=== PATIENT | female | born 1965 | race Caucasian/White ===

== ENCOUNTER 2019-05-28 17:02 | Outpatient (RCR) | payer BC, SELFPAY ==
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
--- NOTE | 2019-06-16 16:31 | PCPTNOTE ---
patient cancelled appt today. mireille
== END 2019-08-26 23:59 | disposition home or self-care (01) ==
LOC: CHSPT 17:02
DX: M43.6 Torticollis (principal)
CPT/HCPCS: 97110; 97140; 97162

== ENCOUNTER 2020-11-03 10:05 | Outpatient (CLI) | payer BC, SELFPAY ==
--- NOTE | 2020-11-03 12:36 | NEURO_ITS ---
PATIENT NUMBER: [id number] IMPRESSION: # Complains of left upper extremity numbness. # Evolving left Carpal Tunnel syndrome; not enough to make electrical diagnosis at this stage. 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 # Normal F- waves. # Normal needle exam. Nerve Conduction Studies Anti Sensory Summary Table Stim Site NR Peak (ms) P-T Amp (?V) Site1 Site2 Delta-P (ms) Dist (cm) Geovani (m/s) Left Median Anti Sensory (2-3nd Digit) Wrist 3.3 58.9 Wrist 2-3nd Digit 3.3 14.0 42 Wrist 3.4 86.2 Wrist 2-3nd Digit 3.3 14.0 42 Right Median Anti Sensory (2-3nd Digit) Wrist 2.9 286.4 Wrist 2-3nd Digit 2.9 14.0 48 Wrist 2.9 107.8 Wrist 2-3nd Digit 2.9 14.0 48 Left Radial Anti Sensory (Base 1st Digit) Wrist 2.4 17.5 Wrist Base 1st Digit 2.4 0.0 Right Radial Anti Sensory (Base 1st Digit) Wrist 2.7 44.3 Wrist Base 1st Digit 2.7 0.0 Left Ulnar Anti Sensory (5th Digit) Wrist 2.3 82.2 Wrist 5th Digit 2.3 14.0 61 Right Ulnar Anti Sensory (5th Digit) Wrist 2.3 74.1 Wrist 5th Digit 2.3 14.0 61 Motor Summary Table Stim Site NR Onset (ms) O-P Amp (mV) Site1 Site2 Delta-0 (ms) Dist (cm) Geovani (m/s) Left Median Motor (Abd Poll Brev) Wrist 3.1 1.7 Elbow Wrist 6.0 28.0 55 Elbow 9.1 1.2 Right Median Motor (Abd Poll Brev) Wrist 3.1 9.5 Elbow Wrist 5.2 28.0 54 Elbow 8.3 9.0 Left Ulnar Motor (Abd Dig Minimi) Wrist 2.4 6.4 A Elbow Wrist 5.2 28.0 54 A Elbow 7.3 5.2 Right Ulnar Motor (Abd Dig Minimi) Wrist 3.0 9.3 A Elbow Wrist 5.7 28.0 52 A Elbow 8.7 8.4 B Elbow Wrist 3.8 20.0 53 B Elbow 6.8 4.3 F Wave Studies NR F-Lat (ms) L-R F-Lat (ms) Left Median (Mrkrs) (Abd Poll Brev) 28.86 0.15 Right Median (Mrkrs) (Abd Poll Brev) 29.02 0.15 Left Ulnar (Mrkrs) (Abd Dig Min) 26.64 0.62 Right Ulnar (Mrkrs) (Abd Dig Min) 27.26 0.62 EMG Side Muscle Nerve Root Ins Act Fibs Amp Dur Recrt Comment Left 1stDorInt Ulnar C8-T1 Nml Nml Nml Nml Nml Left Ext Indicis Radial (Post Int) C7-8 Nml Nml Nml Nml Nml Left Ext Digitorum Radial (Post Int) C7-8 Nml Nml Nml Nml Nml Left BrachioRad Radial C5-6 Nml Nml Nml Nml Nml Left PronatorTeres Median C6-7 Nml Nml Nml Nml Nml Left Abd Poll Brev Median C8-T1 Nml Nml Nml Nml Nml Right 1stDorInt Ulnar C8-T1 Nml Nml Nml Nml Nml Right Ext Indicis Radial (Post Int) C7-8 Nml Nml Nml Nml Nml Right Ext Digitorum Radial (Post Int) C7-8 Nml Nml Nml Nml Nml Right BrachioRad Radial C5-6 Nml Nml Nml Nml Nml Right PronatorTeres Median C6-7 Nml Nml Nml Nml Nml Right Abd Poll Brev Median C8-T1 Nml Nml Nml Nml Nml MTDD
== END 2020-11-03 10:06 | disposition home or self-care (01) ==
PROVIDERS: PCP Family Medicine; Visit Provider Nurse Practitioner
DX: G56.00 Carpal tunnel syndrome, unspecified upper limb (principal); M79.601 Pain in right arm
CPT/HCPCS: 95886; 95913

== ENCOUNTER 2021-04-14 07:36 | Emergency (ER) | payer BC, SELFPAY ==
[2021-04-14] VITALS (11 sets, daily range): BP systolic 119–174; BP diastolic 53–114; PULSE 78–98; RESP 18–20; TEMP 35.9–37.1; O2SAT 93–100
--- NOTE | ~2021-04-14 | XR_ITS ---
EXAMINATION: XR chest 1V portable 04/14/2021 07:57 INDICATION: Weakness PROCEDURE: AP portable chest COMPARISON: 10/30/2009 FINDINGS: The lungs are clear. The cardiomediastinal silhouette is within normal limits. There are no pleural effusions. There is no pneumothorax suspected. IMPRESSION: 1: NO ACUTE CARDIOPULMONARY DISEASE. Reviewed, dictated and finalized at location A. BALL INSPECTOR
--- NOTE | ~2021-04-14 | CT_ITS ---
EXAMINATION: CTA brain carotid DATE: 04/14/2021 09:16 INDICATION: Acute cerebrovascular accident. TECHNIQUE: Computed tomographic angiography (CTA) of the head was performed with 100 mL Omnipaque-350 intravenous contrast. CTA of the neck was performed with intravenous contrast. Automated exposure co ntrol and iterative reconstruction technique were employed. The dose-length product was 1048.02 mGy-c m. Maximum intensity projection and volume rendered 3D-reconstructions were created by the [employer] st on a separate workstation. COMPARISON: Head CT 04/14/2021 FINDINGS: HEAD CTA: There is cortical hypoattenuation the left frontal lobe and left insula, consistent with ac july infarct. There is no intracranial hemorrhage or abnormal mass lesion. The ventricles are normal i n size. The orbits are normal. The mastoid air cells are normal. There is mild mucosal thickening in the paranasal sinuses. The vertebral arteries are codominant. There is no significant stenosis of bas ilar artery or the posterior cerebral arteries. There is no significant stenosis of the intracranial internal carotid arteries or anterior cerebral arteries. Anterior communicating artery is normal. The re is mild stenosis of a left M2 middle cerebral artery branch that was hyperdense on the noncontrast CT. There is no aneurysm. NECK CTA: There is mild scarring at the lung apices. There is mild emphysema. There is a 1.9 cm nodul e in right thyroid lobe. There are no pathologically enlarged lymph nodes. There is mild stenosis of the proximal subclavian arteries and common carotid arteries. There is no significant stenosis of the vertebral arteries. There is plaque in the proximal internal carotid arteries. There is 0% stenosis of the proximal right internal carotid artery relative to normal distal artery lumen diameter (NASCET criteria). There is 0% stenosis of the proximal left internal carotid artery relative to normal dist al artery lumen diameter. There is moderate cervical spondylosis. IMPRESSION: 1. Acute infarct involving the left frontal lobe and left insula. 2. Mild stenosis of a left M2 middle cerebral artery branch that was hyperdense on the noncontrast C T. Note that the attenuation on the noncontrast CT was suspicious for a calcified embolus, which woul d be obscured by contrast on this exam and result in underestimation of stenosis. The arteries distal to this segment opacify normally. 3. 0% stenosis of the proximal internal carotid arteries relative to normal distal artery lumen diam eters (NASCET criteria). 4. Thyroid nodule. Consider thyroid ultrasound for risk stratification. Reviewed, dictated and finalized at location A. CLEANER IMPRESSION: 1. Acute infarct involving the left frontal lobe and left insula. 2. Mild stenosis of a left M2 middle cerebral artery branch that was hyperdens e on the noncontrast CT. Note that the attenuation on the noncontrast CT was jackson spicious for a calcified embolus, which would be obscured by contrast on this e xam and result in underestimation of stenosis. The arteries distal to this segm ent opacify normally. 3. 0% stenosis of the proximal internal carotid arteries relative to normal di stal artery lumen diameters (NASCET criteria). 4. Thyroid nodule. Consider thyroid ultrasound for risk stratification.
--- NOTE | ~2021-04-14 | CT_ITS ---
EXAMINATION: CT brain wo con DATE: 04/14/2021 07:57 INDICATION: Facial weakness. Altered mental status. TECHNIQUE: Computed tomography (CT) of the head was performed without intravenous contrast. The mA wa s adjusted according to patient size. Iterative reconstruction technique was employed. The dose-lengt h product was 681.00 mGy-cm. COMPARISON: None FINDINGS: There is low-attenuation of sanches matter in left frontal lobe and left insula, consistent wi th infarct. There is a hyperdense left M2 middle cerebral artery branch in the range of calcification attenuation (104 HU). There is no intracranial hemorrhage or abnormal mass lesion. The ventricles ar e normal in size. There is mild mucosal thickening in the ethmoid sinuses. The orbits are normal. The mastoid air cells are normal. IMPRESSION: 1. Acute infarct involving the left frontal lobe and left insula. I called this result to Dr. Estee malloy 2. Hyperdense left M2 middle cerebral artery branch in the range of calcification attenuation. Reviewed, dictated and finalized at location A. AULIC ROCKBREAKER OPERATOR IMPRESSION: 1. Acute infarct involving the left frontal lobe and left insula. I called this result to Dr. Sandoval. 2. Hyperdense left M2 middle cerebral artery branch in the range of calcificati on attenuation.
--- NOTE | 2021-04-14 07:41 | ED.NEUROSD ---
HPI - Neuro Symptoms/Deficit General Source: patient and family Mode of arrival: ambulatory Limitations: language barrier and clinical condition ( expressive aphasia) History of Present Illness HPI Narrative: 56-year-old woman with a history of type 2 diabetes, hypertension and dyslipidemia brought to the emergency department today by her after he found her with mumbling speech and facial droop on waking her for work this morning. He states that he saw her last night and she was well. She denies headache, chest pain, vomiting, and recent head injury. She denies prior similar symptoms. Time: 07:15 Related Data Home Medications Medication Instructions Recorded Confirmed albuterol sulfate 2 puff INHALATION Q4-5H PRN 04/14/21 04/14/21 bupropion HCl 300 mg PO DAILY 04/14/21 04/14/21 cyclobenzaprine 10 mg PO TID PRN 04/14/21 04/14/21 dulaglutide [Trulicity] 1.5 mg SUBCUT WEEKLY 04/14/21 04/14/21 fluoxetine 60 mg PO DAILY 04/14/21 04/14/21 furosemide 20 mg PO DAILY 04/14/21 04/14/21 gabapentin 100 mg PO TID 04/14/21 04/14/21 insulin aspart U-100 [Novolog 1 sliding scale dose SUBCUT 04/14/21 04/14/21 U-100 Insulin aspart] USEASDIRECTD lisinopril 30 mg PO DAILY 04/14/21 04/14/21 melatonin 10 mg PO HS 04/14/21 04/14/21 metformin 500 mg PO BID 04/14/21 04/14/21 metoprolol succinate 200 mg PO DAILY 04/14/21 04/14/21 omeprazole 20 mg PO BID 04/14/21 04/14/21 rosuvastatin 20 mg PO HS 04/14/21 04/14/21 ondansetron [Zofran ODT] 8 mg PO Q8H PRN 04/15/21 04/15/21 Allergies Allergy/AdvReac Type Severity Reaction Status Date / Time Sulfa (Sulfonamide Allergy Unknown Rash Verified 04/14/21 09:36 Antibiotics) Latex, Natural Rubber Allergy Swelling Verified 04/14/21 09:36 of Lip/Tongue/Throat Course Course Emergency Course: 0815: Discussed findings with Dr. Hauser, stroke specialist at [facility] in [place]. Does not believe that there is a reason for critical transfer given the time since her last known well And the positive findings on her CT scan. Accepted her for admit pending a open appropriate bed. 0851: Discussed findings with Dr. Garrett, stroke specialist at [facility]. he states that she may be a candidate for clot removal NS for CTA for further evaluation. 0905: She was on her way to the scanner now. 185: patient's findings are stable and her vitals remained stable. There are no beds available at either [facility] or [facility]. She will be an ER hold pending transfer. Vital Signs Vital signs: Vital Signs Temperature 36.1 C L 04/14/21 07:37 Pulse Rate 98 04/14/21 07:37 Respiratory Rate 20 04/14/21 07:37 Blood Pressure 174/114 H 04/14/21 07:37 Pulse Oximetry 100 04/14/21 07:37 Temperature 36.2 C L 04/15/21 22:23 Pulse Rate 93 04/15/21 22:23 Respiratory Rate 18 04/15/21 22:23 Blood Pressure 144/79 H 04/15/21 22:23 Pulse Oximetry 96 04/15/21 22:23 MDM - Neuro Symptoms/Deficit Lab Data Result diagrams: 04/14/21 08:10 04/14/21 08:10 Labs: Lab Results 04/14/21 04/14/21 04/14/21 Range/Units 07:45 07:55 08:10 WBC (4.8-10.8) K/mm3 RBC (4.20-5.40) M/mm3 Hgb (12.0-15.0) g/dL Hct (35.0-49.0) % MCV (78.0-102.0) fL MCH (27.0-31.0) pg MCHC (32.0-36.0) g/dL RDW (11.6-14.4) % Plt Count (150-420) K/mm3 MPV (9.2-11.8) fl Immature Gran % (Auto) (0.0-0.0) % Neut % (Auto) (50.0-70.0) % Lymph % (Auto) (18.0-42.0) % [place] % (Auto) (2.0-11.0) % Eos % (Auto) (1.0-6.0) % Baso % (Auto) (0.0-1.0) % Lymph # (Auto) (1.10-4.50) K/mm3 [place] # (Auto) (0.10-0.90) K/mm3 Eos # (Auto) (0.02-0.50) K/mm3 Baso # (Auto) (0.00-0.10) K/mm3 Abs Immat Gran (auto) (0.00-0.00) K/mm3 Absolute Neuts (auto) (1.7-7.2) K/mm3 Absolute Nucleated RBC (0.00-0.00) K/mm3 Nucleated RBC % (0-0.0) % PT (9.50-12.10) Seconds INR APTT (23.90-30.70) SEC Sodium
--- NOTE | 2021-04-14 07:42 | ECG_ITS ---
Measurements Intervals [place] Rate: 86 P: 49 WA: 141 QRS: 48 QRSD: 80 T: 71 QT: 364 QTc: 437 Interpretive Statements SINUS RHYTHM BORDERLINE T WAVE ABNORMALITY- ANTERIOR LEADS BASELINE ARTIFACT- I, II, III, AVR, AVL, AVF, V1-V6 BORDERLINE ECG Electronically Signed On 04-14-2021 8:58:35 ORE TRIMMER by Ronny Woods D.O.
[2021-04-14 07:57] LABS: Glucose Point of Care 199 mg/dl (65-105)
--- NOTE | 2021-04-14 08:09 | PC.NURSE ---
called [facility] for transfer...no beds available.
--- NOTE | 2021-04-14 08:12 | PC.NURSE ---
called [facility] in [place] for transfer...no bed available
--- NOTE | 2021-04-14 08:13 | PCDIET ---
erp on phone with compliance coordinator at [facility] discussing potential transfer
[2021-04-14 08:16] LABS: Basophils Absolute Auto 0.11 K/mm3 (0.00-0.10); Eosinophils Absolute Auto 0.37 K/mm3 (0.02-0.50); Eosinophils Percent Auto 3.5 % (1.0-6.0); Hematocrit 44.7 % (35.0-49.0); Hemoglobin 14.6 g/dL (12.0-15.0); Immature Granulocyte Absolute 0.07 K/mm3 (0.00-0.00); Immature Granulocyte Percent A 0.7 % (0.0-0.0); Lymphocytes Absolute Auto 3.74 K/mm3 (1.10-4.50); Lymphocytes Percent Auto 35.1 % (18.0-42.0); Mean Corpuscular HGB Conc 32.7 g/dL (32.0-36.0); Mean Corpuscular Hemoglobin 31.4 pg (27.0-31.0); Mean Corpuscular Volume 96.1 fL (78.0-102.0); Mean Platelet Volume 10.3 fl (9.2-11.8); Monocytes Absolute Auto 0.78 K/mm3 (0.10-0.90); Monocytes Percent Auto 7.3 % (2.0-11.0); Neutrophils Absolute Auto 5.6 K/mm3 (1.7-7.2); Neutrophils Percent Auto 52.4 % (50.0-70.0); Platelet Count Result 281 K/mm3 (150-420); Red Blood Count 4.65 M/mm3 (4.20-5.40); Red Cell Distribution Width 12.9 % (11.6-14.4); White Blood Count 10.7 K/mm3 (4.8-10.8)
[2021-04-14 08:29] LABS: Partial Thromboplastin Time 24.7 SEC (23.90-30.70); Prothrombin Time 10.7 Seconds (9.50-12.10)
[2021-04-14 08:34] LABS: Alanine Aminotransferase 41 U/L (14-59); Albumin Level 3.8 g/dL (3.4-5.0); Alkaline Phosphatase 87 U/L (46-116); Anion Gap 13 mmol/L (8-16); Aspartate Amino Transferase 25 U/L (15-37); Bilirubin,Total 0.5 mg/dL (0.00-1.00); Blood Urea Nitrogen 16 mg/dL (7-18); Calcium 9.3 mg/dL (8.5-10.1); Carbon Dioxide 28 mmol/L (21-32); Chloride 97 mmol/L (98-108); Estimated Glomerular Filt Rate 48; Glucose 220 mg/dL (70-99); Osmolality Calculated 294 mOsm/kg (285-295); Potassium 4.3 mmol/L (3.5-5.1); Sodium 138 mmol/L (136-145); Total Protein 7.6 g/dL (6.4-8.2); Troponin I 5.6 ng/L (0.00-60.4)
[2021-04-14 08:40] LABS: SARS-CoV-2 Ag Negative (Negative)
--- NOTE | 2021-04-14 08:40 | PC.NURSE ---
call to [facility] for transfer, awaiting call back. [phone] dr plata speaking with [facility]
--- NOTE | 2021-04-14 09:03 | PC.NURSE ---
[id number] dr pl[address] speaking with dr maier at [facility], pt to go for cta head per his request. ct sent to [facility] per telerad. pt continues with aphasia
--- NOTE | 2021-04-14 09:26 | PC.NURSE ---
pt resting per cot. family at bedside.
--- NOTE | 2021-04-14 10:25 | PC.NURSE ---
CALL TO HENNA AT [facility] , REGARDING CTA RESULTS.
[2021-04-14 12:47] LABS: Glucose Point of Care 154 mg/dl (65-105)
--- NOTE | 2021-04-14 13:12 | PC.NURSE ---
INSULIN PUMP REFILLED AND INFUSING . SETUP PER PT AND RN.
[2021-04-14 14:47] LABS: Glucose Point of Care 140 mg/dl (65-105)
[2021-04-14] MEDS: SODIUM CHLORIDE 0.9% IV 500 ML 999 ML IV CONT (16:51)
[2021-04-14] MEDS: DEXTROSE 5%/0.45% SOD CHL 1,000 ML 100 ML IV CONT (16:52)
[2021-04-14 17:42] LABS: Glucose Point of Care 140 mg/dl (65-105)
--- NOTE | 2021-04-14 17:46 | PC.NURSE ---
pt resting per cot, at bedside. no complaints voiced.
[2021-04-14 18:43] LABS: Glucose Point of Care 137 mg/dl (65-105)
--- NOTE | 2021-04-14 18:55 | PC.NURSE ---
pt to go to room 206 for ER HOLD.
[2021-04-15] VITALS (7 sets, daily range): BP systolic 142–154; BP diastolic 69–86; PULSE 82–93; RESP 14–20; TEMP 35.9–36.6; O2SAT 94–98
[2021-04-15 00:37] LABS: Glucose Point of Care 118 mg/dl (65-105)
[2021-04-15 00:37] LABS: Glucose Point of Care 130 mg/dl (65-105)
[2021-04-15 00:37] LABS: Glucose Point of Care 124 mg/dl (65-105)
[2021-04-15 02:26] LABS: Glucose Point of Care 121 mg/dl (65-105)
[2021-04-15] MEDS: DEXTROSE 5%/0.45% SOD CHL 1,000 ML 100 ML IV CONT ×3 (02:29→20:48)
[2021-04-15 03:05] LABS: Add Urine Microscopic? YES; Appearance Urine Clear (Clear); Bilirubin Urine Negative (Negative); Blood Urine Negative (Negative); Color Urine Light Yellow (Yellow); Glucose Urine UA Negative (Negative); Ketones Urine Negative (Negative); Leukocyte Esterase Ur Trace LEU/UL (Negative); Nitrate Urine Negative (Negative); Protein Urine Trace (Negative); Urobilinogen Urine 0.2 mg/dL (0.2-1.0)
[2021-04-15 03:11] LABS: Amorphous Sediment Urine Few; Bacteria Urine Trace /hpf; RBC Urine 0-2 /hpf (0-2); Squamous Epithelial Cell Urine Few /hpf (Few); WBC Urine 0-3 /hpf (0-3)
[2021-04-15 03:12] LABS: Amphetamine Screen Urine Negative (Negative); Barbiturate Screen Urine Negative (Negative); Benzodiazepines Screen Urine Negative (Negative); Cannabinoid Screen Urine Positive (Negative); Cocaine Screen Urine Negative (Negative); Methadone Screen Urine Negative (Negative); Opiate Screen Urine Negative (Negative); Phencyclidine Screen Urine Negative (Negative)
[2021-04-15 04:43] LABS: Glucose Point of Care 142 mg/dl (65-105)
[2021-04-15 08:12] LABS: Glucose Point of Care 121 mg/dl (65-105)
--- NOTE | 2021-04-15 08:19 | PC.NURSE ---
Call placed to [facility] and talked with arelis. claims she is there list for bed and that they are not sure at this time when a bed will be available. Rajiv called also at this time. talked with catherine and at this time she is on there list, #1 spot and hopely they have open bed this afternoon.
[2021-04-15 10:25] LABS: Glucose Point of Care 134 mg/dl (65-105)
[2021-04-15] MEDS: CLOPIDOGREL BISULFATE 75 MG TABLET PO (15:24)
[2021-04-15 16:22] LABS: Glucose Point of Care 128 mg/dl (65-105)
--- NOTE | 2021-04-15 16:34 | PC.NURSE ---
@ 1500 both [facility] and [facility] were called on bed placement. still no beds. remains on both hospitals waiting list. ERP aware.
[2021-04-15 20:13] LABS: Glucose Point of Care 136 mg/dl (65-105)
--- NOTE | 2021-04-15 22:00 | PC.NURSE ---
report called to pricilla at [facility], notified, pt aware ambulance called back and will be atleast an hour due to other transfers ahead of her
== END 2021-04-15 22:20 | disposition short-term general hospital (02) ==
LOC: CHSED 19:14 → CHS2ND 19:20
PROVIDERS: Emergency Provider Emergency Medicine
DX: I63.9 Cerebral infarction, unspecified (principal); E11.9 Type 2 diabetes mellitus without complications; Z20.822 Contact with and (suspected) exposure to COVID-19; Z79.899 Other long term (current) drug therapy; I10 Essential (primary) hypertension; E78.5 Hyperlipidemia, unspecified; Z79.4 Long term (current) use of insulin
CPT/HCPCS: 36415; 70450; 70496; 70498; 71045; 80053; 80307; 81001; 82948; 84484; 85025; 85610; 85730; 87426; 93005; 96360; 96361; 99285; A9270; C9803; J7040; Q9967

== ENCOUNTER 2021-04-21 09:41 | Outpatient (RCR) | payer BC, SELFPAY ==
--- NOTE | 2021-06-12 14:15 | PCSTNOTE ---
Speech Therapy Initial Evaluation/Discharge: Thank you for referring Pravin Pompa to [facility].? Pt is opting to continue therapy at [facility] due to its closer proxemics to her home. Attending Provider: PHYSICIAN NOT ON STAFF Outpatient Past Medical History Past Medical History No Past Medical/Surgical History Patient/Family Denies Significant Past Medical/ Surgical History Evaluation Information Problem Diagnosis CVA Onset 04/14/21 Additional Evaluation Detail reports patient was admitted to [facility] on 04/14/21 and remained there until late Saturday night when she was transferred to [facility] where she remained until Saturday afternoon. Patient recieved a brief Speech Therapy evaluation but no further Speech Therapy was completed. Subjective Information Patient stated, I need it to Query Text:As Reported By Patient/ so that I can go...when I'm Family gonna...I need a job and I can 't and it's still kind of fuzzy that I can't. Patient reports that she knows her speech has improved since Saturday. States I didn't know anything. Patient states that she knew the people and the information (i.e. names) but could not say them, but upon questioning admitted that she could not even remember the words. Mildly better but still cannot do it. Patient stated using one-word utterances: Store Product Demonstrator, Worksaver and Farm Machinery . Patient stated, It takes a lot to do it but I'm trying. reports patient still gets confused and very frustrated when she wants to get out what she wants to express. Patient reports she works and is on disability and she is motivated to get back to work. Prior Level of Function Home Setting Home Type House Prior Swallow Level Prior In
== END 2021-06-12 14:47 | disposition home or self-care (01) ==
LOC: ANHST 09:41
DX: I69.320 Aphasia following cerebral infarction (principal); R26.89 Other abnormalities of gait and mobility
CPT/HCPCS: 92523

== ENCOUNTER 2021-05-04 11:44 | Outpatient (RCR) | payer BC, SELFPAY ==
--- NOTE | 2021-05-04 13:55 | STOPEVAL ---
Thank you for referring Pravin Pompa to [facility].? The patient is scheduled to be seen for therapy? 2x/week for 10 sessions. Please review, sign, date and return this plan of care SERINA. I agree with and certify that the following plan of care is medically necessary. Referring Physician Date Admitting Provider: Attending Provider: MARISSA JEREZ Referring Provider: MARIO Outpatient Evaluation Start: 05/04/21 13:14 Freq: Status: Active Protocol: Document 05/04/21 12:00 [facility] (Rec: 05/04/21 13:55 [facility] [id number]) Therapy Assessment Status Assessment Status Assessment Status Evaluation Outpatient Past Medical History Past Medical History Source of Past Medical History Patient,Family/Significant Other Neurological History Hx Cerebrovascular Accident (CVA) Yes Hx Other Neurological Disorders Yes: PREVIOUS STROKE LIKE SYMPTOMS WITH APHASIA, TREMOR Cardiovascular History Hx Chest Pain Yes Hx Hypercholesterolemia Yes Hx Hypertension Yes Respiratory History Hx Asthma Yes Hx Bronchitis Yes Hx Chronic Obstructive Pulmonary Disease Yes (COPD) Hx Other Respiratory Disorders Yes: SHORTNESS OF BREATH ON EXERTION Gastrointestinal History Hx Appendectomy Yes Hx Cholecystectomy Yes Hx Gastroesophageal Reflux Disease Yes Hx Other Gastrointestinal Disorders Yes: BARRETTS ESOPHAGUS, GASTRITIS, DUODENITIS, SERATED ADENOMA OF COLON Musculoskeletal History Hx Arthritis Yes Hx Fibromyalgia Yes Hx Orthopedic Surgery Yes: MALLET DEFORMITY OF RIGHT MIDDLE FINGER, CARPAL TUNNEL Hx Osteoporosis Yes Hx Other Musculoskeletal Disorders Yes: TORTICOLLIS, RIGHT CERVICAL RADICULOPATHY, OSTOEPENIA Endocrine History Hx Diabetes Yes Hx Insulin Pump Yes Reproductive History Hx Section Yes Hx Post Menopausal Yes: HOT FLASHES Psychosocial History Hx Anxiety Yes Other History Hx of Latex Allergy Yes Evaluation Information Problem Diagnosis CVA Onset 04-14-21 Subjective Information Pt presents with cognititive Query Text:As Reported By Patient/ and communication deficits ( Family Aphasia) due to left side stroke. Previous Treatments Previous Treatments For This Problem She received a few days of speech t
--- NOTE | 2021-05-04 14:04 | PCSTNOTE ---
On 05/04/21, the student, [Desiree Marcos ], provided care and completed GMG33 documentation on this patient. I have reviewed the student's documentation and agree with the findings.
--- NOTE | 2021-05-08 14:42 | PCSTNOTE ---
On 05/08/21, the student, [Desiree Marcos], provided care and completed [employer] documentation on this patient. I have reviewed the student's documentation and agree with the findings.
--- NOTE | 2021-05-11 12:09 | PCSTNOTE ---
On 05/11/21, the student, [Desiree Marcos], provided care and completed [employer] documentation on this patient. I have reviewed the student's documentation and agree with the findings.
--- NOTE | 2021-05-15 15:36 | PCSTNOTE ---
On 05/15/21, the student, [Desiree Marcos], provided care and completed [employer] documentation on this patient. I have reviewed the student's documentation and agree with the findings.
--- NOTE | 2021-05-18 11:38 | PCSTNOTE ---
On 05/18/21, the student, [Desiree Marcos], provided care and completed [place] documentation on this patient. I have reviewed the student's documentation and agree with the findings.
--- NOTE | 2021-06-12 11:36 | PCSTNOTE ---
I agree with and certify that the above recommended change(s) to the plan of care are medically necessary. ? Referring Physician?Date Admitting Provider: Attending Provider: MARISSA JEREZ Referring Provider: SPEECH THERAPY PROGRESS REPORT Pravin Pompa has completed a total number of 10 out of 10 treatment sessions for Aphasia I69.320 since the evaluation was completed on 05/04/21. Summary of Progress: Patient and family have demonstrated consistent attendance and good compliance of home program. Strategies to promote improvements with set goals are reviewed on a regular basis to facilitate carry over and follow through with targeted goals. Patient has demonstrated excellent progress over this past quarter as evidenced by meeting 2 set goals and showing progression in other goals to target auditory comprehension, reading comprehension and verbal expression skills. The patient continues to struggle with finding the words she wants to say at times and some thoughts are somewhat unorganized. She also continues to struggle with writing abilities resulting in unorganized thoughts, spelling errors, and omission of words. 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 Recommendations: Thank you for referring Pravin Pompa to [facility].? The patient is scheduled to be seen for therapy? 2x/week for 10 sessions.? Please review, sign, date and return this plan of care SERINA.
--- NOTE | 2021-06-15 10:21 | PCSTNOTE ---
Patient called & cancelled scheduled appointment this date due to being sick.
--- NOTE | 2021-06-29 08:29 | PCSTNOTE ---
The patient treatment was not able to be completed on 06/29/21 due to illness. Will plan to continue treatment per plan of care.
--- NOTE | 2021-07-17 10:05 | STOPEVAL ---
Addendum entered by BRIE Montiel 07/18/21 16:30: Please disregard the note below and refer to note dated 07/18/21 for Speech Therapy Evaluation and updated plan of care. Original Note: Thank you for referring Pravin Pompa to [facility].? The patient is scheduled to be seen for therapy? _2x/week for 5 weeks. Please review, sign, date and return this plan of care SERINA. I agree with and certify that the following plan of care is medically necessary. Referring Physician Date Admitting Provider: Attending Provider: MARISSA JEREZ Referring Provider: MARIO Outpatient Evaluation Start: 05/04/21 13:14 Freq: Status: Active Protocol: Document 07/17/21 08:00 [facility] (Rec: 07/17/21 10:03 [facility] [id number]) Therapy Assessment Status Assessment Status Assessment Status Re-evaluation Outpatient Past Medical History Past Medical History Source of Past Medical History Patient,Family/Significant Other Neurological History Hx Cerebrovascular Accident (CVA) Yes Hx Other Neurological Disorders Yes: PREVIOUS STROKE LIKE SYMPTOMS WITH APHASIA, TREMOR Cardiovascular History Hx Chest Pain Yes Hx Hypercholesterolemia Yes Hx Hypertension Yes Respiratory History Hx Asthma Yes Hx Bronchitis Yes Hx Chronic Obstructive Pulmonary Disease Yes (COPD) Hx Other Respiratory Disorders Yes: SHORTNESS OF BREATH ON EXERTION Gastrointestinal History Hx Appendectomy Yes Hx Cholecystectomy Yes Hx Gastroesophageal Reflux Disease Yes Hx Other Gastrointestinal Disorders Yes: BARRETTS ESOPHAGUS, GASTRITIS, DUODENITIS, SERATED ADENOMA OF COLON Musculoskeletal History Hx Arthritis Yes Hx Fibromyalgia Yes Hx Orthopedic Surgery Yes: MALLET DEFORMITY OF RIGHT MIDDLE FINGER, CARPAL TUNNEL Hx Osteoporosis Yes Hx Other Musculoskeletal Disorders Yes: TORTICOLLIS, RIGHT CERVICAL RADICULOPATHY, OSTOEPENIA Endocrine History Hx Diabetes Yes Hx Insulin Pump Yes Reproductive History Hx Section Yes Hx Post Menopausal Yes: HOT FLASHES Psychosocial History Hx Anxiety Yes Other History Hx of Latex Allergy Yes Pain Assessment Timing of Pain Assessment Timing of Pain Assessment Pre-Treatment Self Report Self Report Pain Level 0 Pain Score Pain Score 0: Self Report Language Evaluation Auditory Comprehension Body Part Identification (% Accuracy (0- 100 100))
--- NOTE | 2021-07-18 16:31 | STOPEVAL ---
SPEECH THERAPY RE-EVALUATION AND PLAN OF CARE UPDATE Thank you for referring Pravin Pompa to [facility].? The patient is scheduled to be seen for therapy? 2 x/week for 4 weeks. Please review, sign, date and return this plan of care SERINA. I agree with and certify that the following plan of care is medically necessary. Referring Physician Date Attending Provider: MARISSA MARTIN Outpatient Evaluation Start: 05/04/21 13:14 Freq: Status: Active Protocol: Document 07/17/21 08:00 [facility] (Rec: 07/17/21 10:03 [facility] [id number]) Therapy Assessment Status Assessment Status Assessment Status Re-evaluation Outpatient Past Medical History Past Medical History Source of Past Medical History Patient,Family/Significant Other Neurological History Hx Cerebrovascular Accident (CVA) Yes Hx Other Neurological Disorders Yes: PREVIOUS STROKE LIKE SYMPTOMS WITH APHASIA, TREMOR Cardiovascular History Hx Chest Pain Yes Hx Hypercholesterolemia Yes Hx Hypertension Yes Respiratory History Hx Asthma Yes Hx Bronchitis Yes Hx Chronic Obstructive Pulmonary Disease Yes (COPD) Hx Other Respiratory Disorders Yes: SHORTNESS OF BREATH ON EXERTION Gastrointestinal History Hx Appendectomy Yes Hx Cholecystectomy Yes Hx Gastroesophageal Reflux Disease Yes Hx Other Gastrointestinal Disorders Yes: BARRETTS ESOPHAGUS, GASTRITIS, DUODENITIS, SERATED ADENOMA OF COLON Musculoskeletal History Hx Arthritis Yes Hx Fibromyalgia Yes Hx Orthopedic Surgery Yes: MALLET DEFORMITY OF RIGHT MIDDLE FINGER, CARPAL TUNNEL Hx Osteoporosis Yes Hx Other Musculoskeletal Disorders Yes: TORTICOLLIS, RIGHT CERVICAL RADICULOPATHY, OSTOEPENIA Endocrine History Hx Diabetes Yes Hx Insulin Pump Yes Reproductive History Hx Section Yes Hx Post Menopausal Yes: HOT FLASHES Psychosocial History Hx Anxiety Yes Other History Hx of Latex Allergy Yes Pain Assessment Timing of Pain Assessment Timing of Pain Assessment Pre-Treatment Self Report Self Report Pain Level 0 Pain Score Pain Score 0: Self Report Language Evaluation Auditory Comprehension Body Part Identification (% Accuracy (0- 100 100)) Object Identification (% Accuracy (0-100 100 )) Moderate Yes/No Questions (% Accuracy (0 100 -1
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
--- NOTE | 2021-08-03 09:15 | PCSTNOTE ---
This treatment is being continued on visit number [id number]. Please see documentation on both accounts to view progress. Completed interventions, outcomes, and problems have been marked as Inactive to facilitate the copying of the Care plan routine for recurring accounts.
== END 2021-07-31 13:00 | disposition still patient (30) ==
LOC: CHSST 11:44
DX: I69.920 Aphasia following unspecified cerebrovascular disease (principal); R26.89 Other abnormalities of gait and mobility
CPT/HCPCS: 92507; 92523

== ENCOUNTER 2021-05-15 09:24 | Outpatient (CLI) | payer BC, SELFPAY ==
[2021-05-15 10:13] LABS: Creatinine Urine 45.47 mg/dL (40-278); MALB Creatinine Ratio 65.7 mg/g (0-30); Microalbumin Urine Random 29.9 mg/L
[2021-05-15 10:45] LABS: Thyroid Stimulating Hormone Reflex 1.12 u/IU/mL (0.36-3.74)
== END 2021-05-15 09:25 | disposition home or self-care (01) ==
LOC: CHSLAB 09:27
PROVIDERS: PCP Nurse Practitioner
DX: E11.65 Type 2 diabetes mellitus with hyperglycemia (principal); Z79.4 Long term (current) use of insulin
CPT/HCPCS: 36415; 82043; 84439; 84443

== ENCOUNTER 2021-08-03 09:00 | Outpatient (RCR) | payer BC, SELFPAY ==
--- NOTE | 2021-08-03 09:14 | PCSTNOTE ---
The treatment documented on this account is a continuation of the treatment documented on visit number [id number]. Please see documentation on both accounts to view progress. The Plan of Care has been transitioned and updated within the new V#. I have addressed and agree with the discipline specific Problems, Interventions, and Goals for the current certification period. Completed interventions, outcomes, and problems have been marked as Inactive to facilitate the copying of the Care plan routine for recurring accounts.
--- NOTE | 2021-08-14 09:44 | PCSTNOTE ---
Patient called & cancelled scheduled appointment this date due to illness.
--- NOTE | 2021-08-14 10:46 | STOPEVAL ---
Thank you for referring Pravin Pompa to [facility].? The patient is scheduled to be seen for therapy? _2x/week for 4 weeks. Please review, sign, date and return this plan of care SERINA. I agree with and certify that the following plan of care is medically necessary. Referring Physician Date Attending Provider: MARISSA JEREZ Summary of Progress: Patient has demonstrated consistent attendance and good compliance of prescribed home program. Strategies to promote improvements with set goals are reviewed on a regular basis to facilitate carry over and follow through with targeted goals. Patient has demonstrated excellent progress over this past 4 weeks as evidenced by meeting goals set in word-finding as well as comprehension and delayed recall of moderate to complex paragraphs. Accuracies on specific goals can be viewed in the plan of care update and new goals have been set to continue with progress to help patient reach her optimal potential to be able to communicate her daily and medical needs for health and safety.
--- NOTE | 2021-09-11 09:30 | STOPEVAL ---
Thank you for referring Pravin Pompa to [facility].? The patient is scheduled to be seen for therapy? 2x/week for 4 weeks. Please review, sign, date and return this plan of care SERINA. I agree with and certify that the following plan of care is medically necessary. Referring Physician Date Attending Provider: MARISSA MARTIN Outpatient Evaluation Start: 08/03/21 09:16 Freq: Status: Active Protocol: Document 09/11/21 08:00 [facility] (Rec: 09/11/21 09:29 [facility] [id number]) Therapy Assessment Status Assessment Status Assessment Status Re-evaluation Outpatient Past Medical History Past Medical History Source of Past Medical History Patient,Family/Significant Other Neurological History Hx Cerebrovascular Accident (CVA) Yes Hx Other Neurological Disorders Yes: PREVIOUS STROKE LIKE SYMPTOMS WITH APHASIA, TREMOR Cardiovascular History Hx Chest Pain Yes Hx Hypercholesterolemia Yes Hx Hypertension Yes Respiratory History Hx Asthma Yes Hx Bronchitis Yes Hx Chronic Obstructive Pulmonary Disease Yes (COPD) Hx Other Respiratory Disorders Yes: SHORTNESS OF BREATH ON EXERTION Gastrointestinal History Hx Appendectomy Yes Hx Cholecystectomy Yes Hx Gastroesophageal Reflux Disease Yes Hx Other Gastrointestinal Disorders Yes: BARRETTS ESOPHAGUS, GASTRITIS, DUODENITIS, SERATED ADENOMA OF COLON Musculoskeletal History Hx Arthritis Yes Hx Fibromyalgia Yes Hx Orthopedic Surgery Yes: MALLET DEFORMITY OF RIGHT MIDDLE FINGER, CARPAL TUNNEL Hx Osteoporosis Yes Hx Other Musculoskeletal Disorders Yes: TORTICOLLIS, RIGHT CERVICAL RADICULOPATHY, OSTOEPENIA Endocrine History Hx Diabetes Yes Hx Insulin Pump Yes Reproductive History Hx Section Yes Hx Post Menopausal Yes: HOT FLASHES Psychosocial History Hx Anxiety Yes Other History Hx of Latex Allergy Yes Pain Assessment Timing of Pain Assessment Timing of Pain Assessment Pre-Treatment Self Report Self Report Pain Level 0 Pain Score Pain Score 0: Self Report Language Evaluation Verbal Expression Sentence Imitation (% Accuracy (0-100)) 57 Sentence Formation Given a Stimulus Word 80 (% Accuracy (0-100)) Sentence Formation in Spontaneous Mild Deficits Conversation Factors Limiting Verbal Function Aphasia,Decreased Pr
--- NOTE | 2021-10-02 10:56 | PCSTNOTE ---
Patient called & cancelled scheduled appointment this date due to being sick.]
--- NOTE | 2021-10-09 09:15 | STOPEVAL ---
Addendum entered by BRIE Franklin 10/23/21 11:43: Modify plan frequency to 2x/week for 10 sessions. Original Note: Thank you for referring Pravin Pompa to [facility].? The patient is scheduled to be seen for therapy? 2x/week for 4 weeks. Please review, sign, date and return this plan of care SERINA. I agree with and certify that the following plan of care is medically necessary. Referring Physician Date Attending Provider: MARISSA JEREZ Summary of Progress: Patient has demonstrated consistent attendance and excellent compliance of home program. Strategies to promote improvements with set goals are reviewed on a regular basis to facilitate carry over and follow through with targeted goals. Patient has demonstrated excellent progress over this past quarter as evidenced by meeting goals in verbal expression and partially meeting goals in written expression and working memory. Patient continues to demonstrate difficulty in functional problem solving and consistently communicating ideas in conversational speech. Accuracies on specific goals can be viewed in the plan of care update and new goals have been set to continue with progress to help patient reach her optimal potential in returning to prior level of function.
--- NOTE | 2021-10-23 10:00 | PCSTNOTE ---
Patient called & cancelled scheduled appointment on 10-19-21 due to being sick
--- NOTE | 2021-10-31 10:34 | PCSTNOTE ---
Patient called & cancelled scheduled appointment this date due to not feeling well.
--- NOTE | 2021-11-02 11:40 | PCSTNOTE ---
This treatment is being continued on visit number [id number]. Please see documentation on both accounts to view progress. Completed interventions, outcomes, and problems have been marked as Inactive to facilitate the copying of the Care plan routine for recurring accounts.
== END 2021-11-01 23:59 | disposition home or self-care (01) ==
LOC: CHSST 09:00
DX: I69.920 Aphasia following unspecified cerebrovascular disease (principal); R26.89 Other abnormalities of gait and mobility
CPT/HCPCS: 92507

== ENCOUNTER 2021-11-02 08:00 | Outpatient (RCR) | payer BC, SELFPAY ==
--- NOTE | 2021-11-02 11:41 | PCSTNOTE ---
The treatment documented on this account is a continuation of the treatment documented on visit number [id number]. Please see documentation on both accounts to view progress. The Plan of Care has been transitioned and updated within the new A#. I have addressed and agree with the discipline specific Problems, Interventions, and Goals for the current certification period. Completed interventions, outcomes, and problems have been marked as Inactive to facilitate the copying of the Care plan routine for recurring accounts.
--- NOTE | 2021-11-21 11:24 | PCSTNOTE ---
I agree with and certify that the above recommended change(s) to the plan of care are medically necessary. ? Referring Physician?Date Admitting Provider: Attending Provider: MARISSA JEREZ Referring Provider: SPEECH THERAPY PROGRESS REPORT Pravin Pompa has completed a total number of 10 treatment sessions for Asphasia I69.320 since the previous progress report written on 10/09/21. Summary of Progress: Patient has demonstrated consistent attendance and good compliance of home program. Strategies to promote improvements with set goals are reviewed on a regular basis to facilitate carry over and follow through with targeted goals. Patient has demonstrated excellent progress over this past quarter as evidenced by meeting 2 set goals along with progressing in other goals. The patient continues to show improvements in written expression skills through completion of grammatically correct sentences when given a picture. Patient continues to require an increase in time for completion of verbal sentences within a 5-10 second time frame. Accuracies on specific goals can be viewed in the plan of care update and new goals have been set to continue with progress to help patient reach her optimal potential to be able to return to work and prior level of function. Recommendations: Thank you for referring Pravin Pompa to [facility].? The patient is scheduled to be seen for therapy? 1x/week for 10 sessions.? Please review, sign, date and return this plan of care SERINA.
--- NOTE | 2021-11-28 15:49 | PCSTNOTE ---
Patient called & cancelled scheduled appointment this date.
--- NOTE | 2021-12-28 15:07 | PCSTNOTE ---
Patient was called & cancelled scheduled appointment on December 26 due to [employer] being out sick.
--- NOTE | 2022-02-13 10:44 | PCSTNOTE ---
Admitting Provider: Attending Provider: MARISSA JEREZ Patient:Pravin Pompa Date of :1965 Patient has not returned for any further treatments since 01/23/2022, therefore she will be discharged at this time. Patient?s initial visit was on 05-04-21 and she had a total of 48 visits. The goals have been partially met. Over the course of treatment the patient has made significant improvements in verbal expression and language skills. 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 Thank you for referring this patient to [facility]. Please review, sign, date and return this discharge summary SERINA. I have been updated about the patient's current status and I agree with discharge from the above service at this time. Referring Physician Date
== END 2022-01-31 23:59 | disposition home or self-care (01) ==
LOC: CHSST 08:00
DX: I69.920 Aphasia following unspecified cerebrovascular disease (principal); R26.89 Other abnormalities of gait and mobility
CPT/HCPCS: 92507

== ENCOUNTER 2022-01-23 11:28 | Emergency (ER) | payer BC, SELFPAY ==
[2022-01-23 11:30] VITALS: BP 142/75; PULSE 100; RESP 20; O2SAT 98
--- NOTE | 2022-01-23 11:55 | ED.PSYCH ---
HPI - Psych General Chief Complaint: Psychiatric Symptoms Stated Complaint: SUICIDAL THOUGHTS Time Seen by Provider: 01/23/22 11:55 Source: patient Mode of arrival: ambulatory Limitations: no limitations History of Present Illness HPI Narrative: 56-year-old female with a history of diabetes mellitus, hypertension, dyslipidemia, CVA in a murmur of 2020 without any residual defect, depression presented to the ER with -- depression with suicidal ideation. She has been depressed for many years but this has gotten worse since she had a stroke in April of 2021. -- Yesterday she attempted to overdose herself with insulin through her insulin pump but this did not work. She has not overdosed on any other medication. -- She has multiple stresses related to her finances and not being able to work full-time. MD complaint: suicidal ideation and feels depressed Onset (ago): year(s) Duration: intermittent History of same: Yes Relieving factors: none Exacerbating factors: none Associated psychiatric symptoms: none Associated symptoms: denies other symptoms Treatments prior to arrival: none ( Patient has been on fluoxetine) If self harm: admits thoughts of self harm, has acted on plan and intentional overdose Related Data Home Medications Medication Instructions Recorded Confirmed albuterol sulfate 90 mcg/actuation 2 puff inhalation Q4-5H PRN 04/14/21 01/23/22 aerosol inhaler Shortness Of Breath bupropion HCl 300 mg 24 hr tablet, 300 mg PO DAILY 04/14/21 01/23/22 extended release cyclobenzaprine 10 mg tablet 10 mg PO TID PRN Muscle Spasm 04/14/21 01/23/22 dulaglutide 1.5 mg/0.5 mL 1.5 mg subcut WEEKLY 04/14/21 01/23/22 subcutaneous pen injector (Trulicity) fluoxetine 20 mg capsule 60 mg PO DAILY 04/14/21 01/23/22 furosemide 20 mg tablet 20 mg PO DAILY 04/14/21 01/23/22 gabapentin 100 mg capsule 100 mg PO TID 04/14/21 01/23/22 insulin aspart U-100 100 unit/mL 1 sliding scale dose subcut 04/14/21 01/23/22 subcutaneous solution (Novolog USEASDIRECTD U-100 Insulin aspart) lisinopril 30 mg tablet 30 mg PO DAILY 04/14/21 01/23/22 melatonin 10 mg tablet 10 mg PO HS 04/14/21 01/23/22 metformin 500 mg tablet,extended 500 mg PO BID 04/14/21 01/23/22 release 24 hr metoprolol succinate 200 mg 200 mg PO DAILY 04/14/21 01/23/22 tablet,extended release 24 hr omeprazole 20 mg capsule,delayed 20 mg PO BID 04/14/21 01/23/22 release rosuvastatin 20 mg tablet 20 mg PO HS 04/14/21 01/23/22 ondansetron 8 mg disintegrating 8 mg PO Q8H PRN Vomiting 04/15/21 01/23/22 tablet Allergies Allergy/AdvReac Type Severity Reaction Status Date / Time Sulfa (Sulfonamide Allergy Unknown Rash Verified 01/23/22 12:06 Antibiotics) Latex, Natural Rubber Allergy Swelling Verified 01/23/22 12:06 of Lip/Tongue/Throat Review of Systems Review of Systems: All systems reviewed & are unremarkable except as noted in HPI and below Constitutional: Constitutional: Reports as per HPI and Reports no additional constitutional complaints Eyes: Eyes: Reports as per HPI and Reports no additional eye complaints ENT: Reports system reviewed and no additional complaints, except as documented and Reports as per HPI Cardiovascular: Cardiovascular: Reports as per HPI and Reports no additional cardiovascular complaints Respiratory: Respiratory: Reports as per HPI and Reports no additional respiratory complaints Gastrointestinal: Gastrointestinal: Reports as per HPI and Reports no additional gastrointestinal complaints Genitourinary: Genitourinary: Reports no additional female genitourinary complaints and Reports as per HPI Musculoskeletal: Musculoskeletal: Reports no additional musculoskeletal complaints and Reports as per HPI Integumentary/Breasts: Skin/Breast: Reports system reviewed and no additional complaints, except as docu and Reports as per HPI Neurologic: Reports system reviewed and no additional complaints, except as documented and Re
--- NOTE | 2022-01-23 11:59 | ECG_ITS ---
Measurements Intervals [place] Rate: 94 P: 41 DC: 146 QRS: 46 QRSD: 78 T: 81 QT: 376 QTc: 470 Interpretive Statements SINUS RHYTHM NONSPECIFIC T-WAVE ABNORMALITY Electronically Signed On 01-23-2022 12:42:15 CDT by Jeffy Santacruz M.D.
[2022-01-23 12:22] LABS: Basophils Percent Auto 0.6 % (0.0-1.0); Eosinophils Absolute Auto 0.44 K/mm3 (0.02-0.50); Eosinophils Percent Auto 2.6 % (1.0-6.0); Hemoglobin 14.6 g/dL (12.0-15.0); Immature Granulocyte Absolute 0.11 K/mm3 (0.00-0.00); Immature Granulocyte Percent A 0.7 % (0.0-0.0); Lymphocytes Absolute Auto 6.56 K/mm3 (1.10-4.50); Lymphocytes Percent Auto 39.1 % (18.0-42.0); Mean Corpuscular HGB Conc 33.2 g/dL (32.0-36.0); Mean Corpuscular Volume 93.4 fL (78.0-102.0); Mean Platelet Volume 10.6 fl (9.2-11.8); Monocytes Absolute Auto 1.47 K/mm3 (0.10-0.90); Monocytes Percent Auto 8.8 % (2.0-11.0); Neutrophils Absolute Auto 8.1 K/mm3 (1.7-7.2); Neutrophils Percent Auto 48.2 % (50.0-70.0); Platelet Count Result 340 K/mm3 (150-420); Red Blood Count 4.71 M/mm3 (4.20-5.40); Red Cell Distribution Width 13.2 % (11.6-14.4); White Blood Count 16.8 K/mm3 (4.8-10.8)
[2022-01-23 12:34] LABS: Add Urine Microscopic? YES; Appearance Urine Clear (Clear); Bilirubin Urine Negative (Negative); Blood Urine Negative (Negative); Color Urine Light Yellow (Yellow); Glucose Urine UA Negative (Negative); Ketones Urine Negative (Negative); Leukocyte Esterase Ur 1+ LEU/UL (Negative); Nitrate Urine Positive (Negative); Protein Urine Negative (Negative); Urobilinogen Urine 0.2 mg/dL (0.2-1.0)
[2022-01-23 12:41] LABS: Amphetamine Screen Urine Negative (Negative); Barbiturate Screen Urine Negative (Negative); Benzodiazepines Screen Urine Negative (Negative); Cannabinoid Screen Urine Positive (Negative); Cocaine Screen Urine Negative (Negative); Methadone Screen Urine Negative (Negative); Opiate Screen Urine Negative (Negative); Phencyclidine Screen Urine Negative (Negative)
[2022-01-23 12:42] LABS: Bacteria Urine 3+ /hpf; RBC Urine None seen /hpf (0-2); Squamous Epithelial Cell Urine Occasional /hpf (Few)
[2022-01-23 12:50] LABS: Acetaminophen < 2 ug/mL (10-30); Alanine Aminotransferase 97 U/L (14-59); Alkaline Phosphatase 176 U/L (46-116); Anion Gap 10 mmol/L (8-16); Aspartate Amino Transferase 25 U/L (15-37); Bilirubin,Total 0.4 mg/dL (0.00-1.00); Blood Urea Nitrogen 18 mg/dL (7-18); Calcium 9.5 mg/dL (8.5-10.1); Carbon Dioxide 27 mmol/L (21-32); Chloride 99 mmol/L (98-108); Estimated CRCL calculation 42 ml/min; Estimated Glomerular Filt Rate 44; Ethanol < 3 mg/dL (0-6); Glucose 92 mg/dL (70-99); Osmolality Calculated 283 mOsm/kg (285-295); Potassium 3.7 mmol/L (3.5-5.1); Salicylate 2.6 mg/dL (2.8-20.0); Sodium 136 mmol/L (136-145); Thyroid Stimulating Hormone 2.11 uIU/mL (0.36-3.74); Total Protein 8.5 g/dL (6.4-8.2)
[2022-01-23 13:00] VITALS: BP 135/80; PULSE 79; RESP 16; O2SAT 99
[2022-01-23] MEDS: CIPROFLOXACIN 250 MG TABLET PO (13:27)
[2022-01-23 14:30] VITALS: BP 132/78; PULSE 64; RESP 16; TEMP 36.9; O2SAT 99
[2022-01-23 15:32] LABS: SARS-CoV-2 RNA PCR Negative (Negative)
[2022-01-23 15:52] VITALS: BP 140/78; PULSE 81; RESP 16; TEMP 36.4; O2SAT 98
== END 2022-01-23 16:00 | disposition home or self-care (01) ==
PROVIDERS: Emergency Provider Internal Medicine Critical Care Medicine; PCP Nurse Practitioner
DX: F32.A Depression, unspecified (principal); R45.851 Suicidal ideations; N39.0 Urinary tract infection, site not specified; N28.9 Disorder of kidney and ureter, unspecified; Z20.822 Contact with and (suspected) exposure to COVID-19; Z79.899 Other long term (current) drug therapy
CPT/HCPCS: 36415; 80053; 80307; 81001; 84443; 85025; 87077; 87086; 87088; 87186; 93005; 99284; A9270; C9803; U0003; U0005

== ENCOUNTER 2022-02-14 07:54 | Emergency (ER) | payer BC, SELFPAY ==
--- NOTE | ~2022-02-14 | XR_ITS ---
EXAMINATION: XR pelvis 1-2V DATE: 02/14/2022 08:40 INDICATION: Hip pain post fall TECHNIQUE: An anteroposterior view of the pelvis was obtained. COMPARISON: None. FINDINGS: Bone alignment is normal. No fracture or suspected avascular necrosis. Mild osteoarthritis at the rig ht sacroiliac joint. Left sacroiliac joint and bilateral hip joint spaces appear relatively preserved . Couple phleboliths in the pelvis. IMPRESSION: 1. Mild right sacroiliac osteoarthritis. Otherwise unremarkable pelvis radiograph. Reviewed, dictated and finalized at location A. IMPRESSION: 1. Mild right sacroiliac osteoarthritis. Otherwise unremarkable pelvis radiogra ph.
--- NOTE | ~2022-02-14 | XR_ITS ---
EXAMINATION: XR hand RT min 3V DATE: 02/14/2022 08:40 INDICATION: Right hand pain post fall TECHNIQUE: Posteroanterior, oblique and lateral views of the right hand were obtained. COMPARISON: None. FINDINGS: Diffuse osteopenia. Oblique extra-articular diaphyseal fracture of the fifth metacarpal with 3 mm pal mar/radial displacement and a couple mm of overriding resulting in slight shortening of the metacarpa l. No other fractures identified. Polyarticular osteoarthritis, moderate severity at the distal inter phalangeal joints and mild at the first carpal metacarpal and remaining interphalangeal joints. Likel y loose osteochondral body versus small heterotopic ossicle projecting distal to the tip of the ulnar styloid process. IMPRESSION: 1. Mildly displaced diaphyseal fracture of the right fifth metacarpal. Reviewed, dictated and finalized at location A.
[2022-02-14 07:59] VITALS: BP 126/98; PULSE 89; RESP 18; TEMP 36.8; O2SAT 97
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
[2022-02-14] MEDS: KETOROLAC 30 MG/ML VIAL (*BKC) IM (08:38)
[2022-02-14 09:32] VITALS: BP 116/64; PULSE 85; RESP 18; TEMP 36.6; O2SAT 97
--- NOTE | 2022-02-14 10:27 | PC.NURSE ---
Medical records contacted to fax chart to Dr Alethea Roberto, PCP, per patient request at [phone]
== END 2022-02-14 09:32 | disposition home or self-care (01) ==
PROVIDERS: Emergency Provider Internal Medicine Critical Care Medicine; PCP Nurse Practitioner
DX: S62.306A Unspecified fracture of fifth metacarpal bone, right hand, initial encounter for closed fracture (principal); W19.XXXA Unspecified fall, initial encounter
CPT/HCPCS: 29125; 72170; 73130; 96372; 99284; A4565; J1885

== ENCOUNTER 2022-02-16 20:05 | Emergency (ER) | payer BC, SELFPAY ==
[2022-02-16] VITALS (20 sets, daily range): BP systolic 89–133; BP diastolic 52–70; PULSE 100–123; RESP 15–29; TEMP 36.6–37.2; O2SAT 90–99
--- NOTE | ~2022-02-16 | XR_ITS ---
EXAMINATION: XR chest 2V DATE: 02/16/2022 22:06 INDICATION: Fever. TECHNIQUE: Frontal and lateral views of the chest were obtained. COMPARISON: Chest single view 04/14/2021 FINDINGS: A calcified right lung nodule is consistent with old granulomatous disease. No pleural effu arline or pneumothorax. The heart size is normal. There is an electronic implant in left anterior chest wall. IMPRESSION: 1. No acute cardiopulmonary disease. Reviewed, dictated and finalized at location A.
--- NOTE | ~2022-02-16 | CT_ITS ---
EXAMINATION: CT abdomen pelvis w con DATE: 02/16/2022 22:05 INDICATION: Low abdominal pain. Nausea. TECHNIQUE: Computed tomography (CT) of the abdomen and pelvis was performed with 100 mL Omnipaque 350 intravenous contrast. Automated exposure control and iterative reconstruction technique were employe d. The dose-length product was 1275.29 mGy-cm. COMPARISON: CT abdomen pelvis 05/04/2009 FINDINGS: A calcified right lung nodule and calcified hilar lymph nodes are consistent with old granu lomatous disease. No pleural effusion. The heart size is normal. No pericardial effusion. There are c oronary artery calcifications. Calcifications in the liver and spleen are consistent with old granulo matous disease. The gallbladder is absent. The pancreas, adrenal glands, and kidneys are normal. Ther e is wall thickening of the transverse and proximal descending colon with surrounding fat stranding, consistent with colitis. The appendix is normal in size. There are no pathologically enlarged lymph n odes. There is a small volume of pelvic ascites. There is no significant stenosis of celiac axis, sup erior mesenteric artery, and inferior mesenteric artery. There is moderate thoracic spondylosis. IMPRESSION: 1. Colitis involving the transverse and proximal descending colon. 2. Small volume of pelvic ascites. Reviewed, dictated and finalized at location A.
--- NOTE | 2022-02-16 20:29 | ED.NAVMDI ---
HPI - Nausea/Vomiting/Diarrhea General Chief complaint: Nausea/Vomiting/Diarrhea Stated complaint: VOMITING, DIAHRREA Time Seen by Provider: 02/16/22 20:08 Source: patient and RN notes reviewed Mode of arrival: ambulatory Limitations: no limitations History of Present Illness MD elicited complaint: nausea, vomiting and diarrhea ( bright red blood on toilet paper patient has a history of hemorrhoids) Onset (ago): day(s) (1) Description of vomiting: bilious Description of diarrhea: watery Associated nausea: Yes Associated abdominal pain: No Exacerbating factors: eating Relieving factors: none Associated symptoms: myalgias, cough, fever/chills, headaches, malaise and nausea/vomiting Treatment prior to arrival: NSAIDs Related Data Home Medications Medication Instructions Recorded Confirmed albuterol sulfate 90 mcg/actuation 2 puff inhalation Q4-5H PRN 04/14/21 02/16/22 aerosol inhaler Shortness Of Breath bupropion HCl 300 mg 24 hr tablet, 300 mg PO DAILY 04/14/21 02/16/22 extended release cyclobenzaprine 10 mg tablet 10 mg PO TID PRN Muscle Spasm 04/14/21 02/16/22 dulaglutide 1.5 mg/0.5 mL 1.5 mg subcut WEEKLY 04/14/21 02/16/22 subcutaneous pen injector (Trulicity) fluoxetine 20 mg capsule 60 mg PO DAILY 04/14/21 02/16/22 furosemide 20 mg tablet 20 mg PO DAILY 04/14/21 02/16/22 gabapentin 100 mg capsule 100 mg PO TID 04/14/21 02/16/22 insulin aspart U-100 100 unit/mL 1 sliding scale dose subcut 04/14/21 02/16/22 subcutaneous solution (Novolog USEASDIRECTD U-100 Insulin aspart) lisinopril 30 mg tablet 30 mg PO DAILY 04/14/21 02/16/22 melatonin 10 mg tablet 10 mg PO HS 04/14/21 02/16/22 metformin 500 mg tablet,extended 500 mg PO BID 04/14/21 02/16/22 release 24 hr metoprolol succinate 200 mg 200 mg PO DAILY 04/14/21 02/16/22 tablet,extended release 24 hr omeprazole 20 mg capsule,delayed 20 mg PO BID 04/14/21 02/16/22 release rosuvastatin 20 mg tablet 20 mg PO HS 04/14/21 02/16/22 clonazepam 1 mg tablet 1 mg PO PRN PRN Anxiety 02/16/22 02/16/22 Allergies Allergy/AdvReac Type Severity Reaction Status Date / Time Sulfa (Sulfonamide Allergy Unknown Rash Verified 02/16/22 20:39 Antibiotics) Latex, Natural Rubber Allergy Swelling Verified 02/16/22 20:39 of Lip/Tongue/Throat Review of Systems Review of Systems: All systems reviewed & are unremarkable except as noted in HPI and below PMFSH Past Medical History Medical History (Updated 02/17/22 @ 00:00 by Background Daemon) CVA (cerebral vascular accident) Depression with suicidal ideation Diabetes Dyslipidemia GERD (gastroesophageal reflux disease) Hemorrhoids Hypertension Torticollis Surgical History Surgical History (Updated 02/16/22 @ 20:40 by Alirio Rocha MD) Hx of cholecystectomy Social History Social History Substance use type: does not use Exam Const: General: no acute distress, alert and ill appearing acutely Nutritional Appearance: well nourished and obese morbidly obese Orientation/consciousness: patient oriented x3 Limitations: no limitations HENMT: Head: normal to inspection Ears: external ears normal Eyes: Conjunctivae: conjunctivae normal Cornea: corneas normal Pupils: Equal, round and reactive pupils present EOM: EOMs intact bilaterally Neck: Neck: normal visual inspection Resp: Effort & Inspection: normal respiratory effort Auscultation: clear to auscultation bilaterally Cardio: Rate: regular rate Rhythm: regular rhythm GI: GI Palp: Yes Soft to palpation and Yes Tenderness to palpation present (GI) (Mild sore generalized) Back/Spine/Pelvis: Cervical Spine: cervical ROM normal Thoracic/Lumbar Spine: thoraco-lumbar ROM normal Skin: General skin exam: normal color Rashes: no rashes Neuro: General: patient oriented x3, moves all extremities, no focal motor deficits and CN's II-XI intact bilaterally Speech: normal speech Gait exa
[2022-02-16] MEDS: LACTATED RINGERS 1,000 ML 999 ML IV CONT ×2 (20:46→21:49)
[2022-02-16 20:50] LABS: Basophils Absolute Auto 0.03 K/mm3 (0.00-0.10); Basophils Percent Auto 0.2 % (0.0-1.0); Eosinophils Absolute Auto 0.04 K/mm3 (0.02-0.50); Eosinophils Percent Auto 0.3 % (1.0-6.0); Hematocrit 38.4 % (35.0-49.0); Hemoglobin 12.8 g/dL (12.0-15.0); Immature Granulocyte Absolute 0.17 K/mm3 (0.00-0.00); Immature Granulocyte Percent A 1.3 % (0.0-0.0); Lymphocytes Absolute Auto 1.29 K/mm3 (1.10-4.50); Lymphocytes Percent Auto 9.7 % (18.0-42.0); Mean Corpuscular HGB Conc 33.3 g/dL (32.0-36.0); Mean Corpuscular Hemoglobin 31.4 pg (27.0-31.0); Mean Corpuscular Volume 94.3 fL (78.0-102.0); Mean Platelet Volume 11.1 fl (9.2-11.8); Monocytes Absolute Auto 1.06 K/mm3 (0.10-0.90); Neutrophils Absolute Auto 10.7 K/mm3 (1.7-7.2); Neutrophils Percent Auto 80.5 % (50.0-70.0); Platelet Count Result 206 K/mm3 (150-420); Red Blood Count 4.07 M/mm3 (4.20-5.40); Red Cell Distribution Width 13.6 % (11.6-14.4); White Blood Count 13.2 K/mm3 (4.8-10.8)
--- NOTE | 2022-02-16 21:09 | PC.NURSE ---
PT DENIES SI AT THIS TIME. PT WAS SEEN AND TREATED FOR SUICIDAL ATTEMPT LAST MONTH. PT HAS FOLLOW UP IN PLACE AND ACTIVE WITH THERAPY. NO ORDERS FOR SECLUSION, SI PRECAUTIONS. AT BEDSIDE. PT IS CALM, COOPERATIVE. ERP IS AWARE OF HX.
[2022-02-16 21:10] LABS: Lactic Acid Reflex 2.8 mmol/L (0.4-2.0)
[2022-02-16 21:13] LABS: Alanine Aminotransferase 46 U/L (14-59); Albumin Level 2.7 g/dL (3.4-5.0); Alkaline Phosphatase 146 U/L (46-116); Anion Gap 13 mmol/L (8-16); Aspartate Amino Transferase 23 U/L (15-37); Bilirubin,Total 0.7 mg/dL (0.00-1.00); Blood Urea Nitrogen 25 mg/dL (7-18); Calcium 8.6 mg/dL (8.5-10.1); Carbon Dioxide 22 mmol/L (21-32); Chloride 99 mmol/L (98-108); Estimated CRCL calculation 31 ml/min; Estimated Glomerular Filt Rate 31; Glucose 158 mg/dL (70-99); Magnesium 1.3 mg/dL (1.8-2.4); Osmolality Calculated 285 mOsm/kg (285-295); Potassium 3.3 mmol/L (3.5-5.1); Sodium 134 mmol/L (136-145); Total Protein 6.7 g/dL (6.4-8.2)
--- NOTE | 2022-02-16 21:21 | PC.NURSE ---
PT READJUSTED ON STRETCHER AT THIS TIME. NAD NOTED. AT BEDSIDE. IVF INFUSING WITHOUT DIFFICULTY. PT IS AWAITING RESULTS. WILL CONTINUE TO MONITOR.
[2022-02-16 21:26] LABS: SARS-CoV-2 RNA PCR Negative (Negative)
--- NOTE | 2022-02-16 21:53 | PC.NURSE ---
PT TO CT AT THIS TIME. IVF INFUSING ORDERED WITHOUT DIFFICULTY. PT REPORTS SHE IS FEELING A LITTLE BETTER POST FIRST BAG OF IVF. NAD NOTED. PT AND WERE WATCHING TV WITHOUT DISTRESS. WILL CONTINUE TO MONITOR.
[2022-02-16 22:37] LABS: Appearance Urine Clear (Clear); Bilirubin Urine Negative (Negative); Color Urine Light Yellow (Yellow); Glucose Urine UA Negative (Negative); Ketones Urine Negative (Negative); Leukocyte Esterase Ur Negative LEU/UL (Negative); Nitrate Urine Negative (Negative); Protein Urine Negative (Negative); Urobilinogen Urine 0.2 mg/dL (0.2-1.0)
[2022-02-16 22:43] LABS: Add Urine Microscopic? YES; Bacteria Urine Trace /hpf; Blood Urine Trace-Intact (Negative); RBC Urine 0-2 /hpf (0-2); Squamous Epithelial Cell Urine Rare /hpf (Few); WBC Urine 0-3 /hpf (0-3)
[2022-02-16] MEDS: metroNIDAZOLE 250 MG TABLET 500 MG PO (23:05)
== END 2022-02-16 23:15 | disposition home or self-care (01) ==
PROVIDERS: Emergency Provider Emergency Medicine; PCP Nurse Practitioner
DX: K52.9 Noninfective gastroenteritis and colitis, unspecified (principal); Z20.822 Contact with and (suspected) exposure to COVID-19
CPT/HCPCS: 36415; 71046; 74177; 80053; 81001; 83605; 83735; 85025; 86140; 87040; 96360; 96361; 99284; A9270; C9803; J7120; Q9967; U0003; U0005

== ENCOUNTER 2022-03-13 07:43 | Outpatient (CLI) | payer BC, SELFPAY ==
[2022-03-13 08:00] LABS: Hemoglobin 12.1 g/dL (12.0-15.0); Mean Corpuscular HGB Conc 31.8 g/dL (32.0-36.0); Mean Corpuscular Hemoglobin 31.2 pg (27.0-31.0); Mean Corpuscular Volume 97.9 fL (78.0-102.0); Mean Platelet Volume 10.1 fl (9.2-11.8); Platelet Count Result 447 K/mm3 (150-420); Red Blood Count 3.88 M/mm3 (4.20-5.40); Red Cell Distribution Width 14.9 % (11.6-14.4)
[2022-03-13 08:40] LABS: Band Neutrophils Percent 0 % (0-6); Eosinophils Absolute Manual 1.45 K/mm3 (0.02-0.5); Eosinophils Percent Manual 6 % (1-6); Lymphocytes Absolute Manual 7.01 K/mm3 (1.1-4.5); Lymphocytes Percent Manual 29 % (18-44); Metamyelocytes Percent 1 %; Monocytes Absolute Manual 2.66 K/mm3 (0.1-0.90); Monocytes Percent Manual 11 % (3-9); Myelocytes Percent 1 %; Neutrophils Absolute Manual 12.58 K/mm3 (1.7-7.2); Neutrophils Percent Manual 52 % (46-73); Total Cells Counted 100; White Blood Count 24.2 K/mm3 (4.8-10.8)
[2022-03-13 08:41] LABS: Schistocytes None Seen (NORMAL)
== END 2022-03-13 07:44 | disposition home or self-care (01) ==
LOC: CHSLAB 07:46
PROVIDERS: PCP Nurse Practitioner; Visit Provider Nurse Practitioner
DX: D72.829 Elevated white blood cell count, unspecified (principal)
CPT/HCPCS: 36415; 85025

== ENCOUNTER 2022-03-20 07:33 | Outpatient (CLI) | payer BC, SELFPAY ==
[2022-03-20 07:48] LABS: Basophils Absolute Auto 0.15 K/mm3 (0.00-0.10); Basophils Percent Auto 1.1 % (0.0-1.0); Eosinophils Absolute Auto 0.76 K/mm3 (0.02-0.50); Eosinophils Percent Auto 5.8 % (1.0-6.0); Hematocrit 39.9 % (35.0-49.0); Hemoglobin 12.5 g/dL (12.0-15.0); Immature Granulocyte Absolute 0.09 K/mm3 (0.00-0.00); Immature Granulocyte Percent A 0.7 % (0.0-0.0); Lymphocytes Absolute Auto 4.03 K/mm3 (1.10-4.50); Lymphocytes Percent Auto 30.7 % (18.0-42.0); Mean Corpuscular HGB Conc 31.3 g/dL (32.0-36.0); Mean Corpuscular Hemoglobin 30.4 pg (27.0-31.0); Mean Corpuscular Volume 97.1 fL (78.0-102.0); Mean Platelet Volume 11.2 fl (9.2-11.8); Monocytes Percent Auto 9.9 % (2.0-11.0); Neutrophils Absolute Auto 6.8 K/mm3 (1.7-7.2); Neutrophils Percent Auto 51.8 % (50.0-70.0); Platelet Count Result 228 K/mm3 (150-420); Red Blood Count 4.11 M/mm3 (4.20-5.40); Red Cell Distribution Width 14.1 % (11.6-14.4); White Blood Count 13.1 K/mm3 (4.8-10.8)
== END 2022-03-20 07:34 | disposition home or self-care (01) ==
LOC: CHSLAB 07:35
PROVIDERS: PCP Nurse Practitioner; Visit Provider Nurse Practitioner
DX: D72.829 Elevated white blood cell count, unspecified (principal)
CPT/HCPCS: 36415; 85025

== ENCOUNTER 2022-03-22 07:55 | Outpatient (CLI) | payer BC, SELFPAY | END 2022-03-22 07:56 | disposition home or self-care (01) | LOC: CHSLAB 07:56 | PROVIDERS: PCP Nurse Practitioner; Visit Provider Nurse Practitioner | DX: R19.7 Diarrhea, unspecified (principal); D72.829 Elevated white blood cell count, unspecified | CPT/HCPCS: 87045; 87324; 87427 ==

== ENCOUNTER 2024-01-05 14:42 | Emergency (ER) | payer BC, SELFPAY ==
[2024-01-05 14:42] VITALS: BP 141/62; PULSE 103; RESP 17; TEMP 36.8; O2SAT 95
--- NOTE | 2024-01-05 14:52 | ED.PSYCH ---
HPI - Psych General Chief Complaint: Unspecified Stated Complaint: mental helath eval Source: patient Mode of arrival: ambulatory Limitations: no limitations History of Present Illness HPI Narrative: Patient is a 58-year-old female here for concerns with her sadness secondary to multiple home stressors. Patient is not suicidal or homicidal. She was brought by her to get evaluated. She would like to speak to a counselor. she is upset with her for not working many years and she is also upset that she does not get to spend enough time with the grand children. Patient is a full-time employee. MD complaint: feels depressed Onset (ago): month(s) ( Many months) Duration: constant History of same: Yes Relieving factors: none Exacerbating factors: none Associated psychiatric symptoms: depression Associated symptoms: denies other symptoms Treatments prior to arrival: other ( Patient is on multiple psychiatric chronic medications) Details of plan: no suicide ideation or plan Related Data Home Medications Medication Instructions Recorded Confirmed albuterol sulfate 90 mcg/actuation 2 puff inhalation Q4-5H PRN 04/14/21 01/05/24 aerosol inhaler Shortness Of Breath bupropion HCl 300 mg 24 hr tablet, 300 mg PO DAILY 04/14/21 01/05/24 extended release cyclobenzaprine 10 mg tablet 10 mg PO TID PRN Muscle Spasm 04/14/21 01/05/24 dulaglutide 1.5 mg/0.5 mL 1.5 mg subcut WEEKLY 04/14/21 01/05/24 subcutaneous pen injector (Trulicity) fluoxetine 20 mg capsule 60 mg PO DAILY 04/14/21 01/05/24 furosemide 20 mg tablet 20 mg PO DAILY 04/14/21 01/05/24 gabapentin 100 mg capsule 100 mg PO TID 04/14/21 01/05/24 insulin aspart U-100 100 unit/mL 1 sliding scale dose subcut 04/14/21 01/05/24 subcutaneous solution (Novolog USEASDIRECTD U-100 Insulin aspart) lisinopril 30 mg tablet 30 mg PO DAILY 04/14/21 01/05/24 melatonin 10 mg tablet 10 mg PO HS 04/14/21 01/05/24 metformin 500 mg tablet,extended 500 mg PO BID 04/14/21 01/05/24 release 24 hr metoprolol succinate 200 mg 200 mg PO DAILY 04/14/21 01/05/24 tablet,extended release 24 hr omeprazole 20 mg capsule,delayed 20 mg PO BID 04/14/21 01/05/24 release rosuvastatin 20 mg tablet 20 mg PO HS 04/14/21 01/05/24 clonazepam 1 mg tablet 1 mg PO PRN PRN Anxiety 02/16/22 01/05/24 Allergies Allergy/AdvReac Type Severity Reaction Status Date / Time Sulfa (Sulfonamide Allergy Unknown Rash Verified 01/05/24 15:00 Antibiotics) Latex, Natural Rubber Allergy Swelling Verified 01/05/24 15:00 of Lip/Tongue/Throat Review of Systems Review of Systems: All systems reviewed & are unremarkable except as noted in HPI and below Constitutional: Constitutional: Reports no additional constitutional complaints Eyes: Eyes: Reports no additional eye complaints ENT: Reports system reviewed and no additional complaints, except as documented Cardiovascular: Cardiovascular: Reports no additional cardiovascular complaints Respiratory: Respiratory: Reports no additional respiratory complaints Gastrointestinal: Gastrointestinal: Reports no additional gastrointestinal complaints Genitourinary: Genitourinary: Reports no additional female genitourinary complaints Musculoskeletal: Musculoskeletal: Reports no additional musculoskeletal complaints Integumentary/Breasts: Skin/Breast: Reports system reviewed and no additional complaints, except as docu Neurologic: Reports system reviewed and no additional complaints, except as documented Psychiatric: Psychiatric: Reports no additional psychiatric complaints Endocrine: Endocrine: Reports no additional endocrine complaints Hematologic/Lymphatic: Hematologic/Lymphatic: Reports no additional hematologic/lymphatic complaints Allergic/Immunologic: Allergic/Immunologic: Reports no additional allergic/immunologic complaints PMFSH Past Medical History Medical History CVA
--- NOTE | 2024-01-05 15:08 | PC.NURSE ---
ERP bad beside for initial assessment.
--- NOTE | 2024-01-05 15:32 | PC.NURSE ---
Patient on the phone with narinder perez in room 4 to set up counseling and therapy. They deny any need for labs or testing prior to speaking with patient. ERP made aware.
[2024-01-05 16:05] VITALS: BP 133/71; PULSE 101; RESP 17; TEMP 36.8; O2SAT 94
== END 2024-01-05 16:05 | disposition home or self-care (01) ==
PROVIDERS: Emergency Provider Emergency Medicine; PCP Nurse Practitioner
DX: F43.0 Acute stress reaction (principal); E11.9 Type 2 diabetes mellitus without complications; E78.5 Hyperlipidemia, unspecified; I10 Essential (primary) hypertension; Z79.899 Other long term (current) drug therapy; Z79.4 Long term (current) use of insulin
CPT/HCPCS: 99284

== ENCOUNTER 2024-10-18 13:46 | Observation (INO) | payer BC, SELFPAY ==
[2024-10-18] VITALS (45 sets, daily range): BP systolic 123–182; BP diastolic 52–98; PULSE 66–108; RESP 10–28; TEMP 35.9–36.9; O2SAT 90–100; BMI 33.4
--- NOTE | ~2024-10-18 | CT_ITS ---
History: Altered mental status PROCEDURE: CT head without contrast. COMPARISON: 04/14/2021 TECHNIQUE: Axial imaging of the head performed from the skull base to the vertex without IV contrast. Sagittal a nd coronal reformations obtained. DLP: 605 mGy-cm FINDINGS: The ventricles are normal in size, shape and position. There is no mass, mass effect or midline shift. Encephalomalacia and gliosis are identified within the distribution of the left middle cerebral arter y, suggesting prior cerebral infarction. There is no abnormal extra-axial fluid collection or acute/subacute intracranial hemorrhage. Visualized paranasal sinuses are clear. The mastoid air cells are well aerated. No acute displaced fractures within the overlying cranium. Impression: No acute intracranial hemorrhage or suspicious mass effect. Findings consistent with prior cerebral infarction within the left middle cerebral artery, as detaile d above. Reviewed, dictated and finalized at location A. Impression: No acute intracranial hemorrhage or suspicious mass effect. Findings consistent with prior cerebral infarction within the left middle cereb ral artery, as detailed above.
--- NOTE | ~2024-10-18 | CT_ITS ---
CLINICAL INDICATION: Abdominal pain - Central umbilical pain of approximately 2 days to 2 weeks dura tion COMPARISON: 02/16/2022. TECHNIQUE: Multiple contiguous axial images of the abdomen and pelvis were performed following the ad ministration of with 100 mL Omnipaque-350 intravenous contrast The dose-length product (DLP) was 615.06 mGy-cm. Automated exposure control and iterative reconstruction technique were employed. FINDINGS/OBSERVATIONS: Visualized lower thorax: The bilateral lung bases are clear. The heart is of normal size, without pericardial effusion. Small hiatal hernia is present, with thickening of the distal esophagus. Liver: The liver demonstrates homogeneous enhancement and is not enlarged. Gallbladder and biliary system: The gallbladder is surgically absent. Pancreas: The pancreas enhances homogeneously without ductal dilatation. Spleen: The spleen enhances homogeneously and is not enlarged. Kidneys: The bilateral kidneys enhance symmetrically without hydronephrosis or renal calculi. Adrenal glands: Unremarkable. Gastrointestinal tract: Significant mural thickening and surrounding inflammatory changes identified within the distal transv erse and proximal descending colon. Appendix: The appendix is not definitively visualized. However, no pericecal inflammatory change is identified suggest the presence of acute appendicitis. Vasculature: Unremarkable. Lymph nodes: No pathologically enlarged or morphologically suspicious lymph nodes within the retroperitoneum or at the root of the mesentery. Pelvic structures: The bladder is minimally distended, and otherwise unremarkable. The uterus is retroverted and retroflexed, with a small amount of surrounding free fluid, likely phys iologic. Body wall and musculoskeletal: Small fat-containing umbilical hernia. No significant degenerative disease within the lower thoracic or lumbosacral spine. IMPRESSION: Findings within the distal transverse and proximal descending colon for which an enteritis is suspect ed. Follow-up to resolution is recommended as a malignancy may have a similar appearance. Reviewed, dictated and finalized at location A. IMPRESSION: Findings within the distal transverse and proximal descending colon for which a n enteritis is suspected. Follow-up to resolution is recommended as a malignancy may have a similar appea harleen.
--- OUTSIDE RECORDS SUMMARY | 2024-10-18 13:49 | XMS_ITS | Clinical Summary ---
Author Organization [facility] Address [address] [place] [address] Care Team Providers Care Rn Call Center Name Role Phone Alethea Roberto APRN-MORGAN Primary Care Provider [phone] Source Comments [facility],non-owned Affiliates and Associated Physician Practices is amultiple site organization consisting of ambulatory clinics and hospital sitesin [place], [place], [place] and [place]. This disclosure is being madepursuant to the Care Everywhere program and may not contain all information available regarding this patient. Last updated 18.[facility] Allergies Active Allergy Reactions Criticality Noted Date Comments Latex Other 04/16/2021 Throat swelling Sulfa Drugs Rash Medium 04/16/2021 Medications * Be aware that medications may not be up to date on this document. Alwaysverify current medications with the patient. Continuous Blood Gluc Sensor (FREESTYLE VIRGEN 14 DAY SENSOR) MISC Active Melatonin 10 MG Take 2 tablets by mouth at bedtime Active omeprazole (PRILOSEC) 20 MG capsule Take 20 mg by mouth 2 times daily Active Continuous Blood Gluc Rn Teacher (FREESTYLE VIRGEN 14 DAY READER) ROHIT Active lisinopril (PRINIVIL; ZESTRIL) 30 MG tablet Take 30 mg by mouth once daily Active furosemide (LASIX) 20 MG tablet Take 20 mg by mouth once daily Active rosuvastatin (CRESTOR) 20 MG tablet Take 20 mg by mouth at bedtime Active FLUoxetine (PROZAC) 20 MG capsule Take 60 mg by mouth once daily Active gabapentin (NEURONTIN) 100 MG capsule Take 100 mg by mouth 3 times daily Active BUPROPION HCL ER, XL, PO Take 300 mg by mouth once daily Active Calcium Carbonate-Vit D-Min (CALCIUM 1200) 1434-7011 MG-UNIT CHEW Take 1 tablet by mouth once daily Active cyclobenzaprin e (FLEXERIL) 10 MG tablet Take 10 mg by mouth 3 times daily as needed for Muscle Spasms Active aspirin (ASPIRIN) 81 MG chew tablet Take 1 (one) tablet by mouth once daily 100 tablet 3 Active Insulin Aspart (NOVOLOG SC) Via insulin pump Active dulaglutide (TRULICITY) 1.5 MG/0.5ML injection Inject 3 mg subcutaneously every 7 days Active amLODIPine (NORVASC) 10 MG tablet Take 10 mg by mouth once daily Active CLONAZEPAM PO Take 0.5 mg by mouth 2 times daily Active busPIRone (BUSPAR) 15 MG tablet Take 7.5 mg by mouth 2 times daily Active Metoprolol Succinate 50 MG CS24 Take by mouth at bedtime Active Active Problems Problem Noted Date Diagnosed Date Aphasia 04/16/2021 Type 2 diabetes, controlled, with neuropathy Hypertension 04/16/2021 Acute ischemic stroke 04/14/2021 Immunizations Immunization Administration Dates Next Due INFLUENZA VACCINE, QUADR. (F LUZONE; FLULAVAL; FLUARIX; AFLURIA QUADRIVALENT; 6MO+), 0.5 ML (IIV4) 04/17/2021 Social History Tobacco Use Types Packs/Day Years Used Date Smoking Tobacco: Former Cigarettes Q uit: 06/09/2019 Smokeless Tobacco: Never Tobacco Cessation:Counseling Given: No AUDIT-C Answer Date Recorded Q1: How often do you have a drink containing alc ohol? Never 04/15/2021 Q2: How many drinks containi ng alcohol do you have on a typical day when you are drinking? 1 or 2 04/15/2021 Q3: How often do you have six or more drinks on one occasion? Never 04/15/2021 PHQ-2 Answer Date Recorded PHQ2 TOTAL SCORE 0 04/16/2021 Comments Unknown Sex and Gender Information Value Date Recorded Sex Assigned at Not on file Legal Sex Female 8:31 AM WET CHEMISTRY ANALYST Gender Identity Not on file Sexual Orientation Not on file Last Filed Vital Signs Vital Sign Reading Time Taken Comments Blood Pressure 101/66 11/22/2021 9:51 AM CDT Pulse 89 11/22/2021 9:51 AM CDT Temperature 36.6 C (97.8 F) 04/18/2021 12:58 PM WET CHEMISTRY ANALYST Respiratory Rate 12 11/22/2021 9:51 AM CDT Oxygen Saturation 95% 04/18/2021 3:02 PM WET CHEMISTRY ANALYST Inhaled Oxygen Concentration - - Weight 80.6 kg (177 lb 9.6 oz) 11/22/2021 9:51 A M CDT Height 154.9 cm (5' 1 ) 11/22/2021 9:51 AM CDT Body Mass Index 33.56 11/22/2021 9:51 AM CDT Plan of Treatment Upcoming Encounters Date Type Department Care Team (Late st Contact Info) Description 10/22/2024 1:00 AM CDT Clinical Support [facility] - Cardiology [address] [place] [phone] 11/11/2024 10:00 AM CDT Office Visit [facility] - Neurology [address] [place] [phone] Eleni Gtz PA-C [facility] [facility] [address] [place] [phone] 11/26/2024 1:00 AM CDT Clinical Support [facility] - Cardiology [address] [place] [phone] 12/31/2024 1:00 AM CDT Clinical Support [facility] - Cardiology [address] [place] [phone] 02/04/2025 1:00 AM CDT Clinical Support [facility] - Cardiology [address] [place] [phone] Health Maintenance Due Date Last Done Comments COLOGUARD (AGES 45-75) - COLON CA SCREENING 1963 COLON MONITORING 1963 COLONOSCOPY - COLON CA SCREENING 1963 CT COLONOGRAPHY - COLON CA SCREENING 1963 Colorectal Cancer Screening 1963 FIT - COLON CA SCREENING 1963 FLEX SIG - COLON CA SCREENING 1963 PAP SMEAR 1963 HIV SCREENING 1978 DTAP/TDAP/TD VACCINES (1 - Tdap) 1982 PNEUMOCOCCAL VACCINE 50+ (1 of 2 - PCV) 1982 ZOSTER VACCINE (1 of 2) 2013 DIABETES RETINOPATHY SCREENING 04/16/2021 DIABETES-FOOT EXAM WITH MONOFILAMENT 04/16/2021 Respiratory Syncytial Virus (RSV) Vaccine Pt: or over 60 yrs (1 - Risk 60-74 years 1-dose series) 2023 COVID-19 VACCINE ( - season) 2024 DEPRESSION SCREENING 06/03/2024 DIABETES - URINE PROTEIN SCREENING 06/03/2024 06/28/2021 DIABETES-HGB A1C 10/09/2024 04/11/2024, , 01/29/2023, Additional history exists INFLUENZA VACCINE (Season Ended) 2025 04/17/2021 MAMMOGRAM 03/22/2025 03/22/2023, 03/04, 12/21/2021 DIABETES-SERUM CREATININE 10/08/20252024, 10/08/2024, 10/02/2024, Additional history exists HEPATITIS C SCREENING Completed 08/17/2023 HEPATITIS B VACCINE Aged Out No longe r eligible based on patient's age to complete this topic HIB VACCINE Aged Out No longer eligi ble based on patient's age to complete this topic HPV VACCINE Aged Out No longer eligi ble based on patient's age to complete this topic MENINGOCOCCAL (Group B) VACCINE SHARED DECISION-MAKING Aged Out No longer eligible based on patient's age to complete this topic MENINGOCOCCAL GROUPS A/C/Y/W VACCINE Aged Out No longer eligible based on patient's age to complete this topic Medical Devices Implanted Type Area Mathematical Engineer Device Identifier Shelf Expiration Date Model / Serial / Lot Sys Crd Mntr Rvl Linq [employer] Ins - [id number] Implanted:Qty : 1 on 04/18/2021 by Maico De La Cruz MD at [facility] Loop Recorder Left: Chest Wall [employer] 01/14/2022 LINQSYS DISCONTINUED / [id number] / Procedures Procedure Name Priority Date/Time Associated Diagnosis Comments BASIC METABOLIC PANEL (CALCIUM TOTAL) Routine 04/18/2021 3:51 AM WET CHEMISTRY ANALYST HEMOGLOBIN A1C Add on 04/16/2021 9:35 AM WET CHEMISTRY ANALYST from Last 3 Months or Most Recently Relevant to Health Maintenance Results * (ABNORMAL) BASIC METABOLIC PANEL (CALCIUM TOTAL) (04/18/2021 3:51 AM WET CHEMISTRY ANALYST) BUN 7 7 - 26 mg/dL 04/18/2021 5:15 AM [facility] Creatinine 0.80 0.56 - 0.96 mg/dL 04/18/2021 5:15 AM [facility] Sodium 141 136 - 145 mmol/L 04/18/2021 5:15 AM [facility] Potassium 3.2(L) 3.5 - 4.5 mmol/L 04/18/2021 5:15 AM [facility] Chloride 105 98 - 107 mmol/L 04/18/2021 5:15 AM [facility] CO2 21(L) 22 - 29 mmol/L 04/18/2021 5:15 AM [facility] Glucose 185(H) 70 - 115 mg/dL 04/18/2021 5:15 AM [facility] Calcium 9.7 8.4 - 10.2 mg/dL 04/18/2021 5:15 AM [facility] Anion Gap 18 8 - 18 04/18/2021 5:15 AM [facility] BUN/Creatinine Ratio 9 7 - 23 04/18/2021 5:15 AM [facility] Osmolality Calculated 295 270 - 300 mOsm/kg 04/18/2021 5:15 AM [facility] eGFR by CKD-EPI 81(L) >=90 mL/min/1.7 3 m2 04/18/2021 5:15 AM [facility] Blood BLOOD SPECIMEN / Unknown Lab Venipuncture / Unknown 04/18/2021 3:51 AM WET CHEMISTRY ANALYST 04/18/2021 4:52 AM WET CHEMISTRY ANALYST us Aaron Hauser MD LAB - CHEMISTRY ORDERABLES Final Result [facility] [address] [place] [address], [facility] [phone] * (ABNORMAL) HEMOGLOBIN A1C (04/16/2021 9:35 AM [facility]) Hemoglobin A1c 7.9(H) 4.4 - 6.3 % 04/16/2021 11:10 AM [facility] Estimated Average Glucose 180 mg/dL 04/16/2021 11:10 AM [facility] Comment: HbA1c Interpretation: Treatment target values recommended by ADA and other clinical organizations should be used to evaluate metabolic control in patients. Treatment Target Values: Normal : < 5.7% Pre-diabetes: 5.7-6.4% Diabetes: Equal to or greater than 6.5% Reference: [place] Diabetes Association Standards of Care in Diabetes -2014 In patients 70 years and older consider HbA1c target range of 7.0-7.5% Reference: Diabetes Mellitus in Older People: Position Statement on behalf of the International Association of Gerontology and Geriatrics (IAGG), the Diabetes Working Alliance Party for Older People (EDWPOP), and the International Task Force of Experts in Diabetes. Akash Saavedra, et al. J [place] [employer] Association. 2012 Test results diagnostic of diabetes should be repeated for confirmation. The Sebia Capillary 2 assay for the measurement of HbA1c is a National Glycohemoglobin Standardization Program (NGSP)certified method. Blood BLOOD SPECIMEN / Unknown Venipuncture / Unknown 04/16/2021 9:35 AM WET CHEMISTRY ANALYST 04/16/2021 9:40 AM [facility] Aaron Hauser MD LAB - CHEMISTRY ORDERABLES Final Result Performing Organization Address City/[facility]/ZIP Co de Phone Number [facility] [address] [place] [address], [facility] [phone] from Last 3 Months or Most Recently Relevant to Health Maintenance [place] [address] [place] [address] Advance Directives * Full Code (Latest Code Status on File) Date Activated Date Inactivated Comments 04/16/2021 12:01 AM 04/18/2021 5:09 PM Care Teams Rn Call Center Relationship Specialty Start Date End Date Alethea Roberto APRN-[employer] [place] [phone] PCP - General 08/25/21
--- OUTSIDE RECORDS SUMMARY | 2024-10-18 13:49 | XMS_ITS | Clinical Summary ---
Author Organization [facility] Address [address] [place] [address] Care Team Providers Care Manager Android Name Role Phone Pardeep Alethea OROZCO Primary Care Provider [phone] Allergies Active Allergy Reactions Criticality Noted Date Comments Latex Other (See comments),Unknown Low 03/16/2019 Throat swelling Sulfa (Sulfonamide Antibiotics) Anaphylaxis High 12/07/2017 Medications ondansetron (ZOFRAN) 4 mg tablet Take 1 tablet (4 mg total) by mouth every 8 (eight) hours as needed for nausea or vomiting. 15 tablet 12/07/2017 Active aspirin 81 mg chewable tablet Take 1 tablet (81 mg total) by mouth daily 04/19/2021 Active buPROPion XL (WELLBUTRIN XL) 300 mg 24 hr tablet Take 1 tablet (300 mg total) by mouth daily 02/21/2021 Active clonazePAM (KlonoPIN) 0.5 mg tablet 05/10/2021 Active cyclobenzaprine (FLEXERIL) 10 mg tablet Take 1 tablet (10 mg total) by mouth 3 (three) times a day as needed 03/12/2019 Active FLUoxetine (PROzac) 20 mg capsule Take 3 capsules (60 mg total) by mouth daily 04/22/2021 Active furosemide (LASIX) 20 mg tablet Take 1 tablet (20 mg total) by mouth daily 02/18/2017 Active gabapentin (NEURONTIN) 100 mg capsule Take 1 capsule (100 mg total) by mouth 3 (three) times a day 02/18/2017 Active hydrOXYzine (ATARAX) 50 mg tablet Take 1 tablet (50 mg total) by mouth every 6 (six) hours as needed 09/19/2020 Active insulin aspart (NovoLOG) 100 unit/mL vial for injection U UTD PER PUMP 02/18/2017 Active lisinopriL (PRINIVIL,ZESTR IL) 30 mg tablet Take 1 tablet (30 mg total) by mouth daily 05/04/2021 Active omeprazole (PriLOSEC) 20 mg capsule Take 1 capsule (20 mg total) by mouth 2 (two) times a day 11/16/2020 Active rosuvastatin (CRESTOR) 20 mg tablet Take 1 tablet (20 mg total) by mouth nightly 02/18/2017 Active metoprolol XL (TOPROL-XL) 50 mg extended release tablet Take 1 tablet (50 mg total) by mouth daily 06/14/2021 Active busPIRone (BUSPAR) 15 mg tablet Take 0.5 tablets (7.5 mg total) by mouth 2 (two) times a day 06/14/2021 Active amLODIPine (NORVASC) 10 mg tablet Take 1 tablet (10 mg total) by mouth daily 10/05/2021 Active dulaglutide (Trulicity) 3 mg/0.5 mL pen injectorIndicat ions:type 2 diabetes mellitus Inject 0.5 mL (3 mg total) under the skin every 7 days [id number] 2 mL 5 10/13/2021 Active albuterol HFA (PROVENTIL HFA,VENTOLIN HFA,PROAIR HFA) 90 mcg/actuation inhaler 2 puffs every 4 (four) hours as needed 04/07/2023 Active Advair Diskus 500-50 mcg/dose diskus inhaler Inhale 1 puff 2 (two) times a day 03/15/2023 Active Active Problems Problem Noted Date Diagnosed Date Medtronic 780G Insulin pump in place 05/11/2021 Assessment & Plan (05/01/2023 9:38 AM MANAGER SERVICING): This is a chronic condition which is at goal. Download reviewed. 04/18/23 to 05/01/23 Type of insulin pump- Medtronics 780G with guardian 4 sensor. auto mode-90% Pump settings : Basal - 2 units IC 7 ISF 25 Active insulin time 4hrs. TARGET GLUCOSE 100-110 Avg daily carbs 120 +or- 64gm Avg Total daily insulin 95 units Avg daily basal 67 units (71%) Avg daily bolus 28 units (29%) Interpretation- at goal. In target range 86% of the time, 14% hyperglycemia, 0 hypoglycemia. Average blood sugar 204-+/-51 mg/dL Assessment & Plan (01/29/2023 12:45 PM CDT): This is a chronic condition which is improving, but not at goal. Download reviewed. Type of insulin pump- Medtronics 780G with guardian 4 sensor. Switch to auto mode Pump settings : Basal - 2 units IC 7 ISF 25 Active insulin time 4hrs. TARGET GLUCOSE 100-110 Avg daily carbs 120 +or- 64gm Avg Total daily insulin 85 units Avg daily basal 60 units (70%) Avg daily bolus 26 units (30%) Interpretation- improving A1c. Switched to medtronics 780g insulin pump with guardian 4 sensor. Assessment & Plan (12/14/2021 5:44 PM CDT): This is a chronic condition which is stable, controlled, uncontrolled with hyperglycemia, improving, but not at goal. Download reviewed. Type of insulin pump- Medtronics 630G Pump settings : Basal increased to 2.5 units IC 7 ISF 25 Active insulin time 4hrs. TARGET GLUCOSE 100-110 Avg daily carbs 54 +or- 38 Avg Total daily insulin 60 units Avg daily basal 47 units (79%) Avg daily bolus 13 units (21%) Interpretation- Worsening A1c. Increased basal insulin to 2.5 units/hr. Assessment & Plan (10/13/2021 9:40 AM CDT): This is a chronic condition which is stable, controlled, uncontrolled with hyperglycemia, improving, but not at goal. Download reviewed. Type of insulin pump- Medtronics 630G unable to download due to technical difficulties Pump settings : Basal 2units IC 7 ISF 25 Active insulin time 4hrs. TARGET GLUCOSE 100-110 Avg daily carbs 59 Avg Total daily insulin 64 units Avg daily basal 47 units (74%) Avg daily bolus 17 units (26%) Interpretation- Will continue current setting since patient had a recent stroke. 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 No changes made to insulin pump. Assessment & Plan (06/28/2021 2:03 PM MANAGER SERVICING): This is a chronic condition which is stable, controlled, uncontrolled with hyperglycemia, improving, but not at goal. Download reviewed. Type of insulin pump- Medtronics 630G Pump settings : Basal 2units IC 7 ISF 25 Active insulin time 4hrs. TARGET GLUCOSE 100-110 Avg BG 217 +or -55 Avg daily carbs 218 +or -104 Avg Total daily insulin 89.1 Avg daily basal 47.7 (54%) Avg daily bolus 41.4 (46%) Interpretation- Will continue current setting since patient had a recent stroke. Is returning to work. Activity will increase. No changes made to insulin pump. Assessment & Plan (05/11/2021 1:59 PM MANAGER SERVICING): This is a chronic condition which is stable, controlled, uncontrolled with hyperglycemia, improving, but not at goal. Download reviewed. Type of insulin pump- Medtronics 630G Pump settings : Basal 2units IC 7 ISF 25 Active insulin time 4hrs. TARGET GLUCOSE 100-110 Avg BG 239 +or - 78 BG readings 107/7.6/day Avg daily carbs 432 +or -213 Cab/bolus insulin 5.5 Avg Total daily insulin 128.8 +or- 32.5 Avg daily basal 47.3 (37%) Avg daily bolus 81.5 (63%) Interpretation- Will continue current setting since patient had a recent stroke. Will follow up in 6 weeks for further evaluation. Mixed hyperlipidemia 02/18/2017 Assessment & Plan (05/01/2023 9:38 AM MANAGER SERVICING): This is a chronic condition which is at goal of LDL less than 70 Continue rosuvastatin Encouraged to eat healthy, include fresh fruits and vegetables daily and avoid eating fried foods more than once per week. Encouraged to take medications as prescribed. Assessment & Plan (01/29/2023 12:44 PM CDT): This is a chronic condition which is at goal of LDL less than 70 Continue rosuvastatin Encouraged to eat healthy, include fresh fruits and vegetables daily and avoid eating fried foods more than once per week. Encouraged to take medications as prescribed. Assessment & Plan (12/14/2021 5:41 PM CDT): This is a chronic condition which is at goal. Goal is less than 70. Personally reviewed lipid panel. [id number] on crestor. Encouraged to eat healthy, include fresh fruits and vegetables daily and avoid eating fried foods more than once per week. Encouraged to take medications as prescribed. Assessment & Plan (10/13/2021 9:09 AM CDT): This is a chronic condition which is at goal. Goal is less than 70. Personally reviewed lipid panel. ldl-43 on crestor. Encouraged to eat healthy, include fresh fruits and vegetables daily and avoid eating fried foods more than once per week. Encouraged to take medications as prescribed. Assessment & Plan (06/28/2021 2:03 PM MANAGER SERVICING): This is a chronic condition which is at goal. Goal is less than 70. Personally reviewed lipid panel. ldl-43 on crestor. Encouraged to eat healthy, include fresh fruits and vegetables daily and avoid eating fried foods more than once per week. Encouraged to take medications as prescribed. Assessment & Plan (05/11/2021 1:12 PM MANAGER SERVICING): This is a chronic condition which is at goal. Goal is less than 70. Personally reviewed lipid panel. ldl-43 on crestor. Encouraged to eat healthy, include fresh fruits and vegetables daily and avoid eating fried foods more than once per week. Encouraged to take medications as prescribed. Type 2 diabetes mellitus wit h stage 3a chronic kidney disease, with long-term current use of insulin 02/18/2017 Assessment & Plan (05/01/2023 9:35 AM MANAGER SERVICING): This is a chronic condition which is at goal of less than 7%. Personally reviewed most recent A1c - Lab Results Component Value Date HGBA1C 6.5 05/01/2023 Personally reviewed POC blood sugar- at goal 80-180 Lab Results Component Value Date POCGLU 172 05/01/2023 Medication- continue Novolog- Medtronic 780G Basal 0000-2.0, carb ratio-7, sensitivity-25 target 100-110 Continue Trulicity 3 mg weekly Monitor blood sugar continuously with guardian 4 sensor. Encouraged annual eye exam. Monofilament foot exam completed. protective senses intact. Treated with gabapentin Personally reviewed CMP eGFR- 59 Kidney function-abnormal Urine microalbumin/creatinine ratio - at goal <30 treated with lisinopril, amlodipine, furosemide, metoprolol B/P today- at goal of <140/90. continue lisinopril, amlodipine, furosemide, metoprolol Personally reviewed lipid panel. at Goal of less than 70. Continue Crestor Assessment & Plan (01/29/2023 12:46 PM CDT): This is a chronic condition which is improving , not at goal of less than 7%. Personally reviewed most recent A1c - Lab Results Component Value Date HGBA1C 8.0 01/29/2023 Personally reviewed POC blood sugar- not at goal 80-180 Lab Results Component Value Date POCGLU 216 01/29/2023 Medication- Continue Novolog- Medtronic 780G Basal 0000-2.0, carb ratio-7, sensitivity-25 target 100-110 Continue Trulicity 3 mg weekly Monitor blood sugar guardian 4 continuously with sensor. Encouraged annual eye exam. last dilated eye exam was [facility] in [place] Monofilament foot exam completed. protective senses intact Treated with gabapentin Personally reviewed CMP eGFR- 59 Kidney function- abnormal Urine microalbumin/creatinine ratio - not at goal <30 treated with lisinopril Lasix amlodipine B/P today- not at goal of <140/90. continue lisinopril Lasix amlodipine Personally reviewed lipid panel. at Goal of less than 70. Continue rosuvastatin Assessment & Plan (12/14/2021 5:42 PM CDT): This is a chronic condition which is worsening and not at goal. Personally reviewed [id number] to 9% not at goal less than 7% Personally reviewed blood sugar -129, not at goal 80-180 Medication- Continue Medtronic insulin pump. continue Trulicity 3mg weekly Monitor blood sugar continuously with Freestyle jennie 2 Encouraged annual eye exam. Monofilament foot exam completed, protective senses decreased but intact.Treated with Gabapentin. Urine microalbumin/creatinine ratio -<30. currently on lisinopril , at goal <30 Personally reviewed labs: BUN-19, creatinine-1.05 GFR- 59 Kidney function- abnormal B/P today-116/60 , currently on lisinopril. At goal blood pressure is <140/90 and as close to 120/80 as possible. Personally reviewed LDL - 172, currently on crestor. Not at Goal of less than 70 history of macrovascular disease - CVA Assessment & Plan (10/13/2021 9:34 AM CDT): This is a chronic condition which is not at goal. Personally reviewed [id number] to 9% not at goal less than 7% Personally reviewed blood sugar -99, not at goal 80-180 Medication- Continue Medtronic insulin pump. Increase Trulicity 3mg weekly Monitor blood sugar continuously with Freestyle jennie 2 Encouraged annual eye exam. Monofilament foot exam completed, protective senses decreased but intact.Treated with Gabapentin. Urine microalbumin/creatinine ratio -31.2. currently on lisinopril , not at goal <30 Personally reviewed labs: BUN-15, creatinine-1.05 GFR- 58 Kidney function- abnormal B/P today-136/60 , currently on lisinopril. At goal blood pressure is <140/90 and as close to 120/80 as possible. Personally reviewed LDL - 43, currently on crestor. at Goal of less than 70 history of macrovascular disease - CVA Assessment & Plan (06/28/2021 2:00 PM MANAGER SERVICING): This is a chronic condition which is not at goal. Personally reviewed A1c-8.1% not at goal less than 7% Personally reviewed blood sugar -220, not at goal 80-180 Medication- Continue Medtronic insulin pump. Continue Trulicity 1.5mg weekly Monitor blood sugar continuously with Freestyle jennie 2 Encouraged annual eye exam. Monofilament foot exam completed, protective senses decreased but intact.Treated with Gabapentin. Urine microalbumin/creatinine ratio -65.7. currently on lisinopril , not at goal <30 Personally reviewed labs: BUN-15, creatinine-1.05 GFR- 58 Kidney function- abnormal B/P today-126/76 , currently on lisinopril. At goal blood pressure is <140/90 and as close to 120/80 as possible. Personally reviewed LDL - 43, currently on crestor. at Goal of less than 70 history of macrovascular disease - CVA Assessment & Plan (05/11/2021 1:09 PM MANAGER SERVICING): This is a chronic condition which is not at goal. Personally reviewed A1c-7.9% not at goal less than 7% Personally reviewed blood sugar -241, not at goal 80-180 Medication- Continue Medtronic insulin pump. Restart Trulicity 1.5mg weekly Monitor blood sugar continuously. Encouraged annual eye exam. Monofilament foot exam completed, protective senses decreased but intact.Treated with Gabapentin. Urine microalbumin/creatinine ratio - ordered currently on lisinopril , goal <30 Personally reviewed labs: BUN-7, creatinine-0.80 GFR- 81 Kidney function- normal B/P today-128/66 , currently on lisinopril. At goal blood pressure is <140/90 and as close to 120/80 as possible. Personally reviewed LDL - 43, currently on crestor. at Goal of less than 70 history of macrovascular disease - CVA Resolved Problems Problem Noted Date Diagnosed Date Resolved Date Encounter for long-term (cur rent) use of insulin 10/13/2021 01/29/2023 Assessment & Plan (12/14/2021 5:42 PM CDT): Worsening and Not at goal continue Medtronic insulin pump Assessment & Plan (10/13/2021 9:35 AM CDT): Not at goal continue Medtronic insulin pump Encounter for long-term (cur rent) use of other medications 10/13/2021 01/29/2023 Assessment & Plan (12/14/2021 5:42 PM CDT): Worsening and not at goal- Uncontrolled diabetes increase Trulicity to 3mg weekly denies nausea vomiting or abdominal pain with Trulicity 3 mg weekly Assessment & Plan (10/13/2021 9:37 AM CDT): Not at goal- Uncontrolled diabetes increase Trulicity to 3mg weekly denies nausea vomiting or abdominal pain with Trulicity 1.5 mg weekly Aphasia 04/16/2021 05/01/2023 Assessment & Plan (12/14/2021 5:40 PM CDT): Improving. Continue to see therapy as scheduled Assessment & Plan (10/13/2021 9:10 AM CDT): Improving. Continue to see therapy as scheduled Assessment & Plan (06/28/2021 2:04 PM MANAGER SERVICING): Improving. Continue to see therapy as scheduled Assessment & Plan (05/11/2021 1:10 PM MANAGER SERVICING): This is a chronic condition. Seeing speech therapy. Give extra time to allow her to get her words out Hypertension 02/18/2017 05/11/2021 Assessment & Plan (05/11/2021 1:11 PM MANAGER SERVICING): This is a chronic condition which is at goal Goal is <140/90 Personally reviewed labs. B/p - 128/66. Stable on lisinopril. Avoid caffeine, caffeine will raise blood pressure and excessive alcohol consumption. Monitor your weight and B/P. Encouraged to take medications as prescribed. Surgical History Surgery Date Site/Laterality Comments APPENDECTOMY Appendectomy - (Added by TW Conv) CHOLECYSTECTOMY Cholecystectomy - 1985 (Added by TW Conv) SECTION Section - 1990 (Added by [facility] Conv) Medical History Medical History Date Comments Diabetes mellitus type I (HCC) Encounter for long-term (current) use of other m edications 10/13/2021 Aphasia 04/16/2021 Family History Medical History Relation Name Comments Diabetes type II Father Type 2 Diab etes Mellitus - (Added by TW Conv) Heart disease Father Heart Disease - (Added by TW Conv) Hypertension Father Hypertension - (Added by TW Conv) Diabetes type II Mother Type 2 Diab etes Mellitus - (Added by TW Conv) Hypertension Mother Hypertension - (Added by TW Conv) Relation Name Status Comments Father Mother Social History Tobacco Use Types Packs/Day Years Used Date Smoking Tobacco: Former Cigarettes Q uit: 01/10/2020 Tobacco Cessation:Counseling Given: Not Answered Personal Safety Answer Date Recorded Getting School Help Needed Not on file 06/21 Comments No Sex and Gender Information Value Date Recorded Sex Assigned at Not on file Legal Sex Female 4:58 PM MANAGER SERVICING Gender Identity Not on file Sexual Orientation Not on file Obstetrics History Last Filed Vital Signs Vital Sign Reading Time Taken Comments Blood Pressure 134/74 05/01/2023 8:59 AM MANAGER SERVICING Pulse 68 12/07/2017 5:30 PM CDT Temperature 36.1 C (97 F) 12/07/2017 4:41 PM CDT Respiratory Rate 18 12/07/2017 5:30 PM CDT Oxygen Saturation 92% 12/07/2017 6:00 PM CDT Inhaled Oxygen Concentration - - Weight 82.2 kg (181 lb 3.2 oz) 05/01/2023 8:59 A M MANAGER SERVICING Height 154.9 cm (5' 1 ) 05/01/2023 8:59 AM MANAGER SERVICING Body Mass Index 34.24 05/01/2023 8:59 AM MANAGER SERVICING Plan of Treatment Health Maintenance Due Date Last Done Comments Breast Cancer Screening-Mammogram 1963 Cervical Cancer Screening 1963 Colon Cancer Screening-Colonoscopy 1963 Depression Screening 1963 Hepatitis C Screening 1963 DTaP/Tdap/Td Vaccine (1 - Tdap) 1974 Hepatitis B Screening 1981 Regular Well Visit/Exam 18-64 1981 Pneumococcal vaccine <65 (1 of 2 - PCV) 1982 Zoster Vaccine (1 of 2) 2013 Hemoglobin A1C 10/30/2023 05/01/2023, 01/02, 12/19/2022, Additional history exists Albumin Creatinine Ratio, Urine 12/20/2023 , 02/18/2017 Lipid Panel 12/20/2023 12/19/2022, 04/03, 04/16/2021, Additional history exists eGFR 12/20/2023 12/19/2022, 12/01, 06/06/2021, Additional history exists Covid-19 Vaccine (3 - 2023-2 5 season) 2024 09/06/2020, 08/09/2020 Foot Exam 05/01/2024 05/01/2023, 01/02, 10/13/2021, Additional history exists Influenza Vaccine (Season Ended) 2025 04/17/20 21, 05/25/2020 Dilated Eye Exam 03/26/2025 03/26/2023, 12/29/2020 Procedures Procedure Name Priority Date/Time Associated Diagnosis Comments POCT HEMOGLOBIN A1C Routine 05/01/2023 9 :11 AM MANAGER SERVICING Type 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, with long-term current use of insulin (HCC) DIABETIC EYE EXAM Routine 03/26/2023 COMPREHENSIVE METABOLIC PANEL Routine 12/19/2022 LIPID PANEL Routine 12/19/2022 ALBUMIN CREATININE RATIO, URINE Routine 12/19/2022 from Last 3 Months or Most Recently Relevant to Health Maintenance Results * POCT hemoglobin A1c (05/01/2023 9:11 AM MANAGER SERVICING) Hemoglobin A1C, POC 6.5 % Blood 05/01/2023 9:11 AM MANAGER SERVICING Harleen Bulter NP POINT OF CARE TEST ORDERABLES F inal Result * Diabetic Eye Exam (03/26/2023) 03/26/2023 Historical Provider HEALTH MAINTENANCE Final Result * Albumin Creatinine Ratio, Urine (12/19/2022) SCRIBED Creatinine, Urine 54.6 - - - [facility] SCRIBED Microalbumin 12.1 - - - [facility] SCRIBED Microalb/Creat Ratio 22 [facility] Urine 12/19/2022 Historical Provider LAB URINE ORDERABLES Gauri l Result [facility] * Lipid panel (12/19/2022) SCRIBED Cholesterol, Total 138 - - - [facility] SCRIBED HDL 66 - - - [facility] SCRIBED LDL 46 - - - [facility] SCRIBED Triglycerides 157 - - - [facility] Blood 12/19/2022 Historical Provider LAB BLOOD ORDERABLES Gauri l Result [facility] * Comprehensive metabolic panel (12/19/2022) SCRIBED Sodium 133 - - - mmol/L [facility] SCRIBED Potassium 5.1 - - - mmol/L [facility] SCRIBED Chloride 95 - - - mmol/L [facility] SCRIBED Carbon Dioxide 20 - - - mmol/L [facility] SCRIBED Urea Nitrogen (BUN) 25 - - - mg/dl [facility] SCRIBED Creatinine 1.23 - - - mg/dl [facility] SCRIBED Glucose 139 - - - mg/dl [facility] SCRIBED Calcium 9.2 - - - mg/dl [facility] SCRIBED Bilirubin 0.4 - - - mg/dl [facility] SCRIBED Plasma Protein 7.3 - - - g/dl [facility] SCRIBED Albumin 4.3 - - - g/dl [facility] SCRIBED Alkaline Phosphatase 171 - - - Units/L [facility] SCRIBED Alanine Transaminase (ALT) 19 - - - Units/L [facility] SCRIBED Aspartate Transaminase (AST) 15 - - - Units/L [facility] SCRIBED eGFR in 51 - - - [facility] SCRIBED eGFR in NonAfrican Turkish 51 - - - [facility] Blood 12/19/2022 Historical Provider LAB BLOOD ORDERABLES Gauri l Result [facility] from Last 3 Months or Most Recently Relevant to Health Maintenance Insurance [employer] ACCESS CHOICE [place] Member Subscriber Plan / Payer ( fective 2017-Present) Name:Pravin Pompa Relation to Subscriber:Self Name:Pravin Pompa Payer ID:[id number] (NAIC) Type:BC OTHER Address: [address] [place] [id number] [employer] [place] Care Teams Manager Android Relationship Specialty Start Date End Date Alethea Roberto NP [address] [place], [place] [address] [address] PCP - General Family Medicine 05/01/23
--- OUTSIDE RECORDS SUMMARY | 2024-10-18 13:49 | XMS_ITS | Encounter Summary ---
Author Organization [facility] Address [address] [place] [id number] Care Team Providers Care Aircraft Cylinder Mechanic Name Role Phone Jed Gale MD Primary Care Provider [phone] Alethea Roberto Primary Care Provider [phone] Alethea Roberto Unavailable [phone] Alethea Roberto Primary Care Provider [phone] Yvette Cunningham MD Primary Care Provider [phone] Encounter Details Date Type Department Care Team (Late st Contact Info) Description 11/08/2018 Abstract [facility] CONVERSION [address] [place] [address] , Generic Conversion, Social History Tobacco Use Types Packs/Day Years Used Date Smoking Tobacco: Never Assessed Comments Unknown Sex and Gender Information Value Date Recorded Sex Assigned at Female 06/16/2024 3:02 PM ENERGY CONSERVATION SPECIALIST Legal Sex Female 10:13 AM CDT Gender Identity Not on file Sexual Orientation Not on file documented as of this encounter Plan of Treatment Not on file documented as of this encounter Visit Diagnoses Not on filedocumented in this encounter Additional Health Concerns Infection Onset Date Last Indicated Resolved Time COVID-19 Rule Out 05/06/2020 05/06/2020 05/06/2020 2:48 PM ENERGY CONSERVATION SPECIALIST COVID-19 Rule Out 10/29/2020 10/29/2020 10/29/2020 7:37 PM CDT COVID-19 Rule Out 02/28/2022 02/28/2022 02/28/2022 10:20 AM CDT COVID-19 Rule Out 04/10/2024 04/10/2024 04/10/2024 12:09 PM ENERGY CONSERVATION SPECIALIST COVID-19 Rule Out 10/02/2024 10/02/2024 10/02/2024 1:17 PM CDT documented as of this encounter Care Teams Aircraft Cylinder Mechanic Relationship Specialty Start Date End Date Jed Gale MD [address] [place] [id number] PCP - General FAMILY PRACTICE 03/02/19 05/05/20 Alethea Roberto APNP [address] [place] [address] PCP - General NURSE PRACTITIONER 05/06/20 03/08/21 Alethea Roberto APNP [address] [place] [address] PCP - General NURSE PRACTITIONER 02/18/23 07/07/24 Yvette Cunningham MD [address] [place] [address] PCP - General FAMILY PRACTICE 07/08/24 Alethea Roberto APNP [address] [place] [address] Nurse Practitioner NURSE PRACTITIONER 03/09/21 documented as of this encounter
--- OUTSIDE RECORDS SUMMARY | 2024-10-18 13:50 | XMS_ITS | Encounter Summary ---
Author Organization [facility] - [facility] Address [address] [place] [address] Care Team Providers Care Tick Sewer Name Role Phone Alethea Roberto Unavailable [phone] Alethea Roberto Primary Care Provider [phone] Yvette Cunningham MD Primary Care Provider Encounter Details Date Type Department Care Team (Late st Contact Info) Description 11/29/2021 [facility] Patient Accounts [address] [place] [address] [employer], [facility] Provider Payment Plan - past due Social History Tobacco Use Types Packs/Day Years Used Date Smoking Tobacco: Former Cigarettes Q uit: 09/19/2020 Electronic Cigarettes Smokeless Tobacco: Never Alcohol Use Standard Drinks/Week Comments No 0 (1 standard drink = 0.6 oz pur e alcohol) AUDIT-C Answer Date Recorded Frequency of Alcohol Consumption Never 03/16/2019 Average Number of Drinks Not on file 019 Frequency of Binge Drinking Not on file 03/03 Comments No Sex and Gender Information Value Date Recorded Sex Assigned at Female 06/16/2024 3:02 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 Sex Female 10:13 AM CDT Gender Identity Not on file Sexual Orientation Not on file documented as of this encounter Plan of Treatment Not on file documented as of this encounter Visit Diagnoses Not on filedocumented in this encounter Additional Health Concerns Infection Onset Date Last Indicated Resolved Time COVID-19 Rule Out 02/28/2022 02/28/2022 02/28/2022 10:20 AM CDT COVID-19 Rule Out 04/10/2024 04/10/2024 04/10/2024 12:09 PM TICKET SALES SUPERVISOR COVID-19 Rule Out 10/02/2024 10/02/2024 10/02/2024 1:17 PM CDT documented as of this encounter Care Teams Tick Sewer Relationship Specialty Start Date End Date Alethea Roberto APNP [address] [place] [address] PCP - General NURSE PRACTITIONER 02/18/23 07/07/24 Yvette Cunningham MD [address] [place], [place] [id number] PCP - General FAMILY PRACTICE 07/08/24 Alethea Roberto APNP [address] [place] [address] Nurse Practitioner NURSE PRACTITIONER 03/09/21 documented as of this encounter
--- OUTSIDE RECORDS SUMMARY | 2024-10-18 13:50 | XMS_ITS | Encounter Summary ---
Author Organization [facility] Address [address] [place] [address] Care Team Providers Care Staff Design Engineer Name Role Phone Alethea Roberto Primary Care Provider Alethea Roberto Unavailable [phone] Alethea Roberto Primary Care Provider Yvette Cunningham MD Primary Care Provider [phone] Encounter Details Date Type Department Care Team (Late st Contact Info) Description 12/13/2020 [employer]tax[employer] Message Enc [facility] [address], [address] [address] Jamil Lyons MD [address] [place] [id number] Visit Follow Up Social History Tobacco Use Types Packs/Day Years [...] Sex Assigned at Female 06/16/2024 3: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 No / Unsure 12/15/2020 3:18 PM CDT documented as of this encounter Plan of Treatment Not on file documented as of this encounter Visit Diagnoses Not on filedocumented in this encounter Additional Health Concerns Infection Onset Date Last Indicated Resolved Time COVID-19 Rule Out 02/28/2022 02/28/2022 02/28/2022 10:20 AM CDT COVID-19 Rule Out 04/10/2024 04/10/2024 04/10/2024 12:09 PM CARPET YARN WINDER OPERATOR COVID-19 Rule Out 10/02/2024 10/02/2024 10/02/2024 1:17 PM CDT documented as of this encounter Care Teams Staff Design Engineer Relationship Specialty Start Date End Date Alethea Roberto APNP [address] [place] [address] PCP - General NURSE PRACTITIONER 05/06/20 03/08/21 [facility] [place] [address] PCP - General NURSE PRACTITIONER 02/18/23 07/07/24 Yvette Cunningham MD [address] [place] [address] PCP - General FAMILY PRACTICE 07/08/24 Alethea Roberto APNP [address] [address] Nurse Practitioner NURSE PRACTITIONER 03/09/21 documented as of this encounter
--- OUTSIDE RECORDS SUMMARY | 2024-10-18 13:50 | XMS_ITS | Clinical Summary ---
Author Organization [facility] Address [address] [place] [address] Care Team Providers Care Boiler Mechanic Name Role Phone PardeepOctaviosaba HOLLANDNP Unavailable [phone] Yvette Cunningham MD Primary Care Provider Allergies Active Allergy Reactions Criticality Noted Date Comments Latex Hives Low 03/16/2019 Sulfa Antibiotics Rash Medium 03/16/2019 Medications buPROPion XL 300 MG 24 hr tablet Take 1 tablet (300 mg total) by mouth daily. 0 019 Active ADVAIR DISKUS 250-50 MCG/DOSE inhalerIndication s:Asthma Inhale 1 puff into the lungs 2 (two) times daily. Indications: Asthma 0 018 Active metoprolol succinate ER (TOPROL-XL) 50 MG 24 hr tablet Take 1 tablet (50 mg total) by mouth daily. 4 019 Active FLUoxetine 20 MG capsule Take 3 capsules (60 mg total) by mouth daily. 021 Active lisinopril 30 MG tablet Take 1 tablet (30 mg total) by mouth nightly at bedtime. 021 Active omeprazole 20 MG capsule Take 1 capsule (20 mg total) by mouth 2 (two) times daily. 021 Active insulin aspart (NOVOLOG) 100 UNIT/ML injection (VIAL) USE DIRECTED VIA INSULIN PUMP 023 Active busPIRone (BUSPAR) 15 MG tablet Take 1 tablet (15 mg total) by mouth 2 (two) times daily. Active rosuvastatin (CRESTOR) 20 MG tablet Take 1 tablet (20 mg total) by mouth daily. Active cyclobenzaprine (FLEXERIL) 10 MG tablet Take 1 tablet (10 mg total) by mouth 3 (three) times daily as needed for Muscle Spasms. 023 Active aspirin 81 MG chewable tablet Chew 1 tablet (81 mg total) by mouth daily. Active melatonin 10 MG tablet Take 2 tablets (20 mg total) by mouth nightly at bedtime. Active albuterol sulfate HFA 108 (90 Base) MCG/ACT inhaler Inhale 2 puffs into the lungs every 6 (six) hours as needed for Wheezing. Active acetaminophen (TYLENOL) 500 MG tablet Take 1 tablet (500 mg total) by mouth every 6 (six) hours as needed for Pain. Active WALKER MISC, DME,Indications:P hysical deconditioning 1 Device by Does not apply route as needed. Diagnosis: R53.1 1 Device 024 2024 Active amLODIPine (NORVASC) 10 MG tablet Take 1 tablet (10 mg total) by mouth daily. 024 Active clonazePAM (KLONOPIN) 1 MG tablet Take 1 tablet (1 mg total) by mouth 2 (two) times daily as needed. 024 Active furosemide (LASIX) 20 MG tablet Take 1 tablet (20 mg total) by mouth daily. Active HYDROcodone-aceta minophen (NORCO) 5-325 MG tabletIndications :Acute Pain < 7 Day Supply Take 1-2 tablets by mouth every 6 (six) hours as needed. Indications: Acute Pain < 7 Day Supply 20 tablet Active Additional Information Patient taking differently: 1 tabletOralEvery 12 hours PRN, Indications: Acute Pain < 7 Day Supply, Reported on 10/08/2024 cyclobenzaprine (FLEXERIL) 10 MG tablet Take 1 tablet (10 mg total) by mouth 3 (three) times daily as needed for Muscle Spasms. 15 tablet 025 2024 Active methylPREDNISolon e, VANESA, (MEDROL DOSEPAK) 4 MG tablet Take as directed 1 each Active Calcium Carbonate-Vit D-Min (CALCIUM 1200) 8567-7921 MG-UNIT Chew Tab Chew 1 tablet by mouth daily. Active traMADol (ULTRAM) 50 MG tablet Take 1 tablet (50 mg total) by mouth every 6 (six) hours as needed for Pain. Active albuterol (ACCUNEB) 1.25 MG/3ML nebulizer solution Take 3 mLs (1.25 mg total) by nebulization every 4 (four) hours as needed for Wheezing. Active methocarbamol (ROBAXIN) 500 MG tablet Take 1 tablet (500 mg total) by mouth 3 (three) times daily as needed. Active metroNIDAZOLE (FLAGYL) 500 MG tablet Take 1 tablet (500 mg total) by mouth every 6 (six) hours. Active oxyCODONE-acetami nophen (PERCOCET) 5-325 MG tabletIndications :Acute Pain < 3 Day Supply Take 1 tablet by mouth every 6 (six) hours as needed for Pain. Indications: Acute Pain < 3 Day Supply 12 tablet 025 Active cephALEXin (KEFLEX) 500 MG capsule Take 1 capsule (500 mg total) by mouth 3 (three) times daily for 7 days. 21 capsule 025 2024 oxyCODONE-acetami nophen (PERCOCET) 2.5-325 MG tabletIndications :Acute Pain < 3 Day Supply Take 1 tablet by mouth every 6 (six) hours as needed for Pain. Indications: Acute Pain < 3 Day Supply 12 tablet 025 2024 Discontin ued(Formu jeanna change) Active Problems Problem Noted Date Diagnosed Date Left hip pain 09/22/2024 Physical deconditioning 04/29/2024 Acute hypoxic respiratory failure (CMS/[facility] HHS/H CC) 04/11/2024 Back pain 08/17/2023 Spinal arachnoid cyst 08/07/2023 Cervical radiculopathy 01/25/2023 Lumbar radiculopathy 12/28/2022 HTN (hypertension) 08/30/2022 HCAP (healthcare-associated pneumonia) Pneumonia 02/28/2022 Closed displaced fracture of shaft of fifth metacarpal bone of right hand, initial encounter 02/19/2022 Pain in right elbow 12/15/2020 Encounters Date Type Department Care Team Description 10/08/2024 8:54 AM CDT - 10/08/2024 11:42 AM CDT [facility] [address] [address] Melinda Martin MD Back Pain Discharge Disposition: Home or Self Care (Routine Discharge) 10/08/2024 Travel 10/02/2024 11:52 AM CDT - 10/02/2024 4:00 PM CDT [facility] [address] [place] [address] Melinda Martin MD Leg Pain Discharge Disposition: Home or Self Care (Routine Discharge) 10/02/2024 Travel 09/30/2024 9:11 AM CDT - 09/30/2024 11:59 PM CDT Hospital Encounter [facility] [address] [place] [id number] Gilma Castle APNP Kovarik, Ryan A, LIFESTYLE DIRECTOR Hip Pain Discharge Disposition: Home or Self Care (Routine Discharge) 09/30/2024 Travel 09/28/2024 9:37 AM CDT - 09/28/2024 11:59 PM CDT Hospital Encounter [facility] [address] [place] [id number] Gilma Castle APNP Kovarik, Ryan A, LIFESTYLE DIRECTOR Hip Pain Discharge Disposition: Home or Self Care (Routine Discharge) 09/28/2024 Travel 09/22/2024 8:12 AM CDT - 09/22/2024 11:59 PM CDT Hospital Encounter [facility] [address] [place] [id number] Jenn Sandoval, PT Hip Pain Discharge Disposition: Home or Self Care (Routine Discharge) 09/22/2024 Travel 09/21/2024 Telephone [facility] [address] [place] [id number] Gilma Castle APNP Appointment Request 09/14/2024 9:53 AM CDT - 09/14/2024 11:59 PM CDT Hospital Encounter [facility] [address] [place] [address] Yvette Cunningham MD Discharge Disposition: Home or Self Care (Routine Discharge) 09/14/2024 Travel 07/21/2024 8:30 AM MECHANICAL SERVICE TECHNICIAN - 07/21/2024 11:59 PM MECHANICAL SERVICE TECHNICIAN Hospital Encounter [facility] [address] [place] [address] Kasey Newberry PA Discharge Disposition: Home or Self Care (Routine Discharge) 07/21/2024 8:30 AM MECHANICAL SERVICE TECHNICIAN Office Visit [facility] [address] [facility] [address] [place] [address] Kasey Newberry PA Fracture (DOI:06/09/2024-Clos ed nondisplaced fracture of first metatarsal bone of RIGHT foot) 07/21/2024 Orders Only [place] [id number] [facility] [address] [place] [address] Kasey Newberry PA 07/21/2024 Travel from Last 3 Months Family History Medical History Relation Comments Alzheimers Father Aneurysm Father Diabetes Father Emphysema Father Hypertension Father Diabetes Mother Parkinson's Disease Mother Aneurysm Paternal Aunt Relation Status Comments Father Mother Alive Paternal Aunt all 6 aunts of brain aneurysms Social History Tobacco Use Types Packs/Day Years Used Date Smoking Tobacco: Former Cigarettes Q uit: 09/19/2020 Electronic Cigarettes Smokeless Tobacco: Never Tobacco Cessation:Counseling Given: Not Answered Comments:Vapes or E cigs every once in a while not much at all Alcohol Use Standard Drinks/Week Comments No 0 (1 standard drink = 0.6 oz pur e alcohol) B1300 Health Literacy Answer Date Recor ded How often do you need to hav e someone help you when you read instructions, pamphlets, or other written material from your doctor or pharmacy? Never 04/11/2024 [facility] Utilities Answer Date Recorded In the past 12 months has [employer], or water [employer] threatened to shut off services in your home? No 04/11/2024 Humiliation, Afraid, Rape, a nd Kick questionnaire Answer Date Recorded Within the last year, have y ou been afraid of your partner or ex-partner? Patient unable to answer 04/11/2024 Within the last year, have y ou been humiliated or emotionally abused in other ways by your partner or ex-partner? Patient unable to answer 04/11/2024 Within the last year, have y ou been kicked, hit, slapped, or otherwise physically hurt by your partner or ex-partner? Patient unable to answer 04/11/2024 Within the last year, have y ou been raped or forced to have any kind of sexual activity by your partner or ex-partner? Patient unable to answer 04/11/2024 Social Connection and Isolat ion Panel [NHANES] Answer Date Recorded In a typical week, how many times do you talk on the phone with family, friends, or neighbors? More than three times a week 04/11/2024 How often do you get togethe r with friends or relatives? More than three times a week 04/11/2024 How often do you attend chur ch or restorationist services? Patient declined 04/11/2024 Do you belong to any clubs o r organizations such as jewish groups, unions, fraternal or athletic groups, or school groups? Patient declined 04/11/2024 How often do you attend meet ings of the clubs or organizations you belong to? Patient declined 04/11/2024 Are you , , di vorced, , never , or living with a partner? 04/11/2024 AUDIT-C Answer Date Recorded Q1: How often do you have a drink containing alcohol? Never 04/11/2024 Q2: How many drinks containi ng alcohol do you have on a typical day when you are drinking? Patient does not drink Q3: How often do you have si x or more drinks on one occasion? Never 04/11/2024 Overall Financial Resource Strain (CARDIA) Answe r Date Recorded How hard is it for you to pa y for the very basics like food, housing, medical care, and heating? Not hard at all 04/11/2024 [facility] - Occupational Stress Questionnaire Answer Date Recorded Do you feel stress - tense, restless, nervous, or anxious, or unable to sleep at night because your mind is troubled all the time - these days? Not at all 04/11/2024 Exercise Vital Sign Answer Date Recorde d Days of Exercise per Week Not on file 2023 On average, how many minutes do you engage in exercise at this level? 0 min 04/11/2024 Hunger Vital Sign Answer Date Recorded Within the past 12 months, y ou worried that your food would run out before you got the money to buy more. Never true 04/11/20 24 Within the past 12 months, t he food you bought just didn't last and you didn't have money to get more. Never true 04/11/2024 PRAPARE - Transportation Answer Date Re corded In the past 12 months, has l ack of transportation kept you from medical appointments or from getting medications? No 02/2024 In the past 12 months, has l ack of transportation kept you from meetings, work, or from getting things needed for daily living? No 04/11/2024 Housing Stability Vital Sign Answer Don e Recorded In the last 12 months, was t here a time when you were not able to pay the mortgage or rent on time? No 08/07/2023 In the last 12 months, how many places have you lived? 1 08/07/2023 In the last 12 months, was t here a time when you did not have a steady place to sleep or slept in a residential (including now)? No 08/07/2023 Housing Stability Vital Sign Answer Don e Recorded In the last 12 months, was t here a time when you were not able to pay the mortgage or rent on time? No 04/11/2024 In the past 12 months, how m any times have you moved where you were living? 0 04/11/2024 At any time in the past 12 m [facility], were you homeless or living in a residential (including now)? No 04/11/2024 Comments No Sex and Gender Information Value Date Recorded Sex Assigned at Female 06/16/2024 3:02 PM MECHANICAL SERVICE TECHNICIAN Legal Sex Female 10:13 AM CDT Gender Identity Not on file Sexual Orientation Not on file Last Filed Vital Signs Vital Sign Reading Time Taken Comments Blood Pressure 133/63 10/08/2024 10:30 AM CDT Pulse 82 10/08/2024 9:02 AM CDT Temperature 36.5 C (97.7 F) 10/08/2024 9:02 AM CDT Respiratory Rate 14 10/08/2024 9:02 AM CDT Oxygen Saturation 92% 10/08/2024 11:30 AM CDT Inhaled Oxygen Concentration - - Weight 80.5 kg (177 lb 6.4 oz) 10/08/2024 9:02 A M CDT Height 154.9 cm (5' 1 ) 10/08/2024 9:02 AM CDT Body Mass Index 33.52 10/08/2024 9:02 AM CDT Plan of Treatment Health Maintenance Due Date Last Done Comments Cervical Cancer Screening Pa p Smear (Age 30 to 64) Every 3 Years 1963 Colorectal Cancer Screening Colonoscopy (10 Years) 1963 Kidney Health Evaluation 1963 Annual Physical 1966 Diabetes: Retinopathy Eye Exam 1981 DTaP, Tdap and Td Vaccines ( 1 - Tdap) 1982 Pneumococcal Vaccine: 50+ Years (1 of 2 - PCV) 1982 Cervical Cancer Screening Pa p with HPV Testing (Age 30 to 64) Every 5 Years 1993 Cervical Cancer Screening wi th HPV 1993 Zoster Vaccines (1 of 2) 2013 Lipid Panel 04/16/2022 04/16/2021 RSV Immunization or 60+ Years (1 - Risk 60-74 years 1-dose series) 2023 COVID-19 Vaccine (3 - 2023-2 5 season) 2024 09/06/2020, 08/09/2020 Hemoglobin A1C 10/09/2024 04/11/2024, 08/31/2022, 04/16/2021 Mammogram Screening 03/22/2025 03/22/2023, 12/21/2021 Hepatitis C Completed 08/17/2023 Meningococcal B Vaccine Aged Out No l onger eligible based on patient's age to complete this topic Meningococcal Vaccine Aged Out No mychal mert eligible based on patient's age to complete this topic RSV Immunizations Under 20 Months Aged Out No longer eligible b ased on patient's age to complete this topic Goals Goal Patient Goal Type Associated Problems Recent Progress Patient-Stated? Author Patient will return to prior living situation and remain independent in ADLs upon discharge from hospital Lifestyle No Elli Webb, RN Patient will return to prior living situation and remain independent in ADLs upon discharge from hospital Lifestyle No Leyda Gaitan RN Medical Devices Implanted Type Area Solution Developer Device Identifier Shelf Expiration Date Model / Serial / Lot Agent Hemostatic Surgiflo 8 Ml Kit - [id number] Implanted:Qty: 2 on 08/07/2023 by William Mello MD at [facility] Sealant N/A: Spine Thoracic [employer] 09/30/2024 [id number] / / [id number] Agent Hemostatic Surgiflo 8 Ml Kit - [id number] Implanted:Qty: 1 on 08/07/2023 by William Mello MD at [facility] Sealant N/A: Spine Thoracic [employer] 09/30/2024 2994 / / [id number] 1.7mm S Locking Plate T, Narrow 10 Holes Implanted:Qty: 1 on 02/21/2022 by Jamil Lyons MD at [facility] Right: Hand [employer] [id number] / / 1.7 X 11 Locking Screw Implanted:Qty: 2 on 02/21/2022 by Jamil Lyons MD at [facility] Right: Hand [employer] [id number] / / 1.7 X 9 Locking Screw Implanted:Qty: 1 on 02/21/2022 by Jamil Lyons MD at [facility] Right: Hand [employer] [id number] / / 1.7 X 7 Locking Screw Implanted:Qty: 2 on 02/21/2022 by Jamil Lyons MD at [facility] Right: Hand [employer] [id number] / / 1.7 X 6 Locking Screw Implanted:Qty: 1 on 02/21/2022 by Jamil Lyons MD at [facility] Right: Hand [employer] [id number] / / Variax 2 Non-Locking Screw 1.7mm X 7mm Implanted:Qty: 1 on 02/21/2022 by Jamil Lyons MD at [facility] Right: Hand [employer] [id number] / / [employer] 2 Non-Locking Screw 1.7mm X 8mm Implanted:Qty: 1 on 02/21/2022 by Jamil Lyons MD at [facility] Right: Hand [employer] [id number] / / Vistaseal Fibrin Sealant Implanted:Qty: 1 on 08/07/2023 by William Mello MD at [facility] N/A: Spine Thoracic [employer] [id number] 08/16/2023 [id number] / [id number] / [id number] Explanted Type Area Solution Developer Device Identifier Shelf Expiration Date Model / Serial / Lot 1.4 X 27mm, Ao Twist Drill Explanted:Qty: 1 on 02/21/2022 by Jamil Lyons MD at [facility] Right: Hand [employer] [id number] / / Procedures Procedure Name Priority Date/Time Associated Diagnosis Comments HC URINALYSIS AUTO W/MICRO STAT 10/08/2024 11:[address] HEAD WO CON STAT 10/08/2024 10:01 AM CDT COMPREHENSIVE METABOLIC PANEL STAT 10/08/2024 9:35 AM CDT CBC W/DIFF AUTOMATED STAT 10/08/2024 9:35 AM CDT SALICYLATE STAT 10/02/2024 12:42 PM CDT ACETAMINOPHEN STAT 10/02/2024 12:42 PM CDT ETHANOL STAT 10/02/2024 12:42 PM CDT THYROID STIM HORMONE TSH STAT 10/02/2024 12:42 PM CDT COMPREHENSIVE METABOLIC PANEL STAT 10/02/2024 12:42 PM CDT CBC W/DIFF AUTOMATED STAT 10/02/2024 12:42 PM CDT URINE BACTERIA CULTURE STAT 10/02/2024 12:30 PM CDT CORONAVIRUS (COVID-19) ANTIGEN STAT 10/02/2024 12:30 PM CDT DRUG SCREEN RAPID STAT 10/02/2024 12: 30 PM CDT HC URINALYSIS AUTO W/MICRO STAT 10/02/2024 12:30 PM CDT XR HIP LT 2V Routine 09/14/2024 10:06 AM CDT Left hip pain XR FOOT RT 3V Routine 07/21/2024 8:51 AM MECHANICAL SERVICE TECHNICIAN Closed nondisplaced fracture of first metatarsal bone of right foot with routine healing, subsequent encounter HEMOGLOBIN, GLYCOSYLATED Routine 04/11/2024 11:15 PM MECHANICAL SERVICE TECHNICIAN HEPATITIS PANEL,ACUTE STAT 08/17/2023 6:53 PM CDT MG SCREENING W SREE JUAN DIGI Routine 03/22/2023 10:16 AM CDT Visit for screening mammogram from Last 3 Months or Most Recently Relevant to Health Maintenance Results * (ABNORMAL) URINALYSIS (10/08/2024 11:01 AM CDT) Only the most recent of2 resultswithin the time period is included. COLOR (U) YELLOW 10/08/2024 11:28 AM CDT [facility] TRANSPARENCY CLEAR 10/08/2024 11:28 AM CDT [facility] SPECIFIC GRAVITY (U) 1.030(H) 1.000 - 1.025 10/08/2024 11:28 AM CDT [facility] Comment:EQUAL TO OR GREATER THAN U PH 5.0 5.0 - 8.0 10/08/2024 11:28 AM CDT [facility] LEUKOCYTES (U) NEGATIVE NEGATIVE 10/08/2024 11:28 AM CDT [facility] NITRITES NEGATIVE NEGATIVE 10/08/2024 11:28 AM CDT [facility] PROTEIN RANDOM (U) 2+(A) NEGATIVE 10/08/2024 11:28 AM CDT [facility] GLUCOSE (U) NEGATIVE NEGATIVE 10/08/2024 11:28 AM CDT [facility] KETONES MG/DL (U) 2+(A) NEGATIVE 10/08/2024 11:28 AM CDT [facility] UROBILINOGEN 0.2 <1.0 EU/DL 10/08/2024 11:28 AM CDT [facility] BLOOD (U) NEGATIVE NEGATIVE 10/08/2024 11:28 AM CDT [facility] WBC/HPF 5-10(A) 0 - 5 /HPF 10/08/2024 11:28 AM CDT [facility] RBC/HPF 0-5 0 - 5 /HPF 10/08/2024 11:28 AM CDT [facility] EPI/LPF FEW /LPF 10/08/2024 11:28 AM CDT [facility] BACTERIA (U) 2+ /HPF 10/08/2024 11:28 AM CDT [facility] OTHER CASTS (U) HYALINE /LPF 11:28 AM CDT [facility] Comment:50-100 BUDDING YEAST PRESENT /HPF 10/08/2024 11:28 AM CDT [facility] BILIRUBIN CONF ICTO (U) NEGATIVE NEGATIVE 10/08/2024 11:28 AM CDT [facility] URINE SPECIMEN OBTAINED BY CLEAN CATCH PROCEDURE / Unknown 10/08/2024 11:01 AM CDT us Melinda Martin MD URINE ORDERABLES Final Result [facility] [address] [place] [address], * CT HEAD WO CON (10/08/2024 10:01 AM CDT) Anatomical Region Laterality Modality Head Computed Tomogra phy 10/08/2024 10:0 9 AM CDT Impressions 10/08/2024 10:13 AM CDT IMPRESSION: 1. No CT evidence of an acute intracranial abnormality. 2. 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 3. Mild global cerebral volume loss. Ordered By: MELINDA MARTIN Interpreted By: Nate Aldridge MD, 10/08/2024 10:09 AM Narrative 10/08/2024 10:13 AM CDT [address] [place] [id number] Examination: CT HEAD WO CON, 10/08/2024 9:44 AM. Technique: Computed tomographic images of the head were obtained without intravenous contrast. Additional coronal and sagittal reformatted images were generated at a separate workstation. A dose lowering technique was used for this procedure, which may include, but is not limited to, dose reduction technique, automated exposure control, the use of iterative reconstruction, and ALARA (As Low As Reasonably Achievable) / Image Gently techniques. Clinical history: mental status change Comparison: CT head 04/25/2024 Findings: There is no acute intracranial hemorrhage. There is no extra-axial fluid collection. Focal encephalomalacia involving the left frontal insular region as evidence for an old infarct. Additional punctate focal area of encephalomalacia involving the superior left frontoparietal convexity (best seen on series 4 image 15). Calcification involving an M2 branch of the left middle cerebral artery, similar to the prior CT head examination from 04/25/2024. Mild global cerebral volume loss with ex vacuo dilatation of ventricles and cerebral sulci. The basal cisterns appear normal. Orbital contents appear normal. Paranasal sinuses and mastoid air cells are well aerated. There is no acute fracture nor destructive process of the visualized osseous structures. Procedure Note Nate Aldridge MD - 10/08/[address] [place] [id number] Examination: CT HEAD WO CON, 10/08/2024 9:44 AM. Technique: Computed tomographic images of the head were obtained withoutintravenous contrast. Additional coronal and sagittal reformatted imageswere generated at a separate workstation. A dose lowering technique wasused for this procedure, which may include, but is not limited to, dosereduction technique, automated exposure control, the use of iterativereconstruction, and ALARA (As Low As Reasonably Achievable) / Image Gentlytechniques. Clinical history: mental status change Comparison: CT head 04/25/2024 Findings: There is no acute intracranial hemorrhage. There is no extra-axial fluidcollection. Focal encephalomalacia involving the left frontal insularregion as evidence for an old infarct. Additional punctate focal area ofencephalomalacia involving the superior left frontoparietal convexity(best seen on series 4 image 15). Calcification involving an M2 branch ofthe left middle cerebral artery, similar to the prior CT head examinationfrom 04/25/2024. Mild global cerebral volume loss with ex vacuo dilatationof ventricles and cerebral sulci. The basal cisterns appear normal.Orbital contents appear normal. Paranasal sinuses and mastoid air cellsare well aerated. There is no acute fracture nor destructive process ofthe visualized osseous structures. IMPRESSION: 1. No CT evidence of an acute intracranial abnormality. 2. 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 3. Mild global cerebral volume loss. Ordered By: MELINDA MARTIN Interpreted By: Nate Aldridge MD, 10/08/2024 10:09 AM Melinda Martin MD CT Final Result * (ABNORMAL) COMPREHENSIVE METABOLIC PANEL (10/08/2024 9:35 AM CDT) Only the most recent of2 resultswithin the time period is included. SODIUM S/P/B 138 136 - 145 MMOL/L 10/08/2024 9:56 AM CDT [facility] POTASSIUM S/P/B 3.7 3.5 - 5.1 MMOL/L 10/08/2024 9:56 AM CDT [facility] CHLORIDE S/P/B 101 98 - 107 MMOL/L 10/08/2024 9:56 AM [facility] CO2 29.1 21.0 - 32.0 MMOL/L 10/08/2024 9:56 AM [facility] GLUCOSE 222(H) 70 - 99 MG/DL 10/08/2024 9:56 AM [facility] Comment: FASTING GLUCOSE 100 TO 125 MG/DL IS CONSISTENT WITH IMPAIRED FASTING GLUCOSE. FASTING GLUCOSE >125 MG/DL IS CONSISTENT WITH DIABETES. RANDOM GLUCOSE >200 MG/DL WITH HYPERGLYCEMIC SYMPTOMS IS CONSISTENT WITH DIABETES. PER ADA GUIDELINES BUN 13 6 - 24 MG/DL 10/08/2024 9:56 AM [facility] CREATININE S/P/B 1.11(H) 0.55 - 1.02 MG/DL 10/08/2024 9:56 AM [facility] CALCIUM S/P/B 9.5 8.4 - 10.5 MG/DL 10/08/2024 9:56 AM [facility] BILIRUBIN TOTAL S/P/B 0.6 0.2 - 1.0 MG/DL 10/08/2024 9:56 AM [facility] Comment: THIS ASSAY IS NOT RECOMMENDED FOR PATIENTS UNDERGOING TREATMENT WITH ELTROMBOPAG DUE TO THE POTENTIAL FOR FALSELY ELEVATED RESULTS. ALKALINE PHOSPHATASE S/P/B 144(H) 50 - 130 U/L 10/08/2024 9:56 AM [facility] AST 14(L) 15 - 37 U/L 10/08/2024 9:56 AM [facility] ALT 64(H) 14 - 59 U/L 10/08/2024 9:56 AM [facility] TOTAL PROTEIN S/P/B 7.6 6.4 - 8.2 G/DL 10/08/2024 9:56 AM [facility] ALBUMIN S/P/B 3.6 3.4 - 5.0 G/DL 10/08/2024 9:56 AM [facility] ANION GAP 7.9 5.0 - 15.0 MMOL/L 10/08/2024 9:56 AM [facility] OSMOLALITY (CALC) 293 MOSM/KG 05/08/2 025 9:56 AM CDT [facility] Comment:REFERENCE RANGE NOT ESTABLISHED GFR ESTIMATE 57(L) >89 ML/MIN/1. 73 M2 10/08/2024 9:56 AM CDT [facility] GFR NOTES GFR REFERENCE S: 10/08/2024 9:56 AM CDT [facility] Comment: THE ESTIMATED GFR IS CALCULATED USING THE 2020 CKD-EPI EQUATION. THE FOLLOWING CATEGORIES FOR GRADING RENAL FUNCTION ARE RECOMMENDED BY THE INTERNATIONAL SOCIETY OF NEPHROLOGY (KDIGO 2012 CLINICAL PRACTICE GUIDELINE). G1,NORMAL OR HIGH: >89 ml/min/1.73 m2 G2,MILDLY DECREASED: 60-89 ml/min/1.73 m2 G3A,MILDLY TO MODERATELY DECREASED: 45-59 ml/min/1.73 m2 G3B,MODERATELY TO SEVERELY DECREASED: 30-44 ml/min/1.73 m2 G4,SEVERELY DECREASED: 15-29 ml/min/1.73 m2 G5,KIDNEY FAILURE: <15 ml/min/1.73 m2 10/08/2024 9:35 AM CDT us Melinda Martin MD LABORATORY Final Result [facility] [place] [id number], * (ABNORMAL) CBC W/DIFF AUTOMATED (10/08/2024 9:35 AM CDT) Only the most recent of2 resultswithin the time period is included. WBC 10.96(H) 4.00 - 10.80 x10'3/uL 10/08/2024 9:42 AM CDT [facility] RBC 4.96 4.10 - 5.40 x10'6/uL 10/08/2024 9:42 AM CDT [facility] HGB 12.6 12.0 - 16.0 G/DL 10/08/2024 9:42 AM CDT [facility] HCT 40.4 36.0 - 47.0 % 10/08/2024 9:42 AM CDT [facility] MCV 81.5 78.0 - 100.0 FL 10/08/2024 9:42 AM CDT [facility] MCH 25.4(L) 27.0 - 31.0 PG 10/08/2024 9:42 AM T [facility] MCHC 31.2(L) 33.0 - 36.0 G/DL 10/08/2024 9:42 AM T [facility] RDW 16.3(H) 11.5 - 14.5 % 10/08/2024 9:42 AM CDT [facility] PLT 329 150 - 350 x10'3/uL 10/08/2024 9:42 AM T [facility] MPV 10.7(H) 7.4 - 10.4 FL 10/08/2024 9:42 AM T [facility] CBC COMMENT NORMAL REFERENCE RANGE NOT ESTABLISHED FOR THE PROPORTIONAL LEUKOCYTE DIFFERENTIAL. 10/08/2024 9:42 AM T [facility] [id number]|2024-10-18 14:29:00|2024-10-18 14:29:00|XMS_ITS|BKG DACOTYON|External Medical Summaries|[id number]|" Encounter Summary Created on: October 18, 2024 Pravin Pompa : 1965 Sex: Female Author Organization [facility] Address [facility] [place] [address] Care Team Providers Care Boiler Mechanic Name Role Phone Alethea Roberto Unavailable [phone] Alethea Roberto Primary Care Provider [phone] Yvette Cunningham MD Primary Care Provider [phone] Encounter Details Date Type Department Care Team (Late st Contact Info) Description 11/29/2021 MyChart Message [facility] Patient [place] [address] Linda [facility] Provider Payment Plan - past due Social [...] Sex Assigned at Female 06/16/2024 3:02 PM MECHANICAL SERVICE TECHNICIAN Legal Sex Female 10:13 AM CDT Gender [...] Rule Out 04/10/2024 04/10/2024 04/10/2024 12:09 PM MECHANICAL SERVICE TECHNICIAN COVID-19 Rule Out 10/02/2024 10/02/2024 10/02/2024 1:17 PM CDT documented as of this encounter Care Teams Boiler Mechanic Relationship Specialty Start Date End Date Alethea Roberto [place] [place] [address] PCP - General NURSE PRACTITIONER 02/18/23 07/07/24 Yvette [place] [address] PCP - General FAMILY PRACTICE 07/08/24 Alethea Roberto [facility] [place] [address] Nurse Practitioner NURSE PRACTITIONER 03/09/21 documented as of this encounter "
--- OUTSIDE RECORDS SUMMARY | 2024-10-18 13:50 | XMS_ITS | Encounter Summary ---
Author Organization [facility] Address [address] [place] [address] Care Team Providers Care Saas Architect Name Role Phone Alethea Roberto Unavailable [phone] Alethea Roberto Primary Care Provider [phone] Yvette Cunningham MD Primary Care Provider [phone] Encounter Details Date Type Department Care Team (Late st Contact Info) Description 02/19/2022 [facility] Tele[facility] Message Enc [facility] [address] [place] [id number] Ericka Acosta, [facility] [address] [facility] [place] [address] Visit Follow Up Social History Tobacco Use [...] Sex Assigned at Female 06/16/2024 3:02 PM VOCATIONAL HORTICULTURE INSTRUCTOR Legal Sex Female 10:13 AM CDT Gender Identity Not on file Sexual Orientation Not on file COVID-19 Exposure Response Date Recorded In the last 10 days, have yo u been in contact with someone who was confirmed or suspected to have Coronavirus/COVID-19? No / Unsure 02/21/2022 9:00 AM CDT documented as of this encounter Functional Status * Calculated C-SSRS Risk Score (Lifetime/Recent) Answer Date of Assessment Author Status No Risk Indicated 02/21/2022 9:22 AM [facility] Kylie Nuñez RN Active * [place] Suicide Severity Rating Scale (Screener/Recent Self-Report) Question Answer Date of Assessment Author Status 1. Wish to be (Past 1 Month) No 02/21/2022 9:22 AM [facility] Peri Nuñez RN Active 2. Non-Specific Active Suicidal Thoughts (Past 1 Month) No 02/21/2022 9:22 AM [facility] Peri Nuñez RN Active 6. Suicidal Behavior (Lifetime) No 02/21/2022 9:22 AM [facility] Peri Nuñez RN Active documented as of this encounter Plan of Treatment Not on file documented as of this encounter Visit Diagnoses Not on filedocumented in this encounter Additional Health Concerns Infection Onset Date Last Indicated Resolved Time COVID-19 Rule Out 02/28/2022 02/28/2022 02/28/2022 10:20 AM CDT COVID-19 Rule Out 04/10/2024 04/10/2024 04/10/2024 12:09 PM VOCATIONAL HORTICULTURE INSTRUCTOR COVID-19 Rule Out 10/02/2024 10/02/2024 10/02/2024 1:17 PM CDT documented as of this encounter Care Teams Saas Architect Relationship Specialty Start Date End Date Alethea Roberto APNP [address] [place] [address] PCP - General NURSE PRACTITIONER 02/18/23 07/07/24 Yvette Cunningham MD [address] [place] [address] PCP - General FAMILY PRACTICE 07/08/24 Alethea Roberto APNP [address] [place] [address] Nurse Practitioner NURSE PRACTITIONER 03/09/21 documented as of this encounter
--- OUTSIDE RECORDS SUMMARY | 2024-10-18 13:50 | XMS_ITS | Encounter Summary ---
Author Organization [facility] Address [address] [place] [address] Care Team Providers Care Exceptional Children Teacher Name Role Phone Alethea Roberto Unavailable [phone] Alethea Roberto Primary Care Provider [phone] Yvette Cunningham MD Primary Care Provider [phone] Encounter Details Date Type Department Care Team (Late st Contact Info) Description 06/17/2024 [facility] Message Enc [facility] [address] [place] [address] [address] [place] [address] Kasey Newberry PA [address] [place] [address] Visit Follow Up Social History Tobacco Use Types Packs/Day Years Used Date Smoking Tobacco: Former Cigarettes Q uit: 09/19/2020 Electronic Cigarettes Smokeless Tobacco: Never Comments:Vapes or E cigs skyler ry once in a while not much at all Alcohol Use Standard Drinks/Week Comments No 0 (1 standard drink = 0.6 oz pur e alcohol) B1300 Health Literacy Answer Date Recor ded How often do you need to hav e someone help you when you read instructions, pamphlets, or other written material from your doctor or pharmacy? Never 04/11/2024 [facility] Utilities Answer Date Recorded In the past 12 months has th e electric, gas, oil, or water company threatened to shut off services in your [...] week 04/11/2024 How often do you attend [facility] or [facility] services? Patient declined 04/11/2024 Do you belong to any clubs o r organizations such as voodoo groups, unions, fraternal or athletic groups, or [...] and heating? Not hard at all 04/11/2024 [facility] - Occupational Stress [...] place to sleep or slept in a alf (including now)? No 08/07/2023 Housing Stability Vital Sign Answer Don e Recorded In the last 12 months, was t here a time when you were not able to pay the mortgage or rent on time? No 04/11/2024 In the past 12 months, how m any times have you moved where you were living? 0 04/11/2024 At any time in the past 12 m [facility], were you homeless or living in a alf (including now)? No 04/11/2024 Comments No Sex and Gender Information Value Date Recorded Sex Assigned at Female 06/16/2024 3:02 PM NECK FITTER Legal Sex Female 10:13 AM CDT Gender Identity Not on file Sexual Orientation Not on file documented as of this encounter Functional Status * Are you deaf or do you have serious difficulty hearing Answer Date of Assessment Author Status No 04/28/2024 6:08 PM Sandy Louis RN Active * Are you blind or do you have serious difficulty seeing, even when wearing glasses? Answer Date of Assessment Author Status No 04/28/2024 6:08 PM Sandy Louis RN Active * Do you have serious difficulty walking or climbing stairs? Answer Date of Assessment Author Status Yes 04/28/2024 6:08 PM Sandy Louis RN Active * Do you have difficulty dressing or bathing? Answer Date of Assessment Author Status No 04/28/2024 6:08 PM Sandy Louis RN Active * Because of a physical, mental, or emotional condition, do you have difficulty doing errands alone such as visiting a doctor's office or shopping? Answer Date of Assessment Author Status No 04/28/2024 6:08 PM Sandy Louis RN Active documented as of this encounter Mental Status * Because of a physical, mental, or emotional condition, do you have serious difficulty concentrating, remembering, or making decisions? Answer Entry Date Author Status No 04/28/2024 6:08 PM Sandy Louis RN Active documented in this encounter Plan of Treatment Not on file documented as of this encounter Goals Goal Patient Goal Type Associated Problems Recent Progress Patient-Stated? Author Patient will return to prior living situation and remain independent in ADLs upon discharge from hospital Lifestyle No Elli Webb, KORINA Patient will return to prior living situation and remain independent in ADLs upon discharge from hospital Lifestyle No Leyda Gaitan RN documented as of this encounter Visit Diagnoses Not on filedocumented in this encounter Additional Health Concerns Infection Onset Date Last Indicated Resolved Time COVID-19 Rule Out 10/02/2024 10/02/2024 10/02/2024 1:17 PM CDT documented as of this encounter Care Teams Exceptional Children Teacher Relationship Specialty Start Date End Date [facility] [place] [address] PCP - General NURSE PRACTITIONER 02/18/23 07/07/24 Yvette Cunningham MD On license of [facility] [place] [address] PCP - General FAMILY PRACTICE 07/08/24 Alethea Roberto APNP [address] [place] [address] Nurse Practitioner NURSE PRACTITIONER 03/09/21 documented as of this encounter
[2024-10-18 13:56] LABS: Glucose Point of Care 427 mg/dl (65-105)
--- NOTE | 2024-10-18 14:09 | ED_ITS ---
HPI - General Adult General Chief complaint: Nausea/Vomiting/Diarrhea Stated complaint: neck pain History of Present Illness HPI narrative: Pravin is a 59F with a PMH of Memory loss, depression, HTN, HLD, GERD and insulin dependent diabetes that presented to the ED with abdominal pain and confusion. She believes she has had it for 2 weeks and she has been seen in [place] ED twice for it with a negative workup. However, her believes she has had it for 2 days. It is a central umbilical pain with a lot of dry heaving and several episodes of diarrhea. No falls, trauma, fevers, hematochezia reported. Related Data Home Medications Medication Instructions Recorded Confirmed Last Taken Type albuterol sulfate 90 mcg/actuation 2 puff inhalation Q4-5H PRN 04/14/21 10/18/24 Unknown History aerosol inhaler Shortness Of Breath bupropion HCl 300 mg 24 hr tablet, 300 mg PO DAILY 04/14/21 10/18/24 Unknown History extended release cyclobenzaprine 10 mg tablet 10 mg PO TID PRN Muscle Spasm 04/14/21 10/18/24 Unknown History fluoxetine 20 mg capsule 60 mg PO DAILY 04/14/21 10/18/24 Unknown History furosemide 20 mg tablet 20 mg PO DAILY 04/14/21 10/18/24 Unknown History insulin aspart U-100 100 unit/mL 1 sliding scale dose subcut 04/14/21 10/18/24 Unknown History subcutaneous solution (Novolog USEASDIRECTD U-100 Insulin aspart) lisinopril 30 mg tablet 30 mg PO DAILY 04/14/21 10/18/24 Unknown History melatonin 10 mg tablet 10 mg PO HS 04/14/21 10/18/24 Unknown History omeprazole 20 mg capsule,delayed 20 mg PO BID 04/14/21 10/18/24 Unknown History release rosuvastatin 20 mg tablet 20 mg PO HS 04/14/21 10/18/24 Unknown History clonazepam 1 mg tablet 1 mg PO BID PRN Anxiety 02/16/22 10/18/24 Unknown History amlodipine 10 mg tablet 10 mg PO DAILY 10/18/24 10/18/24 Unknown History aspirin 81 mg chewable tablet 81 mg PO DAILY 10/18/24 10/18/24 Unknown History (Aspirin Childrens) calcium carbonate (Calcium 500) 500 mg PO DAILY 10/18/24 10/18/24 Unknown History fluticasone 500 mcg-salmeterol 50 1 inh inhalation Q12H 10/18/24 10/18/24 Unknown History mcg/dose blistr powdr for inhalation (Morena Inhub) hydrocodone 5 mg-acetaminophen 325 1 tablet PO Q6H PRN pain 10/18/24 10/18/24 Unknown History mg tablet methocarbamol 500 mg tablet 500 mg PO Q8H PRN muscle spasm 10/18/24 10/18/24 Unknown History metoprolol succinate 50 mg 50 mg PO DAILY 10/18/24 10/18/24 Unknown History tablet,extended release 24 hr Allergies Allergy/AdvReac Type Severity Reaction Status Date / Time Sulfa (Sulfonamide Allergy Unknown Rash Verified 10/18/24 15:12 Antibiotics) Latex, Natural Rubber Allergy Swelling Verified 10/18/24 15:12 of Lip/Tongue/Throat Review of Systems 2 Review of Systems: All systems reviewed & are unremarkable except as noted in HPI and below PMFSH Past Medical History Medical History Hemorrhoids GERD (gastroesophageal reflux disease) Diabetes Torticollis Depression with suicidal ideation CVA (cerebral vascular accident) Dyslipidemia Hypertension Surgical History Surgical History Hx of cholecystectomy Family History Family History (Updated 10/18/24 @ 19:40 by Luisa Ruiz RN) Other Unknown family medical history Social History Social History Smoking status: Former smoker Tobacco type: cigarettes Alcohol intake: former Substance use: current Substance use type: marijuana Do You Feel Safe in your Home?: Yes Lack of Transportation: No Lack of Food: Never True Current Housing: I Have Housing Concerned About Future Housing: No Difficulty Paying Gas/Electric Bills: No Difficulty Paying for Meds: No Currently Unemployed: No Education: High School Diploma/GED Difficulty w/ Childcare or Family Care: No Spiritual care concerns: No Exam 2 Const: General: cooperative, well developed, alert, awake and Physically active Orientation/consciousness: oriented to person and oriented to place Other: was holding abdomen in mild distress. HENMT: Head: normal to inspection, normocephalic and atraumatic Ears: h earing grossly normal bilaterally and external ears normal Face/Nose/Sinus: N ormal external nose present Eyes: General: appearance normal, both eyes and all related structures P eriorbital: periorbital findings normal Sclera: sclerae normal Pupils: E qual, round and reactive pupils present Neck: Neck: normal visual inspection Chest: Chest palpation & inspection: normal inspection of the chest Resp: Effort & Inspection: normal respiratory effort, able to speak in complete sentences and no respiratory distress Auscultation: clear to auscultation bilaterally Cardio: Jugular venous distension: no JVD Rate: regular rate Rhythm: r egular rhythm GI: Inspection: normal to inspection GI Palp: Yes Soft to palpation A uscultation: normal bowel sounds Other: Diffuse TTP, No guarding or rebound tenderness. Skin: General skin exam: normal color and no rashes or lesions noted Neuro: General: oriented to person, oriented to place and oriented to time Cranial nerves: Yes Equal, round and reactive pupils present Other: Oriented to person, place and knew the year but not the month. She struggled but could say the months of the year backward. She could not remember 3 words after 3 minutes. Extrem: General: normal to inspection Course Course Emergency Course: Ordered labs, UA, CT brain, morphine, zofran and fluids. PROCEDURE: CT head without contrast. COMPARISON: 04/14/2021 TECHNIQUE: Axial imaging of the head performed from the skull base to the vertex without IV contrast. Sagittal and coronal reformations obtained. DLP: 605 mGy-cm FINDINGS: The ventricles are normal in size, shape and position. There is no mass, mass effect or midline shift. Encephalomalacia and gliosis are identified within the distribution of the left middle cerebral artery, suggesting prior cerebral infarction. There is no abnormal extra-axial fluid collection or acute/subacute intracranial hemorrhage. Visualized paranasal sinuses are clear. The mastoid air cells are well aerated. No acute displaced fractures within the overlying cranium. Impression: No acute intracranial hemorrhage or suspicious mass effect. Findings consistent with prior cerebral infarction within the left middle cerebral artery, as detailed above. EKG shows NSR with a rate of 68, normal axis, no ST elevation/depression CT Abd/pelvis w/ contrast. IMPRESSION: Findings within the distal transverse and proximal descending colon for which an enteritis is suspected. Follow-up to resolution is recommended as a malignancy may have a similar appearance. Labs showed normal CBC, critical glucose, hypokalemia, and low Mg. Replacement was ordered along with fluids and insulin. She tried to drink some water and it resulted in vomiting. I discussed admission as she cannot tolerate PO, has elevated sugars and needs IV fluids. She was ok with admission. Vital Signs Vital signs: Vital Signs Temperature 96.7 F L 10/18/24 13:46 Pulse Rate 84 10/18/24 13:46 Respiratory Rate 18 10/18/24 13:46 Blood Pressure 182/70 H 10/18/24 13:46 Pulse Oximetry 97 10/18/24 13:46 Oxygen Delivery Room Air 10/18/24 13:46 Temperature 98.0 F 10/19/24 00:00 Pulse Rate 84 10/19/24 00:00 Respiratory Rate 16 10/19/24 00:00 Blood Pressure 139/65 10/19/24 00:00 Pulse Oximetry 98 10/19/24 00:00 Oxygen Delivery Room Air 10/19/24 00:00 Medical Decision Making Vital Signs Vital Signs: Vital Signs Temperature 96.7 F L 10/18/24 13:46 Pulse Rate 84 10/18/24 13:46 Respiratory Rate 18 10/18/24 13:46 Blood Pressure 182/70 H 10/18/24 13:46 Pulse Oximetry 97 10/18/24 13:46 Oxygen Delivery Room Air 10/18/24 13:46 Temperature 98.0 F 10/19/24 00:00 Pulse Rate 84 10/19/24 00:00 Respiratory Rate 16 10/19/24 00:00 Blood Pressure 139/65 10/19/24 00:00 Pulse Oximetry 98 10/19/24 00:00 Oxygen Delivery Room Air 10/19/24 00:00 Lab Data 10/18/24 15:19 10/18/24 15:20 Labs: Lab Results 10/18/24 10/18/24 10/18/24 Range/Units 13:54 15:19 15:20 WBC 8.9 (4.8-10.8) K/mm3 RBC 4.79 (4.20-5.40) M/mm3 Hgb 12.0 (12.0-15.0) g/dL Hct 39.6 (35.0-49.0) % MCV 82.7 (78.0-102.0) fL MCH 25.1 L (27.0-31.0) pg MCHC 30.3 L (32-36) g/dL RDW 16.6 H (11.6-14.4) % Plt Count 293 (150-420) K/mm3 MPV 12.2 H (9.2-11.8) fl Immature Gran % (Auto) 0.7 H (0.0-0.0) % Neut % (Auto) 72.0 H (50.0-70.0) % Lymph % (Auto) 18.0 (18.0-42.0) % [place] % (Auto) 7.6 (2.0-11.0) % Eos % (Auto) 0.9 L (1.0-6.0) % Baso % (Auto) 0.8 (0.0-1.0) % Lymph # (Auto) 1.60 (1.10-4.50) K/mm3 [place] # (Auto) 0.68 (0.10-0.90) K/mm3 Eos # (Auto) 0.08 (0.02-0.50) K/mm3 Baso # (Auto) 0.07 (0.00-0.10) K/mm3 Abs Immat Gran (auto) 0.06 H (0.00-0.00) K/mm3 Absolute Neuts (auto) 6.41 (1.70-7.20) K/mm3 Absolute Nucleated RBC 0.00 (0.00-0.00) K/mm3 Nucleated RBC % 0.0 (0-0.0) % Sodium 133 L (136-145) mmol/L Potassium 3.3 L (3.5-5.1) mmol/L Chloride 99 (98-108) mmol/L Carbon Dioxide 24 (21-32) mmol/L Anion Gap 10 (4-12) mmol/L BUN 11 (7-18) mg/dL Creatinine 1.22 H (0.55-1.02) mg/dL Estim Creat Clear Calc 41 ml/min Estimated GFR 45 L (59 - ) Glucose 402 H* (70-99) mg/dL POC Capillary Glucose 427 H (65-105) mg/dl Calculated Osmolality 292 (285-295) mOsm/kg Lactic Acid 3.5 H (0.4-2.0) mmol/L Calcium 8.7 (8.5-10.1) mg/dL Magnesium 1.6 L (1.8-2.4) mg/dL Total Bilirubin 0.5 (0.00-1.00) mg/dL AST 14 L (15-37) U/L ALT 53 (14-59) U/L Alkaline Phosphatase 136 H (46-116) U/L Troponin I 8.5 (0.00-60.4) ng/L Total Protein 6.6 (6.4-8.2) g/dL Albumin 3.3 L (3.4-5.0) g/dL Lipase 16 (16-77) U/L TSH 0.32 L (0.36-3.74) uIU/mL Urine Color Light yellow (Yellow) Urine Appearance Clear (Clear) Urine pH 6.0 (5.0-8.0) Ur Specific [place] 1.010 (1.010-1.020) Urine Protein 1+ H (Negative) Urine Glucose (UA) 3+ H (Negative) Urine Ketones 1+ H (Negative) Ur Blood (Man) Trace-intact H (Negative) Urine Nitrate Negative (Negative) Urine Bilirubin Negative (Negative) Urine Urobilinogen 0.2 (0.2-1.0) mg/dL Leukocyte Esterase Rfl Negative (Negative) JINA/UL Urine RBC 0-2 (0-2) /hpf Ur Squamous Epith Cells Few (Few) /hpf Amorphous Sediment Few H (None) Urine Opiates Screen Positive A (Negative) Urine Methadone Screen Negative (Negative) Ur Barbiturates Screen Negative (Negative) Ur Phencyclidine Scrn Negative (Negative) Ur Amphetamine Screen Negative (Negative) U Benzodiazepines Scrn Negative (Negative) Urine Cocaine Screen Negative (Negative) U Cannabinoids Screen Positive A (Negative) Ethyl Alcohol < 3 (0-6) mg/dL 10/18/24 Range/Units 17:11 WBC (4.8-10.8) K/mm3 RBC (4.20-5.40) M/mm3 Hgb (12.0-15.0) g/dL Hct (35.0-49.0) % MCV (78.0-102.0) fL MCH (27.0-31.0) pg MCHC (32-36) g/dL RDW (11.6-14.4) % Plt Count (150-420) K/mm3 MPV (9.2-11.8) fl Immature Gran % (Auto) (0.0-0.0) % Neut % (Auto) (50.0-70.0) % Lymph % (Auto) (18.0-42.0) % [place] % (Auto) (2.0-11.0) % Eos % (Auto) (1.0-6.0) % Baso % (Auto) (0.0-1.0) % Lymph # (Auto) (1.10-4.50) K/mm3 [place] # (Auto) (0.10-0.90) K/mm3 Eos # (Auto) (0.02-0.50) K/mm3 Baso # (Auto) (0.00-0.10) K/mm3 Abs Immat Gran (auto) (0.00-0.00) K/mm3 Absolute Neuts (auto) (1.70-7.20) K/mm3 Absolute Nucleated RBC (0.00-0.00) K/mm3 Nucleated RBC % (0-0.0) % Sodium (136-145) mmol/L Potassium (3.5-5.1) mmol/L Chloride (98-108) mmol/L Carbon Dioxide (21-32) mmol/L Anion Gap (4-12) mmol/L BUN (7-18) mg/dL Creatinine (0.55-1.02) mg/dL Estim Creat Clear Calc ml/min Estimated GFR (59 - ) Glucose (70-99) mg/dL POC Capillary Glucose 335 H (65-105) mg/dl Calculated Osmolality (285-295) mOsm/kg Lactic Acid (0.4-2.0) mmol/L Calcium (8.5-10.1) mg/dL Magnesium (1.8-2.4) mg/dL Total Bilirubin (0.00-1.00) mg/dL AST (15-37) U/L ALT (14-59) U/L Alkaline Phosphatase (46-116) U/L Troponin I (0.00-60.4) ng/L Total Protein (6.4-8.2) g/dL Albumin (3.4-5.0) g/dL Lipase (16-77) U/L TSH (0.36-3.74) uIU/mL Urine Color (Yellow) Urine Appearance (Clear) Urine pH (5.0-8.0) Ur Specific [place] (1.010-1.020) Urine Protein (Negative) Urine Glucose (UA) (Negative) Urine Ketones (Negative) Ur Blood (Man) (Negative) Urine Nitrate (Negative) Urine Bilirubin (Negative) Urine Urobilinogen (0.2-1.0) mg/dL Leukocyte Esterase Rfl (Negative) JINA/UL Urine RBC (0-2) /hpf Ur Squamous Epith Cells (Few) /hpf Amorphous Sediment (None) Urine Opiates Screen (Negative) Urine Methadone Screen (Negative) Ur Barbiturates Screen (Negative) Ur Phencyclidine Scrn (Negative) Ur Amphetamine Screen (Negative) U Benzodiazepines Scrn (Negative) Urine Cocaine Screen (Negative) U Cannabinoids Screen (Negative) Ethyl Alcohol (0-6) mg/dL ABG Data ABG results: 10/18/24 15:20 VBG pH 7.36 VBG pCO2 37.7 L VBG pO2 29.2 L VBG HCO3 20.7 L O2 Delivery Device Room air O2 Liters/Min 0.0 Discharge Plan Discharge Clinical Impression: Enteritis, Acute hyperglycemia Patient Disposition: Acute Care [facility] Condition: Serious
--- NOTE | 2024-10-18 14:22 | ECG_ITS ---
Test Date: 2024-10-18 14:42:15 Measurements Intervals [place] Rate: 68 P: 26 SD: 130 QRS: 43 QRSD: 81 T: 65 QT: 429 QTc: 458 Interpretive Statements SINUS RHYTHM No previous ECG available for comparison Electronically Signed On 10-19-2024 10:41:29 CDT by Leonardo Yost M.D.
[2024-10-18] MEDS: MORPHINE SULFATE (*CRX) 4 MG/ML INJ IV PUSH (14:29)
[2024-10-18] MEDS: SODIUM CHLORIDE 0.9% IV 1,000 ML 999 ML IV CONT ×2 (14:29→16:31)
--- OUTSIDE RECORDS SUMMARY | 2024-10-18 14:29 | XMS_ITS | Clinical Summary ---
Author Organization [facility] Address [address] [place] [address] Care Team Providers Care Stained Glass Installer Name Role Phone Pardeep Alethea OROZCO Primary Care Provider [phone] Allergies Active Allergy Reactions Criticality Noted Date [...] 05/11/2021 Assessment & Plan (05/01/2023 9:38 AM SHOP SUPERVISOR): This is a chronic condition which is [...] a recent stroke. 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 No changes made to insulin pump. Assessment & Plan (06/28/2021 2:03 PM SHOP SUPERVISOR): This is a chronic condition which is [...] pump. Assessment & Plan (05/11/2021 1:59 PM SHOP SUPERVISOR): This is a chronic condition which is [...] 02/18/2017 Assessment & Plan (05/01/2023 9:38 AM SHOP SUPERVISOR): This is a chronic condition which is [...] prescribed. Assessment & Plan (06/28/2021 2:03 PM SHOP SUPERVISOR): This is a chronic condition which is at goal. Goal is less than 70. Personally reviewed lipid panel. ldl-43 on crestor. Encouraged to eat healthy, include fresh fruits and vegetables daily and avoid eating fried foods more than once per week. Encouraged to take medications as prescribed. Assessment & Plan (05/11/2021 1:12 PM SHOP SUPERVISOR): This is a chronic condition which is [...] 02/18/2017 Assessment & Plan (05/01/2023 9:35 AM SHOP SUPERVISOR): This is a chronic condition which is [...] eye exam. last dilated eye exam was [facility] in [place] Monofilament foot exam completed. protective senses intact [...] worsening and not at goal. Personally reviewed [id number] to 9% not at goal less than [...] which is not at goal. Personally reviewed [id number] to 9% not at goal less than [...] CVA Assessment & Plan (06/28/2021 2:00 PM SHOP SUPERVISOR): This is a chronic condition which is [...] CVA Assessment & Plan (05/11/2021 1:09 PM SHOP SUPERVISOR): This is a chronic condition which is [...] scheduled Assessment & Plan (06/28/2021 2:04 PM SHOP SUPERVISOR): Improving. Continue to see therapy as scheduled Assessment & Plan (05/11/2021 1:10 PM SHOP SUPERVISOR): This is a chronic condition. Seeing speech therapy. Give extra time to allow her to get her words out Hypertension 02/18/2017 05/11/2021 Assessment & Plan (05/11/2021 1:11 PM SHOP SUPERVISOR): This is a chronic condition which is [...] on file Legal Sex Female 4:58 PM SHOP SUPERVISOR Gender Identity Not on file Sexual Orientation Not on file Obstetrics History Last Filed Vital Signs Vital Sign Reading Time Taken Comments Blood Pressure 134/74 05/01/2023 8:59 AM SHOP SUPERVISOR Pulse 68 12/07/2017 5:30 PM CDT Temperature 36.1 C (97 F) 12/07/2017 4:41 PM CDT Respiratory Rate 18 12/07/2017 5:30 PM CDT Oxygen Saturation 92% 12/07/2017 6:00 PM CDT Inhaled Oxygen Concentration - - Weight 82.2 kg (181 lb 3.2 oz) 05/01/2023 8:59 A M SHOP SUPERVISOR Height 154.9 cm (5' 1 ) 05/01/2023 8:59 AM SHOP SUPERVISOR Body Mass Index 34.24 05/01/2023 8:59 AM SHOP SUPERVISOR Plan of Treatment Health Maintenance Due Date [...] HEMOGLOBIN A1C Routine 05/01/2023 9 :11 AM SHOP SUPERVISOR Type 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, with long-term current use of insulin (HCC) DIABETIC EYE EXAM Routine 03/26/2023 COMPREHENSIVE METABOLIC PANEL Routine 12/19/2022 LIPID PANEL Routine 12/19/2022 ALBUMIN CREATININE RATIO, URINE Routine 12/19/2022 from Last 3 Months or Most Recently Relevant to Health Maintenance Results * POCT hemoglobin A1c (05/01/2023 9:11 AM SHOP SUPERVISOR) Hemoglobin A1C, POC 6.5 % Blood 05/01/2023 9:11 AM SHOP SUPERVISOR Harleen Butler NP POINT OF CARE TEST ORDERABLES F [...] Blood 12/19/2022 Historical Provider LAB BLOOD ORDERABLES Garui l Result [facility] * Comprehensive metabolic panel [...] - - [facility] SCRIBED eGFR in NonAfrican Slovenian 51 - - - [facility] Blood 12/19/2022 Historical Provider LAB BLOOD ORDERABLES Gauri l Result [facility] from Last 3 Months or Most Recently Relevant to Health Maintenance Insurance [employer] ACC[employer] CHOICE [employer] Member Subscriber Plan / Payer ( fective 2017-Present) Name:Pravin Pompa Relation to Subscriber:Self Name:Pravin Pompa Payer ID:[id number] (NAIC) Type:BC OTHER Address: [address] [place] [id number] [employer] Care Teams Stained Glass Installer Relationship Specialty Start Date End Date Alethea Roberto NP [address] [place], [place] [address] [address] PCP - General Family Medicine 05/01/23
--- OUTSIDE RECORDS SUMMARY | 2024-10-18 14:29 | XMS_ITS | Encounter Summary ---
Author Organization [facility] Address [address] [place] [id number] Care Team Providers Care Medical Field Representative Name Role Phone Alethea Roberto Unavailable [phone] Alethea Roberto Primary Care Provider [phone] Yvette Cunningham MD Primary Care Provider [phone] Encounter Details Date Type Department Care Team (Late st Contact Info) Description 02/19/2022 [employer] Message Enc [facility] [address] [place] [id number] Ericka Acosta, [facility]- [address] [facility] [place] [address] Visit Follow Up Social History Tobacco Use [...] Sex Assigned at Female 06/16/2024 3:02 PM HEAD WAITER/WAITRESS BANQUET Legal Sex Female 10:13 AM CDT Gender [...] AM PABLOT Kylie Nuñez RN Active * [place] Suicide Severity Rating Scale (Screener/Recent Self-Report) Question [...] Rule Out 04/10/2024 04/10/2024 04/10/2024 12:09 PM HEAD WAITER/WAITRESS BANQUET COVID-19 Rule Out 10/02/2024 10/02/2024 10/02/2024 1:17 PM CDT documented as of this encounter Care Teams Medical Field Representative Relationship Specialty Start Date End Date Alethea Roberto APNP [address] [place] [address] PCP - General NURSE PRACTITIONER 02/18/23 07/07/24 Yvette Cunningham MD [address] [place] [address] PCP - General FAMILY PRACTICE 07/08/24 Alethea Roberto APNP [id number] [place] [address] Nurse Practitioner NURSE PRACTITIONER 03/09/21 documented as of this encounter
--- OUTSIDE RECORDS SUMMARY | 2024-10-18 14:29 | XMS_ITS | Referral Summary ---
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 No changes made to insulin pump. Assessment & Plan (06/28/2021 2:03 PM PHARMACY TECHNICIAN PER DIEM): This is a chronic condition which is [...] pump. Assessment & Plan (05/11/2021 1:59 PM PHARMACY TECHNICIAN PER DIEM): This is a chronic condition which is [...] 02/18/2017 Assessment & Plan (05/01/2023 9:38 AM PHARMACY TECHNICIAN PER DIEM): This is a chronic condition which is [...] prescribed. Assessment & Plan (06/28/2021 2:03 PM PHARMACY TECHNICIAN PER DIEM): This is a chronic condition which is at goal. Goal is less than 70. Personally reviewed lipid panel. ldl-43 on crestor. Encouraged to eat healthy, include fresh fruits and vegetables daily and avoid eating fried foods more than once per week. Encouraged to take medications as prescribed. Assessment & Plan (05/11/2021 1:12 PM PHARMACY TECHNICIAN PER DIEM): This is a chronic condition which is [...] 02/18/2017 Assessment & Plan (05/01/2023 9:35 AM PHARMACY TECHNICIAN PER DIEM): This is a chronic condition which is [...] eye exam. last dilated eye exam was [facility] in [place] Monofilament foot exam completed. protective senses intact [...] worsening and not at goal. Personally reviewed [id number] to 9% not at goal less than [...] which is not at goal. Personally reviewed [id number] to 9% not at goal less than [...] CVA Assessment & Plan (06/28/2021 2:00 PM PHARMACY TECHNICIAN PER DIEM): This is a chronic condition which is [...] CVA Assessment & Plan (05/11/2021 1:09 PM PHARMACY TECHNICIAN PER DIEM): This is a chronic condition which is [...] scheduled Assessment & Plan (06/28/2021 2:04 PM PHARMACY TECHNICIAN PER DIEM): Improving. Continue to see therapy as scheduled Assessment & Plan (05/11/2021 1:10 PM PHARMACY TECHNICIAN PER DIEM): This is a chronic condition. Seeing speech therapy. Give extra time to allow her to get her words out Hypertension 02/18/2017 05/11/2021 Assessment & Plan (05/11/2021 1:11 PM PHARMACY TECHNICIAN PER DIEM): This is a chronic condition which is at goal Goal is <140/90 Personally reviewed labs. B/p - 128/66. Stable on lisinopril. Avoid caffeine, caffeine will raise blood pressure and excessive alcohol consumption. Monitor your weight and B/P. Encouraged to take medications as prescribed. Social History Tobacco Use Types Packs/Day Years Used Date Smoking Tobacco: Former Cigarettes Q uit: 01/10/2020 Tobacco Cessation:Counseling Given: Not Answered Personal Safety Answer Date Recorded Getting School Help Needed Not on file 06/21 Comments No Sex and Gender Information Value Date Recorded Sex Assigned at Not on file Legal Sex Female 4:58 PM PHARMACY TECHNICIAN PER DIEM Gender Identity Not on file Sexual Orientation Not on file Last Filed Vital Signs Vital Sign Reading Time Taken Comments Blood Pressure 134/74 05/01/2023 8:59 AM PHARMACY TECHNICIAN PER DIEM Pulse 68 12/07/2017 5:30 PM CDT Temperature 36.1 C (97 F) 12/07/2017 4:41 PM CDT Respiratory Rate 18 12/07/2017 5:30 PM CDT Oxygen Saturation 92% 12/07/2017 6:00 PM CDT Inhaled Oxygen Concentration - - Weight 82.2 kg (181 lb 3.2 oz) 05/01/2023 8:59 A M PHARMACY TECHNICIAN PER DIEM Height 154.9 cm (5' 1 ) 05/01/2023 8:59 AM PHARMACY TECHNICIAN PER DIEM Body Mass Index 34.24 05/01/2023 8:59 AM PHARMACY TECHNICIAN PER DIEM Plan of Treatment Not on file Procedures Procedure Name Priority Date/Time Associated Diagnosis Comments POCT HEMOGLOBIN A1C Routine 05/01/2023 9 :11 AM PHARMACY TECHNICIAN PER DIEM Type 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, with long-term current use of insulin (HCC) DIABETIC EYE EXAM Routine 03/26/2023 COMPREHENSIVE METABOLIC PANEL Routine 12/19/2022 LIPID PANEL Routine 12/19/2022 ALBUMIN CREATININE RATIO, URINE Routine 12/19/2022 from Last 3 Months or Most Recently Relevant to Health Maintenance Results * POCT hemoglobin A1c (05/01/2023 9:11 AM PHARMACY TECHNICIAN PER DIEM) Hemoglobin A1C, POC 6.5 % Blood 05/01/2023 9:11 AM PHARMACY TECHNICIAN PER DIEM Harleen Butler NP POINT OF CARE TEST [...] - - [facility] SCRIBED eGFR in NonAfrican Indian 51 - - - [facility] Blood 12/19/2022 Historical Provider LAB BLOOD ORDERABLES Guari l Result [facility] from Last 3 Months or Most Recently Relevant to Health Maintenance Insurance [employer] ACCESS CHOICE [employer] [place] [employer] [place] Care Teams Egg Breaking Machine Operator Relationship Specialty Start Date End Date Alethea Roberto NP [address] [place] [address] PCP - General Family Medicine 05/01/23
--- OUTSIDE RECORDS SUMMARY | 2024-10-18 14:29 | XMS_ITS | Clinical Summary ---
Author Organization [facility] Address [address] [address] Care Team Providers Care Control Systems Developer Name Role Phone Alethea Roberto APRN-MORGAN Primary Care Provider [phone] Source Comments [facility],non-owned Affiliates and Associated Physician Practices is amultiple site organization consisting of ambulatory clinics and hospital sitesin [place], [place], [place] and [place]. This disclosure is being madepursuant to the Care Everywhere program and may not contain all information available regarding this patient. Last updated 18.[facility] Allergies Active Allergy Reactions Criticality Noted Date [...] 2 times daily Active Continuous Blood Gluc Manager Wellness (FREESTYLE VIRGEN 14 DAY READER) ROHIT Active [...] daily Active Calcium Carbonate-Vit D-Min (CALCIUM 1200) 2209-1408 MG-UNIT CHEW Take 1 tablet by mouth [...] on file Legal Sex Female 8:31 AM COLD MILL INSPECTOR Gender Identity Not on file Sexual Orientation Not on file Last Filed Vital Signs Vital Sign Reading Time Taken Comments Blood Pressure 101/66 11/22/2021 9:51 AM CDT Pulse 89 11/22/2021 9:51 AM CDT Temperature 36.6 C (97.8 F) 04/18/2021 12:58 PM COLD MILL INSPECTOR Respiratory Rate 12 11/22/2021 9:51 AM CDT Oxygen Saturation 95% 04/18/2021 3:02 PM COLD MILL INSPECTOR Inhaled Oxygen Concentration - - Weight 80.6 kg (177 lb 9.6 oz) 11/22/2021 9:51 A M CDT Height 154.9 cm (5' 1 ) 11/22/2021 9:51 AM CDT Body Mass Index 33.56 11/22/2021 9:51 AM CDT Plan of Treatment Upcoming Encounters Date Type Department Care Team (Late st Contact Info) Description 10/22/2024 1:00 AM CDT Clinical Support [facility] - Cardiology [address] [place] [phone] 11/11/2024 10:00 AM CDT Office Visit [facility] - Neurology [address] [place] [phone] Eleni Gtz PA-C [facility] [facility] [address] [place] [phone] 11/26/2024 1:00 AM CDT Clinical Support [facility] - Cardiology [address] [place] [phone] 12/31/2024 1:00 AM CDT Clinical Support [facility] - Cardiology [address] [place] [phone] 02/04/2025 1:00 AM CDT Clinical Support [facility] - Cardiology [address] [place] [phone] Health Maintenance Due Date Last Done Comments [...] this topic Medical Devices Implanted Type Area Game Developer Device Identifier Shelf Expiration Date Model / Serial / Lot Sys Crd Mntr Rvl Linq Mycare[employer] Ins - [id number] Implanted:Qty : 1 on 04/18/2021 by Maico De La Cruz MD at [facility] Loop Recorder Left: Chest Wall [employer] 01/14/2022 [employer] DISCONTINUED / [id number] / Procedures Procedure Name Priority Date/Time Associated Diagnosis Comments BASIC METABOLIC PANEL (CALCIUM TOTAL) Routine 04/18/2021 3:51 AM COLD MILL INSPECTOR HEMOGLOBIN A1C Add on 04/16/2021 9:35 AM COLD MILL INSPECTOR from Last 3 Months or Most Recently Relevant to Health Maintenance Results * (ABNORMAL) BASIC METABOLIC PANEL (CALCIUM TOTAL) (04/18/2021 3:51 AM COLD MILL INSPECTOR) BUN 7 7 - 26 mg/dL 04/18/2021 5:15 AM [facility] Creatinine 0.80 0.56 - 0.96 mg/dL 04/18/2021 5:15 AM [facility] Sodium 141 136 - 145 mmol/L 04/18/2021 5:15 AM [facility] Potassium 3.2(L) 3.5 - 4.5 mmol/L 04/18/2021 5:15 AM [facility] Chloride 105 98 - 107 mmol/L 04/18/2021 5:15 AM [facility] CO2 21(L) 22 - 29 mmol/L 04/18/2021 5:15 AM [facility] Glucose 185(H) 70 - 115 mg/dL 04/18/2021 5:15 AM [facility] Calcium 9.7 8.4 - 10.2 mg/dL 04/18/2021 5:15 AM [facility] Anion Gap 18 8 - 18 04/18/2021 5:15 AM [facility] BUN/Creatinine Ratio 9 7 - 23 04/18/2021 5:15 AM [facility] Osmolality Calculated 295 270 - 300 mOsm/kg 04/18/2021 5:15 AM [facility] eGFR by CKD-EPI 81(L) >=90 mL/min/1.7 3 m2 04/18/2021 5:15 AM [facility] Blood BLOOD SPECIMEN / Unknown Lab Venipuncture / Unknown 04/18/2021 3:51 AM COLD MILL INSPECTOR 04/18/2021 4:52 AM COLD MILL INSPECTOR us Aaron Hauser MD LAB - CHEMISTRY ORDERABLES Final Result [facility] [address] [place] [address], [facility] [phone] * (ABNORMAL) HEMOGLOBIN A1C (04/16/2021 9:35 AM [facility]) Hemoglobin A1c 7.9(H) 4.4 - 6.3 % 04/16/2021 11:10 AM [facility] Estimated Average Glucose 180 mg/dL 04/16/2021 11:10 AM [facility] Comment: HbA1c Interpretation: Treatment target values recommended by ADA and other clinical organizations should be used to evaluate metabolic control in patients. Treatment Target Values: Normal : < 5.7% Pre-diabetes: 5.7-6.4% Diabetes: Equal to or greater than 6.5% Reference: [place] [employer] Standards of Care in Diabetes -2014 In patients 70 years and older consider HbA1c target range of 7.0-7.5% Reference: Diabetes Mellitus in Older People: Position Statement on behalf of the International Association of Gerontology and Geriatrics (IAGG), the Diabetes Working Republican for Older People (EDWPOP), and the International Task Force of Experts in Diabetes. Akash Saavedra, et al. J [place] [employer] Association. 2012 Test results diagnostic of diabetes should be repeated for confirmation. The Sebia Capillary 2 assay for the measurement of HbA1c is a National Glycohemoglobin Standardization Program (NGSP)certified method. Blood BLOOD SPECIMEN / Unknown Venipuncture / Unknown 04/16/2021 9:35 AM COLD MILL INSPECTOR 04/16/2021 9:40 AM [facility] Aaron Hauser MD LAB - CHEMISTRY ORDERABLES Final Result Performing Organization Address City/[facility]/ZIP Co de Phone Number [facility] [address] [place] [address], [facility] [phone] from Last 3 Months or Most Recently Relevant to Health Maintenance [place] [address] [place] [address] Advance Directives * Full Code (Latest Code Status on File) Date Activated Date Inactivated Comments 04/16/2021 12:01 AM 04/18/2021 5:09 PM Care Teams Control Systems Developer Relationship Specialty Start Date End Date Alethea Roberto APRN[place] [phone] PCP - General 08/25/21
--- OUTSIDE RECORDS SUMMARY | 2024-10-18 14:29 | XMS_ITS | Encounter Summary ---
Author Organization [facility] Address [address] [place] [address] Care Team Providers Care Electronics Technician Apprentice Name Role Phone Jed Gale MD Primary Care Provider [phone] Alethea Roberto Primary Care Provider [phone] Alethea Roberto Unavailable [phone] Alethea Roberto Primary Care Provider [phone] Yvette Cunningham MD Primary Care Provider [phone] Encounter Details Date Type Department Care Team (Late st Contact Info) Description 11/08/2018 Abstract [facility] CONVERSION [address] [place] [address] , Generic Conversion, Social History Tobacco Use Types Packs/Day Years Used Date Smoking Tobacco: Never Assessed Comments Unknown Sex and Gender Information Value Date Recorded Sex Assigned at Female 06/16/2024 3:02 PM MUSIC THERAPY TEACHER Legal Sex Female 10:13 AM CDT Gender Identity Not on file Sexual Orientation Not on file documented as of this encounter Plan of Treatment Not on file documented as of this encounter Visit Diagnoses Not on filedocumented in this encounter Additional Health Concerns Infection Onset Date Last Indicated Resolved Time COVID-19 Rule Out 05/06/2020 05/06/2020 05/06/2020 2:48 PM MUSIC THERAPY TEACHER COVID-19 Rule Out 10/29/2020 10/29/2020 10/29/2020 7:37 PM CDT COVID-19 Rule Out 02/28/2022 02/28/2022 02/28/2022 10:20 AM CDT COVID-19 Rule Out 04/10/2024 04/10/2024 04/10/2024 12:09 PM MUSIC THERAPY TEACHER COVID-19 Rule Out 10/02/2024 10/02/2024 10/02/2024 1:17 PM CDT documented as of this encounter Care Teams Electronics Technician Apprentice Relationship Specialty Start Date End Date Jed Gale MD [address] [place] [phone] PCP - General FAMILY PRACTICE 03/02/19 05/05/20 Alethea Roberto APNP [address] [place] [phone] PCP - General NURSE PRACTITIONER 05/06/20 03/08/21 Alethea Roberto APNP [address] [place] [phone] PCP - General NURSE PRACTITIONER 02/18/23 07/07/24 Yvette Cunningham MD [address] [place] [address] PCP - General FAMILY PRACTICE 07/08/24 Alethea Roberto APNP [address] [place] [phone] Nurse Practitioner NURSE PRACTITIONER 03/09/21 documented as of this encounter
--- OUTSIDE RECORDS SUMMARY | 2024-10-18 14:29 | XMS_ITS | Clinical Summary ---
Author Organization [facility] Address [address] [place] [address] Care Team Providers Care Automotive Heavy Mechanic Name Role Phone PardeepOctaviosaba HOLLANDNP Unavailable [phone] Yvette Cunningham MD Primary Care Provider [phone] Allergies Active Allergy Reactions Criticality Noted Date [...] each Active Calcium Carbonate-Vit D-Min (CALCIUM 1200) 3527-1298 MG-UNIT Chew Tab Chew 1 tablet by [...] Physical deconditioning 04/29/2024 Acute hypoxic respiratory failure (CMS/[facility] HHS/H CC) 04/11/2024 Back pain 08/17/2023 Spinal arachnoid cyst 08/07/2023 Cervical radiculopathy 01/25/2023 Lumbar radiculopathy 12/28/2022 HTN (hypertension) 08/30/2022 HCAP (healthcare-associated pneumonia) Pneumonia 02/28/2022 Closed displaced fracture of shaft of fifth metacarpal bone of right hand, initial encounter 02/19/2022 Pain in right elbow 12/15/2020 Encounters Date Type Department Care Team Description 10/08/2024 8:54 AM CDT - 10/08/2024 11:42 AM CDT Emergency [facility] [address] [place] [address] Melinda Martin MD Back Pain Discharge Disposition: Home or Self Care (Routine Discharge) 10/08/2024 Travel 10/02/2024 11:52 AM CDT - 10/02/2024 4:00 PM CDT Emergency [facility] [address] [place] [address] Melinda Martin MD Leg Pain Discharge Disposition: Home or Self Care (Routine Discharge) 10/02/2024 Travel 09/30/2024 9:11 AM CDT - 09/30/2024 11:59 PM CDT Hospital Encounter [facility] [address] [place] [address] Gilma Castle APNP Kovarik, Ryan A, REMOTE SENSING TECHNICIAN Hip Pain Discharge Disposition: Home or Self Care (Routine Discharge) 09/30/2024 Travel 09/28/2024 9:37 AM CDT - 09/28/2024 11:59 PM CDT Hospital Encounter [facility] [address] [place] [address] Gilma Castle APNP Kovarik, Ryan A, REMOTE SENSING TECHNICIAN Hip Pain Discharge Disposition: Home or Self Care (Routine Discharge) 09/28/2024 Travel 09/22/2024 8:12 AM CDT - 09/22/2024 11:59 PM CDT Hospital Encounter [facility] [address] [place] [address] Jenn Sandoval, PT Hip Pain Discharge Disposition: Home or Self Care (Routine Discharge) 09/22/2024 Travel 09/21/2024 Telephone [facility] [address] [place] [address] Gilma Castle APNP Appointment Request 09/14/2024 9:53 AM CDT - 09/14/2024 11:59 PM CDT Hospital Encounter [facility] [address] [place] [address] Yvette Cunningham MD Discharge Disposition: Home or Self Care (Routine Discharge) 09/14/2024 Travel 07/21/2024 8:30 AM GENERAL ENGINEERING TEACHER - 07/21/2024 11:59 PM GENERAL ENGINEERING TEACHER Hospital Encounter [facility] [address] [place] [address] Kasey Newberry PA Discharge Disposition: Home or Self Care (Routine Discharge) 07/21/2024 8:30 AM GENERAL ENGINEERING TEACHER Office Visit [facility] [address] [facility] [address] [place] [address] Kasey Newberry PA Fracture (DOI:06/09/2024-Clos ed nondisplaced fracture of first metatarsal bone of RIGHT foot) 07/21/2024 Orders Only [place] [id number] [facility] [address] [place] [address] Kasey Newberry PA 07/21/2024 Travel from Last [...] from your doctor or pharmacy? Never 04/11/2024 [facility] Utilities Answer Date Recorded In the past 12 months has [employer], [employer], or water [employer] threatened to shut off services in your [...] often do you attend chur ch or yazidism services? Patient declined 04/11/2024 Do you belong [...] and heating? Not hard at all 04/11/2024 [facility] [place] of Occupat ional Health - Occupational Stress [...] place to sleep or slept in a senior living (including now)? No 08/07/2023 Housing Stability Vital Sign Answer Don e Recorded In the last 12 months, was t here a time when you were not able to pay the mortgage or rent on time? No 04/11/2024 In the past 12 months, how m any times have you moved where you were living? 0 04/11/2024 At any time in the past 12 m [facility], were you homeless or living in a senior living (including now)? No 04/11/2024 Comments No Sex and Gender Information Value Date Recorded Sex Assigned at Female 06/16/2024 3:02 PM GENERAL ENGINEERING TEACHER Legal Sex Female 10:13 AM CDT [...] Gaitan RN Medical Devices Implanted Type Area Warehouse Shift Supervisor Device Identifier Shelf Expiration Date Model / Serial / Lot Agent Hemostatic Surgiflo 8 Ml Kit - [id number] Implanted:Qty: 2 on 08/07/2023 by William Mello MD at [facility] Sealant N/A: Spine Thoracic [employer] 09/30/2024 [id number] / / [id number] Agent Hemostatic Surgiflo 8 Ml Kit - [id number] Implanted:Qty: 1 on 08/07/2023 by William Mello MD at [facility] Sealant N/A: Spine Thoracic [employer] 09/30/2024 [id number] / / [id number] 1.7mm S Locking Plate T, Narrow 10 Holes Implanted:Qty: 1 on 02/21/2022 by Jamil Lyons MD at [facility] Right: Hand [employer] [id number] / / 1.7 X 11 Locking Screw Implanted:Qty: 2 on 02/21/2022 by Jamil Lyons MD at [facility] Right: Hand [employer] [id number] / / 1.7 X 9 Locking Screw Implanted:Qty: 1 on 02/21/2022 by Jamil Lyons MD at [facility] Right: Hand [employer] [id number] / / 1.7 X 7 Locking Screw Implanted:Qty: 2 on 02/21/2022 by Jamil Lyons MD at [facility] Right: Hand [employer] [id number] / / 1.7 X 6 Locking Screw Implanted:Qty: 1 on 02/21/2022 by Jamil Lyons MD at [facility] Right: Hand [employer] [id number] / / Variax 2 Non-Locking Screw 1.7mm X 7mm Implanted:Qty: 1 on 02/21/2022 by Jamil Lyons MD at [facility] Right: Hand [employer] [id number] / / Variax 2 Non-Locking Screw 1.7mm X 8mm Implanted:Qty: 1 on 02/21/2022 by Jamil Lyons MD at [facility] Right: Hand [employer] [id number] / / Vistaseal Fibrin Sealant Implanted:Qty: 1 on 08/07/2023 by William Mello MD at [facility] N/A: Spine Thoracic [employer] [id number] 08/16/2023 [id number] / [id number] / [id number] Explanted Type Area Warehouse Shift Supervisor Device Identifier Shelf Expiration Date Model / Serial / Lot 1.4 X 27mm, Ao Twist Drill Explanted:Qty: 1 on 02/21/2022 by Jamil Lyons MD at [facility] Right: Hand [employer] [id number] / / Procedures Procedure Name Priority Date/Time [...] FOOT RT 3V Routine 07/21/2024 8:51 AM GENERAL ENGINEERING TEACHER Closed nondisplaced fracture of first metatarsal bone of right foot with routine healing, subsequent encounter HEMOGLOBIN, GLYCOSYLATED Routine 04/11/2024 11:15 PM GENERAL ENGINEERING TEACHER HEPATITIS PANEL,ACUTE STAT 08/17/2023 6:53 PM CDT MG SCREENING W SREE JUAN DIGI Routine 03/22/2023 10:16 AM CDT Visit for screening mammogram from Last 3 Months or Most Recently Relevant to Health Maintenance Results * (ABNORMAL) URINALYSIS (10/08/2024 11:01 AM CDT) Only the most recent of2 resultswithin the time period is included. COLOR (U) YELLOW 10/08/2024 11:28 AM CDT [facility] TRANSPARENCY CLEAR 10/08/2024 11:28 AM CDT [facility] SPECIFIC GRAVITY (U) 1.030(H) 1.000 - 1.025 10/08/2024 11:28 AM CDT [facility] Comment:EQUAL TO OR GREATER THAN U PH 5.0 5.0 - 8.0 10/08/2024 11:28 AM CDT [facility] LEUKOCYTES (U) NEGATIVE NEGATIVE 10/08/2024 11:28 AM CDT [facility] NITRITES NEGATIVE NEGATIVE 10/08/2024 11:28 AM CDT [facility] PROTEIN RANDOM (U) 2+(A) NEGATIVE 10/08/2024 11:28 AM CDT [facility] GLUCOSE (U) NEGATIVE NEGATIVE 10/08/2024 11:28 AM CDT [facility] KETONES MG/DL (U) 2+(A) NEGATIVE 10/08/2024 11:28 AM CDT [facility] UROBILINOGEN 0.2 <1.0 EU/DL 10/08/2024 11:28 AM CDT [facility] BLOOD (U) NEGATIVE NEGATIVE 10/08/2024 11:28 AM CDT [facility] WBC/HPF 5-10(A) 0 - 5 /HPF 10/08/2024 11:28 AM CDT [facility] RBC/HPF 0-5 0 - 5 /HPF 10/08/2024 11:28 AM CDT [facility] EPI/LPF FEW /LPF 10/08/2024 11:28 AM CDT [facility] BACTERIA (U) 2+ /HPF 10/08/2024 11:28 AM CDT [facility] OTHER CASTS (U) HYALINE /LPF 11:28 AM CDT [facility] Comment:50-100 BUDDING YEAST PRESENT /HPF 10/08/2024 11:28 AM CDT [facility] BILIRUBIN CONF ICTO (U) NEGATIVE NEGATIVE 10/08/2024 11:28 AM CDT [facility] URINE SPECIMEN OBTAINED BY CLEAN CATCH PROCEDURE / Unknown 10/08/2024 11:01 AM CDT us Melinda Martin MD URINE ORDERABLES Final Result [facility] [address] [place] [address], * CT HEAD WO CON (10/08/2024 10:01 [...] 10:09 AM Narrative 10/08/2024 10:13 AM CDT [address] [place] [address] Examination: CT HEAD WO CON, 10/08/2024 9:44 [...] Procedure Note Nate Aldridge MD - 10/08/[address] [place] [address] Examination: CT HEAD WO CON, 10/08/2024 9:44 [...] - 145 MMOL/L 10/08/2024 9:56 AM CDT [facility] POTASSIUM S/P/B 3.7 3.5 - 5.1 MMOL/L 10/08/2024 9:56 AM CDT [facility] CHLORIDE S/P/B 101 98 - 107 MMOL/L 10/08/2024 9:56 AM [facility] CO2 29.1 21.0 - 32.0 MMOL/L 10/08/2024 9:56 AM [facility] GLUCOSE 222(H) 70 - 99 MG/DL 10/08/2024 9:56 AM [facility] Comment: FASTING GLUCOSE 100 TO 125 MG/DL IS CONSISTENT WITH IMPAIRED FASTING GLUCOSE. FASTING GLUCOSE >125 MG/DL IS CONSISTENT WITH DIABETES. RANDOM GLUCOSE >200 MG/DL WITH HYPERGLYCEMIC SYMPTOMS IS CONSISTENT WITH DIABETES. PER ADA GUIDELINES BUN 13 6 - 24 MG/DL 10/08/2024 9:56 AM [facility] CREATININE S/P/B 1.11(H) 0.55 - 1.02 MG/DL 10/08/2024 9:56 AM [facility] CALCIUM S/P/B 9.5 8.4 - 10.5 MG/DL 10/08/2024 9:56 AM [facility] BILIRUBIN TOTAL S/P/B 0.6 0.2 - 1.0 MG/DL 10/08/2024 9:56 AM [facility] Comment: THIS ASSAY IS NOT RECOMMENDED FOR PATIENTS UNDERGOING TREATMENT WITH ELTROMBOPAG DUE TO THE POTENTIAL FOR FALSELY ELEVATED RESULTS. ALKALINE PHOSPHATASE S/P/B 144(H) 50 - 130 U/L 10/08/2024 9:56 AM [facility] AST 14(L) 15 - 37 U/L 10/08/2024 9:56 AM [facility] ALT 64(H) 14 - 59 U/L 10/08/2024 9:56 AM [facility] TOTAL PROTEIN S/P/B 7.6 6.4 - 8.2 G/DL 10/08/2024 9:56 AM [facility] ALBUMIN S/P/B 3.6 3.4 - 5.0 G/DL 10/08/2024 9:56 AM [facility] ANION GAP 7.9 5.0 - 15.0 MMOL/L 10/08/2024 9:56 AM [facility] OSMOLALITY (CALC) 293 MOSM/KG 05/08/2 025 9:56 AM CDT [facility] Comment:REFERENCE RANGE NOT ESTABLISHED GFR ESTIMATE 57(L) >89 ML/MIN/1. 73 M2 10/08/2024 9:56 AM CDT [facility] GFR NOTES GFR REFERENCE S: 10/08/2024 9:56 AM CDT [facility] Comment: THE ESTIMATED GFR [...] us Melinda Martin MD LABORATORY Final Result [facility] [place] [id number], * (ABNORMAL) CBC W/DIFF AUTOMATED (10/08/2024 9:35 AM CDT) Only the most recent of2 resultswithin the time period is included. WBC 10.96(H) 4.00 - 10.80 x10'3/uL 10/08/2024 9:42 AM CDT [facility] RBC 4.96 4.10 - 5.40 x10'6/uL 10/08/2024 9:42 AM CDT [facility] HGB 12.6 12.0 - 16.0 G/DL 10/08/2024 9:42 AM CDT [facility] HCT 40.4 36.0 - 47.0 % 10/08/2024 9:42 AM CDT [facility] MCV 81.5 78.0 - 100.0 FL 10/08/2024 9:42 AM CDT [facility] MCH 25.4(L) 27.0 - 31.0 PG 10/08/2024 9:42 AM CDT [facility] MCHC 31.2(L) 33.0 - 36.0 G/DL 10/08/2024 9:42 AM CDT [facility] RDW 16.3(H) 11.5 - 14.5 % 10/08/2024 9:42 AM CDT [facility] PLT 329 150 - 350 x10'3/uL 10/08/2024 9:42 AM T [facility] MPV 10.7(H) 7.4 - 10.4 FL 10/08/2024 9:42 AM T [facility] CBC COMMENT NORMAL REFERENCE RANGE NOT ESTABLISHED FOR THE PROPORTIONAL LEUKOCYTE DIFFERENTIAL. 10/08/2024 9:42 AM T [facility] [id number]|2024-10-18 13:49:00|2024-10-18 13:49:00|XMS_ITS|NENA FARLEY|External Medical Summaries|[id number]|" Referral Summary Created on: October 18, 2024 Pravin Pompa : 1965 Sex: Female Author Organization [facility] Address [address] [place] [address] Care Team Providers Care Automotive Heavy Mechanic Name Role Phone Alethea Roberto NP Primary Care Provider Allergies Active Allergy Reactions [...] 05/11/2021 Assessment & Plan (05/01/2023 9:38 AM GENERAL ENGINEERING TEACHER): This is a chronic condition which is [...] a recent stroke. 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 No changes made to insulin pump. Assessment & Plan (06/28/2021 2:03 PM GENERAL ENGINEERING TEACHER): This is a chronic condition which is [...] pump. Assessment & Plan (05/11/2021 1:59 PM GENERAL ENGINEERING TEACHER): This is a chronic condition which is stable, controlled, uncontrolled with hyperglycemia, improving, but not at goal. Download reviewed. Type of insulin pump- Zukis 630G Pump settings : Basal 2units IC [...] 02/18/2017 Assessment & Plan (05/01/2023 9:38 AM GENERAL ENGINEERING TEACHER): This is a chronic condition which is [...] prescribed. Assessment & Plan (06/28/2021 2:03 PM GENERAL ENGINEERING TEACHER): This is a chronic condition which is at goal. Goal is less than 70. Personally reviewed lipid panel. ldl-43 on crestor. Encouraged to eat healthy, include fresh fruits and vegetables daily and avoid eating fried foods more than once per week. Encouraged to take medications as prescribed. Assessment & Plan (05/11/2021 1:12 PM GENERAL ENGINEERING TEACHER): This is a chronic condition which is [...] 02/18/2017 Assessment & Plan (05/01/2023 9:35 AM GENERAL ENGINEERING TEACHER): This is a chronic condition which is [...] eye exam. last dilated eye exam was [facility] in [place] Monofilament foot exam completed. protective senses intact [...] worsening and not at goal. Personally reviewed F3q-sypslyngx to 9% not at goal less than [...] which is not at goal. Personally reviewed K0k-hswffczzx to 9% not at goal less than [...] CVA Assessment & Plan (06/28/2021 2:00 PM GENERAL ENGINEERING TEACHER): This is a chronic condition which is not at goal. Personally reviewed A1c-8.1% not at goal less than 7% Personally reviewed blood sugar -220, not at goal 80-180 Medication- Continue Medtronic insulin pump. Continue Trulicity 1.5mg weekly Monitor blood sugar continuously with [employer]style jennie 2 Encouraged annual eye exam. Monofilament [...] CVA Assessment & Plan (05/11/2021 1:09 PM GENERAL ENGINEERING TEACHER): This is a chronic condition which is [...] scheduled Assessment & Plan (06/28/2021 2:04 PM GENERAL ENGINEERING TEACHER): Improving. Continue to see therapy as scheduled Assessment & Plan (05/11/2021 1:10 PM GENERAL ENGINEERING TEACHER): This is a chronic condition. Seeing speech therapy. Give extra time to allow her to get her words out Hypertension 02/18/2017 05/11/2021 Assessment & Plan (05/11/2021 1:11 PM GENERAL ENGINEERING TEACHER): This is a chronic condition which is [...] on file Legal Sex Female 4:58 PM GENERAL ENGINEERING TEACHER Gender Identity Not on file Sexual Orientation Not on file Last Filed Vital Signs Vital Sign Reading Time Taken Comments Blood Pressure 134/74 05/01/2023 8:59 AM GENERAL ENGINEERING TEACHER Pulse 68 12/07/2017 5:30 PM CDT Temperature 36.1 C (97 F) 12/07/2017 4:41 PM CDT Respiratory Rate 18 12/07/2017 5:30 PM CDT Oxygen Saturation 92% 12/07/2017 6:00 PM CDT Inhaled Oxygen Concentration - - Weight 82.2 kg (181 lb 3.2 oz) 05/01/2023 8:59 A M GENERAL ENGINEERING TEACHER Height 154.9 cm (5' 1 ) 05/01/2023 8:59 AM GENERAL ENGINEERING TEACHER Body Mass Index 34.24 05/01/2023 8:59 AM GENERAL ENGINEERING TEACHER Plan of Treatment Not on file Procedures Procedure Name Priority Date/Time Associated Diagnosis Comments POCT HEMOGLOBIN A1C Routine 05/01/2023 9 :11 AM GENERAL ENGINEERING TEACHER Type 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, with long-term current use of insulin (HCC) DIABETIC EYE EXAM Routine 03/26/2023 COMPREHENSIVE METABOLIC PANEL Routine 12/19/2022 LIPID PANEL Routine 12/19/2022 ALBUMIN CREATININE RATIO, URINE Routine 12/19/2022 from Last 3 Months or Most Recently Relevant to Health Maintenance Results * POCT hemoglobin A1c (05/01/2023 9:11 AM GENERAL ENGINEERING TEACHER) Pathologist [facility] Hemoglobin A1C, POC 6.5 % Blood 05/01/2023 9:11 AM GENERAL ENGINEERING TEACHER Harleen Butler NP POINT OF CARE TEST ORDERABLES F inal Result * Diabetic Eye Exam (03/26/2023) 03/26/2023 Historical Provider MD HEALTH MAINTENANCE Final Result * Albumin Creatinine Ratio, Urine (12/19/2022) [facility] SCRIBED Creatinine, Urine 54.6 - - - [facility] SCRIBED Microalbumin 12.1 - - - [facility] SCRIBED Microalb/Creat Ratio 22 [facility] Urine 12/19/2022 Historical Provider LAB URINE ORDERABLES Gauri l Result [facility] * Lipid panel (12/19/2022) [facility] SCRIBED Cholesterol, Total 138 - - - [facility] SCRIBED HDL 66 - - - [facility] SCRIBED LDL 46 - - - [facility] SCRIBED Triglycerides 157 - - - [facility] Blood 12/19/2022 Historical Provider LAB BLOOD ORDERABLES Gauri l Result [facility] * Comprehensive metabolic panel (12/19/2022) Pathologist [facility] SCRIBED Sodium 133 - - - mmol/L [...] - - [facility] SCRIBED eGFR in NonAfrican Nepalese 51 - - - [facility] Blood 12/19/2022 Historical Provider LAB BLOOD ORDERABLES Gauri napier Result [facility] from Last 3 Months or Most Recently Relevant to Health Maintenance Insurance [facility] [email or web address] [facility] Care Teams Automotive Heavy Mechanic Relationship Specialty Start Date End Date Alethea Roberto NP [address] [place] [address] PCP - General Family Medicine 05/01/23 "
[2024-10-18] MEDS: ONDANSETRON INJ 4 MG/2 ML VIAL IV PUSH ×2 (14:30→20:32)
--- OUTSIDE RECORDS SUMMARY | 2024-10-18 14:30 | XMS_ITS | Encounter Summary ---
Author Organization [facility] Address [address] [place] [address] Care Team Providers Care Fight Manager Name Role Phone Alethea Roberto Unavailable [phone] Alethea Roberto Primary Care Provider [phone] Yvette Cunningham MD Primary Care Provider [phone] Encounter Details Date Type Department Care Team (Late st Contact Info) Description 06/17/2024 SlideShare Message Enc [facility] [address] [place] [address] [address] [place] [address] Kasey Newberry PA [address] [place] [address] Visit Follow Up Social History Tobacco Use [...] from your doctor or pharmacy? Never 04/11/2024 [facility] Utilities Answer Date Recorded In the past [...] week 04/11/2024 How often do you attend [facility] or worship services? Patient declined 04/11/2024 Do you belong to any clubs o r organizations such as sikhism groups, unions, fraternal or athletic groups, or [...] and heating? Not hard at all 04/11/2024 [facility] of Occupat ional Health - Occupational Stress [...] place to sleep or slept in a custodial (including now)? No 08/07/2023 Housing Stability Vital Sign Answer Don e Recorded In the last 12 months, was t here a time when you were not able to pay the mortgage or rent on time? No 04/11/2024 In the past 12 months, how m any times have you moved where you were living? 0 04/11/2024 At any time in the past 12 m [facility], were you homeless or living in a custodial (including now)? No 04/11/2024 Comments No Sex and Gender Information Value Date Recorded Sex Assigned at Female 06/16/2024 3:02 PM VENUE COORDINATOR Legal Sex Female 10:13 AM CDT Gender [...] documented as of this encounter Care Teams Fight Manager Relationship Specialty Start Date End Date Alethea Roberto [place] [address] PCP - General NURSE PRACTITIONER 02/18/23 07/07/24 Yvette Cunningham MD [facility] [place] [address] PCP - General FAMILY PRACTICE 07/08/24 Alethea Roberto APNP [address] [place] [address] Nurse Practitioner NURSE PRACTITIONER 03/09/21 documented as of this encounter
--- OUTSIDE RECORDS SUMMARY | 2024-10-18 14:30 | XMS_ITS | Encounter Summary ---
Author Organization [facility] Address [address] [place] [address] Care Team Providers Care Truck Shop Supervisor Name Role Phone Alethea Roberto Primary Care Provider [phone] Alethea Roberto Unavailable [phone] Alethea Roberto Primary Care Provider Yvette Cunningham MD Primary Care Provider [phone] Encounter Details Date Type Department Care Team (Late st Contact Info) Description 12/13/2020 [email or web address] Message Enc [facility] [address], [address] [address] Jamil Lyons MD [address] [place] [address] Visit Follow Up Social History Tobacco [...] Sex Assigned at Female 06/16/2024 3:02 PM GINNER Legal Sex Female 10:13 AM CDT Gender [...] Rule Out 04/10/2024 04/10/2024 04/10/2024 12:09 PM GINNER COVID-19 Rule Out 10/02/2024 10/02/2024 10/02/2024 1:17 PM CDT documented as of this encounter Care Teams Truck Shop Supervisor Relationship Specialty Start Date End Date Alethea Roberto APNP [address] [place] [address] PCP - General NURSE PRACTITIONER 05/06/20 03/08/21 [facility] [place] [address] PCP - General NURSE PRACTITIONER 02/18/23 07/07/24 Yvette Cunningham MD [address] [place] [address] PCP - General FAMILY PRACTICE 07/08/24 Alethea Roberto APNP [address] [place] [address] Nurse Practitioner NURSE PRACTITIONER 03/09/21 documented as of this encounter
[2024-10-18 15:43] LABS: Basophils Absolute Auto 0.07 K/mm3 (0.00-0.10); Basophils Percent Auto 0.8 % (0.0-1.0); Eosinophils Absolute Auto 0.08 K/mm3 (0.02-0.50); Eosinophils Percent Auto 0.9 % (1.0-6.0); Hematocrit 39.6 % (35.0-49.0); Immature Granulocyte Absolute 0.06 K/mm3 (0.00-0.00); Immature Granulocyte Percent A 0.7 % (0.0-0.0); Mean Corpuscular HGB Conc 30.3 g/dL (32-36); Mean Corpuscular Hemoglobin 25.1 pg (27.0-31.0); Mean Corpuscular Volume 82.7 fL (78.0-102.0); Mean Platelet Volume 12.2 fl (9.2-11.8); Monocytes Absolute Auto 0.68 K/mm3 (0.10-0.90); Monocytes Percent Auto 7.6 % (2.0-11.0); Neutrophils Absolute Auto 6.41 K/mm3 (1.70-7.20); Platelet Count Result 293 K/mm3 (150-420); Red Blood Count 4.79 M/mm3 (4.20-5.40); Red Cell Distribution Width 16.6 % (11.6-14.4); White Blood Count 8.9 K/mm3 (4.8-10.8)
[2024-10-18] MEDS: diphenhydrAMINE HCl INJ 50 MG/ML VIAL 25 MG IV PUSH ×2 (15:59→22:37)
[2024-10-18 16:00] LABS: Alanine Aminotransferase 53 U/L (14-59); Albumin Level 3.3 g/dL (3.4-5.0); Alkaline Phosphatase 136 U/L (46-116); Anion Gap 10 mmol/L (4-12); Aspartate Amino Transferase 14 U/L (15-37); Bilirubin,Total 0.5 mg/dL (0.00-1.00); Blood Urea Nitrogen 11 mg/dL (7-18); Calcium 8.7 mg/dL (8.5-10.1); Carbon Dioxide 24 mmol/L (21-32); Chloride 99 mmol/L (98-108); Estimated CRCL calculation 41 ml/min; Estimated Glomerular Filt Rate 45; Lipase 16 U/L (16-77); Magnesium 1.6 mg/dL (1.8-2.4); Osmolality Calculated 292 mOsm/kg (285-295); Potassium 3.3 mmol/L (3.5-5.1); Sodium 133 mmol/L (136-145); Total Protein 6.6 g/dL (6.4-8.2); Troponin I 8.5 ng/L (0.00-60.4)
[2024-10-18] MEDS: MORPHINE SULFATE (*CRX) 2 MG/ML INJ IV PUSH (16:00)
[2024-10-18 16:02] LABS: HCO3 VBG 20.7 mEq/l (24.0-30.0); PCO2 VBG 37.7 mmHg (42.0-48.0); PO2 VBG 29.2 mmHg (35.0-45.0); pH VBG 7.36 (7.33-7.43)
[2024-10-18 16:03] LABS: Device ROOM AIR
[2024-10-18 16:04] LABS: Ethanol < 3 mg/dL (0-6); Glucose 402 mg/dL (70-99)
[2024-10-18 16:08] LABS: Lactic Acid Reflex 3.5 mmol/L (0.4-2.0)
[2024-10-18 16:11] LABS: Thyroid Stimulating Hormone 0.32 uIU/mL (0.36-3.74)
[2024-10-18 16:12] LABS: Add Urine Microscopic? YES; Appearance Urine Clear (Clear); Bilirubin Urine Negative (Negative); Blood Urine Trace-intact (Negative); Color Urine Light Yellow (Yellow); Glucose Urine UA 3+ (Negative); Ketones Urine 1+ (Negative); Leukocyte Esterase Ur Negative LEU/UL (Negative); Nitrate Urine Negative (Negative); Protein Urine 1+ (Negative); Urobilinogen Urine 0.2 mg/dL (0.2-1.0)
[2024-10-18 16:18] LABS: Amphetamine Screen Urine Negative (Negative); Barbiturate Screen Urine Negative (Negative); Benzodiazepines Screen Urine Negative (Negative); Cannabinoid Screen Urine Positive (Negative); Cocaine Screen Urine Negative (Negative); Methadone Screen Urine Negative (Negative); Opiate Screen Urine Positive (Negative); Phencyclidine Screen Urine Negative (Negative)
[2024-10-18 16:19] LABS: Amorphous Sediment Urine Few; RBC Urine 0-2 /hpf (0-2); Squamous Epithelial Cell Urine Few /hpf (Few)
[2024-10-18] MEDS: INSULIN HUMAN REGULAR (*BKC) 1,000 UNITS/10 ML VIAL 10 UNITS IV PUSH ×2 (16:33→18:02)
[2024-10-18] MEDS: KCL 20 MEQ/SW 100 ML 100 ML 50 MEQ IVPB (16:35)
[2024-10-18 17:13] LABS: Glucose Point of Care 335 mg/dl (65-105)
[2024-10-18 17:39] LABS: Reflex Lactic Acid Yes or No Add Lactic
[2024-10-18] MEDS: LORazepam INJ (*CRX) 2 MG/ML VIAL 1 MG IV PUSH (18:22)
[2024-10-18] MEDS: MAGNESIUM SULF 2 GM/WATER 50ML 2 GM/50 ML BAG IVPB (18:27)
--- NOTE | 2024-10-18 19:48 | ADMGEN ---
This patient, Pravin Pompa, was admitted to 2nd Floor Room 203-1. Patient/family oriented to hospital policies and general routines including ID bracelet, bed and alarms, visiting hours, pain management, procedures, bathroom and other care routines, personal items, smoking policy, room service/diet, and visiting hours. Information on how to activate the Rapid Response Team has been discussed. Patient/Family are encouraged to report perceived risks to care and to ask questions if they do not understand what they are told or what they should do.
[2024-10-18 20:00] LABS: Glucose Point of Care 251 mg/dl (65-105)
--- NOTE | 2024-10-18 20:15 | PC.NURSE ---
Pt had emesis of 100ml green liquid
[2024-10-18] MEDS: SALMET XINAFT/FLUTIC PROPIN 500 MCG/50 MCG INH CAP 1 PUFF INHALATION (20:31)
[2024-10-18] MEDS: ROSUVASTATIN 10 MG TABLET 20 MG PO (20:32)
[2024-10-18] MEDS: MELATONIN 5 MG TABLET 10 MG PO (20:33)
[2024-10-18] MEDS: PANTOPRAZOLE 40 MG TABLET PO (20:33)
[2024-10-18] MEDS: INSULIN GLARGINE (*BKC) 1,000 UNITS/10 ML VIAL 10 UNITS SUB-Q (20:42)
--- NOTE | 2024-10-18 21:30 | PC.NURSE ---
Patient had large emesis on herself and the bed. Green liquid.
[2024-10-18] MEDS: LORazepam INJ (*CRX) 2 MG/ML VIAL 0.5 MG IV PUSH (22:27)
[2024-10-18 22:40] LABS: Lactic Acid 2.2 mmol/L (0.4-2.0)
--- NOTE | 2024-10-18 22:40 | PC.NURSE ---
Patient had 100 then 75ml of green liquid emesis. Ativan and Benadryl given.
[2024-10-18] MEDS: SODIUM CHLORIDE 0.9% IV 1,000 ML 100 ML IV CONT (23:10)
--- NOTE | 2024-10-18 23:25 | PC.NURSE ---
Patient resting in bed. No further emesis noted.
[2024-10-19] VITALS: BP 139/65; PULSE 84; RESP 16; TEMP 36.7; O2SAT 98
--- NOTE | 2024-10-19 04:21 | PC.NURSE ---
Patient has had no further emesis. Patient sleeping. Call light in reach. Bed alarm on.
[2024-10-19 07:49] LABS: Glucose Point of Care 250 mg/dl (65-105)
[2024-10-19 08:00] VITALS: BP 116/61; PULSE 93; RESP 18; TEMP 36.4; O2SAT 95
[2024-10-19] MEDS: ONDANSETRON INJ 4 MG/2 ML VIAL IV PUSH (08:04)
[2024-10-19] MEDS: lisinopriL 10 MG TABLET 30 MG PO (08:07)
[2024-10-19] MEDS: ENOXAPARIN 40 MG/0.4 ML SYRINGE SUB-Q (08:07)
[2024-10-19] MEDS: FLUoxetine HCL 20 MG CAPSULE 60 MG PO (08:08)
[2024-10-19] MEDS: amLODIPine BESYLATE 5 MG TABLET 10 MG PO (08:09)
[2024-10-19] MEDS: FUROSEMIDE 20 MG TABLET PO (08:09)
[2024-10-19 08:10] VITALS: PULSE 93
[2024-10-19] MEDS: buPROPion HCL XL (24 HR) 150 MG TABCR 300 MG PO (08:10)
[2024-10-19] MEDS: PANTOPRAZOLE 40 MG TABLET PO (08:10)
[2024-10-19] MEDS: METOPROLOL SUCCINATE EXT REL 50 MG TABCR PO (08:10)
[2024-10-19] MEDS: ASPIRIN 81 MG CHEWABLE TABLET PO (08:11)
[2024-10-19] MEDS: SALMET XINAFT/FLUTIC PROPIN 500 MCG/50 MCG INH CAP 1 PUFF INHALATION (08:11)
[2024-10-19] MEDS: SODIUM CHLORIDE 0.9% IV 1,000 ML 100 ML IV CONT (08:15)
[2024-10-19] MEDS: INSULIN HUMAN LISPRO (*BKC) 1,000 UNITS/10 ML VIAL SUB-Q ×2 (08:16→11:38)
[2024-10-19 09:33] LABS: Hematocrit 37.3 % (35.0-49.0); Hemoglobin 11.3 g/dL (12.0-15.0); Mean Corpuscular HGB Conc 30.3 g/dL (32-36); Mean Corpuscular Hemoglobin 25.2 pg (27.0-31.0); Mean Corpuscular Volume 83.3 fL (78.0-102.0); Mean Platelet Volume 11.3 fl (9.2-11.8); Platelet Count Result 308 K/mm3 (150-420); Red Blood Count 4.48 M/mm3 (4.20-5.40); Red Cell Distribution Width 17.2 % (11.6-14.4); White Blood Count 13.9 K/mm3 (4.8-10.8)
[2024-10-19 10:01] LABS: Alanine Aminotransferase 45 U/L (14-59); Alkaline Phosphatase 110 U/L (46-116); Anion Gap 10 mmol/L (4-12); Aspartate Amino Transferase < 10 U/L (15-37); Bilirubin,Total 0.5 mg/dL (0.00-1.00); Blood Urea Nitrogen 6 mg/dL (7-18); Calcium 8.3 mg/dL (8.5-10.1); Carbon Dioxide 28 mmol/L (21-32); Chloride 102 mmol/L (98-108); Estimated CRCL calculation 42 ml/min; Estimated Glomerular Filt Rate 46; Glucose 352 mg/dL (70-99); Magnesium 1.7 mg/dL (1.8-2.4); Osmolality Calculated 301 mOsm/kg (285-295); Potassium 3.4 mmol/L (3.5-5.1); Sodium 140 mmol/L (136-145); Total Protein 6.4 g/dL (6.4-8.2)
[2024-10-19 10:09] LABS: Hemoglobin A1C 8.7 % (<5.7)
--- NOTE | 2024-10-19 11:00 | P.SS_ITS ---
Same Day Admit/Disch: HPI History of Present Illness Chief complaint: NAUSEA VOMITING HYPERGLYCEMIA Narrative: Pravin Pompa is a 59 year old female Who presented to the emergency department with complaints of nausea and vomiting. Patient reports some is again about 2 weeks prior at which time she had went to a no other local emergency department and she was diagnosed with enteritis. Patient reports a past medical history of colitis, diabetes, CVA, chronic diarrhea. In the emergency department CT abdomen showed likely enteritis recommended follow-up CT abdomen for resolution, hypokalemia and hypo magnesium all other labs unremarkable in vitals were stable except for her blood sugar which was 402. patient states she recently had her insulin pump removed and has been trying to control it with sliding scale insulin at home but has been running high. In the emergency department a attempted to provide oral intake at which time patient became nauseous and vomited she was admitted to the medical unit for IV fluids for dehydration and treatment for nausea and vomiting enteritis. patient denied any chest pain, shortness a breath, fever, chills, abdominal pain acute was negative for COVID/RSV/ influenza. [facility] Past Medical History Medical History Hemorrhoids GERD (gastroesophageal reflux disease) Diabetes Torticollis Depression with suicidal ideation CVA (cerebral vascular accident) Dyslipidemia Hypertension Surgical History Surgical History Hx of cholecystectomy Family History Family History Other Unknown family medical history Social History Social History Smoking status: Former smoker Tobacco type: cigarettes Alcohol intake: former Substance use: current Substance use type: marijuana Do You Feel Safe in your Home?: Yes Lack of Transportation: No Lack of Food: Never True Current Housing: I Have Housing Concerned About Future Housing: No Difficulty Paying Gas/Electric Bills: No Difficulty Paying for Meds: No Currently Unemployed: No Education: High School Diploma/GED Difficulty w/ Childcare or Family Care: No Spiritual care concerns: No Same Day Admit/Disch: Med Pre-admit Medications Home Medications Medication Instructions Recorded Confirmed Type albuterol sulfate 90 mcg/actuation 2 puff inhalation Q4-5H PRN 04/14/21 10/18/24 History aerosol inhaler Shortness Of Breath bupropion HCl 300 mg 24 hr tablet, 300 mg PO DAILY 04/14/21 10/18/24 History extended release cyclobenzaprine 10 mg tablet 10 mg PO TID PRN Muscle Spasm 04/14/21 10/18/24 History fluoxetine 20 mg capsule 60 mg PO DAILY 04/14/21 10/18/24 History furosemide 20 mg tablet 20 mg PO DAILY 04/14/21 10/18/24 History insulin aspart U-100 100 unit/mL 1 sliding scale dose subcut 04/14/21 10/18/24 History subcutaneous solution (Novolog USEASDIRECTD U-100 Insulin aspart) lisinopril 30 mg tablet 30 mg PO DAILY 04/14/21 10/18/24 History melatonin 10 mg tablet 10 mg PO HS 04/14/21 10/18/24 History rosuvastatin 20 mg tablet 20 mg PO HS 04/14/21 10/18/24 History clonazepam 1 mg tablet 1 mg PO BID PRN Anxiety 02/16/22 10/18/24 History amlodipine 10 mg tablet 10 mg PO DAILY 10/18/24 10/18/24 History aspirin 81 mg chewable tablet 81 mg PO DAILY 10/18/24 10/18/24 History (Aspirin Childrens) calcium carbonate (Calcium 500) 500 mg PO DAILY 10/18/24 10/18/24 History fluticasone 500 mcg-salmeterol 50 1 inh inhalation Q12H 10/18/24 10/18/24 History mcg/dose blistr powdr for inhalation (Wixela Inhub) hydrocodone 5 mg-acetaminophen 325 1 tablet PO Q6H PRN pain 10/18/24 10/18/24 History mg tablet methocarbamol 500 mg tablet 500 mg PO Q8H PRN muscle spasm 10/18/24 10/18/24 History metoprolol succinate 50 mg 50 mg PO DAILY 10/18/24 10/18/24 History tablet,extended release 24 hr amoxicillin 875 mg-potassium 1 tablet PO Q12H #14 tabs 10/19/24 Rx clavulanate 125 mg tablet insulin glargine 100 unit/mL (3 10 unit (0.1 mL) subcut QPM #15 mL 10/19/24 Rx mL) subcutaneous pen (Lantus Solostar U-100 Insulin) ondansetron 4 mg disintegrating 4 mg PO Q8H PRN nausea and 10/19/24 Rx tablet vomiting #30 tabs pantoprazole 40 mg tablet,delayed 40 mg PO Q12HR #60 tabs 10/19/24 Rx release Review of Systems Review of Systems All systems reviewed & are unremarkable except as noted in HPI and below Exam Const: General: comfortable and no acute distress HENMT: Face/Nose/Sinus: Normal nares present Mouth: Yes moist mucous membranes Eyes: General: appearance normal, both eyes and all related structures Pupils: Equal, round and reactive pupils present Neck: Neck: supple and no JVD Resp: Effort & Inspection: normal respiratory effort Auscultation: clear to auscultation bilaterally Cardio: Rate: regular rate Rhythm: regular rhythm GI: GI Palp: Yes Soft to palpation Auscultation: normal bowel sounds Skin: General skin exam: normal color and no rashes or lesions noted Wounds: no wounds Neuro: General: gait normal Speech: normal speech Motor exam (neuro): 5/5 motor strength present throughout Sensory Exam: normal sensation Extrem: General: normal to inspection Psych: Mental Status: mental status grossly normal Affect: normal affect DS: Data Data Completed and Pending Labs on day of discharge: Labs from last 24 hours 10/19/24 10/19/24 10/18/24 09:28 07:42 22:05 WBC 13.9 H RBC 4.48 Hgb 11.3 L Hct 37.3 MCV 83.3 MCH 25.2 L MCHC 30.3 L RDW 17.2 H Plt Count 308 MPV 11.3 Immature Gran % (Auto) Neut % (Auto) Lymph % (Auto) [place] % (Auto) Eos % (Auto) Baso % (Auto) Lymph # (Auto) [place] # (Auto) Eos # (Auto) Baso # (Auto) Abs Immat Gran (auto) Absolute Neuts (auto) Absolute Nucleated RBC Nucleated RBC % VBG pH VBG pCO2 VBG pO2 VBG HCO3 O2 Delivery Device O2 Liters/Min Sodium 140 Potassium 3.4 L Chloride 102 Carbon Dioxide 28 Anion Gap 10 BUN 6 L Creatinine 1.19 H Estim Creat Clear Calc 42 Estimated GFR 46 L Glucose 352 H POC Capillary Glucose 250 H Hemoglobin A1c 8.7 H Calculated Osmolality 301 H Lactic Acid 2.2 H Calcium 8.3 L Magnesium 1.7 L Total Bilirubin 0.5 AST < 10 L ALT 45 Alkaline Phosphatase 110 Troponin I Total Protein 6.4 Albumin 3.0 L Lipase TSH Urine Color Urine Appearance Urine pH Ur Specific [place] Urine Protein Urine Glucose (UA) Urine Ketones Ur Blood (Man) Urine Nitrate Urine Bilirubin Urine Urobilinogen Leukocyte Esterase Rfl Urine RBC Ur Squamous Epith Cells Amorphous Sediment Urine Opiates Screen Urine Methadone Screen Ur Barbiturates Screen Ur Phencyclidine Scrn Ur Amphetamine Screen U Benzodiazepines Scrn Urine Cocaine Screen U Cannabinoids Screen Ethyl Alcohol 10/18/24 10/18/24 10/18/24 19:55 17:11 15:20 WBC RBC Hgb Hct MCV MCH MCHC RDW Plt Count MPV Immature Gran % (Auto) Neut % (Auto) Lymph % (Auto) [place] % (Auto) Eos % (Auto) Baso % (Auto) Lymph # (Auto) [place] # (Auto) Eos # (Auto) Baso # (Auto) Abs Immat Gran (auto) Absolute Neuts (auto) Absolute Nucleated RBC Nucleated RBC % VBG pH 7.36 VBG pCO2 37.7 L VBG pO2 29.2 L VBG HCO3 20.7 L O2 Delivery Device Room air O2 Liters/Min 0.0 Sodium 133 L Potassium 3.3 L Chloride 99 Carbon Dioxide 24 Anion Gap 10 BUN 11 Creatinine 1.22 H Estim Creat Clear Calc 41 Estimated GFR 45 L Glucose 402 H* POC Capillary Glucose 251 H 335 H Hemoglobin A1c Calculated Osmolality 292 Lactic Acid Calcium 8.7 Magnesium 1.6 L Total Bilirubin 0.5 AST 14 L ALT 53 Alkaline Phosphatase 136 H Troponin I 8.5 Total Protein 6.6 Albumin 3.3 L Lipase 16 TSH 0.32 L Urine Color Light yellow Urine Appearance Clear Urine pH 6.0 Ur Specific [place] 1.010 Urine Protein 1+ H Urine Glucose (UA) 3+ H Urine Ketones 1+ H Ur Blood (Man) Trace-intact H Urine Nitrate Negative Urine Bilirubin Negative Urine Urobilinogen 0.2 Leukocyte Esterase Rfl Negative Urine RBC 0-2 Ur Squamous Epith Cells Few Amorphous Sediment Few H Urine Opiates Screen Positive A Urine Methadone Screen Negative Ur Barbiturates Screen Negative Ur Phencyclidine Scrn Negative Ur Amphetamine Screen Negative U Benzodiazepines Scrn Negative Urine Cocaine Screen Negative U Cannabinoids Screen Positive A Ethyl Alcohol < 3 05/18/25 05/18/25 15:19 13:54 WBC 8.9 RBC 4.79 Hgb 12.0 Hct 39.6 MCV 82.7 MCH 25.1 L MCHC 30.3 L RDW 16.6 H Plt Count 293 MPV 12.2 H Immature Gran % (Auto) 0.7 H Neut % (Auto) 72.0 H Lymph % (Auto) 18.0 [place] % (Auto) 7.6 Eos % (Auto) 0.9 L Baso % (Auto) 0.8 Lymph # (Auto) 1.60 [place] # (Auto) 0.68 Eos # (Auto) 0.08 Baso # (Auto) 0.07 Abs Immat Gran (auto) 0.06 H Absolute Neuts (auto) 6.41 Absolute Nucleated RBC 0.00 Nucleated RBC % 0.0 VBG pH VBG pCO2 VBG pO2 VBG HCO3 O2 Delivery Device O2 Liters/Min Sodium Potassium Chloride Carbon Dioxide Anion Gap BUN Creatinine Estim Creat Clear Calc Estimated GFR Glucose POC Capillary Glucose 427 H Hemoglobin A1c Calculated Osmolality Lactic Acid 3.5 H Calcium Magnesium Total Bilirubin AST ALT Alkaline Phosphatase Troponin I Total Protein Albumin Lipase TSH Urine Color Urine Appearance Urine pH Ur Specific [place] Urine Protein Urine Glucose (UA) Urine Ketones Ur Blood (Man) Urine Nitrate Urine Bilirubin Urine Urobilinogen Leukocyte Esterase Rfl Urine RBC Ur Squamous Epith Cells Amorphous Sediment Urine Opiates Screen Urine Methadone Screen Ur Barbiturates Screen Ur Phencyclidine Scrn Ur Amphetamine Screen U Benzodiazepines Scrn Urine Cocaine Screen U Cannabinoids Screen Ethyl Alcohol Imaging Radiologist's impression: CLINICAL INDICATION: Abdominal pain - Central umbilical pain of approximately 2 days to 2 weeks duration COMPARISON: 02/16/2022. TECHNIQUE: Multiple contiguous axial images of the abdomen and pelvis were performed following the administration of with 100 mL Omnipaque-350 intravenous contrast The dose-length product (DLP) was 615.06 mGy-cm. Automated exposure control and iterative reconstruction technique were employed. FINDINGS/OBSERVATIONS: Visualized lower thorax: The bilateral lung bases are clear. The heart is of normal size, without pericardial effusion. Small hiatal hernia is present, with thickening of the distal esophagus. Liver: The liver demonstrates homogeneous enhancement and is not enlarged. Gallbladder and biliary system: The gallbladder is surgically absent. Pancreas: The pancreas enhances homogeneously without ductal dilatation. Spleen: The spleen enhances homogeneously and is not enlarged. Kidneys: The bilateral kidneys enhance symmetrically without hydronephrosis or renal calculi. Adrenal glands: Unremarkable. Gastrointestinal tract: Significant mural thickening and surrounding inflammatory changes identified within the distal transverse and proximal descending colon. Appendix: The appendix is not definitively visualized. However, no pericecal inflammatory change is identified suggest the presence of acute appendicitis. Vasculature: Unremarkable. Lymph nodes: No pathologically enlarged or morphologically suspicious lymph nodes within the retroperitoneum or at the root of the mesentery. Pelvic structures: The bladder is minimally distended, and otherwise unremarkable. The uterus is retroverted and retroflexed, with a small amount of surrounding free fluid, likely physiologic. Body wall and musculoskeletal: Small fat-containing umbilical hernia. No significant degenerative disease within the lower thoracic or lumbosacral spine. IMPRESSION: Findings within the distal transverse and proximal descending colon for which an enteritis is suspected. Follow-up to resolution is recommended as a malignancy may have a similar appearance. History: Altered mental status PROCEDURE: CT head without contrast. COMPARISON: 04/14/2021 TECHNIQUE: Axial imaging of the head performed from the skull base to the vertex without IV contrast. Sagittal and coronal reformations obtained. DLP: 605 mGy-cm FINDINGS: The ventricles are normal in size, shape and position. There is no mass, mass effect or midline shift. Encephalomalacia and gliosis are identified within the distribution of the left middle cerebral artery, suggesting prior cerebral infarction. There is no abnormal extra-axial fluid collection or acute/subacute intracranial hemorrhage. Visualized paranasal sinuses are clear. The mastoid air cells are well aerated. No acute displaced fractures within the overlying cranium. Impression: No acute intracranial hemorrhage or suspicious mass effect. Findings consistent with prior cerebral infarction within the left middle cerebral artery, as detailed above. DS: Summary Hospital Course Reason for hospitalization: enteritis/ hyperglycemia Hospital Course: Admission: Pravin Pompa is a 59 year old female Who presented to the emergency department with complaints of nausea and vomiting. Patient reports some is again about 2 weeks prior at which time she had went to a no other local emergency department and she was diagnosed with enteritis. Patient reports a past medical history of colitis, diabetes, CVA, chronic diarrhea. In the emergency department CT abdomen showed likely enteritis recommended follow-up CT abdomen for resolution, hypokalemia and hypo magnesium all other labs unremarkable in vitals were stable except for her blood sugar which was 402. patient states she recently had her insulin pump removed and has been trying to control it with sliding scale insulin at home but has been running high. In the emergency department a attempted to provide oral intake at which time patient became nauseous and vomited she was admitted to the medical unit for IV fluids for dehydration and treatment for nausea and vomiting enteritis. patient denied any chest pain, shortness a breath, fever, chills, abdominal pain acute was negative for COVID/RSV/ influenza. Hospital Course: patient was treated overnight with IV fluids, antiemetics in her diet was advanced as tolerated. Following day patient denied any further nausea or vomiting denied any abdominal pain. She did have mild leukocytosis likely reactive to her recent nausea vomiting however at discharge I did discharge on or oral Augmentin for enteritis/colitis. Patient's blood sugars had improved she had been started on 10 units of long-acting Lantus and SSI. Patient with overall improvement of symptoms however I did encourage immediate marijuana cessation which was positive on her UDS informed her of can avoid hyper emesis which could be underlying cause of her symptoms. Patient reports she does follow with a GI doctor outpatient and is scheduled for follow-up EGD and colonoscopy. Patient also reported she has a follow-up with her compensation associate to have her insulin pump replaced but I did discharge her on Lantus long-acting 10 units instructed her to continue with her sliding scale insulin. All electrolytes were replenished including potassium and magnesium patient at time of discharge had resolution of symptoms and was able to tolerate oral intake I did advise patient to advance diet slowly as tolerated preferably bland foods and to monitor her blood sugars closely at home. patient ambulatory on own and was discharged home with family. Status at Discharge Functional status at discharge: independent ambulation Overall status at discharge: patient is back to baseline Time Spent with Patient Time attestation: Total time spent providing and/or coordinating discharge services: Time spent: Greater than 30 minutes DS: Admitting Diagnosis Discharge Date 10/19/2024 Admitting Diagnosis enteritis/ hyperglycemia DS: Discharge Diagnosis Discharge Diagnosis (1) Acute hyperglycemia: Code(s): R73.9 - Hyperglycemia, unspecified Status: Acute (2) Enteritis: Code(s): K52.9 - Noninfective gastroenteritis and colitis, unspecified Status: Acute Plan Disposition: Discharge to home Discharge Plan Discharge Attending physician on discharge: Devendra Fortune Consulting providers: Trina Thomas; Leonardo Yost; Harleen Arciniega Discharging Clinician: Trina Thomas Anticipated Discharge Date/Time: 10/19/24 10:51 Patient Disposition: Home Activity: as tolerated Diet: as tolerated and diabetic Discharge Instructions: Enteritis/colitis: * and prescribe oral antibiotics please take as indicated complete even if feeling better * advance diet as tolerated recommend bland diet until symptoms resolve * I saw prescribed Zofran for nausea * I encourage oral hydration * follow-up with GI as scheduled for further evaluation * recommend marijuana cessation diabetes/ hyperglycemia * I went ahead and prescribed long-acting Lantus until you receive your insulin pump please take as indicated and monitor blood sugars at home * recommend diabetic diet * follow-up with your compensation associate as scheduled Patient Instructions: Antibiotic Form, Amoxicillin/Clavulanate Potassium (By mouth), Ondansetron (By mouth), Pantoprazole (By mouth), Insulin Glargine (By injection), Fall Prevention for Older Adults (DC), Acute Nausea and Vomiting (DC) Patient Language: Yi Stand Alone Forms: General Discharge Information Follow-up/Referrals: UNKNOWN,DOCTOR [Primary Care Provider] - Keep Reg. Scheduled Appt. (GI, primary, and compensation associate) Discharge Medications: New pantoprazole 40 mg Tablet,Delayed Release (Dr/Ec) 40 mg PO Q12HR Qty: 60 0RF amoxicillin-pot clavulanate 875-125 mg tablet 1 tablet PO Q12H Qty: 14 0RF ondansetron 4 mg tablet,disintegrating 4 mg PO Q8H PRN (Reason: nausea and vomiting) Qty: 30 0RF insulin glargine [Lantus Solostar U-100 Insulin] 100 unit/mL (3 mL) insulin pen 10 unit subcut QPM Qty: 15 0RF Continued cyclobenzaprine 10 mg tablet 10 mg PO TID PRN (Reason: Muscle Spasm) lisinopril 30 mg tablet 30 mg PO DAILY furosemide 20 mg tablet 20 mg PO DAILY albuterol sulfate 90 mcg/actuation HFA aerosol inhaler 2 puff INHALATION Q4-5H PRN (Reason: Shortness Of Breath) fluoxetine 20 mg capsule 60 mg PO DAILY rosuvastatin 20 mg tablet 20 mg PO HS bupropion HCl 300 mg tablet extended release 24 hr 300 mg PO DAILY melatonin 10 mg Tablet 10 mg PO HS amlodipine 10 mg tablet 10 mg PO DAILY fluticasone propion-salmeterol [Wixela Inhub] 500-50 mcg/dose blister with device 1 inh INHALATION Q12H hydrocodone-acetaminophen 5-325 mg tablet 1 tablet PO Q6H PRN (Reason: pain) methocarbamol 500 mg tablet 500 mg PO Q8H PRN (Reason: muscle spasm) aspirin [Aspirin Childrens] 81 mg tablet,chewable 81 mg PO DAILY calcium carbonate [Calcium 500] 500 mg calcium (1,250 mg) tablet,chewable 500 mg PO DAILY metoprolol succinate 50 mg tablet extended release 24 hr 50 mg PO DAILY clonazepam 1 mg tablet 1 mg PO BID PRN (Reason: Anxiety) Held insulin aspart U-100 [Novolog U-100 Insulin aspart] 100 unit/mL Solution 1 sliding scale dose SUBCUT USEASDIRECTD Hold Instructions: Resume on 10/23/24. Rx Instructions: pt has insulin pump pre set. [id number] 2.20 units/hr [id number] 1.90 units/hr ICR:7 ISF:25 TARGET:100-110 Discontinued omeprazole 20 mg capsule,delayed release(DR/EC) 20 mg PO BID Date of admission: 10/18/24 18:30 Primary Care Provider: UNKNOWN,DOCTOR Admitting Provider: Devendra Fortune Attending physician on admission: Devendra Fortune Condition: Improved Quality VTE Prophylaxis VTE prophylaxis: mechanical ordered -Patient's previous records reviewed on admission -ER notes reviewed in detail on admission -discussed all findings and current treatment plan with patient/Family/POA -Consultations reviewed for recommendations -Patient's disposition for safe discharge discussed with family independence case manager Dictation performed by in3Depth direct speech recognition software, therefore copier and printer field technician variants and typographical errors may occur. Hospitalist MIPS Advance Care Plan I have confirmed that the patient's Advanced Care Plan is present, code status is documented, or surrogate decision maker is listed in patient medical record.: Yes Medication Reconciliation I have utilized all available resources to obtain, update and review the patients current medications (includes all prescriptions, OTC, herbals, cannabis, and nutritional supplements).: Yes The patient is not eligible for med reconciliation; the patient is in a emergent medical situation where delaying treatment would jeopardize the patients health.: No Heart Failure (Exclusion) Patient has history of Heart Transplant or Left Ventricular Assistive Device?: No IF YES, STOP HERE Heart Failure (Qualifier) Patient has current or prior documentation of LVEF less than or equal to 40%, or mod/servere depressed LVSF?: No IF NO, STOP HERE
[2024-10-19] MEDS: MAGNESIUM SULF 2 GM/WATER 50ML 2 GM/50 ML BAG IVPB (11:09)
[2024-10-19] MEDS: POTASSIUM CHLORIDE 20 MEQ PACKET (FOR LIQUID) 40 MEQ PO (11:10)
[2024-10-19 11:41] LABS: Glucose Point of Care 315 mg/dl (65-105)
--- NOTE | 2024-10-19 13:40 | PC.NURSE ---
Discharge instructions given to patient and patient's . Both voiced understanding. Personal belongings sent home with patient . Patient left unit in w/c accompanied by nurse. Patient left hospital grounds in privately owned vehicle.
--- NOTE | 2024-10-20 10:25 | PC.NURSE ---
Discharge Call Back made at this time. Unable to leave VM r/t no identification on message.
== END 2024-10-19 13:40 | disposition home or self-care (01) ==
LOC: CHSED 14:28 → CHS2ND 18:34
PROVIDERS: Nurse Practitioner Family; Admitting Provider Internal Medicine; Emergency Provider Family Medicine; Visit Provider Internal Medicine
DX: K52.9 Noninfective gastroenteritis and colitis, unspecified (principal); E11.65 Type 2 diabetes mellitus with hyperglycemia; K21.9 Gastro-esophageal reflux disease without esophagitis; E78.5 Hyperlipidemia, unspecified; I10 Essential (primary) hypertension; Z87.891 Personal history of nicotine dependence; F32.A Depression, unspecified; Z79.4 Long term (current) use of insulin; Z79.51 Long term (current) use of inhaled steroids; Z79.82 Long term (current) use of aspirin; Z79.899 Other long term (current) drug therapy; Z88.2 Allergy status to sulfonamides; Z91.040 Latex allergy status; Z90.49 Acquired absence of other specified parts of digestive tract
CPT/HCPCS: 36415; 70450; 74177; 80053; 80307; 81001; 82077; 82803; 82948; 83036; 83605; 83690; 83735; 84443; 84484; 85025; 85027; 93005; 96361; 96365; 96366; 96372; 96375; 96376; 99285; A9270; G0378; J1200; J1650; J1815; J2060; J2270; J2405; J3475; J3480; J7030; Q9967

== ENCOUNTER 2024-11-14 08:15 | Emergency (ER) | payer BC, SELFPAY ==
[2024-11-14] VITALS (32 sets, daily range): BP systolic 116–152; BP diastolic 56–88; PULSE 81–103; RESP 12–20; TEMP 36.5–37; O2SAT 91–100
--- NOTE | ~2024-11-14 | XR_ITS ---
XR ankle RT min 3V 11/14/2024 09:55 Indication: Postreduction right ankle fracture Procedure: 3 views right ankle Comparison: 11/14/2024 Findings: Partial reduction of displaced bimalleolar fracture. Medial malleolar fracture is comminute d. Moderate diffuse soft tissue swelling. There is persistent lateral translation of the talus with r espect to the tibia. Impression: 1: Partial reduction displaced bimalleolar fracture. Reviewed, dictated and finalized at location [facility]. Impression: 1: Partial reduction displaced bimalleolar fracture.
--- NOTE | ~2024-11-14 | XR_ITS ---
XR ankle RT min 3V 11/14/2024 08:29 Indication: Right ankle pain after fall Procedure: 4 views right ankle Comparison: No prior studies for comparison. Findings: There are displaced bimalleolar fractures with lateral subluxation of the talus with respec t to the tibia. Moderate diffuse soft tissue swelling. Impression: 1: Displaced bimalleolar fracture. Reviewed, dictated and finalized at location [facility]. Impression: 1: Displaced bimalleolar fracture.
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
--- OUTSIDE RECORDS SUMMARY | 2024-11-14 08:17 | XMS_ITS | Clinical Summary ---
Author Organization [facility] Address [address] [place] [address] Care Team Providers Care Watch Guard Gate Name Role Phone Pardeep Alethea OROZCO Primary Care Provider [phone] Allergies Active Allergy Reactions Criticality Noted Date [...] 05/11/2021 Assessment & Plan (05/01/2023 9:38 AM MEAT LUGGER): This is a chronic condition which is [...] a recent stroke. 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 No changes made to insulin pump. Assessment & Plan (06/28/2021 2:03 PM MEAT LUGGER): This is a chronic condition which is [...] pump. Assessment & Plan (05/11/2021 1:59 PM MEAT LUGGER): This is a chronic condition which is [...] 02/18/2017 Assessment & Plan (05/01/2023 9:38 AM MEAT LUGGER): This is a chronic condition which is [...] prescribed. Assessment & Plan (06/28/2021 2:03 PM MEAT LUGGER): This is a chronic condition which is at goal. Goal is less than 70. Personally reviewed lipid panel. ldl-43 on crestor. Encouraged to eat healthy, include fresh fruits and vegetables daily and avoid eating fried foods more than once per week. Encouraged to take medications as prescribed. Assessment & Plan (05/11/2021 1:12 PM MEAT LUGGER): This is a chronic condition which is [...] 02/18/2017 Assessment & Plan (05/01/2023 9:35 AM MEAT LUGGER): This is a chronic condition which is [...] eye exam. last dilated eye exam was [facility] in [place] Monofilament foot exam completed. protective senses intact [...] worsening and not at goal. Personally reviewed [id number]-xuykdfixs to 9% not at goal less than 7% Personally reviewed blood sugar -129, not at goal 80-180 Medication- Continue Medtronic insulin pump. continue Trulicity 3mg weekly Monitor blood sugar continuously with Surefire Socialstyle jennie 2 Encouraged annual eye exam. Monofilament [...] which is not at goal. Personally reviewed [id number] to 9% not at goal less than [...] CVA Assessment & Plan (06/28/2021 2:00 PM MEAT LUGGER): This is a chronic condition which is [...] CVA Assessment & Plan (05/11/2021 1:09 PM MEAT LUGGER): This is a chronic condition which is [...] scheduled Assessment & Plan (06/28/2021 2:04 PM MEAT LUGGER): Improving. Continue to see therapy as scheduled Assessment & Plan (05/11/2021 1:10 PM MEAT LUGGER): This is a chronic condition. Seeing speech therapy. Give extra time to allow her to get her words out Hypertension 02/18/2017 05/11/2021 Assessment & Plan (05/11/2021 1:11 PM MEAT LUGGER): This is a chronic condition which is [...] on file Legal Sex Female 4:58 PM MEAT LUGGER Gender Identity Not on file Sexual Orientation Not on file Obstetrics History Last Filed Vital Signs Vital Sign Reading Time Taken Comments Blood Pressure 134/74 05/01/2023 8:59 AM MEAT LUGGER Pulse 68 12/07/2017 5:30 PM CDT Temperature 36.1 C (97 F) 12/07/2017 4:41 PM CDT Respiratory Rate 18 12/07/2017 5:30 PM CDT Oxygen Saturation 92% 12/07/2017 6:00 PM CDT Inhaled Oxygen Concentration - - Weight 82.2 kg (181 lb 3.2 oz) 05/01/2023 8:59 A M MEAT LUGGER Height 154.9 cm (5' 1) 05/01/2023 8:59 AM MEAT LUGGER Body Mass Index 34.24 05/01/2023 8:59 AM MEAT LUGGER Plan of Treatment Health Maintenance Due Date [...] 2024 09/06/2020, 08/09/2020 Foot Exam 05/01/2024 05/01/2023, 0802/2023, 10/13/2021, Additional history exists Influenza Vaccine (Season Ended) 2025 04/17/20, 05/25/2020 Dilated Eye Exam 03/26/2025 03/26/2023, 12/29/2020 Procedures Procedure Name Priority Date/Time Associated Diagnosis Comments POCT HEMOGLOBIN A1C Routine 05/01/2023 9 :11 AM MEAT LUGGER Type 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, with long-term current use of insulin (HCC) DIABETIC EYE EXAM Routine 03/26/2023 COMPREHENSIVE METABOLIC PANEL Routine 12/19/2022 LIPID PANEL Routine 12/19/2022 ALBUMIN CREATININE RATIO, URINE Routine 12/19/2022 from Last 3 Months or Most Recently Relevant to Health Maintenance Results * POCT hemoglobin A1c (05/01/2023 9:11 AM MEAT LUGGER) Hemoglobin A1C, POC 6.5 % Blood 05/01/2023 9:11 AM MEAT LUGGER Harleen Butler NP POINT OF CARE TEST ORDERABLES F inal Result * Diabetic Eye Exam (03/26/2023) 03/26/2023 Historical Provider HEALTH MAINTENANCE Final Result * Albumin Creatinine Ratio, Urine (12/19/2022) SCRIBED Creatinine, Urine 54.6 - - - [facility] SCRIBED Microalbumin 12.1 - - - [facility] SCRIBED Microalb/Creat Ratio 22 [facility] Urine 12/19/2022 Historical Provider LAB URINE ORDERABLES Gauri karthikeyan Result [facility] * Lipid panel (12/19/2022) SCRIBED Cholesterol, Total 138 - - - [facility] SCRIBED HDL 66 - - - [facility] SCRIBED LDL 46 - - - [facility] SCRIBED Triglycerides 157 - - - [facility] Blood 12/19/2022 Historical Provider LAB BLOOD ORDERABLES Gauri l Result Performing Organization Address [facility]/ZIP Co de Phone Number [facility] * Comprehensive metabolic panel (12/19/2022) SCRIBED [...] - - [facility] SCRIBED eGFR in NonAfrican Kittitian 51 - - - [facility] Blood 12/19/2022 Result [facility] Historical Provider LAB BLOOD ORDERABLES Gauri l Result Performing Organization Address [facility]/ZIP Co de Phone Number [facility] from Last 3 Months or Most Recently Relevant to Health Maintenance Insurance [place] Care Teams Watch Guard Gate Relationship Specialty Start Date End Date Alethea Roberto NP [address] [place] [address] PCP - General Family Medicine 05/01/23
--- OUTSIDE RECORDS SUMMARY | 2024-11-14 08:17 | XMS_ITS | Referral Summary ---
Author Organization [facility] Address [address] [place] [address] Care Team Providers Care Platemaker Name Role Phone Pardeep Alethea OROZCO Primary Care Provider [phone] Allergies Active Allergy Reactions Criticality Noted Date [...] 05/11/2021 Assessment & Plan (05/01/2023 9:38 AM ICING AND GLAZE MAKER): This is a chronic condition which is [...] a recent stroke. 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 No changes made to insulin pump. Assessment & Plan (06/28/2021 2:03 PM ICING AND GLAZE MAKER): This is a chronic condition which is [...] pump. Assessment & Plan (05/11/2021 1:59 PM ICING AND GLAZE MAKER): This is a chronic condition which is [...] 02/18/2017 Assessment & Plan (05/01/2023 9:38 AM ICING AND GLAZE MAKER): This is a chronic condition which is [...] prescribed. Assessment & Plan (06/28/2021 2:03 PM ICING AND GLAZE MAKER): This is a chronic condition which is at goal. Goal is less than 70. Personally reviewed lipid panel. ldl-43 on crestor. Encouraged to eat healthy, include fresh fruits and vegetables daily and avoid eating fried foods more than once per week. Encouraged to take medications as prescribed. Assessment & Plan (05/11/2021 1:12 PM ICING AND GLAZE MAKER): This is a chronic condition which is [...] 02/18/2017 Assessment & Plan (05/01/2023 9:35 AM ICING AND GLAZE MAKER): This is a chronic condition which is [...] eye exam. last dilated eye exam was [facility] in [place] Monofilament foot exam completed. protective senses intact [...] worsening and not at goal. Personally reviewed [id number] to 9% not at goal less than 7% Personally reviewed blood sugar -129, not at goal 80-180 Medication- Continue Medtronic insulin pump. continue Trulicity 3mg weekly Monitor blood sugar continuously with Drivestyle jennie 2 Encouraged annual eye exam. Monofilament [...] which is not at goal. Personally reviewed [id number]-[id number] to 9% not at goal less than [...] CVA Assessment & Plan (06/28/2021 2:00 PM ICING AND GLAZE MAKER): This is a chronic condition which is [...] CVA Assessment & Plan (05/11/2021 1:09 PM ICING AND GLAZE MAKER): This is a chronic condition which is [...] scheduled Assessment & Plan (06/28/2021 2:04 PM ICING AND GLAZE MAKER): Improving. Continue to see therapy as scheduled Assessment & Plan (05/11/2021 1:10 PM ICING AND GLAZE MAKER): This is a chronic condition. Seeing speech therapy. Give extra time to allow her to get her words out Hypertension 02/18/2017 05/11/2021 Assessment & Plan (05/11/2021 1:11 PM ICING AND GLAZE MAKER): This is a chronic condition which is [...] on file Legal Sex Female 4:58 PM ICING AND GLAZE MAKER Gender Identity Not on file Sexual Orientation Not on file Last Filed Vital Signs Vital Sign Reading Time Taken Comments Blood Pressure 134/74 05/01/2023 8:59 AM ICING AND GLAZE MAKER Pulse 68 12/07/2017 5:30 PM CDT Temperature 36.1 C (97 F) 12/07/2017 4:41 PM CDT Respiratory Rate 18 12/07/2017 5:30 PM CDT Oxygen Saturation 92% 12/07/2017 6:00 PM CDT Inhaled Oxygen Concentration - - Weight 82.2 kg (181 lb 3.2 oz) 05/01/2023 8:59 A M ICING AND GLAZE MAKER Height 154.9 cm (5' 1) 05/01/2023 8:59 AM ICING AND GLAZE MAKER Body Mass Index 34.24 05/01/2023 8:59 AM ICING AND GLAZE MAKER Plan of Treatment Not on file Procedures Procedure Name Priority Date/Time Associated Diagnosis Comments POCT HEMOGLOBIN A1C Routine 05/01/2023 9 :11 AM ICING AND GLAZE MAKER Type 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, with long-term current use of insulin (HCC) DIABETIC EYE EXAM Routine 03/26/2023 COMPREHENSIVE METABOLIC PANEL Routine 12/19/2022 LIPID PANEL Routine 12/19/2022 ALBUMIN CREATININE RATIO, URINE Routine 12/19/2022 from Last 3 Months or Most Recently Relevant to Health Maintenance Results * POCT hemoglobin A1c (05/01/2023 9:11 AM ICING AND GLAZE MAKER) Hemoglobin A1C, POC 6.5 % Blood 05/01/2023 9:11 AM ICING AND GLAZE MAKER Harleen Butler NP POINT OF CARE TEST [...] Provider LAB BLOOD ORDERABLES Gauri napier Result Performing Organization Address [facility]/ZIP Co de Phone Number [facility] * Comprehensive [...] Most Recently Relevant to Health Maintenance [place] Care Teams Platemaker Relationship Specialty Start [place] [address] [place], [place] [address], [place] [id number] PCP - General Family Medicine 05/01/23
--- OUTSIDE RECORDS SUMMARY | 2024-11-14 08:17 | XMS_ITS | Clinical Summary ---
Author Organization [facility] Address [address] [place] [address] Care Team Providers Care Concrete Curer Name Role Phone Yvette Cunningham MD Primary Care Provider [phone] Source Comments [facility],non-owned Affiliates and Associated Physician Practices is amultiple site organization consisting of ambulatory clinics and hospital sitesin [place], [place], [place] and [place]. This disclosure is being madepursuant to the Care Everywhere program and may not contain all information available regarding this patient. Last updated 18.[facility] Allergies Active Allergy Reactions Criticality Noted Date Comments Latex Other 04/16/2021 Throat swelling Sulfa Drugs Rash Medium 04/16/2021 Medications * Be aware that medications may not be up to date on this document. Alwaysverify current medications with the patient. Melatonin 10 MG Take 2 tablets by mouth at bedtime Active omeprazole (PRILOSEC) 20 MG capsule Take 20 mg by mouth 2 times daily Active lisinopril (PRINIVIL; ZESTRIL) 30 MG tablet [...] mg by mouth 3 times daily Active Calcium Carbonate-Vit D-Min (CALCIUM 1200) 4922-5269 MG-UNIT CHEW Take 1 tablet by mouth once daily Active cyclobenzaprin e (FLEXERIL) 10 MG tablet Take 10 mg by mouth 3 times daily as needed for Muscle Spasms Active aspirin (ASPIRIN) 81 MG chew tablet Take 1 (one) tablet by mouth once daily 100 tablet 3 04/19/20 21 Active Insulin Aspart (NOVOLOG SC) Via insulin [...] CS24 Take by mouth at bedtime Active OLANZapine (ZyPREXA) 5 MG tablet Take 1 (one) tablet by mouth at bedtime Active oxyCODONE-acet aminophen (Percocet) 5-325 MG tablet Take 1 (one) tablet by mouth every 12 hours as needed for Pain Active acetaminophen (Tylenol) 500 MG tablet Take 1 (one) tablet by mouth every 6 hours as needed for Fever or Pain Maximum allowable Acetaminophen amount = 4 Grams (4000 mg) / 24 hours. Active fluticasone-sa lmeterol (Advair/Wixela ) 250-50 MCG/ACT inhaler Inhale 1 (one) puff by mouth 2 times daily Active albuterol HFA (Proventil; Ventolin; Proair) 108 (90 Base) MCG/ACT inhaler Inhale 2 (two) puffs by mouth every 6 hours as needed Active pantoprazole EC (Protonix) 40 MG tablet Take 1 (one) tablet by mouth 2 times daily Active Continuous Blood Gluc Sensor (FREESTYLE VIRGEN 14 DAY SENSOR) MISC 025 Discontin ued(List Clean-Up) Continuous Blood Gluc Certified Nuclear Medicine Technologist (FREESTYLE VIRGEN 14 DAY READER) ROHIT 025 Discontin ued(List Clean-Up) BUPROPION HCL ER, XL, PO Take 300 mg by mouth once daily 025 Discontin ued(List Clean-Up) Active Problems Problem Noted Date Diagnosed Date Aphasia 04/16/2021 Type 2 diabetes, controlled, with neuropathy Assessment & Plan (11/11/2024 1:50 PM CDT): At goal -continue current tx Hypertension 04/16/2021 Assessment & Plan (11/11/2024 1:50 PM CDT): -BP at goal -f/u with pcp for monitoring and adjustment Acute ischemic stroke 04/14/2021 Encounters Date Type Department Care Team Description 11/13/2024 Telephone [facility] - Cardiology [address] [place] [address] [place] [phone] Unique Valdivia RN Loop Recorder 11/11/2024 10:00 AM CDT Office Visit [facility] - Neurology [address] [place] [address], [place] [phone] Eleni Gtz PA-C Cerebrovascular accident (CVA), unspecified mechanism (HCC) (Primary Dx); Primary hypertension; Type 2 diabetes, controlled, with neuropathy (HCC); Moderate episode of recurrent major depressive disorder (HCC); Hallucinations; Cognitive dysfunction 11/11/2024 Travel 10/28/2024 Telephone [facility] - Cardiology [address], [facility] [address] [place] [address] Provider, No Pcp Question; Loop Recorder from Last 3 Months Immunizations Immunization Administration Dates Next Due INFLUENZA VACCINE, QUADR. (F LUZONE; FLULAVAL; FLUARIX; AFLURIA QUADRIVALENT; 6MO+), 0.5 ML (IIV4) 04/17/2021 Social History Tobacco Use Types Packs/Day Years Used Date Smoking Tobacco: Former Cigarettes Q uit: 06/09/2019 Smokeless Tobacco: Never Tobacco Cessation:Counseling Given: Not Answered AUDIT-C Answer Date Recorded Q1: How often [...] on file Legal Sex Female 8:31 AM HARNESS PLACER Gender Identity Not on file Sexual Orientation Not on file Last Filed Vital Signs Vital Sign Reading Time Taken Comments Blood Pressure 116/74 11/11/2024 9:37 AM CDT Pulse 96 11/11/2024 9:37 AM CDT Temperature 36.6 C (97.8 F) 04/18/2021 12:58 PM HARNESS PLACER Respiratory Rate 14 11/11/2024 9:37 AM CDT Oxygen Saturation 95% 04/18/2021 3:02 PM HARNESS PLACER Inhaled Oxygen Concentration - - Weight 77.6 kg (171 lb) 11/11/2024 9:37 AM CDT Height 154.9 cm (5' 1) 11/22/2021 9:51 AM CDT Body Mass Index 32.31 11/22/2021 9:51 AM CDT Plan of Treatment Upcoming Encounters Date Type Department Care Team (Late st Contact Info) Description 11/26/2024 1:00 AM CDT Clinical Support [facility] - Cardiology [address] [facility], [address] [address] 12/31/2024 1:00 AM CDT Clinical Support [facility] - Cardiology [address] [facility] [facility], [address] [address] 02/04/2025 1:00 AM CDT Clinical Support [facility] - Cardiology [address] [facility], [address] [address] Health Maintenance Due Date Last Done Comments COLOGUARD (AGES 45-75) - COLON CA SCREENING 1963 COLON MONITORING 1963 COLONOSCOPY - COLON CA SCREENING 1963 CT COLONOGRAPHY - COLON CA SCREENING 1963 Colorectal Cancer Screening 1963 FIT - COLON CA SCREENING 1963 FLEX SIG - COLON CA SCREENING 1963 HIV SCREENING 1978 DTAP/TDAP/TD VACCINES (1 - Tdap) 1982 PNEUMOCOCCAL VACCINE 50+ (1 of 2 - PCV) 1982 PAP SMEAR 02/06/1984 ZOSTER VACCINE (1 of 2) 2013 DIABETES RETINOPATHY SCREENING 04/16/2021 DIABETES-FOOT EXAM WITH MONOFILAMENT 04/16/2021 Respiratory Syncytial Virus (RSV) Vaccine Pt: or over 60 yrs (1 - Risk 60-74 years 1-dose series) 2023 COVID-19 VACCINE ( season) 2024 DEPRESSION SCREENING 06/03/2024 DIABETES - URINE PROTEIN SCREENING 06/03/2024 04/11/2024, 06/28/2021 DIABETES-HGB A1C 10/09/2024 04/11/2024, , 01/29/2023, Additional history exists INFLUENZA VACCINE (Season Ended) 2025 04/17/2021 MAMMOGRAM 03/22/2025 03/22/2023, 03/04, 12/21/2021 DIABETES-SERUM CREATININE 11/05/20252024, 11/05/2024, 11/04/2024, Additional history exists HEPATITIS C SCREENING Completed [...] this topic Medical Devices Implanted Type Area Profile Trimmer Device Identifier Shelf Expiration Date Model / Serial / Lot Sys Crd Mntr Rvl Linq [employer] Ins - [id number] Implanted:Qty : 1 on 04/18/2021 by Maico De La Cruz MD at [facility] Loop Recorder Left: Chest Wall Medtronic [employer] 01/14/2022 LINQSYS DISCONTINUED / [id number] / Procedures Procedure Name Priority Date/Time Associated Diagnosis Comments BASIC METABOLIC PANEL (CALCIUM TOTAL) Routine 04/18/2021 3:51 AM HARNESS PLACER HEMOGLOBIN A1C Add on 04/16/2021 9:35 AM HARNESS PLACER from Last 3 Months or Most Recently Relevant to Health Maintenance Results * (ABNORMAL) BASIC METABOLIC PANEL (CALCIUM TOTAL) (04/18/2021 3:51 AM [facility]) BUN 7 7 - 26 mg/dL 04/18/2021 5:15 AM [facility] Creatinine 0.80 0.56 - 0.96 mg/dL 04/18/2021 5:15 AM [facility] Sodium 141 136 - 145 mmol/L 04/18/2021 5:15 AM [facility] Potassium 3.2(L) 3.5 - 4.5 mmol/L 04/18/2021 5:15 AM [facility] Chloride 105 98 - 107 mmol/L 04/18/2021 5:15 AM [facility] CO2 21(L) 22 - 29 mmol/L 04/18/2021 5:15 AM [facility] Glucose 185(H) 70 - 115 mg/dL 04/18/2021 5:15 AM [facility] Calcium 9.7 8.4 - 10.2 mg/dL 04/18/2021 5:15 AM [facility] Anion Gap 18 8 - 18 04/18/2021 5:15 AM [facility] BUN/Creatinine Ratio 9 7 - 23 04/18/2021 5:15 AM [facility] Osmolality Calculated 295 270 - 300 mOsm/kg 04/18/2021 5:15 AM [facility] eGFR by CKD-EPI 81(L) >=90 mL/min/1.7 3 m2 04/18/2021 5:15 AM [facility] Blood BLOOD SPECIMEN / Unknown Lab Venipuncture / Unknown 04/18/2021 3:51 AM HARNESS PLACER 04/18/2021 4:52 AM [facility] us Aaron Hauser MD LAB - CHEMISTRY ORDERABLES Final Result [address] [address], [facility] [phone] * (ABNORMAL) HEMOGLOBIN A1C (04/16/2021 9:35 AM HARNESS PLACER) Pathologist [facility] Hemoglobin A1c 7.9(H) 4.4 - 6.3 % 04/16/2021 11:10 AM [facility] Estimated Average Glucose 180 mg/dL 04/16/2021 11:10 AM [facility] Comment: HbA1c Interpretation: Treatment target values recommended by ADA and other clinical organizations should be used to evaluate metabolic control in patients. Treatment Target Values: Normal : < 5.7% Pre-diabetes: 5.7-6.4% Diabetes: Equal to or greater than 6.5% Reference: [place] Diabetes Association Standards of Care in Diabetes -2014 In patients 70 years and older consider HbA1c target range of 7.0-7.5% Reference: Diabetes Mellitus in Older People: Position Statement on behalf of the International Association of Gerontology and Geriatrics (IAGG), the Diabetes Working Alliance Party for Older People (EDWPOP), and the International Task Force of Experts in Diabetes. Akash Saavedra et al. J [place] Citizen Medical Directors Association. 2012 Test results diagnostic of diabetes should be repeated for confirmation. The Sebia Capillary 2 assay for the measurement of HbA1c is a National Glycohemoglobin Standardization Program (NGSP)certified method. Blood BLOOD SPECIMEN / Unknown Venipuncture / Unknown 04/16/2021 9:35 AM HARNESS PLACER 04/16/2021 9:40 AM HARNESS PLACER us Aaron Hauser MD LAB - CHEMISTRY ORDERABLES Final Result [facility] [address] [place] [address], [facility] [phone] from Last 3 Months or Most Recently Relevant to Health Maintenance Insurance Advance Directives * Full Code (Latest Code Status on File) Date Activated Date Inactivated Comments 04/16/2021 12:01 AM 04/18/2021 5:09 PM Care Teams Concrete Curer Relationship Specialty Start Date End Date Yvette Cunningham MD [address] [address] PCP - General Family Medicine 11/11/24
--- OUTSIDE RECORDS SUMMARY | 2024-11-14 08:17 | XMS_ITS | Encounter Summary ---
Author Organization [facility] Address [address] [place] [address] Care Team Providers Care Link Trainer Maintenance Worker Name Role Phone Yvette Cunnignham MD Primary Care Provider [phone] Reason for Visit * Reason Onset Date Comments Loop Recorder 11/13/2024 Encounter Details Date Type Department Care Team (Late st Contact Info) Description 11/13/2024 Telephone [facility] - Cardiology 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 Answer Date of Assessment Author No 04/15/2021 11:42 PM Trina Hightower RN * Is person blind or have serious difficulty seeing? Answer Date of Assessment Author No 04/18/2021 4:30 PM Hosea Jim RN * Does person have serious difficulty walking/climbing stairs? Answer Date of Assessment Author No 04/18/2021 4:30 PM Hosea Jim RN * Does person have difficulty dressing/bathing? Answer Date of Assessment Author No 04/18/2021 4:30 PM Hosea Jim RN * Does person have difficulty doing errands alone? Answer Date of Assessment Author No 04/18/2021 4:30 PM Hosea Jim RN documented as of this encounter Mental Status * Does person have difficulty concentrating/remembering/making decisions? Answer Entry Date Author No 04/18/2021 4:30 PM Hosea Jim RN documented in this encounter Miscellaneous Notes * Telephone Encounter - Unique Valdivia RN - 11/13/2024 9:26 AM CDT Left message for patient regarding implantable loop recorder implanted 04/18/2021. Device most likely at end of service. Requesting a return call to cardiac device RN at [phone] to discuss. documented in this encounter Plan of Treatment Upcoming Encounters Date Type Department Care Team (Late st Contact Info) Description 11/26/2024 1:00 AM CDT Clinical Support [facility] - Cardiology [address] [facility], [address] [address] 12/31/2024 1:00 AM CDT Clinical Support [facility] - Cardiology [address], [place] [address] [place] [phone] 02/04/2025 1:00 AM CDT Clinical Support [facility] - Cardiology [address] [facility], [address] [address] documented as of this encounter Visit Diagnoses Not on filedocumented in this encounter Care Teams Link Trainer Maintenance Worker Relationship Specialty Start Date End Date Yvette Cunningham MD [address] [place] [address] [place] [address] PCP - General Family Medicine 11/11/24 documented as of this encounter
[2024-11-14] MEDS: ONDANSETRON INJ 4 MG/2 ML VIAL IV PUSH (08:51)
[2024-11-14] MEDS: fentaNYL CITRATE INJ (*CRX) 100 MCG/2 ML VIAL 50 MCG IV PUSH (08:52)
[2024-11-14] MEDS: ETOMIDATE 20 MG/10 ML AMPUL 30 MG IV PUSH (09:36)
--- OUTSIDE RECORDS SUMMARY | 2024-11-14 09:40 | XMS_ITS | Encounter Summary ---
Author Organization [facility] Health Address [address] [facility] [place] [address] Care Team Providers Care Library Services Coordinator Name Role Phone Yvette Cunningham MD Primary Care Provider [phone] Reason for Visit * Reason Onset Date Comments Loop Recorder 11/13/2024 Encounter Details Date Type Department Care Team (Late st Contact Info) Description 11/13/2024 Telephone [facility] - Cardiology [address] 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 documented in this encounter Plan of Treatment Upcoming Encounters Date Type Department Care Team (Late st Contact Info) Description 11/26/2024 1:00 AM CDT Clinical Support [facility] - Cardiology [address] [facility], [address] [address] 12/31/2024 1:00 AM CDT Clinical Support [facility] - Cardiology [address], [place] [address] [place] [phone] 02/04/2025 1:00 AM CDT Clinical Support [facility] - Cardiology [address] [facility], [address] [phone] documented as of this encounter Visit Diagnoses Not on filedocumented in this encounter Care Teams Library Services Coordinator Relationship Specialty Start Date End Date Yvette Cunningham MD [address] [place] [address] [place] [address] PCP - General Family Medicine 11/11/24 documented as of this encounter
--- OUTSIDE RECORDS SUMMARY | 2024-11-14 09:40 | XMS_ITS | Clinical Summary ---
Author Organization [facility] Address [address] [place] [address] Care Team Providers Care Molding Line Operator Name Role Phone Yvette Cunningham MD Primary Care Provider Source Comments [facility],non-owned Affiliates and Associated Physician Practices is amultiple site organization consisting of ambulatory clinics and hospital sitesin [place], [place], [place] and [place]. This disclosure is being madepursuant to the Care Everywhere program and may not contain all information available regarding this patient. Last updated 18.[facility] Allergies Active Allergy Reactions Criticality Noted Date [...] daily Active Calcium Carbonate-Vit D-Min (CALCIUM 1200) 7439-7262 MG-UNIT CHEW Take 1 tablet by mouth [...] 025 Discontin ued(List Clean-Up) Continuous Blood Gluc Photograph Developer (FREESTYLE VIRGEN 14 DAY READER) ROHIT 025 [...] Type Department Care Team Description 11/13/2024 Telephone [facility] - Cardiology [address] [facility], [place] [address] [place] [phone] Unique Valdivia RN Loop Recorder 11/11/2024 10:00 AM CDT Office Visit [facility] - Neurology [address] [place] [address], [place] [phone] Eleni Gtz PA-C Cerebrovascular accident (CVA), unspecified mechanism (HCC) (Primary Dx); Primary hypertension; Type 2 diabetes, controlled, with neuropathy (HCC); Moderate episode of recurrent major depressive disorder (HCC); Hallucinations; Cognitive dysfunction 11/11/2024 Travel 10/28/2024 Telephone [facility] - Cardiology [address] [facility], [place] [address] [place] [address] Provider, No Pcp Question; Loop [...] on file 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 Gender Identity Not on file Sexual Orientation Not on file Last Filed Vital Signs Vital Sign Reading Time Taken Comments Blood Pressure 116/74 11/11/2024 9:37 AM CDT Pulse 96 11/11/2024 9:37 AM CDT Temperature 36.6 C (97.8 F) 04/18/2021 12:58 PM ALTERATION WORKROOM SUPERVISOR Respiratory Rate 14 11/11/2024 9:37 AM CDT Oxygen Saturation 95% 04/18/2021 3:02 PM ALTERATION WORKROOM SUPERVISOR Inhaled Oxygen Concentration - - Weight 77.6 kg (171 lb) 11/11/2024 9:37 AM CDT Height 154.9 cm (5' 1) 11/22/2021 9:51 AM CDT Body Mass Index 32.31 11/22/2021 9:51 AM CDT Plan of Treatment Upcoming Encounters Date Type Department Care Team (Late st Contact Info) Description 11/26/2024 1:00 AM CDT Clinical Support [facility] - Cardiology [address] [facility], [address] [address] 12/31/2024 1:00 AM CDT Clinical Support [facility] Cardiology [address] [facility], [address] [address] 02/04/2025 1:00 AM CDT Clinical Support [facility] Cardiology [address] [facility], [address] [address] Health Maintenance Due Date Last Done Comments [...] this topic Medical Devices Implanted Type Area Carton Stenciler Device Identifier Shelf Expiration Date Model / Serial / Lot Sys Crd Mntr Rvl Linq Mycare[employer] Ins - [id number] Implanted:Qty : 1 on 04/18/2021 by Maico De La Cruz MD at [facility] Loop Recorder Left: Chest Wall [employer] 01/14/2022 LINQSYS DISCONTINUED / [id number] / Procedures Procedure Name Priority Date/Time Associated Diagnosis Comments BASIC METABOLIC PANEL (CALCIUM TOTAL) Routine 04/18/2021 3:51 AM ALTERATION WORKROOM SUPERVISOR HEMOGLOBIN A1C Add on 04/16/2021 9:35 AM ALTERATION WORKROOM SUPERVISOR from Last 3 Months or Most Recently Relevant to Health Maintenance Results * (ABNORMAL) BASIC METABOLIC PANEL (CALCIUM TOTAL) (04/18/2021 3:51 AM [facility]) BUN 7 7 - 26 mg/dL 04/18/2021 5:15 AM [facility] Creatinine 0.80 0.56 - 0.96 mg/dL 04/18/2021 5:15 AM [facility] Sodium 141 136 - 145 mmol/L 04/18/2021 5:15 AM [facility] Potassium 3.2(L) 3.5 - 4.5 mmol/L 04/18/2021 5:15 AM [facility] Chloride 105 98 - 107 mmol/L 04/18/2021 5:15 AM [facility] CO2 21(L) 22 - 29 mmol/L 04/18/2021 5:15 AM [facility] Glucose 185(H) 70 - 115 mg/dL 04/18/2021 5:15 AM [facility] Calcium 9.7 8.4 - 10.2 mg/dL 04/18/2021 5:15 AM [facility] Anion Gap 18 8 - 18 04/18/2021 5:15 AM [facility] BUN/Creatinine Ratio 9 7 - 23 04/18/2021 5:15 AM [facility] Osmolality Calculated 295 270 - 300 mOsm/kg 04/18/2021 5:15 AM [facility] eGFR by CKD-EPI 81(L) >=90 mL/min/1.7 3 m2 04/18/2021 5:15 AM [facility] Blood BLOOD SPECIMEN / Unknown Lab Venipuncture / Unknown 04/18/2021 3:51 AM ALTERATION WORKROOM SUPERVISOR 04/18/2021 4:52 AM [facility] us Aaron Hauser MD LAB - CHEMISTRY ORDERABLES Final Result [address] [address], [facility] [phone] * (ABNORMAL) HEMOGLOBIN A1C (04/16/2021 9:35 AM ALTERATION WORKROOM SUPERVISOR) Pathologist [facility] Hemoglobin A1c 7.9(H) 4.4 - 6.3 % 04/16/2021 11:10 AM [facility] Estimated Average Glucose 180 mg/dL 04/16/2021 11:10 AM [facility] Comment: HbA1c Interpretation: Treatment target values recommended by ADA and other clinical organizations should be used to evaluate metabolic control in patients. Treatment Target Values: Normal : < 5.7% Pre-diabetes: 5.7-6.4% Diabetes: Equal to or greater than 6.5% Reference: [place] Diabetes Association Standards of Care in Diabetes -2014 In patients 70 years and older consider HbA1c target range of 7.0-7.5% Reference: Diabetes Mellitus in Older People: Position Statement on behalf of the International Association of Gerontology and Geriatrics (IAGG), the Diabetes Working Constitution Party for Older People (EDWPOP), and the International Task Force of Experts in Diabetes. Akash Saavedra et al. J [place] Medical Directors Association. 2012 Test results diagnostic of diabetes should be repeated for confirmation. The Sebia Capillary 2 assay for the measurement of HbA1c is a National Glycohemoglobin Standardization Program (NGSP)certified method. Blood BLOOD SPECIMEN / Unknown Venipuncture / Unknown 04/16/2021 9:35 AM ALTERATION WORKROOM SUPERVISOR 04/16/2021 9:40 AM ALTERATION WORKROOM SUPERVISOR us Aaron Hauser MD LAB - CHEMISTRY ORDERABLES Final Result [facility] [address] [place] [address], [facility] [phone] from Last 3 Months or Most Recently Relevant to Health Maintenance Insurance Advance Directives * Full Code (Latest Code Status on File) Date Activated Date Inactivated Comments 04/16/2021 12:01 AM 04/18/2021 5:09 PM Care Teams Molding Line Operator Relationship Specialty Start Date End Date Yvette Cunningham MD [address] [place] [address] PCP - General Family Medicine 11/11/24
--- OUTSIDE RECORDS SUMMARY | 2024-11-14 09:40 | XMS_ITS | Referral Summary ---
Author Organization [facility] Address [address] [place] [address] Care Team Providers Care Tissue Inserter Name Role Phone Pardeep Alethea OROZCO Primary Care Provider [phone] Allergies Active Allergy Reactions Criticality Noted Date [...] 05/11/2021 Assessment & Plan (05/01/2023 9:38 AM WELL POINT PUMPING SUPERVISOR): This is a chronic condition which [...] a recent stroke. 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 No changes made to insulin pump. Assessment & Plan (06/28/2021 2:03 PM WELL POINT PUMPING SUPERVISOR): This is a chronic condition which [...] pump. Assessment & Plan (05/11/2021 1:59 PM WELL POINT PUMPING SUPERVISOR): This is a chronic condition which [...] 02/18/2017 Assessment & Plan (05/01/2023 9:38 AM WELL POINT PUMPING SUPERVISOR): This is a chronic condition which [...] prescribed. Assessment & Plan (06/28/2021 2:03 PM WELL POINT PUMPING SUPERVISOR): This is a chronic condition which is at goal. Goal is less than 70. Personally reviewed lipid panel. [id number] on crestor. Encouraged to eat healthy, include fresh fruits and vegetables daily and avoid eating fried foods more than once per week. Encouraged to take medications as prescribed. Assessment & Plan (05/11/2021 1:12 PM WELL POINT PUMPING SUPERVISOR): This is a chronic condition which [...] 02/18/2017 Assessment & Plan (05/01/2023 9:35 AM WELL POINT PUMPING SUPERVISOR): This is a chronic condition which [...] eye exam. last dilated eye exam was [facility] in [place] Monofilament foot exam completed. protective senses intact [...] worsening and not at goal. Personally reviewed [id number] to 9% not at goal less than 7% Personally reviewed blood sugar -129, not at goal 80-180 Medication- Continue Medtronic insulin pump. continue Trulicity 3mg weekly Monitor blood sugar continuously with FlxOnestyle jennie 2 Encouraged annual eye exam. Monofilament [...] which is not at goal. Personally reviewed [id number]-umosrfdgn to 9% not at goal less than [...] CVA Assessment & Plan (06/28/2021 2:00 PM WELL POINT PUMPING SUPERVISOR): This is a chronic condition which [...] CVA Assessment & Plan (05/11/2021 1:09 PM WELL POINT PUMPING SUPERVISOR): This is a chronic condition which [...] scheduled Assessment & Plan (06/28/2021 2:04 PM WELL POINT PUMPING SUPERVISOR): Improving. Continue to see therapy as scheduled Assessment & Plan (05/11/2021 1:10 PM WELL POINT PUMPING SUPERVISOR): This is a chronic condition. Seeing speech therapy. Give extra time to allow her to get her words out Hypertension 02/18/2017 05/11/2021 Assessment & Plan (05/11/2021 1:11 PM WELL POINT PUMPING SUPERVISOR): This is a chronic condition which [...] on file Legal Sex Female 4:58 PM WELL POINT PUMPING SUPERVISOR Gender Identity Not on file Sexual Orientation Not on file Last Filed Vital Signs Vital Sign Reading Time Taken Comments Blood Pressure 134/74 05/01/2023 8:59 AM WELL POINT PUMPING SUPERVISOR Pulse 68 12/07/2017 5:30 PM CDT Temperature 36.1 C (97 F) 12/07/2017 4:41 PM CDT Respiratory Rate 18 12/07/2017 5:30 PM CDT Oxygen Saturation 92% 12/07/2017 6:00 PM CDT Inhaled Oxygen Concentration - - Weight 82.2 kg (181 lb 3.2 oz) 05/01/2023 8:59 A M WELL POINT PUMPING SUPERVISOR Height 154.9 cm (5' 1) 05/01/2023 8:59 AM WELL POINT PUMPING SUPERVISOR Body Mass Index 34.24 05/01/2023 8:59 AM WELL POINT PUMPING SUPERVISOR Plan of Treatment Not on file Procedures Procedure Name Priority Date/Time Associated Diagnosis Comments POCT HEMOGLOBIN A1C Routine 05/01/2023 9 :11 AM WELL POINT PUMPING SUPERVISOR Type 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, with long-term current use of insulin (HCC) DIABETIC EYE EXAM Routine 03/26/2023 COMPREHENSIVE METABOLIC PANEL Routine 12/19/2022 LIPID PANEL Routine 12/19/2022 ALBUMIN CREATININE RATIO, URINE Routine 12/19/2022 from Last 3 Months or Most Recently Relevant to Health Maintenance Results * POCT hemoglobin A1c (05/01/2023 9:11 AM WELL POINT PUMPING SUPERVISOR) Hemoglobin A1C, POC 6.5 % Blood 05/01/2023 9:11 AM WELL POINT PUMPING SUPERVISOR Harleen Butler NP POINT OF CARE [...] ORDERABLES Gauri napier Result Performing Organization Address [facility]/ZIP Co de Phone Number [facility] * Comprehensive [...] - - [facility] SCRIBED eGFR in NonAfrican Taiwanese 51 - - - [facility] Blood 12/19/2022 Historical Provider LAB BLOOD ORDERABLES Gauri l Result [facility] from Last 3 Months or Most Recently Relevant to Health Maintenance Insurance [employer] [place] Care Teams Tissue Inserter Relationship Specialty [place] [address] [place], [place] [address], [place] [id number] PCP - General Family Medicine 05/01/23
--- OUTSIDE RECORDS SUMMARY | 2024-11-14 09:40 | XMS_ITS | Clinical Summary ---
Author Organization [facility] Address [address] [place] [address] Care Team Providers Care Supply Specialist Name Role Phone Pardeep Alethea OROZCO Primary Care Provider [phone] Allergies Active Allergy Reactions Criticality Noted Date [...] 05/11/2021 Assessment & Plan (05/01/2023 9:38 AM BARREL LATHE OPERATOR): This is a chronic condition which is [...] a recent stroke. 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 No changes made to insulin pump. Assessment & Plan (06/28/2021 2:03 PM BARREL LATHE OPERATOR): This is a chronic condition which is [...] pump. Assessment & Plan (05/11/2021 1:59 PM BARREL LATHE OPERATOR): This is a chronic condition which is [...] 02/18/2017 Assessment & Plan (05/01/2023 9:38 AM BARREL LATHE OPERATOR): This is a chronic condition which is [...] prescribed. Assessment & Plan (06/28/2021 2:03 PM BARREL LATHE OPERATOR): This is a chronic condition which is at goal. Goal is less than 70. Personally reviewed lipid panel. ldl-43 on crestor. Encouraged to eat healthy, include fresh fruits and vegetables daily and avoid eating fried foods more than once per week. Encouraged to take medications as prescribed. Assessment & Plan (05/11/2021 1:12 PM BARREL LATHE OPERATOR): This is a chronic condition which is [...] 02/18/2017 Assessment & Plan (05/01/2023 9:35 AM BARREL LATHE OPERATOR): This is a chronic condition which is [...] eye exam. last dilated eye exam was [facility] in [place] Monofilament foot exam completed. protective senses intact [...] worsening and not at goal. Personally reviewed J9o-fcuzjrhvk to 9% not at goal less than 7% Personally reviewed blood sugar -129, not at goal 80-180 Medication- Continue Medtronic insulin pump. continue Trulicity 3mg weekly Monitor blood sugar continuously with [employer] jennie 2 Encouraged annual eye exam. Monofilament [...] which is not at goal. Personally reviewed Y7u-sdsrrlipj to 9% not at goal less than [...] CVA Assessment & Plan (06/28/2021 2:00 PM BARREL LATHE OPERATOR): This is a chronic condition which is [...] CVA Assessment & Plan (05/11/2021 1:09 PM BARREL LATHE OPERATOR): This is a chronic condition which is [...] scheduled Assessment & Plan (06/28/2021 2:04 PM BARREL LATHE OPERATOR): Improving. Continue to see therapy as scheduled Assessment & Plan (05/11/2021 1:10 PM BARREL LATHE OPERATOR): This is a chronic condition. Seeing speech therapy. Give extra time to allow her to get her words out Hypertension 02/18/2017 05/11/2021 Assessment & Plan (05/11/2021 1:11 PM BARREL LATHE OPERATOR): This is a chronic condition which is [...] on file Legal Sex Female 4:58 PM BARREL LATHE OPERATOR Gender Identity Not on file Sexual Orientation Not on file Obstetrics History Last Filed Vital Signs Vital Sign Reading Time Taken Comments Blood Pressure 134/74 05/01/2023 8:59 AM BARREL LATHE OPERATOR Pulse 68 12/07/2017 5:30 PM CDT Temperature 36.1 C (97 F) 12/07/2017 4:41 PM CDT Respiratory Rate 18 12/07/2017 5:30 PM CDT Oxygen Saturation 92% 12/07/2017 6:00 PM CDT Inhaled Oxygen Concentration - - Weight 82.2 kg (181 lb 3.2 oz) 05/01/2023 8:59 A M BARREL LATHE OPERATOR Height 154.9 cm (5' 1) 05/01/2023 8:59 AM BARREL LATHE OPERATOR Body Mass Index 34.24 05/01/2023 8:59 AM BARREL LATHE OPERATOR Plan of Treatment Health Maintenance Due Date [...] HEMOGLOBIN A1C Routine 05/01/2023 9 :11 AM BARREL LATHE OPERATOR Type 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, with long-term current use of insulin (HCC) DIABETIC EYE EXAM Routine 03/26/2023 COMPREHENSIVE METABOLIC PANEL Routine 12/19/2022 LIPID PANEL Routine 12/19/2022 ALBUMIN CREATININE RATIO, URINE Routine 12/19/2022 from Last 3 Months or Most Recently Relevant to Health Maintenance Results * POCT hemoglobin A1c (05/01/2023 9:11 AM BARREL LATHE OPERATOR) Hemoglobin A1C, POC 6.5 % Blood 05/01/2023 9:11 AM BARREL LATHE OPERATOR Harleen Butler NP POINT OF CARE TEST [...] ORDERABLES Gauri l Result Performing Organization Address [facility]/ZIP Co de Phone Number [facility] * Comprehensive [...] - - [facility] SCRIBED eGFR in NonAfrican Pakistani 51 - - - [facility] Blood 12/19/2022 Result [facility] Historical Provider LAB BLOOD ORDERABLES Gauri l Result Performing Organization Address [facility]/ZIP Co de Phone Number [facility] from Last 3 Months or Most Recently Relevant to Health Maintenance [place] Apprion [place] App[place]ion [place] Care Teams Supply Specialist Relationship Specialty Start Date End Date Alethea Roberto NP [address] [place] [address] PCP - General Family Medicine 05/01/23
== END 2024-11-14 12:04 | disposition short-term general hospital (02) ==
PROVIDERS: Emergency Provider Emergency Medicine
DX: S82.891A Other fracture of right lower leg, initial encounter for closed fracture (principal); I10 Essential (primary) hypertension; E11.9 Type 2 diabetes mellitus without complications; Z86.73 Personal history of transient ischemic attack (TIA), and cerebral infarction without residual deficits; Z87.891 Personal history of nicotine dependence; W18.30XA Fall on same level, unspecified, initial encounter
CPT/HCPCS: 27810; 73610; 96374; 96375; 99285; J2405; J3010

== ENCOUNTER 2024-11-14 13:00 | Inpatient (IN) | payer BC, SELFPAY ==
--- NOTE | ~2024-11-14 | XR_ITS ---
Portable chest x-ray Comparison: 02/16/2022 Clinical History: Surgery workup Findings: Probable minimal left basilar atelectasis. Possible COPD. Cardiomediastinal silhouette is stable, with loop recorder. Bones and soft tissues are unremarkable. Impression: Suspected COPD with left basilar atelectasis or scarring. Reviewed, dictated and finalized at [facility]. Impression: Suspected COPD with left basilar atelectasis or scarring.
--- NOTE | ~2024-11-14 | XR_ITS ---
EXAMINATION: XR surgery orthopedic DATE: 11/15/2024 09:33 INDICATION: ORIF right ankle fracture TECHNIQUE: 3 fluoroscopic images of the right ankle were obtained during procedure performed by Dr. Paula velazco. Radiologist was not present for the imaging or procedure. The amount of fluoroscopy time used during this procedure was 0.4 minutes. Total DAP was 0.233 mGym^2. COMPARISON: 11/14/2024 FINDINGS: Interval open reduction internal fixation of the previously seen trimalleolar fracture which is now i n near-anatomic alignment with a congruent ankle mortise. The medial malleolar fractures fixed with a lag screw. The distal fibular fracture is fixed with a lateral plate and screws. The posterior malle olus fracture remains unfixed. No new fractures identified. IMPRESSION: 1. Near-anatomic alignment post open reduction internal fixation of trimalleolar fracture of the righ t ankle. See procedure note for further detail. Reviewed, dictated and finalized at location [facility]. IMPRESSION: 1. Near-anatomic alignment post open reduction internal fixation of trimalleola r fracture of the right ankle. See procedure note for further detail.
--- OUTSIDE RECORDS SUMMARY | 2024-11-14 13:06 | XMS_ITS | Clinical Summary ---
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 No changes made to insulin pump. Assessment & Plan (06/28/2021 2:03 PM CRUTCH MAKER): This is a chronic condition which [...] pump. Assessment & Plan (05/11/2021 1:59 PM CRUTCH MAKER): This is a chronic condition which [...] 02/18/2017 Assessment & Plan (05/01/2023 9:38 AM CRUTCH MAKER): This is a chronic condition which [...] prescribed. Assessment & Plan (06/28/2021 2:03 PM CRUTCH MAKER): This is a chronic condition which is at goal. Goal is less than 70. Personally reviewed lipid panel. ldl-43 on crestor. Encouraged to eat healthy, include fresh fruits and vegetables daily and avoid eating fried foods more than once per week. Encouraged to take medications as prescribed. Assessment & Plan (05/11/2021 1:12 PM CRUTCH MAKER): This is a chronic condition which [...] 02/18/2017 Assessment & Plan (05/01/2023 9:35 AM CRUTCH MAKER): This is a chronic condition which [...] eye exam. last dilated eye exam was [facility] in [place] Monofilament foot exam completed. protective senses intact [...] worsening and not at goal. Personally reviewed G0q-vvljtdrcf to 9% not at goal less than 7% Personally reviewed blood sugar -129, not at goal 80-180 Medication- Continue Medtronic insulin pump. continue Trulicity 3mg weekly Monitor blood sugar continuously with [employer] jennie 2 Encouraged annual eye exam. Monofilament [...] which is not at goal. Personally reviewed C0d-bbutjgkam to 9% not at goal less than [...] CVA Assessment & Plan (06/28/2021 2:00 PM CRUTCH MAKER): This is a chronic condition which [...] CVA Assessment & Plan (05/11/2021 1:09 PM CRUTCH MAKER): This is a chronic condition which [...] scheduled Assessment & Plan (06/28/2021 2:04 PM CRUTCH MAKER): Improving. Continue to see therapy as scheduled Assessment & Plan (05/11/2021 1:10 PM CRUTCH MAKER): This is a chronic condition. Seeing speech therapy. Give extra time to allow her to get her words out Hypertension 02/18/2017 05/11/2021 Assessment & Plan (05/11/2021 1:11 PM CRUTCH MAKER): This is a chronic condition which [...] on file Legal Sex Female 4:58 PM CRUTCH MAKER Gender Identity Not on file Sexual Orientation Not on file Obstetrics History Last Filed Vital Signs Vital Sign Reading Time Taken Comments Blood Pressure 134/74 05/01/2023 8:59 AM CRUTCH MAKER Pulse 68 12/07/2017 5:30 PM CDT Temperature 36.1 C (97 F) 12/07/2017 4:41 PM CDT Respiratory Rate 18 12/07/2017 5:30 PM CDT Oxygen Saturation 92% 12/07/2017 6:00 PM CDT Inhaled Oxygen Concentration - - Weight 82.2 kg (181 lb 3.2 oz) 05/01/2023 8:59 A M CRUTCH MAKER Height 154.9 cm (5' 1) 05/01/2023 8:59 AM CRUTCH MAKER Body Mass Index 34.24 05/01/2023 8:59 AM CRUTCH MAKER Plan of Treatment Health Maintenance Due Date [...] HEMOGLOBIN A1C Routine 05/01/2023 9 :11 AM CRUTCH MAKER Type 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, with long-term current use of insulin (HCC) DIABETIC EYE EXAM Routine 03/26/2023 COMPREHENSIVE METABOLIC PANEL Routine 12/19/2022 LIPID PANEL Routine 12/19/2022 ALBUMIN CREATININE RATIO, URINE Routine 12/19/2022 from Last 3 Months or Most Recently Relevant to Health Maintenance Results * POCT hemoglobin A1c (05/01/2023 9:11 AM CRUTCH MAKER) Hemoglobin A1C, POC 6.5 % Blood 05/01/2023 9:11 AM CRUTCH MAKER Harleen Butler NP POINT OF CARE [...] ORDERABLES Gauri l Result Performing Organization Address [facility]/ZIP Co de Phone Number [facility] [...] - - [facility] SCRIBED eGFR in NonAfrican Guatemalan 51 - - - [facility] Blood 12/19/2022 Result [facility] Historical Provider LAB BLOOD ORDERABLES Gauri l Result Performing Organization Address [facility]/ZIP Co de Phone Number [facility] from Last 3 Months or Most Recently Relevant to Health Maintenance Insurance [employer] [place] [employer] [place] Care Teams Repairer Engine Production Relationship Specialty Start Date End Date Alethea Roberto NP [address] [place] [address] PCP - General Family Medicine 05/01/23
--- OUTSIDE RECORDS SUMMARY | 2024-11-14 13:06 | XMS_ITS | Encounter Summary ---
Author Organization [facility] Address [address] [place] [address] Care Team Providers Care Heel Seat Laster Name Role Phone Yvette Cunningham MD Primary Care Provider [phone] Reason for Visit * Reason Onset Date Comments Loop Recorder 11/13/2024 Encounter Details Date Type Department Care Team (Late st Contact Info) Description 11/13/2024 Telephone [facility] - Cardiology [address] [facility] [address] [place] [id number] Unique Valdivia RN Loop Recorder Social History [...] on file Legal Sex Female 8:31 AM PATIENT CARE TECHNICIAN Gender Identity Not on file Sexual [...] return call to cardiac device RN at [phone] to discuss. documented in this encounter Plan of Treatment Upcoming Encounters Date Type Department Care Team (Late st Contact Info) Description 11/26/2024 1:00 AM CDT Clinical Support [facility] - Cardiology [address] [facility], [address] [address] 12/31/2024 1:00 AM CDT Clinical Support [facility] - Cardiology [address], [address] [place] [phone] 02/04/2025 1:00 AM CDT Clinical Support [facility] - Cardiology [address] [facility], [address] [address] documented as of this encounter Visit Diagnoses Not on filedocumented in this encounter Care Teams Heel Seat Laster Relationship Specialty Start Date End Date Yvette Cunningham MD [address] [place] [address] [place] [address] PCP - General Family Medicine 11/11/24 documented as of this encounter
--- OUTSIDE RECORDS SUMMARY | 2024-11-14 13:06 | XMS_ITS | Clinical Summary ---
Author Organization [facility] Address [address] [place] [address] Care Team Providers Care Retail Grocer Name Role Phone Yvette Cunningham MD Primary Care Provider [phone] Source Comments [facility],non-owned Affiliates and Associated Physician Practices is amultiple site organization consisting of ambulatory clinics and hospital sitesin [place], [place], [place] and [place]. This disclosure is being madepursuant to the Care Everywhere program and may not contain all information available regarding this patient. Last updated 18.[facility] Allergies Active Allergy Reactions Criticality Noted Date [...] daily Active Calcium Carbonate-Vit D-Min (CALCIUM 1200) 4002-5150 MG-UNIT CHEW Take 1 tablet by mouth [...] 025 Discontin ued(List Clean-Up) Continuous Blood Gluc Master Automotive Technician (FREESTYLE VIRGEN 14 DAY READER) ROHIT 025 [...] Type Department Care Team Description 11/13/2024 Telephone [facility] - Cardiology [address] [facility], [place] [id number] [place] [phone] Unique Valdivia RN Loop Recorder 11/11/2024 10:00 AM CDT Office Visit [facility] - Neurology [address] [place] [address], [place] [phone] Eleni Gtz PA-C Cerebrovascular accident (CVA), unspecified mechanism (HCC) (Primary Dx); Primary hypertension; Type 2 diabetes, controlled, with neuropathy (HCC); Moderate episode of recurrent major depressive disorder (HCC); Hallucinations; Cognitive dysfunction 11/11/2024 Travel 10/28/2024 Telephone [facility] - Cardiology [address] [facility], [facility] [address] [place] [address] Provider, No Pcp Question; Loop [...] on file Legal Sex Female 8:31 AM DAIRY FEED MIXING OPERATOR Gender Identity Not on file Sexual Orientation Not on file Last Filed Vital Signs Vital Sign Reading Time Taken Comments Blood Pressure 116/74 11/11/2024 9:37 AM CDT Pulse 96 11/11/2024 9:37 AM CDT Temperature 36.6 C (97.8 F) 04/18/2021 12:58 PM DAIRY FEED MIXING OPERATOR Respiratory Rate 14 11/11/2024 9:37 AM CDT Oxygen Saturation 95% 04/18/2021 3:02 PM DAIRY FEED MIXING OPERATOR Inhaled Oxygen Concentration - - Weight 77.6 kg (171 lb) 11/11/2024 9:37 AM CDT Height 154.9 cm (5' 1) 11/22/2021 9:51 AM CDT Body Mass Index 32.31 11/22/2021 9:51 AM CDT Plan of Treatment Upcoming Encounters Date Type Department Care Team (Late st Contact Info) Description 11/26/2024 1:00 AM CDT Clinical Support [facility] - Cardiology [address] [facility], [address] [address] 12/31/2024 1:00 AM CDT Clinical Support [facility] Cardiology [address] [facility], [address] [address] 02/04/2025 1:00 AM CDT Clinical Support [facility] Cardiology [address] [facility], [address] [address] Health Maintenance Due Date Last Done Comments [...] this topic Medical Devices Implanted Type Area Examining Chair Assembler Device Identifier Shelf Expiration Date Model / Serial / Lot Sys Crd Mntr Rvl Linq Mycare[employer] Ins - [id number] Implanted:Qty : 1 on 04/18/2021 by Maico De La Cruz MD at [facility] Loop Recorder Left: Chest Wall [employer] 01/14/2022 LINQSYS DISCONTINUED / [id number] / Procedures Procedure Name Priority Date/Time Associated Diagnosis Comments BASIC METABOLIC PANEL (CALCIUM TOTAL) Routine 04/18/2021 3:51 AM DAIRY FEED MIXING OPERATOR HEMOGLOBIN A1C Add on 04/16/2021 9:35 AM DAIRY FEED MIXING OPERATOR from Last 3 Months or Most Recently Relevant to Health Maintenance Results * (ABNORMAL) BASIC METABOLIC PANEL (CALCIUM TOTAL) (04/18/2021 3:51 AM [facility]) BUN 7 7 - 26 mg/dL 04/18/2021 5:15 AM [facility] Creatinine 0.80 0.56 - 0.96 mg/dL 04/18/2021 5:15 AM [facility] Sodium 141 136 - 145 mmol/L 04/18/2021 5:15 AM [facility] Potassium 3.2(L) 3.5 - 4.5 mmol/L 04/18/2021 5:15 AM [facility] Chloride 105 98 - 107 mmol/L 04/18/2021 5:15 AM [facility] CO2 21(L) 22 - 29 mmol/L 04/18/2021 5:15 AM [facility] Glucose 185(H) 70 - 115 mg/dL 04/18/2021 5:15 AM [facility] Calcium 9.7 8.4 - 10.2 mg/dL 04/18/2021 5:15 AM [facility] Anion Gap 18 8 - 18 04/18/2021 5:15 AM [facility] BUN/Creatinine Ratio 9 7 - 23 04/18/2021 5:15 AM [facility] Osmolality Calculated 295 270 - 300 mOsm/kg 04/18/2021 5:15 AM [facility] eGFR by CKD-EPI 81(L) >=90 mL/min/1.7 3 m2 04/18/2021 5:15 AM [facility] Blood BLOOD SPECIMEN / Unknown Lab Venipuncture / Unknown 04/18/2021 3:51 AM DAIRY FEED MIXING OPERATOR 04/18/2021 4:52 AM [facility] us Aaron Hauser MD LAB - CHEMISTRY ORDERABLES Final Result [address] [address], [facility] [phone] * (ABNORMAL) HEMOGLOBIN A1C (04/16/2021 9:35 AM DAIRY FEED MIXING OPERATOR) Pathologist [facility] Hemoglobin A1c 7.9(H) 4.4 - 6.3 % 04/16/2021 11:10 AM [facility] Estimated Average Glucose 180 mg/dL 04/16/2021 11:10 AM [facility] Comment: HbA1c Interpretation: Treatment target values recommended by ADA and other clinical organizations should be used to evaluate metabolic control in patients. Treatment Target Values: Normal : < 5.7% Pre-diabetes: 5.7-6.4% Diabetes: Equal to or greater than 6.5% Reference: [place] Diabetes Association Standards of Care in Diabetes -2014 In patients 70 years and older consider HbA1c target range of 7.0-7.5% Reference: Diabetes Mellitus in Older People: Position Statement on behalf of the International Association of Gerontology and Geriatrics (IAGG), the Diabetes Working Democrat for Older People (EDWPOP), and the International Task Force of Experts in Diabetes. Akash Savaedra et al. J [place] Medical Directors Association. 2012 Test results diagnostic of diabetes should be repeated for confirmation. The Sebia Capillary 2 assay for the measurement of HbA1c is a National Glycohemoglobin Standardization Program (NGSP)certified method. Blood BLOOD SPECIMEN / Unknown Venipuncture / Unknown 04/16/2021 9:35 AM DAIRY FEED MIXING OPERATOR 04/16/2021 9:40 AM DAIRY FEED MIXING OPERATOR us Aaron Hauser MD LAB - CHEMISTRY ORDERABLES Final Result [facility] [address] [place] [address], [facility] [phone] from Last 3 Months or Most Recently Relevant to Health Maintenance Insurance Advance Directives * Full Code (Latest Code Status on File) Date Activated Date Inactivated Comments 04/16/2021 12:01 AM 04/18/2021 5:09 PM Care Teams Retail Grocer Relationship Specialty Start Date End Date Yvette Cunningham MD [address] [place] [address] PCP - General Family Medicine 11/11/24
--- OUTSIDE RECORDS SUMMARY | 2024-11-14 13:06 | XMS_ITS | Referral Summary ---
Author Organization [facility] Address [address] [place] [address] Care Team Providers Care Medical Record Librarian Name Role Phone Pardeep Alethea OROZCO Primary Care Provider [phone] Allergies Active Allergy Reactions Criticality Noted Date [...] 05/11/2021 Assessment & Plan (05/01/2023 9:38 AM MOTORCYCLE MAKER): This is a chronic condition which [...] a recent stroke. 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 No changes made to insulin pump. Assessment & Plan (06/28/2021 2:03 PM MOTORCYCLE MAKER): This is a chronic condition which [...] pump. Assessment & Plan (05/11/2021 1:59 PM MOTORCYCLE MAKER): This is a chronic condition which [...] 02/18/2017 Assessment & Plan (05/01/2023 9:38 AM MOTORCYCLE MAKER): This is a chronic condition which [...] prescribed. Assessment & Plan (06/28/2021 2:03 PM MOTORCYCLE MAKER): This is a chronic condition which is at goal. Goal is less than 70. Personally reviewed lipid panel. ldl-43 on crestor. Encouraged to eat healthy, include fresh fruits and vegetables daily and avoid eating fried foods more than once per week. Encouraged to take medications as prescribed. Assessment & Plan (05/11/2021 1:12 PM MOTORCYCLE MAKER): This is a chronic condition which [...] 02/18/2017 Assessment & Plan (05/01/2023 9:35 AM MOTORCYCLE MAKER): This is a chronic condition which [...] eye exam. last dilated eye exam was [facility] in [place] Monofilament foot exam completed. protective senses intact [...] worsening and not at goal. Personally reviewed S7o-mccinngca to 9% not at goal less than 7% Personally reviewed blood sugar -129, not at goal 80-180 Medication- Continue Medtronic insulin pump. continue Trulicity 3mg weekly Monitor blood sugar continuously with [employer] jennie 2 Encouraged annual eye exam. Monofilament [...] which is not at goal. Personally reviewed H8s-udaoenctm to 9% not at goal less than [...] CVA Assessment & Plan (06/28/2021 2:00 PM MOTORCYCLE MAKER): This is a chronic condition which [...] CVA Assessment & Plan (05/11/2021 1:09 PM MOTORCYCLE MAKER): This is a chronic condition which [...] scheduled Assessment & Plan (06/28/2021 2:04 PM MOTORCYCLE MAKER): Improving. Continue to see therapy as scheduled Assessment & Plan (05/11/2021 1:10 PM MOTORCYCLE MAKER): This is a chronic condition. Seeing speech therapy. Give extra time to allow her to get her words out Hypertension 02/18/2017 05/11/2021 Assessment & Plan (05/11/2021 1:11 PM MOTORCYCLE MAKER): This is a chronic condition which [...] on file Legal Sex Female 4:58 PM MOTORCYCLE MAKER Gender Identity Not on file Sexual Orientation Not on file Last Filed Vital Signs Vital Sign Reading Time Taken Comments Blood Pressure 134/74 05/01/2023 8:59 AM MOTORCYCLE MAKER Pulse 68 12/07/2017 5:30 PM CDT Temperature 36.1 C (97 F) 12/07/2017 4:41 PM CDT Respiratory Rate 18 12/07/2017 5:30 PM CDT Oxygen Saturation 92% 12/07/2017 6:00 PM CDT Inhaled Oxygen Concentration - - Weight 82.2 kg (181 lb 3.2 oz) 05/01/2023 8:59 A M MOTORCYCLE MAKER Height 154.9 cm (5' 1) 05/01/2023 8:59 AM MOTORCYCLE MAKER Body Mass Index 34.24 05/01/2023 8:59 AM MOTORCYCLE MAKER Plan of Treatment Not on file Procedures Procedure Name Priority Date/Time Associated Diagnosis Comments POCT HEMOGLOBIN A1C Routine 05/01/2023 9 :11 AM MOTORCYCLE MAKER Type 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, with long-term current use of insulin (HCC) DIABETIC EYE EXAM Routine 03/26/2023 COMPREHENSIVE METABOLIC PANEL Routine 12/19/2022 LIPID PANEL Routine 12/19/2022 ALBUMIN CREATININE RATIO, URINE Routine 12/19/2022 from Last 3 Months or Most Recently Relevant to Health Maintenance Results * POCT hemoglobin A1c (05/01/2023 9:11 AM MOTORCYCLE MAKER) Hemoglobin A1C, POC 6.5 % Blood 05/01/2023 9:11 AM MOTORCYCLE MAKER Harleen Butler NP POINT OF CARE [...] ORDERABLES Gauri napier Result Performing Organization Address [facility]/ZIP Co de Phone Number [facility] * Comprehensive [...] - - [facility] SCRIBED eGFR in NonAfrican Swazi 51 - - - [facility] Blood 12/19/2022 Historical Provider LAB BLOOD ORDERABLES Gauri l Result [facility] from Last 3 Months or Most Recently Relevant to Health Maintenance [place] [employer] [place] Care Teams Medical Record Librarian Relationship Specialty Start [place] [address] [place], [place] [address], [place] [id number] PCP - General Family Medicine 05/01/23
--- NOTE | 2024-11-14 13:13 | ADMGEN ---
This patient, Pravin Pompa, was admitted to [facility] Surg Room 315-01. Patient/family oriented to hospital policies and general routines including ID bracelet, bed and alarms, visiting hours, pain management, procedures, bathroom and other care routines, personal items, smoking policy, room service/diet, and visiting hours. Information on how to activate the Rapid Response Team has been discussed. Patient/Family are encouraged to report perceived risks to care and to ask questions if they do not understand what they are told or what they should do.
[2024-11-14 13:23] VITALS: BMI 32.4
[2024-11-14 14:00] VITALS: BP 146/62; PULSE 89; RESP 18; TEMP 36.3; O2SAT 94
--- NOTE | 2024-11-14 15:54 | P.HP_ITS ---
H&P: HPI History of Present Illness Date/Time: 11/14/24 15:54 Chief Complaint: Right ankle pain Narrative: 59-year-old female past medical history of guard, diabetes, depression, CVA, hypertension and hyperlipidemia complaining of acute right ankle pain after fall. HPI is limited patient is on pain medication. She states that she called her to lecture him about not knowing whether daughter was. Her daughter is a ground woman with the and her own house. Patient states that she was going to walk home from a friend's house to her house and made about 2 blocks before she tripped on the sidewalk and fell. Patient denies all complaints. Lab work revealed leukocytosis at 13.3, anemia at 11.3, potassium 3.4, BUN of 6, creatinine of 1.19, GFR of 46, glucose of 352, hemoglobin A1c of 8.7, calcium at 8.3, magnesium of 1.7, EKG shows sinus rhythm. Right ankle x-ray shows displaced bimalleolar fracture Review of Systems Review of Systems: 12 systems were reviewed and are negativ e except for as per HPI. [facility] Past Medical History Medical History (Updated 11/14/24 @ 16:43 by Tereza Gresham APRN) Hemorrhoids GERD (gastroesophageal reflux disease) Diabetes Torticollis Depression with suicidal ideation CVA (cerebral vascular accident) Dyslipidemia Hypertension Surgical History Surgical History Hx of cholecystectomy Family History Family History (Updated 11/14/24 @ 14:10 by Yulissa Willis RN) Father Alzheimer dementia Mother Parkinson's disease Mother No problems noted. Other Unknown family medical history Social History Social History Smoking status: Former smoker Tobacco type: cigarettes Smoking end date: 06/03/22 Alcohol intake: never Substance use: current Substance use type: marijuana Other substance usage details: USING MARIJUANA GUMMIES Last use: 11/10/2024 Do You Feel Safe in your Home?: Yes Lack of Transportation: No Lack of Food: Never True Current Housing: I Have Housing Concerned About Future Housing: No Difficulty Paying Gas/Electric Bills: No Difficulty Paying for Meds: No Currently Unemployed: No Education: Decline to Answer Difficulty w/ Childcare or Family Care: No Spiritual care concerns: No Meds Home Medications and Allergies Home Medications ?Medication ?Instructions ?Recorded ?Confirmed ?Type albuterol sulfate 90 mcg/actuation 2 puff inhalation Q4-5H PRN 04/14/21 11/14/24 History aerosol inhaler Shortness Of Breath bupropion HCl 300 mg 24 hr tablet, 300 mg PO DAILY 04/14/21 11/14/24 History extended release cyclobenzaprine 10 mg tablet 10 mg PO TID PRN Muscle Spasm 04/14/21 11/14/24 History fluoxetine 20 mg capsule 60 mg PO DAILY 04/14/21 11/14/24 History furosemide 20 mg tablet 20 mg PO DAILY 04/14/21 11/14/24 History insulin aspart U-100 100 unit/mL 1 sliding scale dose subcut 04/14/21 11/14/24 History subcutaneous solution (Novolog USEASDIRECTD U-100 Insulin aspart) lisinopril 30 mg tablet 30 mg PO DAILY 04/14/21 11/14/24 History melatonin 10 mg tablet 10 mg PO HS 04/14/21 11/14/24 History rosuvastatin 20 mg tablet 20 mg PO HS 04/14/21 11/14/24 History clonazepam 1 mg tablet 1 mg PO BID PRN Anxiety 02/16/22 11/14/24 History amlodipine 10 mg tablet 10 mg PO DAILY 10/18/24 11/14/24 History aspirin 81 mg chewable tablet 81 mg PO DAILY 10/18/24 11/14/24 History (Aspirin Childrens) calcium carbonate (Calcium 500) 500 mg PO DAILY 10/18/24 11/14/24 History fluticasone 500 mcg-salmeterol 50 1 inh inhalation Q12H 10/18/24 11/14/24 History mcg/dose blistr powdr for inhalation (Wixela Inhub) methocarbamol 500 mg tablet 500 mg PO Q8H PRN muscle spasm 10/18/24 11/14/24 History metoprolol succinate 50 mg 50 mg PO DAILY 10/18/24 11/14/24 History tablet,extended release 24 hr insulin glargine 100 unit/mL (3 10 unit (0.1 mL) subcut QPM #15 mL 10/19/24 11/14/24 Rx mL) subcutaneous pen (Lantus Solostar U-100 Insulin) ondansetron 4 mg disintegrating 4 mg PO Q8H PRN nausea and 10/19/24 11/14/24 Rx tablet vomiting #30 tabs pantoprazole 40 mg tablet,delayed 40 mg PO Q12HR #60 tabs 10/19/24 11/14/24 Rx release hydrocodone 5 mg-acetaminophen 325 1 tablet PO Q4H PRN pain #20 tabs 11/14/24 11/14/24 Rx mg tablet Allergies Allergy/AdvReac Type Severity Reaction Status Date / Time Sulfa (Sulfonamide Allergy Unknown Rash Verified 11/14/24 08:36 Antibiotics) Latex, Natural Rubber Allergy Swelling Verified 11/14/24 08:36 of Lip/Tongue/Throat Vital Signs Vital Signs - 24 hr 11/14/24 14:00 11/14/24 14:27 Temperature 97.4 F L Pulse Rate 89 Respiratory Rate 18 Blood Pressure 146/62 H Pulse Oximetry 94 Oxygen Delivery Room Air Exam Narrative: General: well appearing, appears stated age. HEENT: normocephalic, atraumatic. Mucous membranes moist. EOMI, PERRLA, bilateral sclera anicteric, no conjunctival injection. Neck supple without JVD, lymphadenopathy, or bruit. Respiratory: clear to ascultation bilaterally. No rales/rhonic/wheezes. Cardiovascular: Regular rate and rhythm, normal S1-S2 upon ascultation. No murmurs, rubs, or clicks. PMI is nondisplaced, capillary refill less than 3 second. Abdomen: Soft, round, no pulsatile masses, nondistended and nontender. No rebound, no guarding. No CVA tenderness, no hepatosplenomegaly. Bowel sounds present to all four quadrants. No high pitch or tinkling sounds, resonant to percussion. Extremities: No cyanosis, clubbing, or edema present. Left lower extremity in splint able to wiggle toes Neuro: Alert and orientated x 4. PERRLA. Cranial nerves 2-12 intact without focal deficit. Skin: Warm, dry, and intact, without rash, erythema, or lesion. Psych: pleasant, cooperative, normal speech, normal affect, no hallucinations, no dysarthia Assessment and Plan Assessment and plan (1) Ankle fracture, right: Code(s): S82.891A - Other fracture of right lower leg, initial encounter for closed fracture Status: Acute Assessment and Plan: Orthopedics consulted Plan surgery for tomorrow Pain management bowel protocol NPO midnight Chest x-ray pending EKG pending Patient is diabetic, revised cardiac index, 1 point, 6% (2) Hypertension: Code(s): I10 - Essential (primary) hypertension Status: Acute Assessment and Plan: Continue home lisinopril (3) Dyslipidemia: Code(s): E78.5 - Hyperlipidemia, unspecified Status: Acute Assessment and Plan: Continue home Crestor (4) Diabetes: Code(s): E11.9 - Type 2 diabetes mellitus without complications Status: Acute Assessment and Plan: Will need a diabetic diet Accu-Cheks a.c. HS Home Lantus and SSI Hold home oral antihyperglycemics Quality VTE Prophylaxis VTE prophylaxis: mechanical ordered Hospitalist MIPS Advance Care Plan I have confirmed that the patient's Advanced Care Plan is present, code status is documented, or surrogate decision maker is listed in patient medical record.: Yes Medication Reconciliation I have utilized all available resources to obtain, update and review the patients current medications (includes all prescriptions, OTC, herbals, cannabi s, and nutritional supplements).: Yes
[2024-11-14] MEDS: HYDROcodone/acetaminophen (*CRX) 5-325 MG TABLET 1 TAB PO ×2 (16:04→22:08)
[2024-11-14 16:51] LABS: Basophils Absolute Auto 0.2 K/mm3 (0.0-0.1); Basophils Percent Auto 1.2 % (0.2-1.2); Eosinophils Absolute Auto 0.6 K/mm3 (0-0.3); Eosinophils Percent Auto 4.5 % (0-4.4); Hematocrit 35.5 % (37.0-47.0); Hemoglobin 11.1 g/dL (12.0-15.0); Immature Granulocyte Absolute 0.13 K/mm3 (0.00-0.031); Lymphocytes Absolute Auto 3.94 K/mm3 (0.9-3.2); Lymphocytes Percent Auto 30.2 % (18.3-44.2); Mean Corpuscular HGB Conc 31.3 g/dl (32-36); Mean Corpuscular Hemoglobin 25.3 pg (26-34); Mean Corpuscular Volume 81.1 fl (80-100); Mean Platelet Volume 11.5 fl (7.4-10.4); Monocytes Absolute Auto 1.7 K/mm3 (0.1-0.6); Monocytes Percent Auto 13.3 % (2.6-8.5); Neutrophils Absolute Auto 6.5 K/mm3 (1.3-6.7); Neutrophils Percent Auto 49.8 % (45.5-73.1); Platelet Count Result 391 k/mm3 (150-375); Red Blood Count 4.38 M/mm3 (4.2-5.4); Red Cell Distribution Width 15.7 % (11.5-14.5)
[2024-11-14 17:01] LABS: Anion Gap 9 mmol/L (4-12); Blood Urea Nitrogen 13 mg/dL (7-17); Calcium 8.6 mg/dL (8.4-10.2); Carbon Dioxide 28 mmol/L (22-30); Chloride 100 mmol/L (98-107); Estimated CRCL calculation 66 ml/min; Estimated Glomerular Filt Rate > 60; Glucose 335 mg/dL (65-110); Potassium 3.5 mmol/L (3.4-5.0); Sodium 137 mmol/L (137-145)
[2024-11-14 17:14] LABS: Glucose Point of Care 320 mg/dl (65-105)
[2024-11-14] MEDS: INSULIN GLARGINE (*BKC) 100 UNITS/ML 10 UNITS SUB-Q (17:58)
[2024-11-14] MEDS: DOCUSATE SODIUM 100 MG CAPSULE PO (17:58)
[2024-11-14] MEDS: INSULIN ASPART (*BKC) 100 UNITS/ML SUB-Q ×2 (17:59→22:08)
[2024-11-14] MEDS: MORPHINE SULFATE (*CRX) 2 MG/ML INJ IV PUSH (20:41)
[2024-11-14] MEDS: MELATONIN 5 MG TABLET 10 MG PO (20:43)
[2024-11-14] MEDS: PANTOPRAZOLE 40 MG TABLET PO (20:43)
[2024-11-14] MEDS: ROSUVASTATIN 20 MG TABLET PO (20:43)
[2024-11-14 22:00] VITALS: BP 130/81; PULSE 102; RESP 16; TEMP 36.3; O2SAT 93
[2024-11-14] MEDS: CYCLOBENZAPRINE HCL 10 MG TABLET PO (22:08)
[2024-11-15] VITALS (10 sets, daily range): BP systolic 106–141; BP diastolic 55–68; PULSE 85–98; RESP 11–20; TEMP 36.2–36.7; O2SAT 94–98
[2024-11-15] MEDS: MORPHINE SULFATE (*CRX) 2 MG/ML INJ IV PUSH ×2 (00:40→05:18)
[2024-11-15] MEDS: clonazePAM (*CRX) 0.5 MG TABLET 1 MG PO (00:42)
--- NOTE | 2024-11-15 00:56 | P.CONOP_ITS ---
Assessment and Plan Assessment and plan (1) Ankle fracture, right: Qualifiers: Encounter type: initial encounter Fracture type: closed Qualified Code(s): S82.891A - Other fracture of right lower leg, initial encounter for closed fracture Code(s): S82.891A - Other fracture of right lower leg, initial encounter for closed fracture Status: Inactive (2) Displaced bimalleolar fracture of right ankle: Qualifiers: Encounter type: initial encounter Fracture type: closed Qualified Code(s): S82.841A - Displaced bimalleolar fracture of right lower leg, initial encounter for closed fracture Code(s): S82.841A - Displaced bimalleolar fracture of right lower leg, initial encounter for closed fracture Status: Acute Assessment and Plan: New patient evaluation for chief complaint right ankle fracture. History, physical exam and radiographs reviewed with the patient. Fall outside walking. RT ankle mejia with sig displacement. Needs reduction. Discussed the condition, nature, etiology and course of natural history with the patient. Treatment options including surgical and nonoperative treatment were reviewed. Risks and benefits of each as well as alternatives reviewed. The patient's questions were answered. Conservative treatment ice, compression and elevation. Pt would like to proceed Plan Discussed nonoperative and operative treatment options with the patient. Risks and benefits of each as well as alternatives were reviewed. All of the patient's questions were answered. The risks of surgery reviewed including but not limited to: Neurovascular damage, wound complication, infection, blood clot, pulmonary embolus, stroke, myocardial infarction, and anesthetic risks up to and including . Continued pain and possible dysfunction were explained. Specific risks of the procedure including later recurrence of deformity. No guarantees were offered. If hardware used, discussed risk of failure/ breakage and possible need for removal. If complications occur, the patient understands the need for further treatment, possible further surgery. Patient verbalizes understanding and wishes to proceed. PLAN:ORIF rt ankle fx, possible ex fix History of Present Illness HPI Consult date: 11/15/24 Requesting physician: Aida Kauffman MD Consult reason: fracture Chief complaint: R. ankle fracture Narrative: 59yo woman with DM who fell this AM (11/14/24) and sustained rt ankle fx with displacement. Denies LOC, head injury. Unable to be reduced at [facility] ER and transferred to [facility] for further care. Pt lives at home, independant ambulator without assistive devices. Review of Systems 2 Constitutional: Constitutional: Denies fever(s) Eyes: Eyes: Denies blurry vision ENT: Reports Normal hearing present Cardiovascular: Cardiovascular: Denies chest pain and Denies dyspnea Respiratory: Respiratory: Denies dyspnea and Denies wheezing Gastrointestinal: Gastrointestinal: Denies abdominal pain Genitourinary: Genitourinary: Denies urinary urgency Musculoskeletal: Musculoskeletal: Reports as per HPI and Denies numbness Integumentary/Breasts: Skin/Breast: Denies changing lesions and Denies sores Neurologic: Reports Normal hearing present, Denies behavioral changes, Denies confusion, Denies numbness and Denies convulsions Psychiatric: Psychiatric: Denies behavioral changes, Denies confusion and Denies hallucinations Endocrine: Endocrine: Denies heat intolerance Hematologic/Lymphatic: Hematologic/Lymphatic: Denies easy bleeding Allergic/Immunologic: Allergic/Immunologic: Denies wheezing PMFSH Past Medical History Medical History (Updated 11/15/24 @ 06:18 by Josefina Franco CRNA) Morbid obesity with BMI of 50.0-59.9, adult Arthritis Dyspnea on exertion COPD (chronic obstructive pulmonary disease) with chronic bronchitis Osteopenia Chronic back pain Fibromyalgia Displaced bimalleolar fracture of right ankle Hemorrhoids GERD (gastroesophageal reflux disease) Diabetes Torticollis Depression with suicidal ideation CVA (cerebral vascular accident) Dyslipidemia Hypertension Surgical History Surgical History Hx of cholecystectomy Family History Family History Father Alzheimer dementia Mother Parkinson's disease Mother No problems noted. Other Unknown family medical history Social History Social History Smoking status: Former smoker Tobacco type: cigarettes Smoking end date: 06/03/22 Alcohol intake: never Substance use: current Substance use type: marijuana Other substance usage details: USING MARIJUANA GUMMIES Last use: 11/10/2024 Do You Feel Safe in your Home?: Yes Lack of Transportation: No Lack of Food: Never True Current Housing: I Have Housing Concerned About Future Housing: No Difficulty Paying Gas/Electric Bills: No Difficulty Paying for Meds: No Currently Unemployed: No Education: Decline to Answer Difficulty w/ Childcare or Family Care: No Spiritual care concerns: No Meds Home Medications and Allergies Home Medications ?Medication ?Instructions ?Recorded ?Confirmed ?Type albuterol sulfate 90 mcg/actuation 2 puff inhalation Q4-5H PRN 04/14/21 11/14/24 History aerosol inhaler Shortness Of Breath bupropion HCl 300 mg 24 hr tablet, 300 mg PO DAILY 04/14/21 11/14/24 History extended release cyclobenzaprine 10 mg tablet 10 mg PO TID PRN Muscle Spasm 04/14/21 11/14/24 History fluoxetine 20 mg capsule 60 mg PO DAILY 04/14/21 11/14/24 History furosemide 20 mg tablet 20 mg PO DAILY 04/14/21 11/14/24 History insulin aspart U-100 100 unit/mL 1 sliding scale dose subcut 04/14/21 11/14/24 History subcutaneous solution (Novolog USEASDIRECTD U-100 Insulin aspart) lisinopril 30 mg tablet 30 mg PO DAILY 04/14/21 11/14/24 History melatonin 10 mg tablet 10 mg PO HS 04/14/21 11/14/24 History rosuvastatin 20 mg tablet 20 mg PO HS 04/14/21 11/14/24 History clonazepam 1 mg tablet 1 mg PO BID PRN Anxiety 02/16/22 11/14/24 History amlodipine 10 mg tablet 10 mg PO DAILY 10/18/24 11/14/24 History aspirin 81 mg chewable tablet 81 mg PO DAILY 10/18/24 11/14/24 History (Aspirin Childrens) calcium carbonate (Calcium 500) 500 mg PO DAILY 10/18/24 11/14/24 History fluticasone 500 mcg-salmeterol 50 1 inh inhalation Q12H 10/18/24 11/14/24 History mcg/dose blistr powdr for inhalation (Wixela Inhub) methocarbamol 500 mg tablet 500 mg PO Q8H PRN muscle spasm 10/18/24 11/14/24 History metoprolol succinate 50 mg 50 mg PO DAILY 10/18/24 11/14/24 History tablet,extended release 24 hr insulin glargine 100 unit/mL (3 10 unit (0.1 mL) subcut QPM #15 mL 10/19/24 11/14/24 Rx mL) subcutaneous pen (Lantus Solostar U-100 Insulin) ondansetron 4 mg disintegrating 4 mg PO Q8H PRN nausea and 10/19/24 11/14/24 Rx tablet vomiting #30 tabs pantoprazole 40 mg tablet,delayed 40 mg PO Q12HR #60 tabs 10/19/24 11/14/24 Rx release hydrocodone 5 mg-acetaminophen 325 1 tablet PO Q4H PRN pain #20 tabs 11/14/24 11/14/24 Rx mg tablet Allergies Allergy/AdvReac Type Severity Reaction Status Date / Time Sulfa (Sulfonamide Allergy Unknown Rash Verified 11/14/24 08:36 Antibiotics) Latex, Natural Rubber Allergy Swelling Verified 11/14/24 08:36 of Lip/Tongue/Throat Vital Signs Vital Signs - 24 hr 11/14/24 14:00 11/14/24 14:27 11/14/24 20:00 Temperature 97.4 F L Pulse Rate 89 Respiratory Rate 18 Blood Pressure 146/62 H Pulse Oximetry 94 Oxygen Delivery Room Air Room Air 11/14/24 22:00 Temperature 97.3 F L Pulse Rate 102 H Respiratory Rate 16 Blood Pressure 130/81 Pulse Oximetry 93 Oxygen Delivery Exam 2 Const: General: No confusion Orientation/consciousness: patient oriented x3 and No confusion HENMT: Head: normal to inspection, normocephalic and atraumatic Eyes: Conjunctivae: conjunctivae normal Sclera: sclerae normal Neck: Neck: supple and nontender Chest: Chest palpation & inspection: normal inspection of the chest Resp: Effort & Inspection: normal respiratory effort and no audible wheezes Cardio: Rate: regular rate Rhythm: regular rhythm : General: Yes deferred Skin: General skin exam: no rashes or lesions noted Neuro: General: patient oriented x3 and No confusion Extrem: General: capillary refill normal Right upper extremity: normal to inspection Left upper extremity: normal to inspection Right lower extremity: hip/thigh Details: no tenderness, knee Details: abnormal ROM ( Knee range of motion deferred secondary to fracture); no tenderness and no swelling, ankle Details: tenderness Location: of the lateral malleolus and anteromedially, swelling ( moderate) Details: laterally and medially, abnormal ROM Details: pain with active ROM and ecchymosis ( moderate diffusely ankle) and foot Details: vascular exam Details: dorsalis pedis pulse present and normal capillary refill, tendon exam (intact, able to flex and extend toes) and motor-sensory exam Details: light-touch normal Location: in all toes Left lower extremity: n ormal to inspection, hip/thigh Details: normal to inspection, knee Details: normal to inspection, ankle Details: normal to inspection and normal ROM ( Active flexion and extension intact); no tenderness and no swelling and foot Details: vascular exam Details: dorsalis pedis pulse present and normal capillary refill, tendon exam active flexion normal and active flexion abnormal and motor-sensory exam light-touch normal; no tenderness Psych: Affect: normal affect Results Labs 11/15/24 06:25 11/15/24 06:25 Labs: Abnormal lab results 11/14/24 11/14/24 Range/Units 16:41 17:11 WBC 13.0 H (4.5-10.0) K/mm3 Hgb 11.1 L (12.0-15.0) g/dL Hct 35.5 L (37.0-47.0) % MCH 25.3 L (26-34) pg MCHC 31.3 L (32-36) g/dl RDW 15.7 H (11.5-14.5) % Plt Count 391 H (150-375) k/mm3 MPV 11.5 H (7.4-10.4) fl Immature Gran % (Auto) 1.0 H (0-0.5) % [place] % (Auto) 13.3 H (2.6-8.5) % Eos % (Auto) 4.5 H (0-4.4) % Lymph # (Auto) 3.94 H (0.9-3.2) K/mm3 [place] # (Auto) 1.7 H (0.1-0.6) K/mm3 Eos # (Auto) 0.6 H (0-0.3) K/mm3 Baso # (Auto) 0.2 H (0.0-0.1) K/mm3 Abs Immat Gran (auto) 0.13 H (0.00-0.031) K/mm3 Glucose 335 H (65-110) mg/dL POC Capillary Glucose 320 H (65-105) mg/dl H & H 11/14/24 Range/Units 16:41 Hgb 11.1 L (12.0-15.0) g/dL Hct 35.5 L (37.0-47.0) % All other labs normal. Diagnostic results Ankle/Foot x-ray: image reviewed (rt ankle mejia fx with 50% lateral subluxation)
--- NOTE | 2024-11-15 06:16 | WPDANESEPP ---
Anes - Eval Pre Procedure Procedure: orif right ankle Date/Time: 11/15/24 06:16 Surgeon: jared Preop Diagnosis: right ankle fracture Pre Op Diagnosis: R. ankle fracture Patient Data Age: 59 Gender: F Height: 1.55 m Weight: 77.9 kg Last Vital Signs Temp 36.3 C L 11/14/24 22:00 Pulse 102 H 11/14/24 22:00 Resp 16 11/14/24 22:00 BP 130/81 11/14/24 22:00 Pulse Ox 93 11/14/24 22:00 O2 Del Method Room Air 11/14/24 20:00 Allergies Allergy/AdvReac Type Severity Reaction Status Date / Time Sulfa (Sulfonamide Allergy Unknown Rash Verified 11/14/24 08:36 Antibiotics) Latex, Natural Rubber Allergy Swelling Verified 11/14/24 08:36 of Lip/Tongue/Throat Home Medications ?Medication ?Instructions ?Recorded ?Confirmed ?Type albuterol sulfate 90 mcg/actuation 2 puff inhalation Q4-5H PRN 04/14/21 11/14/24 History aerosol inhaler Shortness Of Breath bupropion HCl 300 mg 24 hr tablet, 300 mg PO DAILY 04/14/21 11/14/24 History extended release cyclobenzaprine 10 mg tablet 10 mg PO TID PRN Muscle Spasm 04/14/21 11/14/24 History fluoxetine 20 mg capsule 60 mg PO DAILY 04/14/21 11/14/24 History furosemide 20 mg tablet 20 mg PO DAILY 04/14/21 11/14/24 History insulin aspart U-100 100 unit/mL 1 sliding scale dose subcut 04/14/21 11/14/24 History subcutaneous solution (Novolog USEASDIRECTD U-100 Insulin aspart) lisinopril 30 mg tablet 30 mg PO DAILY 04/14/21 11/14/24 History melatonin 10 mg tablet 10 mg PO HS 04/14/21 11/14/24 History rosuvastatin 20 mg tablet 20 mg PO HS 04/14/21 11/14/24 History clonazepam 1 mg tablet 1 mg PO BID PRN Anxiety 02/16/22 11/14/24 History amlodipine 10 mg tablet 10 mg PO DAILY 10/18/24 11/14/24 History aspirin 81 mg chewable tablet 81 mg PO DAILY 10/18/24 11/14/24 History (Aspirin Childrens) calcium carbonate (Calcium 500) 500 mg PO DAILY 10/18/24 11/14/24 History fluticasone 500 mcg-salmeterol 50 1 inh inhalation Q12H 10/18/24 11/14/24 History mcg/dose blistr powdr for inhalation (Wixela Inhub) methocarbamol 500 mg tablet 500 mg PO Q8H PRN muscle spasm 10/18/24 11/14/24 History metoprolol succinate 50 mg 50 mg PO DAILY 10/18/24 11/14/24 History tablet,extended release 24 hr insulin glargine 100 unit/mL (3 10 unit (0.1 mL) subcut QPM #15 mL 10/19/24 11/14/24 Rx mL) subcutaneous pen (Lantus Solostar U-100 Insulin) ondansetron 4 mg disintegrating 4 mg PO Q8H PRN nausea and 10/19/24 11/14/24 Rx tablet vomiting #30 tabs pantoprazole 40 mg tablet,delayed 40 mg PO Q12HR #60 tabs 10/19/24 11/14/24 Rx release hydrocodone 5 mg-acetaminophen 325 1 tablet PO Q4H PRN pain #20 tabs 11/14/24 11/14/24 Rx mg tablet Laboratory Tests 11/14/24 11/14/24 16:41 17:11 WBC 13.0 H K/mm3 (4.5-10.0) RBC 4.38 M/mm3 (4.2-5.4) Hgb 11.1 L g/dL (12.0-15.0) Hct 35.5 L % (37.0-47.0) MCV 81.1 fl (80-100) MCH 25.3 L pg (26-34) MCHC 31.3 L g/dl (32-36) RDW 15.7 H % (11.5-14.5) Plt Count 391 H k/mm3 (150-375) MPV 11.5 H fl (7.4-10.4) Immature Gran % (Auto) 1.0 H % (0-0.5) Neut % (Auto) 49.8 % (45.5-73.1) Lymph % (Auto) 30.2 % (18.3-44.2) [place] % (Auto) 13.3 H % (2.6-8.5) Eos % (Auto) 4.5 H % (0-4.4) Baso % (Auto) 1.2 % (0.2-1.2) Lymph # (Auto) 3.94 H K/mm3 (0.9-3.2) [place] # (Auto) 1.7 H K/mm3 (0.1-0.6) Eos # (Auto) 0.6 H K/mm3 (0-0.3) Baso # (Auto) 0.2 H K/mm3 (0.0-0.1) Abs Immat Gran (auto) 0.13 H K/mm3 (0.00-0.031) Absolute Neuts (auto) 6.5 K/mm3 (1.3-6.7) Absolute Nucleated RBC 0.000 K/mm3 (0.0-0.012) Nucleated RBC % 0.0 % (0.0-0.2) Sodium 137 mmol/L (137-145) Potassium 3.5 mmol/L (3.4-5.0) Chloride 100 mmol/L (98-107) Carbon Dioxide 28 mmol/L (22-30) Anion Gap 9 mmol/L (4-12) BUN 13 mg/dL (7-17) Creatinine 0.73 mg/dL (0.7-1.0) Estim Creat Clear Calc 66 ml/min Estimated GFR > 60 (59 - ) Glucose 335 H mg/dL (65-110) POC Capillary Glucose 320 H mg/dl (65-105) Calcium 8.6 mg/dL (8.4-10.2) Patient hx anesthesia problems: none Family hx anesthesia problems: none Results Review: All pre-operative results and documents have been reviewed as part of the pre-operative evaluation. [facility] Past Medical History Medical History (Updated 11/15/24 @ 06:18 by Josefina Franco CRNA) Morbid obesity with BMI of 50.0-59.9, adult Arthritis Dyspnea on exertion COPD (chronic obstructive pulmonary disease) with chronic bronchitis Osteopenia Chronic back pain Fibromyalgia Displaced bimalleolar fracture of right ankle Hemorrhoids GERD (gastroesophageal reflux disease) Diabetes Torticollis Depression with suicidal ideation CVA (cerebral vascular accident) Dyslipidemia Hypertension Surgical History Surgical History Hx of cholecystectomy Family History Family History Father Alzheimer dementia Mother Parkinson's disease Mother No problems noted. Other Unknown family medical history Social History Social History Smoking status: Former smoker Tobacco type: cigarettes Smoking end date: 06/03/22 Alcohol intake: never Substance use: current Substance use type: marijuana Other substance usage details: USING [employer] Last use: 11/10/2024 Do You Feel Safe in your Home?: Yes Lack of Transportation: No Lack of Food: Never True Current Housing: I Have Housing Concerned About Future Housing: No Difficulty Paying Gas/Electric Bills: No Difficulty Paying for Meds: No Currently Unemployed: No Education: Decline to Answer Difficulty w/ Childcare or Family Care: No Spiritual care concerns: No Exam Day of Procedure 11/15/24 06:16
[2024-11-15] MEDS: HYDROcodone/acetaminophen (*CRX) 5-325 MG TABLET 1 TAB PO ×3 (06:17→21:11)
[2024-11-15] MEDS: CYCLOBENZAPRINE HCL 10 MG TABLET PO ×2 (06:19→15:19)
[2024-11-15 06:34] LABS: Basophils Absolute Auto 0.2 K/mm3 (0.0-0.1); Basophils Percent Auto 1.3 % (0.2-1.2); Eosinophils Absolute Auto 0.8 K/mm3 (0-0.3); Eosinophils Percent Auto 6.9 % (0-4.4); Hematocrit 36.6 % (37.0-47.0); Immature Granulocyte Absolute 0.19 K/mm3 (0.00-0.031); Immature Granulocyte Percent A 1.6 % (0-0.5); Lymphocytes Absolute Auto 4.05 K/mm3 (0.9-3.2); Lymphocytes Percent Auto 33.2 % (18.3-44.2); Mean Corpuscular HGB Conc 30.1 g/dl (32-36); Mean Corpuscular Hemoglobin 25.1 pg (26-34); Mean Corpuscular Volume 83.4 fl (80-100); Mean Platelet Volume 11.5 fl (7.4-10.4); Monocytes Absolute Auto 1.5 K/mm3 (0.1-0.6); Monocytes Percent Auto 12.5 % (2.6-8.5); Neutrophils Absolute Auto 5.4 K/mm3 (1.3-6.7); Neutrophils Percent Auto 44.5 % (45.5-73.1); Platelet Count Result 384 k/mm3 (150-375); Red Blood Count 4.39 M/mm3 (4.2-5.4); Red Cell Distribution Width 15.8 % (11.5-14.5); White Blood Count 12.2 K/mm3 (4.5-10.0)
[2024-11-15 06:44] LABS: Anion Gap 9 mmol/L (4-12); Blood Urea Nitrogen 13 mg/dL (7-17); Calcium 8.2 mg/dL (8.4-10.2); Carbon Dioxide 27 mmol/L (22-30); Chloride 99 mmol/L (98-107); Estimated CRCL calculation 62 ml/min; Estimated Glomerular Filt Rate > 60; Glucose 284 mg/dL (65-110); Potassium 3.3 mmol/L (3.4-5.0); Sodium 135 mmol/L (137-145)
--- NOTE | 2024-11-15 07:00 | PM.IMPN ---
Progress Note: A&P Assessment and Plan (1) Displaced bimalleolar fracture of right ankle: Qualifiers: Encounter type: initial encounter Fracture type: closed Qualified Code(s): S82.841A - Displaced bimalleolar fracture of right lower leg, initial encounter for closed fracture Code(s): S82.841A - Displaced bimalleolar fracture of right lower leg, initial encounter for closed fracture Status: Acute Assessment and Plan: Mechanical ground level fall. Denies head strike and LOC. Per patient has been having difficulties with ambulation for several months. Only able to walk short distances using walker. reports at least 10 falls this month. Ankle xr showed right displaced bimalleolar fracture Ankle xr following reduction showed partial reduction of displaced bimalleolar fracture Analgesics PT/OT, weight bearing per ortho is non weight bearing Patient will likely require placement. Per patient has fallen at lest 10 times this month. Ortho consulted s/p open reduction internal fixation right ankle bimalleolar fracture with fixation of medial and lateral fractures on 11/[address] Rosales (2) Hypertension: Code(s): I10 - Essential (primary) hypertension Status: Acute Assessment and Plan: Chronic, continue home medications - amlodipine 10 mg daily - lasix 20 mg daily - lisinopril 30 mg daily - metoprolol 50 mg daily - blood pressures remain stable, continue to monitor (3) Diabetes: Code(s): E11.9 - Type 2 diabetes mellitus without complications Status: Acute Assessment and Plan: - hypoglycemia protocol - POC blood glucose ACHS - home medication - lantus 10 units and SSI aspart - correct regimen ordered - lantus 10 units and mod SSI - A1C 8.7 on 10/19 Glucose 405 following surgery. Given 6 units novolog x1. Time Spent With Patient Time with patient: 25 - 35 minutes Subjective Date/time seen: 11/15/24 07:00 Interval history: 59 year old female with past medical history of HTN, HLD, GERD, CVA, insulin dependent diabetes, and memory loss presents to the hospital for right ankle pain following a mechanical ground level fall. Patient is pleasant lying comfortably in bed with at bedside. She has no complaints at this time denying chest pain, shortness a breath, palpitations, nausea/vomiting, and abdominal pain. She remains on postoperative oxygen via nasal cannula that will continue to be weaned back to baseline room air. Per patient has been having difficulties with ambulation for several months. Only able to walk short distances using walker. reports at least 10 falls this month. He is concerned about her turning home following surgery especially given her nonweightbearing status as he is unsure that she will be able to be safe. Review of Systems Review of Systems: All systems reviewed & are unremarkable except as noted in HPI and below Exam Narrative: AF HR 96 RR 20 SpO2 96 BP 110/58 General: female in no acute respiratory distress who is nontoxic appearing, lying semi recumbent in bed. HEENT: Normocephalic. Atraumatic. Extraocular movement intact. Sclera clear and anicteric. No facial asymmetry. Chest: Lungs are clear to auscultation bilaterally. No wheezes or crackles. CV: Heart was regular rate and rhythm. S1-S2. No murmurs, gallops, or rubs. Abd: Abdomen was soft. Nontender. Nondistended. Positive bowel sounds. Ext: No clubbing, cyanosis, or edema. DP pulses bilaterally. Hard cast to the right leg. Sensation intact. Wiggling toes. Neuro: Patient is alert and oriented x4. Speech is clear. Psych: Normal mood and affect. Patient is pleasant and cooperative. Skin: Warm and dry. No rashes noted. Objective Data Vital Signs Vital Signs: Vital Signs - 24 hr 11/14/24 14:00 11/14/24 14:27 11/14/24 20:00 Temperature 97.4 F L Pulse Rate 89 Respiratory Rate 18 Blood Pressure 146/62 H Pulse Oximetry 94 Oxygen Delivery Room Air Room Air 11/14/24 22:00 Temperature 97.3 F L Pulse Rate 102 H Respiratory Rate 16 Blood Pressure 130/81 Pulse Oximetry 93 Oxygen Delivery Intake/Output Intake/Output: Intake & Output 11/12/24 11/13/24 11/14/24 11/15/24 23:59 23:59 23:59 23:59 Intake Total 240 Output Total 0 Balance 240 Meds/Results Medications: Active Medications Generic Name Dose Route Start Last Admin Trade Name Freq PRN Reason Stop Dose Admin Acetaminophen 650 mg 11/14/24 15:51 Acetaminophen 325 Mg Tablet PO Q4H PRN Mild Pain (1-3) or Fever Hydrocodone Bitart/Acetaminophen 1 tab 11/14/24 15:51 11/15/24 06:17 Hydrocodone/Acetaminophen (*Crx) 5-325 Mg Tablet PO 1 tab Q4H PRN Administration Moderate Pain (4-6) Albuterol 2 puff 11/14/24 15:53 Albuterol Sulfate (*Sp) Aerosol 1 Puff INHALATION Q4H PRN Shortness Of Breath Amlodipine Besylate 10 mg 11/15/24 09:00 Amlodipine Besylate 10 Mg Tablet PO DAILY [facility] Aspirin 81 mg 11/15/24 09:00 Aspirin 81 Mg Chewable Tablet PO DAILY ROB Clonazepam 1 mg 11/14/24 15:53 11/15/24 00:42 Clonazepam (*Crx) 0.5 Mg Tablet PO 1 mg BID PRN Administration Anxiety Cyclobenzaprine HCl 10 mg 11/14/24 15:53 11/15/24 06:19 Cyclobenzaprine Hcl 10 Mg Tablet PO 10 mg TID PRN Administration Muscle Spasm Dextrose 12.5 gm 11/14/24 16:40 Dextrose 50% 25 Gm/50 Ml Syringe IV PUSH PRN PRN Hypoglycemia Protocol Docusate Sodium 100 mg 11/14/24 17:00 11/14/24 17:58 Docusate Sodium 100 Mg Capsule PO 100 mg BID ROB Administration Fluoxetine HCl 60 mg 11/15/24 09:00 Fluoxetine Hcl 20 Mg Capsule PO DAILY [facility] Furosemide 20 mg 11/15/24 09:00 Furosemide 20 Mg Tablet PO DAILY [facility] Glucagon 1 mg 11/14/24 16:40 Glucagon For Inj 1 Mg Vial IM PRN PRN Hypoglycemia Protocol Glucose 15 gm 11/14/24 16:40 Glucose Oral Gel 15 Gm Of Glucse In 37.5 Gm Tube PO PRN PRN Hypoglycemia Protocol Dextrose 1,000 mls @ 100 mls/hr 11/14/24 16:40 Dextrose 5% 1,000 Ml IVPB PRN PRN Hypoglycemia Protocol Insulin Aspart 3 - 6 units 11/14/24 17:00 11/14/24 17:59 Insulin Aspart (*Bkc) 100 Units/Ml SUB-Q 5 units TIDWM [facility] Administration Protocol Insulin Aspart 1 - 3 units 11/14/24 21:00 11/14/24 22:08 Insulin Aspart (*Bkc) 100 Units/Ml SUB-Q 3 units HS [facility] Administration Protocol Insulin Glargine 10 units 11/14/24 18:00 11/14/24 17:58 Insulin Glargine (*Bkc) 100 Units/Ml SUB-Q 10 units QPM ROB Administration Lisinopril 30 mg 11/15/24 09:00 Lisinopril 10 Mg Tablet PO DAILY ROB Melatonin 10 mg 11/14/24 21:00 11/14/24 20:43 Melatonin 5 Mg Tablet PO 10 mg HS ROB Administration Metoprolol Succinate 50 mg 11/15/24 09:00 Metoprolol Succinate Ext Rel 50 Mg Tabcr PO DAILY [facility] Morphine Sulfate 2 mg 11/14/24 15:51 11/15/24 05:18 Morphine Sulfate (*Crx) 2 Mg/Ml Inj IV PUSH 2 mg Q4H PRN Administration Pain Rated 7-10 Pantoprazole Sodium 40 mg 11/14/24 21:00 11/14/24 20:43 Pantoprazole 40 Mg Tablet PO 40 mg Q12HR ROB Administration Rosuvastatin Calcium 20 mg 11/14/24 21:00 11/14/24 20:43 Rosuvastatin 20 Mg Tablet PO 20 mg HS ROB Administration Radiology Results: ITS Impressions Chest X-Ray 11/15/24 06:36 Impression: Suspected COPD with left basilar atelectasis or scarring. Labs Labs: Laboratory Results - last 24 hr 11/14/24 11/14/24 11/15/24 16:41 17:11 06:25 WBC 13.0 H 12.2 H RBC 4.38 4.39 Hgb 11.1 L 11.0 L Hct 35.5 L 36.6 L MCV 81.1 83.4 MCH 25.3 L 25.1 L MCHC 31.3 L 30.1 L RDW 15.7 H 15.8 H Plt Count 391 H 384 H MPV 11.5 H 11.5 H Immature Gran % (Auto) 1.0 H 1.6 H Neut % (Auto) 49.8 44.5 L Lymph % (Auto) 30.2 33.2 [place] % (Auto) 13.3 H 12.5 H Eos % (Auto) 4.5 H 6.9 H Baso % (Auto) 1.2 1.3 H Lymph # (Auto) 3.94 H 4.05 H [place] # (Auto) 1.7 H 1.5 H Eos # (Auto) 0.6 H 0.8 H Baso # (Auto) 0.2 H 0.2 H Abs Immat Gran (auto) 0.13 H 0.19 H Absolute Neuts (auto) 6.5 5.4 Absolute Nucleated RBC 0.000 0.000 Nucleated RBC % 0.0 0.0 Sodium 137 135 L Potassium 3.5 3.3 L Chloride 100 99 Carbon Dioxide 28 27 Anion Gap 9 9 BUN 13 13 Creatinine 0.73 0.78 Estim Creat Clear Calc 66 62 Estimated GFR > 60 > 60 Glucose 335 H 284 H POC Capillary Glucose 320 H Calcium 8.6 8.2 L
[2024-11-15 07:28] LABS: Glucose Point of Care 363 mg/dl (65-105)
[2024-11-15 07:40] LABS: Glucose Point of Care 289 mg/dl (65-105)
[2024-11-15] MEDS: METOPROLOL SUCCINATE EXT REL 50 MG TABCR PO (08:14)
--- NOTE | 2024-11-15 08:15 | P.PNAN_ITS ---
Anes - Eval Final PreProcedure Day of Procedure 11/15/24 08:15 Patient weight: obese Heart: regular rate and rhythm Lungs: clear to auscultation Airway: Mallampati scale class II Neurological: alert and oriented Last oral intake: >/= 8 hours ASA classification: III Emergent: no Anesthetic plan: proceed Anesthesia type and monitoring: general LMA and standard monitoring Results Review: All pre-operative results and documents have been reviewed as part of the pre- operative evaluation. Informed Consent: The patient's anesthetic plan and its attendant risks and benefits were discussed with the patient/family/POA. Questions were solicited and answers provided to the satisfaction of the patient/family/POA.
--- NOTE | 2024-11-15 08:17 | WPDHPUPDATE1 ---
History and Physical Update Update Date/Time: 11/15/24 08:17 History and Physical has been reviewed, including an updated exam of the patient. There are NO changes in the patient's condition. Risks, benefits, and alternatives have been discussed and questions answered. Patient agrees to proceed with procedure.
[2024-11-15] MEDS: BUPIVACAINE/EPINEPHRINE 0.5% 30 ML VIAL INFILTRATE (08:18)
[2024-11-15] MEDS: ceFAZolin 2 GM/D5W 50 ML 2 GM/50 ML BAG IVPB ×3 (08:48→21:00)
[2024-11-15] MEDS: LACTATED RINGERS 1,000 ML 30 ML IV CONT ×2 (09:52→09:53)
[2024-11-15 10:05] LABS: Glucose Point of Care 300 mg/dl (65-105)
--- NOTE | 2024-11-15 10:15 | W.PM.PROC2 ---
Procedure Note - Detailed Date of Procedure 11/15/24 Pre-op Diagnosis R. ankle fracture Post-op Diagnosis Same Procedure Performed Open reduction internal fixation right ankle bimalleolar fracture with fixation of medial and lateral fractures. 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 Presents for operative fixation. Description of Procedure After informed consent, the operative extremity was marked in the preoperative holding area. Patient received intravenous antibiotics. Patient was then taken to the operating room and underwent general anesthesia by the anesthesia team. They were positioned supine on the operating room table. A time-out was performed confirming the patient, site of the surgery, operative plan. Right Lower extremity then prepped and draped in the usual sterile surgical fashion using ChloraPrep skin solution. Foot and ankle exsanguinated and a thigh tourniquet inflated to 250 mmHg. Longitudinal incision made over the lateral ankle distal fibula with a 15 blade knife. Hemostasis controlled with electrocautery. Full-thickness soft tissue flaps developed and the fascia was incised in line with the skin incision. Fracture identified and cleared with a dental pick, irrigation and rongeur. Fracture reduced and held with bone-holding clamp. Image intensification confirmed reduction of the fracture and the ankle mortise. Short oblique fracture pattern did not allow lag screw fixation. Neutralization with a lateral plate with unicortical screws distal to fracture and bicortical screws proximal to the fracture. 2 screws placed across the syndesmosis into the tibia for added fixation given the patient's diabetes and osteoporosis. Good alignment and stability of the fracture noted. Image intensification used to confirm reduction of the fracture and placement of the hardware. Fascia repaired with 00 Vicryl interrupted suture. Subcutaneous tissue repaired with 000 Monocryl interrupted suture and 0000 nylon running suture. Medial side then addressed. Longitudinal incision made over the medial ankle medial malleolus with a 15 blade knife. Hemostasis controlled with electrocautery. Fracture reduced and held with K-wire. Image intensification confirmed reduction of the fracture and the ankle mortise. Fixation achieved with a 4.0 mm partially threaded cannulated screw. Good alignment and stability of the fracture noted. Image intensification used to confirm reduction of the fracture and placement of the hardware. Wound thoroughly irrigated with antibiotic solution. Subcutaneous tissue repaired with 000 Monocryl interrupted suture. Stress of the ankle performed with good stability of the ankle mortise in all directions. Sterile dressings applied followed by bulky padded dressing with fiberglass cast. Patient awoken from anesthesia, extubated and taken to the recovery room in stable condition. All sponge, needle and instrument counts correct at the end of the case. Palpable dorsalis pedis pulse noted prior to dressing. Implants Arthrex distal fibular plate with locking and nonlocking screws. Medial 4.0 mm cannulated screw x1. Estimated Blood Loss 10 Tourniquet Time Total Tourniquet Time: 60 Urine Output 500 Drains No Packing No Pathology None sent Complications None Condition Stable Disposition PACU [facility] Billing Surgery - Charge Forward: Surgery Billing ([id number])
[2024-11-15 11:43] LABS: Glucose Point of Care 337 mg/dl (65-105)
[2024-11-15] MEDS: FLUoxetine HCL 20 MG CAPSULE 60 MG PO (11:48)
[2024-11-15] MEDS: INSULIN ASPART (*BKC) 100 UNITS/ML SUB-Q ×3 (11:49→21:17)
[2024-11-15 14:08] LABS: Glucose Point of Care 405 mg/dl (65-105)
[2024-11-15] MEDS: INSULIN ASPART (*BKC) 100 UNITS/ML 6 UNITS SUB-Q (14:20)
[2024-11-15] MEDS: IBUPROFEN IV 800 MG/200 ML 800 MG/200 ML BAG 400 MG IVPB (15:18)
[2024-11-15 16:47] LABS: Glucose Point of Care 395 mg/dl (65-105)
[2024-11-15] MEDS: ONDANSETRON INJ 4 MG/2 ML VIAL IV PUSH (17:21)
[2024-11-15] MEDS: DOCUSATE SODIUM 100 MG CAPSULE PO (17:21)
[2024-11-15] MEDS: INSULIN GLARGINE (*BKC) 100 UNITS/ML 10 UNITS SUB-Q (17:23)
[2024-11-15 20:41] LABS: Glucose Point of Care 400 mg/dl (65-105)
[2024-11-15 20:41] LABS: Glucose Point of Care 397 mg/dl (65-105)
[2024-11-15] MEDS: NICOTINE (*PBKC) 14 MG PATCH 1 PATCH TRANSDERM (21:09)
[2024-11-15] MEDS: ROSUVASTATIN 20 MG TABLET PO (21:11)
[2024-11-15] MEDS: MELATONIN 5 MG TABLET 10 MG PO (21:11)
[2024-11-15] MEDS: PANTOPRAZOLE 40 MG TABLET PO (21:11)
[2024-11-16] VITALS (10 sets, daily range): BP systolic 108–151; BP diastolic 54–73; PULSE 70–91; RESP 16–18; TEMP 36–36.8; O2SAT 92–96
[2024-11-16] MEDS: ceFAZolin 2 GM/D5W 50 ML 2 GM/50 ML BAG IVPB (04:30)
[2024-11-16] MEDS: ACETAMINOPHEN 325 MG TABLET 650 MG PO (05:49)
[2024-11-16] MEDS: clonazePAM (*CRX) 0.5 MG TABLET 1 MG PO ×2 (05:49→15:08)
[2024-11-16 06:06] LABS: Basophils Absolute Auto 0.1 K/mm3 (0.0-0.1); Basophils Percent Auto 0.4 % (0.2-1.2); Eosinophils Percent Auto 0.1 % (0-4.4); Hemoglobin 10.7 g/dL (12.0-15.0); Immature Granulocyte Absolute 0.42 K/mm3 (0.00-0.031); Immature Granulocyte Percent A 2.3 % (0-0.5); Lymphocytes Absolute Auto 2.56 K/mm3 (0.9-3.2); Lymphocytes Percent Auto 13.9 % (18.3-44.2); Mean Corpuscular HGB Conc 30.6 g/dl (32-36); Mean Corpuscular Hemoglobin 25.1 pg (26-34); Mean Corpuscular Volume 82.2 fl (80-100); Mean Platelet Volume 11.8 fl (7.4-10.4); Monocytes Absolute Auto 2.1 K/mm3 (0.1-0.6); Monocytes Percent Auto 11.5 % (2.6-8.5); Neutrophils Absolute Auto 13.2 K/mm3 (1.3-6.7); Neutrophils Percent Auto 71.8 % (45.5-73.1); Nucleated Red Blood Cells Perc 0.2 % (0.0-0.2); Platelet Count Result 469 k/mm3 (150-375); Red Blood Count 4.26 M/mm3 (4.2-5.4); Red Cell Distribution Width 15.9 % (11.5-14.5); White Blood Count 18.4 K/mm3 (4.5-10.0)
[2024-11-16 06:28] LABS: Anion Gap 11 mmol/L (4-12); Blood Urea Nitrogen 11 mg/dL (7-17); Calcium 8.7 mg/dL (8.4-10.2); Carbon Dioxide 26 mmol/L (22-30); Chloride 99 mmol/L (98-107); Estimated CRCL calculation 68 ml/min; Estimated Glomerular Filt Rate > 60; Glucose 334 mg/dL (65-110); Potassium 3.5 mmol/L (3.4-5.0); Sodium 136 mmol/L (137-145)
[2024-11-16 07:48] LABS: Glucose Point of Care 312 mg/dl (65-105)
--- NOTE | 2024-11-16 07:55 | PM.IMPN ---
Progress Note: A&P Assessment and Plan (1) Displaced bimalleolar fracture of right ankle: Qualifiers: Encounter type: initial encounter Fracture type: closed Qualified Code(s): S82.841A - Displaced bimalleolar fracture of right lower leg, initial encounter for closed fracture Code(s): S82.841A - Displaced bimalleolar fracture of right lower leg, initial encounter for closed fracture Status: Acute Assessment and Plan: Mechanical ground level fall. Denies head strike and LOC. Per patient has been having difficulties with ambulation for several months. Only able to walk short distances using walker. reports at least 10 falls this month. Ankle xr showed right displaced bimalleolar fracture Ankle xr following reduction showed partial reduction of displaced bimalleolar fracture Analgesics PT/OT, weight bearing per ortho is non weight bearing Plan for patient to go to SNF. Per patient has fallen at least 10 times this month. Ortho consulted s/p open reduction internal fixation right ankle bimalleolar fracture with fixation of medial and lateral fractures on 11/[address] Rosales outpatient follow up in 1-2 weeks (2) Hypertension: Code(s): I10 - Essential (primary) hypertension Status: Acute Assessment and Plan: Chronic, continue home medications - amlodipine 10 mg daily - lasix 20 mg daily - lisinopril 30 mg daily - metoprolol 50 mg daily - blood pressures remain stable, continue to monitor (3) Diabetes: Code(s): E11.9 - Type 2 diabetes mellitus without complications Status: Acute Assessment and Plan: - hypoglycemia protocol - POC blood glucose ACHS - home medication - lantus 10 units and SSI aspart - correct regimen ordered - lantus 10 units and mod SSI - A1C 9.9 on 11/16 Glucose 405 following surgery. Given 6 units novolog x1. Continue to monitor glucose. Time Spent With Patient Time with patient: 25 - 35 minutes Subjective Date/time seen: 11/16/24 07:55 Interval history: 59 year old female with past medical history of HTN, HLD, GERD, CVA, insulin dependent diabetes, and memory loss presents to the hospital for right ankle pain following a mechanical ground level fall. Patient is pleasant sitting up comfortably in bed. Per RN patient became increasingly confused overnight and attempted to get out of bed, resulting in her bearing weight on the right ankle. Per ortho/prosthetic aide was made aware. Patient denies any increased pain, tingling, numbness to the area. She is AOx3 on assessment. She has no other complaints denying chest pain, palpitations, shortness of breath, nausea/vomiting and abdominal pain. Review of Systems Review of Systems: All systems reviewed & are unremarkable except as noted in HPI and below Exam Narrative: AF HR 87 RR 16 SpO2 94 BP 136/56 General: female in no acute respiratory distress who is nontoxic appearing, lying semi recumbent in bed. HEENT: Normocephalic. Atraumatic. Extraocular movement intact. Sclera clear and anicteric. No facial asymmetry. Chest: Lungs are clear to auscultation bilaterally. No wheezes or crackles. CV: Heart was regular rate and rhythm. S1-S2. No murmurs, gallops, or rubs. Abd: Abdomen was soft. Nontender. Nondistended. Positive bowel sounds. Ext: No clubbing, cyanosis, or edema. DP pulses bilaterally. Hard cast to the right leg. Sensation intact. Wiggling toes. Neuro: Patient is alert and oriented x3. Speech is clear. Objective Data Vital Signs Vital Signs: Vital Signs - 24 hr 11/15/24 08:00 11/15/24 09:53 11/15/24 10:05 Temperature 98.1 F 98.1 F Pulse Rate 90 98 Respiratory Rate 12 11 L Blood Pressure 106/68 120/62 Pulse Oximetry 96 95 98 Oxygen Delivery Room Air Simple Face Mask Simple Face Mask Oxygen Flow Rate 10 10 11/15/24 10:20 11/15/24 10:35 11/15/24 10:50 Temperature Pulse Rate 97 96 96 Respiratory Rate 12 16 20 Blood Pressure 122/62 116/65 110/58 L Pulse Oximetry 96 95 96 Oxygen Delivery Nasal Cannula Nasal Cannula Nasal Cannula Oxygen Flow Rate 2 2 2 11/15/24 14:11 11/15/24 16:51 11/15/24 22:00 Temperature 97.7 F 97.7 F Pulse Rate 94 94 96 Respiratory Rate 18 16 18 Blood Pressure 140/67 141/55 H 134/64 Pulse Oximetry 94 96 96 Oxygen Delivery Oxygen Flow Rate 11/16/24 00:51 11/16/24 06:00 Temperature 98.1 F 96.8 F L Pulse Rate 91 91 Respiratory Rate 18 16 Blood Pressure 144/73 H 108/60 Pulse Oximetry 95 94 Oxygen Delivery Oxygen Flow Rate Intake/Output Intake/Output: Intake & Output 11/13/24 11/14/24 11/15/24 11/16/24 23:59 23:59 23:59 23:59 Intake Total 240 2180 Output Total 0 2400 Balance 240 -220 Meds/Results Medications: Active Medications Generic Name Dose Route Start Last Admin Trade Name Freq PRN Reason Stop Dose Admin Acetaminophen 650 mg 11/14/24 15:51 11/16/24 05:49 Acetaminophen 325 Mg Tablet PO 650 mg Q4H PRN Administration Mild Pain (1-3) or Fever Hydrocodone Bitart/Acetaminophen 1 tab 11/14/24 15:51 11/15/24 21:11 Hydrocodone/Acetaminophen (*Crx) 5-325 Mg Tablet PO 1 tab Q4H PRN Administration Moderate Pain (4-6) Albuterol 2 puff 11/14/24 15:53 Albuterol Sulfate (*Sp) Aerosol 1 Puff INHALATION Q4H PRN Shortness Of Breath Amlodipine Besylate 10 mg 11/15/24 09:00 11/15/24 09:17 Amlodipine Besylate 10 Mg Tablet PO Not Given DAILY [facility] Aspirin 81 mg 11/15/24 09:00 11/15/24 09:18 Aspirin 81 Mg Chewable Tablet PO Not Given DAILY [facility] Calcium Carbonate 500 mg 11/16/24 09:00 Calcium Carbonate (Tums) 500 Mg (200 Mg Elemental) PO DAILY [facility] Clonazepam 1 mg 11/14/24 15:53 11/16/24 05:49 Clonazepam (*Crx) 0.5 Mg Tablet PO 1 mg BID PRN Administration Anxiety Cyclobenzaprine HCl 10 mg 11/14/24 15:53 11/15/24 15:19 Cyclobenzaprine Hcl 10 Mg Tablet PO 10 mg TID PRN Administration Muscle Spasm Dextrose 12.5 gm 11/14/24 16:40 Dextrose 50% 25 Gm/50 Ml Syringe IV PUSH PRN PRN Hypoglycemia Protocol Docusate Sodium 100 mg 11/14/24 17:00 11/15/24 17:21 Docusate Sodium 100 Mg Capsule PO 100 mg BID ROB Administration Fluoxetine HCl 60 mg 11/15/24 09:00 11/15/24 11:48 Fluoxetine Hcl 20 Mg Capsule PO 60 mg DAILY ROB Administration Furosemide 20 mg 11/15/24 09:00 11/15/24 09:18 Furosemide 20 Mg Tablet PO Not Given DAILY ROB Glucagon 1 mg 11/14/24 16:40 Glucagon For Inj 1 Mg Vial IM PRN PRN Hypoglycemia Protocol Glucose 15 gm 11/14/24 16:40 Glucose Oral Gel 15 Gm Of Glucse In 37.5 Gm Tube PO PRN PRN Hypoglycemia Protocol Dextrose 1,000 mls @ 100 mls/hr 11/14/24 16:40 Dextrose 5% 1,000 Ml IVPB PRN PRN Hypoglycemia Protocol Lactated Ringer's 1,000 mls @ 30 mls/hr 11/15/24 10:10 11/15/24 10:55 Lr - Lactated Ringers Iv IV CONT Infused .Q24H ROB Infusion Ibuprofen 800 mg in 200 mls @ 400 mls/hr 11/15/24 11:06 11/15/24 15:18 Caldolor 800 Mg/200 Ml IVPB 400 mls/hr Q6H PRN Administration Breakthrough Pain Rated 1-3 or NPO Insulin Aspart 3 - 6 units 11/14/24 17:00 11/15/24 17:22 Insulin Aspart (*Bkc) 100 Units/Ml SUB-Q 6 units TIDWM ROB Administration Protocol Insulin Aspart 1 - 3 units 11/14/24 21:00 11/15/24 21:17 Insulin Aspart (*Bkc) 100 Units/Ml SUB-Q 3 units HS ROB Administration Protocol Insulin Glargine 10 units 11/14/24 18:00 11/15/24 17:23 Insulin Glargine (*Bkc) 100 Units/Ml SUB-Q 10 units QPM ROB Administration Lisinopril 30 mg 11/15/24 09:00 11/15/24 09:18 Lisinopril 10 Mg Tablet PO Not Given DAILY ROB Melatonin 10 mg 11/14/24 21:00 11/15/24 21:11 Melatonin 5 Mg Tablet PO 10 mg HS ROB Administration Methocarbamol 500 mg 11/15/24 10:09 Methocarbamol 500 Mg Tablet PO Q8H PRN muscle spasm Metoprolol Succinate 50 mg 11/15/24 09:00 11/15/24 08:14 Metoprolol Succinate Ext Rel 50 Mg Tabcr PO 50 mg DAILY ROB Administration Morphine Sulfate 2 mg 11/14/24 15:51 11/15/24 05:18 Morphine Sulfate (*Crx) 2 Mg/Ml Inj IV PUSH 2 mg Q4H PRN Administration Pain Rated 7-10 Naloxone HCl 0.1 mg 11/15/24 11:06 Naloxone Hcl 0.4 Mg/Ml Vial IV PUSH Q2M PRN Opiate Reversal Nicotine 1 patch 11/15/24 20:15 11/15/24 21:09 Nicotine (*Pbkc) 14 Mg Patch TRANSDERM 1 patch DAILY ROB Administration Ondansetron HCl 4 mg 11/15/24 11:06 11/15/24 17:21 Ondansetron Inj 4 Mg/2 Ml Vial IV PUSH 4 mg Q4H PRN Administration Nausea And Vomiting Pantoprazole Sodium 40 mg 11/14/24 21:00 11/15/24 21:11 Pantoprazole 40 Mg Tablet PO 40 mg Q12HR ROB Administration Polyethylene Glycol 17 gm 11/16/24 09:00 Polyethylene Glycol 3350 17 Gm Powd.Pack PO QAM ROB Rosuvastatin Calcium 20 mg 11/14/24 21:00 11/15/24 21:11 Rosuvastatin 20 Mg Tablet PO 20 mg HS ROB Administration Radiology Results: ITS Impressions Chest X-Ray 11/15/24 06:36 Impression: Suspected COPD with left basilar atelectasis or scarring. Intraoperative X-Ray 11/15/24 14:13 IMPRESSION: 1. Near-anatomic alignment post open reduction internal fixation of trimalleolar fracture of the right ankle. See procedure note for further detail. Labs Labs: Laboratory Results - last 24 hr 11/15/24 11/15/24 11/15/24 10:02 11:37 14:04 WBC RBC Hgb Hct MCV MCH MCHC RDW Plt Count MPV Immature Gran % (Auto) Neut % (Auto) Lymph % (Auto) [place] % (Auto) Eos % (Auto) Baso % (Auto) Lymph # (Auto) [place] # (Auto) Eos # (Auto) Baso # (Auto) Abs Immat Gran (auto) Absolute Neuts (auto) Absolute Nucleated RBC Nucleated RBC % Sodium Potassium Chloride Carbon Dioxide Anion Gap BUN Creatinine Estim Creat Clear Calc Estimated GFR Glucose POC Capillary Glucose 300 H 337 H 405 H Calcium 11/15/24 11/15/24 11/15/24 16:39 20:33 20:34 WBC RBC Hgb Hct MCV MCH MCHC RDW Plt Count MPV Immature Gran % (Auto) Neut % (Auto) Lymph % (Auto) [place] % (Auto) Eos % (Auto) Baso % (Auto) Lymph # (Auto) [place] # (Auto) Eos # (Auto) Baso # (Auto) Abs Immat Gran (auto) Absolute Neuts (auto) Absolute Nucleated RBC Nucleated RBC % Sodium Potassium Chloride Carbon Dioxide Anion Gap BUN Creatinine Estim Creat Clear Calc Estimated GFR Glucose POC Capillary Glucose 395 H 400 H 397 H Calcium 11/16/24 11/16/24 05:36 07:34 WBC 18.4 H RBC 4.26 Hgb 10.7 L Hct 35.0 L MCV 82.2 MCH 25.1 L MCHC 30.6 L RDW 15.9 H Plt Count 469 H MPV 11.8 H Immature Gran % (Auto) 2.3 H Neut % (Auto) 71.8 Lymph % (Auto) 13.9 L [place] % (Auto) 11.5 H Eos % (Auto) 0.1 Baso % (Auto) 0.4 Lymph # (Auto) 2.56 [place] # (Auto) 2.1 H Eos # (Auto) 0.0 Baso # (Auto) 0.1 Abs Immat Gran (auto) 0.42 H Absolute Neuts (auto) 13.2 H Absolute Nucleated RBC 0.040 H Nucleated RBC % 0.2 Sodium 136 L Potassium 3.5 Chloride 99 Carbon Dioxide 26 Anion Gap 11 BUN 11 Creatinine 0.71 Estim Creat Clear Calc 68 Estimated GFR > 60 Glucose 334 H POC Capillary Glucose 312 H Calcium 8.7 Quality VTE Prophylaxis VTE prophylaxis: mechanical ordered
[2024-11-16] MEDS: INSULIN ASPART (*BKC) 100 UNITS/ML SUB-Q ×4 (07:59→22:23)
[2024-11-16] MEDS: DOCUSATE SODIUM 100 MG CAPSULE PO ×2 (08:30→17:19)
[2024-11-16] MEDS: FUROSEMIDE 20 MG TABLET PO (08:30)
[2024-11-16] MEDS: CALCIUM CARBONATE (TUMS) 500 MG (200 MG ELEMENTAL) PO (08:30)
[2024-11-16] MEDS: ASPIRIN 81 MG CHEWABLE TABLET PO (08:30)
[2024-11-16] MEDS: amLODIPine BESYLATE 10 MG TABLET PO (08:30)
[2024-11-16] MEDS: FLUoxetine HCL 20 MG CAPSULE 60 MG PO (08:30)
[2024-11-16] MEDS: PANTOPRAZOLE 40 MG TABLET PO ×2 (08:31→21:22)
[2024-11-16] MEDS: polyethylene glycoL 3350 17 GM POWD.PACK PO (08:31)
[2024-11-16] MEDS: lisinopriL 10 MG TABLET 30 MG PO (08:31)
[2024-11-16] MEDS: METOPROLOL SUCCINATE EXT REL 50 MG TABCR PO (08:31)
[2024-11-16] MEDS: NICOTINE (*PBKC) 14 MG PATCH 1 PATCH TRANSDERM (09:26)
[2024-11-16] MEDS: HYDROcodone/acetaminophen (*CRX) 5-325 MG TABLET 1 TAB PO ×3 (09:26→21:22)
--- NOTE | 2024-11-16 10:19 | WPDANESPN ---
Anes - Prog Note Post-Op Date/Time: 11/16/24 10:19 Cardiovascular status: normal Respiratory status: normal Airway patency: baseline Mental status: baseline Vital Signs: Last Vital Signs Temp 36.0 C L 11/16/24 06:00 Pulse 70 11/16/24 08:31 Resp 16 11/16/24 06:00 BP 151/73 H 11/16/24 08:29 Pulse Ox 92 11/16/24 08:20 O2 Del Method Room Air 11/16/24 08:57 O2 Flow Rate 2 11/15/24 10:50 FiO2 21 11/16/24 08:20 Pain Score (VAS): 3 I/O: Intake & Output 11/15/24 11/16/24 11/16/24 23:59 07:59 15:59 Intake Total 1390 Output Total 700 Balance 690 Laboratory Tests 11/16/24 05:36 11/16/24 05:36 11/15/24 11/15/24 11/15/24 11:37 14:04 16:39 WBC RBC Hgb Hct MCV MCH MCHC RDW Plt Count MPV Immature Gran % (Auto) Neut % (Auto) Lymph % (Auto) [place] % (Auto) Eos % (Auto) Baso % (Auto) Lymph # (Auto) [place] # (Auto) Eos # (Auto) Baso # (Auto) Abs Immat Gran (auto) Absolute Neuts (auto) Absolute Nucleated RBC Nucleated RBC % Sodium Potassium Chloride Carbon Dioxide Anion Gap BUN Creatinine Estim Creat Clear Calc Estimated GFR Glucose POC Capillary Glucose 337 H 405 H 395 H Hemoglobin A1c Calcium 11/15/24 11/15/24 11/16/24 20:33 20:34 05:32 WBC RBC Hgb Hct MCV MCH MCHC RDW Plt Count MPV Immature Gran % (Auto) Neut % (Auto) Lymph % (Auto) [place] % (Auto) Eos % (Auto) Baso % (Auto) Lymph # (Auto) [place] # (Auto) Eos # (Auto) Baso # (Auto) Abs Immat Gran (auto) Absolute Neuts (auto) Absolute Nucleated RBC Nucleated RBC % Sodium Potassium Chloride Carbon Dioxide Anion Gap BUN Creatinine Estim Creat Clear Calc Estimated GFR Glucose POC Capillary Glucose 400 H 397 H Hemoglobin A1c Pending Calcium 11/16/24 11/16/24 05:36 07:34 WBC 18.4 H RBC 4.26 Hgb 10.7 L Hct 35.0 L MCV 82.2 MCH 25.1 L MCHC 30.6 L RDW 15.9 H Plt Count 469 H MPV 11.8 H Immature Gran % (Auto) 2.3 H Neut % (Auto) 71.8 Lymph % (Auto) 13.9 L [place] % (Auto) 11.5 H Eos % (Auto) 0.1 Baso % (Auto) 0.4 Lymph # (Auto) 2.56 [place] # (Auto) 2.1 H Eos # (Auto) 0.0 Baso # (Auto) 0.1 Abs Immat Gran (auto) 0.42 H Absolute Neuts (auto) 13.2 H Absolute Nucleated RBC 0.040 H Nucleated RBC % 0.2 Sodium 136 L Potassium 3.5 Chloride 99 Carbon Dioxide 26 Anion Gap 11 BUN 11 Creatinine 0.71 Estim Creat Clear Calc 68 Estimated GFR > 60 Glucose 334 H POC Capillary Glucose 312 H Hemoglobin A1c Calcium 8.7 Patient Feedback: Patient satisfied with anesthetic care.
[2024-11-16] MEDS: IBUPROFEN IV 800 MG/200 ML 800 MG/200 ML BAG 400 MG IVPB (11:06)
[2024-11-16 11:58] LABS: Glucose Point of Care 293 mg/dl (65-105)
[2024-11-16 13:08] LABS: Hemoglobin A1C 9.9 % (<5.7)
--- NOTE | 2024-11-16 13:19 | PM.PNORT ---
Progress Note: A&P Assessment and Plan (1) Displaced bimalleolar fracture of right ankle: Qualifiers: Encounter type: initial encounter Fracture type: closed Qualified Code(s): S82.841A - Displaced bimalleolar fracture of right lower leg, initial encounter for closed fracture Code(s): S82.841A - Displaced bimalleolar fracture of right lower leg, initial encounter for closed fracture Status: Acute Assessment and Plan: POD #1: Open reduction internal fixation right ankle bimalleolar fracture with fixation of medial and lateral fractures. Pain control. PT/OT. NWB RLE. High Fall Risk Precautions. Ice. Elevate. Dispo: TERESA given recurrent falls recently. Arrange for outpatient follow up in 1-2 weeks. Time Spent With Patient Time: Reviewed history, exam, radiographs and current labs with attending MD and covering surgeon, Dr. Rosales, who agrees with current plan as indicated above. No further recommendations from Dr. Rosales at this time. Subjective Subjective Date/Time Seen: 11/16/24 13:19 Post Op day: 1 Interval history: POD #1: Open reduction internal fixation right ankle bimalleolar fracture with fixation of medial and lateral fractures. Patient denies pain. Some confusion s/p surgery with concerns she walked on the cast. Review of Systems Review of Systems: All systems reviewed & are unremarkable except as noted in HPI and below Exam Const: General: comfortable and no acute distress Resp: Effort & Inspection: normal respiratory effort Cardio: Rate: regular rate Rhythm: regular rhythm GI: GI Palp: Yes Soft to palpation Neuro: Sensory Exam: normal sensation Extrem: Right lower extremity: knee Details: normal to inspection; no tenderness and no swelling, lower leg (Cast c/d/i ), ankle (cast c/d/i) and foot (cast c/d/i ) Details: toes with normal ROM Objective Data Vital Signs Vital Signs: Vital Signs - 24 hr 11/15/24 14:11 11/15/24 16:51 11/15/24 22:00 Temperature 36.5 C 36.5 C Pulse Rate 94 94 96 Respiratory Rate 18 16 18 Blood Pressure 140/67 141/55 H 134/64 Pulse Oximetry 94 96 96 Oxygen Delivery Fraction of Inspired Oxygen 11/16/24 00:51 11/16/24 06:00 11/16/24 08:00 Temperature 36.7 C 36.0 C L Pulse Rate 91 91 Respiratory Rate 18 16 Blood Pressure 144/73 H 108/60 Pulse Oximetry 95 94 92 Oxygen Delivery Room Air Fraction of Inspired Oxygen 11/16/24 08:20 11/16/24 08:29 11/16/24 08:31 Temperature Pulse Rate 70 Respiratory Rate Blood Pressure 151/73 H Pulse Oximetry 92 Oxygen Delivery Room Air Fraction of Inspired Oxygen 21 11/16/24 08:51 11/16/24 08:57 Temperature 36.4 C Pulse Rate 71 Respiratory Rate 16 Blood Pressure 149/69 H Pulse Oximetry 96 Oxygen Delivery Room Air Fraction of Inspired Oxygen Intake/Output Intake/Output: Intake & Output 11/13/24 11/14/24 11/15/24 11/16/24 23:59 23:59 23:59 23:59 Intake Total 240 2380 240 Output Total 0 2400 Balance 240 -20 240 Meds/Results Medications: Active Medications Generic Name Dose Route Start Last Admin Trade Name Freq PRN Reason Stop Dose Admin Acetaminophen 650 mg 11/14/24 15:51 11/16/24 05:49 Acetaminophen 325 Mg Tablet PO 650 mg Q4H PRN Administration Mild Pain (1-3) or Fever Hydrocodone Bitart/Acetaminophen 1 tab 11/14/24 15:51 11/16/24 09:26 Hydrocodone/Acetaminophen (*Crx) 5-325 Mg Tablet PO 1 tab Q4H PRN Administration Moderate Pain (4-6) Albuterol 2 puff 11/14/24 15:53 Albuterol Sulfate (*Sp) Aerosol 1 Puff INHALATION Q4H PRN Shortness Of Breath Amlodipine Besylate 10 mg 11/15/24 09:00 11/16/24 08:30 Amlodipine Besylate 10 Mg Tablet PO 10 mg DAILY ROB Administration Aspirin 81 mg 11/15/24 09:00 11/16/24 08:30 Aspirin 81 Mg Chewable Tablet PO 81 mg DAILY ROB Administration Calcium Carbonate 500 mg 11/16/24 09:00 11/16/24 08:30 Calcium Carbonate (Tums) 500 Mg (200 Mg Elemental) PO 500 mg DAILY ROB Administration Clonazepam 1 mg 11/14/24 15:53 11/16/24 05:49 Clonazepam (*Crx) 0.5 Mg Tablet PO 1 mg BID PRN Administration Anxiety Cyclobenzaprine HCl 10 mg 11/14/24 15:53 11/15/24 15:19 Cyclobenzaprine Hcl 10 Mg Tablet PO 10 mg TID PRN Administration Muscle Spasm Dextrose 12.5 gm 11/14/24 16:40 Dextrose 50% 25 Gm/50 Ml Syringe IV PUSH PRN PRN Hypoglycemia Protocol Docusate Sodium 100 mg 11/14/24 17:00 11/16/24 08:30 Docusate Sodium 100 Mg Capsule PO 100 mg BID ROB Administration Fluoxetine HCl 60 mg 11/15/24 09:00 11/16/24 08:30 Fluoxetine Hcl 20 Mg Capsule PO 60 mg DAILY ROB Administration Furosemide 20 mg 11/15/24 09:00 11/16/24 08:30 Furosemide 20 Mg Tablet PO 20 mg DAILY ROB Administration Glucagon 1 mg 11/14/24 16:40 Glucagon For Inj 1 Mg Vial IM PRN PRN Hypoglycemia Protocol Glucose 15 gm 11/14/24 16:40 Glucose Oral Gel 15 Gm Of Glucse In 37.5 Gm Tube PO PRN PRN Hypoglycemia Protocol Dextrose 1,000 mls @ 100 mls/hr 11/14/24 16:40 Dextrose 5% 1,000 Ml IVPB PRN PRN Hypoglycemia Protocol Lactated Ringer's 1,000 mls @ 30 mls/hr 11/15/24 10:10 11/15/24 10:55 Lr - Lactated Ringers Iv IV CONT Infused .Q24H ROB Infusion Ibuprofen 800 mg in 200 mls @ 400 mls/hr 11/15/24 11:06 11/16/24 11:06 Caldolor 800 Mg/200 Ml IVPB 400 mls/hr Q6H PRN Administration Breakthrough Pain Rated 1-3 or NPO Insulin Aspart 3 - 6 units 11/14/24 17:00 11/16/24 11:59 Insulin Aspart (*Bkc) 100 Units/Ml SUB-Q 4 units TIDWM [facility] Administration Protocol Insulin Aspart 1 - 3 units 11/14/24 21:00 11/15/24 21:17 Insulin Aspart (*Bkc) 100 Units/Ml SUB-Q 3 units HS ROB Administration Protocol Insulin Glargine 10 units 11/14/24 18:00 11/15/24 17:23 Insulin Glargine (*Bkc) 100 Units/Ml SUB-Q 10 units QPM ROB Administration Lisinopril 30 mg 11/15/24 09:00 11/16/24 08:31 Lisinopril 10 Mg Tablet PO 30 mg DAILY ROB Administration Melatonin 10 mg 11/14/24 21:00 11/15/24 21:11 Melatonin 5 Mg Tablet PO 10 mg HS ROB Administration Methocarbamol 500 mg 11/15/24 10:09 Methocarbamol 500 Mg Tablet PO Q8H PRN muscle spasm Metoprolol Succinate 50 mg 11/15/24 09:00 11/16/24 08:31 Metoprolol Succinate Ext Rel 50 Mg Tabcr PO 50 mg DAILY ROB Administration Morphine Sulfate 2 mg 11/14/24 15:51 11/15/24 05:18 Morphine Sulfate (*Crx) 2 Mg/Ml Inj IV PUSH 2 mg Q4H PRN Administration Pain Rated 7-10 Naloxone HCl 0.1 mg 11/15/24 11:06 Naloxone Hcl 0.4 Mg/Ml Vial IV PUSH Q2M PRN Opiate Reversal Nicotine 1 patch 11/15/24 20:15 11/16/24 09:26 Nicotine (*Pbkc) 14 Mg Patch TRANSDERM 1 patch DAILY ROB Administration Ondansetron HCl 4 mg 11/15/24 11:06 11/15/24 17:21 Ondansetron Inj 4 Mg/2 Ml Vial IV PUSH 4 mg Q4H PRN Administration Nausea And Vomiting Pantoprazole Sodium 40 mg 11/14/24 21:00 11/16/24 08:31 Pantoprazole 40 Mg Tablet PO 40 mg Q12HR ROB Administration Polyethylene Glycol 17 gm 11/16/24 09:00 11/16/24 08:31 Polyethylene Glycol 3350 17 Gm Powd.Pack PO 17 gm QAM ROB Administration Rosuvastatin Calcium 20 mg 11/14/24 21:00 11/15/24 21:11 Rosuvastatin 20 Mg Tablet PO 20 mg HS ROB Administration Radiology Results: ITS Impressions Chest X-Ray 11/15/24 06:36 Impression: Suspected COPD with left basilar atelectasis or scarring. Intraoperative X-Ray 11/15/24 14:13 IMPRESSION: 1. Near-anatomic alignment post open reduction internal fixation of trimalleolar fracture of the right ankle. See procedure note for further detail. Labs Labs: Laboratory Results - last 24 hr 11/15/24 11/15/24 11/15/24 14:04 16:39 20:33 WBC RBC Hgb Hct MCV MCH MCHC RDW Plt Count MPV Immature Gran % (Auto) Neut % (Auto) Lymph % (Auto) [place] % (Auto) Eos % (Auto) Baso % (Auto) Lymph # (Auto) [place] # (Auto) Eos # (Auto) Baso # (Auto) Abs Immat Gran (auto) Absolute Neuts (auto) Absolute Nucleated RBC Nucleated RBC % Sodium Potassium Chloride Carbon Dioxide Anion Gap BUN Creatinine Estim Creat Clear Calc Estimated GFR Glucose POC Capillary Glucose 405 H 395 H 400 H Hemoglobin A1c Calcium 11/15/24 11/16/24 11/16/24 20:34 05:32 05:36 WBC 18.4 H RBC 4.26 Hgb 10.7 L Hct 35.0 L MCV 82.2 MCH 25.1 L MCHC 30.6 L RDW 15.9 H Plt Count 469 H MPV 11.8 H Immature Gran % (Auto) 2.3 H Neut % (Auto) 71.8 Lymph % (Auto) 13.9 L [place] % (Auto) 11.5 H Eos % (Auto) 0.1 Baso % (Auto) 0.4 Lymph # (Auto) 2.56 [place] # (Auto) 2.1 H Eos # (Auto) 0.0 Baso # (Auto) 0.1 Abs Immat Gran (auto) 0.42 H Absolute Neuts (auto) 13.2 H Absolute Nucleated RBC 0.040 H Nucleated RBC % 0.2 Sodium 136 L Potassium 3.5 Chloride 99 Carbon Dioxide 26 Anion Gap 11 BUN 11 Creatinine 0.71 Estim Creat Clear Calc 68 Estimated GFR > 60 Glucose 334 H POC Capillary Glucose 397 H Hemoglobin A1c 9.9 H Calcium 8.7 11/16/24 11/16/24 07:34 11:15 WBC RBC Hgb Hct MCV MCH MCHC RDW Plt Count MPV Immature Gran % (Auto) Neut % (Auto) Lymph % (Auto) [place] % (Auto) Eos % (Auto) Baso % (Auto) Lymph # (Auto) [place] # (Auto) Eos # (Auto) Baso # (Auto) Abs Immat Gran (auto) Absolute Neuts (auto) Absolute Nucleated RBC Nucleated RBC % Sodium Potassium Chloride Carbon Dioxide Anion Gap BUN Creatinine Estim Creat Clear Calc Estimated GFR Glucose POC Capillary Glucose 312 H 293 H Hemoglobin A1c Calcium
--- NOTE | 2024-11-16 14:30 | PC.NURSE ---
1100 Ambar GREENE notified of glucose elevated in 300's.
[2024-11-16 17:00] LABS: Glucose Point of Care 410 mg/dl (65-105)
--- NOTE | 2024-11-16 17:11 | PC.NURSE ---
Ambar Martinez [employer] notified of glucose 410, order to give 6 units novolog total.
[2024-11-16] MEDS: INSULIN GLARGINE (*BKC) 100 UNITS/ML 10 UNITS SUB-Q (17:19)
[2024-11-16] MEDS: MELATONIN 5 MG TABLET 10 MG PO (21:22)
[2024-11-16] MEDS: ROSUVASTATIN 20 MG TABLET PO (21:23)
[2024-11-16 22:06] LABS: Glucose Point of Care 253 mg/dl (65-105)
[2024-11-17] MEDS: clonazePAM (*CRX) 0.5 MG TABLET 1 MG PO (00:30)
[2024-11-17] MEDS: CYCLOBENZAPRINE HCL 10 MG TABLET PO ×2 (00:30→16:57)
[2024-11-17] MEDS: HYDROcodone/acetaminophen (*CRX) 5-325 MG TABLET 1 TAB PO ×3 (02:30→16:59)
[2024-11-17 06:00] VITALS: BP 127/57; PULSE 81; RESP 16; TEMP 36.7; O2SAT 91
[2024-11-17] MEDS: IBUPROFEN IV 800 MG/200 ML 800 MG/200 ML BAG 400 MG IVPB (07:28)
[2024-11-17 08:00] VITALS: O2SAT 93
[2024-11-17 08:04] LABS: Glucose Point of Care 241 mg/dl (65-105)
--- NOTE | 2024-11-17 08:05 | PCPTNOTE ---
Attempted to see patient for PT, however patient was working with OT.
[2024-11-17 08:25] LABS: Hematocrit 34.5 % (37.0-47.0); Hemoglobin 10.5 g/dL (12.0-15.0); Mean Corpuscular HGB Conc 30.4 g/dl (32-36); Mean Corpuscular Hemoglobin 25.2 pg (26-34); Mean Corpuscular Volume 82.9 fl (80-100); Platelet Count Result 445 k/mm3 (150-375); Red Blood Count 4.16 M/mm3 (4.2-5.4); Red Cell Distribution Width 16.6 % (11.5-14.5); White Blood Count 16.1 K/mm3 (4.5-10.0)
[2024-11-17] MEDS: INSULIN ASPART (*BKC) 100 UNITS/ML SUB-Q ×4 (08:40→20:47)
[2024-11-17] MEDS: CALCIUM CARBONATE (TUMS) 500 MG (200 MG ELEMENTAL) PO (08:43)
[2024-11-17] MEDS: FLUoxetine HCL 20 MG CAPSULE 60 MG PO (08:43)
[2024-11-17] MEDS: DOCUSATE SODIUM 100 MG CAPSULE PO ×2 (08:43→16:57)
[2024-11-17] MEDS: ASPIRIN 81 MG CHEWABLE TABLET PO (08:43)
[2024-11-17] MEDS: amLODIPine BESYLATE 10 MG TABLET PO (08:43)
[2024-11-17 08:44] VITALS: PULSE 70
[2024-11-17] MEDS: lisinopriL 10 MG TABLET 30 MG PO (08:44)
[2024-11-17] MEDS: PANTOPRAZOLE 40 MG TABLET PO ×2 (08:44→20:36)
[2024-11-17] MEDS: METOPROLOL SUCCINATE EXT REL 50 MG TABCR PO (08:44)
[2024-11-17] MEDS: FUROSEMIDE 20 MG TABLET PO (08:44)
[2024-11-17] MEDS: polyethylene glycoL 3350 17 GM POWD.PACK PO (08:45)
[2024-11-17 08:48] LABS: Alanine Aminotransferase 16 U/L (6-35); Albumin Level 3.7 g/dL (3.5-5.1); Alkaline Phosphatase 146 U/L (38-126); Anion Gap 10 mmol/L (4-12); Aspartate Amino Transferase 18 U/L (14-36); Bilirubin,Total 0.4 mg/dL (0.2-1.3); Blood Urea Nitrogen 11 mg/dL (7-17); Calcium 8.4 mg/dL (8.4-10.2); Carbon Dioxide 27 mmol/L (22-30); Chloride 101 mmol/L (98-107); Estimated CRCL calculation 65 ml/min; Estimated Glomerular Filt Rate > 60; Glucose 234 mg/dL (65-110); Potassium 3.3 mmol/L (3.4-5.0); Sodium 138 mmol/L (137-145); Total Protein 6.7 g/dL (6.3-8.2)
--- NOTE | 2024-11-17 08:50 | PM.PNORT ---
Progress Note: A&P Assessment and Plan (1) Displaced bimalleolar fracture of right ankle: Qualifiers: Encounter type: initial encounter Fracture type: closed Qualified Code(s): S82.841A - Displaced bimalleolar fracture of right lower leg, initial encounter for closed fracture Code(s): S82.841A - Displaced bimalleolar fracture of right lower leg, initial encounter for closed fracture Status: Acute Assessment and Plan: POD #2: Open reduction internal fixation right ankle bimalleolar fracture with fixation of medial and lateral fractures. Pain control. PT/OT. NWB RLE. High Fall Risk Precautions. Ice. Elevate. Dispo: TERESA given recurrent falls recently. Follow up outpatient. Time Spent With Patient Time: Reviewed history, exam, radiographs and current labs with attending MD and covering surgeon, Dr. Rosales, who agrees with current plan as indicated above. No further recommendations from Dr. Rosales at this time. Subjective Subjective Date/Time Seen: 11/17/24 08:50 Post Op day: 2 Interval history: POD #2: Open reduction internal fixation right ankle bimalleolar fracture with fixation of medial and lateral fractures. Patient denies pain. Improvement in mentation today. No new concerns. Up in chair eating breakfast. Review of Systems Review of Systems: All systems reviewed & are unremarkable except as noted in HPI and below Exam Const: General: comfortable and no acute distress Resp: Effort & Inspection: normal respiratory effort Cardio: Rate: regular rate Rhythm: regular rhythm GI: GI Palp: Yes Soft to palpation Neuro: Sensory Exam: normal sensation Extrem: Right lower extremity: knee Details: normal to inspection; no tenderness and no swelling, lower leg (Cast c/d/i ), ankle (cast c/d/i) and foot (cast c/d/i ) Details: toes with normal ROM Objective Data Vital Signs Vital Signs: Vital Signs - 24 hr 11/16/24 08:51 11/16/24 08:57 11/16/24 12:51 Temperature 36.4 C 36.4 C Pulse Rate 71 87 Respiratory Rate 16 16 Blood Pressure 149/69 H 136/56 L Pulse Oximetry 96 94 Oxygen Delivery Room Air 11/16/24 17:43 11/16/24 22:00 11/17/24 06:00 Temperature 36.8 C 36.7 C Pulse Rate 79 81 Respiratory Rate 16 16 Blood Pressure 127/54 L 122/54 L 127/57 L Pulse Oximetry 94 91 Oxygen Delivery 11/17/24 08:00 11/17/24 08:44 Temperature Pulse Rate 70 Respiratory Rate Blood Pressure Pulse Oximetry 93 Oxygen Delivery Room Air Intake/Output Intake/Output: Intake & Output 11/14/24 11/15/24 11/16/24 11/17/24 23:59 23:59 23:59 23:59 Intake Total 240 2380 680 200 Output Total 0 2400 800 Balance 240 -20 -120 200 Meds/Results Medications: Active Medications Generic Name Dose Route Start Last Admin Trade Name Freq PRN Reason Stop Dose Admin Acetaminophen 650 mg 11/14/24 15:51 11/16/24 05:49 Acetaminophen 325 Mg Tablet PO 650 mg Q4H PRN Administration Mild Pain (1-3) or Fever Hydrocodone Bitart/Acetaminophen 1 tab 11/14/24 15:51 11/17/24 02:30 Hydrocodone/Acetaminophen (*Crx) 5-325 Mg Tablet PO 1 tab Q4H PRN Administration Moderate Pain (4-6) Albuterol 2 puff 11/14/24 15:53 Albuterol Sulfate (*Sp) Aerosol 1 Puff INHALATION Q4H PRN Shortness Of Breath Amlodipine Besylate 10 mg 11/15/24 09:00 11/17/24 08:43 Amlodipine Besylate 10 Mg Tablet PO 10 mg DAILY ROB Administration Aspirin 81 mg 11/15/24 09:00 11/17/24 08:43 Aspirin 81 Mg Chewable Tablet PO 81 mg DAILY ROB Administration Calcium Carbonate 500 mg 11/16/24 09:00 11/17/24 08:43 Calcium Carbonate (Tums) 500 Mg (200 Mg Elemental) PO 500 mg DAILY ROB Administration Clonazepam 1 mg 11/14/24 15:53 11/17/24 00:30 Clonazepam (*Crx) 0.5 Mg Tablet PO 1 mg BID PRN Administration Anxiety Cyclobenzaprine HCl 10 mg 11/14/24 15:53 11/17/24 00:30 Cyclobenzaprine Hcl 10 Mg Tablet PO 10 mg TID PRN Administration Muscle Spasm Dextrose 12.5 gm 11/14/24 16:40 Dextrose 50% 25 Gm/50 Ml Syringe IV PUSH PRN PRN Hypoglycemia Protocol Docusate Sodium 100 mg 11/14/24 17:00 11/17/24 08:43 Docusate Sodium 100 Mg Capsule PO 100 mg BID ROB Administration Fluoxetine HCl 60 mg 11/15/24 09:00 11/17/24 08:43 Fluoxetine Hcl 20 Mg Capsule PO 60 mg DAILY ROB Administration Furosemide 20 mg 11/15/24 09:00 11/17/24 08:44 Furosemide 20 Mg Tablet PO 20 mg DAILY ROB Administration Glucagon 1 mg 11/14/24 16:40 Glucagon For Inj 1 Mg Vial IM PRN PRN Hypoglycemia Protocol Glucose 15 gm 11/14/24 16:40 Glucose Oral Gel 15 Gm Of Glucse In 37.5 Gm Tube PO PRN PRN Hypoglycemia Protocol Dextrose 1,000 mls @ 100 mls/hr 11/14/24 16:40 Dextrose 5% 1,000 Ml IVPB PRN PRN Hypoglycemia Protocol Lactated Ringer's 1,000 mls @ 30 mls/hr 11/15/24 10:10 11/17/24 08:49 Lr - Lactated Ringers Iv IV CONT Not Given .Q24H ROB Ibuprofen 800 mg in 200 mls @ 400 mls/hr 11/15/24 11:06 11/17/24 07:28 Caldolor 800 Mg/200 Ml IVPB 400 mls/hr Q6H PRN Administration Breakthrough Pain Rated 1-3 or NPO Insulin Aspart 3 - 6 units 11/14/24 17:00 11/17/24 08:40 Insulin Aspart (*Bkc) 100 Units/Ml SUB-Q 3 units TIDWM ROB Administration Protocol Insulin Aspart 1 - 3 units 11/14/24 21:00 11/16/24 22:23 Insulin Aspart (*Bkc) 100 Units/Ml SUB-Q 2 units HS ROB Administration Protocol Insulin Glargine 10 units 11/14/24 18:00 11/16/24 17:19 Insulin Glargine (*Bkc) 100 Units/Ml SUB-Q 10 units QPM ROB Administration Lisinopril 30 mg 11/15/24 09:00 11/17/24 08:44 Lisinopril 10 Mg Tablet PO 30 mg DAILY ROB Administration Melatonin 10 mg 11/14/24 21:00 11/16/24 21:22 Melatonin 5 Mg Tablet PO 10 mg HS ROB Administration Methocarbamol 500 mg 11/15/24 10:09 Methocarbamol 500 Mg Tablet PO Q8H PRN muscle spasm Metoprolol Succinate 50 mg 11/15/24 09:00 11/17/24 08:44 Metoprolol Succinate Ext Rel 50 Mg Tabcr PO 50 mg DAILY ROB Administration Morphine Sulfate 2 mg 11/14/24 15:51 11/15/24 05:18 Morphine Sulfate (*Crx) 2 Mg/Ml Inj IV PUSH 2 mg Q4H PRN Administration Pain Rated 7-10 Naloxone HCl 0.1 mg 11/15/24 11:06 Naloxone Hcl 0.4 Mg/Ml Vial IV PUSH Q2M PRN Opiate Reversal Nicotine 1 patch 11/15/24 20:15 11/17/24 08:44 Nicotine (*Pbkc) 14 Mg Patch TRANSDERM Not Given DAILY ROB Ondansetron HCl 4 mg 11/15/24 11:06 11/15/24 17:21 Ondansetron Inj 4 Mg/2 Ml Vial IV PUSH 4 mg Q4H PRN Administration Nausea And Vomiting Pantoprazole Sodium 40 mg 11/14/24 21:00 11/17/24 08:44 Pantoprazole 40 Mg Tablet PO 40 mg Q12HR ROB Administration Polyethylene Glycol 17 gm 11/16/24 09:00 11/17/24 08:45 Polyethylene Glycol 3350 17 Gm Powd.Pack PO 17 gm QAM ROB Administration Rosuvastatin Calcium 20 mg 11/14/24 21:00 11/16/24 21:23 Rosuvastatin 20 Mg Tablet PO 20 mg HS ROB Administration Radiology Results: ITS Impressions Chest X-Ray 11/15/24 06:36 Impression: Suspected COPD with left basilar atelectasis or scarring. Intraoperative X-Ray 11/15/24 14:13 IMPRESSION: 1. Near-anatomic alignment post open reduction internal fixation of trimalleolar fracture of the right ankle. See procedure note for further detail. Labs Labs: Laboratory Results - last 24 hr 11/16/24 11/16/24 11/16/24 05:32 11:15 16:56 WBC RBC Hgb Hct MCV MCH MCHC RDW Plt Count MPV Sodium Potassium Chloride Carbon Dioxide Anion Gap BUN Creatinine Estim Creat Clear Calc Estimated GFR Glucose POC Capillary Glucose 293 H 410 H Hemoglobin A1c 9.9 H Calcium Total Bilirubin AST ALT Alkaline Phosphatase Total Protein Albumin 11/16/24 11/17/24 11/17/24 21:59 07:58 08:18 WBC 16.1 H RBC 4.16 L Hgb 10.5 L Hct 34.5 L MCV 82.9 MCH 25.2 L MCHC 30.4 L RDW 16.6 H Plt Count 445 H MPV 11.0 H Sodium 138 Potassium 3.3 L Chloride 101 Carbon Dioxide 27 Anion Gap 10 BUN 11 Creatinine 0.74 Estim Creat Clear Calc 65 Estimated GFR > 60 Glucose 234 H POC Capillary Glucose 253 H 241 H Hemoglobin A1c Calcium 8.4 Total Bilirubin 0.4 AST 18 ALT 16 Alkaline Phosphatase 146 H Total Protein 6.7 Albumin 3.7
[2024-11-17 11:22] LABS: Glucose Point of Care 341 mg/dl (65-105)
[2024-11-17 13:52] VITALS: BP 111/63; PULSE 77; RESP 14; TEMP 36.1; O2SAT 95
--- NOTE | 2024-11-17 15:13 | PM.IMPN ---
Progress Note: A&P Assessment and Plan (1) Displaced bimalleolar fracture of right ankle: Qualifiers: Encounter type: initial encounter Fracture type: closed Qualified Code(s): S82.841A - Displaced bimalleolar fracture of right lower leg, initial encounter for closed fracture Code(s): S82.841A - Displaced bimalleolar fracture of right lower leg, initial encounter for closed fracture Status: Acute Assessment and Plan: Mechanical ground level fall. Denies head strike and LOC. Per patient has been having difficulties with ambulation for several months. Only able to walk short distances using walker. reports at least 10 falls this month. Ankle xr showed right displaced bimalleolar fracture Ankle xr following reduction showed partial reduction of displaced bimalleolar fracture Analgesics PT/OT, weight bearing per ortho is non weight bearing Plan for patient to go to SNF. Care coordination following. Per patient has fallen at least 10 times this month. Ortho consulted s/p open reduction internal fixation right ankle bimalleolar fracture with fixation of medial and lateral fractures on 11/[address] Rosales outpatient follow up in 1-2 weeks (2) Hypertension: Code(s): I10 - Essential (primary) hypertension Status: Acute Assessment and Plan: Chronic, continue home medications - amlodipine 10 mg daily - lasix 20 mg daily - lisinopril 30 mg daily - metoprolol 50 mg daily - blood pressures remain stable, continue to monitor (3) Diabetes: Code(s): E11.9 - Type 2 diabetes mellitus without complications Status: Acute Assessment and Plan: - hypoglycemia protocol - POC blood glucose ACHS - home medication - lantus 10 units and SSI aspart - correct regimen ordered - lantus 10 units and mod SSI - A1C 9.9 on 11/16 Glucose 405 following surgery. Given 6 units novolog x1. Continue to monitor glucose. (4) Depression: Code(s): F32.A - Depression, unspecified Status: Acute Assessment and Plan: Continue home medications Patient follows [facility] No mental health concerns at this time Time Spent With Patient Time with patient: 25 - 35 minutes Subjective Date/time seen: 11/17/24 15:13 Interval history: 59 year old female with past medical history of HTN, HLD, GERD, CVA, insulin dependent diabetes, and memory loss presents to the hospital for right ankle pain following a mechanical ground level fall. Patient is pleasant lying comfortably in bed. She has no complaints at this time stating that her pain is well controlled on the current regimen. She has no other complaints denying chest pain, palpitations, shortness of breath nausea/vomiting, and abdominal pain. She continues to work with physical therapy. Care coordination following for placement. Review of Systems Review of Systems: All systems reviewed & are unremarkable except as noted in HPI and below Exam Narrative: AF HR 77 RR 14 SpO2 95 BP 111/63 General: female in no acute respiratory distress who is nontoxic appearing, sitting up in bed HEENT: Normocephalic. Atraumatic. Extraocular movement intact. Sclera clear and anicteric. No facial asymmetry. Chest: Lungs are clear to auscultation bilaterally. No wheezes or crackles. CV: Heart was regular rate and rhythm. S1-S2. No murmurs, gallops, or rubs. Abd: Abdomen was soft. Nontender. Nondistended. Positive bowel sounds. Ext: No clubbing, cyanosis, or edema. DP pulses bilaterally. Hard cast to the right leg. Sensation intact. Wiggling toes. Neuro: Patient is alert and oriented x3. Speech is clear. Objective Data Vital Signs Vital Signs: Vital Signs - 24 hr 11/16/24 17:43 11/16/24 22:00 11/17/24 06:00 Temperature 98.3 F 98.0 F Pulse Rate 79 81 Respiratory Rate 16 16 Blood Pressure 127/54 L 122/54 L 127/57 L Pulse Oximetry 94 91 Oxygen Delivery 11/17/24 08:00 11/17/24 08:44 11/17/24 13:52 Temperature 97.0 F L Pulse Rate 70 77 Respiratory Rate 14 Blood Pressure 111/63 Pulse Oximetry 93 95 Oxygen Delivery Room Air Intake/Output Intake/Output: Intake & Output 11/14/24 11/15/24 11/16/24 11/17/24 23:59 23:59 23:59 23:59 Intake Total 240 2380 680 680 Output Total 0 2400 800 400 Balance 240 -20 -120 280 Meds/Results Medications: Active Medications Generic Name Dose Route Start Last Admin Trade Name Freq PRN Reason Stop Dose Admin Acetaminophen 650 mg 11/14/24 15:51 11/16/24 05:49 Acetaminophen 325 Mg Tablet PO 650 mg Q4H PRN Administration Mild Pain (1-3) or Fever Hydrocodone Bitart/Acetaminophen 1 tab 11/14/24 15:51 11/17/24 13:27 Hydrocodone/Acetaminophen (*Crx) 5-325 Mg Tablet PO 1 tab Q4H PRN Administration Moderate Pain (4-6) Albuterol 2 puff 11/14/24 15:53 Albuterol Sulfate (*Sp) Aerosol 1 Puff INHALATION Q4H PRN Shortness Of Breath Amlodipine Besylate 10 mg 11/15/24 09:00 11/17/24 08:43 Amlodipine Besylate 10 Mg Tablet PO 10 mg DAILY ROB Administration Aspirin 81 mg 11/15/24 09:00 11/17/24 08:43 Aspirin 81 Mg Chewable Tablet PO 81 mg DAILY ROB Administration Calcium Carbonate 500 mg 11/16/24 09:00 11/17/24 08:43 Calcium Carbonate (Tums) 500 Mg (200 Mg Elemental) PO 500 mg DAILY ROB Administration Clonazepam 1 mg 11/14/24 15:53 11/17/24 00:30 Clonazepam (*Crx) 0.5 Mg Tablet PO 1 mg BID PRN Administration Anxiety Cyclobenzaprine HCl 10 mg 11/14/24 15:53 11/17/24 00:30 Cyclobenzaprine Hcl 10 Mg Tablet PO 10 mg TID PRN Administration Muscle Spasm Dextrose 12.5 gm 11/14/24 16:40 Dextrose 50% 25 Gm/50 Ml Syringe IV PUSH PRN PRN Hypoglycemia Protocol Docusate Sodium 100 mg 11/14/24 17:00 11/17/24 08:43 Docusate Sodium 100 Mg Capsule PO 100 mg BID ROB Administration Fluoxetine HCl 60 mg 11/15/24 09:00 11/17/24 08:43 Fluoxetine Hcl 20 Mg Capsule PO 60 mg DAILY ROB Administration Furosemide 20 mg 11/15/24 09:00 11/17/24 08:44 Furosemide 20 Mg Tablet PO 20 mg DAILY ROB Administration Glucagon 1 mg 11/14/24 16:40 Glucagon For Inj 1 Mg Vial IM PRN PRN Hypoglycemia Protocol Glucose 15 gm 11/14/24 16:40 Glucose Oral Gel 15 Gm Of Glucse In 37.5 Gm Tube PO PRN PRN Hypoglycemia Protocol Dextrose 1,000 mls @ 100 mls/hr 11/14/24 16:40 Dextrose 5% 1,000 Ml IVPB PRN PRN Hypoglycemia Protocol Lactated Ringer's 1,000 mls @ 30 mls/hr 11/15/24 10:10 11/17/24 08:49 Lr - Lactated Ringers Iv IV CONT Not Given .Q24H ROB Ibuprofen 800 mg in 200 mls @ 400 mls/hr 11/15/24 11:06 11/17/24 07:28 Caldolor 800 Mg/200 Ml IVPB 400 mls/hr Q6H PRN Administration Breakthrough Pain Rated 1-3 or NPO Insulin Aspart 3 - 6 units 11/14/24 17:00 11/17/24 11:29 Insulin Aspart (*Bkc) 100 Units/Ml SUB-Q 5 units TIDWM ROB Administration Protocol Insulin Aspart 1 - 3 units 11/14/24 21:00 11/16/24 22:23 Insulin Aspart (*Bkc) 100 Units/Ml SUB-Q 2 units HS ROB Administration Protocol Insulin Glargine 10 units 11/14/24 18:00 11/16/24 17:19 Insulin Glargine (*Bkc) 100 Units/Ml SUB-Q 10 units QPM ROB Administration Lisinopril 30 mg 11/15/24 09:00 11/17/24 08:44 Lisinopril 10 Mg Tablet PO 30 mg DAILY ROB Administration Melatonin 10 mg 11/14/24 21:00 11/16/24 21:22 Melatonin 5 Mg Tablet PO 10 mg HS ROB Administration Methocarbamol 500 mg 11/15/24 10:09 Methocarbamol 500 Mg Tablet PO Q8H PRN muscle spasm Metoprolol Succinate 50 mg 11/15/24 09:00 11/17/24 08:44 Metoprolol Succinate Ext Rel 50 Mg Tabcr PO 50 mg DAILY ROB Administration Morphine Sulfate 2 mg 11/14/24 15:51 11/15/24 05:18 Morphine Sulfate (*Crx) 2 Mg/Ml Inj IV PUSH 2 mg Q4H PRN Administration Pain Rated 7-10 Naloxone HCl 0.1 mg 11/15/24 11:06 Naloxone Hcl 0.4 Mg/Ml Vial IV PUSH Q2M PRN Opiate Reversal Nicotine 1 patch 11/15/24 20:15 11/17/24 08:44 Nicotine (*Pbkc) 14 Mg Patch TRANSDERM Not Given DAILY [facility] Ondansetron HCl 4 mg 11/15/24 11:06 11/15/24 17:21 Ondansetron Inj 4 Mg/2 Ml Vial IV PUSH 4 mg Q4H PRN Administration Nausea And Vomiting Pantoprazole Sodium 40 mg 11/14/24 21:00 11/17/24 08:44 Pantoprazole 40 Mg Tablet PO 40 mg Q12HR ROB Administration Polyethylene Glycol 17 gm 11/16/24 09:00 11/17/24 08:45 Polyethylene Glycol 3350 17 Gm Powd.Pack PO 17 gm QAM ROB Administration Rosuvastatin Calcium 20 mg 11/14/24 21:00 11/16/24 21:23 Rosuvastatin 20 Mg Tablet PO 20 mg HS ROB Administration Radiology Results: ITS Impressions Chest X-Ray 11/15/24 06:36 Impression: Suspected COPD with left basilar atelectasis or scarring. Intraoperative X-Ray 11/15/24 14:13 IMPRESSION: 1. Near-anatomic alignment post open reduction internal fixation of trimalleolar fracture of the right ankle. See procedure note for further detail. Labs Labs: Laboratory Results - last 24 hr 11/16/24 11/16/24 11/17/24 16:56 21:59 07:58 WBC RBC Hgb Hct MCV MCH MCHC RDW Plt Count MPV Sodium Potassium Chloride Carbon Dioxide Anion Gap BUN Creatinine Estim Creat Clear Calc Estimated GFR Glucose POC Capillary Glucose 410 H 253 H 241 H Calcium Total Bilirubin AST ALT Alkaline Phosphatase Total Protein Albumin 11/17/24 11/17/24 08:18 11:19 WBC 16.1 H RBC 4.16 L Hgb 10.5 L Hct 34.5 L MCV 82.9 MCH 25.2 L MCHC 30.4 L RDW 16.6 H Plt Count 445 H MPV 11.0 H Sodium 138 Potassium 3.3 L Chloride 101 Carbon Dioxide 27 Anion Gap 10 BUN 11 Creatinine 0.74 Estim Creat Clear Calc 65 Estimated GFR > 60 Glucose 234 H POC Capillary Glucose 341 H Calcium 8.4 Total Bilirubin 0.4 AST 18 ALT 16 Alkaline Phosphatase 146 H Total Protein 6.7 Albumin 3.7 Quality VTE Prophylaxis VTE prophylaxis: mechanical ordered
[2024-11-17 16:23] LABS: Glucose Point of Care 314 mg/dl (65-105)
[2024-11-17] MEDS: GABAPENTIN 100 MG CAPSULE PO (16:57)
[2024-11-17] MEDS: busPIRone HCL 5 MG TABLET 15 MG PO (16:57)
[2024-11-17] MEDS: INSULIN GLARGINE (*BKC) 100 UNITS/ML 10 UNITS SUB-Q (17:00)
[2024-11-17 20:00] VITALS: PULSE 80; RESP 17; O2SAT 91
[2024-11-17] MEDS: ROSUVASTATIN 20 MG TABLET PO (20:34)
[2024-11-17] MEDS: OLANZapine 5 MG TABLET PO (20:35)
[2024-11-17] MEDS: FLUoxetine HCL 20 MG CAPSULE 40 MG PO (20:35)
[2024-11-17] MEDS: MELATONIN 5 MG TABLET 10 MG PO (20:35)
[2024-11-17 20:57] LABS: Glucose Point of Care 360 mg/dl (65-105)
[2024-11-17 21:40] VITALS: BP 111/56; PULSE 80; RESP 17; TEMP 36.8; O2SAT 91
[2024-11-18] VITALS (7 sets, daily range): BP systolic 110–130; BP diastolic 59–70; PULSE 78–80; RESP 1–18; TEMP 36.3–36.8; O2SAT 90–93; BMI 32.4
[2024-11-18] MEDS: HYDROcodone/acetaminophen (*CRX) 5-325 MG TABLET 1 TAB PO ×5 (01:55→22:03)
[2024-11-18] MEDS: methocarbamoL 500 MG TABLET PO (01:56)
[2024-11-18] MEDS: MORPHINE SULFATE (*CRX) 2 MG/ML INJ IV PUSH (05:08)
[2024-11-18 07:34] LABS: Glucose Point of Care 269 mg/dl (65-105)
[2024-11-18] MEDS: INSULIN ASPART (*BKC) 100 UNITS/ML SUB-Q ×5 (08:56→21:33)
[2024-11-18] MEDS: polyethylene glycoL 3350 17 GM POWD.PACK PO (08:57)
[2024-11-18] MEDS: CALCIUM CARBONATE (TUMS) 500 MG (200 MG ELEMENTAL) PO (08:58)
[2024-11-18] MEDS: DOCUSATE SODIUM 100 MG CAPSULE PO (08:58)
[2024-11-18] MEDS: FLUoxetine HCL 20 MG CAPSULE PO (08:58)
[2024-11-18] MEDS: ASPIRIN 81 MG CHEWABLE TABLET PO (08:59)
[2024-11-18] MEDS: PANTOPRAZOLE 40 MG TABLET PO ×2 (08:59→21:17)
[2024-11-18] MEDS: METOPROLOL SUCCINATE EXT REL 50 MG TABCR PO (08:59)
[2024-11-18] MEDS: GABAPENTIN 100 MG CAPSULE PO ×3 (08:59→16:40)
[2024-11-18] MEDS: busPIRone HCL 5 MG TABLET 15 MG PO ×2 (08:59→16:40)
[2024-11-18] MEDS: amLODIPine BESYLATE 10 MG TABLET PO (08:59)
[2024-11-18] MEDS: FUROSEMIDE 20 MG TABLET PO (09:00)
[2024-11-18] MEDS: CYCLOBENZAPRINE HCL 10 MG TABLET PO (09:02)
[2024-11-18] MEDS: lisinopriL 10 MG TABLET 30 MG PO (09:03)
--- NOTE | 2024-11-18 09:55 | P.PNIM_ITS ---
Progress Note: A&P Assessment and Plan (1) Displaced bimalleolar fracture of right ankle: Qualifiers: Encounter type: initial encounter Fracture type: closed Qualified Code(s): S82.841A - Displaced bimalleolar fracture of right lower leg, initial encounter for closed fracture Code(s): S82.841A - Displaced bimalleolar fracture of right lower leg, initial encounter for closed fracture Status: Acute Assessment and Plan: Mechanical ground level fall. Denies head strike and LOC. Per patient has been having difficulties with ambulation for several months. Only able to walk short distances using walker. reports at least 10 falls this month. Ankle xr showed right displaced bimalleolar fracture Ankle xr following reduction showed partial reduction of displaced bimalleolar fracture Analgesics PT/OT, weight bearing per ortho is non weight bearing Plan for patient to go to SNF. Care coordination following. Per patient has fallen at least 10 times this month. Ortho consulted s/p open reduction internal fixation right ankle bimalleolar fracture with fixation of medial and lateral fractures on 11/[address] Rosales outpatient follow up in 1-2 weeks POD #3: Open reduction internal fixation right ankle bimalleolar fracture with fixation of medial and lateral fractures (2) Hypertension: Code(s): I10 - Essential (primary) hypertension Status: Acute Assessment and Plan: Chronic, continue home medications - amlodipine 10 mg daily - lasix 20 mg daily - lisinopril 30 mg daily - metoprolol 50 mg daily - blood pressures remain stable, continue to monitor (3) Diabetes: Code(s): E11.9 - Type 2 diabetes mellitus without complications Status: Acute Assessment and Plan: - hypoglycemia protocol - POC blood glucose ACHS - home medication - lantus 10 units and SSI aspart - correct regimen ordered - lantus 10 units and mod SSI - A1C 9.9 on 11/16 Glucose 405 following surgery. Given 6 units novolog x1. Continue to monitor glucose. noted that BS is consistently above 200 and even higher (284, 334, 234) will increase lantus to 20 units and monitor close adjust based on fasting BS (4) Depression: Code(s): F32.A - Depression, unspecified Status: Acute Assessment and Plan: Continue home medications Patient follows [facility] No mental health concerns at this time Time Spent With Patient Time with patient: 25 - 35 minutes Subjective Date/time seen: 11/18/24 09:55 Interval history: 59 year old female with past medical history of HTN, HLD, GERD, CVA, insulin dependent diabetes, and memory loss presents to the hospital for right ankle pain following a mechanical ground level fall. Patient is seen and examined. Her pain is well controlled on the current regimen. She is denying chest pain, palpitations, shortness of breath nausea/vomiting, and abdominal pain. She is c/o lt hip pain. She is working with PT/OT. Care coordination following for placement. Review of Systems Review of Systems: 12 systems were reviewed and are negativ e except for as per HPI. All systems reviewed & are unremarkable except as noted in HPI and below Exam Narrative: AF HR 77 RR 14 SpO2 95 BP 111/63 General: female in no acute respiratory distress who is nontoxic appearing, sitting up in bed HEENT: Normocephalic. Atraumatic. Extraocular movement intact. Sclera clear and anicteric. No facial asymmetry. Chest: Lungs are clear to auscultation bilaterally. No wheezes or crackles. CV: Heart was regular rate and rhythm. S1-S2. No murmurs, gallops, or rubs. Abd: Abdomen was soft. Nontender. Nondistended. Positive bowel sounds. Ext: No clubbing, cyanosis, or edema. DP pulses bilaterally. Hard cast to the right leg. Sensation intact. Wiggling toes. Neuro: Patient is alert and oriented x3. Speech is clear. Objective Data Vital Signs Vital Signs: Vital Signs - 24 hr 11/17/24 13:52 11/17/24 20:00 11/17/24 20:00 Temperature 97.0 F L Pulse Rate 77 80 Respiratory Rate 14 17 Blood Pressure 111/63 Pulse Oximetry 95 91 91 Oxygen Delivery Room Air Room Air Fraction of Inspired Oxygen 21 21 11/17/24 21:40 11/18/24 06:00 11/18/24 08:55 Temperature 98.2 F 97.9 F Pulse Rate 80 80 Respiratory Rate 17 17 Blood Pressure 111/56 L 116/59 L 130/70 Pulse Oximetry 91 90 Oxygen Delivery Fraction of Inspired Oxygen 11/18/24 08:59 Temperature Pulse Rate 78 Respiratory Rate Blood Pressure Pulse Oximetry Oxygen Delivery Fraction of Inspired Oxygen Intake/Output Intake/Output: Intake & Output 11/15/24 11/16/24 11/17/24 11/18/24 23:59 23:59 23:59 23:59 Intake Total 2380 680 1380 240 Output Total 2400 800 400 200 Balance -20 -120 980 40 Meds/Results Medications: Active Medications Generic Name Dose Route Start Last Admin Trade Name Freq PRN Reason Stop Dose Admin Acetaminophen 650 mg 11/14/24 15:51 11/16/24 05:49 Acetaminophen 325 Mg Tablet PO 650 mg Q4H PRN Administration Mild Pain (1-3) or Fever Hydrocodone Bitart/Acetaminophen 1 tab 11/14/24 15:51 11/18/24 09:02 Hydrocodone/Acetaminophen (*Crx) 5-325 Mg Tablet PO 1 tab Q4H PRN Administration Moderate Pain (4-6) Albuterol 2 puff 11/14/24 15:53 Albuterol Sulfate (*Sp) Aerosol 1 Puff INHALATION Q4H PRN Shortness Of Breath Amlodipine Besylate 10 mg 11/15/24 09:00 11/18/24 08:59 Amlodipine Besylate 10 Mg Tablet PO 10 mg DAILY ROB Administration Aspirin 81 mg 11/15/24 09:00 11/18/24 08:59 Aspirin 81 Mg Chewable Tablet PO 81 mg DAILY ROB Administration Buspirone HCl 15 mg 11/17/24 17:00 11/18/24 08:59 Buspirone Hcl 5 Mg Tablet PO 15 mg BID ROB Administration Calcium Carbonate 500 mg 11/16/24 09:00 11/18/24 08:58 Calcium Carbonate (Tums) 500 Mg (200 Mg Elemental) PO 500 mg DAILY ROB Administration Cyclobenzaprine HCl 10 mg 11/14/24 15:53 11/18/24 09:02 Cyclobenzaprine Hcl 10 Mg Tablet PO 10 mg TID PRN Administration Muscle Spasm Dextrose 12.5 gm 11/14/24 16:40 Dextrose 50% 25 Gm/50 Ml Syringe IV PUSH PRN PRN Hypoglycemia Protocol Docusate Sodium 100 mg 11/14/24 17:00 11/18/24 08:58 Docusate Sodium 100 Mg Capsule PO 100 mg BID ROB Administration Fluoxetine HCl 40 mg 11/17/24 21:00 11/17/24 20:35 Fluoxetine Hcl 20 Mg Capsule PO 40 mg HS ROB Administration Fluoxetine HCl 20 mg 11/18/24 09:00 11/18/24 08:58 Fluoxetine Hcl 20 Mg Capsule PO 20 mg DAILY ROB Administration Furosemide 20 mg 11/15/24 09:00 11/18/24 09:00 Furosemide 20 Mg Tablet PO 20 mg DAILY ROB Administration Gabapentin 100 mg 11/17/24 17:00 11/18/24 08:59 Gabapentin 100 Mg Capsule PO 100 mg TID ROB Administration Glucagon 1 mg 11/14/24 16:40 Glucagon For Inj 1 Mg Vial IM PRN PRN Hypoglycemia Protocol Glucose 15 gm 11/14/24 16:40 Glucose Oral Gel 15 Gm Of Glucse In 37.5 Gm Tube PO PRN PRN Hypoglycemia Protocol Dextrose 1,000 mls @ 100 mls/hr 11/14/24 16:40 Dextrose 5% 1,000 Ml IVPB PRN PRN Hypoglycemia Protocol Lactated Ringer's 1,000 mls @ 30 mls/hr 11/15/24 10:10 11/18/24 09:01 Lr - Lactated Ringers Iv IV CONT Not Given .Q24H ROB Ibuprofen 800 mg in 200 mls @ 400 mls/hr 11/15/24 11:06 11/17/24 08:00 Caldolor 800 Mg/200 Ml IVPB Infused Q6H PRN Infusion Breakthrough Pain Rated 1-3 or NPO Insulin Aspart 3 - 6 units 11/14/24 17:00 11/18/24 08:56 Insulin Aspart (*Bkc) 100 Units/Ml SUB-Q 4 units TIDWM ROB Administration Protocol Insulin Aspart 1 - 3 units 11/14/24 21:00 11/17/24 20:47 Insulin Aspart (*Bkc) 100 Units/Ml SUB-Q 3 units HS ROB Administration Protocol Insulin Glargine 10 units 11/14/24 18:00 11/17/24 17:00 Insulin Glargine (*Bkc) 100 Units/Ml SUB-Q 10 units QPM ROB Administration Lisinopril 30 mg 11/15/24 09:00 11/18/24 09:03 Lisinopril 10 Mg Tablet PO 30 mg DAILY ROB Administration Melatonin 10 mg 11/14/24 21:00 11/17/24 20:35 Melatonin 5 Mg Tablet PO 10 mg HS ROB Administration Methocarbamol 500 mg 11/15/24 10:09 11/18/24 01:56 Methocarbamol 500 Mg Tablet PO 500 mg Q8H PRN Administration muscle spasm Metoprolol Succinate 50 mg 11/15/24 09:00 11/18/24 08:59 Metoprolol Succinate Ext Rel 50 Mg Tabcr PO 50 mg DAILY ROB Administration Morphine Sulfate 2 mg 11/14/24 15:51 11/18/24 05:08 Morphine Sulfate (*Crx) 2 Mg/Ml Inj IV PUSH 2 mg Q4H PRN Administration Pain Rated 7-10 Naloxone HCl 0.1 mg 11/15/24 11:06 Naloxone Hcl 0.4 Mg/Ml Vial IV PUSH Q2M PRN Opiate Reversal Nicotine 1 patch 11/15/24 20:15 11/18/24 08:57 Nicotine (*Pbkc) 14 Mg Patch TRANSDERM Not Given DAILY ROB Olanzapine 5 mg 11/17/24 21:00 11/17/24 20:35 Olanzapine 5 Mg Tablet PO 5 mg HS ROB Administration Ondansetron HCl 4 mg 11/15/24 11:06 11/15/24 17:21 Ondansetron Inj 4 Mg/2 Ml Vial IV PUSH 4 mg Q4H PRN Administration Nausea And Vomiting Pantoprazole Sodium 40 mg 11/17/24 21:00 11/18/24 08:59 Pantoprazole 40 Mg Tablet PO 40 mg Q12HR ROB Administration Polyethylene Glycol 17 gm 11/16/24 09:00 11/18/24 08:57 Polyethylene Glycol 3350 17 Gm Powd.Pack PO 17 gm QAM ROB Administration Rosuvastatin Calcium 20 mg 11/14/24 21:00 11/17/24 20:34 Rosuvastatin 20 Mg Tablet PO 20 mg HS ROB Administration Radiology Results: ITS Impressions Chest X-Ray 11/15/24 06:36 Impression: Suspected COPD with left basilar atelectasis or scarring. Intraoperative X-Ray 11/15/24 14:13 IMPRESSION: 1. Near-anatomic alignment post open reduction internal fixation of trimalleolar fracture of the right ankle. See procedure note for further detail. Labs Labs: Laboratory Results - last 24 hr 11/17/24 11/17/24 11/17/24 11:19 16:03 20:46 POC Capillary Glucose 341 H 314 H 360 H 11/18/24 07:25 POC Capillary Glucose 269 H Quality VTE Prophylaxis VTE prophylaxis: mechanical ordered
[2024-11-18 11:15] LABS: Glucose Point of Care 308 mg/dl (65-105)
[2024-11-18 16:31] LABS: Glucose Point of Care 374 mg/dl (65-105)
[2024-11-18] MEDS: INSULIN GLARGINE (*BKC) 100 UNITS/ML 20 UNITS SUB-Q (16:44)
[2024-11-18] MEDS: ROSUVASTATIN 20 MG TABLET PO (21:17)
[2024-11-18] MEDS: OLANZapine 5 MG TABLET PO (21:17)
[2024-11-18] MEDS: FLUoxetine HCL 20 MG CAPSULE 40 MG PO (21:17)
[2024-11-18] MEDS: MELATONIN 5 MG TABLET 10 MG PO (21:18)
[2024-11-18 21:20] LABS: Glucose Point of Care 353 mg/dl (65-105)
[2024-11-19] MEDS: ACETAMINOPHEN 325 MG TABLET 650 MG PO (05:17)
[2024-11-19] MEDS: HYDROcodone/acetaminophen (*CRX) 5-325 MG TABLET 1 TAB PO ×4 (05:18→22:22)
[2024-11-19 05:35] VITALS: BP 105/50; PULSE 78; RESP 16; TEMP 36.8; O2SAT 92
[2024-11-19 07:27] LABS: Glucose Point of Care 274 mg/dl (65-105)
--- NOTE | 2024-11-19 09:25 | PM.PNORT ---
Progress Note: A&P Assessment and Plan (1) Displaced bimalleolar fracture of right ankle: Qualifiers: Encounter type: initial encounter Fracture type: closed Qualified Code(s): S82.841A - Displaced bimalleolar fracture of right lower leg, initial encounter for closed fracture Code(s): S82.841A - Displaced bimalleolar fracture of right lower leg, initial encounter for closed fracture Status: Acute Assessment and Plan: POD #4: Open reduction internal fixation right ankle bimalleolar fracture with fixation of medial and lateral fractures. Pain control. PT/OT. NWB RLE. High Fall Risk Precautions. Aspirin 81mg PO daily. Ice. Elevate. Dispo: TERESA given recurrent falls recently. Follow up outpatient. Time Spent With Patient Time: Reviewed history, exam, radiographs and current labs with attending MD and covering surgeon, Dr. Rosales, who agrees with current plan as indicated above. No further recommendations from Dr. Rosales at this time. Subjective Subjective Date/Time Seen: 11/19/24 09:25 Post Op day: 4 Interval history: POD #4: Open reduction internal fixation right ankle bimalleolar fracture with fixation of medial and lateral fractures. Patient denies pain. No new concerns. Up in chair eating breakfast. Review of Systems Review of Systems: All systems reviewed & are unremarkable except as noted in HPI and below Exam Const: General: comfortable and no acute distress Resp: Effort & Inspection: normal respiratory effort Cardio: Rate: regular rate Rhythm: regular rhythm GI: GI Palp: Yes Soft to palpation Neuro: Sensory Exam: normal sensation Extrem: Right lower extremity: knee Details: normal to inspection; no tenderness and no swelling, lower leg (Cast c/d/i ), ankle (cast c/d/i) and foot (cast c/d/i ) Details: toes with normal ROM Objective Data Vital Signs Vital Signs: Vital Signs - 24 hr 11/18/24 14:00 11/18/24 20:00 11/18/24 21:12 Temperature 36.3 C L Pulse Rate 80 Respiratory Rate 18 Blood Pressure 110/61 Pulse Oximetry 92 92 Oxygen Delivery Room Air Room Air 11/18/24 21:44 11/19/24 05:35 Temperature 36.8 C 36.8 C Pulse Rate 79 78 Respiratory Rate 16 16 Blood Pressure 128/69 105/50 L Pulse Oximetry 91 92 Oxygen Delivery Intake/Output Intake/Output: Intake & Output 11/16/24 11/17/24 11/18/24 11/19/24 23:59 23:59 23:59 23:59 Intake Total 680 1380 720 Output Total 800 400 200 500 Balance -120 980 520 -500 Meds/Results Medications: Active Medications Generic Name Dose Route Start Last Admin Trade Name Freq PRN Reason Stop Dose Admin Acetaminophen 650 mg 11/14/24 15:51 11/19/24 05:17 Acetaminophen 325 Mg Tablet PO 650 mg Q4H PRN Administration Mild Pain (1-3) or Fever Hydrocodone Bitart/Acetaminophen 1 tab 11/14/24 15:51 11/19/24 05:18 Hydrocodone/Acetaminophen (*Crx) 5-325 Mg Tablet PO 1 tab Q4H PRN Administration Moderate Pain (4-6) Albuterol 2 puff 11/14/24 15:53 Albuterol Sulfate (*Sp) Aerosol 1 Puff INHALATION Q4H PRN Shortness Of Breath Amlodipine Besylate 10 mg 11/15/24 09:00 11/18/24 08:59 Amlodipine Besylate 10 Mg Tablet PO 10 mg DAILY ROB Administration Aspirin 81 mg 11/15/24 09:00 11/18/24 08:59 Aspirin 81 Mg Chewable Tablet PO 81 mg DAILY ROB Administration Buspirone HCl 15 mg 11/17/24 17:00 11/18/24 16:40 Buspirone Hcl 5 Mg Tablet PO 15 mg BID ROB Administration Calcium Carbonate 500 mg 11/16/24 09:00 11/18/24 08:58 Calcium Carbonate (Tums) 500 Mg (200 Mg Elemental) PO 500 mg DAILY ROB Administration Cyclobenzaprine HCl 10 mg 11/14/24 15:53 11/18/24 09:02 Cyclobenzaprine Hcl 10 Mg Tablet PO 10 mg TID PRN Administration Muscle Spasm Dextrose 12.5 gm 11/14/24 16:40 Dextrose 50% 25 Gm/50 Ml Syringe IV PUSH PRN PRN Hypoglycemia Protocol Docusate Sodium 100 mg 11/14/24 17:00 11/18/24 15:45 Docusate Sodium 100 Mg Capsule PO Not Given BID ROB Fluoxetine HCl 40 mg 11/17/24 21:00 11/18/24 21:17 Fluoxetine Hcl 20 Mg Capsule PO 40 mg HS ROB Administration Fluoxetine HCl 20 mg 11/18/24 09:00 11/18/24 08:58 Fluoxetine Hcl 20 Mg Capsule PO 20 mg DAILY ROB Administration Furosemide 20 mg 11/15/24 09:00 11/18/24 09:00 Furosemide 20 Mg Tablet PO 20 mg DAILY ROB Administration Gabapentin 100 mg 11/17/24 17:00 11/18/24 16:40 Gabapentin 100 Mg Capsule PO 100 mg TID ROB Administration Glucagon 1 mg 11/14/24 16:40 Glucagon For Inj 1 Mg Vial IM PRN PRN Hypoglycemia Protocol Glucose 15 gm 11/14/24 16:40 Glucose Oral Gel 15 Gm Of Glucse In 37.5 Gm Tube PO PRN PRN Hypoglycemia Protocol Dextrose 1,000 mls @ 100 mls/hr 11/14/24 16:40 Dextrose 5% 1,000 Ml IVPB PRN PRN Hypoglycemia Protocol Lactated Ringer's 1,000 mls @ 30 mls/hr 11/15/24 10:10 11/18/24 09:01 Lr - Lactated Ringers Iv IV CONT Not Given .Q24H ROB Ibuprofen 800 mg in 200 mls @ 400 mls/hr 11/15/24 11:06 11/17/24 08:00 Caldolor 800 Mg/200 Ml IVPB Infused Q6H PRN Infusion Breakthrough Pain Rated 1-3 or NPO Insulin Aspart 3 - 6 units 11/14/24 17:00 11/18/24 16:43 Insulin Aspart (*Bkc) 100 Units/Ml SUB-Q 5 units TIDWM [facility] Administration Protocol Insulin Aspart 1 - 3 units 11/14/24 21:00 11/18/24 21:33 Insulin Aspart (*Bkc) 100 Units/Ml SUB-Q 3 units HS [facility] Administration Protocol Insulin Aspart 5 units 11/18/24 17:00 11/18/24 16:43 Insulin Aspart (*Bkc) 100 Units/Ml 0.067 units/kg (5 units) 5 units SUB-Q Administration TIDWM [facility] Insulin Glargine 20 units 11/18/24 18:00 11/18/24 16:44 Insulin Glargine (*Bkc) 100 Units/Ml SUB-Q 20 units QPM ROB Administration Lidocaine 1 patch 11/19/24 15:10 Lidocaine 5% Patch TRANSDERM DAILY [facility] Lisinopril 30 mg 11/15/24 09:00 11/18/24 09:03 Lisinopril 10 Mg Tablet PO 30 mg DAILY ROB Administration Melatonin 10 mg 11/14/24 21:00 11/18/24 21:18 Melatonin 5 Mg Tablet PO 10 mg HS ROB Administration Methocarbamol 500 mg 11/15/24 10:09 11/18/24 01:56 Methocarbamol 500 Mg Tablet PO 500 mg Q8H PRN Administration muscle spasm Metoprolol Succinate 50 mg 11/15/24 09:00 11/18/24 08:59 Metoprolol Succinate Ext Rel 50 Mg Tabcr PO 50 mg DAILY ROB Administration Morphine Sulfate 2 mg 11/14/24 15:51 11/18/24 05:08 Morphine Sulfate (*Crx) 2 Mg/Ml Inj IV PUSH 2 mg Q4H PRN Administration Pain Rated 7-10 Naloxone HCl 0.1 mg 11/15/24 11:06 Naloxone Hcl 0.4 Mg/Ml Vial IV PUSH Q2M PRN Opiate Reversal Nicotine 1 patch 11/15/24 20:15 11/18/24 08:57 Nicotine (*Pbkc) 14 Mg Patch TRANSDERM Not Given DAILY ROB Olanzapine 5 mg 11/17/24 21:00 11/18/24 21:17 Olanzapine 5 Mg Tablet PO 5 mg HS ROB Administration Ondansetron HCl 4 mg 11/15/24 11:06 11/15/24 17:21 Ondansetron Inj 4 Mg/2 Ml Vial IV PUSH 4 mg Q4H PRN Administration Nausea And Vomiting Pantoprazole Sodium 40 mg 11/17/24 21:00 11/18/24 21:17 Pantoprazole 40 Mg Tablet PO 40 mg Q12HR ROB Administration Polyethylene Glycol 17 gm 11/16/24 09:00 11/18/24 08:57 Polyethylene Glycol 3350 17 Gm Powd.Pack PO 17 gm QAM ROB Administration Rosuvastatin Calcium 20 mg 11/14/24 21:00 11/18/24 21:17 Rosuvastatin 20 Mg Tablet PO 20 mg HS ROB Administration Radiology Results: ITS Impressions Chest X-Ray 11/15/24 06:36 Impression: Suspected COPD with left basilar atelectasis or scarring. Intraoperative X-Ray 11/15/24 14:13 IMPRESSION: 1. Near-anatomic alignment post open reduction internal fixation of trimalleolar fracture of the right ankle. See procedure note for further detail. Labs Labs: Laboratory Results - last 24 hr 11/18/24 11/18/24 11/18/24 11:08 16:29 21:17 POC Capillary Glucose 308 H 374 H 353 H 11/19/24 07:24 POC Capillary Glucose 274 H
[2024-11-19 09:44] LABS: Basophils Absolute Auto 0.1 K/mm3 (0.0-0.1); Basophils Percent Auto 0.6 % (0.2-1.2); Eosinophils Absolute Auto 0.5 K/mm3 (0-0.3); Eosinophils Percent Auto 3.2 % (0-4.4); Hematocrit 36.7 % (37.0-47.0); Immature Granulocyte Absolute 0.21 K/mm3 (0.00-0.031); Immature Granulocyte Percent A 1.3 % (0-0.5); Lymphocytes Absolute Auto 4.45 K/mm3 (0.9-3.2); Lymphocytes Percent Auto 27.8 % (18.3-44.2); Mean Corpuscular Hemoglobin 25.3 pg (26-34); Mean Corpuscular Volume 84.4 fl (80-100); Mean Platelet Volume 11.3 fl (7.4-10.4); Monocytes Absolute Auto 1.6 K/mm3 (0.1-0.6); Monocytes Percent Auto 10.1 % (2.6-8.5); Neutrophils Absolute Auto 9.1 K/mm3 (1.3-6.7); Nucleated Red Blood Cells Perc 0.1 % (0.0-0.2); Platelet Count Result 412 k/mm3 (150-375); Red Blood Count 4.35 M/mm3 (4.2-5.4); Red Cell Distribution Width 16.7 % (11.5-14.5)
[2024-11-19 09:56] LABS: Alanine Aminotransferase 14 U/L (6-35); Albumin Level 3.5 g/dL (3.5-5.1); Alkaline Phosphatase 144 U/L (38-126); Anion Gap 10 mmol/L (4-12); Aspartate Amino Transferase 18 U/L (14-36); Bilirubin,Total 0.4 mg/dL (0.2-1.3); Blood Urea Nitrogen 11 mg/dL (7-17); Calcium 7.7 mg/dL (8.4-10.2); Carbon Dioxide 28 mmol/L (22-30); Chloride 96 mmol/L (98-107); Estimated CRCL calculation 56 ml/min; Estimated Glomerular Filt Rate > 60; Glucose 324 mg/dL (65-110); Magnesium 0.9 mg/dL (1.6-2.3); Potassium 3.2 mmol/L (3.4-5.0); Sodium 134 mmol/L (137-145); Total Protein 6.5 g/dL (6.3-8.2)
[2024-11-19] MEDS: lisinopriL 10 MG TABLET 30 MG PO (10:46)
[2024-11-19] MEDS: CALCIUM CARBONATE (TUMS) 500 MG (200 MG ELEMENTAL) PO (10:46)
[2024-11-19] MEDS: PANTOPRAZOLE 40 MG TABLET PO ×2 (10:47→20:32)
[2024-11-19] MEDS: CYCLOBENZAPRINE HCL 10 MG TABLET PO (10:47)
[2024-11-19] MEDS: DOCUSATE SODIUM 100 MG CAPSULE PO (10:47)
[2024-11-19] MEDS: ASPIRIN 81 MG CHEWABLE TABLET PO (10:47)
[2024-11-19] MEDS: busPIRone HCL 5 MG TABLET 15 MG PO ×2 (10:47→16:54)
[2024-11-19 10:48] VITALS: PULSE 88
[2024-11-19] MEDS: FLUoxetine HCL 20 MG CAPSULE PO (10:48)
[2024-11-19] MEDS: amLODIPine BESYLATE 10 MG TABLET PO (10:48)
[2024-11-19] MEDS: GABAPENTIN 100 MG CAPSULE PO ×3 (10:48→16:54)
[2024-11-19] MEDS: METOPROLOL SUCCINATE EXT REL 50 MG TABCR PO (10:48)
[2024-11-19] MEDS: FUROSEMIDE 20 MG TABLET PO (10:48)
[2024-11-19 11:42] LABS: Glucose Point of Care 368 mg/dl (65-105)
--- NOTE | 2024-11-19 12:11 | P.PNIM_ITS ---
Progress Note: A&P Assessment and Plan (1) Displaced bimalleolar fracture of right ankle: Qualifiers: Encounter type: initial encounter Fracture type: closed Qualified Code(s): S82.841A - Displaced bimalleolar fracture of right lower leg, initial encounter for closed fracture Code(s): S82.841A - Displaced bimalleolar fracture of right lower leg, initial encounter for closed fracture Status: Acute Assessment and Plan: Mechanical ground level fall. Denies head strike and LOC. Per patient has been having difficulties with ambulation for several months. Only able to walk short distances using walker. reports at least 10 falls this month. Ankle xr showed right displaced bimalleolar fracture Ankle xr following reduction showed partial reduction of displaced bimalleolar fracture Analgesics PT/OT, weight bearing per ortho is non weight bearing Plan for patient to go to SNF. Care coordination following. Per patient has fallen at least 10 times this month. Ortho consulted s/p open reduction internal fixation right ankle bimalleolar fracture with fixation of medial and lateral fractures on 11/[address] Rosales outpatient follow up in 1-2 weeks POD #3: Open reduction internal fixation right ankle bimalleolar fracture with fixation of medial and lateral fractures (2) Hypertension: Code(s): I10 - Essential (primary) hypertension Status: Acute Assessment and Plan: Chronic, continue home medications - amlodipine 10 mg daily - lasix 20 mg daily - lisinopril 30 mg daily - metoprolol 50 mg daily - blood pressures remain stable, continue to monitor (3) Diabetes: Code(s): E11.9 - Type 2 diabetes mellitus without complications Status: Acute Assessment and Plan: - hypoglycemia protocol - POC blood glucose ACHS - home medication - lantus 10 units and SSI aspart - correct regimen ordered - lantus 10 units and mod SSI - A1C 9.9 on 11/16 Glucose 405 following surgery. Given 6 units novolog x1. Continue to monitor glucose. noted that BS is consistently above 200 and even higher (284, 334, 234) will increase lantus to 20 units and monitor close adjust based on fasting BS (4) Depression: Code(s): F32.A - Depression, unspecified Status: Acute Assessment and Plan: Continue home medications Patient follows [facility] No mental health concerns at this time (5) Hypomagnesemia: Code(s): E83.42 - Hypomagnesemia Status: Acute Assessment and Plan: * Magnesium 0.9. * Magnesium Sulfate 3 gram IVPB x 1. * Repeat magnesium 2.3. * Trend magnesium level. (6) Hypokalemia: Code(s): E87.6 - Hypokalemia Status: Acute Assessment and Plan: * Potassium 3.2. Patient given Potassium Chloride 40 meq PO x 1. * Repeat Potassium 3.5. Give Potassium Chloride 20 meq PO x 1. * Trend level. (7) Elevated alkaline phosphatase level: Code(s): R74.8 - Abnormal levels of other serum enzymes Status: Acute Assessment and Plan: * 146>144. * Trend level. Subjective Date/time seen: 11/19/24 12:11 Interval history: Patient sitting up in chair. Patient denies chest pain, palpitations, leg/ ankle pain, nausea, vomiting, headache, or dizziness. Review of Systems Review of Systems: All systems reviewed & are unremarkable except as noted in HPI and below Exam Const: General: comfortable and no acute distress Resp: Effort & Inspection: normal respiratory effort Auscultation: clear to auscultation bilaterally Cardio: Rate: regular rate Rhythm: regular rhythm GI: GI Palp: Yes Soft to palpation Auscultation: normal bowel sounds Neuro: Speech: normal speech Extrem: General: no pedal edema Other: Hard cast to the right leg. Sensation intact. Wiggling toes. Psych: Mental Status: mental status grossly normal Affect: normal affect Objective Data Vital Signs Vital Signs: Vital Signs - 24 hr 11/18/24 14:00 11/18/24 20:00 11/18/24 21:12 Temperature 97.4 F L Pulse Rate 80 Respiratory Rate 18 Blood Pressure 110/61 Pulse Oximetry 92 92 Oxygen Delivery Room Air Room Air 11/18/24 21:44 11/19/24 05:35 11/19/24 10:48 Temperature 98.2 F 98.2 F Pulse Rate 79 78 88 Respiratory Rate 16 16 Blood Pressure 128/69 105/50 L Pulse Oximetry 91 92 Oxygen Delivery Intake/Output Intake/Output: Intake & Output 11/16/24 11/17/24 11/18/24 11/19/24 23:59 23:59 23:59 23:59 Intake Total 680 1380 720 240 Output Total 800 400 200 500 Balance -120 980 520 -260 Meds/Results Medications: Active Medications Generic Name Dose Route Start Last Admin Trade Name Freq PRN Reason Stop Dose Admin Acetaminophen 650 mg 11/14/24 15:51 11/19/24 05:17 Acetaminophen 325 Mg Tablet PO 650 mg Q4H PRN Administration Mild Pain (1-3) or Fever Hydrocodone Bitart/Acetaminophen 1 tab 11/14/24 15:51 11/19/24 10:48 Hydrocodone/Acetaminophen (*Crx) 5-325 Mg Tablet PO 1 tab Q4H PRN Administration Moderate Pain (4-6) Albuterol 2 puff 11/14/24 15:53 Albuterol Sulfate (*Sp) Aerosol 1 Puff INHALATION Q4H PRN Shortness Of Breath Amlodipine Besylate 10 mg 11/15/24 09:00 11/19/24 10:48 Amlodipine Besylate 10 Mg Tablet PO 10 mg DAILY ROB Administration Aspirin 81 mg 11/15/24 09:00 11/19/24 10:47 Aspirin 81 Mg Chewable Tablet PO 81 mg DAILY ROB Administration Buspirone HCl 15 mg 11/17/24 17:00 11/19/24 10:47 Buspirone Hcl 5 Mg Tablet PO 15 mg BID ROB Administration Calcium Carbonate 500 mg 11/16/24 09:00 11/19/24 10:46 Calcium Carbonate (Tums) 500 Mg (200 Mg Elemental) PO 500 mg DAILY ROB Administration Cyclobenzaprine HCl 10 mg 11/14/24 15:53 11/19/24 10:47 Cyclobenzaprine Hcl 10 Mg Tablet PO 10 mg TID PRN Administration Muscle Spasm Dextrose 12.5 gm 11/14/24 16:40 Dextrose 50% 25 Gm/50 Ml Syringe IV PUSH PRN PRN Hypoglycemia Protocol Docusate Sodium 100 mg 11/14/24 17:00 11/19/24 10:47 Docusate Sodium 100 Mg Capsule PO 100 mg BID ORB Administration Fluoxetine HCl 40 mg 11/17/24 21:00 11/18/24 21:17 Fluoxetine Hcl 20 Mg Capsule PO 40 mg HS ROB Administration Fluoxetine HCl 20 mg 11/18/24 09:00 11/19/24 10:48 Fluoxetine Hcl 20 Mg Capsule PO 20 mg DAILY ROB Administration Furosemide 20 mg 11/15/24 09:00 11/19/24 10:48 Furosemide 20 Mg Tablet PO 20 mg DAILY ROB Administration Gabapentin 100 mg 11/17/24 17:00 11/19/24 10:48 Gabapentin 100 Mg Capsule PO 100 mg TID ROB Administration Glucagon 1 mg 11/14/24 16:40 Glucagon For Inj 1 Mg Vial IM PRN PRN Hypoglycemia Protocol Glucose 15 gm 11/14/24 16:40 Glucose Oral Gel 15 Gm Of Glucse In 37.5 Gm Tube PO PRN PRN Hypoglycemia Protocol Dextrose 1,000 mls @ 100 mls/hr 11/14/24 16:40 Dextrose 5% 1,000 Ml IVPB PRN PRN Hypoglycemia Protocol Lactated Ringer's 1,000 mls @ 30 mls/hr 11/15/24 10:10 11/18/24 09:01 Lr - Lactated Ringers Iv IV CONT Not Given .Q24H ROB Ibuprofen 800 mg in 200 mls @ 400 mls/hr 11/15/24 11:06 11/17/24 08:00 Caldolor 800 Mg/200 Ml IVPB Infused Q6H PRN Infusion Breakthrough Pain Rated 1-3 or NPO Magnesium Sulfate/Dextrose 3 gm in 100 mls @ 33.333 mls/hr 11/19/24 09:59 Magnesium Sulfate 3gm/[id number] IVPB 11/19/24 12:58 ONCE ONE Insulin Aspart 3 - 6 units 11/14/24 17:00 11/18/24 16:43 Insulin Aspart (*Bkc) 100 Units/Ml SUB-Q 5 units TIDWM [facility] Administration Protocol Insulin Aspart 1 - 3 units 11/14/24 21:00 11/18/24 21:33 Insulin Aspart (*Bkc) 100 Units/Ml SUB-Q 3 units HS [facility] Administration Protocol Insulin Aspart 5 units 11/18/24 17:00 11/18/24 16:43 Insulin Aspart (*Bkc) 100 Units/Ml 0.067 units/kg (5 units) 5 units SUB-Q Administration TIDWM [facility] Insulin Glargine 20 units 11/18/24 18:00 11/18/24 16:44 Insulin Glargine (*Bkc) 100 Units/Ml SUB-Q 20 units QPM ROB Administration Lidocaine 1 patch 11/19/24 15:10 Lidocaine 5% Patch TRANSDERM DAILY ROB Lisinopril 30 mg 11/15/24 09:00 11/19/24 10:46 Lisinopril 10 Mg Tablet PO 30 mg DAILY ROB Administration Melatonin 10 mg 11/14/24 21:00 11/18/24 21:18 Melatonin 5 Mg Tablet PO 10 mg HS ROB Administration Methocarbamol 500 mg 11/15/24 10:09 11/18/24 01:56 Methocarbamol 500 Mg Tablet PO 500 mg Q8H PRN Administration muscle spasm Metoprolol Succinate 50 mg 11/15/24 09:00 11/19/24 10:48 Metoprolol Succinate Ext Rel 50 Mg Tabcr PO 50 mg DAILY ROB Administration Morphine Sulfate 2 mg 11/14/24 15:51 11/18/24 05:08 Morphine Sulfate (*Crx) 2 Mg/Ml Inj IV PUSH 2 mg Q4H PRN Administration Pain Rated 7-10 Naloxone HCl 0.1 mg 11/15/24 11:06 Naloxone Hcl 0.4 Mg/Ml Vial IV PUSH Q2M PRN Opiate Reversal Nicotine 1 patch 11/15/24 20:15 11/18/24 08:57 Nicotine (*Pbkc) 14 Mg Patch TRANSDERM Not Given DAILY ROB Olanzapine 5 mg 11/17/24 21:00 11/18/24 21:17 Olanzapine 5 Mg Tablet PO 5 mg HS ROB Administration Ondansetron HCl 4 mg 11/15/24 11:06 11/15/24 17:21 Ondansetron Inj 4 Mg/2 Ml Vial IV PUSH 4 mg Q4H PRN Administration Nausea And Vomiting Pantoprazole Sodium 40 mg 11/17/24 21:00 11/19/24 10:47 Pantoprazole 40 Mg Tablet PO 40 mg Q12HR ROB Administration Polyethylene Glycol 17 gm 11/16/24 09:00 11/18/24 08:57 Polyethylene Glycol 3350 17 Gm Powd.Pack PO 17 gm QAM ROB Administration Rosuvastatin Calcium 20 mg 11/14/24 21:00 11/18/24 21:17 Rosuvastatin 20 Mg Tablet PO 20 mg HS ROB Administration Radiology Results: ITS Impressions Chest X-Ray 11/15/24 06:36 Impression: Suspected COPD with left basilar atelectasis or scarring. Intraoperative X-Ray 11/15/24 14:13 IMPRESSION: 1. Near-anatomic alignment post open reduction internal fixation of trimalleolar fracture of the right ankle. See procedure note for further detail. Labs Labs: Laboratory Results - last 24 hr 11/18/24 11/18/24 11/19/24 16:29 21:17 07:24 WBC RBC Hgb Hct MCV MCH MCHC RDW Plt Count MPV Immature Gran % (Auto) Neut % (Auto) Lymph % (Auto) [place] % (Auto) Eos % (Auto) Baso % (Auto) Lymph # (Auto) [place] # (Auto) Eos # (Auto) Baso # (Auto) Abs Immat Gran (auto) Absolute Neuts (auto) Absolute Nucleated RBC Nucleated RBC % Sodium Potassium Chloride Carbon Dioxide Anion Gap BUN Creatinine Estim Creat Clear Calc Estimated GFR Glucose POC Capillary Glucose 374 H 353 H 274 H Calcium Magnesium Total Bilirubin AST ALT Alkaline Phosphatase Total Protein Albumin 11/19/24 11/19/24 09:31 11:38 WBC 16.0 H RBC 4.35 Hgb 11.0 L Hct 36.7 L MCV 84.4 MCH 25.3 L MCHC 30.0 L RDW 16.7 H Plt Count 412 H MPV 11.3 H Immature Gran % (Auto) 1.3 H Neut % (Auto) 57.0 Lymph % (Auto) 27.8 [place] % (Auto) 10.1 H Eos % (Auto) 3.2 Baso % (Auto) 0.6 Lymph # (Auto) 4.45 H [place] # (Auto) 1.6 H Eos # (Auto) 0.5 H Baso # (Auto) 0.1 Abs Immat Gran (auto) 0.21 H Absolute Neuts (auto) 9.1 H Absolute Nucleated RBC 0.020 H Nucleated RBC % 0.1 Sodium 134 L Potassium 3.2 L Chloride 96 L Carbon Dioxide 28 Anion Gap 10 BUN 11 Creatinine 0.87 Estim Creat Clear Calc 56 Estimated GFR > 60 Glucose 324 H POC Capillary Glucose 368 H Calcium 7.7 L Magnesium 0.9 L Total Bilirubin 0.4 AST 18 ALT 14 Alkaline Phosphatase 144 H Total Protein 6.5 Albumin 3.5 Quality VTE Prophylaxis VTE prophylaxis: mechanical ordered
[2024-11-19] MEDS: MAGNESIUM SULFATE 3GM/D5W100ML 3 GM/100 ML BAG IVPB (12:25)
[2024-11-19] MEDS: INSULIN ASPART (*BKC) 100 UNITS/ML SUB-Q ×5 (12:26→21:00)
[2024-11-19] MEDS: POTASSIUM CHLORIDE 20 MEQ ER TABLET 40 MEQ PO (12:40)
[2024-11-19 13:52] VITALS: BP 106/56; PULSE 92; RESP 16; TEMP 35.8; O2SAT 90
[2024-11-19 16:17] LABS: Glucose Point of Care 285 mg/dl (65-105)
[2024-11-19 16:23] LABS: Magnesium 2.3 mg/dL (1.6-2.3); Potassium 3.5 mmol/L (3.4-5.0)
[2024-11-19] MEDS: POTASSIUM CHLORIDE 20 MEQ ER TABLET PO (17:41)
[2024-11-19] MEDS: INSULIN GLARGINE (*BKC) 100 UNITS/ML 20 UNITS SUB-Q (17:41)
[2024-11-19] MEDS: LIDOCAINE 5% PATCH 1 PATCH TRANSDERM (17:43)
[2024-11-19] MEDS: FLUoxetine HCL 20 MG CAPSULE 40 MG PO (20:31)
[2024-11-19] MEDS: ROSUVASTATIN 20 MG TABLET PO (20:31)
[2024-11-19] MEDS: MELATONIN 5 MG TABLET 10 MG PO (20:32)
[2024-11-19] MEDS: OLANZapine 5 MG TABLET PO (20:32)
[2024-11-19 20:48] LABS: Glucose Point of Care 262 mg/dl (65-105)
[2024-11-19 21:20] VITALS: BP 138/66; PULSE 78; RESP 16; TEMP 35.7; O2SAT 91
[2024-11-20] MEDS: HYDROcodone/acetaminophen (*CRX) 5-325 MG TABLET 1 TAB PO ×3 (05:17→18:06)
[2024-11-20 06:00] VITALS: BP 121/54; PULSE 86; RESP 16; TEMP 36.1; O2SAT 92
[2024-11-20 06:34] LABS: Basophils Absolute Auto 0.1 K/mm3 (0.0-0.1); Basophils Percent Auto 0.6 % (0.2-1.2); Eosinophils Absolute Auto 0.5 K/mm3 (0-0.3); Eosinophils Percent Auto 3.7 % (0-4.4); Hemoglobin 10.7 g/dL (12.0-15.0); Immature Granulocyte Absolute 0.11 K/mm3 (0.00-0.031); Immature Granulocyte Percent A 0.9 % (0-0.5); Lymphocytes Absolute Auto 3.13 K/mm3 (0.9-3.2); Lymphocytes Percent Auto 24.2 % (18.3-44.2); Mean Corpuscular HGB Conc 29.7 g/dl (32-36); Mean Corpuscular Volume 84.1 fl (80-100); Mean Platelet Volume 11.2 fl (7.4-10.4); Monocytes Absolute Auto 1.2 K/mm3 (0.1-0.6); Monocytes Percent Auto 9.1 % (2.6-8.5); Neutrophils Absolute Auto 7.9 K/mm3 (1.3-6.7); Neutrophils Percent Auto 61.5 % (45.5-73.1); Nucleated Red Blood Cells Perc 0.2 % (0.0-0.2); Platelet Count Result 369 k/mm3 (150-375); Red Blood Count 4.28 M/mm3 (4.2-5.4); Red Cell Distribution Width 16.9 % (11.5-14.5); White Blood Count 12.9 K/mm3 (4.5-10.0)
[2024-11-20 06:47] LABS: Alanine Aminotransferase 12 U/L (6-35); Albumin Level 3.4 g/dL (3.5-5.1); Alkaline Phosphatase 149 U/L (38-126); Anion Gap 8 mmol/L (4-12); Aspartate Amino Transferase 17 U/L (14-36); Bilirubin,Total 0.4 mg/dL (0.2-1.3); Blood Urea Nitrogen 10 mg/dL (7-17); Calcium 8.1 mg/dL (8.4-10.2); Carbon Dioxide 27 mmol/L (22-30); Chloride 100 mmol/L (98-107); Estimated CRCL calculation 56 ml/min; Estimated Glomerular Filt Rate > 60; Glucose 273 mg/dL (65-110); Magnesium 1.9 mg/dL (1.6-2.3); Potassium 3.5 mmol/L (3.4-5.0); Sodium 135 mmol/L (137-145); Total Protein 6.4 g/dL (6.3-8.2)
[2024-11-20 08:08] LABS: Glucose Point of Care 236 mg/dl (65-105)
[2024-11-20] MEDS: MAGNESIUM OXIDE 400 MG TABLET PO (09:00)
[2024-11-20] MEDS: GABAPENTIN 100 MG CAPSULE PO ×3 (09:00→17:39)
[2024-11-20] MEDS: PANTOPRAZOLE 40 MG TABLET PO ×2 (09:00→21:11)
[2024-11-20] MEDS: busPIRone HCL 5 MG TABLET 15 MG PO ×2 (09:00→17:39)
[2024-11-20] MEDS: POTASSIUM CHLORIDE 20 MEQ ER TABLET 40 MEQ PO (09:00)
[2024-11-20] MEDS: FLUoxetine HCL 20 MG CAPSULE PO (09:01)
[2024-11-20] MEDS: DOCUSATE SODIUM 100 MG CAPSULE PO ×2 (09:01→17:39)
[2024-11-20] MEDS: lisinopriL 10 MG TABLET 30 MG PO (09:02)
[2024-11-20] MEDS: ASPIRIN 81 MG CHEWABLE TABLET PO (09:02)
[2024-11-20] MEDS: FUROSEMIDE 20 MG TABLET PO (09:02)
[2024-11-20] MEDS: amLODIPine BESYLATE 10 MG TABLET PO (09:03)
[2024-11-20] MEDS: LIDOCAINE 5% PATCH 1 PATCH TRANSDERM (09:04)
[2024-11-20 09:05] VITALS: PULSE 86
[2024-11-20] MEDS: INSULIN ASPART (*BKC) 100 UNITS/ML SUB-Q ×5 (09:05→21:19)
[2024-11-20] MEDS: METOPROLOL SUCCINATE EXT REL 50 MG TABCR PO (09:05)
--- NOTE | 2024-11-20 11:12 | P.PNIM_ITS ---
Progress Note: A&P Assessment and Plan (1) Displaced bimalleolar fracture of right ankle: Qualifiers: Encounter type: initial encounter Fracture type: closed Qualified Code(s): S82.841A - Displaced bimalleolar fracture of right lower leg, initial encounter for closed fracture Code(s): S82.841A - Displaced bimalleolar fracture of right lower leg, initial encounter for closed fracture Status: Acute Assessment and Plan: Mechanical ground level fall. Denies head strike and LOC. Per patient has been having difficulties with ambulation for several months. Only able to walk short distances using walker. reports at least 10 falls this month. Ankle xr showed right displaced bimalleolar fracture Ankle xr following reduction showed partial reduction of displaced bimalleolar fracture Analgesics PT/OT, weight bearing per ortho is non weight bearing Plan for patient to go to SNF. Care coordination following. Per patient has fallen at least 10 times this month. Ortho consulted s/p open reduction internal fixation right ankle bimalleolar fracture with fixation of medial and lateral fractures on 11/[address] Rosales outpatient follow up in 1-2 weeks POD #3: Open reduction internal fixation right ankle bimalleolar fracture with fixation of medial and lateral fractures (2) Hypertension: Code(s): I10 - Essential (primary) hypertension Status: Acute Assessment and Plan: Chronic, continue home medications - amlodipine 10 mg daily - lasix 20 mg daily - lisinopril 30 mg daily - metoprolol 50 mg daily - blood pressures remain stable, continue to monitor (3) Diabetes: Code(s): E11.9 - Type 2 diabetes mellitus without complications Status: Acute Assessment and Plan: - hypoglycemia protocol - POC blood glucose ACHS - home medication - lantus 10 units and SSI aspart - correct regimen ordered - lantus 10 units and mod SSI - A1C 9.9 on 11/16 Glucose 405 following surgery. Given 6 units novolog x1. Continue to monitor glucose. 11/20 blood sugars yesterday running 262-368. Lantus increased 22 units HS and mealtime Aspart increased to 6 units. media center specialist following, appreciate recommendations. (4) Depression: Code(s): F32.A - Depression, unspecified Status: Acute Assessment and Plan: Continue home medications Patient follows [facility] No mental health concerns at this time (5) Hypomagnesemia: Code(s): E83.42 - Hypomagnesemia Status: Acute Assessment and Plan: * Magnesium improved from 0.9 to 2.3 after receiving Magnesium Sulfate 3 gram IVPB x 1 yesterday. * Magnesium today 1.9. Start Magnesium Oxide 400 mg PO daily. * Trend magnesium level. (6) Hypokalemia: Code(s): E87.6 - Hypokalemia Status: Acute Assessment and Plan: * Potassium 3.5. Give Potassium Chloride 40 meq PO x 1. * Trend level. (7) Elevated alkaline phosphatase level: Code(s): R74.8 - Abnormal levels of other serum enzymes Status: Acute Assessment and Plan: * 146>144>149. * Trend level. Subjective Date/time seen: 11/20/24 11:12 Interval history: Patient sitting up in chair. Patient reports that left butt pain is 4 from constantly compensating for right leg, pain is constant, and aching. Patient denies chest pain, palpitations, leg/ankle pain, nausea, vomiting, headache, or dizziness. Awaiting insurance approval for swing bed rehab. Review of Systems Review of Systems: All systems reviewed & are unremarkable except as noted in HPI and below Exam Const: General: comfortable and no acute distress Resp: Effort & Inspection: normal respiratory effort Auscultation: clear to auscultation bilaterally Cardio: Rate: regular rate Rhythm: regular rhythm GI: GI Palp: Yes Soft to palpation Auscultation: normal bowel sounds Neuro: Speech: normal speech Extrem: General: no pedal edema Other: Hard cast to the right leg. Sensation intact. Wiggling toes. Psych: Mental Status: mental status grossly normal Affect: normal affect Objective Data Vital Signs Vital Signs: Vital Signs - 24 hr 11/19/24 13:52 11/19/24 21:20 11/20/24 06:00 Temperature 96.4 F L 96.2 F L 96.9 F L Pulse Rate 92 78 86 Respiratory Rate 16 16 16 Blood Pressure 106/56 L 138/66 121/54 L Pulse Oximetry 90 91 92 11/20/24 09:05 Temperature Pulse Rate 86 Respiratory Rate Blood Pressure Pulse Oximetry Intake/Output Intake/Output: Intake & Output 06/17/25 06/18/25 06/19/25 06/20/25 23:59 23:59 23:59 23:59 Intake Total 1380 720 720 180 Output Total 400 200 500 Balance 980 520 220 180 Meds/Results Medications: Active Medications Generic Name Dose Route Start Last Admin Trade Name Freq PRN Reason Stop Dose Admin Acetaminophen 650 mg 11/14/24 15:51 11/19/24 05:17 Acetaminophen 325 Mg Tablet PO 650 mg Q4H PRN Administration Mild Pain (1-3) or Fever Hydrocodone Bitart/Acetaminophen 1 tab 11/14/24 15:51 11/20/24 09:12 Hydrocodone/Acetaminophen (*Crx) 5-325 Mg Tablet PO 1 tab Q4H PRN Administration Moderate Pain (4-6) Albuterol 2 puff 11/14/24 15:53 Albuterol Sulfate (*Sp) Aerosol 1 Puff INHALATION Q4H PRN Shortness Of Breath Amlodipine Besylate 10 mg 11/15/24 09:00 11/20/24 09:03 Amlodipine Besylate 10 Mg Tablet PO 10 mg DAILY ROB Administration Aspirin 81 mg 11/15/24 09:00 11/20/24 09:02 Aspirin 81 Mg Chewable Tablet PO 81 mg DAILY ROB Administration Buspirone HCl 15 mg 11/17/24 17:00 11/20/24 09:00 Buspirone Hcl 5 Mg Tablet PO 15 mg BID ROB Administration Calcium Carbonate 500 mg 11/16/24 09:00 11/19/24 10:46 Calcium Carbonate (Tums) 500 Mg (200 Mg Elemental) PO 500 mg DAILY ROB Administration Cyclobenzaprine HCl 10 mg 11/14/24 15:53 11/19/24 10:47 Cyclobenzaprine Hcl 10 Mg Tablet PO 10 mg TID PRN Administration Muscle Spasm Dextrose 12.5 gm 11/14/24 16:40 Dextrose 50% 25 Gm/50 Ml Syringe IV PUSH PRN PRN Hypoglycemia Protocol Docusate Sodium 100 mg 11/14/24 17:00 11/20/24 09:01 Docusate Sodium 100 Mg Capsule PO 100 mg BID ROB Administration Fluoxetine HCl 40 mg 11/17/24 21:00 11/19/24 20:31 Fluoxetine Hcl 20 Mg Capsule PO 40 mg HS ROB Administration Fluoxetine HCl 20 mg 11/18/24 09:00 11/20/24 09:01 Fluoxetine Hcl 20 Mg Capsule PO 20 mg DAILY ROB Administration Furosemide 20 mg 11/15/24 09:00 11/20/24 09:02 Furosemide 20 Mg Tablet PO 20 mg DAILY ROB Administration Gabapentin 100 mg 11/17/24 17:00 11/20/24 09:00 Gabapentin 100 Mg Capsule PO 100 mg TID ROB Administration Glucagon 1 mg 11/14/24 16:40 Glucagon For Inj 1 Mg Vial IM PRN PRN Hypoglycemia Protocol Glucose 15 gm 11/14/24 16:40 Glucose Oral Gel 15 Gm Of Glucse In 37.5 Gm Tube PO PRN PRN Hypoglycemia Protocol Dextrose 1,000 mls @ 100 mls/hr 11/14/24 16:40 Dextrose 5% 1,000 Ml IVPB PRN PRN Hypoglycemia Protocol Lactated Ringer's 1,000 mls @ 30 mls/hr 11/15/24 10:10 11/19/24 17:37 Lr - Lactated Ringers Iv IV CONT Not Given .Q24H ROB Ibuprofen 800 mg in 200 mls @ 400 mls/hr 11/15/24 11:06 11/17/24 08:00 Caldolor 800 Mg/200 Ml IVPB Infused Q6H PRN Infusion Breakthrough Pain Rated 1-3 or NPO Insulin Aspart 3 - 6 units 11/14/24 17:00 11/20/24 09:06 Insulin Aspart (*Bkc) 100 Units/Ml SUB-Q 3 units TIDWM [facility] Administration Protocol Insulin Aspart 1 - 3 units 11/14/24 21:00 11/19/24 21:00 Insulin Aspart (*Bkc) 100 Units/Ml SUB-Q 2 units HS [facility] Administration Protocol Insulin Aspart 5 units 11/18/24 17:00 11/20/24 09:05 Insulin Aspart (*Bkc) 100 Units/Ml 0.067 units/kg (5 units) 5 units SUB-Q Administration TIDWM [facility] Insulin Glargine 22 units 11/20/24 18:00 Insulin Glargine (*Bkc) 100 Units/Ml SUB-Q QPM ROB Lidocaine 1 patch 11/19/24 15:10 11/20/24 09:04 Lidocaine 5% Patch TRANSDERM 1 patch DAILY ROB Administration Lisinopril 30 mg 11/15/24 09:00 11/20/24 09:02 Lisinopril 10 Mg Tablet PO 30 mg DAILY ROB Administration Magnesium Oxide 400 mg 11/20/24 09:00 11/20/24 09:00 Magnesium Oxide 400 Mg Tablet PO 400 mg DAILY ROB Administration Melatonin 10 mg 11/14/24 21:00 11/19/24 20:32 Melatonin 5 Mg Tablet PO 10 mg HS ROB Administration Methocarbamol 500 mg 11/15/24 10:09 11/18/24 01:56 Methocarbamol 500 Mg Tablet PO 500 mg Q8H PRN Administration muscle spasm Metoprolol Succinate 50 mg 11/15/24 09:00 11/20/24 09:05 Metoprolol Succinate Ext Rel 50 Mg Tabcr PO 50 mg DAILY ROB Administration Morphine Sulfate 2 mg 11/14/24 15:51 11/18/24 05:08 Morphine Sulfate (*Crx) 2 Mg/Ml Inj IV PUSH 2 mg Q4H PRN Administration Pain Rated 7-10 Naloxone HCl 0.1 mg 11/15/24 11:06 Naloxone Hcl 0.4 Mg/Ml Vial IV PUSH Q2M PRN Opiate Reversal Nicotine 1 patch 11/15/24 20:15 11/20/24 09:04 Nicotine (*Pbkc) 14 Mg Patch TRANSDERM Not Given DAILY ROB Olanzapine 5 mg 11/17/24 21:00 11/19/24 20:32 Olanzapine 5 Mg Tablet PO 5 mg HS ROB Administration Ondansetron HCl 4 mg 11/15/24 11:06 11/15/24 17:21 Ondansetron Inj 4 Mg/2 Ml Vial IV PUSH 4 mg Q4H PRN Administration Nausea And Vomiting Pantoprazole Sodium 40 mg 11/17/24 21:00 11/20/24 09:00 Pantoprazole 40 Mg Tablet PO 40 mg Q12HR ROB Administration Polyethylene Glycol 17 gm 11/16/24 09:00 11/19/24 15:07 Polyethylene Glycol 3350 17 Gm Powd.Pack PO Not Given QAM [facility] Rosuvastatin Calcium 20 mg 11/14/24 21:00 11/19/24 20:31 Rosuvastatin 20 Mg Tablet PO 20 mg HS ROB Administration Radiology Results: ITS Impressions Chest X-Ray 11/15/24 06:36 Impression: Suspected COPD with left basilar atelectasis or scarring. Intraoperative X-Ray 11/15/24 14:13 IMPRESSION: 1. Near-anatomic alignment post open reduction internal fixation of trimalleolar fracture of the right ankle. See procedure note for further detail. Labs Labs: Laboratory Results - last 24 hr 11/19/24 11/19/24 11/19/24 11:38 16:07 16:10 WBC RBC Hgb Hct MCV MCH MCHC RDW Plt Count MPV Immature Gran % (Auto) Neut % (Auto) Lymph % (Auto) [place] % (Auto) Eos % (Auto) Baso % (Auto) Lymph # (Auto) [place] # (Auto) Eos # (Auto) Baso # (Auto) Abs Immat Gran (auto) Absolute Neuts (auto) Absolute Nucleated RBC Nucleated RBC % Sodium Potassium 3.5 Chloride Carbon Dioxide Anion Gap BUN Creatinine Estim Creat Clear Calc Estimated GFR Glucose POC Capillary Glucose 368 H 285 H Calcium Magnesium 2.3 Total Bilirubin AST ALT Alkaline Phosphatase Total Protein Albumin 11/19/24 11/20/24 11/20/24 20:42 05:54 07:47 WBC 12.9 H RBC 4.28 Hgb 10.7 L Hct 36.0 L MCV 84.1 MCH 25.0 L MCHC 29.7 L RDW 16.9 H Plt Count 369 MPV 11.2 H Immature Gran % (Auto) 0.9 H Neut % (Auto) 61.5 Lymph % (Auto) 24.2 [place] % (Auto) 9.1 H Eos % (Auto) 3.7 Baso % (Auto) 0.6 Lymph # (Auto) 3.13 [place] # (Auto) 1.2 H Eos # (Auto) 0.5 H Baso # (Auto) 0.1 Abs Immat Gran (auto) 0.11 H Absolute Neuts (auto) 7.9 H Absolute Nucleated RBC 0.020 H Nucleated RBC % 0.2 Sodium 135 L Potassium 3.5 Chloride 100 Carbon Dioxide 27 Anion Gap 8 BUN 10 Creatinine 0.88 Estim Creat Clear Calc 56 Estimated GFR > 60 Glucose 273 H POC Capillary Glucose 262 H 236 H Calcium 8.1 L Magnesium 1.9 Total Bilirubin 0.4 AST 17 ALT 12 Alkaline Phosphatase 149 H Total Protein 6.4 Albumin 3.4 L Quality VTE Prophylaxis VTE prophylaxis: mechanical ordered
[2024-11-20 11:55] LABS: Glucose Point of Care 330 mg/dl (65-105)
[2024-11-20] MEDS: INSULIN ASPART (*BKC) 100 UNITS/ML 6 UNITS SUB-Q ×2 (12:08→17:40)
[2024-11-20] MEDS: CALCIUM CARBONATE (TUMS) 500 MG (200 MG ELEMENTAL) PO (12:12)
--- NOTE | 2024-11-20 12:48 | PCNWS ---
Weekly nutritional screen. Patient is tolerating current diet with adequate intake. No weight loss reported. No nutritional needs at this time.
--- NOTE | 2024-11-20 13:11 | PCCDE ---
11/20/24 As per Rounds ~ 11:35 am Pt with excellent po intake, continued hyperglycemia. Agree with Lantus titration (22 U as of tonight) Recommend Increase Novolog TIDwm from 5 -> 6 U TIDwm. If fasting glucose remains high tomorrow: Increase Lantus to 24 U (20% of home known basal rate) Continue to monitor POC
[2024-11-20 14:00] VITALS: BP 122/61; PULSE 86; RESP 16; TEMP 36.7; O2SAT 94
[2024-11-20 16:46] LABS: Glucose Point of Care 330 mg/dl (65-105)
[2024-11-20] MEDS: INSULIN GLARGINE (*BKC) 100 UNITS/ML 22 UNITS SUB-Q (17:43)
[2024-11-20] MEDS: CYCLOBENZAPRINE HCL 10 MG TABLET PO (21:11)
[2024-11-20] MEDS: OLANZapine 5 MG TABLET PO (21:11)
[2024-11-20 21:12] LABS: Glucose Point of Care 252 mg/dl (65-105)
[2024-11-20] MEDS: ROSUVASTATIN 20 MG TABLET PO (21:12)
[2024-11-20] MEDS: FLUoxetine HCL 20 MG CAPSULE 40 MG PO (21:12)
[2024-11-20] MEDS: MORPHINE SULFATE (*CRX) 2 MG/ML INJ IV PUSH (21:12)
[2024-11-20] MEDS: MELATONIN 5 MG TABLET 10 MG PO (21:14)
[2024-11-20 21:39] VITALS: BP 121/53; PULSE 89; RESP 16; TEMP 36.2; O2SAT 91
[2024-11-21] MEDS: methocarbamoL 500 MG TABLET PO (03:47)
[2024-11-21] MEDS: MORPHINE SULFATE (*CRX) 2 MG/ML INJ IV PUSH (03:47)
[2024-11-21 06:00] VITALS: PULSE 87; RESP 20; TEMP 35.9; O2SAT 94
[2024-11-21 07:12] LABS: Basophils Absolute Auto 0.1 K/mm3 (0.0-0.1); Basophils Percent Auto 0.7 % (0.2-1.2); Eosinophils Absolute Auto 0.6 K/mm3 (0-0.3); Eosinophils Percent Auto 3.8 % (0-4.4); Hematocrit 35.5 % (37.0-47.0); Hemoglobin 10.6 g/dL (12.0-15.0); Immature Granulocyte Absolute 0.13 K/mm3 (0.00-0.031); Immature Granulocyte Percent A 0.9 % (0-0.5); Lymphocytes Absolute Auto 3.84 K/mm3 (0.9-3.2); Lymphocytes Percent Auto 25.3 % (18.3-44.2); Mean Corpuscular HGB Conc 29.9 g/dl (32-36); Mean Corpuscular Hemoglobin 25.1 pg (26-34); Mean Corpuscular Volume 84.1 fl (80-100); Mean Platelet Volume 11.4 fl (7.4-10.4); Monocytes Absolute Auto 1.5 K/mm3 (0.1-0.6); Monocytes Percent Auto 9.7 % (2.6-8.5); Neutrophils Absolute Auto 9.1 K/mm3 (1.3-6.7); Neutrophils Percent Auto 59.6 % (45.5-73.1); Platelet Count Result 406 k/mm3 (150-375); Red Blood Count 4.22 M/mm3 (4.2-5.4); White Blood Count 15.2 K/mm3 (4.5-10.0)
[2024-11-21 07:33] LABS: Alanine Aminotransferase 10 U/L (6-35); Albumin Level 3.5 g/dL (3.5-5.1); Alkaline Phosphatase 150 U/L (38-126); Anion Gap 10 mmol/L (4-12); Aspartate Amino Transferase 22 U/L (14-36); Bilirubin,Total 0.5 mg/dL (0.2-1.3); Blood Urea Nitrogen 10 mg/dL (7-17); Carbon Dioxide 26 mmol/L (22-30); Chloride 100 mmol/L (98-107); Estimated CRCL calculation 58 ml/min; Estimated Glomerular Filt Rate > 60; Glucose 216 mg/dL (65-110); Magnesium 1.8 mg/dL (1.6-2.3); Potassium 4.2 mmol/L (3.4-5.0); Sodium 136 mmol/L (137-145); Total Protein 6.7 g/dL (6.3-8.2)
[2024-11-21 07:55] LABS: Hypochromasia 1+; Platelet Estimate Increased (Adequate); Schistocytes None Seen
[2024-11-21 09:03] LABS: Glucose Point of Care 310 mg/dl (65-105)
[2024-11-21] MEDS: ASPIRIN 81 MG CHEWABLE TABLET PO (09:56)
[2024-11-21] MEDS: DOCUSATE SODIUM 100 MG CAPSULE PO ×2 (09:56→16:35)
[2024-11-21] MEDS: lisinopriL 10 MG TABLET 30 MG PO (09:56)
[2024-11-21] MEDS: HYDROcodone/acetaminophen (*CRX) 5-325 MG TABLET 1 TAB PO ×2 (09:56→16:33)
[2024-11-21] MEDS: CALCIUM CARBONATE (TUMS) 500 MG (200 MG ELEMENTAL) PO (09:56)
[2024-11-21] MEDS: PANTOPRAZOLE 40 MG TABLET PO ×2 (09:57→20:44)
[2024-11-21] MEDS: GABAPENTIN 100 MG CAPSULE PO ×3 (09:57→16:34)
[2024-11-21] MEDS: amLODIPine BESYLATE 10 MG TABLET PO (09:57)
[2024-11-21] MEDS: MAGNESIUM OXIDE 400 MG TABLET PO (09:57)
[2024-11-21] MEDS: FLUoxetine HCL 20 MG CAPSULE PO (09:57)
[2024-11-21 09:58] VITALS: PULSE 86
[2024-11-21] MEDS: busPIRone HCL 5 MG TABLET 15 MG PO ×2 (09:58→16:34)
[2024-11-21] MEDS: METOPROLOL SUCCINATE EXT REL 50 MG TABCR PO (09:58)
[2024-11-21] MEDS: FUROSEMIDE 20 MG TABLET PO (09:58)
[2024-11-21] MEDS: INSULIN ASPART (*BKC) 100 UNITS/ML SUB-Q ×3 (09:59→21:58)
[2024-11-21] MEDS: INSULIN ASPART (*BKC) 100 UNITS/ML 6 UNITS SUB-Q ×3 (10:00→17:12)
[2024-11-21] MEDS: LIDOCAINE 5% PATCH 1 PATCH TRANSDERM (10:06)
--- NOTE | 2024-11-21 10:20 | P.PNIM_ITS ---
Progress Note: A&P Assessment and Plan (1) Displaced bimalleolar fracture of right ankle: Qualifiers: Encounter type: initial encounter Fracture type: closed Qualified Code(s): S82.841A - Displaced bimalleolar fracture of right lower leg, initial encounter for closed fracture Code(s): S82.841A - Displaced bimalleolar fracture of right lower leg, initial encounter for closed fracture Status: Acute Assessment and Plan: Mechanical ground level fall. Denies head strike and LOC. Per patient has been having difficulties with ambulation for several months. Only able to walk short distances using walker. reports at least 10 falls this month. Ankle xr showed right displaced bimalleolar fracture Ankle xr following reduction showed partial reduction of displaced bimalleolar fracture Analgesics PT/OT, weight bearing per ortho is non weight bearing Plan for patient to go to SNF. Care coordination following. Per patient has fallen at least 10 times this month. Ortho consulted s/p open reduction internal fixation right ankle bimalleolar fracture with fixation of medial and lateral fractures on 11/[address] Rosales outpatient follow up in 1-2 weeks POD #3: Open reduction internal fixation right ankle bimalleolar fracture with fixation of medial and lateral fractures (2) Hypertension: Code(s): I10 - Essential (primary) hypertension Status: Acute Assessment and Plan: Chronic, continue home medications - amlodipine 10 mg daily - lasix 20 mg daily - lisinopril 30 mg daily - metoprolol 50 mg daily - blood pressures remain stable, continue to monitor (3) Diabetes: Code(s): E11.9 - Type 2 diabetes mellitus without complications Status: Acute Assessment and Plan: - hypoglycemia protocol - POC blood glucose ACHS - home medication - lantus 10 units and SSI aspart - correct regimen ordered - lantus 10 units and mod SSI - A1C 9.9 on 11/16 Glucose 405 following surgery. Given 6 units novolog x1. Continue to monitor glucose. 11/20 blood sugars yesterday running 262-368. Lantus increased 22 units HS and mealtime Aspart increased to 6 units. clinical document improvement educator following, appreciate recommendations. 11/21 blood sugars yesterday running 236-330. Lantus increased 24 units HS. clinical document improvement educator following, appreciate recommendations. (4) Depression: Code(s): F32.A - Depression, unspecified Status: Acute Assessment and Plan: Continue home medications Patient follows [facility] No mental health concerns at this time (5) Hypomagnesemia: Code(s): E83.42 - Hypomagnesemia Status: Acute Assessment and Plan: * Magnesium today 1.8. * Increse Magnesium Oxide 400 mg PO BID. * Trend magnesium level. (6) Hypokalemia: Code(s): E87.6 - Hypokalemia Status: Acute Assessment and Plan: * Potassium 4.2, improved. * Trend level. (7) Elevated alkaline phosphatase level: Code(s): R74.8 - Abnormal levels of other serum enzymes Status: Acute Assessment and Plan: * 146>144>149>150. * Trend level. Subjective Date/time seen: 11/21/24 10:20 Interval history: Patient sitting up in chair. Patient reports pain in left hip that is an 8, constant, and aching. Patient denies chest pain, palpitations, leg/ankle pain, nausea, vomiting, headache, or dizziness. Awaiting insurance approval for swing bed rehab. Review of Systems Review of Systems: All systems reviewed & are unremarkable except as noted in HPI and below Exam Const: General: no acute distress and uncomfortable Resp: Effort & Inspection: normal respiratory effort Auscultation: clear to auscultation bilaterally Cardio: Rate: regular rate Rhythm: regular rhythm GI: GI Palp: Yes Soft to palpation Auscultation: normal bowel sounds Neuro: Speech: normal speech Extrem: General: no pedal edema Other: Hard cast to the right leg. Sensation intact. Wiggling toes. Psych: Mental Status: mental status grossly normal Affect: normal affect Objective Data Vital Signs Vital Signs: Vital Signs - 24 hr 11/20/24 14:00 11/20/24 20:00 11/20/24 21:39 Temperature 98.0 F 97.1 F L Pulse Rate 86 89 Respiratory Rate 16 16 Blood Pressure 122/61 121/53 L Pulse Oximetry 94 91 Oxygen Delivery Room Air Fraction of Inspired Oxygen 11/21/24 06:00 11/21/24 09:58 Temperature 96.7 F L Pulse Rate 87 86 Respiratory Rate 20 Blood Pressure Pulse Oximetry 94 Oxygen Delivery Fraction of Inspired Oxygen Intake/Output Intake/Output: Intake & Output 11/18/24 11/19/24 11/20/24 11/21/24 23:59 23:59 23:59 23:59 Intake Total 720 720 540 Output Total 200 500 Balance 520 220 540 Meds/Results Medications: Active Medications Generic Name Dose Route Start Last Admin Trade Name Freq PRN Reason Stop Dose Admin Acetaminophen 650 mg 11/14/24 15:51 11/19/24 05:17 Acetaminophen 325 Mg Tablet PO 650 mg Q4H PRN Administration Mild Pain (1-3) or Fever Hydrocodone Bitart/Acetaminophen 1 tab 11/14/24 15:51 11/21/24 09:56 Hydrocodone/Acetaminophen (*Crx) 5-325 Mg Tablet PO 1 tab Q4H PRN Administration Moderate Pain (4-6) Albuterol 2 puff 11/14/24 15:53 Albuterol Sulfate (*Sp) Aerosol 1 Puff INHALATION Q4H PRN Shortness Of Breath Amlodipine Besylate 10 mg 11/15/24 09:00 11/21/24 09:57 Amlodipine Besylate 10 Mg Tablet PO 10 mg DAILY ROB Administration Aspirin 81 mg 11/15/24 09:00 11/21/24 09:56 Aspirin 81 Mg Chewable Tablet PO 81 mg DAILY ROB Administration Buspirone HCl 15 mg 11/17/24 17:00 11/21/24 09:58 Buspirone Hcl 5 Mg Tablet PO 15 mg BID ROB Administration Calcium Carbonate 500 mg 11/16/24 09:00 11/21/24 09:56 Calcium Carbonate (Tums) 500 Mg (200 Mg Elemental) PO 500 mg DAILY ROB Administration Cyclobenzaprine HCl 10 mg 11/14/24 15:53 11/20/24 21:11 Cyclobenzaprine Hcl 10 Mg Tablet PO 10 mg TID PRN Administration Muscle Spasm Dextrose 12.5 gm 11/14/24 16:40 Dextrose 50% 25 Gm/50 Ml Syringe IV PUSH PRN PRN Hypoglycemia Protocol Docusate Sodium 100 mg 11/14/24 17:00 11/21/24 09:56 Docusate Sodium 100 Mg Capsule PO 100 mg BID ROB Administration Fluoxetine HCl 40 mg 11/17/24 21:00 11/20/24 21:12 Fluoxetine Hcl 20 Mg Capsule PO 40 mg HS ROB Administration Fluoxetine HCl 20 mg 11/18/24 09:00 11/21/24 09:57 Fluoxetine Hcl 20 Mg Capsule PO 20 mg DAILY ROB Administration Furosemide 20 mg 11/15/24 09:00 11/21/24 09:58 Furosemide 20 Mg Tablet PO 20 mg DAILY ROB Administration Gabapentin 100 mg 11/17/24 17:00 11/21/24 09:57 Gabapentin 100 Mg Capsule PO 100 mg TID ROB Administration Glucagon 1 mg 11/14/24 16:40 Glucagon For Inj 1 Mg Vial IM PRN PRN Hypoglycemia Protocol Glucose 15 gm 11/14/24 16:40 Glucose Oral Gel 15 Gm Of Glucse In 37.5 Gm Tube PO PRN PRN Hypoglycemia Protocol Dextrose 1,000 mls @ 100 mls/hr 11/14/24 16:40 Dextrose 5% 1,000 Ml IVPB PRN PRN Hypoglycemia Protocol Lactated Ringer's 1,000 mls @ 30 mls/hr 11/15/24 10:10 11/19/24 17:37 Lr - Lactated Ringers Iv IV CONT Not Given .Q24H ROB Ibuprofen 800 mg in 200 mls @ 400 mls/hr 11/15/24 11:06 11/17/24 08:00 Caldolor 800 Mg/200 Ml IVPB Infused Q6H PRN Infusion Breakthrough Pain Rated 1-3 or NPO Insulin Aspart 3 - 6 units 11/14/24 17:00 11/21/24 09:59 Insulin Aspart (*Bkc) 100 Units/Ml SUB-Q 5 units TIDWM ROB Administration Protocol Insulin Aspart 1 - 3 units 11/14/24 21:00 11/20/24 21:19 Insulin Aspart (*Bkc) 100 Units/Ml SUB-Q 2 units HS ROB Administration Protocol Insulin Aspart 6 units 11/20/24 12:00 11/21/24 10:00 Insulin Aspart (*Bkc) 100 Units/Ml SUB-Q 6 units TIDWM ROB Administration Insulin Glargine 24 units 11/21/24 18:00 Insulin Glargine (*Bkc) 100 Units/Ml SUB-Q QPM ROB Lidocaine 1 patch 11/19/24 15:10 11/21/24 10:06 Lidocaine 5% Patch TRANSDERM 1 patch DAILY ROB Administration Lisinopril 30 mg 11/15/24 09:00 11/21/24 09:56 Lisinopril 10 Mg Tablet PO 30 mg DAILY ROB Administration Magnesium Oxide 400 mg 11/20/24 09:00 11/21/24 09:57 Magnesium Oxide 400 Mg Tablet PO 400 mg DAILY ROB Administration Melatonin 10 mg 11/14/24 21:00 11/20/24 21:14 Melatonin 5 Mg Tablet PO 10 mg HS ROB Administration Methocarbamol 500 mg 11/15/24 10:09 11/21/24 03:47 Methocarbamol 500 Mg Tablet PO 500 mg Q8H PRN Administration muscle spasm Metoprolol Succinate 50 mg 11/15/24 09:00 11/21/24 09:58 Metoprolol Succinate Ext Rel 50 Mg Tabcr PO 50 mg DAILY ROB Administration Morphine Sulfate 2 mg 11/14/24 15:51 11/21/24 03:47 Morphine Sulfate (*Crx) 2 Mg/Ml Inj IV PUSH 2 mg Q4H PRN Administration Pain Rated 7-10 Naloxone HCl 0.1 mg 11/15/24 11:06 Naloxone Hcl 0.4 Mg/Ml Vial IV PUSH Q2M PRN Opiate Reversal Nicotine 1 patch 11/15/24 20:15 11/20/24 09:04 Nicotine (*Pbkc) 14 Mg Patch TRANSDERM Not Given DAILY ROB Olanzapine 5 mg 11/17/24 21:00 11/20/24 21:11 Olanzapine 5 Mg Tablet PO 5 mg HS ROB Administration Ondansetron HCl 4 mg 11/15/24 11:06 11/15/24 17:21 Ondansetron Inj 4 Mg/2 Ml Vial IV PUSH 4 mg Q4H PRN Administration Nausea And Vomiting Pantoprazole Sodium 40 mg 11/17/24 21:00 11/21/24 09:57 Pantoprazole 40 Mg Tablet PO 40 mg Q12HR ROB Administration Polyethylene Glycol 17 gm 11/16/24 09:00 11/20/24 12:12 Polyethylene Glycol 3350 17 Gm Powd.Pack PO Not Given Q[facility] Rosuvastatin Calcium 20 mg 11/14/24 21:00 11/20/24 21:12 Rosuvastatin 20 Mg Tablet PO 20 mg HS ROB Administration Radiology Results: ITS Impressions Chest X-Ray 11/15/24 06:36 Impression: Suspected COPD with left basilar atelectasis or scarring. Intraoperative X-Ray 11/15/24 14:13 IMPRESSION: 1. Near-anatomic alignment post open reduction internal fixation of trimalleolar fracture of the right ankle. See procedure note for further detail. Labs Labs: Laboratory Results - last 24 hr 11/20/24 11/20/24 11/20/24 11:36 16:32 21:06 WBC RBC Hgb Hct MCV MCH MCHC RDW Plt Count MPV Immature Gran % (Auto) Neut % (Auto) Lymph % (Auto) [place] % (Auto) Eos % (Auto) Baso % (Auto) Lymph # (Auto) [place] # (Auto) Eos # (Auto) Baso # (Auto) Abs Immat Gran (auto) Absolute Neuts (auto) Absolute Nucleated RBC Band Neutrophils % Nucleated RBC % Platelet Estimate Hypochromasia Schistocytes Sodium Potassium Chloride Carbon Dioxide Anion Gap BUN Creatinine Estim Creat Clear Calc Estimated GFR Glucose POC Capillary Glucose 330 H 330 H 252 H Calcium Magnesium Total Bilirubin AST ALT Alkaline Phosphatase Total Protein Albumin 11/21/24 11/21/24 06:23 08:50 WBC 15.2 H RBC 4.22 Hgb 10.6 L Hct 35.5 L MCV 84.1 MCH 25.1 L MCHC 29.9 L RDW 17.0 H Plt Count 406 H MPV 11.4 H Immature Gran % (Auto) 0.9 H Neut % (Auto) 59.6 Lymph % (Auto) 25.3 [place] % (Auto) 9.7 H Eos % (Auto) 3.8 Baso % (Auto) 0.7 Lymph # (Auto) 3.84 H [place] # (Auto) 1.5 H Eos # (Auto) 0.6 H Baso # (Auto) 0.1 Abs Immat Gran (auto) 0.13 H Absolute Neuts (auto) 9.1 H Absolute Nucleated RBC 0.000 Band Neutrophils % Not Reportable Nucleated RBC % 0.0 Platelet Estimate Increased Hypochromasia 1+ Schistocytes None seen Sodium 136 L Potassium 4.2 Chloride 100 Carbon Dioxide 26 Anion Gap 10 BUN 10 Creatinine 0.84 Estim Creat Clear Calc 58 Estimated GFR > 60 Glucose 216 H POC Capillary Glucose 310 H Calcium 9.0 Magnesium 1.8 Total Bilirubin 0.5 AST 22 ALT 10 Alkaline Phosphatase 150 H Total Protein 6.7 Albumin 3.5 Quality VTE Prophylaxis VTE prophylaxis: mechanical ordered
[2024-11-21 12:03] LABS: Glucose Point of Care 316 mg/dl (65-105)
[2024-11-21 12:31] LABS: Add Urine Microscopic? NO; Appearance Urine Clear (Clear); Bilirubin Urine Negative (Negative); Blood Urine Negative (Negative); Color Urine Yellow (Yellow); Glucose Urine UA 3+ mg/dL (Negative); Ketones Urine Negative (Negative); Leukocyte Esterase Ur Negative LEU/UL (Negative); Nitrate Urine Negative (Negative); Protein Urine Negative (Negative); Specific Grav Ur 1.011 (1.001-1.035); pH Urine 7.5 (5.0-9.0)
[2024-11-21 14:00] VITALS: BP 101/53; PULSE 90; RESP 16; TEMP 36.6; O2SAT 93
[2024-11-21 16:58] LABS: Glucose Point of Care 185 mg/dl (65-105)
[2024-11-21] MEDS: INSULIN GLARGINE (*BKC) 100 UNITS/ML 24 UNITS SUB-Q (17:13)
[2024-11-21] MEDS: FLUoxetine HCL 20 MG CAPSULE 40 MG PO (20:43)
[2024-11-21] MEDS: ROSUVASTATIN 20 MG TABLET PO (20:44)
[2024-11-21] MEDS: MELATONIN 5 MG TABLET 10 MG PO (20:44)
[2024-11-21] MEDS: CYCLOBENZAPRINE HCL 10 MG TABLET PO (20:44)
[2024-11-21] MEDS: OLANZapine 5 MG TABLET PO (20:44)
[2024-11-21 21:47] LABS: Glucose Point of Care 247 mg/dl (65-105)
[2024-11-21 22:00] VITALS: BP 135/52; PULSE 82; RESP 18; TEMP 36.2; O2SAT 97
[2024-11-22] MEDS: HYDROcodone/acetaminophen (*CRX) 5-325 MG TABLET 1 TAB PO ×4 (01:41→21:17)
[2024-11-22] MEDS: methocarbamoL 500 MG TABLET PO (01:43)
[2024-11-22 06:00] VITALS: BP 132/70; PULSE 82; RESP 18; TEMP 36.2; O2SAT 98
[2024-11-22 06:45] LABS: Basophils Absolute Auto 0.1 K/mm3 (0.0-0.1); Eosinophils Absolute Auto 0.8 K/mm3 (0-0.3); Eosinophils Percent Auto 5.6 % (0-4.4); Hematocrit 36.4 % (37.0-47.0); Immature Granulocyte Absolute 0.13 K/mm3 (0.00-0.031); Lymphocytes Absolute Auto 3.82 K/mm3 (0.9-3.2); Lymphocytes Percent Auto 27.9 % (18.3-44.2); Mean Corpuscular HGB Conc 30.2 g/dl (32-36); Mean Corpuscular Volume 82.7 fl (80-100); Mean Platelet Volume 10.8 fl (7.4-10.4); Monocytes Absolute Auto 1.4 K/mm3 (0.1-0.6); Monocytes Percent Auto 10.5 % (2.6-8.5); Neutrophils Absolute Auto 7.4 K/mm3 (1.3-6.7); Platelet Count Result 418 k/mm3 (150-375); Red Cell Distribution Width 16.5 % (11.5-14.5); White Blood Count 13.7 K/mm3 (4.5-10.0)
[2024-11-22 07:06] LABS: Alanine Aminotransferase 12 U/L (6-35); Albumin Level 3.7 g/dL (3.5-5.1); Alkaline Phosphatase 142 U/L (38-126); Anion Gap 11 mmol/L (4-12); Aspartate Amino Transferase 15 U/L (14-36); Bilirubin,Total 0.4 mg/dL (0.2-1.3); Blood Urea Nitrogen 13 mg/dL (7-17); Calcium 9.2 mg/dL (8.4-10.2); Carbon Dioxide 28 mmol/L (22-30); Chloride 99 mmol/L (98-107); Estimated CRCL calculation 51 ml/min; Estimated Glomerular Filt Rate 58; Glucose 255 mg/dL (65-110); Magnesium 1.7 mg/dL (1.6-2.3); Sodium 138 mmol/L (137-145)
[2024-11-22 07:56] LABS: Glucose Point of Care 265 mg/dl (65-105)
[2024-11-22] MEDS: busPIRone HCL 5 MG TABLET 15 MG PO ×2 (08:25→17:10)
[2024-11-22] MEDS: FUROSEMIDE 20 MG TABLET PO (08:25)
[2024-11-22 08:26] VITALS: PULSE 82
[2024-11-22] MEDS: lisinopriL 10 MG TABLET 30 MG PO (08:26)
[2024-11-22] MEDS: METOPROLOL SUCCINATE EXT REL 50 MG TABCR PO (08:26)
[2024-11-22] MEDS: GABAPENTIN 100 MG CAPSULE PO ×3 (08:26→17:10)
[2024-11-22] MEDS: PANTOPRAZOLE 40 MG TABLET PO ×2 (08:26→21:19)
[2024-11-22] MEDS: MAGNESIUM OXIDE 400 MG TABLET PO ×2 (08:27→17:10)
[2024-11-22] MEDS: amLODIPine BESYLATE 10 MG TABLET PO (08:27)
[2024-11-22] MEDS: FLUoxetine HCL 20 MG CAPSULE PO (08:27)
[2024-11-22] MEDS: LIDOCAINE 5% PATCH 1 PATCH TRANSDERM (08:27)
[2024-11-22] MEDS: ASPIRIN 81 MG CHEWABLE TABLET PO (08:27)
[2024-11-22] MEDS: DOCUSATE SODIUM 100 MG CAPSULE PO ×2 (08:27→17:10)
[2024-11-22] MEDS: CALCIUM CARBONATE (TUMS) 500 MG (200 MG ELEMENTAL) PO (08:27)
[2024-11-22] MEDS: INSULIN ASPART (*BKC) 100 UNITS/ML 6 UNITS SUB-Q ×3 (08:29→17:13)
[2024-11-22] MEDS: INSULIN ASPART (*BKC) 100 UNITS/ML SUB-Q ×3 (08:30→17:14)
--- NOTE | 2024-11-22 11:20 | PM.IMPN ---
Progress Note: A&P Assessment and Plan (1) Displaced bimalleolar fracture of right ankle: Qualifiers: Encounter type: initial encounter Fracture type: closed Qualified Code(s): S82.841A - Displaced bimalleolar fracture of right lower leg, initial encounter for closed fracture Code(s): S82.841A - Displaced bimalleolar fracture of right lower leg, initial encounter for closed fracture Status: Acute Assessment and Plan: Mechanical ground level fall. Denies head strike and LOC. Per patient has been having difficulties with ambulation for several months. Only able to walk short distances using walker. reports at least 10 falls this month. Ankle xr showed right displaced bimalleolar fracture Ankle xr following reduction showed partial reduction of displaced bimalleolar fracture Analgesics PT/OT, weight bearing per ortho is non weight bearing Plan for patient to go to SNF. Care coordination following. Per patient has fallen at least 10 times this month. Ortho consulted s/p open reduction internal fixation right ankle bimalleolar fracture with fixation of medial and lateral fractures on 11/[address] Rosales outpatient follow up in 1-2 weeks POD #3: Open reduction internal fixation right ankle bimalleolar fracture with fixation of medial and lateral fractures (2) Hypertension: Code(s): I10 - Essential (primary) hypertension Status: Acute Assessment and Plan: Chronic, continue home medications - amlodipine 10 mg daily - lasix 20 mg daily - lisinopril 30 mg daily - metoprolol 50 mg daily - blood pressures remain stable, continue to monitor (3) Diabetes: Code(s): E11.9 - Type 2 diabetes mellitus without complications Status: Acute Assessment and Plan: - hypoglycemia protocol - POC blood glucose ACHS - home medication - lantus 10 units and SSI aspart - correct regimen ordered - lantus 10 units and mod SSI - A1C 9.9 on 11/16 Glucose 405 following surgery. Given 6 units novolog x1. Continue to monitor glucose. 11/20 blood sugars yesterday running 262-368. Lantus increased 22 units HS and mealtime Aspart increased to 6 units. early childhood special educator following, appreciate recommendations. 11/21 blood sugars yesterday running 236-330. Lantus increased 24 units HS. early childhood special educator following, appreciate recommendations. 11/22 blood sugars yesterday running 185-316. Lantus increased 26 units HS. early childhood special educator following, appreciate recommendations. (4) Depression: Code(s): F32.A - Depression, unspecified Status: Acute Assessment and Plan: Continue home medications Patient follows [facility] No mental health concerns at this time (5) Hypomagnesemia: Code(s): E83.42 - Hypomagnesemia Status: Acute Assessment and Plan: Magnesium today 1.7 Increase Magnesium Oxide 400 mg PO BID. Trend magnesium level. (6) Hypokalemia: Code(s): E87.6 - Hypokalemia Status: Acute Assessment and Plan: Potassium 4.0, improved. Trend level. (7) Elevated alkaline phosphatase level: Code(s): R74.8 - Abnormal levels of other serum enzymes Status: Acute Assessment and Plan: 146>144>149>150>142. Trend level. Subjective Date/time seen: 11/22/24 11:20 Interval history: Patient sitting up in chair. Patient reports pain in left hip that is an 4, constant, and aching. Patient denies chest pain, palpitations, leg/ankle pain, nausea, vomiting, headache, or dizziness. Awaiting insurance approval for swing bed rehab. Review of Systems Review of Systems: All systems reviewed & are unremarkable except as noted in HPI and below Exam Const: General: no acute distress and uncomfortable Resp: Effort & Inspection: normal respiratory effort Auscultation: clear to auscultation bilaterally Cardio: Rate: regular rate Rhythm: regular rhythm GI: GI Palp: Yes Soft to palpation Auscultation: normal bowel sounds Neuro: Speech: normal speech Extrem: General: no pedal edema Psych: Mental Status: mental status grossly normal Affect: normal affect Objective Data Vital Signs Vital Signs: Vital Signs - 24 hr 11/21/24 14:00 11/21/24 20:00 11/21/24 22:00 Temperature 97.8 F 97.2 F L Pulse Rate 90 82 Respiratory Rate 16 18 Blood Pressure 101/53 L 135/52 L Pulse Oximetry 93 97 Oxygen Delivery Room Air 11/22/24 06:00 11/22/24 08:00 11/22/24 08:26 Temperature 97.1 F L Pulse Rate 82 82 Respiratory Rate 18 Blood Pressure 132/70 Pulse Oximetry 98 Oxygen Delivery Room Air Intake/Output Intake/Output: Intake & Output 11/19/24 11/20/24 11/21/24 11/22/24 23:59 23:59 23:59 23:59 Intake Total 720 540 960 640 Output Total 500 1600 Balance 220 540 -640 640 Meds/Results Medications: Active Medications Generic Name Dose Route Start Last Admin Trade Name Freq PRN Reason Stop Dose Admin Acetaminophen 650 mg 11/14/24 15:51 11/19/24 05:17 Acetaminophen 325 Mg Tablet PO 650 mg Q4H PRN Administration Mild Pain (1-3) or Fever Hydrocodone Bitart/Acetaminophen 1 tab 11/14/24 15:51 11/22/24 08:31 Hydrocodone/Acetaminophen (*Crx) 5-325 Mg Tablet PO 1 tab Q4H PRN Administration pain 4-10 Albuterol 2 puff 11/14/24 15:53 Albuterol Sulfate (*Sp) Aerosol 1 Puff INHALATION Q4H PRN Shortness Of Breath Amlodipine Besylate 10 mg 11/15/24 09:00 11/22/24 08:27 Amlodipine Besylate 10 Mg Tablet PO 10 mg DAILY ROB Administration Aspirin 81 mg 11/15/24 09:00 11/22/24 08:27 Aspirin 81 Mg Chewable Tablet PO 81 mg DAILY ROB Administration Buspirone HCl 15 mg 11/17/24 17:00 11/22/24 08:25 Buspirone Hcl 5 Mg Tablet PO 15 mg BID ROB Administration Calcium Carbonate 500 mg 11/16/24 09:00 11/22/24 08:27 Calcium Carbonate (Tums) 500 Mg (200 Mg Elemental) PO 500 mg DAILY ROB Administration Cyclobenzaprine HCl 10 mg 11/14/24 15:53 11/21/24 20:44 Cyclobenzaprine Hcl 10 Mg Tablet PO 10 mg TID PRN Administration Muscle Spasm Dextrose 12.5 gm 11/14/24 16:40 Dextrose 50% 25 Gm/50 Ml Syringe IV PUSH PRN PRN Hypoglycemia Protocol Docusate Sodium 100 mg 11/14/24 17:00 11/22/24 08:27 Docusate Sodium 100 Mg Capsule PO 100 mg BID ROB Administration Fluoxetine HCl 40 mg 11/17/24 21:00 11/21/24 20:43 Fluoxetine Hcl 20 Mg Capsule PO 40 mg HS ROB Administration Fluoxetine HCl 20 mg 11/18/24 09:00 11/22/24 08:27 Fluoxetine Hcl 20 Mg Capsule PO 20 mg DAILY ROB Administration Furosemide 20 mg 11/15/24 09:00 11/22/24 08:25 Furosemide 20 Mg Tablet PO 20 mg DAILY ROB Administration Gabapentin 100 mg 11/17/24 17:00 11/22/24 08:26 Gabapentin 100 Mg Capsule PO 100 mg TID ROB Administration Glucagon 1 mg 11/14/24 16:40 Glucagon For Inj 1 Mg Vial IM PRN PRN Hypoglycemia Protocol Glucose 15 gm 11/14/24 16:40 Glucose Oral Gel 15 Gm Of Glucse In 37.5 Gm Tube PO PRN PRN Hypoglycemia Protocol Dextrose 1,000 mls @ 100 mls/hr 11/14/24 16:40 Dextrose 5% 1,000 Ml IVPB PRN PRN Hypoglycemia Protocol Ibuprofen 800 mg in 200 mls @ 400 mls/hr 11/15/24 11:06 11/17/24 08:00 Caldolor 800 Mg/200 Ml IVPB Infused Q6H PRN Infusion Breakthrough Pain Rated 1-3 or NPO Insulin Aspart 3 - 6 units 11/14/24 17:00 11/22/24 08:30 Insulin Aspart (*Bkc) 100 Units/Ml SUB-Q 4 units TIDWM ROB Administration Protocol Insulin Aspart 1 - 3 units 11/14/24 21:00 11/21/24 21:58 Insulin Aspart (*Bkc) 100 Units/Ml SUB-Q 1 units HS ROB Administration Protocol Insulin Aspart 6 units 11/20/24 12:00 11/22/24 08:29 Insulin Aspart (*Bkc) 100 Units/Ml SUB-Q 6 units TIDWM ROB Administration Insulin Glargine 26 units 11/22/24 18:00 Insulin Glargine (*Bkc) 100 Units/Ml SUB-Q QPM ROB Lidocaine 1 patch 11/19/24 15:10 11/22/24 08:27 Lidocaine 5% Patch TRANSDERM 1 patch DAILY ROB Administration Lisinopril 30 mg 11/15/24 09:00 11/22/24 08:26 Lisinopril 10 Mg Tablet PO 30 mg DAILY ROB Administration Magnesium Oxide 400 mg 11/22/24 17:00 Magnesium Oxide 400 Mg Tablet PO BID ROB Melatonin 10 mg 11/14/24 21:00 11/21/24 20:44 Melatonin 5 Mg Tablet PO 10 mg HS ROB Administration Methocarbamol 500 mg 11/15/24 10:09 11/22/24 01:43 Methocarbamol 500 Mg Tablet PO 500 mg Q8H PRN Administration muscle spasm Metoprolol Succinate 50 mg 11/15/24 09:00 11/22/24 08:26 Metoprolol Succinate Ext Rel 50 Mg Tabcr PO 50 mg DAILY ROB Administration Naloxone HCl 0.1 mg 11/15/24 11:06 Naloxone Hcl 0.4 Mg/Ml Vial IV PUSH Q2M PRN Opiate Reversal Nicotine 1 patch 11/15/24 20:15 11/22/24 08:28 Nicotine (*Pbkc) 14 Mg Patch TRANSDERM Not Given DAILY ROB Olanzapine 5 mg 11/17/24 21:00 11/21/24 20:44 Olanzapine 5 Mg Tablet PO 5 mg HS ROB Administration Ondansetron HCl 4 mg 11/15/24 11:06 11/15/24 17:21 Ondansetron Inj 4 Mg/2 Ml Vial IV PUSH 4 mg Q4H PRN Administration Nausea And Vomiting Pantoprazole Sodium 40 mg 11/17/24 21:00 11/22/24 08:26 Pantoprazole 40 Mg Tablet PO 40 mg Q12HR ROB Administration Polyethylene Glycol 17 gm 11/21/24 17:51 Polyethylene Glycol 3350 17 Gm Powd.Pack PO QAM PRN Constipation Rosuvastatin Calcium 20 mg 11/14/24 21:00 11/21/24 20:44 Rosuvastatin 20 Mg Tablet PO 20 mg HS ROB Administration Radiology Results: ITS Impressions Chest X-Ray 11/15/24 06:36 Impression: Suspected COPD with left basilar atelectasis or scarring. Intraoperative X-Ray 11/15/24 14:13 IMPRESSION: 1. Near-anatomic alignment post open reduction internal fixation of trimalleolar fracture of the right ankle. See procedure note for further detail. Labs Labs: Laboratory Results - last 24 hr 11/21/24 11/21/24 11/21/24 12:00 12:22 16:51 WBC RBC Hgb Hct MCV MCH MCHC RDW Plt Count MPV Immature Gran % (Auto) Neut % (Auto) Lymph % (Auto) [place] % (Auto) Eos % (Auto) Baso % (Auto) Lymph # (Auto) [place] # (Auto) Eos # (Auto) Baso # (Auto) Abs Immat Gran (auto) Absolute Neuts (auto) Absolute Nucleated RBC Nucleated RBC % Sodium Potassium Chloride Carbon Dioxide Anion Gap BUN Creatinine Estim Creat Clear Calc Estimated GFR Glucose POC Capillary Glucose 316 H 185 H Calcium Magnesium Total Bilirubin AST ALT Alkaline Phosphatase Total Protein Albumin Urine Color Yellow Urine Appearance Clear Urine pH 7.5 Ur Specific [place] 1.011 Urine Protein Negative Urine Glucose (UA) 3+ H Urine Ketones Negative Ur Blood (Man) Negative Urine Nitrate Negative Urine Bilirubin Negative Urine Urobilinogen 1.0 Leukocyte Esterase Rfl Negative 11/21/24 11/22/24 11/22/24 20:52 06:36 07:43 WBC 13.7 H RBC 4.40 Hgb 11.0 L Hct 36.4 L MCV 82.7 MCH 25.0 L MCHC 30.2 L RDW 16.5 H Plt Count 418 H MPV 10.8 H Immature Gran % (Auto) 1.0 H Neut % (Auto) 54.0 Lymph % (Auto) 27.9 [place] % (Auto) 10.5 H Eos % (Auto) 5.6 H Baso % (Auto) 1.0 Lymph # (Auto) 3.82 H [place] # (Auto) 1.4 H Eos # (Auto) 0.8 H Baso # (Auto) 0.1 Abs Immat Gran (auto) 0.13 H Absolute Neuts (auto) 7.4 H Absolute Nucleated RBC 0.000 Nucleated RBC % 0.0 Sodium 138 Potassium 4.0 Chloride 99 Carbon Dioxide 28 Anion Gap 11 BUN 13 Creatinine 0.97 Estim Creat Clear Calc 51 Estimated GFR 58 L Glucose 255 H POC Capillary Glucose 247 H 265 H Calcium 9.2 Magnesium 1.7 Total Bilirubin 0.4 AST 15 ALT 12 Alkaline Phosphatase 142 H Total Protein 7.0 Albumin 3.7 Urine Color Urine Appearance Urine pH Ur Specific [place] Urine Protein Urine Glucose (UA) Urine Ketones Ur Blood (Man) Urine Nitrate Urine Bilirubin Urine Urobilinogen Leukocyte Esterase Rfl Quality VTE Prophylaxis VTE prophylaxis: mechanical ordered
[2024-11-22 11:57] LABS: Glucose Point of Care 264 mg/dl (65-105)
[2024-11-22 14:00] VITALS: BP 130/62; PULSE 90; RESP 16; TEMP 36.9; O2SAT 94
[2024-11-22] MEDS: INSULIN GLARGINE (*BKC) 100 UNITS/ML 26 UNITS SUB-Q (17:18)
[2024-11-22 17:24] LABS: Glucose Point of Care 240 mg/dl (65-105)
[2024-11-22] MEDS: ROSUVASTATIN 20 MG TABLET PO (21:18)
[2024-11-22] MEDS: FLUoxetine HCL 20 MG CAPSULE 40 MG PO (21:18)
[2024-11-22] MEDS: OLANZapine 5 MG TABLET PO (21:18)
[2024-11-22] MEDS: CYCLOBENZAPRINE HCL 10 MG TABLET PO (21:19)
[2024-11-22] MEDS: MELATONIN 5 MG TABLET 10 MG PO (21:59)
[2024-11-22 22:00] VITALS: BP 144/69; PULSE 96; RESP 18; TEMP 36.2; O2SAT 95
[2024-11-23] MEDS: HYDROcodone/acetaminophen (*CRX) 5-325 MG TABLET 1 TAB PO ×3 (02:49→20:32)
[2024-11-23] MEDS: methocarbamoL 500 MG TABLET PO (02:52)
[2024-11-23 06:00] VITALS: BP 138/71; PULSE 78; RESP 18; TEMP 36.3; O2SAT 97
[2024-11-23 06:28] LABS: Basophils Absolute Auto 0.1 K/mm3 (0.0-0.1); Basophils Percent Auto 0.8 % (0.2-1.2); Eosinophils Absolute Auto 1.1 K/mm3 (0-0.3); Eosinophils Percent Auto 7.3 % (0-4.4); Hematocrit 35.9 % (37.0-47.0); Hemoglobin 10.8 g/dL (12.0-15.0); Immature Granulocyte Absolute 0.16 K/mm3 (0.00-0.031); Immature Granulocyte Percent A 1.1 % (0-0.5); Lymphocytes Absolute Auto 4.21 K/mm3 (0.9-3.2); Mean Corpuscular HGB Conc 30.1 g/dl (32-36); Mean Corpuscular Hemoglobin 25.1 pg (26-34); Mean Corpuscular Volume 83.5 fl (80-100); Mean Platelet Volume 11.3 fl (7.4-10.4); Monocytes Absolute Auto 1.5 K/mm3 (0.1-0.6); Monocytes Percent Auto 10.2 % (2.6-8.5); Neutrophils Absolute Auto 7.9 K/mm3 (1.3-6.7); Neutrophils Percent Auto 52.6 % (45.5-73.1); Platelet Count Result 428 k/mm3 (150-375); Red Cell Distribution Width 16.8 % (11.5-14.5)
[2024-11-23 06:42] LABS: Alanine Aminotransferase 11 U/L (6-35); Albumin Level 3.6 g/dL (3.5-5.1); Alkaline Phosphatase 130 U/L (38-126); Anion Gap 8 mmol/L (4-12); Aspartate Amino Transferase 26 U/L (14-36); Bilirubin,Total 0.4 mg/dL (0.2-1.3); Blood Urea Nitrogen 18 mg/dL (7-17); Calcium 8.9 mg/dL (8.4-10.2); Carbon Dioxide 29 mmol/L (22-30); Chloride 99 mmol/L (98-107); Estimated CRCL calculation 46 ml/min; Estimated Glomerular Filt Rate 52; Glucose 248 mg/dL (65-110); Magnesium 1.8 mg/dL (1.6-2.3); Potassium 3.9 mmol/L (3.4-5.0); Sodium 136 mmol/L (137-145); Total Protein 6.7 g/dL (6.3-8.2)
[2024-11-23 07:48] LABS: Glucose Point of Care 223 mg/dl (65-105)
[2024-11-23] MEDS: LIDOCAINE 5% PATCH 1 PATCH TRANSDERM (08:51)
[2024-11-23] MEDS: CALCIUM CARBONATE (TUMS) 500 MG (200 MG ELEMENTAL) PO (08:52)
[2024-11-23] MEDS: GABAPENTIN 100 MG CAPSULE PO ×3 (08:53→16:45)
[2024-11-23] MEDS: busPIRone HCL 5 MG TABLET 15 MG PO ×2 (08:53→16:45)
[2024-11-23] MEDS: lisinopriL 10 MG TABLET 30 MG PO (08:54)
[2024-11-23] MEDS: PANTOPRAZOLE 40 MG TABLET PO ×2 (08:54→20:33)
[2024-11-23] MEDS: FUROSEMIDE 20 MG TABLET PO (08:54)
[2024-11-23] MEDS: amLODIPine BESYLATE 10 MG TABLET PO (08:54)
[2024-11-23 08:55] VITALS: PULSE 80
[2024-11-23] MEDS: INSULIN ASPART (*BKC) 100 UNITS/ML SUB-Q ×4 (08:55→20:34)
[2024-11-23] MEDS: DOCUSATE SODIUM 100 MG CAPSULE PO ×2 (08:55→18:26)
[2024-11-23] MEDS: METOPROLOL SUCCINATE EXT REL 50 MG TABCR PO (08:55)
[2024-11-23] MEDS: FLUoxetine HCL 20 MG CAPSULE PO (08:55)
[2024-11-23] MEDS: MAGNESIUM OXIDE 400 MG TABLET PO ×2 (08:55→16:45)
[2024-11-23] MEDS: ASPIRIN 81 MG CHEWABLE TABLET PO (08:55)
[2024-11-23] MEDS: INSULIN ASPART (*BKC) 100 UNITS/ML 6 UNITS SUB-Q ×3 (08:56→16:43)
[2024-11-23 11:51] LABS: Glucose Point of Care 220 mg/dl (65-105)
--- NOTE | 2024-11-23 12:14 | PM.IMPN ---
Progress Note: A&P Assessment and Plan (1) Displaced bimalleolar fracture of right ankle: Qualifiers: Encounter type: initial encounter Fracture type: closed Qualified Code(s): S82.841A - Displaced bimalleolar fracture of right lower leg, initial encounter for closed fracture Code(s): S82.841A - Displaced bimalleolar fracture of right lower leg, initial encounter for closed fracture Status: Acute Assessment and Plan: Mechanical ground level fall. Denies head strike and LOC. Per patient has been having difficulties with ambulation for several months. Only able to walk short distances using walker. reports at least 10 falls this month. Ankle xr showed right displaced bimalleolar fracture Ankle xr following reduction showed partial reduction of displaced bimalleolar fracture Analgesics PT/OT, weight bearing per ortho is non weight bearing Plan for patient to go to SNF. Care coordination following. Per patient has fallen at least 10 times this month. Ortho consulted s/p open reduction internal fixation right ankle bimalleolar fracture with fixation of medial and lateral fractures on 11/[address] Rosales outpatient follow up in 1-2 weeks POD #3: Open reduction internal fixation right ankle bimalleolar fracture with fixation of medial and lateral fractures (2) Hypertension: Code(s): I10 - Essential (primary) hypertension Status: Acute Assessment and Plan: Chronic, continue home medications - amlodipine 10 mg daily - lasix 20 mg daily - lisinopril 30 mg daily - metoprolol 50 mg daily - blood pressures remain stable, continue to monitor (3) Diabetes: Code(s): E11.9 - Type 2 diabetes mellitus without complications Status: Acute Assessment and Plan: - hypoglycemia protocol - POC blood glucose ACHS - home medication - lantus 10 units and SSI aspart - correct regimen ordered - lantus 10 units and mod SSI - A1C 9.9 on 11/16 Glucose 405 following surgery. Given 6 units novolog x1. Continue to monitor glucose. 11/20 blood sugars yesterday running 262-368. Lantus increased 22 units HS and mealtime Aspart increased to 6 units. accounts receivable representative following, appreciate recommendations. 11/21 blood sugars yesterday running 236-330. Lantus increased 24 units HS. accounts receivable representative following, appreciate recommendations. 11/22 blood sugars yesterday running 185-316. Lantus increased 26 units HS. accounts receivable representative following, appreciate recommendations. 11/23 blood sugars yesterday running 220-223. Lantus increased 28 units HS. accounts receivable representative following, appreciate recommendations. (4) Depression: Code(s): F32.A - Depression, unspecified Status: Acute Assessment and Plan: Continue home medications Patient follows [facility] No mental health concerns at this time (5) Hypomagnesemia: Code(s): E83.42 - Hypomagnesemia Status: Acute Assessment and Plan: Magnesium today 1.8. Magnesium Oxide 400 mg PO BID. Trend magnesium level. (6) Hypokalemia: Code(s): E87.6 - Hypokalemia Status: Acute Assessment and Plan: Potassium 3.9, improved. Trend level. (7) Elevated alkaline phosphatase level: Code(s): R74.8 - Abnormal levels of other serum enzymes Status: Acute Assessment and Plan: 146>144>149>150>142>141. Trend level. Subjective Date/time seen: 11/23/24 12:14 Interval history: Patient sitting up in chair. Patient reports pain in left hip that is an 6, constant, and aching. Patient denies chest pain, palpitations, leg/ankle pain, nausea, vomiting, headache, or dizziness. Awaiting insurance approval for swing bed rehab. Review of Systems Review of Systems: All systems reviewed & are unremarkable except as noted in HPI and below Exam Const: General: no acute distress and uncomfortable Resp: Effort & Inspection: normal respiratory effort Auscultation: clear to auscultation bilaterally Cardio: Rate: regular rate Rhythm: regular rhythm GI: GI Palp: Yes Soft to palpation Auscultation: normal bowel sounds Neuro: Speech: normal speech Extrem: General: no pedal edema Psych: Mental Status: mental status grossly normal Affect: normal affect Objective Data Vital Signs Vital Signs: Vital Signs - 24 hr 11/22/24 14:00 11/22/24 20:00 11/22/24 22:00 Temperature 98.4 F 97.2 F L Pulse Rate 90 96 Respiratory Rate 16 18 Blood Pressure 130/62 144/69 H Pulse Oximetry 94 95 Oxygen Delivery Room Air 11/23/24 06:00 11/23/24 08:00 11/23/24 08:55 Temperature 97.3 F L Pulse Rate 78 80 Respiratory Rate 18 Blood Pressure 138/71 Pulse Oximetry 97 Oxygen Delivery Room Air Intake/Output Intake/Output: Intake & Output 11/20/24 11/21/24 11/22/24 11/23/24 23:59 23:59 23:59 23:59 Intake Total 343 943 6940 670 Output Total 1600 Balance 540 -640 1060 670 Meds/Results Medications: Active Medications Generic Name Dose Route Start Last Admin Trade Name Freq PRN Reason Stop Dose Admin Acetaminophen 650 mg 11/14/24 15:51 11/19/24 05:17 Acetaminophen 325 Mg Tablet PO 650 mg Q4H PRN Administration Mild Pain (1-3) or Fever Hydrocodone Bitart/Acetaminophen 1 tab 11/14/24 15:51 11/23/24 02:49 Hydrocodone/Acetaminophen (*Crx) 5-325 Mg Tablet PO 1 tab Q4H PRN Administration pain 4-10 Albuterol 2 puff 11/14/24 15:53 Albuterol Sulfate (*Sp) Aerosol 1 Puff INHALATION Q4H PRN Shortness Of Breath Amlodipine Besylate 10 mg 11/15/24 09:00 11/23/24 08:54 Amlodipine Besylate 10 Mg Tablet PO 10 mg DAILY ROB Administration Aspirin 81 mg 11/15/24 09:00 11/23/24 08:55 Aspirin 81 Mg Chewable Tablet PO 81 mg DAILY ROB Administration Buspirone HCl 15 mg 11/17/24 17:00 11/23/24 08:53 Buspirone Hcl 5 Mg Tablet PO 15 mg BID ROB Administration Calcium Carbonate 500 mg 11/16/24 09:00 11/23/24 08:52 Calcium Carbonate (Tums) 500 Mg (200 Mg Elemental) PO 500 mg DAILY ROB Administration Cyclobenzaprine HCl 10 mg 11/14/24 15:53 11/22/24 21:19 Cyclobenzaprine Hcl 10 Mg Tablet PO 10 mg TID PRN Administration Muscle Spasm Dextrose 12.5 gm 11/14/24 16:40 Dextrose 50% 25 Gm/50 Ml Syringe IV PUSH PRN PRN Hypoglycemia Protocol Docusate Sodium 100 mg 11/14/24 17:00 11/23/24 08:55 Docusate Sodium 100 Mg Capsule PO 100 mg BID ROB Administration Fluoxetine HCl 40 mg 11/17/24 21:00 11/22/24 21:18 Fluoxetine Hcl 20 Mg Capsule PO 40 mg HS ROB Administration Fluoxetine HCl 20 mg 11/18/24 09:00 11/23/24 08:55 Fluoxetine Hcl 20 Mg Capsule PO 20 mg DAILY ROB Administration Furosemide 20 mg 11/15/24 09:00 11/23/24 08:54 Furosemide 20 Mg Tablet PO 20 mg DAILY ROB Administration Gabapentin 100 mg 11/17/24 17:00 11/23/24 08:53 Gabapentin 100 Mg Capsule PO 100 mg TID ROB Administration Glucagon 1 mg 11/14/24 16:40 Glucagon For Inj 1 Mg Vial IM PRN PRN Hypoglycemia Protocol Glucose 15 gm 11/14/24 16:40 Glucose Oral Gel 15 Gm Of Glucse In 37.5 Gm Tube PO PRN PRN Hypoglycemia Protocol Dextrose 1,000 mls @ 100 mls/hr 11/14/24 16:40 Dextrose 5% 1,000 Ml IVPB PRN PRN Hypoglycemia Protocol Ibuprofen 800 mg in 200 mls @ 400 mls/hr 11/15/24 11:06 11/17/24 08:00 Caldolor 800 Mg/200 Ml IVPB Infused Q6H PRN Infusion Breakthrough Pain Rated 1-3 or NPO Insulin Aspart 3 - 6 units 11/14/24 17:00 11/23/24 08:55 Insulin Aspart (*Bkc) 100 Units/Ml SUB-Q 3 units TIDWM ROB Administration Protocol Insulin Aspart 1 - 3 units 11/14/24 21:00 11/22/24 22:00 Insulin Aspart (*Bkc) 100 Units/Ml SUB-Q Not Given HS ROB Protocol Insulin Aspart 6 units 11/20/24 12:00 11/23/24 08:56 Insulin Aspart (*Bkc) 100 Units/Ml SUB-Q 6 units TIDWM ROB Administration Insulin Glargine 26 units 11/22/24 18:00 11/22/24 17:18 Insulin Glargine (*Bkc) 100 Units/Ml SUB-Q 26 units QPM ROB Administration Lidocaine 1 patch 11/19/24 15:10 11/23/24 08:51 Lidocaine 5% Patch TRANSDERM 1 patch DAILY ROB Administration Lisinopril 30 mg 11/15/24 09:00 11/23/24 08:54 Lisinopril 10 Mg Tablet PO 30 mg DAILY ROB Administration Magnesium Oxide 400 mg 11/22/24 17:00 11/23/24 08:55 Magnesium Oxide 400 Mg Tablet PO 400 mg BID ROB Administration Melatonin 10 mg 11/14/24 21:00 11/22/24 21:59 Melatonin 5 Mg Tablet PO 10 mg HS ROB Administration Methocarbamol 500 mg 11/15/24 10:09 11/23/24 02:52 Methocarbamol 500 Mg Tablet PO 500 mg Q8H PRN Administration muscle spasm Metoprolol Succinate 50 mg 11/15/24 09:00 11/23/24 08:55 Metoprolol Succinate Ext Rel 50 Mg Tabcr PO 50 mg DAILY ROB Administration Naloxone HCl 0.1 mg 11/15/24 11:06 Naloxone Hcl 0.4 Mg/Ml Vial IV PUSH Q2M PRN Opiate Reversal Nicotine 1 patch 11/15/24 20:15 11/22/24 08:28 Nicotine (*Pbkc) 14 Mg Patch TRANSDERM Not Given DAILY ROB Olanzapine 5 mg 11/17/24 21:00 11/22/24 21:18 Olanzapine 5 Mg Tablet PO 5 mg HS ROB Administration Ondansetron HCl 4 mg 11/15/24 11:06 11/15/24 17:21 Ondansetron Inj 4 Mg/2 Ml Vial IV PUSH 4 mg Q4H PRN Administration Nausea And Vomiting Pantoprazole Sodium 40 mg 11/17/24 21:00 11/23/24 08:54 Pantoprazole 40 Mg Tablet PO 40 mg Q12HR ROB Administration Polyethylene Glycol 17 gm 11/21/24 17:51 Polyethylene Glycol 3350 17 Gm Powd.Pack PO QAM PRN Constipation Rosuvastatin Calcium 20 mg 11/14/24 21:00 11/22/24 21:18 Rosuvastatin 20 Mg Tablet PO 20 mg HS ROB Administration Radiology Results: ITS Impressions Chest X-Ray 11/15/24 06:36 Impression: Suspected COPD with left basilar atelectasis or scarring. Intraoperative X-Ray 11/15/24 14:13 IMPRESSION: 1. Near-anatomic alignment post open reduction internal fixation of trimalleolar fracture of the right ankle. See procedure note for further detail. Labs Labs: Laboratory Results - last 24 hr 11/22/24 11/23/24 11/23/24 16:44 05:51 07:44 WBC 15.0 H RBC 4.30 Hgb 10.8 L Hct 35.9 L MCV 83.5 MCH 25.1 L MCHC 30.1 L RDW 16.8 H Plt Count 428 H MPV 11.3 H Immature Gran % (Auto) 1.1 H Neut % (Auto) 52.6 Lymph % (Auto) 28.0 [place] % (Auto) 10.2 H Eos % (Auto) 7.3 H Baso % (Auto) 0.8 Lymph # (Auto) 4.21 H [place] # (Auto) 1.5 H Eos # (Auto) 1.1 H Baso # (Auto) 0.1 Abs Immat Gran (auto) 0.16 H Absolute Neuts (auto) 7.9 H Absolute Nucleated RBC 0.000 Nucleated RBC % 0.0 Sodium 136 L Potassium 3.9 Chloride 99 Carbon Dioxide 29 Anion Gap 8 BUN 18 H Creatinine 1.07 H Estim Creat Clear Calc 46 Estimated GFR 52 L Glucose 248 H POC Capillary Glucose 240 H 223 H Calcium 8.9 Magnesium 1.8 Total Bilirubin 0.4 AST 26 ALT 11 Alkaline Phosphatase 130 H Total Protein 6.7 Albumin 3.6 11/23/24 11:47 WBC RBC Hgb Hct MCV MCH MCHC RDW Plt Count MPV Immature Gran % (Auto) Neut % (Auto) Lymph % (Auto) [place] % (Auto) Eos % (Auto) Baso % (Auto) Lymph # (Auto) [place] # (Auto) Eos # (Auto) Baso # (Auto) Abs Immat Gran (auto) Absolute Neuts (auto) Absolute Nucleated RBC Nucleated RBC % Sodium Potassium Chloride Carbon Dioxide Anion Gap BUN Creatinine Estim Creat Clear Calc Estimated GFR Glucose POC Capillary Glucose 220 H Calcium Magnesium Total Bilirubin AST ALT Alkaline Phosphatase Total Protein Albumin Quality VTE Prophylaxis VTE prophylaxis: mechanical ordered
[2024-11-23 13:57] VITALS: BP 106/73; PULSE 89; RESP 16; TEMP 36.7; O2SAT 96
[2024-11-23 16:28] LABS: Glucose Point of Care 250 mg/dl (65-105)
--- NOTE | 2024-11-23 16:42 | P.PNOP_ITS ---
Progress Note: A&P Assessment and Plan (1) Displaced bimalleolar fracture of right ankle: Qualifiers: Encounter type: initial encounter Fracture type: closed Qualified Code(s): S82.841A - Displaced bimalleolar fracture of right lower leg, initial encounter for closed fracture Code(s): S82.841A - Displaced bimalleolar fracture of right lower leg, initial encounter for closed fracture Status: Acute Assessment and Plan: POD #8: Open reduction internal fixation right ankle bimalleolar fracture with fixation of medial and lateral fractures. Pain control. PT/OT. NWB RLE. High Fall Risk Precautions. Aspirin 81mg PO daily. Ice. Elevate. Dispo: TERESA given recurrent falls recently. Follow up outpatient. Time Spent With Patient Time: patient awaiting insurance authorization for placement. Now 8 days status post ORIF right ankle. Cast change indicated. Right short-leg cast removed. Incisions healing well. No signs of infection. Sutures removed. New short-leg total contact cast applied as patient has peripheral neuropathy, decreased sensation. Tolerated without incident. Follow-up in 3 weeks in the Orthopedic out patient clinic. Subjective Subjective Date/Time Seen: 11/23/24 16:42 Post Op day: 8 Principal diagnosis: right ankle fracture Interval history: POD #8: Open reduction internal fixation right ankle bimalleolar fracture with fixation of medial and lateral fractures. Patient denies pain. No new concerns. Up in chair.\ awaiting insurance approval for placement. Exam Const: General: comfortable and no acute distress Resp: Effort & Inspection: normal respiratory effort Cardio: Rate: regular rate Rhythm: regular rhythm Neuro: Sensory Exam: normal sensation Extrem: Right lower extremity: knee Details: normal to inspection; no tenderness and no swelling, lower leg (Cast c/d/i ), ankle (cast c/d/i) Details: other ( Cast removed right ankle. Incision medial and lateral clean dry and intact. Sutures removed. Minimal swelling. No erythema. Good sensation to touch in the toes, good capillary refill. Negative Homans) and foot (cast c/d/i ) Details: toes with normal ROM Objective Data Vital Signs Vital Signs: Vital Signs - 24 hr 11/22/24 20:00 11/22/24 22:00 11/23/24 06:00 Temperature 97.2 F L 97.3 F L Pulse Rate 96 78 Respiratory Rate 18 18 Blood Pressure 144/69 H 138/71 Pulse Oximetry 95 97 Oxygen Delivery Room Air 11/23/24 08:00 11/23/24 08:55 11/23/24 13:57 Temperature 98.1 F Pulse Rate 80 89 Respiratory Rate 16 Blood Pressure 106/73 Pulse Oximetry 96 Oxygen Delivery Room Air Intake/Output Intake/Output: Intake & Output 11/20/24 11/21/24 11/22/24 11/23/24 23:59 23:59 23:59 23:59 Intake Total 359 044 7342 850 Output Total 1600 Balance 540 -640 1060 850 Meds/Results Medications: Active Medications Generic Name Dose Route Start Last Admin Trade Name Freq PRN Reason Stop Dose Admin Acetaminophen 650 mg 11/14/24 15:51 11/19/24 05:17 Acetaminophen 325 Mg Tablet PO 650 mg Q4H PRN Administration Mild Pain (1-3) or Fever Hydrocodone Bitart/Acetaminophen 1 tab 11/14/24 15:51 11/23/24 12:48 Hydrocodone/Acetaminophen (*Crx) 5-325 Mg Tablet PO 1 tab Q4H PRN Administration pain 4-10 Albuterol 2 puff 11/14/24 15:53 Albuterol Sulfate (*Sp) Aerosol 1 Puff INHALATION Q4H PRN Shortness Of Breath Amlodipine Besylate 10 mg 11/15/24 09:00 11/23/24 08:54 Amlodipine Besylate 10 Mg Tablet PO 10 mg DAILY ROB Administration Aspirin 81 mg 11/15/24 09:00 11/23/24 08:55 Aspirin 81 Mg Chewable Tablet PO 81 mg DAILY ROB Administration Buspirone HCl 15 mg 11/17/24 17:00 11/23/24 08:53 Buspirone Hcl 5 Mg Tablet PO 15 mg BID ROB Administration Calcium Carbonate 500 mg 11/16/24 09:00 11/23/24 08:52 Calcium Carbonate (Tums) 500 Mg (200 Mg Elemental) PO 500 mg DAILY ROB Administration Cyclobenzaprine HCl 10 mg 11/14/24 15:53 11/22/24 21:19 Cyclobenzaprine Hcl 10 Mg Tablet PO 10 mg TID PRN Administration Muscle Spasm Dextrose 12.5 gm 11/14/24 16:40 Dextrose 50% 25 Gm/50 Ml Syringe IV PUSH PRN PRN Hypoglycemia Protocol Docusate Sodium 100 mg 11/14/24 17:00 11/23/24 08:55 Docusate Sodium 100 Mg Capsule PO 100 mg BID ROB Administration Fluoxetine HCl 40 mg 11/17/24 21:00 11/22/24 21:18 Fluoxetine Hcl 20 Mg Capsule PO 40 mg HS ROB Administration Fluoxetine HCl 20 mg 11/18/24 09:00 11/23/24 08:55 Fluoxetine Hcl 20 Mg Capsule PO 20 mg DAILY ROB Administration Furosemide 20 mg 11/15/24 09:00 11/23/24 08:54 Furosemide 20 Mg Tablet PO 20 mg DAILY ROB Administration Gabapentin 100 mg 11/17/24 17:00 11/23/24 12:52 Gabapentin 100 Mg Capsule PO 100 mg TID ROB Administration Glucagon 1 mg 11/14/24 16:40 Glucagon For Inj 1 Mg Vial IM PRN PRN Hypoglycemia Protocol Glucose 15 gm 11/14/24 16:40 Glucose Oral Gel 15 Gm Of Glucse In 37.5 Gm Tube PO PRN PRN Hypoglycemia Protocol Dextrose 1,000 mls @ 100 mls/hr 11/14/24 16:40 Dextrose 5% 1,000 Ml IVPB PRN PRN Hypoglycemia Protocol Ibuprofen 800 mg in 200 mls @ 400 mls/hr 11/15/24 11:06 11/17/24 08:00 Caldolor 800 Mg/200 Ml IVPB Infused Q6H PRN Infusion Breakthrough Pain Rated 1-3 or NPO Insulin Aspart 3 - 6 units 11/14/24 17:00 11/23/24 12:47 Insulin Aspart (*Bkc) 100 Units/Ml SUB-Q 3 units TIDWM ROB Administration Protocol Insulin Aspart 1 - 3 units 11/14/24 21:00 11/22/24 22:00 Insulin Aspart (*Bkc) 100 Units/Ml SUB-Q Not Given HS [facility] Protocol Insulin Aspart 6 units 11/20/24 12:00 11/23/24 12:45 Insulin Aspart (*Bkc) 100 Units/Ml SUB-Q 6 units TIDWM ROB Administration Insulin Glargine 28 units 11/23/24 18:00 Insulin Glargine (*Bkc) 100 Units/Ml SUB-Q QPM ROB Lidocaine 1 patch 11/19/24 15:10 11/23/24 08:51 Lidocaine 5% Patch TRANSDERM 1 patch DAILY ROB Administration Lisinopril 30 mg 11/15/24 09:00 11/23/24 08:54 Lisinopril 10 Mg Tablet PO 30 mg DAILY ROB Administration Magnesium Oxide 400 mg 11/22/24 17:00 11/23/24 08:55 Magnesium Oxide 400 Mg Tablet PO 400 mg BID ROB Administration Melatonin 10 mg 11/14/24 21:00 11/22/24 21:59 Melatonin 5 Mg Tablet PO 10 mg HS ROB Administration Methocarbamol 500 mg 11/15/24 10:09 11/23/24 02:52 Methocarbamol 500 Mg Tablet PO 500 mg Q8H PRN Administration muscle spasm Metoprolol Succinate 50 mg 11/15/24 09:00 11/23/24 08:55 Metoprolol Succinate Ext Rel 50 Mg Tabcr PO 50 mg DAILY ROB Administration Naloxone HCl 0.1 mg 11/15/24 11:06 Naloxone Hcl 0.4 Mg/Ml Vial IV PUSH Q2M PRN Opiate Reversal Nicotine 1 patch 11/15/24 20:15 11/22/24 08:28 Nicotine (*Pbkc) 14 Mg Patch TRANSDERM Not Given DAILY ROB Olanzapine 5 mg 11/17/24 21:00 11/22/24 21:18 Olanzapine 5 Mg Tablet PO 5 mg HS ROB Administration Ondansetron HCl 4 mg 11/15/24 11:06 11/15/24 17:21 Ondansetron Inj 4 Mg/2 Ml Vial IV PUSH 4 mg Q4H PRN Administration Nausea And Vomiting Pantoprazole Sodium 40 mg 11/17/24 21:00 11/23/24 08:54 Pantoprazole 40 Mg Tablet PO 40 mg Q12HR ROB Administration Polyethylene Glycol 17 gm 11/21/24 17:51 Polyethylene Glycol 3350 17 Gm Powd.Pack PO QAM PRN Constipation Rosuvastatin Calcium 20 mg 11/14/24 21:00 11/22/24 21:18 Rosuvastatin 20 Mg Tablet PO 20 mg HS ROB Administration Radiology Results: ITS Impressions Chest X-Ray 11/15/24 06:36 Impression: Suspected COPD with left basilar atelectasis or scarring. Intraoperative X-Ray 11/15/24 14:13 IMPRESSION: 1. Near-anatomic alignment post open reduction internal fixation of trimalleolar fracture of the right ankle. See procedure note for further detail. Labs Labs: Laboratory Results - last 24 hr 11/22/24 11/23/24 11/23/24 16:44 05:51 07:44 WBC 15.0 H RBC 4.30 Hgb 10.8 L Hct 35.9 L MCV 83.5 MCH 25.1 L MCHC 30.1 L RDW 16.8 H Plt Count 428 H MPV 11.3 H Immature Gran % (Auto) 1.1 H Neut % (Auto) 52.6 Lymph % (Auto) 28.0 [place] % (Auto) 10.2 H Eos % (Auto) 7.3 H Baso % (Auto) 0.8 Lymph # (Auto) 4.21 H [place] # (Auto) 1.5 H Eos # (Auto) 1.1 H Baso # (Auto) 0.1 Abs Immat Gran (auto) 0.16 H Absolute Neuts (auto) 7.9 H Absolute Nucleated RBC 0.000 Nucleated RBC % 0.0 Sodium 136 L Potassium 3.9 Chloride 99 Carbon Dioxide 29 Anion Gap 8 BUN 18 H Creatinine 1.07 H Estim Creat Clear Calc 46 Estimated GFR 52 L Glucose 248 H POC Capillary Glucose 240 H 223 H Calcium 8.9 Magnesium 1.8 Total Bilirubin 0.4 AST 26 ALT 11 Alkaline Phosphatase 130 H Total Protein 6.7 Albumin 3.6 11/23/24 11/23/24 11:47 16:22 WBC RBC Hgb Hct MCV MCH MCHC RDW Plt Count MPV Immature Gran % (Auto) Neut % (Auto) Lymph % (Auto) [place] % (Auto) Eos % (Auto) Baso % (Auto) Lymph # (Auto) [place] # (Auto) Eos # (Auto) Baso # (Auto) Abs Immat Gran (auto) Absolute Neuts (auto) Absolute Nucleated RBC Nucleated RBC % Sodium Potassium Chloride Carbon Dioxide Anion Gap BUN Creatinine Estim Creat Clear Calc Estimated GFR Glucose POC Capillary Glucose 220 H 250 H Calcium Magnesium Total Bilirubin AST ALT Alkaline Phosphatase Total Protein Albumin Fracture/Casting/Strapping Pre Procedure Consent was obtained, Procedures/risks were explained, Questions were answered, Correct patient identified and Correct side and site confirmed Episode of Care Return Visit Location: Right thigh Casting Cast: Total Contact Leg Cast Modification and Status: Diabetic Supplies and DME Casting Supplies: Cast supls;shrt leg cast,adult,fibr Material: Fiberglass (4) Application Exam of Affected Area: Color: Normal, Temp: Normal, Pulse: Normal, Blanching: Normal, Capillary Refill: Normal and Sensory Exam: Normal Swelling: Yes ( mild) and Tenderness: Yes ( lateral malleolus) Skin Apperance: Clean and Dry and Intact Care: Alcohol Wipes and Sutures removed Patient Tolerated Procedure Well: Yes Post Procedure Patient tolerated the procedure well?: Tolerated procedure well
[2024-11-23] MEDS: INSULIN GLARGINE (*BKC) 100 UNITS/ML 28 UNITS SUB-Q (16:44)
[2024-11-23 20:00] VITALS: PULSE 93; RESP 20; O2SAT 96
[2024-11-23] MEDS: FLUoxetine HCL 20 MG CAPSULE 40 MG PO (20:31)
[2024-11-23] MEDS: OLANZapine 5 MG TABLET PO (20:31)
[2024-11-23] MEDS: ROSUVASTATIN 20 MG TABLET PO (20:33)
[2024-11-23] MEDS: CYCLOBENZAPRINE HCL 10 MG TABLET PO (20:33)
[2024-11-23] MEDS: MELATONIN 5 MG TABLET 10 MG PO (20:40)
[2024-11-23 21:05] LABS: Glucose Point of Care 276 mg/dl (65-105)
[2024-11-23 22:00] VITALS: BP 131/60; PULSE 93; RESP 18; TEMP 36.3; O2SAT 96
[2024-11-24] MEDS: methocarbamoL 500 MG TABLET PO (02:40)
[2024-11-24] MEDS: HYDROcodone/acetaminophen (*CRX) 5-325 MG TABLET 1 TAB PO ×2 (04:31→08:52)
[2024-11-24 06:00] VITALS: BP 134/64; PULSE 88; RESP 18; TEMP 36.6; O2SAT 98
[2024-11-24 08:00] VITALS: O2SAT 99
[2024-11-24 08:01] LABS: Glucose Point of Care 185 mg/dl (65-105)
[2024-11-24 08:19] LABS: Basophils Absolute Auto 0.1 K/mm3 (0.0-0.1); Basophils Percent Auto 0.9 % (0.2-1.2); Eosinophils Absolute Auto 0.7 K/mm3 (0-0.3); Eosinophils Percent Auto 5.6 % (0-4.4); Hematocrit 36.9 % (37.0-47.0); Hemoglobin 10.9 g/dL (12.0-15.0); Immature Granulocyte Percent A 0.8 % (0-0.5); Lymphocytes Absolute Auto 3.87 K/mm3 (0.9-3.2); Lymphocytes Percent Auto 29.1 % (18.3-44.2); Mean Corpuscular HGB Conc 29.5 g/dl (32-36); Mean Corpuscular Hemoglobin 24.9 pg (26-34); Mean Corpuscular Volume 84.4 fl (80-100); Mean Platelet Volume 11.2 fl (7.4-10.4); Monocytes Absolute Auto 1.5 K/mm3 (0.1-0.6); Neutrophils Percent Auto 52.6 % (45.5-73.1); Platelet Count Result 453 k/mm3 (150-375); Red Blood Count 4.37 M/mm3 (4.2-5.4); Red Cell Distribution Width 16.9 % (11.5-14.5); White Blood Count 13.3 K/mm3 (4.5-10.0)
[2024-11-24 08:44] LABS: Platelet Estimate Slightly Increased (Adequate)
[2024-11-24 08:45] LABS: Alanine Aminotransferase 13 U/L (6-35); Albumin Level 3.8 g/dL (3.5-5.1); Alkaline Phosphatase 134 U/L (38-126); Anion Gap 12 mmol/L (4-12); Anisocytosis 1+; Aspartate Amino Transferase 17 U/L (14-36); Bilirubin,Total 0.4 mg/dL (0.2-1.3); Blood Urea Nitrogen 21 mg/dL (7-17); Calcium 9.3 mg/dL (8.4-10.2); Carbon Dioxide 28 mmol/L (22-30); Chloride 99 mmol/L (98-107); Estimated CRCL calculation 42 ml/min; Estimated Glomerular Filt Rate 46; Glucose 213 mg/dL (65-110); Hypochromasia 1+; Magnesium 1.9 mg/dL (1.6-2.3); Potassium 4.3 mmol/L (3.4-5.0); Schistocytes None Seen; Sodium 139 mmol/L (137-145); Total Protein 7.1 g/dL (6.3-8.2)
[2024-11-24 08:47] VITALS: BP 116/52; PULSE 90; RESP 16; TEMP 36.6; O2SAT 99
[2024-11-24] MEDS: LIDOCAINE 5% PATCH 1 PATCH TRANSDERM (08:49)
[2024-11-24] MEDS: busPIRone HCL 5 MG TABLET 15 MG PO (08:52)
[2024-11-24] MEDS: lisinopriL 10 MG TABLET 30 MG PO (08:52)
[2024-11-24 08:53] VITALS: PULSE 90
[2024-11-24] MEDS: METOPROLOL SUCCINATE EXT REL 50 MG TABCR PO (08:53)
[2024-11-24] MEDS: GABAPENTIN 100 MG CAPSULE PO ×2 (08:53→12:56)
[2024-11-24] MEDS: CYCLOBENZAPRINE HCL 10 MG TABLET PO ×2 (08:53→12:56)
[2024-11-24] MEDS: DOCUSATE SODIUM 100 MG CAPSULE PO (08:53)
[2024-11-24] MEDS: FUROSEMIDE 20 MG TABLET PO (08:53)
[2024-11-24] MEDS: MAGNESIUM OXIDE 400 MG TABLET PO (08:53)
[2024-11-24] MEDS: amLODIPine BESYLATE 10 MG TABLET PO (08:53)
[2024-11-24] MEDS: PANTOPRAZOLE 40 MG TABLET PO (08:53)
[2024-11-24] MEDS: ASPIRIN 81 MG CHEWABLE TABLET PO (08:53)
--- NOTE | 2024-11-24 10:44 | PC.NURSE ---
RN and DOCUMENT EXAMINER Kimber spoke about patient and Kimber has concerns about the cast being too tight. RN called ortho Dr. Rosales and left a message.
--- NOTE | 2024-11-24 10:45 | P.PNIM_ITS ---
Subjective Date/time seen: 11/24/24 10:45 Review of Systems Review of Systems: All systems reviewed & are unremarkable except as noted in HPI and below Objective Data Vital Signs Vital Signs: Vital Signs - 24 hr 11/23/24 13:57 11/23/24 20:00 11/23/24 20:00 Temperature 98.1 F Pulse Rate 89 93 Respiratory Rate 16 20 Blood Pressure 106/73 Pulse Oximetry 96 96 Oxygen Delivery Room Air Room Air Fraction of Inspired Oxygen 21 11/23/24 22:00 11/24/24 06:00 11/24/24 08:00 Temperature 97.4 F L 98 F Pulse Rate 93 88 Respiratory Rate 18 18 Blood Pressure 131/60 134/64 Pulse Oximetry 96 98 99 Oxygen Delivery Room Air Fraction of Inspired Oxygen 11/24/24 08:47 11/24/24 08:53 Temperature 98 F Pulse Rate 90 90 Respiratory Rate 16 Blood Pressure 116/52 L Pulse Oximetry 99 Oxygen Delivery Fraction of Inspired Oxygen Intake/Output Intake/Output: Intake & Output 11/21/24 11/22/24 11/23/24 11/24/24 23:59 23:59 23:59 23:59 Intake Total 960 1060 1030 900 Output Total 1600 Balance -640 1060 1030 900 Meds/Results Medications: Active Medications Generic Name Dose Route Start Last Admin Trade Name Freq PRN Reason Stop Dose Admin Acetaminophen 650 mg 11/14/24 15:51 11/19/24 05:17 Acetaminophen 325 Mg Tablet PO 650 mg Q4H PRN Administration Mild Pain (1-3) or Fever Hydrocodone Bitart/Acetaminophen 1 tab 11/14/24 15:51 11/24/24 08:52 Hydrocodone/Acetaminophen (*Crx) 5-325 Mg Tablet PO 1 tab Q4H PRN Administration pain 4-10 Albuterol 2 puff 11/14/24 15:53 Albuterol Sulfate (*Sp) Aerosol 1 Puff INHALATION Q4H PRN Shortness Of Breath Amlodipine Besylate 10 mg 11/15/24 09:00 11/24/24 08:53 Amlodipine Besylate 10 Mg Tablet PO 10 mg DAILY ROB Administration Aspirin 81 mg 11/15/24 09:00 11/24/24 08:53 Aspirin 81 Mg Chewable Tablet PO 81 mg DAILY ROB Administration Buspirone HCl 15 mg 11/17/24 17:00 11/24/24 08:52 Buspirone Hcl 5 Mg Tablet PO 15 mg BID ROB Administration Calcium Carbonate 500 mg 11/16/24 09:00 11/23/24 08:52 Calcium Carbonate (Tums) 500 Mg (200 Mg Elemental) PO 500 mg DAILY ROB Administration Cyclobenzaprine HCl 10 mg 11/14/24 15:53 11/24/24 08:53 Cyclobenzaprine Hcl 10 Mg Tablet PO 10 mg TID PRN Administration Muscle Spasm Dextrose 12.5 gm 11/14/24 16:40 Dextrose 50% 25 Gm/50 Ml Syringe IV PUSH PRN PRN Hypoglycemia Protocol Docusate Sodium 100 mg 11/14/24 17:00 11/24/24 08:53 Docusate Sodium 100 Mg Capsule PO 100 mg BID ROB Administration Fluoxetine HCl 40 mg 11/17/24 21:00 11/23/24 20:31 Fluoxetine Hcl 20 Mg Capsule PO 40 mg HS ROB Administration Fluoxetine HCl 20 mg 11/18/24 09:00 11/23/24 08:55 Fluoxetine Hcl 20 Mg Capsule PO 20 mg DAILY ROB Administration Furosemide 20 mg 11/15/24 09:00 11/24/24 08:53 Furosemide 20 Mg Tablet PO 20 mg DAILY ROB Administration Gabapentin 100 mg 11/17/24 17:00 11/24/24 08:53 Gabapentin 100 Mg Capsule PO 100 mg TID ROB Administration Glucagon 1 mg 11/14/24 16:40 Glucagon For Inj 1 Mg Vial IM PRN PRN Hypoglycemia Protocol Glucose 15 gm 11/14/24 16:40 Glucose Oral Gel 15 Gm Of Glucse In 37.5 Gm Tube PO PRN PRN Hypoglycemia Protocol Dextrose 1,000 mls @ 100 mls/hr 11/14/24 16:40 Dextrose 5% 1,000 Ml IVPB PRN PRN Hypoglycemia Protocol Ibuprofen 800 mg in 200 mls @ 400 mls/hr 11/15/24 11:06 11/17/24 08:00 Caldolor 800 Mg/200 Ml IVPB Infused Q6H PRN Infusion Breakthrough Pain Rated 1-3 or NPO Insulin Aspart 3 - 6 units 11/14/24 17:00 11/24/24 08:49 Insulin Aspart (*Bkc) 100 Units/Ml SUB-Q Not Given TIDWM ROB Protocol Insulin Aspart 1 - 3 units 11/14/24 21:00 11/23/24 20:34 Insulin Aspart (*Bkc) 100 Units/Ml SUB-Q 2 units HS ROB Administration Protocol Insulin Aspart 6 units 11/20/24 12:00 11/24/24 08:50 Insulin Aspart (*Bkc) 100 Units/Ml SUB-Q Not Given TIDWM ROB Insulin Glargine 28 units 11/23/24 18:00 11/23/24 16:44 Insulin Glargine (*Bkc) 100 Units/Ml SUB-Q 28 units QPM ROB Administration Lidocaine 1 patch 11/19/24 15:10 11/24/24 08:49 Lidocaine 5% Patch TRANSDERM 1 patch DAILY ROB Administration Lisinopril 30 mg 11/15/24 09:00 11/24/24 08:52 Lisinopril 10 Mg Tablet PO 30 mg DAILY ROB Administration Magnesium Oxide 400 mg 11/22/24 17:00 11/24/24 08:53 Magnesium Oxide 400 Mg Tablet PO 400 mg BID ROB Administration Melatonin 10 mg 11/14/24 21:00 11/23/24 20:40 Melatonin 5 Mg Tablet PO 10 mg HS ROB Administration Methocarbamol 500 mg 11/15/24 10:09 11/24/24 02:40 Methocarbamol 500 Mg Tablet PO 500 mg Q8H PRN Administration muscle spasm Metoprolol Succinate 50 mg 11/15/24 09:00 11/24/24 08:53 Metoprolol Succinate Ext Rel 50 Mg Tabcr PO 50 mg DAILY ROB Administration Naloxone HCl 0.1 mg 11/15/24 11:06 Naloxone Hcl 0.4 Mg/Ml Vial IV PUSH Q2M PRN Opiate Reversal Nicotine 1 patch 11/15/24 20:15 11/24/24 08:51 Nicotine (*Pbkc) 14 Mg Patch TRANSDERM Not Given DAILY ROB Olanzapine 5 mg 11/17/24 21:00 11/23/24 20:31 Olanzapine 5 Mg Tablet PO 5 mg HS ROB Administration Ondansetron HCl 4 mg 11/15/24 11:06 11/15/24 17:21 Ondansetron Inj 4 Mg/2 Ml Vial IV PUSH 4 mg Q4H PRN Administration Nausea And Vomiting Pantoprazole Sodium 40 mg 11/17/24 21:00 11/24/24 08:53 Pantoprazole 40 Mg Tablet PO 40 mg Q12HR ROB Administration Polyethylene Glycol 17 gm 11/21/24 17:51 Polyethylene Glycol 3350 17 Gm Powd.Pack PO QAM PRN Constipation Rosuvastatin Calcium 20 mg 11/14/24 21:00 11/23/24 20:33 Rosuvastatin 20 Mg Tablet PO 20 mg HS ROB Administration Radiology Results: ITS Impressions Chest X-Ray 11/15/24 06:36 Impression: Suspected COPD with left basilar atelectasis or scarring. Intraoperative X-Ray 11/15/24 14:13 IMPRESSION: 1. Near-anatomic alignment post open reduction internal fixation of trimalleolar fracture of the right ankle. See procedure note for further detail. Labs Labs: Laboratory Results - last 24 hr 11/23/24 11/23/24 11/23/24 11:47 16:22 20:22 WBC RBC Hgb Hct MCV MCH MCHC RDW Plt Count MPV Immature Gran % (Auto) Neut % (Auto) Lymph % (Auto) [place] % (Auto) Eos % (Auto) Baso % (Auto) Lymph # (Auto) [place] # (Auto) Eos # (Auto) Baso # (Auto) Abs Immat Gran (auto) Absolute Neuts (auto) Absolute Nucleated RBC Band Neutrophils % Nucleated RBC % Platelet Estimate Hypochromasia Anisocytosis Schistocytes Sodium Potassium Chloride Carbon Dioxide Anion Gap BUN Creatinine Estim Creat Clear Calc Estimated GFR Glucose POC Capillary Glucose 220 H 250 H 276 H Calcium Magnesium Total Bilirubin AST ALT Alkaline Phosphatase Total Protein Albumin 11/24/24 11/24/24 07:46 07:50 WBC 13.3 H RBC 4.37 Hgb 10.9 L Hct 36.9 L MCV 84.4 MCH 24.9 L MCHC 29.5 L RDW 16.9 H Plt Count 453 H MPV 11.2 H Immature Gran % (Auto) 0.8 H Neut % (Auto) 52.6 Lymph % (Auto) 29.1 [place] % (Auto) 11.0 H Eos % (Auto) 5.6 H Baso % (Auto) 0.9 Lymph # (Auto) 3.87 H [place] # (Auto) 1.5 H Eos # (Auto) 0.7 H Baso # (Auto) 0.1 Abs Immat Gran (auto) 0.10 H Absolute Neuts (auto) 7.0 H Absolute Nucleated RBC 0.000 Band Neutrophils % Not Reportable Nucleated RBC % 0.0 Platelet Estimate Slightly increased Hypochromasia 1+ Anisocytosis 1+ Schistocytes None seen Sodium 139 Potassium 4.3 Chloride 99 Carbon Dioxide 28 Anion Gap 12 BUN 21 H Creatinine 1.19 H Estim Creat Clear Calc 42 Estimated GFR 46 L Glucose 213 H POC Capillary Glucose 185 H Calcium 9.3 Magnesium 1.9 Total Bilirubin 0.4 AST 17 ALT 13 Alkaline Phosphatase 134 H Total Protein 7.1 Albumin 3.8
--- NOTE | 2024-11-24 11:05 | PC.NURSE ---
RN spoke to Ortho [facility]AC [facility]INEER and they said cast was fine.
--- NOTE | 2024-11-24 11:50 | P.PNOP_ITS ---
Progress Note: A&P Assessment and Plan (1) Displaced bimalleolar fracture of right ankle: Qualifiers: Encounter type: initial encounter Fracture type: closed Qualified Code(s): S82.841A - Displaced bimalleolar fracture of right lower leg, initial encounter for closed fracture Code(s): S82.841A - Displaced bimalleolar fracture of right lower leg, initial encounter for closed fracture Status: Acute Assessment and Plan: POD #9: Open reduction internal fixation right ankle bimalleolar fracture with fixation of medial and lateral fractures. Pain control. PT/OT. NWB RLE. High Fall Risk Precautions. Aspirin 81mg PO daily. Ice. Elevate. New cast applied yesterday. Patient tolerating it well. Patient denies feeling it is tight. She denies numbness/tingling. She can move her toes. She can feel her toes. She has no concerns regarding her cast. Recommended elevation if feelings of tightness occur. Discussed important and concerning signs to report to our office. No further questions. Dispo: TERESA given recurrent falls recently. Follow up outpatient. Time Spent With Patient Time: Reviewed history, exam, radiographs and current labs with attending MD and covering surgeon, Dr. Rosales, who agrees with current plan as indicated above. No further recommendations from Dr. Rosales at this time. Subjective Subjective Date/Time Seen: 11/24/24 11:50 Post Op day: 9 Principal diagnosis: right ankle fracture Interval history: POD #9: Open reduction internal fixation right ankle bimalleolar fracture with fixation of medial and lateral fractures. Patient denies pain. No new concerns. Up in chair. RN contacted us with concerns of the cast being too tight. Patient denies numbness/tingling of the toes. Denies increased pain. Does not feel tightness associated with the cast. Review of Systems Review of Systems: All systems reviewed & are unremarkable except as noted in HPI and below Exam Const: General: comfortable and no acute distress Resp: Effort & Inspection: normal respiratory effort Cardio: Rate: regular rate Rhythm: regular rhythm Neuro: Sensory Exam: normal sensation Extrem: Right lower extremity: knee Details: normal to inspection; no tenderness and no swelling, lower leg (Cast c/d/i ), ankle (cast c/d/i) Details: other ( Cast removed right ankle. Incision medial and lateral clean dry and intact. Sutures removed. Minimal swelling. No erythema. Good sensation to touch in the toes, good capillary refill. Negative Homans) and foot (cast c/d/i ) Details: toes with normal ROM Objective Data Vital Signs Vital Signs: Vital Signs - 24 hr 11/23/24 13:57 11/23/24 20:00 11/23/24 20:00 Temperature 36.7 C Pulse Rate 89 93 Respiratory Rate 16 20 Blood Pressure 106/73 Pulse Oximetry 96 96 Oxygen Delivery Room Air Room Air Fraction of Inspired Oxygen 21 11/23/24 22:00 11/24/24 06:00 11/24/24 08:00 Temperature 36.3 C L 36.6 C Pulse Rate 93 88 Respiratory Rate 18 18 Blood Pressure 131/60 134/64 Pulse Oximetry 96 98 99 Oxygen Delivery Room Air Fraction of Inspired Oxygen 11/24/24 08:47 11/24/24 08:53 Temperature 36.6 C Pulse Rate 90 90 Respiratory Rate 16 Blood Pressure 116/52 L Pulse Oximetry 99 Oxygen Delivery Fraction of Inspired Oxygen Intake/Output Intake/Output: Intake & Output 11/21/24 11/22/24 11/23/24 11/24/24 23:59 23:59 23:59 23:59 Intake Total 960 1060 1030 900 Output Total 1600 Balance -640 1060 1030 900 Meds/Results Medications: Active Medications Generic Name Dose Route Start Last Admin Trade Name Freq PRN Reason Stop Dose Admin Acetaminophen 650 mg 11/14/24 15:51 11/19/24 05:17 Acetaminophen 325 Mg Tablet PO 650 mg Q4H PRN Administration Mild Pain (1-3) or Fever Hydrocodone Bitart/Acetaminophen 1 tab 11/14/24 15:51 11/24/24 08:52 Hydrocodone/Acetaminophen (*Crx) 5-325 Mg Tablet PO 1 tab Q4H PRN Administration pain 4-10 Albuterol 2 puff 11/14/24 15:53 Albuterol Sulfate (*Sp) Aerosol 1 Puff INHALATION Q4H PRN Shortness Of Breath Amlodipine Besylate 10 mg 11/15/24 09:00 11/24/24 08:53 Amlodipine Besylate 10 Mg Tablet PO 10 mg DAILY ROB Administration Aspirin 81 mg 11/15/24 09:00 11/24/24 08:53 Aspirin 81 Mg Chewable Tablet PO 81 mg DAILY ROB Administration Buspirone HCl 15 mg 11/17/24 17:00 11/24/24 08:52 Buspirone Hcl 5 Mg Tablet PO 15 mg BID ROB Administration Calcium Carbonate 500 mg 11/16/24 09:00 11/23/24 08:52 Calcium Carbonate (Tums) 500 Mg (200 Mg Elemental) PO 500 mg DAILY ROB Administration Cyclobenzaprine HCl 10 mg 11/14/24 15:53 11/24/24 08:53 Cyclobenzaprine Hcl 10 Mg Tablet PO 10 mg TID PRN Administration Muscle Spasm Dextrose 12.5 gm 11/14/24 16:40 Dextrose 50% 25 Gm/50 Ml Syringe IV PUSH PRN PRN Hypoglycemia Protocol Docusate Sodium 100 mg 11/14/24 17:00 11/24/24 08:53 Docusate Sodium 100 Mg Capsule PO 100 mg BID ROB Administration Fluoxetine HCl 40 mg 11/17/24 21:00 11/23/24 20:31 Fluoxetine Hcl 20 Mg Capsule PO 40 mg HS ROB Administration Fluoxetine HCl 20 mg 11/18/24 09:00 11/23/24 08:55 Fluoxetine Hcl 20 Mg Capsule PO 20 mg DAILY ROB Administration Furosemide 20 mg 11/15/24 09:00 11/24/24 08:53 Furosemide 20 Mg Tablet PO 20 mg DAILY ROB Administration Gabapentin 100 mg 11/17/24 17:00 11/24/24 08:53 Gabapentin 100 Mg Capsule PO 100 mg TID ROB Administration Glucagon 1 mg 11/14/24 16:40 Glucagon For Inj 1 Mg Vial IM PRN PRN Hypoglycemia Protocol Glucose 15 gm 11/14/24 16:40 Glucose Oral Gel 15 Gm Of Glucse In 37.5 Gm Tube PO PRN PRN Hypoglycemia Protocol Dextrose 1,000 mls @ 100 mls/hr 11/14/24 16:40 Dextrose 5% 1,000 Ml IVPB PRN PRN Hypoglycemia Protocol Ibuprofen 800 mg in 200 mls @ 400 mls/hr 11/15/24 11:06 11/17/24 08:00 Caldolor 800 Mg/200 Ml IVPB Infused Q6H PRN Infusion Breakthrough Pain Rated 1-3 or NPO Insulin Aspart 3 - 6 units 11/14/24 17:00 11/24/24 08:49 Insulin Aspart (*Bkc) 100 Units/Ml SUB-Q Not Given TIDWM ROB Protocol Insulin Aspart 1 - 3 units 11/14/24 21:00 11/23/24 20:34 Insulin Aspart (*Bkc) 100 Units/Ml SUB-Q 2 units HS ROB Administration Protocol Insulin Aspart 6 units 11/20/24 12:00 11/24/24 08:50 Insulin Aspart (*Bkc) 100 Units/Ml SUB-Q Not Given TIDWM ROB Insulin Glargine 28 units 11/23/24 18:00 11/23/24 16:44 Insulin Glargine (*Bkc) 100 Units/Ml SUB-Q 28 units QPM ROB Administration Lidocaine 1 patch 11/19/24 15:10 11/24/24 08:49 Lidocaine 5% Patch TRANSDERM 1 patch DAILY ROB Administration Lisinopril 30 mg 11/15/24 09:00 11/24/24 08:52 Lisinopril 10 Mg Tablet PO 30 mg DAILY ROB Administration Magnesium Oxide 400 mg 11/22/24 17:00 11/24/24 08:53 Magnesium Oxide 400 Mg Tablet PO 400 mg BID ROB Administration Melatonin 10 mg 11/14/24 21:00 11/23/24 20:40 Melatonin 5 Mg Tablet PO 10 mg HS ROB Administration Methocarbamol 500 mg 11/15/24 10:09 11/24/24 02:40 Methocarbamol 500 Mg Tablet PO 500 mg Q8H PRN Administration muscle spasm Metoprolol Succinate 50 mg 11/15/24 09:00 11/24/24 08:53 Metoprolol Succinate Ext Rel 50 Mg Tabcr PO 50 mg DAILY ROB Administration Naloxone HCl 0.1 mg 11/15/24 11:06 Naloxone Hcl 0.4 Mg/Ml Vial IV PUSH Q2M PRN Opiate Reversal Nicotine 1 patch 11/15/24 20:15 11/24/24 08:51 Nicotine (*Pbkc) 14 Mg Patch TRANSDERM Not Given DAILY ROB Olanzapine 5 mg 11/17/24 21:00 11/23/24 20:31 Olanzapine 5 Mg Tablet PO 5 mg HS ROB Administration Ondansetron HCl 4 mg 11/15/24 11:06 11/15/24 17:21 Ondansetron Inj 4 Mg/2 Ml Vial IV PUSH 4 mg Q4H PRN Administration Nausea And Vomiting Pantoprazole Sodium 40 mg 11/17/24 21:00 11/24/24 08:53 Pantoprazole 40 Mg Tablet PO 40 mg Q12HR ROB Administration Polyethylene Glycol 17 gm 11/21/24 17:51 Polyethylene Glycol 3350 17 Gm Powd.Pack PO QAM PRN Constipation Rosuvastatin Calcium 20 mg 11/14/24 21:00 11/23/24 20:33 Rosuvastatin 20 Mg Tablet PO 20 mg HS ROB Administration Radiology Results: ITS Impressions Chest X-Ray 11/15/24 06:36 Impression: Suspected COPD with left basilar atelectasis or scarring. Intraoperative X-Ray 11/15/24 14:13 IMPRESSION: 1. Near-anatomic alignment post open reduction internal fixation of trimalleolar fracture of the right ankle. See procedure note for further detail. Labs Labs: Laboratory Results - last 24 hr 11/23/24 11/23/24 11/23/24 11:47 16:22 20:22 WBC RBC Hgb Hct MCV MCH MCHC RDW Plt Count MPV Immature Gran % (Auto) Neut % (Auto) Lymph % (Auto) [place] % (Auto) Eos % (Auto) Baso % (Auto) Lymph # (Auto) [place] # (Auto) Eos # (Auto) Baso # (Auto) Abs Immat Gran (auto) Absolute Neuts (auto) Absolute Nucleated RBC Band Neutrophils % Nucleated RBC % Platelet Estimate Hypochromasia Anisocytosis Schistocytes Sodium Potassium Chloride Carbon Dioxide Anion Gap BUN Creatinine Estim Creat Clear Calc Estimated GFR Glucose POC Capillary Glucose 220 H 250 H 276 H Calcium Magnesium Total Bilirubin AST ALT Alkaline Phosphatase Total Protein Albumin 11/24/24 11/24/24 07:46 07:50 WBC 13.3 H RBC 4.37 Hgb 10.9 L Hct 36.9 L MCV 84.4 MCH 24.9 L MCHC 29.5 L RDW 16.9 H Plt Count 453 H MPV 11.2 H Immature Gran % (Auto) 0.8 H Neut % (Auto) 52.6 Lymph % (Auto) 29.1 [place] % (Auto) 11.0 H Eos % (Auto) 5.6 H Baso % (Auto) 0.9 Lymph # (Auto) 3.87 H [place] # (Auto) 1.5 H Eos # (Auto) 0.7 H Baso # (Auto) 0.1 Abs Immat Gran (auto) 0.10 H Absolute Neuts (auto) 7.0 H Absolute Nucleated RBC 0.000 Band Neutrophils % Not Reportable Nucleated RBC % 0.0 Platelet Estimate Slightly increased Hypochromasia 1+ Anisocytosis 1+ Schistocytes None seen Sodium 139 Potassium 4.3 Chloride 99 Carbon Dioxide 28 Anion Gap 12 BUN 21 H Creatinine 1.19 H Estim Creat Clear Calc 42 Estimated GFR 46 L Glucose 213 H POC Capillary Glucose 185 H Calcium 9.3 Magnesium 1.9 Total Bilirubin 0.4 AST 17 ALT 13 Alkaline Phosphatase 134 H Total Protein 7.1 Albumin 3.8
[2024-11-24 12:08] LABS: Glucose Point of Care 329 mg/dl (65-105)
[2024-11-24] MEDS: CALCIUM CARBONATE (TUMS) 500 MG (200 MG ELEMENTAL) PO (12:10)
[2024-11-24] MEDS: INSULIN ASPART (*BKC) 100 UNITS/ML SUB-Q (12:11)
--- NOTE | 2024-11-24 12:11 | P.DS_ITS ---
DS: Admitting Diagnosis Discharge Date 11/24/2024 Admitting Diagnosis Fall, right ankle pain. DS: Discharge Diagnosis Discharge Diagnosis (1) Displaced bimalleolar fracture of right ankle: Qualifiers: Encounter type: initial encounter Fracture type: closed Qualified Code(s): S82.841A - Displaced bimalleolar fracture of right lower leg, initial encounter for closed fracture Code(s): S82.841A - Displaced bimalleolar fracture of right lower leg, initial encounter for closed fracture Status: Acute (2) Hypertension: Code(s): I10 - Essential (primary) hypertension Status: Acute (3) Diabetes: Code(s): E11.9 - Type 2 diabetes mellitus without complications Status: Acute (4) Depression: Code(s): F32.A - Depression, unspecified Status: Acute (5) Hypomagnesemia: Code(s): E83.42 - Hypomagnesemia Status: Acute (6) Hypokalemia: Code(s): E87.6 - Hypokalemia Status: Acute (7) Elevated alkaline phosphatase level: Code(s): R74.8 - Abnormal levels of other serum enzymes Status: Acute DS: Summary Hospital Course Hospital Course: Patient is a 59 year old female states that she was going to walk home from a friend's house to her house and made about 2 blocks before she tripped on the sidewalk and fell. Lab work revealed leukocytosis at 13.3, anemia at 11.3, potassium 3.4, BUN of 6, creatinine of 1.19, GFR of 46, glucose of 352, hemoglobin A1c of 8.7, calcium at 8.3, magnesium of 1.7, EKG shows sinus rhythm. Right ankle x-ray shows displaced bimalleolar fracture. Ankle xr showed right displaced bimalleolar fracture Ankle xr following reduction showed partial reduction of displaced bimalleolar fracture Analgesics PT/OT, weight bearing per ortho is non weight bearing Magnesium 0.9. given supplement IV and started on oral. Diabetes medications adjusted. Potassium supplemented. Patient to follow up with orthopedics outpatient, cast changed 11/23/24. Status at Discharge Functional status at discharge: uses cane/walker Overall status at discharge: patient is not back to baseline Time Spent with Patient Time attestation: Total time spent providing and/or coordinating discharge services: Time spent: Greater than 30 minutes Exam Const: General: no acute distress and uncomfortable Resp: Effort & Inspection: normal respiratory effort Auscultation: clear to auscultation bilaterally Cardio: Rate: regular rate Rhythm: regular rhythm GI: GI Palp: Yes Soft to palpation Auscultation: normal bowel sounds Extrem: General: no pedal edema Other: Cast to RLE. Psych: Mental Status: mental status grossly normal Affect: normal affect DS: Data Data Completed and Pending Labs on day of discharge: Labs from last 24 hours 11/24/24 11/24/24 11/24/24 11:52 07:50 07:46 WBC 13.3 H RBC 4.37 Hgb 10.9 L Hct 36.9 L MCV 84.4 MCH 24.9 L MCHC 29.5 L RDW 16.9 H Plt Count 453 H MPV 11.2 H Immature Gran % (Auto) 0.8 H Neut % (Auto) 52.6 Lymph % (Auto) 29.1 [place] % (Auto) 11.0 H Eos % (Auto) 5.6 H Baso % (Auto) 0.9 Lymph # (Auto) 3.87 H [place] # (Auto) 1.5 H Eos # (Auto) 0.7 H Baso # (Auto) 0.1 Abs Immat Gran (auto) 0.10 H Absolute Neuts (auto) 7.0 H Absolute Nucleated RBC 0.000 Band Neutrophils % Not Reportable Nucleated RBC % 0.0 Platelet Estimate Slightly increased Hypochromasia 1+ Anisocytosis 1+ Schistocytes None seen Sodium 139 Potassium 4.3 Chloride 99 Carbon Dioxide 28 Anion Gap 12 BUN 21 H Creatinine 1.19 H Estim Creat Clear Calc 42 Estimated GFR 46 L Glucose 213 H POC Capillary Glucose 329 H 185 H Calcium 9.3 Magnesium 1.9 Total Bilirubin 0.4 AST 17 ALT 13 Alkaline Phosphatase 134 H Total Protein 7.1 Albumin 3.8 11/23/24 11/23/24 20:22 16:22 WBC RBC Hgb Hct MCV MCH MCHC RDW Plt Count MPV Immature Gran % (Auto) Neut % (Auto) Lymph % (Auto) [place] % (Auto) Eos % (Auto) Baso % (Auto) Lymph # (Auto) [place] # (Auto) Eos # (Auto) Baso # (Auto) Abs Immat Gran (auto) Absolute Neuts (auto) Absolute Nucleated RBC Band Neutrophils % Nucleated RBC % Platelet Estimate Hypochromasia Anisocytosis Schistocytes Sodium Potassium Chloride Carbon Dioxide Anion Gap BUN Creatinine Estim Creat Clear Calc Estimated GFR Glucose POC Capillary Glucose 276 H 250 H Calcium Magnesium Total Bilirubin AST ALT Alkaline Phosphatase Total Protein Albumin Discharge Plan Discharge Attending physician on discharge: Felipe Brink Consulting providers: Coral Martinez; Steve Rosales Discharging Clinician: Coral Martinez Patient Disposition: Home Activity: no shower and no driving Diet: as tolerated and diabetic Wound Care Instructions: follow printed instructions Discharge Instructions: * Discharge disposition: Patient admitted to the hospital for a displaced bimalleolar fracture of the right ankle Underwent an open reduction internal fixation of the right ankle bimalleolar fracture with fixation of medial and lateral fractures on 11/[address] Rosales Orthopedic Recommendations Dr. Steve Rosales [phone] * Pain control. Ice. Elevate. * No weight bearing on the right lower extremity. * Do not get cast wet. * Follow up as scheduled below. * Monitor blood pressures * Take caution while standing, rising, or moving * Change positions slowly taking a break between each position change * If you standing feel dizzy sit back down and take a break * Encouraged to continue with yearly vaccinations * Return to the emergency department if he developed sudden shortness of breath, chest pain, nausea, vomiting, upset stomach or intractable diarrhea * Return to the emergency department if you develop fever greater than 101.5 * Follow-up with the primary care physician within 1-2 weeks. * Take magnesium as prescribed. Have primary follow magnesium levels. Thank you for choosing [facility] for your healthcare needs Patient Instructions: Antibiotic Form, Ankle Fracture (DC), Pain Management in Older Adults (GEN), Hypomagnesemia (DC), Diabetes and Nutrition (DC) Patient Language: Chilean Stand Alone Forms: General Discharge Information Follow-up/Referrals: Pardeep,Alethea E., POST COMMANDER [Primary Care Provider] - 1 Week Steve Rosales MD [Physician] - 12/14/24 8:45 am ([facility] ([facility] ) Discharge Medications: New magnesium oxide 400 mg (241.3 mg magnesium) Tablet 400 mg PO BID Qty: 60 0RF Continued cyclobenzaprine 10 mg tablet 10 mg PO TID PRN (Reason: Muscle Spasm) lisinopril 30 mg tablet 30 mg PO DAILY furosemide 20 mg tablet 20 mg PO DAILY albuterol sulfate 90 mcg/actuation HFA aerosol inhaler 2 puff INHALATION Q4-5H PRN (Reason: Shortness Of Breath) rosuvastatin 20 mg tablet 20 mg PO HS insulin aspart U-100 [Novolog U-100 Insulin aspart] 100 unit/mL Solution 1 sliding scale dose SUBCUT USEASDIRECTD Patient Comments: Patient states it was off for a possible back surgery Rx Instructions: pt has insulin pump pre set. 6420-8065 2.20 units/hr 0909-7120 1.90 units/hr ICR:7 ISF:25 TARGET:100-110 melatonin 10 mg Tablet 10 mg PO HS amlodipine 10 mg tablet 10 mg PO DAILY fluticasone propion-salmeterol [Wixela Inhub] 500-50 mcg/dose blister with device 1 inh INHALATION Q12H aspirin [Aspirin Childrens] 81 mg tablet,chewable 81 mg PO DAILY calcium carbonate [Calcium 500] 500 mg calcium (1,250 mg) tablet,chewable 500 mg PO DAILY metoprolol succinate 50 mg tablet extended release 24 hr 50 mg PO DAILY pantoprazole 40 mg Tablet,Delayed Release (Dr/Ec) 40 mg PO Q12HR Qty: 60 0RF ondansetron 4 mg tablet,disintegrating 4 mg PO Q8H PRN (Reason: nausea and vomiting) Qty: 30 0RF gabapentin 100 mg capsule 100 mg PO TID olanzapine 5 mg tablet 5 mg PO HS buspirone 15 mg tablet 15 mg PO BID fluoxetine 20 mg capsule 20 mg PO DAILY fluoxetine [Prozac] 40 mg capsule 40 mg PO HS oxycodone-acetaminophen 5-325 mg tablet 1 tablet PO Q12H PRN (Reason: pain) Changed insulin glargine [Lantus Solostar U-100 Insulin] 100 unit/mL (3 mL) insulin pen 28 unit subcut QPM Qty: 15 0RF Discontinued bupropion HCl 300 mg tablet extended release 24 hr 300 mg PO DAILY omeprazole 20 mg capsule,delayed release(DR/EC) 20 mg PO BID Date of admission: 11/16/24 15:20 Primary Care Provider: HenrryAlethea Admitting Provider: Patrick Arias Attending physician on admission: Patrick Arias Condition: Improved Hospitalist MIPS Heart Failure (Exclusion) Patient has history of Heart Transplant or Left Ventricular Assistive Device?: No IF YES, STOP HERE Heart Failure (Qualifier) Patient has current or prior documentation of LVEF less than or equal to 40%, or mod/servere depressed LVSF?: No IF NO, STOP HERE
[2024-11-24] MEDS: INSULIN ASPART (*BKC) 100 UNITS/ML 6 UNITS SUB-Q (12:14)
[2024-11-24 14:00] VITALS: BP 111/67; PULSE 98; RESP 18; TEMP 36.1; O2SAT 96
== END 2024-11-24 15:17 | disposition home or self-care (01) | DRG 494 ==
PROVIDERS: Nurse Practitioner Gerontology; Orthopaedic Surgery; Student in an Organized Health Care Education/Training Program; Admitting Provider General Practice; PCP Nurse Practitioner; Visit Provider Nurse Practitioner Family
PROC: 0QSJ04Z Reposition Right Fibula with Internal Fixation Device, Open Approach (ICD-10-PCS; principal; 2024-11-15 08:00)
DX: S82.841A Displaced bimalleolar fracture of right lower leg, initial encounter for closed fracture (principal); I10 Essential (primary) hypertension; E87.6 Hypokalemia; E83.42 Hypomagnesemia; E11.42 Type 2 diabetes mellitus with diabetic polyneuropathy; E78.5 Hyperlipidemia, unspecified; K21.9 Gastro-esophageal reflux disease without esophagitis; R74.8 Abnormal levels of other serum enzymes; R29.6 Repeated falls; F32.A Depression, unspecified; W01.0XXA Fall on same level from slipping, tripping and stumbling without subsequent striking against object, initial encounter; Z86.73 Personal history of transient ischemic attack (TIA), and cerebral infarction without residual deficits; Z87.891 Personal history of nicotine dependence; Z79.4 Long term (current) use of insulin; Z79.82 Long term (current) use of aspirin
CPT/HCPCS: 36415; 71045; 80048; 80053; 81003; 82948; 83036; 83735; 84132; 85025; 85027; 96365; 96367; 96375; 96376; 97110; 97116; 97162; 97166; 97530; 97535; 99199; A9270; C1713; C1769; G0378; J0690; J1100; J1171; J1741; J1815; J2003; J2250; J2270; J2371; J2405; J2704; J3010; J3475; J7120

== ENCOUNTER 2024-12-14 07:42 | Outpatient (CLI) | payer BC, SELFPAY ==
--- NOTE | ~2024-12-14 | XR_ITS ---
XR ankle RT min 3V Ordering provider: Steve Rosales MD History: . Fracture/Repair F/U X 4 weeks . Comparison: November 14 2024 FINDINGS: BONES: Postoperative changes in the medial and lateral malleoli. Overlying cast is noted. JOINT SPACES: Normal. SOFT TISSUES: Normal. IMPRESSION: Fracture in the medial and lateral malleoli with postoperative changes. Reviewed, dictated and finalized at location A.
--- OUTSIDE RECORDS SUMMARY | 2024-12-14 07:49 | XMS_ITS | Encounter Summary ---
Author Organization [facility] Address [address] [place] [address] Care Team Providers Care Tax Map Technician Name Role Phone Alethea Roberto Unavailable [phone] Alethea Roberto Primary Care Provider Yvette Cunningham MD Primary Care Provider [phone] Encounter Details Date Type Department Care Team (Late st Contact Info) Description 06/17/2024 [employer] Message Enc [facility] [address], [facility] [address] [place] [address] Kasey Newberry PA [address] [place] [address] Visit Follow Up Social History Tobacco Use [...] from your doctor or pharmacy? Never 04/11/2024 [facility] Utilities Answer Date Recorded In the past [...] week 04/11/2024 How often do you attend [facility] or jewish services? Patient declined 04/11/2024 Do you belong to any clubs o r organizations such as quaker groups, unions, fraternal or athletic groups, or [...] and heating? Not hard at all 04/11/2024 [facility] - Occupational Stress [...] place to sleep or slept in a fpc (including now)? No 08/07/2023 Housing Stability Vital Sign Answer Don e Recorded In the last 12 months, was t here a time when you were not able to pay the mortgage or rent on time? No 04/11/2024 In the past 12 months, how m any times have you moved where you were living? 0 04/11/2024 At any time in the past 12 m [facility], were you homeless or living in a fpc (including now)? No 04/11/2024 Comments No Sex and Gender Information Value Date Recorded Sex Assigned at Female 06/16/2024 3:02 PM OFFICE CLEANER Legal Sex Female 10:13 AM CDT Gender [...] documented as of this encounter Care Teams Tax Map Technician Relationship Specialty Start Date End Date Alethea Roberto APNP [address] [place], [place] [address] [address] PCP - General NURSE PRACTITIONER 02/18/23 07/07/24 Yvette Cunningham MD [facility] [place] [address] PCP - General FAMILY PRACTICE 07/08/24 Alethea Roberto APNP [address] [place], [place] [address] [address] Nurse Practitioner NURSE PRACTITIONER 03/09/21 documented as of this encounter
--- OUTSIDE RECORDS SUMMARY | 2024-12-14 07:49 | XMS_ITS | Encounter Summary ---
Author Organization [facility] Address [address] [place] [address] Care Team Providers Care Auto Roller Name Role Phone Jed Gale MD Primary Care Provider [phone] Alethea Roberto Primary Care Provider Alethea Roberto Unavailable [phone] Alethea Roberto Primary Care Provider Yvette Cunningham MD Primary Care Provider [phone] Encounter Details Date Type Department Care Team (Late st Contact Info) Description 11/08/2018 Abstract [facility] CONVERSION [address] [place] [address] , Generic Conversion, Social History Tobacco Use Types Packs/Day Years Used Date Smoking Tobacco: Never Assessed Comments Unknown Sex and Gender Information Value Date Recorded Sex Assigned at Female 06/16/2024 3:02 PM FASHION COORDINATOR Legal Sex Female 10:13 AM CDT Gender Identity Not on file Sexual Orientation Not on file documented as of this encounter Plan of Treatment Not on file documented as of this encounter Visit Diagnoses Not on filedocumented in this encounter Additional Health Concerns Infection Onset Date Last Indicated Resolved Time COVID-19 Rule Out 05/06/2020 05/06/2020 05/06/2020 2:48 PM FASHION COORDINATOR COVID-19 Rule Out 10/29/2020 10/29/2020 10/29/2020 7:37 PM CDT COVID-19 Rule Out 02/28/2022 02/28/2022 02/28/2022 10:20 AM CDT COVID-19 Rule Out 04/10/2024 04/10/2024 04/10/2024 12:09 PM FASHION COORDINATOR COVID-19 Rule Out 10/02/2024 10/02/2024 10/02/2024 1:17 PM CDT documented as of this encounter Care Teams Auto Roller Relationship Specialty Start Date End Date Jed Gale MD [address] [place] [address] PCP - General FAMILY PRACTICE 03/02/19 05/05/20 [place] [address] PCP - General NURSE PRACTITIONER 05/06/20 03/08/21 [place] [address] PCP - General NURSE PRACTITIONER 02/18/23 07/07/24 Yvette Cunningham MD [address] [place] [address] PCP - General FAMILY PRACTICE 07/08/24 Alethea Roberto APNP [address] [place] [address] Nurse Practitioner NURSE PRACTITIONER 03/09/21 documented as of this encounter
--- OUTSIDE RECORDS SUMMARY | 2024-12-14 07:49 | XMS_ITS | Encounter Summary ---
Author Organization [facility] Address [address] [place] [address] Care Team Providers Care Packing House Supervisor Name Role Phone Alethea Roberto Unavailable [phone] Alethea Roberto Primary Care Provider Yvette Cunningham MD Primary Care Provider [phone] Encounter Details Date Type Department Care Team (Late st Contact Info) Description 11/29/2021 [employer] Message [facility] Patient Accounts [address] [place] [address] [facility] Provider Payment Plan - past due Social [...] Sex Assigned at Female 06/16/2024 3:02 PM LABORER PETROLEUM REFINERY Legal Sex Female 10:13 AM CDT Gender [...] Rule Out 04/10/2024 04/10/2024 04/10/2024 12:09 PM LABORER PETROLEUM REFINERY COVID-19 Rule Out 10/02/2024 10/02/2024 10/02/2024 1:17 PM CDT documented as of this encounter Care Teams Packing House Supervisor Relationship Specialty Start Date End Date Alethea Roberto APNP [address] [place] [address] PCP - General NURSE PRACTITIONER 02/18/23 07/07/24 Yvette Cunningham MD [address] [place] [address] PCP - General FAMILY PRACTICE 07/08/24 Alethea Roberto APNP [address] [place] [address] Nurse Practitioner NURSE PRACTITIONER 03/09/21 documented as of this encounter
--- OUTSIDE RECORDS SUMMARY | 2024-12-14 07:49 | XMS_ITS | Clinical Summary ---
Author Organization [facility] Address [address] [place] [address] Care Team Providers Care Sanitation Truck Driver Name Role Phone Yvette Cunningham MD Primary Care Provider [phone] [facility],non-owned Affiliates and Associated Physician Practices is amultiple site organization consisting of ambulatory clinics and hospital sitesin [place], [place], [place] and [place]. This disclosure is being madepursuant to the Care Everywhere program and may not contain all information available regarding this patient. Last updated 18.[facility] Allergies Active Allergy Reactions Criticality Noted Date [...] daily Active Calcium Carbonate-Vit D-Min (CALCIUM 1200) 2554-2451 MG-UNIT CHEW Take 1 tablet by mouth [...] tablet by mouth 2 times daily Active Active Problems Problem Noted Date Diagnosed Date Aphasia 04/16/2021 Type 2 diabetes, controlled, with neuropathy Assessment & Plan (11/11/2024 1:50 PM CDT): At goal -continue current tx Hypertension 04/16/2021 Assessment & Plan (11/11/2024 1:50 PM CDT): -BP at goal -f/u with pcp for monitoring and adjustment Acute ischemic stroke 04/14/2021 Encounters Date Type Department Care Team Description 11/13/2024 Telephone [facility] - Cardiology [address] [id number] Unique Valdivia RN Loop Recorder 11/11/2024 10:00 AM CDT Office Visit [facility] - Neurology [address] [facility], [place] [id number] Eleni Gtz PA-C Cerebrovascular accident (CVA), unspecified mechanism (HCC) (Primary Dx); Primary hypertension; Type 2 diabetes, controlled, with neuropathy (HCC); Moderate episode of recurrent major depressive disorder (HCC); Hallucinations; Cognitive dysfunction 11/11/2024 Travel 10/28/2024 Telephone [facility] - Cardiology [address] [place] [id number] Provider, No Pcp Question; Loop Recorder from [...] on file Legal Sex Female 8:31 AM HOUSING ASSISTANT PROPERTY MANAGER Gender Identity Not on file Sexual Orientation Not on file Last Filed Vital Signs Vital Sign Reading Time Taken Comments Blood Pressure 116/74 11/11/2024 9:37 AM CDT Pulse 96 11/11/2024 9:37 AM CDT Temperature 36.6 C (97.8 F) 04/18/2021 12:58 PM HOUSING ASSISTANT PROPERTY MANAGER Respiratory Rate 14 11/11/2024 9:37 AM CDT Oxygen Saturation 95% 04/18/2021 3:02 PM HOUSING ASSISTANT PROPERTY MANAGER Inhaled Oxygen Concentration - - Weight 77.6 kg (171 lb) 11/11/2024 9:37 AM CDT Height 154.9 cm (5' 1) 11/22/2021 9:51 AM CDT Body Mass Index 32.31 11/22/2021 9:51 AM CDT Plan of Treatment Upcoming Encounters Date Type Department Care Team (Late st Contact Info) Description 12/31/2024 1:00 AM CDT Clinical Support [facility] - Cardiology [address] [facility], [address] [address] 02/04/2025 1:00 AM CDT Clinical Support [facility] - Cardiology [address] [place] [address], [address] [address] Health Maintenance Due Date Last Done Comments [...] , 01/29/2023, Additional history exists INFLUENZA VACCINE (#1) 2025 04/17/2021 MAMMOGRAM 03/22/2025 03/22/2023, 03/04, 12/21/2021 [...] this topic Medical Devices Implanted Type Area Early Childhood Teacher Device Identifier Shelf Expiration Date Model / Serial / Lot Sys Crd Mntr Rvl Linq Mycarelink Ins - [id number] Implanted:Qty : 1 on 04/18/2021 by Maico De La Cruz MD at [facility] Loop Recorder Left: Chest Wall [employer] 01/14/2022 LINQSYS DISCONTINUED / [id number] / Procedures Procedure Name Priority Date/Time Associated Diagnosis Comments BASIC METABOLIC PANEL (CALCIUM TOTAL) Routine 04/18/2021 3:51 AM HOUSING ASSISTANT PROPERTY MANAGER HEMOGLOBIN A1C Add on 04/16/2021 9:35 AM HOUSING ASSISTANT PROPERTY MANAGER from Last 3 Months or Most Recently Relevant to Health Maintenance Results * (ABNORMAL) BASIC METABOLIC PANEL (CALCIUM TOTAL) (04/18/2021 3:51 AM HOUSING ASSISTANT PROPERTY MANAGER) BUN 7 7 - 26 mg/dL 04/18/2021 5:15 AM [facility] Creatinine 0.80 0.56 - 0.96 mg/dL 04/18/2021 5:15 AM [facility] Sodium 141 136 - 145 mmol/L 04/18/2021 5:15 AM [facility] Potassium 3.2(L) 3.5 - 4.5 mmol/L 04/18/2021 5:15 AM [facility] Chloride 105 98 - 107 mmol/L 04/18/2021 5:[address] [facility] CO2 21(L) 22 - 29 mmol/L 04/18/2021 5:[address] [facility] Glucose 185(H) 70 - 115 mg/dL 04/18/2021 5:[address] [facility] Calcium 9.7 8.4 - 10.2 mg/dL 04/18/2021 5:[address] [facility] Anion Gap 18 8 - 18 04/18/2021 5:[address] [facility] BUN/Creatinine Ratio 9 7 - 23 04/18/2021 5:[address] [facility] Osmolality Calculated 295 270 - 300 mOsm/kg 04/18/2021 5:[address] [facility] eGFR by CKD-EPI 81(L) >=90 mL/min/1.7 3 m2 04/18/2021 5:[address] [facility] Blood BLOOD SPECIMEN / Unknown Lab Venipuncture / Unknown 04/18/2021 3:51 AM HOUSING ASSISTANT PROPERTY MANAGER 04/18/2021 4:52 AM [facility] us Aaron Hauser MD LAB - CHEMISTRY ORDERABLES Final Result [facility] [address] [place] [address], [facility] [phone] * (ABNORMAL) HEMOGLOBIN A1C (04/16/2021 9:35 AM [facility]) Hemoglobin A1c 7.9(H) 4.4 - 6.3 % 04/16/2021 11:[address] [facility] Estimated Average Glucose 180 mg/dL 04/16/2021 11:[address] [facility] Comment: HbA1c Interpretation: Treatment target values recommended by ADA and other clinical organizations should be used to evaluate metabolic control in patients. Treatment Target Values: Normal : < 5.7% Pre-diabetes: 5.7-6.4% Diabetes: Equal to or greater than 6.5% Reference: [place] Diabetes Association Standards of Care in Diabetes -2014 In patients 70 years and older consider HbA1c target range of 7.0-7.5% Reference: Diabetes Mellitus in Older People: Position Statement on behalf of the International Association of Gerontology and Geriatrics (IAGG), the Diabetes Working Democrat for Older People (EDWPOP), and the International Task Force of Experts in Diabetes. Akash Saavedra et al. J [place] Medical Directors Association. 2012 Test results diagnostic of diabetes should be repeated for confirmation. The Sebia Capillary 2 assay for the measurement of HbA1c is a National Glycohemoglobin Standardization Program (NGSP)certified method. Blood BLOOD SPECIMEN / Unknown Venipuncture / Unknown 04/16/2021 9:35 AM HOUSING ASSISTANT PROPERTY MANAGER 04/16/2021 9:40 AM HOUSING ASSISTANT PROPERTY MANAGER us Aaron Hauser MD LAB - CHEMISTRY ORDERABLES Final Result [address] [address], [facility] [phone] from Last 3 Months or Most Recently Relevant to Health Maintenance Insurance ANTH Advance Directives * Full Code (Latest Code Status on File) Date Activated Date Inactivated Comments 04/16/2021 12:01 AM 04/18/2021 5:09 PM Care Teams Sanitation Truck Driver Relationship Specialty Start Date End Date Yvette Cunningham MD [address] [place] [id number] PCP - General Family Medicine 11/11/24
--- OUTSIDE RECORDS SUMMARY | 2024-12-14 07:49 | XMS_ITS | Clinical Summary ---
Author Organization [facility] Address [address] [place] [address] Care Team Providers Care Choral Director Name Role Phone Alethea Roberto Amando DUFFY Unavailable [phone] Yvette Cunningham MD Primary Care Provider [phone] Allergies Active Allergy Reactions Criticality Noted Date Comments Latex Hives Low 03/16/2019 Sulfa Antibiotics Rash Medium 03/16/2019 Medications ADVAIR DISKUS 250-50 MCG/DOSE inhalerIndications :Asthma Inhale 1 puff into the lungs 2 (two) times daily. Indications: Asthma 0 8 Active metoprolol succinate ER (TOPROL-XL) 50 MG 24 hr tablet Take 1 tablet (50 mg total) by mouth daily. 4 9 Active FLUoxetine 20 MG capsule Take 1 capsule (20 mg total) by mouth daily. 1 Active lisinopril 30 MG tablet Take 1 tablet (30 mg total) by mouth nightly at bedtime. 1 Active omeprazole 20 MG capsule Take 1 capsule (20 mg total) by mouth 2 (two) times daily. 1 Active insulin aspart (NOVOLOG) 100 UNIT/ML injection (VIAL) USE DIRECTED VIA INSULIN PUMP 3 Active busPIRone (BUSPAR) 15 MG tablet Take 1 tablet (15 mg total) by mouth 2 (two) times daily. Active rosuvastatin (CRESTOR) 20 MG tablet Take 1 tablet (20 mg total) by mouth nightly at bedtime. Active cyclobenzaprine (FLEXERIL) 10 MG tablet Take 1 tablet (10 mg total) by mouth 3 (three) times daily as needed for Muscle Spasms. 3 Active aspirin 81 MG chewable tablet Chew 1 tablet (81 mg total) by mouth daily. Active melatonin 10 MG tablet Take 0.5 tablets (5 mg total) by mouth nightly as needed for Sleep. Active albuterol sulfate HFA 108 (90 Base) MCG/ACT inhaler Inhale 2 puffs into the lungs every 6 (six) hours as needed for Wheezing. Active acetaminophen (TYLENOL) 500 MG tablet Take 1 tablet (500 mg total) by mouth every 6 (six) hours as needed for Pain. Active WALKER MISC, DME,Indications:Ph ysical deconditioning 1 Device by Does not apply route as needed. Diagnosis: R53.1 1 Device 4 025 Active amLODIPine (NORVASC) 10 MG tablet Take 1 tablet (10 mg total) by mouth daily. 4 Active furosemide (LASIX) 20 MG tablet Take 1 tablet (20 mg total) by mouth daily. 4 Active FLUoxetine (PROZAC) 40 MG capsule Take 1 capsule (40 mg total) by mouth nightly at bedtime. Active pantoprazole EC (PROTONIX) 40 MG tablet Take 1 tablet (40 mg total) by mouth every 12 (twelve) hours. 5 Active gabapentin (NEURONTIN) 100 MG capsuleIndications :Pain Take 1 capsule (100 mg total) by mouth 3 (three) times daily. Indications: Pain 90 capsule 5 Active OLANZapine (ZYPREXA) 5 MG tabletIndications: Psychotic Depression Take 1 tablet (5 mg total) by mouth nightly at bedtime. Indications: Psychotic Depressive Illness 30 tablet 5 Active Active Problems Problem Noted Date Diagnosed Date Major depression with psychotic features (CMS/ C [facility]) 11/03/2024 Failure to thrive in adult 11/02/2024 Spinal arachnoid cyst 08/07/2023 Cervical radiculopathy 01/25/2023 Lumbar radiculopathy 12/28/2022 HTN (hypertension) 08/30/2022 Mixed hyperlipidemia 02/18/2017 Type 2 diabetes mellitus wit h stage 3a chronic kidney disease, with long-term current use of insulin ([facility]) 02/18/2017 Resolved Problems Problem Noted Date Diagnosed Date Resolved Date Passive suicidal ideations 11/03/2024 0 11/05/2024 Left hip pain 09/22/2024 11/03/2024 Physical deconditioning 04/29/2024 06/0 08/2024 Acute hypoxic respiratory fa ilure ([facility]) 04/11/2024 11/03/2024 Back pain 08/17/2023 11/03/2024 HCAP (healthcare-associated pneumonia) 02/28/2022 11/03/2024 Pneumonia 02/28/2022 11/03/2024 Closed displaced fracture of shaft of fifth metacarpal bone of right hand, initial encounter 02/19/2022 11/03/2024 Acute ischemic stroke ([facility]) 04/14/2021 11/03/2024 Pain in right elbow 12/15/2020 11/04/19 25 Encounters Date Type Department Care Team Description 11/13/2024 12:00 PM CDT Home Care Visit [address] [place] [address] [place] [address] Zenaida Harper RN SN NON ADMIT SOC 11/12/2024 1:01 PM CDT - 11/12/2024 11:59 PM CDT Hospital Encounter [facility] [address] [place] [address] Yvette Cunningham MD Overberg, Rachel, PA Discharge Disposition: Home or Self Care (Routine Discharge) 11/12/2024 12:59 PM CDT - 11/12/2024 1:00 PM CDT Hospital Encounter [facility] [address] [place] [address] Yvette Cunningham MD Discharge Disposition: Home or Self Care (Routine Discharge) 11/12/2024 Orders Only [facility] [address] [place] [address] Eleni Gtz PA 11/12/2024 Travel 11/09/2024 11:30 AM CDT Home Care Visit [address] [place] [address] [place] [address] Zenaida Harper RN SN NON ADMIT SOC 11/02/2024 1:00 PM CDT - 11/05/2024 1:43 PM CDT Hospital Encounter [facility] [address] [place] [address] [place] [address] Beulah Parra MD Wheeler, Erin M, MD Fatigue; Altered Mental Status Discharge Disposition: Home or Self Care (Routine Discharge) 11/02/2024 Travel 10/08/2024 8:54 AM CDT - 10/08/2024 11:42 AM CDT Emergency [facility] [address] [place] [address] [place] [address] Mike Dunbar MD Back Pain Discharge Disposition: Home or Self Care (Routine Discharge) 10/08/2024 Travel 10/02/2024 11:52 AM CDT - 10/02/2024 4:00 PM CDT Emergency [facility] [address] [place] [address] [place] [address] Mike Dunbar MD Leg Pain Discharge Disposition: Home or Self Care (Routine Discharge) 10/02/2024 Travel 09/30/2024 9:11 AM CDT - 09/30/2024 11:59 PM CDT Hospital Encounter [facility] [address] [place] [address] Gilma Castle APNP Kovarik, Ryan A, GROCERY STORE CLERK Hip Pain Discharge Disposition: Home or Self Care (Routine Discharge) 09/30/2024 Travel 09/28/2024 9:37 AM CDT - 09/28/2024 11:59 PM CDT Hospital Encounter [facility] [address] [place] [address] Gilma Castle APNP Kovarik, Ryan A, GROCERY STORE CLERK Hip Pain Discharge Disposition: Home or Self Care (Routine Discharge) 09/28/2024 Travel 09/22/2024 8:12 AM CDT - 09/22/2024 11:59 PM CDT Hospital Encounter [facility] [address] [place] [address] Jenn Sandoval, PT Hip Pain Discharge Disposition: Home or Self Care (Routine Discharge) 09/22/2024 Travel 09/21/2024 Telephone [facility] [address] [place] [address] Gilma Castle APNP Appointment Request 09/14/2024 9:53 AM CDT - 09/14/2024 11:59 PM CDT Hospital Encounter [facility] [address] [place] [address] Yvette Cunningham MD Discharge Disposition: Home or Self Care (Routine Discharge) 09/14/2024 Travel from Last 3 Months Family History [...] from your doctor or pharmacy? Never 04/11/2024 [facility] Utilities Answer Date Recorded In the past 12 months has [facility], gas, oil, or water Enefgy threatened to shut off services in your home? No 11/02/2024 Humiliation, Afraid, Rape, and Kick questionnair e Answer Date Recorded Within the last year, have y ou been afraid of your partner or ex-partner? No 11/02/2024 Within the last year, have y ou been humiliated or emotionally abused in other ways by your partner or ex-partner? No Within the last year, have y ou been kicked, hit, slapped, or otherwise physically hurt by your partner or ex-partner? No 11/02/2024 Within the last year, have y ou been raped or forced to have any kind of sexual activity by your partner or ex-partner? No 11/02/2024 Social Connection and Isolat ion Panel [NHANES] Answer Date Recorded In a typical week, how many times do you talk on the phone with family, friends, or neighbors? More than three times a week 04/11/2024 How often do you get togethe r with friends or relatives? More than three times a week 04/11/2024 How often do you attend chur ch or orthodox services? Patient declined 04/11/2024 Do you belong to any clubs o r organizations such as mu-ism groups, unions, fraternal or athletic groups, or [...] care, and heating? Not hard at all 11/02/2024 [facility] - Occupational [...] the money to buy more. Never true 11/03/19 25 Within the past 12 months, t he food you bought just didn't last and you didn't have money to get more. Never true 11/02/2024 PRAPARE - Transportation Answer Date Re corded In the past 12 months, has l ack of transportation kept you from medical appointments or from getting medications? No 07/2024 In the past 12 months, has l ack of transportation kept you from meetings, work, or from getting things needed for daily living? No 11/02/2024 Housing Stability Vital Sign Answer Don e [...] place to sleep or slept in a fci (including now)? No 08/07/2023 Housing Stability Vital Sign Answer Don e Recorded In the last 12 months, was t here a time when you were not able to pay the mortgage or rent on time? No 11/02/2024 In the past 12 months, how m any times have you moved where you were living? 0 11/02/2024 At any time in the past 12 m [facility], were you homeless or living in a fci (including now)? No 11/02/2024 Comments No Sex and Gender Information Value Date Recorded Sex Assigned at Female 06/16/2024 3:02 PM FUR DRESSER Legal Sex Female 10:13 AM CDT Gender Identity Not on file Sexual Orientation Not on file Last Filed Vital Signs Vital Sign Reading Time Taken Comments Blood Pressure 140/61 11/05/2024 12:26 PM CDT Pulse 86 11/05/2024 12:26 PM CDT Temperature 36.2 C (97.2 F) 11/05/2024 12:26 PM CDT Respiratory Rate 16 11/05/2024 12:26 PM CDT Oxygen Saturation 97% 11/05/2024 12:26 PM CDT Inhaled Oxygen Concentration - - Weight 75.4 kg (166 lb 3 oz) 11/05/2024 4:38 AM CDT Height 154.9 cm (5' 1) 11/02/2024 5:08 PM CDT Body Mass Index 31.4 11/02/2024 5:08 PM CDT Plan of Treatment Health Maintenance Due [...] upon discharge from hospital Lifestyle No Leyda Gaitan, RN Interventions Community Resource Recommendations Community Resource Services Recommended Domains Addressed Status Status Reason/Outcome Date/Time [facility] Assisted Detoxification, Mental Health Hospital Treatment, Mental Health Residential Treatment, Safe Housing: Substance Use, Severe Mental Illness Skilled Nursing, Short Term Detoxification, Sober Living Community, Substance Use Recovery Home Tobacco Use, Depression 11/04/2024 2:29 PM CDT [facility] Mental Health Hospital Treatment, Mental Health Residential Treatment, Mental Health Services, Substance Use Services Tobacco Use, Depression 11/04/2024 2:29 PM CDT [facility] Nanoscience Technician Detoxification, Mental Health Hospital Treatment, Mental Health Residential Treatment, Safe Housing: Substance Use, Severe Mental Illness Skilled Nursing, Short Term Detoxification, Sober Living Community, Substance Use Recovery Home Tobacco Use, Depression 11/04/2024 2:29 PM CDT [facility] Mental Health Hospital Treatment Depression 11/04/2024 2:29 PM CDT [facility] Mental Health Hospital Treatment Depression 11/04/2024 2:29 PM CDT [facility] Crisis Services, Mental Health Education, Mental Health Evaluation, Mental Health Hospital Treatment, Mental Health Services Depression 11/04/2024 2:29 PM CDT [facility] Crisis Services, Mental Health Education, Mental Health Evaluation, Mental Health Services Depression 11/04/2024 2:24 PM CDT [facility] Assisted Detoxification, Mental Health Hospital Treatment, Mental Health Residential Treatment, Safe Housing: Substance Use, Severe Mental Illness Skilled Nursing, Short Term Detoxification, Sober Living Community, Substance Use Recovery Home Tobacco Use, Depression 11/04/2024 2:24 PM CDT [facility] [place] Nanoscience Technician Detoxification, Mental Health Hospital Treatment, Mental Health Residential Treatment, Safe Housing: Substance Use, Severe Mental Illness Skilled Nursing, Short Term Detoxification, Sober Living Community, Substance Use Recovery Home Tobacco Use, Depression 11/04/2024 2:24 PM CDT from Last 12 Months Medical Devices Implanted Type Area Music Producer Device Identifier Shelf Expiration Date Model / Serial / Lot Agent Hemostatic Surgiflo 8 Ml Kit - [id number] Implanted:Qty: 2 on 08/07/2023 by William Mello MD at [facility] Sealant N/A: Spine Thoracic [employer] 09/30/2024 [id number] / / [id number] Agent Hemostatic Surgiflo 8 Ml Kit - [id number] Implanted:Qty: 1 on 08/07/2023 by William Mello MD at [facility] Sealant N/A: Spine Thoracic [employer] 09/30/2024 2994 / / [id number] 1.7mm S Locking Plate T, Narrow 10 Holes Implanted:Qty: 1 on 02/21/2022 by Jamil Lyons MD at [place] Right: Hand [employer] [id number] / / 1.7 X 11 Locking Screw Implanted:Qty: 2 on 02/21/2022 by Jamil Lyons MD at [place] Right: Hand [employer] [id number] / / 1.7 X 9 Locking Screw Implanted:Qty: 1 on 02/21/2022 by Jamil Lyons MD at [place] Right: Hand [employer] [id number] / / 1.7 X 7 Locking Screw Implanted:Qty: 2 on 02/21/2022 by Jamil Lyons MD at [place] Right: Hand [employer] [id number] / / 1.7 X 6 Locking Screw Implanted:Qty: 1 on 02/21/2022 by Jamil Lyons MD at [place] Right: Hand [employer] [id number] / / Variax 2 Non-Locking Screw 1.7mm X 7mm Implanted:Qty: 1 on 02/21/2022 by Jamil Lyons MD at [place] Right: Hand [employer] [id number] / / Variax 2 Non-Locking Screw 1.7mm X 8mm Implanted:Qty: 1 on 02/21/2022 by Jamil Lyons MD at [place] Right: Hand [employer] [id number] / / Vistaseal Fibrin Sealant Implanted:Qty: 1 on 08/07/2023 by William Mello MD at [facility] N/A: Spine Thoracic [employer] [id number] 08/16/2023 [id number] / [id number] / [id number] Explanted Type Area Music Producer Device Identifier Shelf Expiration Date Model / Serial / Lot 1.4 X 27mm, Ao Twist Drill Explanted:Qty: 1 on 02/21/2022 by Jamil Lyons MD at [place] Right: Hand [employer] [id number] / / Procedures Procedure Name Priority Date/Time Associated Diagnosis Comments VITAMIN B-12 Routine 11/12/2024 1:58 PM CDT Cognitive dysfunction CT LUNG SCREENING Routine 11/12/2024 1:3 3 PM CDT History of tobacco use POCT GLUCOSE - DOCKED DEVICE Routine 11/05/2024 11:48 AM CDT COMPREHENSIVE METABOLIC PANEL Routine 11/05/2024 5:41 AM CDT CBC W/DIFF AUTOMATED Routine 11/05/2024 5:41 AM CDT POCT GLUCOSE - DOCKED DEVICE Routine 11/04/2024 8:21 PM CDT POCT GLUCOSE - DOCKED DEVICE Routine 11/04/2024 4:25 PM CDT POCT GLUCOSE - DOCKED DEVICE Routine 11/04/2024 11:10 AM CDT POCT GLUCOSE - DOCKED DEVICE Routine 11/04/2024 6:24 AM CDT COMPREHENSIVE METABOLIC PANEL Routine 11/04/2024 5:08 AM CDT CBC W/DIFF AUTOMATED Routine 11/04/2024 5:08 AM CDT POCT GLUCOSE - DOCKED DEVICE Routine 11/04/2024 12:10 AM CDT POCT GLUCOSE - DOCKED DEVICE Routine 11/03/2024 3:58 PM CDT POCT GLUCOSE - DOCKED DEVICE Routine 11/03/2024 11:02 AM CDT MRI LUMB SPINE WO CON SERINA 11/03/2024 10:00 AM CDT POCT GLUCOSE - DOCKED DEVICE Routine 11/03/2024 6:02 AM CDT BASIC METABOLIC PANEL Routine 11/03/2024 5:32 AM CDT CBC W/DIFF AUTOMATED STAT 11/03/2024 5:32 AM CDT POCT GLUCOSE - DOCKED DEVICE Routine 11/02/2024 8:28 PM CDT URINE BACTERIA CULTURE STAT 3:46 PM CDT HC URINALYSIS AUTO W/MICRO STAT 11/02/2024 3:46 PM CDT XR CHEST PORTABLE STAT 11/02/2024 3:0 0 PM CDT CULTURE, BACTERIA, BLOOD STAT 11/02/2024 2:24 PM CDT BLOOD GAS, VENOUS STAT 11/02/2024 2:1 6 PM CDT CULTURE, BACTERIA, BLOOD STAT 11/02/2024 2:[address] HEAD WO CON STAT 11/02/2024 1:59 PM CDT ECG 12-LEAD Routine 11/02/2024 1:51 PM CDT LIPASE STAT 11/02/2024 1:46 PM CDT AMMONIA STAT 11/02/2024 1:46 PM CDT TSH W/REFLEX STAT 11/02/2024 1:46 PM CDT SALICYLATE STAT 11/02/2024 1:46 PM CDT ACETAMINOPHEN STAT 11/02/2024 1:46 PM CDT ETHANOL STAT 11/02/2024 1:46 PM CDT PRO-BRAIN NATRIURETIC PEPTIDE STAT 11/02/2024 1:46 PM CDT MAGNESIUM STAT 11/02/2024 1:46 PM CDT LACTIC ACID W REFLEX (SEPSIS) STAT 11/02/2024 1:46 PM CDT CK (CPK) STAT 11/02/2024 1:46 PM CDT TROPONIN, QUANT STAT 11/02/2024 1:46 PM CDT COMPREHENSIVE METABOLIC PANEL STAT 11/02/2024 1:46 PM CDT CBC W/DIFF AUTOMATED STAT 11/02/2024 1:46 PM CDT HC URINALYSIS AUTO W/MICRO STAT 10/08/2024 11:01 [...] 12:42 PM CDT URINE BACTERIA CULTURE STAT 12:30 PM CDT CORONAVIRUS (COVID-19) ANTIGEN STAT 10/02/2024 12:30 PM CDT DRUG SCREEN RAPID STAT 10/02/2024 12: 30 PM CDT HC URINALYSIS AUTO W/MICRO STAT 10/02/2024 12:30 PM CDT XR HIP LT 2V Routine 09/14/2024 10:06 AM CDT Left hip pain HEMOGLOBIN, GLYCOSYLATED Routine 04/11/2024 11:15 PM FUR DRESSER HEPATITIS PANEL,ACUTE STAT 08/17/2023 6:53 PM CDT MG SCREENING W SREE JUAN DIGI Routine 03/22/2023 10:16 AM CDT Visit for screening mammogram from Last 3 Months or Most Recently Relevant to Health Maintenance Results * VITAMIN B-12 (11/12/2024 1:58 PM CDT) VITAMIN B12 S/P/B 545 193 - 986 PG/ML 11/12/2024 8:07 PM CDT [facility] 11/12/2024 1:58 PM CDT us [facility] Final Result [facility] [address] [place] [address], [id number] * CT LUNG SCREENING (11/12/2024 1:33 PM CDT) Anatomical Region Laterality Modality Chest Computed Tomogra phy 11/18/2024 6:14 AM CDT Impressions 11/18/2024 6:15 AM CDT IMPRESSION: 1. LUNG-RADS category 1: Negative 2. LUNG-RADS category S: Negative 3. Other incidental findings as above. RECOMMENDATIONS: Follow-up LDCT Chest November 2025. Referred By: YVETTE CUNNINGHAM Interpreted By: Shade Kumar MD, 11/18/2024 6:14 AM Narrative 11/18/2024 6:15 AM CDT [address] [place] [address] Examination: CT LUNG SCREENING Exam time: 11/12/2024 1:33 PM HISTORY: Asymptomatic patient meeting NCCN high-risk criteria for lung screening. Former smoker. Quit 3 years ago. Smoked for 45 years of 1 pack per day. COMPARISON: 04/20/2024 TECHNIQUE: Noncontrast, helical, low-dose CT (LDCT) chest per standard departmental protocol. Automated exposure control was utilized for dose reduction. FINDINGS: Lung Screening Specific (LUNG-RADS): Old granulomata. Potentially Significant Incidentals (LUNG-RADS category S): None. Pulmonary Incidentals: COPD. Mild scarring. Other Incidentals: Degeneration in spine. Coronary artery calcifications. Aortic calcifications. Procedure Note Shade Kumar MD - 11/18/[address] [place] [address] Examination: CT LUNG SCREENING Exam time: 11/12/2024 1:33 PM HISTORY: Asymptomatic patient meeting NCCN high-risk criteria for lungscreening. Former smoker. Quit 3 years ago. Smoked for 45 years of 1 pack per day. COMPARISON: 04/20/2024 TECHNIQUE: Noncontrast, helical, low-dose CT (LDCT) chest per standarddepartmental protocol. Automated exposure control was utilized for dosereduction. FINDINGS: Lung Screening Specific (LUNG-RADS): Old granulomata. Potentially Significant Incidentals (LUNG-RADS category S): None. Pulmonary Incidentals: COPD. Mild scarring. Other Incidentals: Degeneration in spine. Coronary artery calcifications. Aortic calcifications. IMPRESSION: 1. LUNG-RADS category 1: Negative 2. LUNG-RADS category S: Negative 3. Other incidental findings as above. RECOMMENDATIONS: Follow-up LDCT Chest November 2025. Referred By: YVETTE CUNNINGHAM Interpreted By: Shade Kumar MD, 11/18/2024 6:14 AM Yvette Cunningham MD CT Final Result * (ABNORMAL) POCT glucose (11/05/2024 11:48 AM CDT) Only the most recent of10 resultswithin the time period is included. GLUCOSE POC 248(H) 70 - 99 MG/DL 11/05/2024 1:44 PM CDT [facility] 11/05/2024 11:4 8 AM CDT Yvette Cunningham MD POCT ORDERABLES - DEVICE Final Result [facility] [address] [place] [address], * (ABNORMAL) COMPREHENSIVE METABOLIC PANEL (11/05/2024 5:41 AM CDT) Only the most recent of5 resultswithin the time period is included. SODIUM S/P/B 141 136 - 145 MMOL/L 11/05/2024 6:07 AM CDT [facility] POTASSIUM S/P/B 3.3(L) 3.5 - 5.1 MMOL/L 11/05/2024 6:07 AM CDT [facility] CHLORIDE S/P/B 103 98 - 107 MMOL/L 11/05/2024 6:07 AM CDT [facility] CO2 28.1 21.0 - 32.0 MMOL/L 11/05/2024 6:07 AM [facility] GLUCOSE 230(H) 70 - 99 MG/DL 11/05/2024 6:07 AM [facility] Comment: FASTING GLUCOSE 100 TO 125 MG/DL IS CONSISTENT WITH IMPAIRED FASTING GLUCOSE. FASTING GLUCOSE >125 MG/DL IS CONSISTENT WITH DIABETES. RANDOM GLUCOSE >200 MG/DL WITH HYPERGLYCEMIC SYMPTOMS IS CONSISTENT WITH DIABETES. PER ADA GUIDELINES BUN 11 6 - 24 MG/DL 11/05/2024 6:07 AM [facility] CREATININE S/P/B 0.95 0.55 - 1.02 MG/DL 11/05/2024 6:07 AM [facility] CALCIUM S/P/B 9.3 8.4 - 10.5 MG/DL 11/05/2024 6:07 AM [facility] BILIRUBIN TOTAL S/P/B 0.5 0.2 - 1.0 MG/DL 11/05/2024 6:07 AM [facility] Comment: THIS ASSAY IS NOT RECOMMENDED FOR PATIENTS UNDERGOING TREATMENT WITH ELTROMBOPAG DUE TO THE POTENTIAL FOR FALSELY ELEVATED RESULTS. ALKALINE PHOSPHATASE S/P/B 140(H) 50 - 130 U/L 11/05/2024 6:07 AM [facility] AST 11(L) 15 - 37 U/L 11/05/2024 6:07 AM [facility] ALT 15 14 - 59 U/L 11/05/2024 6:07 AM [facility] TOTAL PROTEIN S/P/B 6.7 6.4 - 8.2 G/DL 11/05/2024 6:07 AM [facility] ALBUMIN S/P/B 3.0(L) 3.4 - 5.0 G/DL 11/05/2024 6:07 AM [facility] ANION GAP 9.9 5.0 - 15.0 MMOL/L 11/05/2024 6:07 AM [facility] OSMOLALITY (CALC) 299 MOSM/KG 025 6:07 AM [facility] Comment:REFERENCE RANGE NOT ESTABLISHED GFR ESTIMATE 68(L) >89 ML/MIN/1. 73 M2 11/05/2024 6:07 AM CDT [facility] GFR NOTES GFR REFERENCE S: 11/05/2024 6:07 AM CDT [facility] Comment: THE ESTIMATED GFR [...] ml/min/1.73 m2 G5,KIDNEY FAILURE: <15 ml/min/1.73 m2 11/05/2024 5:41 AM CDT us Yvette Cunningham MD LABORATORY Final Result [facility] [address] [place] [address], * (ABNORMAL) CBC W/DIFF AUTOMATED (11/05/2024 5:41 AM CDT) Only the most recent of6 resultswithin the time period is included. WBC 10.63 4.00 - 10.80 x10'3/uL 11/05/2024 5:50 AM CDT [facility] RBC 4.71 4.10 - 5.40 x10'6/uL 11/05/2024 5:50 AM CDT [facility] HGB 12.0 12.0 - 16.0 G/DL 11/05/2024 5:50 AM CDT [facility] HCT 38.5 36.0 - 47.0 % 11/05/2024 5:50 AM CDT [facility] MCV 81.7 78.0 - 100.0 FL 11/05/2024 5:50 AM CDT [facility] MCH 25.5(L) 27.0 - 31.0 PG 11/05/2024 5:50 AM CDT [facility] MCHC 31.2(L) 33.0 - 36.0 G/DL 11/05/2024 5:50 AM CDT [facility] RDW 15.9(H) 11.5 - 14.5 % 11/05/2024 5:50 AM CDT [facility] PLT 356(H) 150 - 350 x10'3/uL 11/05/2024 5:50 AM CDT [facility] MPV 10.3 7.4 - 10.4 FL 11/05/2024 5:50 AM CDT [facility] CBC COMMENT NORMAL REFERENCE RANGE NOT ESTABLISHED FOR THE PROPORTIONAL LEUKOCYTE DIFFERENTIAL. 11/05/2024 5:50 AM CDT [facility] NEUTROPHILS % 45.5 % 11/05/2024 5:50 AM CDT [facility] LYMPHOCYTES % 35.0 % 11/05/2024 5:50 AM CDT [facility] MONOCYTES % 11.8 % 11/05/2024 5:50 AM CDT [facility] EOSINOPHILS % 5.9 % 11/05/2024 5:50 AM CDT [facility] BASOPHILS % 1.1 % 11/05/2024 5:50 AM CDT [facility] IMMATURE GRANS % 0.7 % 11/06/19 5:50 AM CDT [facility] NRBC % 0.0 % 11/05/2024 5:50 AM CDT [facility] ABS. NEUTROPHILS 4.84 1.60 - 8.30 x10'3/uL 11/05/2024 5:50 AM CDT [facility] ABS. LYMPHOCYTES 3.72 0.80 - 4.70 x10'3/uL 11/05/2024 5:50 AM CDT [facility] ABS. MONOCYTES 1.25 0.00 - 1.50 x10'3/uL 11/05/2024 5:50 AM CDT [facility] ABS. EOSINOPHILS 0.63(H) 0.00 - 0.40 x10'3/uL 11/05/2024 5:50 AM CDT [facility] ABS. BASOPHILS 0.12 0.00 - 0.20 x10'3/uL 11/05/2024 5:50 AM CDT [facility] ABS. IMMATURE GRANULOCYTES 0.07(H) 0.00 - 0.03 x10'3/uL 11/05/2024 5:50 AM CDT [facility] ABS. NUCLEATED RBC'S 0.00 0.00 - 0.01 x10'3/uL 11/05/2024 5:50 AM CDT [facility] 11/05/2024 5:41 AM CDT us Yvette Cunningham MD LABORATORY Final Result Performing Organization Address City/State/[facility] Co de Phone Number [facility] [place] [address], * MRI LUMB SPINE WO CON (11/03/2024 10:00 AM CDT) Anatomical Region Laterality Modality Spine Magnetic Resonan ce 11/03/2024 10:0 0 AM CDT Impressions 11/03/2024 10:03 AM CDT IMPRESSION: Mild to moderate multilevel lumbar spondylosis greatest at L4-5, as described above. Ordered By: BEULAH PARRA Interpreted By: Nate Aldridge MD, 11/03/2024 10:00 AM Narrative 11/03/2024 10:03 AM CDT [address] [place] [address] Examination: MRI LUMB SPINE WO CON, 11/03/2024 10:00 AM. Technique: Multiplanar multisequence magnetic resonance images of the lumbar spine were obtained without intravenous contrast. Clinical history: Lumbar radiculopathy Comparison: MRI lumbar spine 10/07/2023 Findings: There are 5 nonrib-bearing lumbar-type vertebral bodies. Lumbar vertebral bodies and facets are well aligned otherwise. There is 0.4 cm of anterolisthesis of L4 on L5. The conus medullaris terminates at L1, normal. There is a normal distribution of the cauda equina within the thecal sac. No abnormal prevertebral or paraspinal soft tissue swelling. Small bilateral facet joint effusions at L4-5. L1-2: No significant spinal canal or neural foraminal stenosis. L2-3: No significant spinal canal stenosis. Moderate facet hypertrophy. Mild right neural foraminal stenosis. No left neural foraminal stenosis. L3-4: Disc bulge impressing the ventral thecal sac. Moderate facet hypertrophy. Mild bilateral neural foraminal stenosis. L4-5: Disc bulge impressing the ventral thecal sac. Moderate to severe spinal canal stenosis. Severe left lateral recess narrowing. Marked facet hypertrophy. Mild to moderate left neural foraminal stenosis. Moderate right neural foraminal stenosis. L5-S1: No significant spinal canal stenosis. Moderate facet hypertrophy. No significant neural foraminal stenosis. Procedure Note Nate Aldridge MD - 11/03/[address] [place] [address] Examination: MRI LUMB SPINE WO [facility], 11/03/2024 10:00 AM. Technique: Multiplanar multisequence magnetic resonance images of thelumbar spine were obtained without intravenous contrast. Clinical history: Lumbar radiculopathy Comparison: MRI lumbar spine 10/07/2023 Findings: There are 5 nonrib-bearing lumbar-type vertebral bodies. Lumbar vertebralbodies and facets are well aligned otherwise. There is 0.4 cm ofanterolisthesis of L4 on L5. The conus medullaris terminates at L1,normal. There is a normal distribution of the cauda equina within thethecal sac. No abnormal prevertebral or paraspinal soft tissue swelling.Small bilateral facet joint effusions at L4-5. L1-2: No significant spinal canal or neural foraminal stenosis. L2-3: No significant spinal canal stenosis. Moderate facet hypertrophy.Mild right neural foraminal stenosis. No left neural foraminal stenosis. L3-4: Disc bulge impressing the ventral thecal sac. Moderate facethypertrophy. Mild bilateral neural foraminal stenosis. L4-5: Disc bulge impressing the ventral thecal sac. Moderate to severespinal canal stenosis. Severe left lateral recess narrowing. Marked facethypertrophy. Mild to moderate left neural foraminal stenosis. Moderateright neural foraminal stenosis. L5-S1: No significant spinal canal stenosis. Moderate facet hypertrophy.No significant neural foraminal stenosis. IMPRESSION: Mild to moderate multilevel lumbar spondylosis greatest at L4-5, asdescribed above. Ordered By: BEULAH PARRA Interpreted By: Nate Aldridge MD, 11/03/2024 10:00 AM us Beulah Parra MD MRI Final Resul t * (ABNORMAL) BASIC METABOLIC PANEL (11/03/2024 5:32 AM CDT) SODIUM S/P/B 140 136 - 145 MMOL/L 11/03/2024 6:17 AM CDT [facility] POTASSIUM S/P/B 4.1 3.5 - 5.1 MMOL/L 11/03/2024 6:17 AM CDT [facility] CHLORIDE S/P/B 105 98 - 107 MMOL/L 11/03/2024 6:17 AM CDT [facility] CO2 27.9 21.0 - 32.0 MMOL/L 11/03/2024 6:17 AM T [facility] GLUCOSE 211(H) 70 - 99 MG/DL 11/03/2024 6:17 AM CDT [facility] Comment: FASTING GLUCOSE 100 TO 125 MG/DL IS CONSISTENT WITH IMPAIRED FASTING GLUCOSE. FASTING GLUCOSE >125 MG/DL IS CONSISTENT WITH DIABETES. RANDOM GLUCOSE >200 MG/DL WITH HYPERGLYCEMIC SYMPTOMS IS CONSISTENT WITH DIABETES. PER ADA GUIDELINES BUN 7 6 - 24 MG/DL 11/03/2024 6:17 AM CDT [facility] CREATININE S/P/B 0.96 0.55 - 1.02 MG/DL 11/03/2024 6:17 AM CDT [facility] CALCIUM S/P/B 9.3 8.4 - 10.5 MG/DL 11/03/2024 6:17 AM CDT [facility] ANION GAP 7.1 5.0 - 15.0 MMOL/L 11/03/2024 6:17 AM CDT [facility] OSMOLALITY (CALC) 294 MOSM/KG 025 6:17 AM CDT [facility] Comment:REFERENCE RANGE NOT ESTABLISHED GFR ESTIMATE 67(L) >89 ML/MIN/1. 73 M2 11/03/2024 6:17 AM CDT [facility] GFR NOTES GFR REFERENCE S: 11/03/2024 6:17 AM CDT [facility] Comment: THE ESTIMATED GFR [...] ml/min/1.73 m2 G5,KIDNEY FAILURE: <15 ml/min/1.73 m2 11/03/2024 5:32 AM CDT us Beulah Parra MD LABORATORY Final Resul t [facility] [address] [place] [address], * (ABNORMAL) URINALYSIS (11/02/2024 3:46 PM CDT) Only the most recent of3 resultswithin the time period is included. COLOR (U) YELLOW 11/02/2024 4:08 PM CDT [facility] TRANSPARENCY CLEAR 11/02/2024 4:08 PM CDT [facility] SPECIFIC GRAVITY (U) 1.030(H) 1.000 - 1.025 11/02/2024 4:08 PM CDT [facility] Comment:EQUAL TO OR GREATER THAN U PH 5.5 5.0 - 8.0 11/02/2024 4:08 PM CDT [facility] LEUKOCYTES (U) NEGATIVE NEGATIVE 11/02/2024 4:08 PM CDT [facility] NITRITES NEGATIVE NEGATIVE 11/02/2024 4:08 PM CDT [facility] PROTEIN RANDOM (U) 2+(A) NEGATIVE 11/02/2024 4:08 PM CDT [facility] GLUCOSE (U) TRACE(A) NEGATIVE 11/02/2024 4:08 PM CDT [facility] KETONES MG/DL (U) 2+(A) NEGATIVE 11/02/2024 4:08 PM CDT [facility] UROBILINOGEN 0.2 <1.0 EU/DL 11/02/2024 4:08 PM CDT [facility] BLOOD (U) NEGATIVE NEGATIVE 11/02/2024 4:08 PM CDT [facility] WBC/HPF OCCASIONAL(A ) 0 - 5 /HPF 11/02/2024 4:08 PM CDT [facility] RBC/HPF NONE SEEN(A) 0 - 5 /HPF 11/02/2024 4:08 PM CDT [facility] EPI/LPF 1+ /LPF 11/02/2024 4:08 PM CDT [facility] BACTERIA (U) TRACE /HPF 11/02/2024 4:08 PM CDT [facility] BILIRUBIN CONF ICTO (U) NEGATIVE NEGATIVE 11/02/2024 4:08 PM CDT [facility] URINE SPECIMEN OBTAINED BY CLEAN CATCH PROCEDURE / Unknown 11/02/2024 3:46 PM CDT us Beulah Parra MD URINE ORDERABLES Final Resu lt [facility] [employer] [place] [address], * CULTURE URINE (11/02/2024 3:46 PM CDT) Only the most recent of2 resultswithin the time period is included. SPEC DESCRIPTION URINE CLEAN CATCH 11/02/2024 3:46 PM CDT [facility] SPECIAL REQUESTS NO SPECIAL REQUEST 11/02/2024 3:46 PM CDT [facility] CULTURE RESULT FEW CONTAMINANTS 09/2024 6:36 AM CDT [facility] URINE SPECIMEN OBTAINED BY CLEAN CATCH PROCEDURE / Unknown 11/02/2024 3:46 PM CDT 11/02/2024 6:43 PM CDT us Beulah Parra MD MICROBIOLOGY - GENERAL ORDE [facility] Final Result [facility] [address] [place] [address], [place] [phone] [id number] [facility] [employer] [place] [address], * XR CHEST PORTABLE (11/02/2024 3:00 PM CDT) Anatomical Region Laterality Modality Chest Radiographic Keshia ging 11/02/2024 3:15 PM CDT Impressions 11/02/2024 3:15 PM CDT IMPRESSION: No radiographic evidence of active chest disease. Ordered By: BEULAH PARRA Interpreted By: Escobar Hernandez MD, 11/02/2024 3:15 PM Narrative 11/02/2024 3:15 PM [address]T [address] [place] [address] Examination: XR CHEST PORTABLE Exam time: 11/02/2024 2:54 PM Clinical history: Hypoxia Comparison: 04/22/2024 AP chest Technique: AP upright view Findings: Image obtained at mildly low lung volumes. Metallic density cardiac loop recorder projects lateral aspect left mid hemithorax. Cardiac silhouette and pulmonary vasculature are within normal limits. Lungs appear clear. No evidence of pleural effusion. No evidence of pneumothorax. Procedure Note Escobar Hernandez MD - 11/02/[address] [place] [address] Examination: XR CHEST PORTABLE Exam time: 11/02/2024 2:54 PM Clinical history: Hypoxia Comparison: 04/22/2024 AP chest Technique: AP upright view Findings: Image obtained at mildly low lung volumes. Metallic densitycardiac loop recorder projects lateral aspect left mid hemithorax. Cardiacsilhouette and pulmonary vasculature are within normal limits. Lungsappear clear. No evidence of pleural effusion. No evidence ofpneumothorax. IMPRESSION: No radiographic evidence of active chest disease. Ordered By: BEULAH PARRA Interpreted By: Escobar Hernandez MD, 11/02/2024 3:15 PM Beulah Parra MD GENERAL IMAGING Final Resul t * CULTURE, BACTERIA, BLOOD (11/02/2024 2:24 PM CDT) Only the most recent of2 resultswithin the time period is included. SPEC DESCRIPTION BLOOD 11/02/2024 1:21 PM CDT [facility] SPECIAL REQUESTS NO SPECIAL REQUEST 11/02/2024 1:21 PM CDT [facility] CULTURE RESULT NO GROWTH 5 DAYS 11/07/2024 7:53 PM CDT [facility] BLOOD SPECIMEN OBTAINED FOR BLOOD CULTURE / Unknown 11/02/2024 2:24 PM CDT 11/02/2024 2:25 PM CDT us Beulah Parra MD MICROBIOLOGY - GENERAL ORDE [facility] Final Result [facility] [address] [place] [address], [id number] [facility] [address] [place] [address], [place] [phone] * (ABNORMAL) Blood gas, venous (11/02/2024 2:16 PM CDT) PH VENOUS 7.31(L) 7.32 - 7.43 11/02/2024 2:28 PM CDT [facility] PCO2 VENOUS 58.0 MMHG 11/02/2024 2:28 PM CDT [facility] Comment:NO REFERENCE RANGE H BEEN ESTABLISHED PO2 VENOUS <30.0 MM HG 11/02/2024 2:28 PM CDT [facility] Comment:NO REFERENCE RANGE H BEEN ESTABLISHED TOTAL CO2 VENOUS 31.0(H) 22.0 - 26.0 MMOL/L 11/02/2024 2:28 PM CDT [facility] BASE EXCESS VENOUS 1.6 MMOL/L 11/02/2024 2:28 PM CDT [facility] Comment:NO REFERENCE RANGE H BEEN ESTABLISHED O2 SAT VENOUS NOT CALCULATED % 025 2:28 PM CDT [facility] Comment:NO REFERENCE RANGE H BEEN ESTABLISHED BICARB VENOUS 29.2(H) 22.0 - 29.0 MMOL/L 11/02/2024 2:28 PM CDT [facility] O2 ADMIN VENOUS 2L 2:16 PM CDT [facility] 11/02/2024 2:16 PM CDT us Beulah Parra MD LABORATORY Final Resul t [facility] [address] [place] [address], * CT HEAD WO CON (11/02/2024 1:59 PM CDT) Only the most recent of2 resultswithin the time period is included. Anatomical Region Laterality Modality Head Computed Tomogra phy 11/02/2024 2:11 PM CDT Impressions 11/02/2024 2:13 PM CDT IMPRESSION: 1) No acute intracranial abnormality is demonstrated. Ordered By: BEULAH PARRA Interpreted By: Adolfo Saunders MD, 11/02/2024 2:11 PM Narrative 11/02/2024 2:13 PM [address]T [address] [place] [address] Examination: CT HEAD WO CON Exam time: 11/02/2024 1:58 PM Clinical history: Altered mental status, frequent falls Comparison: 10/08/2024 Technique: Axial images obtained from level of foramen magnum to the vertex without contrast using low-dose CT technique. Sagittal and coronal reconstruction. Findings: Normal craniovertebral junction. Ventricles are mildly dilated in symmetrical fashion. Extra-axial CSF spaces are within normal limits. Mild diffuse atherosclerotic vascular calcifications are noted. No evidence of acute intracranial hemorrhage. There is no evidence of a focal intracranial mass lesion. No abnormal extra- axial fluid collection. There is a chronic area of encephalomalacia involving the left anterior frontal lobe, left insula and external capsule similar to previous study. There is no acute regional edema, mass effect or midline shift. The sella and CP angle regions are unremarkable. Mastoid air cells are clear bilaterally. No evidence of acute depressed skull fracture. Procedure Note Adolfo Saunders MD - 11/02/[address] [place] [address] Examination: CT HEAD WO CON Exam time: 11/02/2024 1:58 PM Clinical history: Altered mental status, frequent falls Comparison: 10/08/2024 Technique: Axial images obtained from level of foramen magnum to thevertex without contrast using low-dose CT technique. Sagittal and coronalreconstruction. Findings: Normal craniovertebral junction. Ventricles are mildly dilatedin symmetrical fashion. Extra-axial CSF spaces are within normal limits.Mild diffuse atherosclerotic vascular calcifications are noted. Noevidence of acute intracranial hemorrhage. There is no evidence of a focal intracranial mass lesion. No abnormalextra-axial fluid collection. There is a chronic area of encephalomalaciainvolving the left anterior frontal lobe, left insula and external capsulesimilar to previous study. There is no acute regional edema, mass effect or midline shift. The sellaand CP angle regions are unremarkable. Mastoid air cells are clearbilaterally. No evidence of acute depressed skull fracture. IMPRESSION: 1) No acute intracranial abnormality is demonstrated. Ordered By: BEULAH PARRA Interpreted By: Adolfo Saunders MD, 11/02/2024 2:11 PM us Beulah Parra MD CT Final Resul t * ECG 12 lead (11/02/2024 1:51 PM CDT) 11/02/2024 1:51 PM CDT Narrative [facility] - 11/03/2024 5:11 AM CDT [address] 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: : [id number] Requested By: BEULAH PARRA Order Number: [id number] Reading MD: Yang Blanco Measurements Intervals [place] Rate: 104 P: 30 OR: 132 QRS: 6 QRSD: 78 T: 39 QT: 352 QTc: 464 Interpretive Statements SINUS TACHYCARDIA MINIMAL VOLTAGE CRITERIA FOR LVH, CONSIDER NORMAL VARIANT NONSPECIFIC ST & T-WAVE ABNORMALITY ABNORMAL RHYTHM ECG us Beulah Parra MD ECG ORDERABLES Final Resul t Performing Organization Address City/[facility]/ZIP Co de Phone Number [facility] * LACTIC ACID W REFLEX (SEPSIS) (11/02/2024 1:46 PM CDT) LACTIC ACID VENOUS 2.0 0.4 - 2.0 MMOL/L 11/02/2024 3:04 PM CDT [facility] 11/02/2024 1:46 PM CDT us Beulah Parra MD LABORATORY Final Resul t Performing Organization Address [facility] Co de Phone Number [facility] [address] [place] [address], * TSH W/REFLEX (11/02/2024 1:46 PM CDT) TSH 1.324 0.358 - 3.740 uIU/ML 11/02/2024 3:06 PM CDT [facility] Comment: FREE T4 NOT INDICATED ASSAY PERFORMED BY CHEMILUMINESCENT IMMUNOASSAY METHODOLOGY USING SIEMENS DIMENSION REAGENT. PATIENT RESULTS DETERMINED BY ASSAYS FROM DIFFERENT MANUFACTURERS AND/OR BY DIFFERENT METHODS MAY NOT BE COMPARABLE. 11/02/2024 1:46 PM CDT us Beulah Parra MD LABORATORY Final Resul t Performing Organization Address [facility] Co de Phone Number [facility] [address] [place] [address], [place] [phone] * PRO-BRAIN NATRIURETIC PEPTIDE (11/02/2024 1:46 PM CDT) PRO-B TYPE NATRIURETIC PEPTIDE 92 <125 PG/ML 11/02/2024 3:10 PM CDT [facility] Comment: CUT POINTS ESTABLISHED BY [employer]NATIONAL [employer] ON NT PROBNP (ICON) STUDY (2006). AGE INDEPENDENT: <300 PG/ML HAS A 99% NEGATIVE PREDICTIVE VALUE FOR EXCLUDING ACUTE CHF <50 YEARS: >450 PG/ML IS CONSISTENT WITH ACUTE CHF 50-75 YEARS: >900 PG/ML IS CONSISTENT WITH ACUTE CHF >75 YEARS: >1800 PG/ML IS CONSISTENT WITH ACUTE CHF IN PATIENTS WITH RENAL INSUFFICIENCY (GFR <60), >1200 PG/ML YIELDS A DIAGNOSTIC SENSITIVITY AND SPECIFICITY OF 89% AND 72% FOR ACUTE CHF. 11/02/2024 1:46 PM CDT us Beulah Parra MD LABORATORY Final Resul t Performing Organization Address City/[facility]/ZIP Co de Phone Number [facility] [address] [place] [address], * TROPONIN, QUANT (11/02/2024 1:46 PM CDT) TROPONIN I HIGH SENSITIVITY 10 0 - 51 ng/L 11/02/2024 3:10 PM CDT [facility] 11/02/2024 1:46 PM CDT us Beulah Parra MD LABORATORY Final Resul t Performing Organization Address [facility] Co de Phone Number [facility] [address] [place] [address], [place] [phone] * (ABNORMAL) AMMONIA (11/02/2024 1:46 PM CDT) AMMONIA <10(L) 11 - 32 UMOL/L 11/02/2024 2:52 PM CDT [facility] 11/02/2024 1:46 PM CDT us Beulha Parra MD LABORATORY Final Resul t Performing Organization Address City/[facility]/ZIP Co de Phone Number [facility] [address] [place] [address], [place] [phone] * (ABNORMAL) MAGNESIUM (11/02/2024 1:46 PM CDT) MAGNESIUM 1.7(L) 1.8 - 2.4 MG/DL 11/02/2024 3:10 PM CDT [facility] 11/02/2024 1:46 PM CDT us Beulah Parra MD LABORATORY Final Resul t Performing Organization Address City/[facility]/ZIP Co de Phone Number [facility] [address] [place] [address], * (ABNORMAL) LIPASE (11/02/2024 1:46 PM CDT) LIPASE 13(L) 16 - 77 UNITS/L 11/02/2024 3:10 PM CDT [facility] 11/02/2024 1:46 PM CDT us Beulah Parra MD LABORATORY Final Resul t Performing Organization Address [facility] [place] [address], * (ABNORMAL) SALICYLATE (11/02/2024 1:46 PM CDT) Only the most recent of2 resultswithin the time period is included. SALICYLATES 1.8(L) 2.8 - 20.0 MG/DL 11/02/2024 3:06 PM CDT [facility] 11/02/2024 1:46 PM CDT us Beulah Parra MD LABORATORY Final Resul t Performing Organization Address City/[facility] Co de Phone Number [facility] [address] [place] [address], * ETHANOL (11/02/2024 1:46 PM CDT) Only the most recent of2 resultswithin the time period is included. ALCOHOL S/P/B <0.003 <0.003 G/DL 11/02/2024 3:08 PM CDT [facility] 11/02/2024 1:46 PM CDT Beulah Parra MD LABORATORY Final Resul t Performing Organization Address [facility]/ZIP Co de Phone Number [facility] [address] [place] [address], * CK (CPK) (11/02/2024 1:46 PM CDT) CPK 75 26 - 192 U/L 11/02/2024 3:10 PM CDT [facility] 11/02/2024 1:46 PM CDT Beulah Parra MD LABORATORY Final Resul t Performing Organization Address [facility] Co de Phone Number [facility] [address] [place] [address], [place] [phone] * (ABNORMAL) ACETAMINOPHEN (11/02/2024 1:46 PM CDT) Only the most recent of2 resultswithin the time period is included. ACETAMINOPHEN S/P/B 2.5(L) 10.0 - 30.0 MCG/ML 11/02/2024 3:06 PM CDT [facility] 11/02/2024 1:46 PM CDT us Beulah Parra MD LABORATORY Final Resul t Performing Organization Address City/[facility]/ZIP Co de Phone Number [facility] [address] [place] [address], [place] [phone] * THYROID STIM HORMONE, TSH (10/02/2024 12:42 PM CDT) TSH 1.144 0.358 - 3.740 uIU/ML 10/02/2024 1:21 PM CDT [facility] Comment: ASSAY PERFORMED BY CHEMILUMINESCENT IMMUNOASSAY METHODOLOGY USING SIEMENS DIMENSION REAGENT. PATIENT RESULTS DETERMINED BY ASSAYS FROM DIFFERENT MANUFACTURERS AND/OR BY DIFFERENT METHODS MAY NOT BE COMPARABLE. 10/02/2024 12:4 2 PM CDT us Mike Dunbar MD LABORATORY Final Result Performing Organization Address [facility] Co de Phone Number [facility] [address] [place] [address], * CORONAVIRUS (COVID-19) ANTIGEN (10/02/2024 12:30 PM CDT) CORONAVIRUS ANTIGEN IA NEGATIVE NEGATIVE 10/02/2024 1:17 PM CDT [facility] Comment: NEGATIVE RESULTS DO NOT RULE OUT SARS-COV-2 INFECTION AND SHOULD NOT BE USED THE SOLE BASIS FOR TREATMENT OR PATIENT MANAGEMENT DECISIONS, INCLUDING INFECTION CONTROL DECISIONS. NEGATIVE RESULTS SHOULD BE CONSIDERED IN THE CONTEXT OF A PATIENT'S RECENT EXPOSURES, HISTORY AND THE PRESENCE OF CLINICAL SIGNS AND SYMPTOMS CONSISTENT WITH COVID 19. THIS TEST HAS BEEN AUTHORIZED BY THE FDA UNDER AN EMERGENCY USE AUTHORIZATION (EUA) FOR USE BY AUTHORIZED LABORATORIES. SPECIMEN TYPE NASAL 10/02/2024 12:32 PM CDT [facility] NASAL NASAL STRUCTURE / Unknown 10/02/2024 12:30 PM CDT us Mike Dunbar MD MICROBIOLOGY - GENERAL ORDERA BLES Final Result Performing Organization Address [facility]/ZIP Co de Phone Number [facility] [address] [place] [address], * (ABNORMAL) DRUG SCREEN RAPID (10/02/2024 12:30 PM CDT) CANNABINOIDS SCREEN (U) POSITIVE(A) NEGATIVE 10/02/2024 1:52 PM CDT [facility] PHENCYCLIDINE PCP (U) NEGATIVE NEGATIVE 10/02/2024 1:52 PM CDT [facility] COCAINE METABOLITES (U) NEGATIVE NEGATIVE 10/02/2024 1:52 PM CDT [facility] METHAMPHETAMINE SCREEN (U) NEGATIVE NEGATIVE 10/02/2024 1:52 PM CDT [facility] OPIATE SCREEN (U) NEGATIVE NEGATIVE 025 1:52 PM CDT [facility] AMPHETAMINE SCREEN (U) POSITIVE(A) NEGATIVE 10/02/2024 1:52 PM CDT [facility] BENZODIAZEPINES SCREEN (U) POSITIVE(A) NEGATIVE 10/02/2024 1:52 PM CDT [facility] TRICYCLIC ANTIDEPRESSANT SCREEN (U) POSITIVE(A) NEGATIVE 10/02/2024 1:52 PM CDT [facility] [facility] METHADONE (U) NEGATIVE NEGATIVE 10/02/2024 1:52 PM CDT [facility] BARBITURATES SCREEN (U) NEGATIVE NEGATIVE 10/02/2024 1:52 PM CDT [facility] OXYCODONE SCREEN (U) NEGATIVE NEGATIVE 10/02/2024 1:52 PM CDT [facility] URINE TOX COMMENT THIS TEST METHODOLOGY IS DESIGNED AND OFFERED A RAPID TURNAROUND, QUALITATIVE SCREENING PROCEDURE TO AID IN THE IMMEDIATE MEDICAL ASSESSMENT OF PATIENTS SUSPECTED OF SUBSTANCE ABUSE. 10/02/2024 12:44 PM CDT [facility] Comment: CLINICAL CONSIDERATION AND PROFESSIONAL JUDGMENT MUST BE APPLIED TO ANY DRUG OF ABUSE TEST RESULT, BOTH POSITIVE AND NEGATIVE. CONFIRMATORY QUANTITATIVE RESULTS ARE AVAILABLE THROUGH OUR REFERENCE LABORATORY. URINE SPECIMEN / Unknown 10/02/2024 12:30 PM CDT us Mike Dunbar MD URINE ORDERABLES Final Result [facility] [address] [place] [address], * XR HIP LT 2V (09/14/2024 10:06 AM CDT) Anatomical Region Laterality Modality Hip Radiographic Keshia ging 09/14/2024 10:2 8 AM CDT Impressions 09/14/2024 10:29 AM CDT IMPRESSION: No acute findings. Stable degenerative changes. Ordered By: YVETTE CUNNINGHAM Interpreted By: Pk Tadeo MD, 09/14/2024 10:28 AM Narrative 09/14/2024 10:29 AM CDT [address] [place] [address] Examination: Left hip. Exam time: 0943 hours. Clinical history: Pain. Comparison: Single view abdomen, 04/24/2024 ([facility]). Technique: Two views. Findings: No fracture, dislocation or other acute bony abnormality is identified. There are stable moderate degenerative changes manifested by joint space narrowing and acetabular osteophyte formation. No other significant bone or joint abnormality is noted. The soft tissues are unremarkable. Procedure Note Pk Tadeo MD - 09/14/[address] [place] [address] Examination: Left hip. Exam time: 0943 hours. Clinical history: Pain. Comparison: Single view abdomen, 04/24/2024 ([facility]). Technique: Two views. Findings: No fracture, dislocation or other acute bony abnormality isidentified. There are stable moderate degenerative changes manifested byjoint space narrowing and acetabular osteophyte formation. No othersignificant bone or joint abnormality is noted. The soft tissues areunremarkable. IMPRESSION: No acute findings. Stable degenerative changes. Ordered By: YVETTE CUNNINGHAM Interpreted By: Pk Tadeo MD, 09/14/2024 10:28 AM us Yvette Cunningham MD GENERAL IMAGING Final Result * (ABNORMAL) HEMOGLOBIN, GLYCOSYLATED (04/11/2024 11:15 PM FUR DRESSER) HGB A1C 7.0(H) <5.7 % 04/12/2024 12:08 AM FUR DRESSER [facility] ESTIMATED AVG GLUCOSE 154(H) 74 - 114 MG/DL 04/12/2024 12:08 AM FUR DRESSER [facility] 04/11/2024 11:1 5 PM FUR DRESSER Maris Cardenas MD LABORATORY Final Result Performing Organization Address [facility] Co de Phone Number [facility] [address] [place] [address], [id number] * HEPATITIS PANEL,ACUTE (08/17/2023 6:53 PM CDT) HEPATITIS B SURFACE AG NON-REACT MYCHAL NON-REACT MYCHAL 08/17/2023 8:17 PM CDT [facility] Comment:HBsAg NOT DETECTED. HEP B CORE IGM NON-REACT MYCHAL NON-REACT MYCHAL 08/17/2023 8:17 PM CDT [facility] Comment: IgM ANTI HBc NOT DETECTED. DOES NOT EXCLUDE THE POSSIBILITY OF EXPOSURE TO OR INFECTION WITH HBV. NO RETEST REQUIRED. HIGH DOSES OF BIOTIN MAY INTERFERE WITH THIS TEST RESULT. CORRELATION TO CLINICAL HISTORY AND PRESENTATION RECOMMENDED. HAV IGM NON-REACT MYCHAL NON-REACT MYCHAL 08/17/2023 8:17 PM CDT [facility] Comment: IgM ANTI HAV NOT DETECTED. DOES NOT EXCLUDE THE POSSIBILITY OF EXPOSURE TO OR INFECTION WITH HAV. LEVELS OF IgM ANTI HAV MAY BE BELOW THE CUTOFF IN EARLY INFECTION. HEPATITIS C AB NON-REACT MYCHAL NON-REACT MYCHAL 08/17/2023 8:17 PM CDT [facility] Comment: ANTIBODIES TO HCV NOT DETECTED. DOES NOT EXCLUDE THE POSSIBILITY OF EXPOSURE TO HCV. 08/17/2023 6:53 PM CDT Wil Alexander NP LABORATORY Final Resul t Performing Organization Address [facility] Co de Phone Number [facility] [address] [place] [address], [phone] * MG SCREENING W SREE JUAN DIGI (03/22/2023 10:16 AM CDT) Anatomical Region Laterality Modality Breast Bilateral Mammography 03/22/2023 10:5 7 AM CDT Narrative 03/22/2023 10:58 AM CDT Examination: Digital screening mammogram with CAD. Clinical history: Asymptomatic patient presents for routine screening. Comparison: 12/21/2021, 06/26/2019, 12/17/2012, 11/29/2011. Technique: Bilateral digital mammograms. The exam was interpreted with the use of a computer-aided detection (CAD) system. Additional 3-D tomosynthesis images were acquired. Tissue density: The breast tissue contains scattered fibroglandular densities. Findings: The breast tissue contains scattered fibroglandular densities. Benign-appearing calcification noted. Stable small sharply circumscribed rounded mass in the lower inner quadrant on the right is likely a cyst. Implanted loop recorder on the left was present in 2021. No suspicious mass, microcalcification or area of architectural distortion can be identified. From a mammographic standpoint, routine followup in one year would seem adequate. IMPRESSION: No suspicious change since the previous exams. Recommendation: 1: Routine Screening Bilateral in 1 Year Assessment: ACR BI-RADS 2 - BENIGN FINDING(S) Ordered By: ALETHEA ROBERTO Interpreted By: Pk Tadeo MD, 03/22/2023 10:57 AM us Alethea Roberto APNP MAMMO Final Resul t from Last 3 Months or Most Recently Relevant to Health Maintenance Insurance [facility] Advance Directives * Full Code (Latest Code Status on File) Date Activated Date Inactivated Comments 11/05/2024 8:43 AM 11/05/2024 3:48 PM * Full Code Date Activated Date Inactivated Comments 11/03/2024 8:44 AM 11/03/2024 8:45 AM * Full Code Date Activated Date Inactivated Comments 11/02/2024 5:32 PM 11/03/2024 8:44 AM * Full Code Date Activated Date Inactivated Comments 04/28/2024 5:41 PM 04/29/2024 1:08 PM * Full Code Date Activated Date Inactivated Comments 04/11/2024 1:05 AM 04/28/2024 3:59 PM Care Teams Choral Director Relationship Specialty Start Date End Date Yvette Cunningham MD [address] [place] [id number] PCP - General FAMILY PRACTICE 07/08/24 Alethea Roberto APNP [address] [place] [address] Nurse Practitioner NURSE PRACTITIONER 03/09/21
--- OUTSIDE RECORDS SUMMARY | 2024-12-14 07:49 | XMS_ITS | Referral Summary ---
Author Organization [facility] Address [address] [place] [address] Care Team Providers Care Pest Control Supervisor Name Role Phone Pardeep Alethea OROZCO Primary Care Provider [phone] Encounters Date Type Department Care Team Description 12/09/[address] [facility] Orthopaedic Surgery [address] [place] [phone] Goodwin Appointment Questions 12/09/2024 10:21 AM CDT - 12/09/2024 11:59 PM CDT Hospital Encounter [facility] ([facility]) [address] [place] [address] Discharge Disposition: Discharge to home or self care 12/09/2024 10:21 AM CDT - 12/09/2024 11:59 PM CDT Hospital Encounter [facility] ([facility]) [address] [place] [address] Discharge Disposition: Discharge to home or self care 12/09/2024 10:20 AM CDT - 12/09/2024 11:59 PM CDT Hospital Encounter [facility] ([facility]) [address] [place] [address] Discharge Disposition: Discharge to home or self care 12/09/2024 10:19 AM CDT - 12/09/2024 11:59 PM CDT Hospital Encounter [facility] ([facility]) [address] [place] [address] Discharge Disposition: Discharge to home or self care 12/09/2024 10:19 AM CDT - 12/09/2024 11:59 PM CDT Hospital Encounter [facility] ([facility]) [address] [place] [address] Discharge Disposition: Discharge to home or self care from Last 3 Months Allergies Active Allergy Reactions Criticality Noted Date [...] 05/11/2021 Assessment & Plan (05/01/2023 9:38 AM CLINICAL REHAB LIAISON): This is a chronic condition which is [...] a recent stroke. 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 No changes made to insulin pump. Assessment & Plan (06/28/2021 2:03 PM CLINICAL REHAB LIAISON): This is a chronic condition which is [...] pump. Assessment & Plan (05/11/2021 1:59 PM CLINICAL REHAB LIAISON): This is a chronic condition which is stable, controlled, uncontrolled with hyperglycemia, improving, but not at goal. Download reviewed. Type of insulin pump- [employer] 630G Pump settings : Basal 2units IC [...] 02/18/2017 Assessment & Plan (05/01/2023 9:38 AM CLINICAL REHAB LIAISON): This is a chronic condition which is [...] prescribed. Assessment & Plan (06/28/2021 2:03 PM CLINICAL REHAB LIAISON): This is a chronic condition which is at goal. Goal is less than 70. Personally reviewed lipid panel. [id number] on crestor. Encouraged to eat healthy, include fresh fruits and vegetables daily and avoid eating fried foods more than once per week. Encouraged to take medications as prescribed. Assessment & Plan (05/11/2021 1:12 PM CLINICAL REHAB LIAISON): This is a chronic condition which is [...] 02/18/2017 Assessment & Plan (05/01/2023 9:35 AM CLINICAL REHAB LIAISON): This is a chronic condition which is [...] eye exam. last dilated eye exam was [facility] in [place] Monofilament foot exam completed. protective senses intact [...] worsening and not at goal. Personally reviewed [id number] to 9% not at goal less than 7% Personally reviewed blood sugar -129, not at goal 80-180 Medication- Continue Medtronic insulin pump. continue Trulicity 3mg weekly Monitor blood sugar continuously with [employer] jennie 2 Encouraged annual eye exam. Monofilament [...] which is not at goal. Personally reviewed [id number] to 9% not at goal less than [...] CVA Assessment & Plan (06/28/2021 2:00 PM CLINICAL REHAB LIAISON): This is a chronic condition which is [...] CVA Assessment & Plan (05/11/2021 1:09 PM CLINICAL REHAB LIAISON): This is a chronic condition which is [...] scheduled Assessment & Plan (06/28/2021 2:04 PM CLINICAL REHAB LIAISON): Improving. Continue to see therapy as scheduled Assessment & Plan (05/11/2021 1:10 PM CLINICAL REHAB LIAISON): This is a chronic condition. Seeing speech therapy. Give extra time to allow her to get her words out Hypertension 02/18/2017 05/11/2021 Assessment & Plan (05/11/2021 1:11 PM CLINICAL REHAB LIAISON): This is a chronic condition which is [...] uit: 01/10/2020 Tobacco Cessation:Counseling Given: Not Answered Comments No Sex and Gender Information Value Date Recorded Sex Assigned at Not on file Legal Sex Female 4:58 PM CLINICAL REHAB LIAISON Gender Identity Not on file Sexual Orientation Not on file Last Filed Vital Signs Vital Sign Reading Time Taken Comments Blood Pressure 134/74 05/01/2023 8:59 AM CLINICAL REHAB LIAISON Pulse 68 12/07/2017 5:30 PM CDT Temperature 36.1 C (97 F) 12/07/2017 4:41 PM CDT Respiratory Rate 18 12/07/2017 5:30 PM CDT Oxygen Saturation 92% 12/07/2017 6:00 PM CDT Inhaled Oxygen Concentration - - Weight 82.2 kg (181 lb 3.2 oz) 05/01/2023 8:59 A M CLINICAL REHAB LIAISON Height 154.9 cm (5' 1) 05/01/2023 8:59 AM CLINICAL REHAB LIAISON Body Mass Index 34.24 05/01/2023 8:59 AM CLINICAL REHAB LIAISON Plan of Treatment Not on file Procedures Procedure Name Priority Date/Time Associated Diagnosis Comments XR TRANSFER OF OUTSIDE FILMS Routine 12/09/2024 10:[address] OUTSIDE REFERENCE Routine 12/09/2024 10:21 AM CDT NEURO MR OUTSIDE REFERENCE Routine 12/09/2024 10:20 AM CDT NEURO MR OUTSIDE REFERENCE Routine 12/09/2024 10:19 AM CDT NEURO MR OUTSIDE REFERENCE Routine 12/09/2024 10:19 AM CDT POCT HEMOGLOBIN A1C Routine 05/01/2023 9 :11 AM CLINICAL REHAB LIAISON Type 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, with long-term current use of insulin (HCC) DIABETIC EYE EXAM Routine 03/26/2023 COMPREHENSIVE METABOLIC PANEL Routine 12/19/2022 LIPID PANEL Routine 12/19/2022 ALBUMIN CREATININE RATIO, URINE Routine 12/19/2022 from Last 3 Months or Most Recently Relevant to Health Maintenance Results * XR Outside Reference (12/09/2024 10:21 AM CDT) Impressions [facility] - 12/09/2024 10:21 AM CDT These images are for Reference purposes only and have not been reviewed by [facility]iology. There will be no report generated by a [facility] Radiologist. Narrative [facility] - 12/09/2024 10:21 AM CDT EXAMINATION: Images For Reference Purposes Only us Walter Patel MD IMG XR PROCEDURES Fi nal Result [facility] * Neuro CT Outside Reference (12/09/2024 10:21 AM CDT) Impressions [facility] - 12/09/2024 10:21 AM CDT These images are for Reference purposes only and have not been reviewed by [facility]. There will be no report generated by a [facility] Radiologist. Narrative [facility] - 12/09/2024 10:21 AM CDT EXAMINATION: Images For Reference Purposes Only Walter Patel MD IMG CT PROCEDURES Fi nal Result Performing Organization Address [facility] de Phone Number [facility] * Neuro MR Outside Reference (12/09/2024 10:20 AM CDT) Impressions [facility] - 12/09/2024 10:20 AM CDT These images are for Reference purposes only and have not been reviewed by [facility]. There will be no report generated by a [facility] Radiologist. Narrative [facility] - 12/09/2024 10:20 AM CDT EXAMINATION: Images For Reference Purposes Only Walter Patel MD IMG MRI PROCEDURES F inal Result Performing Organization Address [facility] de Phone Number [facility] * Neuro MR Outside Reference (12/09/2024 10:19 AM CDT) Impressions [facility] - 12/09/2024 10:19 AM CDT These images are for Reference purposes only and have not been reviewed by [facility]. There will be no report generated by a [facility] Radiologist. Narrative [facility] - 12/09/2024 10:19 AM CDT EXAMINATION: Images For Reference Purposes Only Walter Patel MD IMG MRI PROCEDURES F inal Result Performing Organization Address [facility] de Phone Number [facility] * Neuro MR Outside Reference (12/09/2024 10:19 AM CDT) Impressions [facility] - 12/09/2024 10:19 AM CDT These images are for Reference purposes only and have not been reviewed by [facility]. There will be no report generated by a [facility] Radiologist. Narrative [facility] - 12/09/2024 10:19 AM CDT EXAMINATION: Images For Reference Purposes Only Walter Patel MD IMG MRI PROCEDURES F inal Result Performing Organization Address [facility]/ZIP Co de Phone Number [email or web address] * POCT hemoglobin A1c (05/01/2023 9:11 AM CLINICAL REHAB LIAISON) Hemoglobin A1C, POC 6.5 % Blood 05/01/2023 9:11 AM CLINICAL REHAB LIAISON Harleen Butler NP POINT OF CARE TEST ORDERABLES F inal Result * Diabetic Eye Exam (03/26/2023) 03/26/2023 Historical Provider HEALTH MAINTENANCE Final Result * Albumin Creatinine Ratio, Urine (12/19/2022) Pathologist [facility] SCRIBED Creatinine, Urine 54.6 - - - [facility] SCRIBED Microalbumin 12.1 - - - [facility] SCRIBED Microalb/Creat Ratio 22 [facility] Urine 12/19/2022 Result [facility] Historical Provider LAB URINE ORDERABLES Gauri l Result Performing Organization Address [facility] de Phone Number [facility] * Lipid panel (12/19/2022) SCRIBED Cholesterol, Total 138 - - - [facility] SCRIBED HDL 66 - - - [facility] SCRIBED LDL 46 - - - [facility] SCRIBED Triglycerides 157 - - - [facility] Blood 12/19/2022 Result [facility] Historical Provider LAB BLOOD ORDERABLES Gauri l Result Performing Organization Address [facility] Co de Phone Number [facility] * Comprehensive metabolic panel (12/19/2022) Pathologist [facility] SCRIBED Sodium 133 - - - mmol/L [...] - - [facility] SCRIBED eGFR in NonAfrican Armenian 51 - - - [facility] Blood 12/19/2022 us Historical Provider LAB BLOOD ORDERABLES Gauri napier Result [facility] from Last 3 Months or Most Recently Relevant to Health Maintenance Insurance [facility] [employer] [place] [employer] [place] Member Subscriber Plan / Payer ( fective 2017-Present) Name:Pravin Pompa Relation to Subscriber:Self Name:Pravin Pompa Payer ID:[id number] (NAIC) Type:BC OTHER Address: [address] [place] [id number] Care Teams Pest Control Supervisor Relationship Specialty Start Date End Date Alethea Roberto NP [address] [place] [address] PCP - General Family Medicine 05/01/23
--- OUTSIDE RECORDS SUMMARY | 2024-12-14 07:49 | XMS_ITS | Encounter Summary ---
Author Organization [facility] Address [address] [place] [address] Care Team Providers Care Line Person Name Role Phone Alethea Roberto Unavailable [phone] Alethea Roberto Primary Care Provider Yvette Cunningham MD Primary Care Provider [phone] Encounter Details Date Type Department Care Team (Late st Contact Info) Description 02/19/2022 Hepregen Message Enc [facility] [address], [address] [place] [address] Ericka Acosta, [facility] [address] [place] [address] [place] [address] Visit Follow Up Social History Tobacco Use [...] Sex Assigned at Female 06/16/2024 3:[address] CLEANER Legal Sex Female 10:13 AM CDT [...] AM PABLOT Kylie Nuñez RN Active * [place] Suicide Severity Rating Scale (Screener/Recent Self-Report) Question [...] Rule Out 04/10/2024 04/10/2024 04/10/2024 12:[address] CLEANER COVID-19 Rule Out 10/02/2024 10/02/2024 10/02/2024 1:17 PM CDT documented as of this encounter Care Teams Line Person Relationship Specialty Start Date End Date [place] [address] PCP - General NURSE PRACTITIONER 02/18/23 07/07/24 Yvette Cunningham MD [address] [place] [id number] PCP - General FAMILY PRACTICE 07/08/24 Alethea Roberto APNP [address] [place] [address] Nurse Practitioner NURSE PRACTITIONER 03/09/21 documented as of this encounter
--- OUTSIDE RECORDS SUMMARY | 2024-12-14 07:49 | XMS_ITS | Encounter Summary ---
Author Organization [facility] Address [address] [place] [address] Care Team Providers Care Surface Logging Systems Logger Name Role Phone Alethea Roberto Primary Care Provider Alethea Roberto Unavailable [phone] Alethea Roberto Primary Care Provider Yvette Cunningham MD Primary Care Provider [phone] Encounter Details Date Type Department Care Team (Late st Contact Info) Description 12/13/2020 BugBustert Message Enc [facility] [address], [address] [address] Jamil Lyons MD [address] [place], [place] [id number] Visit Follow Up Social History Tobacco Use [...] Sex Assigned at Female 06/16/2024 3:02 PM VP Legal Sex Female 10:13 AM CDT Gender [...] Rule Out 04/10/2024 04/10/2024 04/10/2024 12:09 PM VP COVID-19 Rule Out 10/02/2024 10/02/2024 10/02/2024 1:17 PM CDT documented as of this encounter Care Teams Surface Logging Systems Logger Relationship Specialty Start Date End Date Alethea Roberto APNP [address] [place] [address] PCP - General NURSE PRACTITIONER 05/06/20 03/08/21 Alethea Roberto APNP [address] [place] [address] PCP - General NURSE PRACTITIONER 02/18/23 07/07/24 Yvette Cunningham MD [address] [place] [address] PCP - General FAMILY PRACTICE 07/08/24 Alethea Roberto APNP [address] [place] [address] Nurse Practitioner NURSE PRACTITIONER 03/09/21 documented as of this encounter
--- OUTSIDE RECORDS SUMMARY | 2024-12-14 07:49 | XMS_ITS | Clinical Summary ---
Author Organization [facility] Address [address] [place] [address] Care Team Providers Care Quality Improvement Coordinator Name Role Phone Pardeep Alethea OROZCO Primary Care Provider [phone] Allergies Active Allergy Reactions Criticality Noted Date [...] 05/11/2021 Assessment & Plan (05/01/2023 9:38 AM ANTI TANK MISSILEMAN): This is a chronic condition which is [...] a recent stroke. 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 No changes made to insulin pump. Assessment & Plan (06/28/2021 2:03 PM ANTI TANK MISSILEMAN): This is a chronic condition which is [...] pump. Assessment & Plan (05/11/2021 1:59 PM ANTI TANK MISSILEMAN): This is a chronic condition which is [...] 02/18/2017 Assessment & Plan (05/01/2023 9:38 AM ANTI TANK MISSILEMAN): This is a chronic condition which is [...] prescribed. Assessment & Plan (06/28/2021 2:03 PM ANTI TANK MISSILEMAN): This is a chronic condition which is at goal. Goal is less than 70. Personally reviewed lipid panel. [id number] on crestor. Encouraged to eat healthy, include fresh fruits and vegetables daily and avoid eating fried foods more than once per week. Encouraged to take medications as prescribed. Assessment & Plan (05/11/2021 1:12 PM ANTI TANK MISSILEMAN): This is a chronic condition which is [...] 02/18/2017 Assessment & Plan (05/01/2023 9:35 AM ANTI TANK MISSILEMAN): This is a chronic condition which is [...] eye exam. last dilated eye exam was [facility] in [place] Monofilament foot exam completed. protective senses intact [...] worsening and not at goal. Personally reviewed [id number] to 9% not at goal less than 7% Personally reviewed blood sugar -129, not at goal 80-180 Medication- Continue Medtronic insulin pump. continue Trulicity 3mg weekly Monitor blood sugar continuously with [employer] jennie 2 Encouraged annual eye exam. Monofilament [...] which is not at goal. Personally reviewed C3s-yrixagelz to 9% not at goal less than [...] CVA Assessment & Plan (06/28/2021 2:00 PM ANTI TANK MISSILEMAN): This is a chronic condition which is [...] CVA Assessment & Plan (05/11/2021 1:09 PM ANTI TANK MISSILEMAN): This is a chronic condition which is [...] scheduled Assessment & Plan (06/28/2021 2:04 PM ANTI TANK MISSILEMAN): Improving. Continue to see therapy as scheduled Assessment & Plan (05/11/2021 1:10 PM ANTI TANK MISSILEMAN): This is a chronic condition. Seeing speech therapy. Give extra time to allow her to get her words out Hypertension 02/18/2017 05/11/2021 Assessment & Plan (05/11/2021 1:11 PM ANTI TANK MISSILEMAN): This is a chronic condition which is at goal Goal is <140/90 Personally reviewed labs. B/p - 128/66. Stable on lisinopril. Avoid caffeine, caffeine will raise blood pressure and excessive alcohol consumption. Monitor your weight and B/P. Encouraged to take medications as prescribed. Encounters Date Type Department Care Team Description 12/09/2024 10:21 AM CDT - 12/09/2024 11:59 PM CDT Hospital Encounter [facility] [address] [place] [phone] Discharge Disposition: Discharge to home or self care 12/09/2024 10:21 AM CDT - 12/09/2024 11:59 PM CDT Hospital Encounter [facility] ([facility]) [address] [place] [phone] Discharge Disposition: Discharge to home or self care 12/09/2024 10:20 AM CDT - 12/09/2024 11:59 PM CDT Hospital Encounter [facility] ([facility] [address] [place] [address] Discharge Disposition: Discharge to home or self care 12/09/2024 10:19 AM CDT - 12/09/2024 11:59 PM CDT Hospital Encounter [facility] ([facility]) [address] [place] [address] Discharge Disposition: Discharge to home or self care 12/09/2024 10:19 AM CDT - 12/09/2024 11:59 PM CDT Hospital Encounter [facility] ([facility]) [address] [place] [address] Discharge Disposition: Discharge to home or self care 12/09/2024 Telephone [facility] Orth[facility] Surgery [address] [place] [phone] Goodwin Appointment Questions from Last 3 Months Surgical History Surgery Date Site/Laterality Comments APPENDECTOMY [...] on file Legal Sex Female 4:58 PM ANTI TANK MISSILEMAN Gender Identity Not on file Sexual Orientation Not on file Obstetrics History Last Filed Vital Signs Vital Sign Reading Time Taken Comments Blood Pressure 134/74 05/01/2023 8:59 AM ANTI TANK MISSILEMAN Pulse 68 12/07/2017 5:30 PM CDT Temperature 36.1 C (97 F) 12/07/2017 4:41 PM CDT Respiratory Rate 18 12/07/2017 5:30 PM CDT Oxygen Saturation 92% 12/07/2017 6:00 PM CDT Inhaled Oxygen Concentration - - Weight 82.2 kg (181 lb 3.2 oz) 05/01/2023 8:59 A M ANTI TANK MISSILEMAN Height 154.9 cm (5' 1) 05/01/2023 8:59 AM ANTI TANK MISSILEMAN Body Mass Index 34.24 05/01/2023 8:59 AM ANTI TANK MISSILEMAN Plan of Treatment Health Maintenance Due Date Last Done Comments Cervical Cancer Screening 1965 Colon Cancer Screening-Colonoscopy [...] - 2023-2 5 season) 2024 09/06/2020, 08/09/2020 Breast Cancer Screening-Mammogram 03/22/2024 03/22/2023, 03/22/2023, 12/21/2021 Foot Exam 05/01/2024 05/01/2023, 01/02, 10/13/2021, Additional history exists Influenza Vaccine (#1) 2025 04/17/2021, 2019 Dilated Eye Exam 03/26/2025 03/26/2023, 12/29/2020 Procedures [...] HEMOGLOBIN A1C Routine 05/01/2023 9 :11 AM ANTI TANK MISSILEMAN Type 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, with long-term current use of insulin (HCC) DIABETIC EYE EXAM Routine 03/26/2023 COMPREHENSIVE METABOLIC PANEL Routine 12/19/2022 LIPID PANEL Routine 12/19/2022 ALBUMIN CREATININE RATIO, URINE Routine 12/19/2022 from Last 3 Months or Most Recently Relevant to Health Maintenance Results * XR Outside Reference (12/09/2024 10:21 AM CDT) Impressions [facility] - 12/09/2024 10:21 AM CDT These images are for Reference purposes only and have not been reviewed by [facility]. There will be no report generated by a [facility] Radiologist. Narrative [facility] - 12/09/2024 10:21 AM CDT EXAMINATION: Images For Reference Purposes Only us Walter Patel MD IMG XR PROCEDURES Fi nal Result [facility] * Neuro CT Outside Reference (12/09/2024 10:21 AM CDT) Impressions [facility] - 12/09/2024 10:21 AM CDT These images are for Reference purposes only and have not been reviewed by [facility]. There will be no report generated by a [facility] Radiologist. Narrative [facility] - 12/09/2024 10:21 AM CDT EXAMINATION: Images For Reference Purposes Only Walter Patel MD IMG CT PROCEDURES Fi nal Result Performing Organization Address [facility] de Phone Number [email or web address] * Neuro MR Outside Reference (12/09/2024 10:20 AM CDT) Impressions [facility] - 12/09/2024 10:20 AM CDT These images are for Reference purposes only and have not been reviewed by [facility]. There will be no report generated by a [facility] Radiologist. Narrative [facility] - 12/09/2024 10:20 AM CDT EXAMINATION: Images For Reference Purposes Only Walter Patel MD IMG MRI PROCEDURES F inal Result Performing Organization Address [facility] de Phone Number [email or web address] * Neuro MR Outside Reference (12/09/2024 10:19 AM CDT) Impressions [facility] - 12/09/2024 10:19 AM CDT These images are for Reference purposes only and have not been reviewed by [facility]. There will be no report generated by a [facility] Radiologist. Narrative [facility] - 12/09/2024 10:19 AM CDT EXAMINATION: Images For Reference Purposes Only Walter Patel MD IMG MRI PROCEDURES F inal Result Performing Organization Address [facility] de Phone Number [email or web address] * Neuro MR Outside Reference (12/09/2024 10:19 AM CDT) Impressions [facility] - 12/09/2024 10:19 AM CDT These images are for Reference purposes only and have not been reviewed by [facility]. There will be no report generated by a [facility] Radiologist. Narrative [facility] - 12/09/2024 10:19 AM CDT EXAMINATION: Images For Reference Purposes Only Walter Patel MD IMG MRI PROCEDURES F inal Result Performing Organization Address [facility] Co de Phone Number [email or web address] * POCT hemoglobin A1c (05/01/2023 9:11 AM ANTI TANK MISSILEMAN) Hemoglobin A1C, POC 6.5 % Blood 05/01/2023 9:11 AM ANTI TANK MISSILEMAN Result [facility] Harleen Butler NP POINT OF CARE TEST ORDERABLES F inal Result * Diabetic Eye Exam (03/26/2023) 03/26/2023 Result [facility] Historical Provider HEALTH MAINTENANCE Final Result * Albumin Creatinine Ratio, Urine (12/19/2022) SCRIBED Creatinine, Urine 54.6 - - - [facility] SCRIBED Microalbumin 12.1 - - - [facility] SCRIBED Microalb/Creat Ratio 22 [facility] Urine 12/19/2022 Result [facility] Historical Provider LAB URINE ORDERABLES Gauri l Result Performing Organization Address [facility] de Phone Number [facility] * Lipid panel (12/19/2022) SCRIBED Cholesterol, Total 138 - - - [facility] SCRIBED HDL 66 - - - [facility] SCRIBED LDL 46 - - - [facility] SCRIBED Triglycerides 157 - - - [facility] Blood 12/19/2022 Result [facility] Historical Provider LAB BLOOD ORDERABLES Gauri l Result Performing Organization Address [facility] Co de Phone Number [facility] * Comprehensive [...] - - [facility] SCRIBED eGFR in NonAfrican Uzbek 51 - - - [facility] Blood 12/19/2022 us Historical Provider LAB BLOOD ORDERABLES Gauri napier Result [facility] from Last 3 Months or Most Recently Relevant to Health Maintenance Insurance [facility] [employer] [place] [employer] [place] Care Teams Quality Improvement Coordinator Relationship Specialty Start Date End Date [place] [address] PCP - General Family Medicine 05/01/23
== END 2024-12-14 07:43 | disposition home or self-care (01) ==
LOC: CHSIMG 07:46
PROVIDERS: Visit Provider Orthopaedic Surgery
DX: S82.61XA Displaced fracture of lateral malleolus of right fibula, initial encounter for closed fracture (principal); M25.571 Pain in right ankle and joints of right foot
CPT/HCPCS: 73610

== ENCOUNTER 2024-12-23 00:13 | Emergency (ER) | payer BC, SELFPAY ==
[2024-12-23 00:13] VITALS: BP 148/68; PULSE 92; RESP 18; TEMP 36.6; O2SAT 96
--- OUTSIDE RECORDS SUMMARY | 2024-12-23 00:18 | XMS_ITS | Referral Summary ---
Author Organization [facility] Address [address] [place] [address] Care Team Providers Care Forensic Document Examiner Name Role Phone Alethea Roberto ERNESTO Primary Care Provider Encounters Date Type Department Care Team Description 12/22/2024 Orders Only [facility] Orthopaedic Surgery [address] [place] [address] Advanced Medicine 6th [place] [address] [place] [address] Walter Patel MD Low back pain with left-sided sciatica, unspecified back pain laterality, unspecified chronicity (Primary Dx); Spinal stenosis, unspecified spinal region; Cyst of lumbar facet joint 12/22/2024 7:15 AM CDT Hospital Encounter [facility] [address] [place] [address] Low back pain, unspecified back pain laterality, unspecified chronicity, unspecified whether sciatica present 12/22/2024 7:50 AM CDT Office Visit [facility] Orthopaedic Surgery [address] [place] [address] Advanced [facility] 6th [place] [address] [place] [address] Walter Patel MD Low back pain, unspecified back pain laterality, unspecified chronicity, unspecified whether sciatica present (Primary Dx); Spinal stenosis, unspecified spinal region; Low back pain with left-sided sciatica, unspecified back pain laterality, unspecified chronicity 12/09/2024 Telephone [facility] Orthopaedic Surgery [address] [place] [phone] Goodwin Appointment Questions 12/09/2024 10:21 AM CDT - 12/09/2024 11:59 PM CDT Hospital Encounter [facility] ([facility]) [address] [place] [address] Discharge Disposition: Discharge to home or self care 12/09/2024 10:21 AM CDT - 12/09/2024 11:59 PM CDT Hospital Encounter [facility] ([facility]) [address] [place] [address] Discharge Disposition: Discharge to home or self care 12/09/2024 10:20 AM CDT - 12/09/2024 11:59 PM CDT Hospital Encounter [facility] ([facility]) [address] [place] [address] Discharge Disposition: Discharge to home or self care 12/09/2024 10:19 AM CDT - 12/09/2024 11:59 PM CDT Hospital Encounter [facility] ([facility]) [address] [place] [address] Discharge Disposition: Discharge to home or self care 12/09/2024 10:19 AM CDT - 12/09/2024 11:59 PM CDT Hospital Encounter [facility] ([facility]) [address] [place] [address] Discharge Disposition: Discharge to home or self care from Last 3 Months Allergies Active Allergy Reactions Criticality Noted Date Comments Latex Other (See comments),Unknown Low 03/16/2019 Throat swelling Sulfa (Sulfonamide Antibiotics) Anaphylaxis High 12/07/2017 Medications aspirin 81 mg chewable tablet Take 1 tablet (81 mg total) by mouth daily 1 Active buPROPion XL (WELLBUTRIN XL) 300 mg 24 hr tablet Take 1 tablet (300 mg total) by mouth daily 1 Active clonazePAM (KlonoPIN) 0.5 mg tablet 1 Active FLUoxetine (PROzac) 20 mg capsule Take 3 capsules (60 mg total) by mouth daily 1 Active furosemide (LASIX) 20 mg tablet Take 1 tablet (20 mg total) by mouth daily 7 Active gabapentin (NEURONTIN) 100 mg capsule Take 1 capsule (100 mg total) by mouth 3 (three) times a day 7 Active hydrOXYzine (ATARAX) 50 mg tablet Take 1 tablet (50 mg total) by mouth every 6 (six) hours as needed 1 Active insulin aspart (NovoLOG) 100 unit/mL vial for injection U UTD PER PUMP 7 Active lisinopriL (PRINIVIL,ZESTRIL) 30 mg tablet Take 1 tablet (30 mg total) by mouth daily 1 Active rosuvastatin (CRESTOR) 20 mg tablet Take 1 tablet (20 mg total) by mouth nightly 7 Active metoprolol XL (TOPROL-XL) 50 mg extended release tablet Take 1 tablet (50 mg total) by mouth daily 2 Active busPIRone (BUSPAR) 15 mg tablet Take 0.5 tablets (7.5 mg total) by mouth 2 (two) times a day 2 Active amLODIPine (NORVASC) 10 mg tablet Take 1 tablet (10 mg total) by mouth daily 2 Active dulaglutide (Trulicity) 3 mg/0.5 mL pen injectorIndication s:type 2 diabetes mellitus Inject 0.5 mL (3 mg total) under the skin every 7 days [id number] 2 mL 5 2 Active albuterol HFA (PROVENTIL HFA,VENTOLIN HFA,PROAIR HFA) 90 mcg/actuation inhaler 2 puffs every 4 (four) hours as needed 3 Active Advair Diskus 500-50 mcg/dose diskus inhaler Inhale 1 puff 2 (two) times a day 3 Active acetaminophen (TYLENOL) 500 mg tablet Take 1 tablet (500 mg total) by mouth every 6 (six) hours as needed Active cephalexin (KEFLEX) 500 mg capsule 5 Active LANTUS 100 unit/mL (3 mL) pen for injection INJECT 10 UNITS UNDER THE SKIN EVERY MORNING 5 Active magnesium oxide (MAG-OX) 400 mg (241.3 mg elemental magnesium) tablet Take 1 tablet (400 mg total) by mouth 2 (two) times a day 5 Active methocarbamoL (ROBAXIN) 500 mg tablet Take 1 tablet (500 mg total) by mouth 3 (three) times a day as needed 5 Active OLANZapine (ZyPREXA) 5 mg tablet Take 1 tablet (5 mg total) by mouth daily 5 Active ondansetron ODT (ZOFRAN-ODT) 4 mg disintegrating tablet DISSOLVE 1 TABLET ON THE TONGUE EVERY 8 HOURS NEEDED FOR NAUSEA OR VOMITING 5 Active oxyCODONE-acetamin ophen (PERCOCET) 5-325 mg per tablet Take 1 tablet by mouth every 12 (twelve) hours as needed Active pantoprazole DR (PROTONIX) 40 mg EC tablet Take 1 tablet (40 mg total) by mouth every 12 (twelve) hours 5 Active predniSONE (DELTASONE) 20 mg tablet Take 1 tablet (20 mg) by mouth daily 5 Active ondansetron (ZOFRAN) 4 mg tablet Take 1 tablet (4 mg total) by mouth every 8 (eight) hours as needed for nausea or vomiting. 15 tablet 8 025 Discontin ued(Alter chris therapy) cyclobenzaprine (FLEXERIL) 10 mg tablet Take 1 tablet (10 mg total) by mouth 3 (three) times a day as needed 9 025 Discontin ued(Alter chris therapy) omeprazole (PriLOSEC) 20 mg capsule Take 1 capsule (20 mg total) by mouth 2 (two) times a day 1 025 Discontin ued(Alter chris therapy) Active Problems Problem Noted Date Diagnosed Date Medtronic 780G Insulin pump in place 05/11/2021 Assessment & Plan (05/01/2023 9:38 AM EMPLOYMENT PROGRAMS ANALYST): This is a chronic condition which is [...] a recent stroke. 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 No changes made to insulin pump. Assessment & Plan (06/28/2021 2:03 PM EMPLOYMENT PROGRAMS ANALYST): This is a chronic condition which is [...] pump. Assessment & Plan (05/11/2021 1:59 PM EMPLOYMENT PROGRAMS ANALYST): This is a chronic condition which is [...] 02/18/2017 Assessment & Plan (05/01/2023 9:38 AM EMPLOYMENT PROGRAMS ANALYST): This is a chronic condition which is [...] prescribed. Assessment & Plan (06/28/2021 2:03 PM EMPLOYMENT PROGRAMS ANALYST): This is a chronic condition which is at goal. Goal is less than 70. Personally reviewed lipid panel. [id number] on crestor. Encouraged to eat healthy, include fresh fruits and vegetables daily and avoid eating fried foods more than once per week. Encouraged to take medications as prescribed. Assessment & Plan (05/11/2021 1:12 PM EMPLOYMENT PROGRAMS ANALYST): This is a chronic condition which is [...] 02/18/2017 Assessment & Plan (05/01/2023 9:35 AM EMPLOYMENT PROGRAMS ANALYST): This is a chronic condition which is [...] eye exam. last dilated eye exam was [facility] in [place] Monofilament foot exam completed. protective senses intact [...] worsening and not at goal. Personally reviewed [id number] to 9% not at goal less than 7% Personally reviewed blood sugar -129, not at goal 80-180 Medication- Continue Medtronic insulin pump. continue Trulicity 3mg weekly Monitor blood sugar continuously with Norseyle jennie 2 Encouraged annual eye exam. Monofilament [...] which is not at goal. Personally reviewed [id number] to 9% not at goal less than [...] CVA Assessment & Plan (06/28/2021 2:00 PM EMPLOYMENT PROGRAMS ANALYST): This is a chronic condition which is [...] CVA Assessment & Plan (05/11/2021 1:09 PM EMPLOYMENT PROGRAMS ANALYST): This is a chronic condition which is [...] scheduled Assessment & Plan (06/28/2021 2:04 PM EMPLOYMENT PROGRAMS ANALYST): Improving. Continue to see therapy as scheduled Assessment & Plan (05/11/2021 1:10 PM EMPLOYMENT PROGRAMS ANALYST): This is a chronic condition. Seeing speech therapy. Give extra time to allow her to get her words out Hypertension 02/18/2017 05/11/2021 Assessment & Plan (05/11/2021 1:11 PM EMPLOYMENT PROGRAMS ANALYST): This is a chronic condition which is [...] on file Legal Sex Female 4:58 PM EMPLOYMENT PROGRAMS ANALYST Gender Identity Not on file Sexual Orientation Not on file Last Filed Vital Signs Vital Sign Reading Time Taken Comments Blood Pressure 134/74 05/01/2023 8:59 AM EMPLOYMENT PROGRAMS ANALYST Pulse 68 12/07/2017 5:30 PM CDT Temperature 36.1 C (97 F) 12/07/2017 4:41 PM CDT Respiratory Rate 18 12/07/2017 5:30 PM CDT Oxygen Saturation 92% 12/07/2017 6:00 PM CDT Inhaled Oxygen Concentration - - Weight 77.6 kg (171 lb) 12/22/2024 8:01 AM CDT Height 154.9 cm (5' 1) 12/22/2024 8:01 AM CDT Body Mass Index 32.31 12/22/2024 8:01 AM CDT Plan of Treatment Not on file Procedures Procedure Name Priority Date/Time Associated Diagnosis Comments XR SCOLIOSIS 6 OR MORE VIEWS Schedule Routine, Read Routine (OP Routine) 12/22/2024 7:49 AM CDT Low back pain, unspecified back pain laterality, unspecified chronicity, unspecified whether sciatica present XR TRANSFER OF OUTSIDE FILMS Routine 12/09/2024 10:[address] OUTSIDE REFERENCE Routine 12/09/2024 10:21 AM CDT NEURO MR OUTSIDE REFERENCE Routine 12/09/2024 10:20 AM CDT NEURO MR OUTSIDE REFERENCE Routine 12/09/2024 10:19 AM CDT NEURO MR OUTSIDE REFERENCE Routine 12/09/2024 10:19 AM CDT POCT HEMOGLOBIN A1C Routine 05/01/2023 9 :11 AM EMPLOYMENT PROGRAMS ANALYST Type 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, with long-term current use of insulin (HCC) DIABETIC EYE EXAM Routine 03/26/2023 COMPREHENSIVE METABOLIC PANEL Routine 12/19/2022 LIPID PANEL Routine 12/19/2022 ALBUMIN CREATININE RATIO, URINE Routine 12/19/2022 from Last 3 Months or Most Recently Relevant to Health Maintenance Results * XR Scoliosis 6 or More Views (12/22/2024 7:49 AM CDT) Anatomical Region Laterality Modality Spine N/A Computed Radiogr aphy 12/22/2024 7:57 AM CDT Impressions 12/22/2024 7:57 AM CDT 1. Multilevel lumbar degenerative disc disease greatest in mild at L4-L5 Electronically signed by: Carmelo Neil MD Narrative 12/22/2024 7:57 AM CDT EXAMINATION: XR SCOLIOSIS 6 OR MORE VIEWS HISTORY: Back pain. FINDINGS: Comparison to 12/28/2022. No significant abnormal curvature of the spine. Mild left coronal imbalance. No sagittal imbalance. No significant pelvic obliquity. Multilevel lumbar degenerative disc disease greatest in mild at L4-L5. Grade 1 anterolisthesis of L4 on L5 in neutral position. Unchanged with bending. Moderate multilevel facet osteoarthritis. Lumbar vertebral body heights preserved. Procedure Note Carmelo Neil MD - 12/22/2024 EXAMINATION: XR SCOLIOSIS 6 OR MORE VIEWS HISTORY: Back pain. FINDINGS: Comparison to 12/28/2022. No significant abnormal curvature of the spine. Mild left coronal imbalance. No sagittal imbalance. No significant pelvic obliquity. Multilevel lumbar degenerative disc disease greatest in mild at L4-L5. Grade 1 anterolisthesis of L4 on L5 in neutral position. Unchanged with bending. Moderate multilevel facet osteoarthritis. Lumbar vertebral body heights preserved. IMPRESSION: 1. Multilevel lumbar degenerative disc disease greatest in mild at L4-L5 Electronically signed by: Carmelo Neil MD Walter FELDERG XR PROCEDURES Fi nal Result * XR Outside Reference (12/09/2024 10:21 AM CDT) Impressions [facility] - 12/09/2024 10:21 AM CDT These images are for Reference purposes only and have not been reviewed by [facility] Radiology. There will be no report generated by a [facility] Radiologist. Narrative [facility] - 12/09/2024 10:21 AM CDT EXAMINATION: Images For Reference Purposes Only Walter FELDERG XR PROCEDURES Fi nal Result [email or web address] * Neuro CT Outside Reference (12/09/2024 10:21 AM CDT) Impressions [facility] - 12/09/2024 10:21 AM CDT These images are for Reference purposes only and have not been reviewed by [facility] Radiology. There will be no report generated by a [facility] Radiologist. Narrative [facility] - 12/09/2024 10:21 AM CDT EXAMINATION: Images For Reference Purposes Only Walter Patel MD IMG CT PROCEDURES Fi nal Result Performing Organization Address [facility] de Phone Number [email or web address] * Neuro MR Outside Reference (12/09/2024 10:20 AM CDT) Impressions [facility] - 12/09/2024 10:20 AM CDT These images are for Reference purposes only and have not been reviewed by [facility] Radiology. There will be no report generated by a [facility] Radiologist. Narrative [facility] - 12/09/2024 10:20 AM CDT EXAMINATION: Images For Reference Purposes Only Walter Patel MD IMG MRI PROCEDURES F inal Result Performing Organization Address [facility] de Phone Number [email or web address] * Neuro MR Outside Reference (12/09/2024 10:19 AM CDT) Impressions [facility] - 12/09/2024 10:19 AM CDT These images are for Reference purposes only and have not been reviewed by [facility] Radiology. There will be no report generated by a [facility] Radiologist. Narrative [facility] - 12/09/2024 10:19 AM CDT EXAMINATION: Images For Reference Purposes Only Walter Patel MD IMG MRI PROCEDURES F inal Result Performing Organization Address [facility] de Phone Number [email or web address] * Neuro MR Outside Reference (12/09/2024 10:19 AM CDT) Impressions [facility] - 12/09/2024 10:19 AM CDT These images are for Reference purposes only and have not been reviewed by [facility] Radiology. There will be no report generated by a [facility] Radiologist. Narrative [facility] - 12/09/2024 10:19 AM CDT EXAMINATION: Images For Reference Purposes Only Walter Patel MD IMG MRI PROCEDURES F inal Result Performing Organization Address [facility]/ZIP Co de Phone Number [email or web address] * POCT hemoglobin A1c (05/01/2023 9:11 AM EMPLOYMENT PROGRAMS ANALYST) Hemoglobin A1C, POC 6.5 % Blood 05/01/2023 9:11 AM EMPLOYMENT PROGRAMS ANALYST Harleen Butler NP POINT OF CARE TEST ORDERABLES F inal Result * Diabetic Eye Exam (03/26/2023) 03/26/2023 Result [facility] Historical Provider HEALTH MAINTENANCE Final Result * Albumin Creatinine Ratio, Urine (12/19/2022) Pathologist [facility] SCRIBED Creatinine, Urine 54.6 - - - [facility] SCRIBED Microalbumin 12.1 - - - [facility] SCRIBED Microalb/Creat Ratio 22 [facility] Urine 12/19/2022 Result [facility] Historical Provider LAB URINE ORDERABLES Gauri l Result Performing Organization Address [facility]/ZIP Co de Phone Number [facility] * Lipid panel (12/19/2022) Pathologist [facility] SCRIBED Cholesterol, Total 138 - - - [facility] SCRIBED HDL 66 - - - [facility] SCRIBED LDL 46 - - - [facility] SCRIBED Triglycerides 157 - - - [facility] Blood 12/19/2022 Result [facility] Historical Provider LAB BLOOD ORDERABLES Gauri l [...] - - [facility] SCRIBED eGFR in NonAfrican [place] 51 - - - [facility] Blood 12/19/2022 Historical Provider LAB BLOOD ORDERABLES Gauri l Result [facility] from Last 3 Months or Most Recently Relevant to Health Maintenance Insurance [facility] [employer] [place] [employer] [place] Care Teams Forensic Document Examiner Relationship Specialty Start Date End Date Alethea Roberto NP [address] [place] [address] PCP - General Family Medicine 05/01/23
--- OUTSIDE RECORDS SUMMARY | 2024-12-23 00:18 | XMS_ITS | Clinical Summary ---
Author Organization [facility] its learning Address [address] [place] [address] Care Team Providers Care Preschool Assistant Director Name Role Phone Yvette Cunningham MD Primary Care Provider [phone] Source Comments [facility] its learning,non-owned Affiliates and Associated Physician Practices is amultiple site organization consisting of ambulatory clinics and hospital sitesin [place], [place], [place] and [place]. This disclosure is being madepursuant to the Care Everywhere program and may not contain all information available regarding this patient. Last updated 18.[facility] its learning Allergies Active Allergy Reactions Criticality Noted Date [...] daily Active Calcium Carbonate-Vit D-Min (CALCIUM 1200) 5592-6414 MG-UNIT CHEW Take 1 tablet by mouth [...] [facility] - Cardiology [address] [id number] Unique Valdivia RN Loop Recorder 11/11/2024 10:00 AM CDT Office Visit [facility] - Neurology [address] [facility] [place] [id number] Eleni Gtz PA-C Cerebrovascular accident (CVA), unspecified mechanism (HCC) (Primary Dx); Primary hypertension; Type 2 diabetes, controlled, with neuropathy (HCC); Moderate episode of recurrent major depressive disorder (HCC); Hallucinations; Cognitive dysfunction 11/11/2024 Travel 10/28/2024 Telephone [facility] - Cardiology [id number] [place] [phone] Provider, No Pcp Question; Loop Recorder from [...] on file Legal Sex Female 8:31 AM PROCESS MECHANIC Gender Identity Not on file Sexual Orientation Not on file Last Filed Vital Signs Vital Sign Reading Time Taken Comments Blood Pressure 116/74 11/11/2024 9:37 AM CDT Pulse 96 11/11/2024 9:37 AM CDT Temperature 36.6 C (97.8 F) 04/18/2021 12:58 PM PROCESS MECHANIC Respiratory Rate 14 11/11/2024 9:37 AM CDT Oxygen Saturation 95% 04/18/2021 3:02 PM PROCESS MECHANIC Inhaled Oxygen Concentration - - Weight 77.6 kg (171 lb) 11/11/2024 9:37 AM CDT Height 154.9 cm (5' 1) 11/22/2021 9:51 AM CDT Body Mass Index 32.31 11/22/2021 9:51 AM CDT Plan of Treatment Upcoming Encounters Date Type Department Care Team (Late st Contact Info) Description 12/31/2024 1:00 AM CDT Clinical Support [facility] [address] [facility], [address] [address] 02/04/2025 1:00 AM CDT Clinical Support [facility] [address] [place] [address], [address] [address] Health Maintenance Due Date Last Done Comments [...] this topic Medical Devices Implanted Type Area Head Banquet Waitress Device Identifier Shelf Expiration Date Model / Serial / Lot Sys Crd Mntr Rvl Linq [employer] Ins - [id number] Implanted:Qty : 1 on 04/18/2021 by Maico De La Cruz MD at [facility] Loop Recorder Left: Chest Wall [employer] 01/14/2022 LINQ[employer] DISCONTINUED / [id number] / Procedures Procedure Name Priority Date/Time Associated Diagnosis Comments BASIC METABOLIC PANEL (CALCIUM TOTAL) Routine 04/18/2021 3:51 AM PROCESS MECHANIC HEMOGLOBIN A1C Add on 04/16/2021 9:35 AM PROCESS MECHANIC from Last 3 Months or Most Recently Relevant to Health Maintenance Results * (ABNORMAL) BASIC METABOLIC PANEL (CALCIUM TOTAL) (04/18/2021 3:51 AM PROCESS MECHANIC) BUN 7 7 - 26 mg/dL 04/18/2021 5:15 AM [facility] Creatinine 0.80 0.56 - 0.96 mg/dL 04/18/2021 5:15 AM [facility] Sodium 141 136 - 145 mmol/L 04/18/2021 5:15 AM [facility] Potassium 3.2(L) 3.5 - 4.5 mmol/L 04/18/2021 5:15 AM [facility] Chloride 105 98 - 107 mmol/L 04/18/2021 5:15 AM [facility] CO2 21(L) 22 - 29 mmol/L 04/18/2021 5:15 AM [facility] Glucose 185(H) 70 - 115 mg/dL 04/18/2021 5:15 AM [facility] Calcium 9.7 8.4 - 10.2 mg/dL 04/18/2021 5:15 AM [facility] Anion Gap 18 8 - 18 04/18/2021 5:15 AM [facility] BUN/Creatinine Ratio 9 7 - 23 04/18/2021 5:15 AM [facility] Osmolality Calculated 295 270 - 300 mOsm/kg 04/18/2021 5:15 AM [facility] eGFR by CKD-EPI 81(L) >=90 mL/min/1.7 3 m2 04/18/2021 5:15 AM [facility] Blood BLOOD SPECIMEN / Unknown Lab Venipuncture / Unknown 04/18/2021 3:51 AM PROCESS MECHANIC 04/18/2021 4:52 AM [facility] us Aaron Hauser MD LAB - CHEMISTRY ORDERABLES Final Result [facility] [address] [place] [address], [facility] [email or web address]] [phone] * (ABNORMAL) HEMOGLOBIN A1C (04/16/2021 9:35 AM [facility]) Hemoglobin A1c 7.9(H) 4.4 - 6.3 % 04/16/2021 11:10 AM [facility] Estimated Average Glucose 180 mg/dL 04/16/2021 11:10 AM [facility] Comment: HbA1c Interpretation: Treatment target values recommended by ADA and other clinical organizations should be used to evaluate metabolic control in patients. Treatment Target Values: Normal : < 5.7% Pre-diabetes: 5.7-6.4% Diabetes: Equal to or greater than 6.5% Reference: [place] [employer] Standards of Care in Diabetes -2014 In patients 70 years and older consider HbA1c target range of 7.0-7.5% Reference: Diabetes Mellitus in Older People: Position Statement on behalf of the International Association of Gerontology and Geriatrics (IAGG), the Diabetes Working Libertarian for Older People (EDWPOP), and the International Task Force of Experts in Diabetes. Akash Saavedra et al. J [place] Medical Directors Association. 2012 Test results diagnostic of diabetes should be repeated for confirmation. The Sebia Capillary 2 assay for the measurement of HbA1c is a National Glycohemoglobin Standardization Program (NGSP)certified method. Blood BLOOD SPECIMEN / Unknown Venipuncture / Unknown 04/16/2021 9:35 AM PROCESS MECHANIC 04/16/2021 9:40 AM PROCESS MECHANIC us Aaron Hauser MD LAB - CHEMISTRY ORDERABLES Final Result [address] [address], [facility] [[email or web address]] [phone] from Last 3 Months or Most Recently Relevant to Health Maintenance Insurance [employer] Advance Directives * Full Code (Latest Code Status on File) Date Activated Date Inactivated Comments 04/16/2021 12:01 AM 04/18/2021 5:09 PM Care Teams Preschool Assistant Director Relationship Specialty Start Date End Date Yvette Cunningham MD [address] [facility] [address] [address] [address] [place] [id number] PCP - General Family Medicine 11/11/24
--- OUTSIDE RECORDS SUMMARY | 2024-12-23 00:18 | XMS_ITS | Encounter Summary ---
Author Organization [facility] Address [address] [place] [address] Care Team Providers Care Commercial Announcer Name Role Phone Alethea Roberto Primary Care Provider Alethea Roberto Unavailable [phone] Alethea Roberto Primary Care Provider Yvette Cunningham MD Primary Care Provider [phone] Encounter Details Date Type Department Care Team (Late st Contact Info) Description 12/13/2020 Fantoot Message Enc [facility] [address], [address] [address] Jamil Lyons MD [address] [place], [place] [id number] Visit Follow Up Social History Tobacco Use [...] Sex Assigned at Female 06/16/2024 3:02 PM DISTRICT SALES LEADER Legal Sex Female 10:13 AM CDT Gender [...] Rule Out 04/10/2024 04/10/2024 04/10/2024 12:09 PM DISTRICT SALES LEADER COVID-19 Rule Out 10/02/2024 10/02/2024 10/02/2024 1:17 PM CDT documented as of this encounter Care Teams Commercial Announcer Relationship Specialty Start Date End Date Alethea Roberto APNP [address] [place] [address] PCP - General NURSE PRACTITIONER 05/06/20 03/08/21 Alethea Roberto APNP [address] [place] [address] PCP - General NURSE PRACTITIONER 02/18/23 07/07/24 Yvette Cunningham MD [address] [place] [address] PCP - General FAMILY PRACTICE 07/08/24 Alethea Roberto APNP [address] [place] [address] Nurse Practitioner NURSE PRACTITIONER 03/09/21 documented as of this encounter
--- OUTSIDE RECORDS SUMMARY | 2024-12-23 00:18 | XMS_ITS | Encounter Summary ---
Author Organization [facility] Healthcare Address [facility] [place] [address] Care Team Providers Care Fuel System Maintenance Supervisor Name Role Phone Alethea Robreto PRESS TENDER Primary Care Provider [phone] Reason for Referral * Diagnostic Imaging (Routine) - Closed Specialty Diagnoses / Procedures Referred By Contac t Referred To Contact Diagnoses Low back pain, unspecified back pain laterality, unspecified chronicity, unspecified whether sciatica present Procedures XR Scoliosis 6 or More Views Walter Patel MD [address] [facility] [address] [place] [address] Phone: tel: fax: [facility] Referral ID Status Reason Start Date Expiration Date Visits Re quested Visits Authorized [id number] Closed 12/18/2024 01/17/2026 1 1 Reason for Visit * Diagnostic Imaging (Routine) - Closed Specialty Diagnoses / Procedures Referred By Contac t Referred To Contact Diagnoses Low back pain, unspecified back pain laterality, unspecified chronicity, unspecified whether sciatica present Procedures XR Scoliosis 6 or More Views Walter Patel MD [address] [place] [address] Phone: tel: fax: [facility] Medicine Referral ID Status Reason Start Date Expiration Date Visits Re quested Visits Authorized [id number] Closed 12/18/2024 01/17/2026 1 1 Encounter Details Date Type Department Care Team (Latest Contact Info) Description 12/22/2024 7:15 AM CDT Hospital Encounter [facility] [address] [place] [address] Low back pain, unspecified back pain laterality, unspecified chronicity, unspecified whether sciatica present Social History Tobacco Use Types Packs/Day Years Used Date Smoking Tobacco: Former Cigarettes Q uit: 01/10/2020 Comments No Sex and Gender Information Value Date Recorded Sex Assigned at Not on file 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 Gender Identity Not on file Sexual Orientation Not on file documented as of this encounter Plan of Treatment Not on file documented as of this encounter Procedures Procedure Name Priority Date/Time Associated Diagnosis Comments XR SCOLIOSIS 6 OR MORE VIEWS Schedule Routine, Read Routine (OP Routine) 12/22/2024 7:49 AM CDT Low back pain, unspecified back pain laterality, unspecified chronicity, unspecified whether sciatica present documented in this encounter Results * XR Scoliosis 6 or More [...] Electronically signed by: Carmelo Neil MD Walter Patel MD IMG XR PROCEDURES Fi nal Result documented in this encounter Visit Diagnoses Diagnosis Low back pain, unspecified back pain laterality, unspecified chronicity, unspecified whether sciatica present documented in this encounter Care Teams Fuel System Maintenance Supervisor Relationship Specialty Start Date End Date Alethea Roberto NP [address] [facility] [place] [address] PCP - General Family Medicine 05/01/23 documented as of this encounter
--- OUTSIDE RECORDS SUMMARY | 2024-12-23 00:18 | XMS_ITS | Encounter Summary ---
Author Organization [facility] Address [address] [place] [address] Phone Care Team Providers Care Power Regulator Name Role Phone Alethea Roberto ASSISTANT SPEECH LANGUAGE PATHOLOGIST Primary Care Provider [phone] Reason for Referral * Consultation (Routine) - Pending Review Specialty Diagnoses / Procedures Referred By Contac t Referred To Contact Pain Management Diagnoses Spinal stenosis, unspecified spinal region Low back pain with left-sided sciatica, unspecified back pain laterality, unspecified chronicity Cyst of lumbar facet joint Walter Patel MD [address] [facility] [address] [place] [address] Phone: tel: fax: [address] [phone] Referral ID Status Reason Start Date Expiration Date Visits Requested Visits Authorized [id number] Pending Review Specialty Services Required 12/22/2024 01/21/2026 1 1 Question Answer Please select the performing region: [facility] [152] # of visits: 1 Comments For consideration of left L4-5 facet injection. Please fenestrate for facet cyst per Dr. Patel. Encounter Details Date Type Department Care Team (Late st Contact Info) Description 12/22/2024 Orders Only [facility] Orthopaedic Surgery [address] [facility] Medicine 6th [place] [address] [place] [id number] Walter Patel MD [address] [facility] [address] [place] [address] Low back pain with left-sided sciatica, unspecified back pain laterality, unspecified chronicity (Primary Dx); Spinal stenosis, unspecified spinal region; Cyst of lumbar facet joint Social History Tobacco Use Types Packs/Day Years Used Date Smoking Tobacco: Former Cigarettes Q uit: 01/10/2020 Comments No Sex and Gender Information Value Date Recorded Sex Assigned at Not on file 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 Gender Identity Not on file Sexual Orientation Not on file documented as of this encounter Plan of Treatment Scheduled Referrals Name Type Priority Associated Diagnoses Order Schedule Ambulatory referral to Pain Management Outpatient Referral Routine Spinal stenosis, unspecified spinal region Low back pain with left-sided sciatica, unspecified back pain laterality, unspecified chronicity Cyst of lumbar facet joint 1 Occurrences starting 12/22/2024 until 12/22/2025 documented as of this encounter Visit Diagnoses Diagnosis Low back pain with left-sided sciatica, unspecified back pain laterality, unspecified chronicity- Primary Spinal stenosis, unspecified spinal region Cyst of lumbar facet joint documented in this encounter Care Teams Power Regulator Relationship Specialty Start Date End Date Alethea Roberto NP [address] [place] [address] PCP - General Family Medicine 05/01/23 documented as of this encounter
--- OUTSIDE RECORDS SUMMARY | 2024-12-23 00:18 | XMS_ITS | Clinical Summary ---
Author Organization [facility] Address [address] [place] [address] Care Team Providers Care Payroll Manager Name Role Phone Alethea Roberto Amando DUFFY Unavailable [phone] Yvette Cunningham MD Primary Care Provider [phone] Allergies Active Allergy Reactions Criticality Noted Date [...] Major depression with psychotic features (CMS/ C [facility]) 11/03/2024 Failure to thrive in adult 11/02/2024 Spinal arachnoid cyst 08/07/2023 Cervical radiculopathy 01/25/2023 Lumbar radiculopathy 12/28/2022 HTN (hypertension) 08/30/2022 Mixed hyperlipidemia 02/18/2017 Type 2 diabetes mellitus wit h stage 3a chronic kidney disease, with long-term current use of insulin ([facility]) 02/18/2017 Resolved Problems Problem Noted Date Diagnosed Date Resolved Date Passive suicidal ideations 11/03/2024 0 11/05/2024 Left hip pain 09/22/2024 11/03/2024 Physical deconditioning 04/29/2024 06/0 08/2024 Acute hypoxic respiratory fa ilure ([facility]) 04/11/2024 11/03/2024 Back pain 08/17/2023 11/03/2024 HCAP (healthcare-associated pneumonia) 02/28/2022 11/03/2024 Pneumonia 02/28/2022 11/03/2024 Closed displaced fracture of shaft of fifth metacarpal bone of right hand, initial encounter 02/19/2022 11/03/2024 Acute ischemic stroke ([facility]) 04/14/2021 11/03/2024 Pain in right elbow 12/15/2020 11/04/19 25 Encounters Date Type Department Care Team Description 11/13/2024 12:00 PM CDT Home Care Visit [address] [place] [address] [place] [address] Zenaida Harper RN SN NON ADMIT SOC 11/12/2024 1:01 PM CDT - 11/12/2024 11:59 PM CDT Hospital Encounter [facility] [address] [place] [address] Yvette Cunningham MD Overberg, Rachel, PA Discharge Disposition: Home or Self Care (Routine Discharge) 11/12/2024 12:59 PM CDT - 11/12/2024 1:00 PM CDT Hospital Encounter [facility] [address] [place] [address] Yvette Cunningham MD Discharge Disposition: Home or Self Care (Routine Discharge) 11/12/2024 Orders Only [facility] [address] [place] [address] Eleni Gtz PA 11/12/2024 Travel 11/09/2024 11:30 AM CDT Home Care Visit [address] [place] [address] [place] [address] Zenaida Harper RN SN NON ADMIT SOC 11/02/2024 1:00 PM CDT - 11/05/2024 1:43 PM CDT Hospital En[facility] [address] [place] [address] [place] [address] Beulah Parra MD Wheeler, Erin M, MD Fatigue; Altered Mental Status Discharge Disposition: Home or Self Care (Routine Discharge) 11/02/2024 Travel 10/08/2024 8:54 AM CDT - 10/08/2024 11:42 AM CDT Emergency [facility] [address] [place] [address] [place] [address] Mike Dunbar MD Back Pain Discharge Disposition: Home or Self Care (Routine Discharge) 10/08/2024 Travel 10/02/2024 11:52 AM CDT - 10/02/2024 4:00 PM CDT [facility] [address] [place] [address] [place] [address] Mike Dunbar MD Leg Pain Discharge Disposition: Home or Self Care (Routine Discharge) 10/02/2024 Travel 09/30/2024 9:11 AM CDT - 09/30/2024 11:59 PM CDT Hospital [facility] [address] [place] [address] Gilma Castle APNP Kovarik, Ryan A, RUN BOAT OPERATOR Hip Pain Discharge Disposition: Home or Self Care (Routine Discharge) 09/30/2024 Travel 09/28/2024 9:37 AM CDT - 09/28/2024 11:59 PM CDT Hospital Encounter [facility] [address] [place] [address] Gilma Castle APNP Kovarik, Ryan A, RUN BOAT OPERATOR Hip Pain Discharge Disposition: Home or Self Care (Routine Discharge) 09/28/2024 Travel from Last 3 Months Family History [...] your doctor or pharmacy? Never 04/11/2024 [facility] Utilities Answer Date Recorded In the past 12 months has th e [employer] gas, oil, or water [employer] threatened to shut off services in your [...] 04/11/2024 How often do you attend chur or gnosticism services? Patient declined 04/11/2024 Do you belong to any clubs o r organizations such as confucianist groups, unions, fraternal or athletic groups, or [...] and heating? Not hard at all 11/02/2024 [facility] - Occupational Stress [...] place to sleep or slept in a correction (including now)? No 08/07/2023 Housing Stability Vital Sign Answer Don e Recorded In the last 12 months, was t here a time when you were not able to pay the mortgage or rent on time? No 11/02/2024 In the past 12 months, how m any times have you moved where you were living? 0 11/02/2024 At any time in the past 12 m [facility], were you homeless or living in a correction (including now)? No 11/02/2024 Comments No Sex and Gender Information Value Date Recorded Sex Assigned at Female 06/16/2024 3:02 PM TRANSPORT MANAGER Legal Sex Female 10:13 AM CDT Gender [...] from hospital Lifestyle No Leyda Gaitan RN Interventions Community Resource Recommendations Community Resource Services Recommended Domains Addressed Status Status Reason/Outcome Date/Time [facility] Crisis Services, Mental Health Education, Mental Health Evaluation, Mental Health Services Depression Recommended 12/20/2024 1:02 PM CDT Clinic, [facility] Psychiatry Prison Detoxification, Mental Health Hospital Treatment, Mental Health Residential Treatment, Safe Housing: Substance Use, Severe Mental Illness Retirement, Short Term Detoxification, Sober Living Community, Substance Use Recovery Home Tobacco Use, Depression Recommended 12/20/2024 1:02 PM CDT [place] [place] Prison Detoxification, Mental Health Hospital Treatment, Mental Health Residential Treatment, Safe Housing: Substance Use, Severe Mental Illness Retirement, Short Term Detoxification, Sober Living Community, Substance Use Recovery Home Tobacco Use, Depression Recommended 12/20/2024 1:02 PM CDT [facility] Prison Detoxification, Mental Health Hospital Treatment, Mental Health Residential Treatment, Safe Housing: Substance Use, Severe Mental Illness Retirement, Short Term Detoxification, Sober Living Community, Substance Use Recovery Home Tobacco Use, Depression Recommended 12/20/2024 1:02 PM CDT [facility] Mental Health Hospital Treatment, Mental Health Residential Treatment, Mental Health Services, Substance Use Services Tobacco Use, Depression Recommended 12/20/2024 1:02 PM CDT [facility] Soil Checker Detoxification, Mental Health Hospital Treatment, Mental Health Residential Treatment, Safe Housing: Substance Use, Severe Mental Illness Retirement, Short Term Detoxification, Sober Living Community, Substance Use Recovery Home Tobacco Use, Depression Recommended 12/20/2024 1:02 PM CDT [facility] Mental Health Hospital Treatment Depression Recommended 12/20/2024 1:02 PM CDT [facility] Hospital Treatment Depression Recommended 12/20/2024 1:02 PM CDT [facility] Crisis Services, Mental Health Education, Mental Health Evaluation, Mental Health Hospital Treatment, Mental Health Services Depression Recommended 12/20/2024 1:02 PM CDT from Last 12 Months Medical Devices Implanted Type Area Cut Off Saw Operator Metal Device Identifier Shelf Expiration Date Model / Serial / Lot Agent Hemostatic Surgiflo 8 Ml Kit - [id number] Implanted:Qty: 2 on 08/07/2023 by William Mello MD at [facility] Sealant N/A: Spine Thoracic [employer] 09/30/2024 [id number] / / [id number] Agent Hemostatic Surgiflo 8 Ml Kit - [id number] Implanted:Qty: 1 on 08/07/2023 by William Mello MD at [facility] Sealant N/A: Spine Thoracic [employer] 09/30/2024 2994 / / [id number] 1.7mm S Locking Plate T, Narrow 10 Holes Implanted:Qty: 1 on 02/21/2022 by Jamil Lyons MD at [facility] Right: Hand [employer] [id number] / / 1.7 X 11 Locking Screw Implanted:Qty: 2 on 02/21/2022 by Jamil Lyons MD at [facility] Right: Hand [employer] [id number] / / 1.7 X 9 Locking Screw Implanted:Qty: 1 on 02/21/2022 by Jamil Lyons MD at [facility] Right: Hand [employer] [id number] / / 1.7 X 7 Locking Screw Implanted:Qty: 2 on 02/21/2022 by Jamil Lyons MD at [facility] Right: Hand [employer] [id number] / / 1.7 X 6 Locking Screw Implanted:Qty: 1 on 02/21/2022 by Jamil Lyons MD at [facility] Right: Hand [employer] [id number] / / Variax 2 Non-Locking Screw 1.7mm X 7mm Implanted:Qty: 1 on 02/21/2022 by Jamil Lyons MD at [facility] Right: Hand [employer] [id number] / / [employer] 2 Non-Locking Screw 1.7mm X 8mm Implanted:Qty: 1 on 02/21/2022 by Jamil Lyons MD at [facility] Right: Hand [employer] [id number] / / Vistaseal Fibrin Sealant Implanted:Qty: 1 on 08/07/2023 by William Mello MD at [facility] N/A: Spine Thoracic [employer] [id number] 08/16/2023 [id number] / [id number] / [id number] Explanted Type Area Cut Off Saw Operator Metal Device Identifier Shelf Expiration Date Model / Serial / Lot 1.4 X 27mm, Ao Twist Drill Explanted:Qty: 1 on 02/21/2022 by Jamil Lyons MD at [facility] Right: Hand [employer] [id number] / / Procedures Procedure Name Priority Date/Time [...] AUTO W/MICRO STAT 10/02/2024 12:30 PM CDT HEMOGLOBIN, GLYCOSYLATED Routine 04/11/2024 11:15 PM TRANSPORT MANAGER HEPATITIS PANEL,ACUTE STAT 08/17/2023 6:53 PM CDT MG SCREENING W SREE JUAN DIGI Routine 03/22/2023 10:16 AM CDT Visit for screening mammogram from Last 3 Months or Most Recently Relevant to Health Maintenance Results * VITAMIN B-12 (11/12/2024 1:58 PM CDT) VITAMIN B12 S/P/B 545 193 - 986 PG/ML 11/12/2024 8:07 PM CDT [facility] 11/12/2024 1:58 PM CDT us [facility] Final Result Performing Organization Address City/State/[facility] Co de Phone Number [facility] [address] [place] [address], [id number] * CT LUNG SCREENING (11/12/2024 1:33 PM [...] 6:14 AM Narrative 11/18/2024 6:15 AM [address]T [address] [place] [address] Examination: CT LUNG SCREENING Exam time: 11/12/2024 [...] Procedure Note Shade Kumar MD - 11/18/[address] [place] [address] Examination: CT LUNG SCREENING Exam time: 11/12/2024 [...] - 99 MG/DL 11/05/2024 1:44 PM CDT [facility] 11/05/2024 11:4 8 AM CDT Yvette Cunningham MD POCT ORDERABLES - DEVICE Final Result [facility] [address] [place] [address], * (ABNORMAL) COMPREHENSIVE METABOLIC PANEL (11/05/2024 5:41 AM CDT) Only the most recent of5 resultswithin the time period is included. SODIUM S/P/B 141 136 - 145 MMOL/L 11/05/2024 6:07 AM CDT [facility] POTASSIUM S/P/B 3.3(L) 3.5 - 5.1 MMOL/L 11/05/2024 6:07 AM CDT [facility] CHLORIDE S/P/B 103 98 - 107 MMOL/L 11/05/2024 6:07 AM CDT [facility] CO2 28.1 21.0 - 32.0 MMOL/L 11/05/2024 6:07 AM CDT [facility] GLUCOSE 230(H) 70 - 99 MG/DL 11/05/2024 6:07 AM CDT [facility] Comment: FASTING GLUCOSE 100 TO 125 MG/DL IS CONSISTENT WITH IMPAIRED FASTING GLUCOSE. FASTING GLUCOSE >125 MG/DL IS CONSISTENT WITH DIABETES. RANDOM GLUCOSE >200 MG/DL WITH HYPERGLYCEMIC SYMPTOMS IS CONSISTENT WITH DIABETES. PER ADA GUIDELINES BUN 11 6 - 24 MG/DL 11/05/2024 6:07 AM CDT [facility] CREATININE S/P/B 0.95 0.55 - 1.02 MG/DL 11/05/2024 6:07 AM CDT [facility] CALCIUM S/P/B 9.3 8.4 - 10.5 MG/DL 11/05/2024 6:07 AM CDT [facility] BILIRUBIN TOTAL S/P/B 0.5 0.2 - 1.0 MG/DL 11/05/2024 6:07 AM [facility] Comment: THIS ASSAY IS NOT RECOMMENDED FOR PATIENTS UNDERGOING TREATMENT WITH ELTROMBOPAG DUE TO THE POTENTIAL FOR FALSELY ELEVATED RESULTS. ALKALINE PHOSPHATASE S/P/B 140(H) 50 - 130 U/L 11/05/2024 6:07 AM [facility] AST 11(L) 15 - 37 U/L 11/05/2024 6:07 AM [facility] ALT 15 14 - 59 U/L 11/05/2024 6:07 AM [facility] TOTAL PROTEIN S/P/B 6.7 6.4 - 8.2 G/DL 11/05/2024 6:07 AM [facility] ALBUMIN S/P/B 3.0(L) 3.4 - 5.0 G/DL 11/05/2024 6:07 AM [facility] ANION GAP 9.9 5.0 - 15.0 MMOL/L 11/05/2024 6:07 AM [facility] OSMOLALITY (CALC) 299 MOSM/KG 025 6:07 AM [facility] Comment:REFERENCE RANGE NOT ESTABLISHED GFR ESTIMATE 68(L) >89 ML/MIN/1. 73 M2 11/05/2024 6:07 AM [facility] GFR NOTES GFR REFERENCE S: 11/05/2024 6:07 AM [facility] Comment: THE ESTIMATED GFR IS CALCULATED [...] us Yvette Cunningham MD LABORATORY Final Result [facility] [address] [place] [address], * (ABNORMAL) CBC W/DIFF AUTOMATED (11/05/2024 5:41 AM CDT) Only the most recent of6 resultswithin the time period is included. WBC 10.63 4.00 - 10.80 x10'3/uL 11/05/2024 5:50 AM CDT [facility] RBC 4.71 4.10 - 5.40 x10'6/uL 11/05/2024 5:50 AM CDT [facility] HGB 12.0 12.0 - 16.0 G/DL 11/05/2024 5:50 AM CDT [facility] HCT 38.5 36.0 - 47.0 % 11/05/2024 5:50 AM CDT [facility] MCV 81.7 78.0 - 100.0 FL 11/05/2024 5:50 AM CDT [facility] MCH 25.5(L) 27.0 - 31.0 PG 11/05/2024 5:50 AM CDT [facility] MCHC 31.2(L) 33.0 - 36.0 G/DL 11/05/2024 5:50 AM CDT [facility] RDW 15.9(H) 11.5 - 14.5 % 11/05/2024 5:50 AM CDT [facility] PLT 356(H) 150 - 350 x10'3/uL 11/05/2024 5:50 AM CDT [facility] MPV 10.3 7.4 - 10.4 FL 11/05/2024 5:50 AM CDT [facility] CBC COMMENT NORMAL REFERENCE RANGE NOT ESTABLISHED FOR THE PROPORTIONAL LEUKOCYTE DIFFERENTIAL. 11/05/2024 5:50 AM CDT [facility] NEUTROPHILS % 45.5 % 11/05/2024 5:50 AM CDT [facility] LYMPHOCYTES % 35.0 % 11/05/2024 5:50 AM CDT [facility] MONOCYTES % 11.8 % 11/05/2024 5:50 AM CDT [facility] EOSINOPHILS % 5.9 % 11/05/2024 5:50 AM CDT [facility] BASOPHILS % 1.1 % 11/05/2024 5:50 AM CDT [facility] IMMATURE GRANS % 0.7 % 11/06/19 5:50 AM CDT [facility] NRBC % 0.0 % 11/05/2024 5:50 AM CDT [facility] ABS. NEUTROPHILS 4.84 1.60 - 8.30 x10'3/uL 11/05/2024 5:50 AM CDT [facility] ABS. LYMPHOCYTES 3.72 0.80 - 4.70 x10'3/uL 11/05/2024 5:50 AM CDT [facility] ABS. MONOCYTES 1.25 0.00 - 1.50 x10'3/uL 11/05/2024 5:50 AM CDT [facility] ABS. EOSINOPHILS 0.63(H) 0.00 - 0.40 x10'3/uL 11/05/2024 5:50 AM CDT [facility] ABS. BASOPHILS 0.12 0.00 - 0.20 x10'3/uL 11/05/2024 5:50 AM CDT [facility] ABS. IMMATURE GRANULOCYTES 0.07(H) 0.00 - 0.03 x10'3/uL 11/05/2024 5:50 AM CDT [facility] ABS. NUCLEATED RBC'S 0.00 0.00 - 0.01 x10'3/uL 11/05/2024 5:50 AM CDT [facility] 11/05/2024 5:41 AM CDT Yvette Cunningham MD LABORATORY Final Result [facility] [address] [place] [address], * MRI LUMB SPINE WO CON (11/03/2024 10:00 AM CDT) Anatomical Region Laterality Modality Spine Magnetic Resonan ce 11/03/2024 10:0 0 AM CDT Impressions 11/03/2024 10:03 AM CDT IMPRESSION: Mild to moderate multilevel lumbar spondylosis greatest at L4-5, as described above. Ordered By: BEULAH PARRA Interpreted By: Nate Aldridge MD, 11/03/2024 10:00 AM Narrative 11/03/2024 10:03 AM CDT [facility] [address] [place] [address] Examination: MRI LUMB SPINE WO CON, 11/03/2024 [...] Procedure Note Nate Aldridge MD - 11/03/2024 [facility] [address] [place] [address] Examination: MRI LUMB SPINE WO ABIMBOLA, 11/03/2024 10:00 AM. Technique: Multiplanar multisequence magnetic [...] 136 - 145 MMOL/L 11/03/2024 6:17 AM [facility] POTASSIUM S/P/B 4.1 3.5 - 5.1 MMOL/L 11/03/2024 6:17 AM [facility] CHLORIDE S/P/B 105 98 - 107 MMOL/L 11/03/2024 6:17 AM [facility] CO2 27.9 21.0 - 32.0 MMOL/L 11/03/2024 6:17 AM [facility] GLUCOSE 211(H) 70 - 99 MG/DL 11/03/2024 6:17 AM [facility] Comment: FASTING GLUCOSE 100 TO 125 MG/DL IS CONSISTENT WITH IMPAIRED FASTING GLUCOSE. FASTING GLUCOSE >125 MG/DL IS CONSISTENT WITH DIABETES. RANDOM GLUCOSE >200 MG/DL WITH HYPERGLYCEMIC SYMPTOMS IS CONSISTENT WITH DIABETES. PER ADA GUIDELINES BUN 7 6 - 24 MG/DL 11/03/2024 6:17 AM [facility] CREATININE S/P/B 0.96 0.55 - 1.02 MG/DL 11/03/2024 6:17 AM [facility] CALCIUM S/P/B 9.3 8.4 - 10.5 MG/DL 11/03/2024 6:17 AM [facility] ANION GAP 7.1 5.0 - 15.0 MMOL/L 11/03/2024 6:17 AM [facility] OSMOLALITY (CALC) 294 MOSM/KG 025 6:17 AM [facility] Comment:REFERENCE RANGE NOT ESTABLISHED GFR ESTIMATE 67(L) >89 ML/MIN/1. 73 M2 11/03/2024 6:17 AM [facility] GFR NOTES GFR REFERENCE S: 11/03/2024 6:17 AM [facility] Comment: THE ESTIMATED GFR IS CALCULATED [...] Beulah Parra MD LABORATORY Final Resul t [facility] [address] [place] [address], * (ABNORMAL) URINALYSIS (11/02/2024 3:46 PM CDT) Only the most recent of3 resultswithin the time period is included. COLOR (U) YELLOW 11/02/2024 4:08 PM CDT [facility] TRANSPARENCY CLEAR 11/02/2024 4:08 PM CDT [facility] SPECIFIC GRAVITY (U) 1.030(H) 1.000 - 1.025 11/02/2024 4:08 PM CDT [facility] Comment:EQUAL TO OR GREATER THAN U PH 5.5 5.0 - 8.0 11/02/2024 4:08 PM CDT [facility] LEUKOCYTES (U) NEGATIVE NEGATIVE 11/02/2024 4:08 PM CDT [facility] NITRITES NEGATIVE NEGATIVE 11/02/2024 4:08 PM CDT [facility] PROTEIN RANDOM (U) 2+(A) NEGATIVE 11/02/2024 4:08 PM CDT [facility] GLUCOSE (U) TRACE(A) NEGATIVE 11/02/2024 4:08 PM CDT [facility] KETONES MG/DL (U) 2+(A) NEGATIVE 11/02/2024 4:08 PM CDT [facility] UROBILINOGEN 0.2 <1.0 EU/DL 11/02/2024 4:08 PM CDT [facility] BLOOD (U) NEGATIVE NEGATIVE 11/02/2024 4:08 PM CDT [facility] WBC/HPF OCCASIONAL(A ) 0 - 5 /HPF 11/02/2024 4:08 PM CDT [facility] RBC/HPF NONE SEEN(A) 0 - 5 /HPF 11/02/2024 4:08 PM CDT [facility] EPI/LPF 1+ /LPF 11/02/2024 4:08 PM CDT [facility] BACTERIA (U) TRACE /HPF 11/02/2024 4:08 PM CDT [facility] BILIRUBIN CONF ICTO (U) NEGATIVE NEGATIVE 11/02/2024 4:08 PM CDT [facility] URINE SPECIMEN OBTAINED BY CLEAN CATCH PROCEDURE / Unknown 11/02/2024 3:46 PM CDT Beulah Parra MD URINE ORDERABLES Final Resu lt [facility] [address] [place] [address], [place] [phone] * CULTURE URINE (11/02/2024 3:46 PM CDT) Only the most recent of2 resultswithin the time period is included. SPEC DESCRIPTION URINE CLEAN CATCH 11/02/2024 3:46 PM CDT [facility] SPECIAL REQUESTS NO SPECIAL REQUEST 11/02/2024 3:46 PM CDT [facility] CULTURE RESULT FEW CONTAMINANTS 09/2024 6:36 AM CDT [facility] URINE SPECIMEN OBTAINED BY CLEAN CATCH PROCEDURE / Unknown 11/02/2024 3:46 PM CDT 11/02/2024 6:43 PM CDT Beulah Parra MD MICROBIOLOGY - GENERAL ORDE [facility] Final Result Performing Organization Address City/[facility]/ZIP Co de Phone Number [facility] [address] [place] [address], [place] [phone] [facility] [address] [place] [address], * XR CHEST PORTABLE (11/02/2024 3:00 PM CDT) Anatomical Region Laterality Modality Chest Radiographic Keshia ging 11/02/2024 3:15 PM CDT Impressions 11/02/2024 3:15 PM CDT IMPRESSION: No radiographic evidence of active chest disease. Ordered By: BEULAH PARRA Interpreted By: Escobar Hernandez MD, 11/02/2024 3:15 PM Narrative 11/02/2024 3:15 PM [address] [place] [address] Examination: XR CHEST PORTABLE Exam time: 11/02/2024 [...] Procedure Note Escobar Hernandez MD - 11/02/[address] [place] [address] Examination: XR CHEST PORTABLE Exam time: 11/02/2024 [...] By: Escobar Hernandez MD, 11/02/2024 3:15 PM us Beulah Parra MD GENERAL IMAGING Final Resul t * CULTURE, BACTERIA, BLOOD (11/02/2024 2:24 PM CDT) Only the most recent of2 resultswithin the time period is included. SPEC DESCRIPTION BLOOD 11/02/2024 1:21 PM CDT [facility] SPECIAL REQUESTS NO SPECIAL REQUEST 11/02/2024 1:21 PM CDT [facility] CULTURE RESULT NO GROWTH 5 DAYS 11/07/2024 7:53 PM CDT [facility] BLOOD SPECIMEN OBTAINED FOR BLOOD CULTURE / Unknown 11/02/2024 2:24 PM CDT 11/02/2024 2:25 PM CDT Beulah Parra MD MICROBIOLOGY - GENERAL ORDE [facility] Final Result [facility] [address] [place] [address], [id number] [facility] [address] [place] [address], * (ABNORMAL) Blood gas, venous (11/02/2024 2:16 PM CDT) PH VENOUS 7.31(L) 7.32 - 7.43 11/02/2024 2:28 PM CDT [facility] PCO2 VENOUS 58.0 MMHG 11/02/2024 2:28 PM CDT [facility] Comment:NO REFERENCE RANGE H BEEN ESTABLISHED PO2 VENOUS <30.0 MM HG 11/02/2024 2:28 PM CDT [facility] Comment:NO REFERENCE RANGE H BEEN ESTABLISHED TOTAL CO2 VENOUS 31.0(H) 22.0 - 26.0 MMOL/L 11/02/2024 2:28 PM CDT [facility] BASE EXCESS VENOUS 1.6 MMOL/L 11/02/2024 2:28 PM CDT [facility] Comment:NO REFERENCE RANGE H BEEN ESTABLISHED O2 SAT VENOUS NOT CALCULATED % 025 2:28 PM CDT [facility] Comment:NO REFERENCE RANGE H BEEN ESTABLISHED BICARB VENOUS 29.2(H) 22.0 - 29.0 MMOL/L 11/02/2024 2:28 PM CDT [facility] O2 ADMIN VENOUS 2L 2:16 PM CDT [facility] 11/02/2024 2:16 PM CDT us Beulah Parra MD LABORATORY Final Resul t [facility] [place] [address], * CT HEAD WO CON (11/02/2024 1:59 PM CDT) Only the most recent of2 resultswithin the time period is included. Anatomical Region Laterality Modality Head Computed Tomogra phy 11/02/2024 2:11 PM CDT Impressions 11/02/2024 2:13 PM CDT IMPRESSION: 1) No acute intracranial abnormality is demonstrated. Ordered By: BEULAH PARRA Interpreted By: Adolfo Saunders MD, 11/02/2024 2:11 PM Narrative 11/02/2024 2:13 PM CDT [address] [place] [address] Examination: CT HEAD WO CON Exam time: [...] Procedure Note Adolfo Saunders MD - 11/02/[address] [place] [address] Examination: CT HEAD WO CON Exam time: [...] PM CDT) 11/02/2024 1:51 PM CDT Narrative [facility] - 11/03/2024 5:11 AM CDT [address] [place] [address] Test Date: 2024-11-02 Pat Name: PRAVIN DIMITRY Department: 3 Room: 318 Gender: Female Hood Fitter: : 1965 Requested By: BEULAH PARRA Order Number: [id number] Reading MD: Yang Blanco Measurements Intervals Morrow Rate: 104 P: 30 CA: 132 QRS: 6 QRSD: 78 T: 39 QT: 352 QTc: 464 Interpretive Statements SINUS TACHYCARDIA MINIMAL VOLTAGE CRITERIA FOR LVH, CONSIDER NORMAL VARIANT NONSPECIFIC ST & T-WAVE ABNORMALITY ABNORMAL RHYTHM ECG Procedure Note Yang Blanco MD - 11/03/[address] [place] [address] Test Date: 2024-11-02 Pat Name: PRAVIN MORAES Department: 3 Room: 318 Gender: Female Hood Fitter: : 1965 Requested By: BEULAH PARRA Order Number: [id number] Reading MD: Yang Blanco Measurements Intervals [place] Rate: 104 P: 30 CA: 132 QRS: 6 QRSD: 78 T: 39 QT: 352 QTc: 464 Interpretive Statements SINUS TACHYCARDIA MINIMAL VOLTAGE CRITERIA FOR LVH, CONSIDER NORMAL VARIANT NONSPECIFIC ST & T-WAVE ABNORMALITY ABNORMAL RHYTHM ECG us Beulah Parra MD ECG ORDERABLES Final Resul t [facility] * LACTIC ACID W REFLEX (SEPSIS) (11/02/2024 1:46 PM CDT) LACTIC ACID VENOUS 2.0 0.4 - 2.0 MMOL/L 11/02/2024 3:04 PM CDT [facility] 11/02/2024 1:46 PM CDT us Beulah Parra MD LABORATORY Final Resul t [facility] [address] [place] [address], * TSH W/REFLEX (11/02/2024 1:46 PM CDT) [facility] TSH 1.324 0.358 - 3.740 uIU/ML 11/02/2024 3:06 PM CDT [facility] Comment: FREE T4 NOT INDICATED ASSAY PERFORMED BY CHEMILUMINESCENT IMMUNOASSAY METHODOLOGY USING SIEMENS DIMENSION REAGENT. PATIENT RESULTS DETERMINED BY ASSAYS FROM DIFFERENT MANUFACTURERS AND/OR BY DIFFERENT METHODS MAY NOT BE COMPARABLE. 11/02/2024 1:46 PM CDT us Beulah Parra MD LABORATORY Final Resul t Performing Organization Address City/[facility]/ZIP Co de Phone Number [facility] [address] [place] [address], * PRO-BRAIN NATRIURETIC PEPTIDE (11/02/2024 1:46 PM CDT) [facility] PRO-B TYPE NATRIURETIC PEPTIDE 92 <125 PG/ML 11/02/2024 3:10 PM CDT [facility] Comment: CUT POINTS ESTABLISHED [...] LABORATORY Final Resul t Performing Organization Address City/[facility]/ZIP Co de Phone Number [facility] [address] [place] [address], * TROPONIN, QUANT (11/02/2024 1:46 PM CDT) [facility] TROPONIN I HIGH SENSITIVITY 10 0 - 51 ng/L 11/02/2024 3:10 PM CDT [facility] 11/02/2024 1:46 PM CDT us Beulah Parra MD LABORATORY Final Resul t Performing Organization Address [facility] de Phone Number [facility] [address] [place] [address], * (ABNORMAL) AMMONIA (11/02/2024 1:46 PM CDT) AMMONIA <10(L) 11 - 32 UMOL/L 11/02/2024 2:52 PM CDT [facility] 11/02/2024 1:46 PM CDT us Beulah Parra MD LABORATORY Final Resul t Performing Organization Address [facility] de Phone Number [facility] [address] [place] [address], * (ABNORMAL) MAGNESIUM (11/02/2024 1:46 PM CDT) MAGNESIUM 1.7(L) 1.8 - 2.4 MG/DL 11/02/2024 3:10 PM CDT [facility] 11/02/2024 1:46 PM CDT Beulah Parra MD LABORATORY Final Resul t Performing Organization Address [facility] de Phone Number [facility] [address] [place] [phone], * (ABNORMAL) LIPASE (11/02/2024 1:46 PM CDT) LIPASE 13(L) 16 - 77 UNITS/L 11/02/2024 3:10 PM CDT [facility] 11/02/2024 1:46 PM CDT us Beulah Parra MD LABORATORY Final Resul t Performing Organization Address City/[facility] Co de Phone Number [facility] [address] [place] [address], * (ABNORMAL) SALICYLATE (11/02/2024 1:46 PM CDT) Only the most recent of2 resultswithin the time period is included. SALICYLATES 1.8(L) 2.8 - 20.0 MG/DL 11/02/2024 3:06 PM CDT [facility] 11/02/2024 1:46 PM CDT us Beulah Parra MD LABORATORY Final Resul t Performing Organization Address [facility] Co de Phone Number [facility] [address] [place] [address], * ETHANOL (11/02/2024 1:46 PM CDT) Only the most recent of2 resultswithin the time period is included. ALCOHOL S/P/B <0.003 <0.003 G/DL 11/02/2024 3:08 PM CDT [facility] 11/02/2024 1:46 PM CDT us Beulah Parra MD LABORATORY Final Resul t Performing Organization Address City/[facility]/ZIP Co de Phone Number [facility] [address] [place] [address], [place] [phone] * CK (CPK) (11/02/2024 1:46 PM CDT) CPK 75 26 - 192 U/L 11/02/2024 3:10 PM CDT [facility] 11/02/2024 1:46 PM CDT us Beulah Parra MD LABORATORY Final Resul t Performing Organization Address [facility] de Phone Number [facility] Critical access hospital[address] [place] [address], * (ABNORMAL) ACETAMINOPHEN (11/02/2024 1:46 PM CDT) Only the most recent of2 resultswithin the time period is included. ACETAMINOPHEN S/P/B 2.5(L) 10.0 - 30.0 MCG/ML 11/02/2024 3:06 PM CDT [facility] 11/02/2024 1:46 PM CDT Beulah Parra MD LABORATORY Final Resul t Performing Organization Address [facility] de Phone Number [facility] [address] [place] [phone], * THYROID STIM HORMONE, TSH (10/02/2024 12:42 PM CDT) TSH 1.144 0.358 - 3.740 uIU/ML 10/02/2024 1:21 PM CDT [facility] Comment: ASSAY PERFORMED BY CHEMILUMINESCENT IMMUNOASSAY METHODOLOGY USING SIEMENS DIMENSION REAGENT. PATIENT RESULTS DETERMINED BY ASSAYS FROM DIFFERENT MANUFACTURERS AND/OR BY DIFFERENT METHODS MAY NOT BE COMPARABLE. 10/02/2024 12:4 2 PM CDT Mike Dunbar MD LABORATORY Final Result Performing Organization Address [facility] Co de Phone Number [facility] [address] [place] [address], * CORONAVIRUS (COVID-19) ANTIGEN (10/02/2024 12:30 PM CDT) CORONAVIRUS ANTIGEN IA NEGATIVE NEGATIVE 10/02/2024 1:17 PM CDT [facility] Comment: NEGATIVE RESULTS DO [...] SPECIMEN TYPE NASAL 10/02/2024 12:32 PM CDT [facility] NASAL NASAL STRUCTURE / Unknown 10/02/2024 12:30 PM CDT Mike Dunbar MD MICROBIOLOGY - GENERAL ORDERA BLES Final Result [facility] [address] [place] [address], * (ABNORMAL) DRUG SCREEN RAPID (10/02/2024 12:30 PM CDT) Pathologist [facility] CANNABINOIDS SCREEN (U) POSITIVE(A) NEGATIVE 10/02/2024 1:52 PM CDT [facility] PHENCYCLIDINE PCP (U) NEGATIVE NEGATIVE 10/02/2024 1:52 PM CDT [facility] COCAINE METABOLITES (U) NEGATIVE NEGATIVE 10/02/2024 1:52 PM CDT [facility] METHAMPHETAMINE SCREEN (U) NEGATIVE NEGATIVE 10/02/2024 1:52 PM CDT [facility] OPIATE SCREEN (U) NEGATIVE NEGATIVE 025 1:52 PM CDT [facility] AMPHETAMINE SCREEN (U) POSITIVE(A) NEGATIVE 10/02/2024 1:52 PM CDT [facility] BENZODIAZEPINES SCREEN (U) POSITIVE(A) NEGATIVE 10/02/2024 1:52 PM CDT [facility] TRICYCLIC ANTIDEPRESSANT SCREEN (U) POSITIVE(A) NEGATIVE 10/02/2024 1:52 PM CDT [facility] METHADONE (U) NEGATIVE NEGATIVE 10/02/2024 1:52 PM CDT [facility] BARBITURATES SCREEN (U) NEGATIVE NEGATIVE 10/02/2024 1:52 PM CDT [facility] OXYCODONE SCREEN (U) NEGATIVE NEGATIVE 10/02/2024 1:52 PM CDT [facility] URINE TOX COMMENT THIS TEST METHODOLOGY IS DESIGNED AND OFFERED A RAPID TURNAROUND, QUALITATIVE SCREENING PROCEDURE TO AID IN THE IMMEDIATE MEDICAL ASSESSMENT OF PATIENTS SUSPECTED OF SUBSTANCE ABUSE. 10/02/2024 12:44 PM CDT [facility] Comment: CLINICAL CONSIDERATION AND PROFESSIONAL JUDGMENT MUST BE APPLIED TO ANY DRUG OF ABUSE TEST RESULT, BOTH POSITIVE AND NEGATIVE. CONFIRMATORY QUANTITATIVE RESULTS ARE AVAILABLE THROUGH OUR [facility]. URINE SPECIMEN / Unknown 10/02/2024 12:30 PM CDT Mike Dunbar MD URINE ORDERABLES Final Result Performing Organization Address City/[facility]/ZIP Co de Phone Number [facility] [address] [place] [address], * (ABNORMAL) HEMOGLOBIN, GLYCOSYLATED (04/11/2024 11:15 PM TRANSPORT MANAGER) HGB A1C 7.0(H) <5.7 % 04/12/2024 12:08 AM TRANSPORT MANAGER [facility] ESTIMATED AVG GLUCOSE 154(H) 74 - 114 MG/DL 04/12/2024 12:08 AM TRANSPORT MANAGER [facility] 04/11/2024 11:1 5 PM TRANSPORT MANAGER Maris Cardenas MD LABORATORY Final Result Performing Organization Address City/[facility]/ZIP Co de Phone Number [facility] [address] [place] [address], [id number] * HEPATITIS PANEL,ACUTE (08/17/2023 6:53 PM CDT) HEPATITIS B SURFACE AG NON-REACT MYCHAL NON-REACT MYCHAL 08/17/2023 8:17 PM CDT [facility] Comment:HBsAg NOT DETECTED. HEP B CORE IGM NON-REACT MYCHAL NON-REACT MYCHAL 08/17/2023 8:17 PM CDT [facility] Comment: IgM ANTI HBc NOT DETECTED. DOES NOT EXCLUDE THE POSSIBILITY OF EXPOSURE TO OR INFECTION WITH HBV. NO RETEST REQUIRED. HIGH DOSES OF BIOTIN MAY INTERFERE WITH THIS TEST RESULT. CORRELATION TO CLINICAL HISTORY AND PRESENTATION RECOMMENDED. HAV IGM NON-REACT MYCHAL NON-REACT MYCHAL 08/17/2023 8:17 PM CDT [facility] Comment: IgM ANTI HAV NOT DETECTED. DOES NOT EXCLUDE THE POSSIBILITY OF EXPOSURE TO OR INFECTION WITH HAV. LEVELS OF IgM ANTI HAV MAY BE BELOW THE CUTOFF IN EARLY INFECTION. HEPATITIS C AB NON-REACT MYCHAL NON-REACT MYCHAL 08/17/2023 8:17 PM CDT [facility] Comment: ANTIBODIES TO HCV NOT DETECTED. DOES NOT EXCLUDE THE POSSIBILITY OF EXPOSURE TO HCV. 08/17/2023 6:53 PM CDT us Wil Alexander NP LABORATORY Final Resul t [facility] [address] [place] [phone], [id number] * MG SCREENING W SREE JUAN DIGI [...] Tadeo MD, 03/22/2023 10:57 AM us Alethea DUFFY MAMMO Final Resul t from Last 3 Months or Most Recently Relevant to Health Maintenance Insurance [facility] Advance Directives * Full Code (Latest [...] 1:05 AM 04/28/2024 3:59 PM Care Teams Payroll Manager Relationship Specialty Start Date End Date Yvette Cunningham MD [address] [place] [address] PCP - General FAMILY PRACTICE 07/08/24 Alethea Roberto APNP [address] [place] [address] [place] [address] Nurse Practitioner NURSE PRACTITIONER 03/09/21
--- OUTSIDE RECORDS SUMMARY | 2024-12-23 00:18 | XMS_ITS | Clinical Summary ---
Author Organization [facility] Address [address] [place] [address] Care Team Providers Care Sports Equipment Supervisor Name Role Phone Pardeep Alethea ERNESTO Primary Care Provider [phone] Allergies Active Allergy Reactions Criticality Noted Date [...] times a day 1 025 Discontin ued(Alter hcris therapy) Active Problems Problem Noted Date Diagnosed Date Medtronic 780G Insulin pump in place 05/11/2021 Assessment & Plan (05/01/2023 9:38 AM CLIENT EXECUTIVE): This is a chronic condition which is [...] a recent stroke. 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 No changes made to insulin pump. Assessment & Plan (06/28/2021 2:03 PM CLIENT EXECUTIVE): This is a chronic condition which is [...] pump. Assessment & Plan (05/11/2021 1:59 PM CLIENT EXECUTIVE): This is a chronic condition which is stable, controlled, uncontrolled with hyperglycemia, improving, but not at goal. Download reviewed. Type of insulin pump- wesync.[email or web address] 630G Pump settings : Basal 2units IC [...] 02/18/2017 Assessment & Plan (05/01/2023 9:38 AM CLIENT EXECUTIVE): This is a chronic condition which is [...] prescribed. Assessment & Plan (06/28/2021 2:03 PM CLIENT EXECUTIVE): This is a chronic condition which is at goal. Goal is less than 70. Personally reviewed lipid panel. [id number] on crestor. Encouraged to eat healthy, include fresh fruits and vegetables daily and avoid eating fried foods more than once per week. Encouraged to take medications as prescribed. Assessment & Plan (05/11/2021 1:12 PM CLIENT EXECUTIVE): This is a chronic condition which is [...] 02/18/2017 Assessment & Plan (05/01/2023 9:35 AM CLIENT EXECUTIVE): This is a chronic condition which is [...] eye exam. last dilated eye exam was [facility] [place] Monofilament foot exam completed. protective senses intact [...] worsening and not at goal. Personally reviewed G8b-[id number] to 9% not at goal less than [...] which is not at goal. Personally reviewed [id number]-trjbhmgpg to 9% not at goal less than [...] CVA Assessment & Plan (06/28/2021 2:00 PM CLIENT EXECUTIVE): This is a chronic condition which is [...] CVA Assessment & Plan (05/11/2021 1:09 PM CLIENT EXECUTIVE): This is a chronic condition which is [...] scheduled Assessment & Plan (06/28/2021 2:04 PM CLIENT EXECUTIVE): Improving. Continue to see therapy as scheduled Assessment & Plan (05/11/2021 1:10 PM CLIENT EXECUTIVE): This is a chronic condition. Seeing speech therapy. Give extra time to allow her to get her words out Hypertension 02/18/2017 05/11/2021 Assessment & Plan (05/11/2021 1:11 PM CLIENT EXECUTIVE): This is a chronic condition which is at goal Goal is <140/90 Personally reviewed labs. B/p - 128/66. Stable on lisinopril. Avoid caffeine, caffeine will raise blood pressure and excessive alcohol consumption. Monitor your weight and B/P. Encouraged to take medications as prescribed. Encounters Date Type Department Care Team Description 12/22/2024 7:50 AM CDT Office Visit [facility] Orthopaedic Surgery [address] [place] [address] Advanced Medicine 6th [place] [address] [place] [address] Walter Patel MD Low back pain, unspecified back pain laterality, unspecified chronicity, unspecified whether sciatica present (Primary Dx); Spinal stenosis, unspecified spinal region; Low back pain with left-sided sciatica, unspecified back pain laterality, unspecified chronicity 12/22/2024 7:15 AM CDT Hospital Encounter [facility] [address] [place] [address] Low back pain, unspecified back pain laterality, unspecified chronicity, unspecified whether sciatica present 12/22/2024 Orders Only [facility] Orthopaedic Surgery [address] [place] [address] for Advanced Medicine 6th [place] [address] [place] [address] Walter Patel MD Low back pain with left-sided sciatica, unspecified back pain laterality, unspecified chronicity (Primary Dx); Spinal stenosis, unspecified spinal region; Cyst of lumbar facet joint 12/09/2024 10:21 AM CDT - 12/09/2024 11:59 PM CDT Hospital Encounter [facility] [address] [place] [address] Discharge Disposition: Discharge to home or self care 12/09/2024 10:21 AM CDT - 12/09/2024 11:59 PM CDT Hospital Encounter [facility] ([facility]) [address] [place] [address] Discharge Disposition: Discharge to home or self care 12/09/2024 10:20 AM CDT - 12/09/2024 11:59 PM CDT Hospital Encounter [facility] ([facility]) [address] [place] [address] Discharge Disposition: Discharge to home or self care 12/09/2024 10:19 AM CDT - 12/09/2024 11:59 PM CDT Hospital Encounter [facility] ([facility]) [address] [place] [address] Discharge Disposition: Discharge to home or self care 12/09/2024 10:19 AM CDT - 12/09/2024 11:59 PM CDT Hospital Encounter [facility] ([facility]) [address] [place] [address] Discharge Disposition: Discharge to home or self care 12/09/2024 Telephone [facility] Orthopaedic Surgery [address] [place] [phone] Ely Montes, RN Dr. Patel Appointment Questions from Last 3 Months Surgical [...] on file Legal Sex Female 4:58 PM CLIENT EXECUTIVE Gender Identity Not on file Sexual Orientation Not on file Obstetrics History Last Filed Vital Signs Vital Sign Reading Time Taken Comments Blood Pressure 134/74 05/01/2023 8:59 AM CLIENT EXECUTIVE Pulse 68 12/07/2017 5:30 PM CDT Temperature 36.1 C (97 F) 12/07/2017 4:41 PM CDT Respiratory Rate 18 12/07/2017 5:30 PM CDT Oxygen Saturation 92% 12/07/2017 6:00 PM CDT Inhaled Oxygen Concentration - - Weight 77.6 kg (171 lb) 12/22/2024 8:01 AM CDT Height 154.9 cm (5' 1) 12/22/2024 8:01 AM CDT Body Mass Index 32.31 12/22/2024 8:01 AM CDT Plan of Treatment Health Maintenance [...] 06/06/2021, Additional history exists Covid-19 Vaccine (3 2023-2 5 season) 2024 09/06/2020, 08/09/2020 Breast Cancer Screening-Mammogram 03/22/2024 03/22/2023, 03/22/2023, 12/21/2021 Foot Exam 05/01/2024 05/01/2023, 08/02/2023, 10/13/2021, Additional history exists Influenza Vaccine (#1) [...] HEMOGLOBIN A1C Routine 05/01/2023 9 :11 AM CLIENT EXECUTIVE Type 2 diabetes mellitus with stage 3a [...] only and have not been reviewed by [facility]iology. There will be no report generated by a [facility] Radiologist. Narrative RAD_PACS_[facility] - 12/09/2024 10:21 AM CDT EXAMINATION: Images For Reference Purposes Only Walter Patel MD IMG XR PROCEDURES Fi nal Result [facility] * Neuro CT Outside Reference (12/09/2024 10:21 AM CDT) Impressions RAD_PACS_EULALIAH - 12/09/2024 10:21 AM CDT These images are for Reference purposes only and have not been reviewed by [facility]iology. There will be no report generated by a [facility] Radiologist. Narrative [facility] - 12/09/2024 10:21 AM CDT EXAMINATION: Images For Reference Purposes Only Walter Patel MD IMG CT PROCEDURES Fi nal Result Performing Organization Address [facility] Co de Phone Number [facility] * Neuro MR Outside Reference (12/09/2024 10:20 AM CDT) Impressions [facility]_EULALIA[facility] - 12/09/2024 10:20 AM CDT These images are for Reference purposes only and have not been reviewed by [facility]iology. There will be no report generated by a [facility] Radiologist. Narrative [facility]_P[facility] - 12/09/2024 10:20 AM CDT EXAMINATION: Images For Reference Purposes Only Walter Patel MD IMG MRI PROCEDURES F inal Result Performing Organization Address [facility] de Phone Number [facility] * Neuro MR Outside Reference (12/09/2024 10:19 AM CDT) Impressions RAD_PACS_TERESITA - 12/09/2024 10:19 AM CDT These images are for Reference purposes only and have not been reviewed by [facility]iology. There will be no report generated by a [facility] Radiologist. Narrative [facility] - 12/09/2024 10:19 AM CDT EXAMINATION: Images For Reference Purposes Only Walter Patel MD IMG MRI PROCEDURES F inal Result Performing Organization Address [facility] Co de Phone Number [facility] * Neuro MR Outside Reference (12/09/2024 10:19 AM CDT) Impressions [facility] - 12/09/2024 10:19 AM CDT These images are for Reference purposes only and have not been reviewed by [facility] Radiology. There will be no report generated by a [facility] Radiologist. Narrative [facility] - 12/09/2024 10:19 AM CDT EXAMINATION: Images For Reference Purposes Only Walter Patel MD IMG MRI PROCEDURES F inal Result Performing Organization Address [facility]/ZIP Co de Phone Number [facility] * POCT hemoglobin A1c (05/01/2023 9:11 AM CLIENT EXECUTIVE) Hemoglobin A1C, POC 6.5 % Blood 05/01/2023 9:11 AM CLIENT EXECUTIVE Harleen Butler NP POINT OF CARE TEST ORDERABLES F inal Result * Diabetic Eye Exam (03/26/2023) 03/26/2023 Result [facility] Historical Provider HEALTH MAINTENANCE Final Result * [...] - - [facility] SCRIBED eGFR in NonAfrican Liberian 51 - - - [facility] Blood 12/19/2022 Historical Provider LAB BLOOD ORDERABLES Gauri l Result [facility] from Last 3 Months or Most Recently Relevant to Health Maintenance Insurance [facility] [employer] Care Teams Sports Equipment Supervisor Relationship Specialty Start Date End Date [place] [address] PCP - General Family Medicine 05/01/23
--- OUTSIDE RECORDS SUMMARY | 2024-12-23 00:18 | XMS_ITS | Encounter Summary ---
Author Organization [facility] Address [address] [place] [address] Phone Care Team Providers Care Audio Specialist Name Role Phone Alethea Roberto NP Primary Care Provider [phone] Reason for Referral * Diagnostic Imaging (Routine) - Closed Specialty Diagnoses / Procedures Referred By Contac t Referred To Contact Diagnoses Low back pain, unspecified back pain laterality, unspecified chronicity, unspecified whether sciatica present Procedures XR Scoliosis 6 or More Views Walter Patel MD [address] [employer] [facility] [place] [address] Phone: tel: fax: [facility] Referral ID Status Reason Start Date Expiration Date Visits Re quested Visits Authorized [id number] Closed 12/18/2024 01/17/2026 1 1 Reason for Visit * Reason Comments Pain * Consultation (Routine) - Closed Specialty Diagnoses / Procedures Referred By Contac t Referred To Contact Orthopedic Surgery Diagnoses Spinal stenosis, unspecified spinal region Low back pain with left-sided sciatica, unspecified back pain laterality, unspecified chronicity Alethea Roberto NP [address] [facility] [place] [address] Phone: tel: fax: Walter Patel MD [address] [employer] DEPT ORTHOPAEDIC SURGERY, [facility] [[email or web address] [place] [address] Phone: tel: fax: Referral ID Status Reason Start Date Expiration Date V isits Requested Visits Authorized [id number] Closed Specialty Services Required 11/11/2024 12/11/2025 1 1 Encounter Details Date Type Department Care Team (Late st Contact Info) Description 12/22/2024 7:50 AM CDT Office Visit [facility] Orthopaedic Surgery [address] [facility] 6th [place] [address] [place] [address] Walter Patel MD [address] [facility] [address] Low back pain, unspecified back pain laterality, unspecified chronicity, unspecified whether sciatica present (Primary Dx); Spinal stenosis, unspecified spinal region; Low back pain with left-sided sciatica, unspecified back pain laterality, unspecified chronicity Social History Tobacco Use Types Packs/Day Years Used Date Smoking Tobacco: Former Cigarettes Q uit: 01/10/2020 Tobacco Cessation:Counseling Given: Not Answered Comments No Sex and Gender Information Value Date Recorded Sex Assigned at Not on file Legal Sex Female 4:58 PM INSPECTOR RETURNED MATERIALS Gender Identity Not on file Sexual Orientation Not on file documented as of this encounter Last Filed Vital Signs Vital Sign Reading Time Taken Comments Blood Pressure - - Pulse - - Temperature - - Respiratory Rate - - Oxygen Saturation - - Inhaled Oxygen Concentration - - Weight 77.6 kg (171 lb) 12/22/2024 8:01 AM CDT Height 154.9 cm (5' 1) 12/22/2024 8:01 AM CDT Body Mass Index 32.31 12/22/2024 8:01 AM CDT documented in this encounter Patient Instructions * Patient Instructions* Rocio Pompa - 12/22/2024 7:50 AM CDT Thank you for your visit today. Dr. King has recommended the following treatment: Referral to pain management for lumbar injection. Please call [phone] for scheduling. Please let me know if you have any questions. Kathy Pompa, RN, BSN Nursing Independent Contractor Orthopaedic Spine Division Nurse Clinical Coordinator Department of Orthopedic Spine Surgery [facility] documented in this encounter Plan of Treatment Not on file documented as of this encounter Results * XR Scoliosis 6 [...] pain laterality, unspecified chronicity, unspecified whether sciatica present- Primary Spinal stenosis, unspecified spinal region Low back pain with left-sided sciatica, unspecified back pain laterality, unspecified chronicity Low back pain, unspecified back pain laterality, unspecified chronicity, unspecified whether sciatica present documented in this encounter Discontinued Medications Medication Sig Discontinue Reason Start Date End Da te ondansetron (ZOFRAN) 4 mg tablet Take 1 tablet (4 mg total) by mouth every 8 (eight) hours as needed for nausea or vomiting. Alternate therapy 12/07/2017 12/22/2024 cyclobenzaprine (FLEXERIL) 10 mg tablet Take 1 tablet (10 mg total) by mouth 3 (three) times a day as needed Alternate therapy 03/12/2019 12/22/2024 omeprazole (PriLOSEC) 20 mg capsule Take 1 capsule (20 mg total) by mouth 2 (two) times a day Alternate therapy 11/16/2020 12/22/2024 documented as of this encounter Historical Medications * This list may reflect changes made after this encounter. predniSONE (DELTASONE) 20 mg tablet Take 1 tablet (20 mg) by mouth daily 09/21/[address] (PROTONIX) 40 mg EC tablet Take 1 tablet (40 mg total) by mouth every 12 (twelve) hours 10/19/2024 oxyCODONE-acetaminop hen (PERCOCET) 5-325 mg per tablet Take 1 tablet by mouth every 12 (twelve) hours as needed ondansetron ODT (ZOFRAN-ODT) 4 mg disintegrating tablet DISSOLVE 1 TABLET ON THE TONGUE EVERY 8 HOURS NEEDED FOR NAUSEA OR VOMITING 10/19/2024 OLANZapine (ZyPREXA) 5 mg tablet Take 1 tablet (5 mg total) by mouth daily 11/05/2024 methocarbamoL (ROBAXIN) 500 mg tablet Take 1 tablet (500 mg total) by mouth 3 (three) times a day as needed 09/14/2024 magnesium oxide (MAG-OX) 400 mg (241.3 mg elemental magnesium) tablet Take 1 tablet (400 mg total) by mouth 2 (two) times a day 11/24/2024 LANTUS 100 unit/mL (3 mL) pen for injection INJECT 10 UNITS UNDER THE SKIN EVERY MORNING 10/19/2024 cephalexin (KEFLEX) 500 mg capsule 10/02/2024 acetaminophen (TYLENOL) 500 mg tablet Take 1 tablet (500 mg total) by mouth every 6 (six) hours as needed added in this encounter Orders Outpatient Referral Count Last Ordered Date Fir st Ordered Date AMB REFERRAL TO ORTHOPEDIC SPINE 1 12/23/19 25 documented in this encounter Care Teams Audio Specialist Relationship Specialty Start Date End Date Alethea Roberto NP [address] [place] [address] PCP - General Family Medicine 05/01/23 documented as of this encounter
--- OUTSIDE RECORDS SUMMARY | 2024-12-23 00:18 | XMS_ITS | Encounter Summary ---
Author Organization [facility] Address [address] [place] [address] Care Team Providers Care Well Service Pump Equipment Operator Name Role Phone Alethea Roberto Unavailable [phone] Alethea Roberto Primary Care Provider Yvette Cunningham MD Primary Care Provider Encounter Details Date Type Department Care Team (Late st Contact Info) Description 11/29/2021 CANDDi Message [facility] Patient Accounts [address] [place] [address] [facility] Provider Payment Plan - past due Social [...] Sex Assigned at Female 06/16/2024 3:02 PM STUCCO APPLICATOR Legal Sex Female 10:13 AM CDT Gender [...] Rule Out 04/10/2024 04/10/2024 04/10/2024 12:09 PM STUCCO APPLICATOR COVID-19 Rule Out 10/02/2024 10/02/2024 10/02/2024 1:17 PM CDT documented as of this encounter Care Teams Well Service Pump Equipment Operator Relationship Specialty Start Date End Date Alethea Roberto APNP [address] [place] [address] PCP - General NURSE PRACTITIONER 02/18/23 07/07/24 Yvette Cunningham MD [address] [place] [address] PCP - General FAMILY PRACTICE 07/08/24 Alethea Roberto APNP [address] [place] [address] Nurse Practitioner NURSE PRACTITIONER 03/09/21 documented as of this encounter
--- OUTSIDE RECORDS SUMMARY | 2024-12-23 00:18 | XMS_ITS | Encounter Summary ---
Author Organization [facility] Address [address] [place] [address] Care Team Providers Care Rib Bender Name Role Phone Alethea Roberto Unavailable [phone] Alethea Roberto Primary Care Provider Yvette Cunningham MD Primary Care Provider [phone] Encounter Details Date Type Department Care Team (Late st Contact Info) Description 06/17/2024 Sumomi Message Enc [facility] [address], [facility] [address] [place] [address] Kasey Newberry PA [address] [place] [address] Visit Follow Up Social History Tobacco Use [...] from your doctor or pharmacy? Never 04/11/2024 [facility] Utilities Answer Date Recorded In the [...] week 04/11/2024 How often do you attend [facility] or christianity services? Patient declined 04/11/2024 Do you belong to any clubs o r organizations such as scientology groups, unions, fraternal or athletic groups, or [...] and heating? Not hard at all 04/11/2024 [facility] Occupat ional Health - Occupational Stress [...] Sex Assigned at Female 06/16/2024 3:02 PM ASSISTANT PROFESSOR OF GEOGRAPHY Legal Sex Female 10:13 AM CDT Gender [...] documented as of this encounter Care Teams Rib Bender Relationship Specialty Start Date End Date Alethea Roberto APNP [address] [place], [place] [address] [address] PCP - General NURSE PRACTITIONER 02/18/23 07/07/24 Yvette Cunningham MD [facility] [place] [address] PCP - General FAMILY PRACTICE 07/08/24 Alethea Roberto APNP [address] [place], [place] [address] [place] [address] Nurse Practitioner NURSE PRACTITIONER 03/09/21 documented as of this encounter
--- OUTSIDE RECORDS SUMMARY | 2024-12-23 00:18 | XMS_ITS | Encounter Summary ---
Author Organization [facility] Address [address] [place] [address] Care Team Providers Care Vault Worker Name Role Phone Alethea Roberto Unavailable [phone] Alethea Roberto Primary Care Provider Yvette Cunningham MD Primary Care Provider [phone] Encounter Details Date Type Department Care Team (Late st Contact Info) Description 02/19/2022 Vivocha Message Enc [facility] [address], [address] [place] [address] Ericka Acosta, [facility] [address] [place] [address] [place] [address] Visit Follow Up Social History Tobacco Use [...] Sex Assigned at Female 06/16/2024 3:02 PM BULK SEALER Legal Sex Female 10:13 AM CDT Gender [...] AM PABLOT Kylie Nuñez RN Active * [place] Suicide Severity Rating Scale (Screener/Recent Self-Report) Question [...] Rule Out 04/10/2024 04/10/2024 04/10/2024 12:09 PM BULK SEALER COVID-19 Rule Out 10/02/2024 10/02/2024 10/02/2024 1:17 PM CDT documented as of this encounter Care Teams Vault Worker Relationship Specialty Start Date End Date [place] [address] PCP - General NURSE PRACTITIONER 02/18/23 07/07/24 Yvette Cunningham MD [address] [place] [id number] PCP - General FAMILY PRACTICE 07/08/24 Alethea Roberto APNP [address] [place] [address] Nurse Practitioner NURSE PRACTITIONER 03/09/21 documented as of this encounter
--- OUTSIDE RECORDS SUMMARY | 2024-12-23 00:18 | XMS_ITS | Encounter Summary ---
Author Organization [facility] Address [address] [place] [address] Care Team Providers Care Insulation Cupola Charger Name Role Phone Jed Gale MD Primary Care Provider [phone] Alethea Roberto Primary Care Provider Alethea Roberto Unavailable [phone] Alethea Roberot Primary Care Provider [phone] Yvette Cunningham MD Primary Care Provider [phone] Encounter Details Date Type Department Care Team (Late st Contact Info) Description 11/08/2018 Abstract [facility] CONVERSION [address] [place] [address] , Generic Conversion, Social History Tobacco Use Types Packs/Day Years Used Date Smoking Tobacco: Never Assessed Comments Unknown Sex and Gender Information Value Date Recorded Sex Assigned at Female 06/16/2024 3:02 PM WASTEWATER ANALYST LAB ANALYST Legal Sex Female 10:13 AM CDT Gender Identity Not on file Sexual Orientation Not on file documented as of this encounter Plan of Treatment Not on file documented as of this encounter Visit Diagnoses Not on filedocumented in this encounter Additional Health Concerns Infection Onset Date Last Indicated Resolved Time COVID-19 Rule Out 05/06/2020 05/06/2020 05/06/2020 2:48 PM WASTEWATER ANALYST LAB ANALYST COVID-19 Rule Out 10/29/2020 10/29/2020 10/29/2020 7:37 PM CDT COVID-19 Rule Out 02/28/2022 02/28/2022 02/28/2022 10:20 AM CDT COVID-19 Rule Out 04/10/2024 04/10/2024 04/10/2024 12:09 PM WASTEWATER ANALYST LAB ANALYST COVID-19 Rule Out 10/02/2024 10/02/2024 10/02/2024 1:17 PM CDT documented as of this encounter Care Teams Insulation Cupola Charger Relationship Specialty Start Date End Date Jed Gale MD [address] [place] [address] PCP - General FAMILY PRACTICE 03/02/19 05/05/20 [place] [address] PCP - General NURSE PRACTITIONER 05/06/20 03/08/21 [place] [address] PCP - General NURSE PRACTITIONER 02/18/23 07/07/24 Yvette Cunningham MD [address] [place] [address] PCP - General FAMILY PRACTICE 07/08/24 Alethea Roberto APNP [address] [place] [address] Nurse Practitioner NURSE PRACTITIONER 03/09/21 documented as of this encounter
--- NOTE | 2024-12-23 00:39 | ED.GENADULT ---
HPI - General Adult General Chief complaint: Abdominal Pain Stated complaint: abdominal pain History of Present Illness HPI narrative: Pravin is a 60F with a PMH of Memory loss, depression, HTN, HLD, GERD and insulin dependent diabetes that presented to the ED with 2 days of frequent non-bloody vomiting and watery diarrhea. It continued to get worse so she came in. There is no fevers, melena, hematochezia, hematemesis, CP or dyspnea. Related Data Home Medications ?Medication ?Instructions ?Recorded ?Confirmed ?Last Taken ?Type albuterol sulfate 90 mcg/actuation 2 puff inhalation Q4-5H PRN 04/14/21 12/14/24 11/11/24 History aerosol inhaler Shortness Of Breath cyclobenzaprine 10 mg tablet 10 mg PO TID PRN Muscle Spasm 04/14/21 12/14/24 11/07/24 History furosemide 20 mg tablet 20 mg PO DAILY 04/14/21 12/14/24 11/13/24 History insulin aspart U-100 100 unit/mL 1 sliding scale dose subcut 04/14/21 12/14/24 Unknown History subcutaneous solution (Novolog USEASDIRECTD U-100 Insulin aspart) lisinopril 30 mg tablet 30 mg PO DAILY 04/14/21 12/14/24 11/13/24 History melatonin 10 mg tablet 10 mg PO HS 04/14/21 12/14/24 11/13/24 History rosuvastatin 20 mg tablet 20 mg PO HS 04/14/21 12/14/24 11/13/24 History amlodipine 10 mg tablet 10 mg PO DAILY 10/18/24 12/14/24 11/13/24 History aspirin 81 mg chewable tablet 81 mg PO DAILY 10/18/24 12/14/24 11/13/24 History (Aspirin Childrens) calcium carbonate (Calcium 500) 500 mg PO DAILY 10/18/24 12/14/24 11/13/24 History fluticasone 500 mcg-salmeterol 50 1 inh inhalation Q12H 10/18/24 12/14/24 11/13/24 History mcg/dose blistr powdr for inhalation (Wixela Inhub) metoprolol succinate 50 mg 50 mg PO DAILY 10/18/24 12/14/24 11/13/24 History tablet,extended release 24 hr buspirone 15 mg tablet 15 mg PO BID 11/17/24 12/14/24 Unknown History fluoxetine 20 mg capsule 20 mg PO DAILY 11/17/24 12/14/24 Unknown History fluoxetine 40 mg capsule (Prozac) 40 mg PO HS 11/17/24 12/14/24 Unknown History gabapentin 100 mg capsule 100 mg PO TID 11/17/24 12/14/24 Unknown History olanzapine 5 mg tablet 5 mg PO HS 11/17/24 12/14/24 Unknown History oxycodone-acetaminophen 5 mg-325 1 tablet PO Q12H PRN pain 11/17/24 12/14/24 Unknown History mg tablet Allergies Allergy/AdvReac Type Severity Reaction Status Date / Time Sulfa (Sulfonamide Allergy Unknown Rash Verified 12/23/24 00:25 Antibiotics) Latex, Natural Rubber Allergy Swelling Verified 12/23/24 00:25 of Lip/Tongue/Throat Review of Systems Review of Systems: All systems reviewed & are unremarkable except as noted in HPI and below PMFSH Past Medical History Medical History Trimalleolar fracture of right ankle Morbid obesity with BMI of 50.0-59.9, adult Arthritis Dyspnea on exertion COPD (chronic obstructive pulmonary disease) with chronic bronchitis Osteopenia Chronic back pain Fibromyalgia Displaced bimalleolar fracture of right ankle Hemorrhoids GERD (gastroesophageal reflux disease) Diabetes Torticollis Depression with suicidal ideation CVA (cerebral vascular accident) Dyslipidemia Hypertension Surgical History Surgical History Hx of cholecystectomy Family History Family History Father Alzheimer dementia Mother Parkinson's disease Mother No problems noted. Other Unknown family medical history Social History Social History Smoking status: Former smoker Tobacco type: cigarettes Smoking end date: 06/03/22 Alcohol intake: never Substance use: current Substance use type: marijuana Other substance usage details: USING [employer] Last use: 11/10/2024 Do You Feel Safe in your Home?: Yes Lack of Transportation: No Lack of Food: Never True Current Housing: I Have Housing Concerned About Future Housing: No Difficulty Paying Gas/Electric Bills: No Difficulty Paying for Meds: No Currently Unemployed: No Education: Decline to Answer Difficulty w/ Childcare or Family Care: No Spiritual care concerns: No Exam Const: General: cooperative, healthy appearing, comfortable, no acute distress, well developed, alert, awake and Physically active Orientation/consciousness: oriented to person, oriented to place and oriented to time HENMT: Head: normal to inspection, normocephalic and atraumatic Ears: hearing grossly normal bilaterally and external ears normal Face/Nose/Sinus: Normal external nose present Eyes: General: appearance normal, both eyes and all related structures Periorbital: periorbital findings normal Sclera: sclerae normal Pupils: Equal, round and reactive pupils present Neck: Neck: normal visual inspection Chest: Chest palpation & inspection: normal inspection of the chest Resp: Effort & Inspection: normal respiratory effort, able to speak in complete sentences and no respiratory distress Auscultation: clear to auscultation bilaterally Cardio: Jugular venous distension: no JVD Rate: regular rate Rhythm: regular rhythm GI: Inspection: normal to inspection GI Palp: Yes Soft to palpation Auscultation: normal bowel sounds Skin: General skin exam: normal color and no rashes or lesions noted Neuro: General: oriented to person, oriented to place and oriented to time Cranial nerves: Yes Equal, round and reactive pupils present Extrem: General: normal to inspection Course Course Emergency Course: Ordered labs, fluids, dicyclomine and zofran. Leukocytosis and UA c/w UTI, ordered ceftriaxone. Chemistries showed mild hyponatremia but were otherwise unremarkable Vital Signs Vital signs: Vital Signs Temperature 97.8 F 12/23/24 00:13 Pulse Rate 92 12/23/24 00:13 Respiratory Rate 18 12/23/24 00:13 Blood Pressure 148/68 H 12/23/24 00:13 Pulse Oximetry 96 12/23/24 00:13 Oxygen Delivery Room Air 12/23/24 00:13 Temperature 97.8 F 12/23/24 00:13 Pulse Rate 92 12/23/24 00:13 Respiratory Rate 18 12/23/24 00:13 Blood Pressure 148/68 H 12/23/24 00:13 Pulse Oximetry 96 12/23/24 00:13 Oxygen Delivery Room Air 12/23/24 00:13 Medical Decision Making Vital Signs Vital Signs: Vital Signs Temperature 97.8 F 12/23/24 00:13 Pulse Rate 92 12/23/24 00:13 Respiratory Rate 18 12/23/24 00:13 Blood Pressure 148/68 H 12/23/24 00:13 Pulse Oximetry 96 12/23/24 00:13 Oxygen Delivery Room Air 12/23/24 00:13 Temperature 97.8 F 12/23/24 00:13 Pulse Rate 92 12/23/24 00:13 Respiratory Rate 18 12/23/24 00:13 Blood Pressure 148/68 H 12/23/24 00:13 Pulse Oximetry 96 12/23/24 00:13 Oxygen Delivery Room Air 12/23/24 00:13 Lab Data 12/23/24 00:30 12/23/24 00:30 Labs: Lab Results 12/23/24 12/23/24 Range/Units 00:30 00:35 WBC 16.4 H (4.8-10.8) K/mm3 RBC 4.70 (4.20-5.40) M/mm3 Hgb 12.2 (12.0-15.0) g/dL Hct 39.4 (35.0-49.0) % MCV 83.8 (78.0-102.0) fL MCH 26.0 L (27.0-31.0) pg MCHC 31.0 L (32-36) g/dL RDW 18.0 H (11.6-14.4) % Plt Count 440 H (150-420) K/mm3 MPV 10.2 (9.2-11.8) fl Immature Gran % (Auto) 0.5 H (0.0-0.0) % Neut % (Auto) 59.9 (50.0-70.0) % Lymph % (Auto) 29.7 (18.0-42.0) % [place] % (Auto) 8.0 (2.0-11.0) % Eos % (Auto) 1.0 (1.0-6.0) % Baso % (Auto) 0.9 (0.0-1.0) % Lymph # (Auto) 4.87 H (1.10-4.50) K/mm3 [place] # (Auto) 1.32 H (0.10-0.90) K/mm3 Eos # (Auto) 0.16 (0.02-0.50) K/mm3 Baso # (Auto) 0.14 H (0.00-0.10) K/mm3 Abs Immat Gran (auto) 0.09 H (0.00-0.00) K/mm3 Absolute Neuts (auto) 9.83 H (1.70-7.20) K/mm3 Absolute Nucleated RBC 0.00 (0.00-0.00) K/mm3 Nucleated RBC % 0.0 (0-0.0) % PT 10.5 (9.50-12.1) Seconds INR 0.9 Sodium Pending Potassium Pending Chloride Pending Carbon Dioxide Pending Anion Gap Pending BUN Pending Creatinine Pending Estim Creat Clear Calc Pending Estimated GFR Pending Glucose Pending Calculated Osmolality Pending Lactic Acid Pending Calcium Pending Total Bilirubin Pending AST Pending ALT Pending Alkaline Phosphatase Pending Total Protein Pending Albumin Pending Lipase Pending Urine Color Light yellow (Yellow) Urine Appearance Clear (Clear) Urine pH 6.0 (5.0-8.0) Ur Specific [place] 1.020 (1.010-1.020) Urine Protein Trace H (Negative) Urine Glucose (UA) Negative (Negative) Urine Ketones Negative (Negative) Ur Blood (Man) Negative (Negative) Urine Nitrate Negative (Negative) Urine Bilirubin Negative (Negative) Urine Urobilinogen 0.2 (0.2-1.0) mg/dL Leukocyte Esterase Rfl 3+ H (Negative) JINA/UL Urine RBC 0-2 (0-2) /hpf Urine WBC 7-9 H (0-3) /hpf Ur Squamous Epith Cells Rare (Few) /hpf Urine Bacteria 1+ H (None) /hpf Influenza A (RT-PCR) Pending Influenza B (RT-PCR) Pending RSV (RT-PCR) Pending SARS-CoV-2 RNA (RT-PCR) Pending Discharge Plan Discharge Clinical Impression: UTI (urinary tract infection), Gastroenteritis Patient Disposition: Home Condition: Stable Instructions: Antibiotic Form Patient Language: [place] Prescriptions: New cephalexin 500 mg capsule 500 mg PO Q8H Qty: 15 0RF ondansetron 4 mg tablet,disintegrating 4 mg PO Q8H Qty: 20 0RF No Action cyclobenzaprine 10 mg tablet 10 mg PO TID PRN (Reason: Muscle Spasm) lisinopril 30 mg tablet 30 mg PO DAILY furosemide 20 mg tablet 20 mg PO DAILY albuterol sulfate 90 mcg/actuation HFA aerosol inhaler 2 puff INHALATION Q4-5H PRN (Reason: Shortness Of Breath) rosuvastatin 20 mg tablet 20 mg PO HS insulin aspart U-100 [Novolog U-100 Insulin aspart] 100 unit/mL Solution 1 sliding scale dose SUBCUT USEASDIRECTD Patient Comments: Patient states it was off for a possible back surgery Rx Instructions: pt has insulin pump pre set. 5972-2379 2.20 units/hr 6804-0070 1.90 units/hr ICR:7 ISF:25 TARGET:100-110 melatonin 10 mg Tablet 10 mg PO HS amlodipine 10 mg tablet 10 mg PO DAILY fluticasone propion-salmeterol [Wixela Inhub] 500-50 mcg/dose blister with device 1 inh INHALATION Q12H aspirin [Aspirin Childrens] 81 mg tablet,chewable 81 mg PO DAILY calcium carbonate [Calcium 500] 500 mg calcium (1,250 mg) tablet,chewable 500 mg PO DAILY metoprolol succinate 50 mg tablet extended release 24 hr 50 mg PO DAILY pantoprazole 40 mg Tablet,Delayed Release (Dr/Ec) 40 mg PO Q12HR Qty: 60 0RF ondansetron 4 mg tablet,disintegrating 4 mg PO Q8H PRN (Reason: nausea and vomiting) Qty: 30 0RF gabapentin 100 mg capsule 100 mg PO TID olanzapine 5 mg tablet 5 mg PO HS buspirone 15 mg tablet 15 mg PO BID fluoxetine 20 mg capsule 20 mg PO DAILY fluoxetine [Prozac] 40 mg capsule 40 mg PO HS oxycodone-acetaminophen 5-325 mg tablet 1 tablet PO Q12H PRN (Reason: pain) magnesium oxide 400 mg (241.3 mg magnesium) Tablet 400 mg PO BID Qty: 60 0RF insulin glargine [Lantus Solostar U-100 Insulin] 100 unit/mL (3 mL) insulin pen 28 unit subcut QPM Qty: 15 0RF Follow-up/Referrals: UNKNOWN,DOCTOR [Primary Care Provider] -
--- NOTE | 2024-12-23 00:41 | PC.NURSE ---
DR ADAME AT THE BEDSIDE
[2024-12-23 00:44] LABS: Hematocrit 39.4 % (35.0-49.0); Hemoglobin 12.2 g/dL (12.0-15.0); Immature Granulocyte Percent A 0.5 % (0.0-0.0); Lymphocytes Absolute Auto 4.87 K/mm3 (1.10-4.50); Mean Corpuscular HGB Conc 31.0 g/dL (32-36); Mean Corpuscular Hemoglobin 26.0 pg (27.0-31.0); Mean Corpuscular Volume 83.8 fL (78.0-102.0); Nucleated Red Blood Cells Absolute Auto 0.00 K/mm3 (0.00-0.00); Nucleated Red Blood Cells Perc 0.0 % (0-0.0); Platelet Count Result 440 K/mm3 (150-420); Red Blood Count 4.70 M/mm3 (4.20-5.40); White Blood Count 16.4 K/mm3 (4.8-10.8)
[2024-12-23 00:47] LABS: Add Urine Microscopic? YES; Appearance Urine Clear (Clear); Glucose Urine UA Negative (Negative); Leukocyte Esterase Ur 3+ LEU/UL (Negative); Nitrate Urine Negative (Negative); Specific Grav Ur 1.020 (1.010-1.020)
[2024-12-23] MEDS: SODIUM CHLORIDE 0.9% IV 1,000 ML 999 ML IV CONT (00:49)
[2024-12-23] MEDS: DICYCLOMINE HCL 10 MG CAPSULE 20 MG PO (00:49)
[2024-12-23] MEDS: ONDANSETRON INJ 4 MG/2 ML VIAL IV PUSH (00:49)
[2024-12-23 00:51] LABS: INR 0.9; Prothrombin Time 10.5 Seconds (9.50-12.1)
[2024-12-23] MEDS: cefTRIAXone 1 GM in SODIUM CHLORIDE 0.9% IV 50 ML 100 ML IVPB (01:10)
[2024-12-23 01:12] LABS: Alanine Aminotransferase 17 U/L (6-35); Albumin Level 4.0 g/dL (3.5-5.1); Alkaline Phosphatase 145 U/L (38-126); Anion Gap 7 mmol/L (4-12); Aspartate Amino Transferase 21 U/L (14-36); Bilirubin,Total 0.5 mg/dL (0.2-1.3); Blood Urea Nitrogen 23 mg/dL (7-17); Calcium 8.7 mg/dL (8.4-10.2); Carbon Dioxide 23 mmol/L (22-30); Chloride 106 mmol/L (98-107); Estimated CRCL calculation 47 ml/min; Estimated Glomerular Filt Rate 53; Glucose 141 mg/dL (65-110); Lipase 127 U/L (23-300); Osmolality Calculated 287 mOsm/kg (285-295); Potassium 4.4 mmol/L (3.4-5.0); Sodium 136 mmol/L (137-145); Total Protein 7.1 g/dL (6.3-8.2)
--- NOTE | 2024-12-23 01:25 | PC.NURSE ---
DR ADAME AT THE BEDSIDE.
[2024-12-23 01:32] LABS: Influenza A QL RT-PCR Negative (Negative); Influenza B QL RT-PCR Negative (Negative); RSV RNA, RT-PCR Negative (Negative); SARS-CoV-2 RNA PCR Negative (Negative)
[2024-12-23 01:57] VITALS: BP 122/70; PULSE 80; RESP 18; O2SAT 100
--- NOTE | 2024-12-25 12:26 | PC.NURSE ---
urine culture, mixed sherri only, final
== END 2024-12-23 01:57 | disposition home or self-care (01) ==
PROVIDERS: Emergency Provider Family Medicine
DX: N39.0 Urinary tract infection, site not specified (principal); K52.9 Noninfective gastroenteritis and colitis, unspecified; I10 Essential (primary) hypertension; E78.5 Hyperlipidemia, unspecified; E11.9 Type 2 diabetes mellitus without complications; K21.9 Gastro-esophageal reflux disease without esophagitis; F32.A Depression, unspecified; Z79.4 Long term (current) use of insulin; Z79.82 Long term (current) use of aspirin; Z79.51 Long term (current) use of inhaled steroids; Z87.891 Personal history of nicotine dependence; F12.90 Cannabis use, unspecified, uncomplicated; Z20.822 Contact with and (suspected) exposure to COVID-19
CPT/HCPCS: 36415; 80053; 81001; 82948; 83605; 83690; 85025; 85610; 87086; 87637; 96365; 96375; 99284; A9270; J0696; J2405; J7030

== ENCOUNTER 2024-12-26 13:15 | Emergency (ER) | payer BC, SELFPAY ==
[2024-12-26] VITALS (39 sets, daily range): BP systolic 120–149; BP diastolic 56–86; PULSE 97–128; RESP 10–20; TEMP 36.6–36.8; O2SAT 91–99
--- NOTE | ~2024-12-26 | CT_ITS ---
EXAMINATION: CT abdomen pelvis w con DATE: 12/26/2024 14:57 INDICATION: Lower abdominal pain, elevated lipase, N/V/D x1 week TECHNIQUE: Computed tomography (CT) of the abdomen and pelvis was performed with 100 mL Omnipaque-350 intravenous contrast. Automated exposure control and iterative reconstruction technique were employe d. The dose-length product was 546.58 mGy-cm. COMPARISON: 10/18/2024, 02/16/2022. FINDINGS: Lower thorax: Unremarkable Liver: Normal. Biliary/Gallbladder: Gallbladder is absent. Intra and extrahepatic bile duct dilation, slightly incre ased since the prior exam, common bile duct measures 14 mm in the pancreatic head, previously 12 mm. Pancreas: Mild atrophy. Spleen: Normal. Adrenals: Stable 11 mm indeterminate density left adrenal lesion, likely adenoma, no follow-up recomm ended. Kidneys: No suspicious mass, obstructing stone, or hydronephrosis. GI tract: Mild distal esophageal and gastric wall edema. No small or large bowel dilation. Appendix n ot visualized. Mesentery/Peritoneum: No ascites, mass, or free air. Retroperitoneum: No mass. Pelvis: Pelvic organs are within normal limits. Soft Tissues: Small uncomplicated appearing fat-containing umbilical hernia. Chronic fatty atrophy in the mid right rectus abdominis muscle. Bones: No acute osseous finding. IMPRESSION: Mild esophagitis/gastritis. Chronic slightly worsening intra and extra hepatic bile duct dilation. No visualized obstructing ston e or mass. Correlate with biliary labs. Consider MRCP. No CT evidence of acute pancreatitis. Reviewed, dictated and finalized at location K. IMPRESSION: Mild esophagitis/gastritis. Chronic slightly worsening intra and extra hepatic bile duct dilation. No visua lized obstructing stone or mass. Correlate with biliary labs. Consider MRCP. No CT evidence of acute pancreatitis.
--- OUTSIDE RECORDS SUMMARY | 2024-12-26 13:18 | XMS_ITS | Encounter Summary ---
Author Organization [facility] Address [address] [place] [address] Care Team Providers Care Electro Mechanical Engineer Name Role Phone Jed Gale MD Primary Care Provider [phone] Alethea Roberto Primary Care Provider Alethea Roberto Unavailable [phone] Alethea Roberto Primary Care Provider Yvette Cunningham MD Primary Care Provider [phone] Encounter Details Date Type Department Care Team (Late st Contact Info) Description 11/08/2018 Abstract SFL CONVERSION [address] [place] [address] , Generic Conversion, Social History Tobacco Use Types Packs/Day Years Used Date Smoking Tobacco: Never Assessed Comments Unknown Sex and Gender Information Value Date Recorded Sex Assigned at Female 06/16/2024 3:02 PM FREIGHT FLOW SALES LEADER Legal Sex Female 10:13 AM CDT Gender Identity Not on file Sexual Orientation Not on file documented as of this encounter Plan of Treatment Not on file documented as of this encounter Visit Diagnoses Not on filedocumented in this encounter Additional Health Concerns Infection Onset Date Last Indicated Resolved Time COVID-19 Rule Out 05/06/2020 05/06/2020 05/06/2020 2:48 PM FREIGHT FLOW SALES LEADER COVID-19 Rule Out 10/29/2020 10/29/2020 10/29/2020 7:37 PM CDT COVID-19 Rule Out 02/28/2022 02/28/2022 02/28/2022 10:20 AM CDT COVID-19 Rule Out 04/10/2024 04/10/2024 04/10/2024 12:09 PM FREIGHT FLOW SALES LEADER COVID-19 Rule Out 10/02/2024 10/02/2024 10/02/2024 1:17 PM CDT documented as of this encounter Care Teams Electro Mechanical Engineer Relationship Specialty Start Date End Date Jed Gale MD [address] [place] [address] PCP - General FAMILY PRACTICE 03/02/19 05/05/20 [place] [address] PCP - General NURSE PRACTITIONER 05/06/20 03/08/21 [place] [address] PCP - General NURSE PRACTITIONER 02/18/23 07/07/24 Yvette Cunningham MD [address] [place] [address] PCP - General FAMILY PRACTICE 07/08/24 Alethea Roberto AP[place] [address] [place] [address] Nurse Practitioner NURSE PRACTITIONER 03/09/21 documented as of this encounter
--- OUTSIDE RECORDS SUMMARY | 2024-12-26 13:19 | XMS_ITS | Encounter Summary ---
Author Organization [facility] Address [address] [place] [address] Care Team Providers Care Truant Officer Name Role Phone Alethea Roberto Unavailable [phone] Alethea Roberto Primary Care Provider Yvette Cunningham MD Primary Care Provider [phone] Encounter Details Date Type Department Care Team (Late st Contact Info) Description 02/19/[address] [facility] [address], [address] [place] [address] Ericka Acosta, [facility] [address] [place] [address] [place] [address] Visit Follow Up Social History Tobacco Use [...] Sex Assigned at Female 06/16/2024 3:02 PM COLLISION MECHANIC Legal Sex Female 10:13 AM CDT Gender [...] AM PABLOT Kylie Nuñez RN Active * [place] Suicide Severity Rating Scale (Screener/Recent Self-Report) Question [...] Rule Out 04/10/2024 04/10/2024 04/10/2024 12:09 PM COLLISION MECHANIC COVID-19 Rule Out 10/02/2024 10/02/2024 10/02/2024 1:17 PM CDT documented as of this encounter Care Teams Truant Officer Relationship Specialty Start Date End Date [place] [address] PCP - General NURSE PRACTITIONER 02/18/23 07/07/24 Yvette Cunningham MD [address] [place] [id number] PCP - General FAMILY PRACTICE 07/08/24 Alethea Roberto [place] [address] [place] [address] Nurse Practitioner NURSE PRACTITIONER 03/09/21 documented as of this encounter
--- OUTSIDE RECORDS SUMMARY | 2024-12-26 13:19 | XMS_ITS | Clinical Summary ---
Author Organization [facility] Address [address] [place] [address] Care Team Providers Care Boom Conveyor Operator Name Role Phone Pardeep Alethea ERNESTO Primary Care Provider [phone] Allergies Active Allergy Reactions Criticality Noted Date [...] 05/11/2021 Assessment & Plan (05/01/2023 9:38 AM HOUSEKEEPER AND LAUNDRY ASSISTANT): This is a chronic condition which is [...] recent stroke. 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 No changes made to insulin pump. Assessment & Plan (06/28/2021 2:03 PM HOUSEKEEPER AND LAUNDRY ASSISTANT): This is a chronic condition which is [...] pump. Assessment & Plan (05/11/2021 1:59 PM HOUSEKEEPER AND LAUNDRY ASSISTANT): This is a chronic condition which is stable, controlled, uncontrolled with hyperglycemia, improving, but not at goal. Download reviewed. Type of insulin pump- Solar Censuss 630G Pump settings : Basal 2units IC [...] 02/18/2017 Assessment & Plan (05/01/2023 9:38 AM HOUSEKEEPER AND LAUNDRY ASSISTANT): This is a chronic condition which is [...] prescribed. Assessment & Plan (06/28/2021 2:03 PM HOUSEKEEPER AND LAUNDRY ASSISTANT): This is a chronic condition which is at goal. Goal is less than 70. Personally reviewed lipid panel. [id number] on crestor. Encouraged to eat healthy, include fresh fruits and vegetables daily and avoid eating fried foods more than once per week. Encouraged to take medications as prescribed. Assessment & Plan (05/11/2021 1:12 PM HOUSEKEEPER AND LAUNDRY ASSISTANT): This is a chronic condition which is [...] 02/18/2017 Assessment & Plan (05/01/2023 9:35 AM HOUSEKEEPER AND LAUNDRY ASSISTANT): This is a chronic condition which is [...] eye exam. last dilated eye exam was [facility] in [place] Monofilament foot exam completed. protective senses intact [...] worsening and not at goal. Personally reviewed A5d-[id number] to 9% not at goal less than [...] which is not at goal. Personally reviewed X8m-jpypogsve to 9% not at goal less than [...] CVA Assessment & Plan (06/28/2021 2:00 PM HOUSEKEEPER AND LAUNDRY ASSISTANT): This is a chronic condition which is [...] CVA Assessment & Plan (05/11/2021 1:09 PM HOUSEKEEPER AND LAUNDRY ASSISTANT): This is a chronic condition which is [...] scheduled Assessment & Plan (06/28/2021 2:04 PM HOUSEKEEPER AND LAUNDRY ASSISTANT): Improving. Continue to see therapy as scheduled Assessment & Plan (05/11/2021 1:10 PM HOUSEKEEPER AND LAUNDRY ASSISTANT): This is a chronic condition. Seeing speech therapy. Give extra time to allow her to get her words out Hypertension 02/18/2017 05/11/2021 Assessment & Plan (05/11/2021 1:11 PM HOUSEKEEPER AND LAUNDRY ASSISTANT): This is a chronic condition which is at goal Goal is <140/90 Personally reviewed labs. B/p - 128/66. Stable on lisinopril. Avoid caffeine, caffeine will raise blood pressure and excessive alcohol consumption. Monitor your weight and B/P. Encouraged to take medications as prescribed. Encounters Date Type Department Care Team Description 12/22/2024 7:50 AM CDT Office Visit [facility] Orthopaedic Surgery [address] [place] [address] [place] [address] Walter Patel MD Low back pain, unspecified back pain laterality, unspecified chronicity, unspecified whether sciatica present (Primary Dx); Spinal stenosis, unspecified spinal region; Low back pain with left-sided sciatica, unspecified back pain laterality, unspecified chronicity 12/22/2024 7:15 AM CDT - 12/22/2024 11:59 PM CDT Hospital Encounter [facility] [address] [place] [address] Low back pain, unspecified back pain laterality, unspecified chronicity, unspecified whether sciatica present Discharge Disposition: Discharge to home or self care 12/22/2024 Orders Only [facility] Orthopaedic Surgery [address] [facility] [facility] [address] [place] [address] [place] [address] Walter Patel MD Low back pain with left-sided sciatica, unspecified back pain laterality, unspecified chronicity (Primary Dx); Spinal stenosis, unspecified spinal region; Cyst of lumbar facet joint 12/09/2024 10:21 AM CDT - 12/09/2024 11:59 PM CDT Hospital Encounter [facility] ([facility]) [address] [place] [address] Discharge Disposition: Discharge to home or self care 12/09/2024 10:21 AM CDT - 12/09/2024 11:59 PM CDT Hospital Encounter [facility] ([facility]) [address] [place] [address] Discharge Disposition: Discharge to home or self care 12/09/2024 10:20 AM CDT - 12/09/2024 11:59 PM CDT Hospital Encounter [facility] ([facility]) [address] [place] [address] Discharge Disposition: Discharge to home or self care 12/09/2024 10:19 AM CDT - 12/09/2024 11:59 PM CDT Hospital Encounter [facility] ([facility]) [address] [place] [address] Discharge Disposition: Discharge to home or self care 12/09/2024 10:19 AM CDT - 12/09/2024 11:59 PM CDT Hospital Encounter [facility] ([facility]) [address] [place] [address] Discharge Disposition: Discharge to home or self care 12/09/2024 Telephone [facility] Orthopaedic Surgery [address] [place] [phone] Goodwin Appointment Questions from Last 3 Months Surgical History Surgery Date Site/Laterality Comments APPENDECTOMY Appendectomy - (Added by Conv) CHOLECYSTECTOMY Cholecystectomy - 1985 (Added by TW Conv) SECTION Section - 1990 (Added by Conv) Medical History Medical History Date Comments [...] on file Legal Sex Female 4:58 PM HOUSEKEEPER AND LAUNDRY ASSISTANT Gender Identity Not on file Sexual Orientation Not on file Obstetrics History Last Filed Vital Signs Vital Sign Reading Time Taken Comments Blood Pressure 134/74 05/01/2023 8:59 AM HOUSEKEEPER AND LAUNDRY ASSISTANT Pulse 68 12/07/2017 5:30 PM CDT Temperature [...] HEMOGLOBIN A1C Routine 05/01/2023 9 :11 AM HOUSEKEEPER AND LAUNDRY ASSISTANT Type 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, with long-term current use of insulin ([facility]) DIABETIC EYE EXAM Routine 03/26/2023 COMPREHENSIVE METABOLIC [...] Electronically signed by: Carmelo Neil MD Walter HERRERA XR PROCEDURES Fi nal Result * XR Outside Reference (12/09/2024 10:21 AM CDT) Impressions [facility] - 12/09/2024 10:21 AM CDT These images are for Reference purposes only and have not been reviewed by [facility] Radiology. There will be no report generated by a [facility] Radiologist. Narrative [facility] - 12/09/2024 10:21 AM CDT EXAMINATION: Images For Reference Purposes Only Walter HERRERA XR PROCEDURES Fi nal Result [facility] * Neuro CT Outside Reference (12/09/2024 10:21 AM CDT) Impressions [facility] - 12/09/2024 10:21 AM CDT These images are for Reference purposes only and have not been reviewed by [facility] Radiology. There will be no report generated by a [facility] Radiologist. Narrative [facility] - 12/09/2024 10:21 AM CDT EXAMINATION: Images For Reference Purposes Only Walter Patel MD IMG CT PROCEDURES Fi nal Result Performing Organization Address [facility] de Phone Number [facility] * Neuro MR Outside Reference (12/09/2024 10:20 AM CDT) Impressions [facility] - 12/09/2024 10:20 AM CDT These images are for Reference purposes only and have not been reviewed by [facility] Radiology. There will be no report generated by a [facility] Radiologist. Narrative [facility] - 12/09/2024 10:20 AM CDT EXAMINATION: Images For Reference Purposes Only Walter Patel MD IMG MRI PROCEDURES F inal Result Performing Organization Address [facility] de Phone Number [facility] * Neuro MR Outside Reference (12/09/2024 10:19 AM CDT) Impressions [facility] - 12/09/2024 10:19 AM CDT These images are for Reference purposes only and have not been reviewed by [facility] Radiology. There will be no report generated by a [facility] Radiologist. Narrative [facility] - 12/09/2024 10:19 AM CDT EXAMINATION: Images For Reference Purposes Only Walter Patel MD IMG MRI PROCEDURES F inal Result Performing Organization Address [facility] de Phone Number [facility] * Neuro MR Outside Reference (12/09/2024 10:19 AM CDT) Impressions [facility] - 12/09/2024 10:19 AM CDT These images are for Reference purposes only and have not been reviewed by [facility] Radiology. There will be no report generated by a [facility] Radiologist. Narrative [facility] - 12/09/2024 10:19 AM CDT EXAMINATION: Images For Reference Purposes Only Walter Patel MD IMG MRI PROCEDURES F inal Result Performing Organization Address City/[facility]/ZIP Co de Phone Number [facility] * POCT hemoglobin A1c (05/01/2023 9:11 AM HOUSEKEEPER AND LAUNDRY ASSISTANT) Hemoglobin A1C, POC 6.5 % Blood 05/01/2023 9:11 AM HOUSEKEEPER AND LAUNDRY ASSISTANT Harleen Butler NP POINT OF CARE TEST [...] - - [facility] SCRIBED eGFR in NonAfrican Greenlandic 51 - - - [facility] Blood 12/19/2022 Historical Provider LAB BLOOD ORDERABLES Gauri l Result [facility] from Last 3 Months or Most Recently Relevant to Health Maintenance Insurance [facility] [place] [facility] [place] Care Teams Boom Conveyor Operator Relationship Specialty Start Date End Date Alethea Roberto NP [address] [place] [address] PCP - General Family Medicine 05/01/23
--- OUTSIDE RECORDS SUMMARY | 2024-12-26 13:19 | XMS_ITS | Clinical Summary ---
Author Organization [email or web address] Address [address] [place] [address] Care Team Providers Care Adjunct History Instructor Name Role Phone Yvette Cunningham MD Primary Care Provider [phone] Source Comments [email or web address],non-owned Affiliates and Associated Physician Practices is amultiple site organization consisting of ambulatory clinics and hospital sitesin [place], [place], [place] and [place]. This disclosure is being madepursuant to the Care Everywhere program and may not contain all information available regarding this patient. Last updated 18.[email or web address] Allergies Active Allergy Reactions Criticality Noted Date [...] daily Active Calcium Carbonate-Vit D-Min (CALCIUM 1200) 4984-0002 MG-UNIT CHEW Take 1 tablet by mouth [...] [facility] - [facility] [address] [id number] Unique Valdivia RN Loop Recorder 11/11/2024 10:00 AM CDT Office Visit [facility] - Neurology [address] [facility] [place] [phone] Eleni Gtz PA-C Cerebrovascular accident (CVA), unspecified mechanism (HCC) (Primary Dx); Primary hypertension; Type 2 diabetes, controlled, with neuropathy (HCC); Moderate episode of recurrent major depressive disorder (HCC); Hallucinations; Cognitive dysfunction 11/11/2024 Travel 10/28/2024 Telephone [facility] - Cardiology [id number] [place] [phone] Provider, No Pcp Question; Loop Recorder from [...] on file Legal Sex Female 8:31 AM SENIOR ENTERPRISE ARCHITECT Gender Identity Not on file Sexual Orientation Not on file Last Filed Vital Signs Vital Sign Reading Time Taken Comments Blood Pressure 116/74 11/11/2024 9:37 AM CDT Pulse 96 11/11/2024 9:37 AM CDT Temperature 36.6 C (97.8 F) 04/18/2021 12:58 PM SENIOR ENTERPRISE ARCHITECT Respiratory Rate 14 11/11/2024 9:37 AM CDT Oxygen Saturation 95% 04/18/2021 3:02 PM SENIOR ENTERPRISE ARCHITECT Inhaled Oxygen Concentration - - Weight 77.6 kg (171 lb) 11/11/2024 9:37 AM CDT Height 154.9 cm (5' 1) 11/22/2021 9:51 AM CDT Body Mass Index 32.31 11/22/2021 9:51 AM CDT Plan of Treatment Upcoming Encounters Date Type Department Care Team (Late st Contact Info) Description 12/31/2024 1:00 AM CDT Clinical Support [facility] [address] [facility], [address] [address] 02/04/2025 1:00 AM CDT Clinical Support [facility] [address] [place] [address], [address] [address] Health Maintenance Due Date Last Done Comments [...] this topic Medical Devices Implanted Type Area Seed Yeast Operator Device Identifier Shelf Expiration Date Model / Serial / Lot Sys Crd Mntr Rvl Linq [employer] Ins - [id number] Implanted:Qty : 1 on 04/18/2021 by Maico De La Cruz MD at [facility] Loop Recorder Left: Chest Wall [employer] 01/14/2022 LINQSYS DISCONTINUED / [id number] / Procedures Procedure Name Priority Date/Time Associated Diagnosis Comments BASIC METABOLIC PANEL (CALCIUM TOTAL) Routine 04/18/2021 3:51 AM SENIOR ENTERPRISE ARCHITECT HEMOGLOBIN A1C Add on 04/16/2021 9:35 AM SENIOR ENTERPRISE ARCHITECT from Last 3 Months or Most Recently Relevant to Health Maintenance Results * (ABNORMAL) BASIC METABOLIC PANEL (CALCIUM TOTAL) (04/18/2021 3:51 AM SENIOR ENTERPRISE ARCHITECT) BUN 7 7 - 26 mg/dL 04/18/2021 5:15 AM [facility] Creatinine 0.80 0.56 - 0.96 mg/dL 04/18/2021 5:15 AM [facility] Sodium 141 136 - 145 mmol/L 04/18/2021 5:15 AM [facility] Potassium 3.2(L) 3.5 - 4.5 mmol/L 04/18/2021 5:15 AM [facility] Chloride 105 98 - 107 mmol/L 04/18/2021 5:15 AM [facility] CO2 21(L) 22 - 29 mmol/L 04/18/2021 5:15 AM [facility] Glucose 185(H) 70 - 115 mg/dL 04/18/2021 5:15 AM [facility] Calcium 9.7 8.4 - 10.2 mg/dL 04/18/2021 5:15 AM [facility] Anion Gap 18 8 - 18 04/18/2021 5:15 AM [facility] BUN/Creatinine Ratio 9 7 - 23 04/18/2021 5:15 AM [facility] Osmolality Calculated 295 270 - 300 mOsm/kg 04/18/2021 5:15 AM [facility] eGFR by CKD-EPI 81(L) >=90 mL/min/1.7 3 m2 04/18/2021 5:15 AM [facility] Blood BLOOD SPECIMEN / Unknown Lab Venipuncture / Unknown 04/18/2021 3:51 AM SENIOR ENTERPRISE ARCHITECT 04/18/2021 4:52 AM [facility] us Aaron Hauser MD LAB - CHEMISTRY ORDERABLES Final Result [facility] [address] [place] [address], [facility] [phone] * (ABNORMAL) HEMOGLOBIN A1C (04/16/2021 9:35 AM [facility]) Hemoglobin A1c 7.9(H) 4.4 - 6.3 % 04/16/2021 11:10 AM [facility] Estimated Average Glucose 180 mg/dL 04/16/2021 11:10 AM [facility] Comment: HbA1c Interpretation: Treatment target values recommended by ADA and other clinical organizations should be used to evaluate metabolic control in patients. Treatment Target Values: Normal : < 5.7% Pre-diabetes: 5.7-6.4% Diabetes: Equal to or greater than 6.5% Reference: [place] Diabetes Association Standards of Care in Diabetes -2014 In patients 70 years and older consider HbA1c target range of 7.0-7.5% Reference: Diabetes Mellitus in Older People: Position Statement on behalf of the International Association of Gerontology and Geriatrics (IAGG), the Diabetes Working Alliance Party for Older People (EDWPOP), and the International Task Force of Experts in Diabetes. Akash Saavedra et al. J [place] Medical Directors Association. 2012 Test results diagnostic of diabetes should be repeated for confirmation. The Sebia Capillary 2 assay for the measurement of HbA1c is a National Glycohemoglobin Standardization Program (NGSP)certified method. Blood BLOOD SPECIMEN / Unknown Venipuncture / Unknown 04/16/2021 9:35 AM SENIOR ENTERPRISE ARCHITECT 04/16/2021 9:40 AM SENIOR ENTERPRISE ARCHITECT us Aaron Hauser MD LAB - CHEMISTRY ORDERABLES Final Result [address] [address], [facility] [phone] from Last 3 Months or Most Recently Relevant to Health Maintenance Insurance [employer] Advance Directives * Full Code (Latest Code Status on File) Date Activated Date Inactivated Comments 04/16/2021 12:01 AM 04/18/2021 5:09 PM Care Teams Adjunct History Instructor Relationship Specialty Start Date End Date Yvette Cunningham MD [address] [place] [id number] PCP - General Family Medicine 11/11/24
--- OUTSIDE RECORDS SUMMARY | 2024-12-26 13:19 | XMS_ITS | Encounter Summary ---
Author Organization [facility] Address [address] [place] [address] Care Team Providers Care Service Technician Name Role Phone Alethea Roberto Unavailable [phone] Alethea Roberto Primary Care Provider Yvette Cunningham MD Primary Care Provider [phone] Encounter Details Date Type Department Care Team (Late st Contact Info) Description 11/29/2021 Xention Message [facility] Patient Accounts [address] [place] [address] [facility] Provider Payment Plan - past due [...] Sex Assigned at Female 06/16/2024 3:02 PM BINDER SORTER Legal Sex Female 10:13 AM CDT Gender [...] Rule Out 04/10/2024 04/10/2024 04/10/2024 12:09 PM BINDER SORTER COVID-19 Rule Out 10/02/2024 10/02/2024 10/02/2024 1:17 PM CDT documented as of this encounter Care Teams Service Technician Relationship Specialty Start Date End Date Alethea Roberto APNP [address] [place] [address] PCP - General NURSE PRACTITIONER 02/18/23 07/07/24 Yvette Cunningham MD [address] [place] [address] PCP - General FAMILY PRACTICE 07/08/24 Alethea Roberto APNP [address] [place] [address] Nurse Practitioner NURSE PRACTITIONER 03/09/21 documented as of this encounter
--- OUTSIDE RECORDS SUMMARY | 2024-12-26 13:19 | XMS_ITS | Referral Summary ---
Author Organization [facility] Address [address] [place] [address] Care Team Providers Care Payroll Accounting Manager Name Role Phone Alethea Roberto ERNESTO Primary Care Provider Encounters Date Type Department Care Team Description 12/22/2024 Orders Only [facility] [address] [place] [address] Advanced Medicine 6th [place] [address] [place] [address] Walter Patel MD Low back pain with left-sided sciatica, unspecified back pain laterality, unspecified chronicity (Primary Dx); Spinal stenosis, unspecified spinal region; Cyst of lumbar facet joint 12/22/2024 7:15 AM CDT - 12/22/2024 11:59 PM CDT Hospital Encounter [facility] ([facility] [address] [place] [id number] Low back pain, unspecified back pain laterality, unspecified chronicity, unspecified whether sciatica present Discharge Disposition: Discharge to home or self care 12/22/2024 7:50 AM CDT Office Visit [facility] [address] [place] [address] Advanced [facility] 6th [place] [address] [place] [address] Walter Patel MD Low back pain, unspecified back pain laterality, unspecified chronicity, unspecified whether sciatica present (Primary Dx); Spinal stenosis, unspecified spinal region; Low back pain with left-sided sciatica, unspecified back pain laterality, unspecified chronicity 12/09/2024 Telephone [facility] [address] [place] [phone] Goodwin Appointment Questions 12/09/2024 10:21 AM CDT - 12/09/2024 11:59 PM CDT Hospital Encounter [facility] ([facility]) [address] [place] [id number] Discharge Disposition: Discharge to home or self care 12/09/2024 10:21 AM CDT - 12/09/2024 11:59 PM CDT Hospital Encounter [facility] ([facility]) [address] [place] [phone] Discharge Disposition: Discharge to home or self care 12/09/2024 10:20 AM CDT - 12/09/2024 11:59 PM CDT Hospital Encounter [facility] ([facility]) [address] [place] [id number] Discharge Disposition: Discharge to home or self care 12/09/2024 10:19 AM CDT - 12/09/2024 11:59 PM CDT Hospital Encounter [facility] ([facility]) [address] [place] [phone] Discharge Disposition: Discharge to home or self care 12/09/2024 10:19 AM CDT - 12/09/2024 11:59 PM CDT Hospital Encounter [facility] ([facility]) [address] [place] [phone] Discharge Disposition: Discharge to home or self [...] 05/11/2021 Assessment & Plan (05/01/2023 9:38 AM ELECTRONIC COMMUNICATIONS TECHNICIAN): This is a chronic condition which is [...] a recent stroke. 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 No changes made to insulin pump. Assessment & Plan (06/28/2021 2:03 PM ELECTRONIC COMMUNICATIONS TECHNICIAN): This is a chronic condition which is [...] pump. Assessment & Plan (05/11/2021 1:59 PM ELECTRONIC COMMUNICATIONS TECHNICIAN): This is a chronic condition which is [...] 02/18/2017 Assessment & Plan (05/01/2023 9:38 AM ELECTRONIC COMMUNICATIONS TECHNICIAN): This is a chronic condition which is [...] prescribed. Assessment & Plan (06/28/2021 2:03 PM ELECTRONIC COMMUNICATIONS TECHNICIAN): This is a chronic condition which is at goal. Goal is less than 70. Personally reviewed lipid panel. [id number] on crestor. Encouraged to eat healthy, include fresh fruits and vegetables daily and avoid eating fried foods more than once per week. Encouraged to take medications as prescribed. Assessment & Plan (05/11/2021 1:12 PM ELECTRONIC COMMUNICATIONS TECHNICIAN): This is a chronic condition which is [...] 02/18/2017 Assessment & Plan (05/01/2023 9:35 AM ELECTRONIC COMMUNICATIONS TECHNICIAN): This is a chronic condition which is [...] eye exam. last dilated eye exam was [facility] in [place] Monofilament foot exam completed. protective senses intact [...] worsening and not at goal. Personally reviewed [id number] to 9% not at goal less than [...] which is not at goal. Personally reviewed [id number] to 9% not at goal less than [...] CVA Assessment & Plan (06/28/2021 2:00 PM ELECTRONIC COMMUNICATIONS TECHNICIAN): This is a chronic condition which is [...] CVA Assessment & Plan (05/11/2021 1:09 PM ELECTRONIC COMMUNICATIONS TECHNICIAN): This is a chronic condition which is [...] scheduled Assessment & Plan (06/28/2021 2:04 PM ELECTRONIC COMMUNICATIONS TECHNICIAN): Improving. Continue to see therapy as scheduled Assessment & Plan (05/11/2021 1:10 PM ELECTRONIC COMMUNICATIONS TECHNICIAN): This is a chronic condition. Seeing speech therapy. Give extra time to allow her to get her words out Hypertension 02/18/2017 05/11/2021 Assessment & Plan (05/11/2021 1:11 PM ELECTRONIC COMMUNICATIONS TECHNICIAN): This is a chronic condition which is [...] on file Legal Sex Female 4:58 PM ELECTRONIC COMMUNICATIONS TECHNICIAN Gender Identity Not on file Sexual Orientation Not on file Last Filed Vital Signs Vital Sign Reading Time Taken Comments Blood Pressure 134/74 05/01/2023 8:59 AM ELECTRONIC COMMUNICATIONS TECHNICIAN Pulse 68 12/07/2017 5:30 PM CDT Temperature [...] HEMOGLOBIN A1C Routine 05/01/2023 9 :11 AM ELECTRONIC COMMUNICATIONS TECHNICIAN Type 2 diabetes mellitus with stage 3a [...] MD IMG XR PROCEDURES Fi nal Result * XR Outside Reference (12/09/2024 10:21 AM CDT) Impressions [facility] - 12/09/2024 10:21 AM CDT These images are for Reference purposes only and have not been reviewed by [facility]. There will be no report generated by a [facility] Radiologist. Narrative [facility] - 12/09/2024 10:21 AM CDT EXAMINATION: Images For Reference Purposes Only Walter Patel MD IMG XR PROCEDURES Fi nal Result [facility] * Neuro CT Outside Reference (12/09/2024 10:21 AM CDT) Impressions [facility] - 12/09/2024 10:21 AM CDT These images are for Reference purposes only and have not been reviewed by [facility]. There will be no report generated by a [facility] Radiologist. Narrative [facility] - 12/09/2024 10:21 AM CDT EXAMINATION: Images For Reference Purposes Only Walter Patel MD IMG CT PROCEDURES Fi nal Result Performing Organization Address [facility] Co de Phone Number [facility] * Neuro MR Outside Reference (12/09/2024 10:20 AM CDT) Impressions [facility] - 12/09/2024 10:20 AM CDT These images are for Reference purposes only and have not been reviewed by [facility]. There will be no report generated by a [facility] Radiologist. Narrative [facility] - 12/09/2024 10:20 AM CDT EXAMINATION: Images For Reference Purposes Only Walter Patel MD IMG MRI PROCEDURES F inal Result Performing Organization Address [facility] de Phone Number [facility] * Neuro MR Outside Reference (12/09/2024 10:19 AM CDT) Impressions [facility] - 12/09/2024 10:19 AM CDT These images are for Reference purposes only and have not been reviewed by [facility]. There will be no report generated by a [facility] Radiologist. Narrative [facility] - 12/09/2024 10:19 AM CDT EXAMINATION: Images For Reference Purposes Only Walter Patel MD IMG MRI PROCEDURES F inal Result Performing Organization Address [facility] Co de Phone Number [facility] * Neuro MR Outside Reference (12/09/2024 10:19 AM CDT) Impressions [facility] - 12/09/2024 10:19 AM CDT These images are for Reference purposes only and have not been reviewed by [facility]. There will be no report generated by a [facility] Radiologist. Narrative [facility] - 12/09/2024 10:19 AM CDT EXAMINATION: Images For Reference Purposes Only Walter Patel MD IMG MRI PROCEDURES F inal Result Performing Organization Address [facility] Co de Phone Number [facility] * POCT hemoglobin A1c (05/01/2023 9:11 AM ELECTRONIC COMMUNICATIONS TECHNICIAN) Pathologist [facility] [place] Hemoglobin A1C, POC 6.5 % Blood 05/01/2023 9:11 AM ELECTRONIC COMMUNICATIONS TECHNICIAN Harleen Butler NP POINT OF CARE TEST ORDERABLES F inal Result * Diabetic Eye Exam (03/26/2023) 03/26/2023 Result [facility] Historical Provider HEALTH MAINTENANCE Final Result * Albumin Creatinine Ratio, Urine (12/19/2022) Pathologist [facility] [place] SCRIBED Creatinine, Urine 54.6 - - - [facility] SCRIBED Microalbumin 12.1 - - - [facility] SCRIBED Microalb/Creat Ratio 22 [facility] Urine 12/19/2022 Historical Provider LAB URINE ORDERABLES Gauri l Result Performing Organization Address [facility]/ZIP Co de Phone Number [facility] * [...] - - [facility] SCRIBED eGFR in NonAfrican Swiss 51 - - - [facility] Blood 12/19/2022 Historical Provider LAB BLOOD ORDERABLES Gauri l Result [facility] from Last 3 Months or Most Recently Relevant to Health Maintenance Insurance [facility] [employer] [place] [employer] [place] Care Teams Payroll Accounting Manager Relationship Specialty Start Date End Date [place] [address] PCP - General Family Medicine 05/01/23
--- OUTSIDE RECORDS SUMMARY | 2024-12-26 13:19 | XMS_ITS | Clinical Summary ---
Author Organization [facility] Address [address] [place] [address] Care Team Providers Care Computer Teacher Name Role Phone Alethea Roberto Amando DUFFY Unavailable [phone] Yvette Cunningham MD Primary Care Provider [phone] Allergies Active Allergy Reactions Criticality Noted Date [...] Major depression with psychotic features (CMS/ C [facility]) 11/03/2024 Failure to thrive in adult 11/02/2024 Spinal arachnoid cyst 08/07/2023 Cervical radiculopathy 01/25/2023 Lumbar radiculopathy 12/28/2022 HTN (hypertension) 08/30/2022 Mixed hyperlipidemia 02/18/2017 Type 2 diabetes mellitus wit h stage 3a chronic kidney disease, with long-term current use of insulin ([facility]) 02/18/2017 Resolved Problems Problem Noted Date Diagnosed Date Resolved Date Passive suicidal ideations 11/03/2024 0 11/05/2024 Left hip pain 09/22/2024 11/03/2024 Physical deconditioning 04/29/2024 06/0 08/2024 Acute hypoxic respiratory fa ilure ([facility]) 04/11/2024 11/03/2024 Back pain 08/17/2023 11/03/2024 HCAP (healthcare-associated pneumonia) 02/28/2022 11/03/2024 Pneumonia 02/28/2022 11/03/2024 Closed displaced fracture of shaft of fifth metacarpal bone of right hand, initial encounter 02/19/2022 11/03/2024 Acute ischemic stroke ([facility]) 04/14/2021 11/03/2024 Pain in right elbow 12/15/2020 11/04/19 25 Encounters Date Type Department Care Team Description 11/13/2024 12:00 PM CDT Home Care Visit [address] [place] [address] [place] [address] Zenaida Harper RN SN NON ADMIT SOC 11/12/2024 1:01 PM CDT - 11/12/2024 11:59 PM CDT Hospital Encounter [facility] [address] [place] [address] Yvette Cunningham MD Overberg, Rachel, PA Discharge Disposition: Home or Self Care (Routine Discharge) 11/12/2024 12:59 PM CDT - 11/12/2024 1:00 PM CDT Hospital Encounter [facility] [address] [place] [address] Yvette Cunningham MD Discharge Disposition: Home or Self Care (Routine Discharge) 11/12/2024 Orders Only [facility] [address] [place] [address] Eleni Gtz PA 11/12/2024 Travel 11/09/2024 11:30 AM CDT Home Care Visit [address] [place] [address] [place] [address] Zenaida Harper RN SN NON ADMIT SOC 11/02/2024 1:00 PM CDT - 11/05/2024 1:43 PM CDT Hospital Encounter [facility] [address] [place] [address] [place] [address] Beulah Parra MD Wheeler, Erin M, MD Fatigue; Altered Mental Status Discharge Disposition: Home or Self Care (Routine Discharge) 11/02/2024 Travel 10/08/2024 8:54 AM CDT - 10/08/2024 11:42 AM CDT Emergency [facility] [address] [place] [address] [place] [address] Mike Dunbar MD Back Pain Discharge Disposition: Home or Self Care (Routine Discharge) 10/08/2024 Travel 10/02/2024 11:52 AM CDT - 10/02/2024 4:00 PM CDT Emergency [facility] [address] [place] [address] [place] [address] Mike Dunbar MD Leg Pain Discharge Disposition: Home or Self Care (Routine Discharge) 10/02/2024 Travel 09/30/2024 9:11 AM CDT - 09/30/2024 11:59 PM CDT Hospital Encounter [facility] [address] [place] [address] Gilma Castle APNP Kovarik, Ryan A, CONSTRUCTION OR LEAK GANG LABORER Hip Pain Discharge Disposition: Home or Self Care (Routine Discharge) 09/30/2024 Travel 09/28/2024 9:37 AM CDT - 09/28/2024 11:59 PM CDT Hospital Encounter [facility] [address] [place] [address] Gilma Castle APNP Kovarik, Ryan A, CONSTRUCTION OR LEAK GANG LABORER Hip Pain Discharge Disposition: Home or Self [...] from your doctor or pharmacy? Never 04/11/2024 [facility] Utilities Answer Date Recorded In the past 12 months has th e [employer] gas, oil, or water [employer] threatened to shut off services in your [...] How often do you attend chur or scientology services? Patient declined 04/11/2024 Do you belong to any clubs o r organizations such as worship groups, unions, fraternal or athletic groups, or [...] and heating? Not hard at all 11/02/2024 [facility] - Occupational Stress [...] any time in the past 12 m [facility], were you homeless or living in a senior living (including now)? No 11/02/2024 Comments No Sex and Gender Information Value Date Recorded Sex Assigned at Female 06/16/2024 3:02 PM ENERGY ADMINISTRATOR Legal Sex Female 10:13 AM CDT Gender [...] Recommended Domains Addressed Status Status Reason/Outcome Date/Time [facility] Crisis Services, Mental Health Education, Mental Health Evaluation, Mental Health Services Depression Recommended 12/20/2024 1:02 PM CDT Clinic, [facility] Psychiatry Skilled Nursing Detoxification, Mental Health Hospital Treatment, Mental Health Residential Treatment, Safe Housing: Substance Use, Severe Mental Illness Fci, Short Term Detoxification, Sober Living Community, Substance Use Recovery Home Tobacco Use, Depression Recommended 12/20/2024 1:02 PM CDT [place] [place] Skilled Nursing Detoxification, Mental Health Hospital Treatment, Mental Health Residential Treatment, Safe Housing: Substance Use, Severe Mental Illness Fci, Short Term Detoxification, Sober Living Community, Substance Use Recovery Home Tobacco Use, Depression Recommended 12/20/2024 1:02 PM CDT [facility] Skilled Nursing Detoxification, Mental Health Hospital Treatment, Mental Health Residential Treatment, Safe Housing: Substance Use, Severe Mental Illness Fci, Short Term Detoxification, Sober Living Community, Substance Use Recovery Home Tobacco Use, Depression Recommended 12/20/2024 1:02 PM CDT [facility] Mental Health Hospital Treatment, Mental Health Residential Treatment, Mental Health Services, Substance Use Services Tobacco Use, Depression Recommended 12/20/2024 1:02 PM CDT [facility] Gyroscope Technician Detoxification, Mental Health Hospital Treatment, Mental Health Residential Treatment, Safe Housing: Substance Use, Severe Mental Illness Fci, Short Term Detoxification, Sober Living Community, Substance Use Recovery Home Tobacco Use, Depression Recommended 12/20/2024 1:02 PM CDT [facility] Treatment Depression Recommended 12/20/2024 1:02 PM CDT [facility] Hospital Treatment Depression Recommended 12/20/2024 1:02 PM CDT [facility] Crisis Services, Mental Health Education, Mental Health Evaluation, Mental Health Hospital Treatment, Mental Health Services Depression Recommended 12/20/2024 1:02 PM CDT from Last 12 Months Medical Devices Implanted Type Area Musical Instrument Maker Or Repairer Device Identifier Shelf Expiration Date Model / Serial / Lot Agent Hemostatic Surgiflo 8 Ml Kit - [id number] Implanted:Qty: 2 on 08/07/2023 by William Mello MD at [facility] Sealant N/A: Spine Thoracic [employer] 09/30/2024 [id number] / / [id number] Agent Hemostatic Surgiflo 8 Ml Kit - [id number] Implanted:Qty: 1 on 08/07/2023 by William Mello MD at [facility] Sealant N/A: Spine Thoracic [employer] 09/30/2024 2994 / / [id number] 1.7mm S Locking Plate T, Narrow 10 Holes Implanted:Qty: 1 on 02/21/2022 by Jamil Lyons MD at [facility] Right: Hand [employer] [id number] / / 1.7 X 11 Locking Screw Implanted:Qty: 2 on 02/21/2022 by Jamil Lyons MD at [facility] Right: Hand [employer] [id number] / / 1.7 X 9 Locking Screw Implanted:Qty: 1 on 02/21/2022 by Jamil Lyons MD at [facility] Right: Hand [employer] [id number] / / 1.7 X 7 Locking Screw Implanted:Qty: 2 on 02/21/2022 by Jamil Lyons MD at [facility] Right: Hand [employer] [id number] / / 1.7 X 6 Locking Screw Implanted:Qty: 1 on 02/21/2022 by Jamil Lyons MD at [facility] Right: Hand [employer] [id number] / / Variax 2 Non-Locking Screw 1.7mm X 7mm Implanted:Qty: 1 on 02/21/2022 by Jamil Lyons MD at [facility] Right: Hand [employer] [id number] / / [employer] 2 Non-Locking Screw 1.7mm X 8mm Implanted:Qty: 1 on 02/21/2022 by Jamil Lyons MD at [facility] Right: Hand [employer] [id number] / / Vistaseal Fibrin Sealant Implanted:Qty: 1 on 08/07/2023 by William Mello MD at [facility] N/A: Spine Thoracic [employer] [id number] 08/16/2023 [id number] / [id number] / [id number] Explanted Type Area Musical Instrument Maker Or Repairer Device Identifier Shelf Expiration Date Model / Serial / Lot 1.4 X 27mm, Ao Twist Drill Explanted:Qty: 1 on 02/21/2022 by Jamil Lyons MD at [facility] Right: Hand [employer] [id number] / / Procedures Procedure Name Priority Date/Time [...] CDT HEMOGLOBIN, GLYCOSYLATED Routine 04/11/2024 11:15 PM ENERGY ADMINISTRATOR HEPATITIS PANEL,ACUTE STAT 08/17/2023 6:53 PM CDT MG SCREENING W SREE JUAN DIGI Routine 03/22/2023 10:16 AM CDT Visit for screening mammogram from Last 3 Months or Most Recently Relevant to Health Maintenance Results * VITAMIN B-12 (11/12/2024 1:58 PM CDT) VITAMIN B12 S/P/B 545 193 - 986 PG/ML 11/12/2024 8:07 PM CDT [facility] 11/12/2024 1:58 PM CDT us Eleni [facility] Final Result Performing Organization Address City/State/[facility] Co de Phone Number [facility] [address] [place] [address], [phone] * CT LUNG SCREENING (11/12/2024 1:33 PM [...] 6:14 AM Narrative 11/18/2024 6:15 AM CDT [address] [place] [address] Examination: CT LUNG SCREENING Exam time: 11/12/2024 [...] Procedure Note Shade Kumar MD - 11/18/[address] [place] [address] Examination: CT LUNG SCREENING Exam time: 11/12/2024 [...] - 99 MG/DL 11/05/2024 1:44 PM CDT [facility] 11/05/2024 11:4 8 AM CDT Yvette Cunningham MD POCT ORDERABLES - DEVICE Final Result [facility] [address] [place] [address], * (ABNORMAL) COMPREHENSIVE METABOLIC PANEL (11/05/2024 5:41 AM CDT) Only the most recent of5 resultswithin the time period is included. SODIUM S/P/B 141 136 - 145 MMOL/L 11/05/2024 6:07 AM CDT [facility] POTASSIUM S/P/B 3.3(L) 3.5 - 5.1 MMOL/L 11/05/2024 6:07 AM CDT [facility] CHLORIDE S/P/B 103 98 - 107 MMOL/L 11/05/2024 6:07 AM CDT [facility] CO2 28.1 21.0 - 32.0 MMOL/L 11/05/2024 6:07 AM CDT [facility] GLUCOSE 230(H) 70 - 99 MG/DL 11/05/2024 6:07 AM CDT [facility] Comment: FASTING GLUCOSE 100 TO 125 MG/DL IS CONSISTENT WITH IMPAIRED FASTING GLUCOSE. FASTING GLUCOSE >125 MG/DL IS CONSISTENT WITH DIABETES. RANDOM GLUCOSE >200 MG/DL WITH HYPERGLYCEMIC SYMPTOMS IS CONSISTENT WITH DIABETES. PER ADA GUIDELINES BUN 11 6 - 24 MG/DL 11/05/2024 6:07 AM CDT [facility] CREATININE S/P/B 0.95 0.55 - 1.02 MG/DL 11/05/2024 6:07 AM CDT [facility] CALCIUM S/P/B 9.3 8.4 - 10.5 MG/DL 11/05/2024 6:07 AM CDT [facility] BILIRUBIN TOTAL S/P/B 0.5 0.2 - 1.0 MG/DL 11/05/2024 6:07 AM [facility] Comment: THIS ASSAY IS NOT RECOMMENDED FOR PATIENTS UNDERGOING TREATMENT WITH ELTROMBOPAG DUE TO THE POTENTIAL FOR FALSELY ELEVATED RESULTS. ALKALINE PHOSPHATASE S/P/B 140(H) 50 - 130 U/L 11/05/2024 6:07 AM [facility] AST 11(L) 15 - 37 U/L 11/05/2024 6:07 AM [facility] ALT 15 14 - 59 U/L 11/05/2024 6:07 AM [facility] TOTAL PROTEIN S/P/B 6.7 6.4 - 8.2 G/DL 11/05/2024 6:07 AM [facility] ALBUMIN S/P/B 3.0(L) 3.4 - 5.0 G/DL 11/05/2024 6:07 AM [facility] ANION GAP 9.9 5.0 - 15.0 MMOL/L 11/05/2024 6:07 AM [facility] OSMOLALITY (CALC) 299 MOSM/KG 025 6:07 AM [facility] Comment:REFERENCE RANGE NOT ESTABLISHED GFR ESTIMATE 68(L) >89 ML/MIN/1. 73 M2 11/05/2024 6:07 AM [facility] GFR NOTES GFR REFERENCE S: 11/05/2024 6:07 AM [facility] Comment: THE ESTIMATED GFR IS [...] us Yvette Cunningham MD LABORATORY Final Result [facility] [address] [place] [address], * (ABNORMAL) CBC W/DIFF AUTOMATED (11/05/2024 5:41 AM CDT) Only the most recent of6 resultswithin the time period is included. WBC 10.63 4.00 - 10.80 x10'3/uL 11/05/2024 5:50 AM CDT [facility] RBC 4.71 4.10 - 5.40 x10'6/uL 11/05/2024 5:50 AM CDT [facility] HGB 12.0 12.0 - 16.0 G/DL 11/05/2024 5:50 AM CDT [facility] HCT 38.5 36.0 - 47.0 % 11/05/2024 5:50 AM CDT [facility] MCV 81.7 78.0 - 100.0 FL 11/05/2024 5:50 AM CDT [facility] MCH 25.5(L) 27.0 - 31.0 PG 11/05/2024 5:50 AM CDT [facility] MCHC 31.2(L) 33.0 - 36.0 G/DL 11/05/2024 5:50 AM CDT [facility] RDW 15.9(H) 11.5 - 14.5 % 11/05/2024 5:50 AM CDT [facility] PLT 356(H) 150 - 350 x10'3/uL 11/05/2024 5:50 AM CDT [facility] MPV 10.3 7.4 - 10.4 FL 11/05/2024 5:50 AM CDT [facility] CBC COMMENT NORMAL REFERENCE RANGE NOT ESTABLISHED FOR THE PROPORTIONAL LEUKOCYTE DIFFERENTIAL. 11/05/2024 5:50 AM CDT [facility] NEUTROPHILS % 45.5 % 11/05/2024 5:50 AM CDT [facility] LYMPHOCYTES % 35.0 % 11/05/2024 5:50 AM CDT [facility] MONOCYTES % 11.8 % 11/05/2024 5:50 AM CDT [facility] EOSINOPHILS % 5.9 % 11/05/2024 5:50 AM CDT [facility] BASOPHILS % 1.1 % 11/05/2024 5:50 AM CDT [facility] IMMATURE GRANS % 0.7 % 11/06/19 5:50 AM CDT [facility] NRBC % 0.0 % 11/05/2024 5:50 AM CDT [facility] ABS. NEUTROPHILS 4.84 1.60 - 8.30 x10'3/uL 11/05/2024 5:50 AM CDT [facility] ABS. LYMPHOCYTES 3.72 0.80 - 4.70 x10'3/uL 11/05/2024 5:50 AM CDT [facility] ABS. MONOCYTES 1.25 0.00 - 1.50 x10'3/uL 11/05/2024 5:50 AM CDT [facility] ABS. EOSINOPHILS 0.63(H) 0.00 - 0.40 x10'3/uL 11/05/2024 5:50 AM CDT [facility] ABS. BASOPHILS 0.12 0.00 - 0.20 x10'3/uL 11/05/2024 5:50 AM CDT [facility] ABS. IMMATURE GRANULOCYTES 0.07(H) 0.00 - 0.03 x10'3/uL 11/05/2024 5:50 AM CDT [facility] ABS. NUCLEATED RBC'S 0.00 0.00 - 0.01 x10'3/uL 11/05/2024 5:50 AM CDT [facility] 11/05/2024 5:41 AM CDT Yvette Cunningham MD LABORATORY Final Result [facility] [address] [place] [address], * MRI LUMB SPINE WO CON (11/03/2024 10:00 AM CDT) Anatomical Region Laterality Modality Spine Magnetic Resonan ce 11/03/2024 10:0 0 AM CDT Impressions 11/03/2024 10:03 AM CDT IMPRESSION: Mild to moderate multilevel lumbar spondylosis greatest at L4-5, as described above. Ordered By: BEULAH PARRA Interpreted By: Nate Aldridge MD, 11/03/2024 10:00 AM Narrative 11/03/2024 10:03 AM CDT [facility] [address] [place] [address] Examination: MRI LUMB SPINE WO CON, 11/03/2024 [...] Procedure Note Nate Aldridge MD - 11/03/2024 [facility] [address] [place] [address] Examination: MRI LUMB SPINE WO ABIMBOLA, 11/03/2024 [...] 136 - 145 MMOL/L 11/03/2024 6:17 AM [facility] POTASSIUM S/P/B 4.1 3.5 - 5.1 MMOL/L 11/03/2024 6:17 AM [facility] CHLORIDE S/P/B 105 98 - 107 MMOL/L 11/03/2024 6:17 AM [facility] CO2 27.9 21.0 - 32.0 MMOL/L 11/03/2024 6:17 AM [facility] GLUCOSE 211(H) 70 - 99 MG/DL 11/03/2024 6:17 AM [facility] Comment: FASTING GLUCOSE 100 TO 125 MG/DL IS CONSISTENT WITH IMPAIRED FASTING GLUCOSE. FASTING GLUCOSE >125 MG/DL IS CONSISTENT WITH DIABETES. RANDOM GLUCOSE >200 MG/DL WITH HYPERGLYCEMIC SYMPTOMS IS CONSISTENT WITH DIABETES. PER ADA GUIDELINES BUN 7 6 - 24 MG/DL 11/03/2024 6:17 AM [facility] CREATININE S/P/B 0.96 0.55 - 1.02 MG/DL 11/03/2024 6:17 AM [facility] CALCIUM S/P/B 9.3 8.4 - 10.5 MG/DL 11/03/2024 6:17 AM [facility] ANION GAP 7.1 5.0 - 15.0 MMOL/L 11/03/2024 6:17 AM [facility] OSMOLALITY (CALC) 294 MOSM/KG 025 6:17 AM [facility] Comment:REFERENCE RANGE NOT ESTABLISHED GFR ESTIMATE 67(L) >89 ML/MIN/1. 73 M2 11/03/2024 6:17 AM [facility] GFR NOTES GFR REFERENCE S: 11/03/2024 6:17 AM [facility] Comment: THE ESTIMATED GFR IS [...] Beulah Parra MD LABORATORY Final Resul t [facility] [address] [place] [address], * (ABNORMAL) URINALYSIS (11/02/2024 3:46 PM CDT) Only the most recent of3 resultswithin the time period is included. COLOR (U) YELLOW 11/02/2024 4:08 PM CDT [facility] TRANSPARENCY CLEAR 11/02/2024 4:08 PM CDT [facility] SPECIFIC GRAVITY (U) 1.030(H) 1.000 - 1.025 11/02/2024 4:08 PM CDT [facility] Comment:EQUAL TO OR GREATER THAN U PH 5.5 5.0 - 8.0 11/02/2024 4:08 PM CDT [facility] LEUKOCYTES (U) NEGATIVE NEGATIVE 11/02/2024 4:08 PM CDT [facility] NITRITES NEGATIVE NEGATIVE 11/02/2024 4:08 PM CDT [facility] PROTEIN RANDOM (U) 2+(A) NEGATIVE 11/02/2024 4:08 PM CDT [facility] GLUCOSE (U) TRACE(A) NEGATIVE 11/02/2024 4:08 PM CDT [facility] KETONES MG/DL (U) 2+(A) NEGATIVE 11/02/2024 4:08 PM CDT [facility] UROBILINOGEN 0.2 <1.0 EU/DL 11/02/2024 4:08 PM CDT [facility] BLOOD (U) NEGATIVE NEGATIVE 11/02/2024 4:08 PM CDT [facility] WBC/HPF OCCASIONAL(A ) 0 - 5 /HPF 11/02/2024 4:08 PM CDT [facility] RBC/HPF NONE SEEN(A) 0 - 5 /HPF 11/02/2024 4:08 PM CDT [facility] EPI/LPF 1+ /LPF 11/02/2024 4:08 PM CDT [facility] BACTERIA (U) TRACE /HPF 11/02/2024 4:08 PM CDT [facility] BILIRUBIN CONF ICTO (U) NEGATIVE NEGATIVE 11/02/2024 4:08 PM CDT [facility] URINE SPECIMEN OBTAINED BY CLEAN CATCH PROCEDURE / Unknown 11/02/2024 3:46 PM CDT Beulah Parra MD URINE ORDERABLES Final Resu lt [facility] [address] [place] [address], [place] [phone] * CULTURE URINE (11/02/2024 3:46 PM CDT) Only the most recent of2 resultswithin the time period is included. SPEC DESCRIPTION URINE CLEAN CATCH 11/02/2024 3:46 PM CDT [facility] SPECIAL REQUESTS NO SPECIAL REQUEST 11/02/2024 3:46 PM CDT [facility] CULTURE RESULT FEW CONTAMINANTS 09/2024 6:36 AM CDT [facility] URINE SPECIMEN OBTAINED BY CLEAN CATCH PROCEDURE / Unknown 11/02/2024 3:46 PM CDT 11/02/2024 6:43 PM CDT Beulah Parra MD MICROBIOLOGY - GENERAL ORDE [facility] Final Result Performing Organization Address City/[facility] [address]/ZIP Co de Phone Number [facility] [address] [place] [address], [place] [phone] [facility] [address] [place] [address], * XR CHEST PORTABLE (11/02/2024 3:00 PM CDT) Anatomical Region Laterality Modality Chest Radiographic Keshia ging 11/02/2024 3:15 PM CDT Impressions 11/02/2024 3:15 PM CDT IMPRESSION: No radiographic evidence of active chest disease. Ordered By: BEULAH PARRA Interpreted By: Escobar Hernandez MD, 11/02/2024 3:15 PM Narrative 11/02/2024 3:15 PM [address]T [address] [place] [address] Examination: XR CHEST PORTABLE Exam time: 11/02/2024 [...] Procedure Note Escobar Hernandez MD - 11/02/[address] [place] [address] Examination: XR CHEST PORTABLE Exam time: 11/02/2024 [...] SPEC DESCRIPTION BLOOD 11/02/2024 1:21 PM CDT [facility] SPECIAL REQUESTS NO SPECIAL REQUEST 11/02/2024 1:21 PM CDT [facility] CULTURE RESULT NO GROWTH 5 DAYS 11/07/2024 7:53 PM CDT [facility] BLOOD SPECIMEN OBTAINED FOR BLOOD CULTURE / Unknown 11/02/2024 2:24 PM CDT 11/02/2024 2:25 PM CDT Beulah Parra MD MICROBIOLOGY - GENERAL ORDE [facility] Final Result [facility] [address] [place] [address], [phone] [facility] [address] [place] [address], * (ABNORMAL) Blood gas, venous (11/02/2024 2:16 PM CDT) PH VENOUS 7.31(L) 7.32 - 7.43 11/02/2024 2:28 PM CDT [facility] PCO2 VENOUS 58.0 MMHG 11/02/2024 2:28 PM CDT [facility] Comment:NO REFERENCE RANGE H BEEN ESTABLISHED PO2 VENOUS <30.0 MM HG 11/02/2024 2:28 PM CDT [facility] Comment:NO REFERENCE RANGE H BEEN ESTABLISHED TOTAL CO2 VENOUS 31.0(H) 22.0 - 26.0 MMOL/L 11/02/2024 2:28 PM CDT [facility] BASE EXCESS VENOUS 1.6 MMOL/L 11/02/2024 2:28 PM CDT [facility] Comment:NO REFERENCE RANGE H BEEN ESTABLISHED O2 SAT VENOUS NOT CALCULATED % 025 2:28 PM CDT [facility] Comment:NO REFERENCE RANGE H BEEN ESTABLISHED BICARB VENOUS 29.2(H) 22.0 - 29.0 MMOL/L 11/02/2024 2:28 PM CDT [facility] O2 ADMIN VENOUS 2L 2:16 PM CDT [facility] 11/02/2024 2:16 PM CDT us Beulah Parra MD LABORATORY Final Resul t [facility] [place] [address], * CT HEAD WO CON (11/02/2024 1:59 PM CDT) Only the most recent of2 resultswithin the time period is included. Anatomical Region Laterality Modality Head Computed Tomogra phy 11/02/2024 2:11 PM CDT Impressions 11/02/2024 2:13 PM CDT IMPRESSION: 1) No acute intracranial abnormality is demonstrated. Ordered By: BEULAH PARRA Interpreted By: Adolfo Saunders MD, 11/02/2024 2:11 PM Narrative 11/02/2024 2:13 PM CDT [address] [place] [address] Examination: CT HEAD WO CON Exam time: [...] Procedure Note Adolfo Saunders MD - 11/02/[address] [place] [address] Examination: CT HEAD WO CON Exam time: [...] PM CDT) 11/02/2024 1:51 PM CDT Narrative [facility] - 11/03/2024 5:11 AM CDT [address] [place] [address] Test Date: 2024-11-02 Pat Name: PRAVIN DIMITRY Department: 3 Room: 318 Gender: Female File Conversion Operator: : [id number] Requested By: BEULAH PARRA Order Number: [id number] Reading MD: Yang Blanco Measurements Intervals [place] Rate: 104 P: 30 [place]: 132 QRS: 6 QRSD: 78 T: 39 QT: 352 QTc: 464 Interpretive Statements SINUS TACHYCARDIA MINIMAL VOLTAGE CRITERIA FOR LVH, CONSIDER NORMAL VARIANT NONSPECIFIC ST & T-WAVE ABNORMALITY ABNORMAL RHYTHM ECG Procedure Note Yang Blanco MD - 11/03/[address] [place] [address] Test Date: 2024-11-02 Pat Name: PRAVIN MORAES Department: 3 Room: 318 Gender: Female File Conversion Operator: : [id number] Requested By: BEULAH PARRA Order Number: [id number] Reading MD: Yang Blanco Measurements Intervals [place] Rate: 104 P: 30 [place]: 132 QRS: 6 QRSD: 78 T: 39 QT: 352 QTc: 464 Interpretive Statements SINUS TACHYCARDIA MINIMAL VOLTAGE CRITERIA FOR LVH, CONSIDER NORMAL VARIANT NONSPECIFIC ST & T-WAVE ABNORMALITY ABNORMAL RHYTHM ECG us Beulah Parra MD ECG ORDERABLES Final Resul t [facility] * LACTIC ACID W REFLEX (SEPSIS) (11/02/2024 1:46 PM CDT) LACTIC ACID VENOUS 2.0 0.4 - 2.0 MMOL/L 11/02/2024 3:04 PM CDT [facility] 11/02/2024 1:46 PM CDT us Beulah Parra MD LABORATORY Final Resul t [facility] [address] [place] [id number], * TSH W/REFLEX (11/02/2024 1:46 PM CDT) [facility] TSH 1.324 0.358 - 3.740 uIU/ML 11/02/2024 3:06 PM CDT [facility] Comment: FREE T4 NOT INDICATED ASSAY PERFORMED BY CHEMILUMINESCENT IMMUNOASSAY METHODOLOGY USING SIEMENS DIMENSION REAGENT. PATIENT RESULTS DETERMINED BY ASSAYS FROM DIFFERENT MANUFACTURERS AND/OR BY DIFFERENT METHODS MAY NOT BE COMPARABLE. 11/02/2024 1:46 PM CDT us Beulah Parra MD LABORATORY Final Resul t Performing Organization Address City/[facility] [address]/ZIP Co de Phone Number [facility] [address] [place] [address], * PRO-BRAIN NATRIURETIC PEPTIDE (11/02/2024 1:46 PM CDT) [facility] PRO-B TYPE NATRIURETIC PEPTIDE 92 <125 PG/ML 11/02/2024 3:10 PM CDT [facility] Comment: CUT POINTS ESTABLISHED BY INTERNATIONAL [...] LABORATORY Final Resul t Performing Organization Address City/[facility] [address]/ZIP Co de Phone Number [facility] [address] [place] [address], * TROPONIN, QUANT (11/02/2024 1:46 PM CDT) [facility] TROPONIN I HIGH SENSITIVITY 10 0 - 51 ng/L 11/02/2024 3:10 PM CDT [facility] 11/02/2024 1:46 PM CDT us Beulah Parra MD LABORATORY Final Resul t Performing Organization Address [facility] [address]/[facility] de Phone Number [facility] [address] [place] [address], * (ABNORMAL) AMMONIA (11/02/2024 1:46 PM CDT) AMMONIA <10(L) 11 - 32 UMOL/L 11/02/2024 2:52 PM CDT [facility] 11/02/2024 1:46 PM CDT us Beulah Parra MD LABORATORY Final Resul t Performing Organization Address [facility] de Phone Number [facility] [address] [place] [address], * (ABNORMAL) MAGNESIUM (11/02/2024 1:46 PM CDT) MAGNESIUM 1.7(L) 1.8 - 2.4 MG/DL 11/02/2024 3:10 PM CDT [facility] 11/02/2024 1:46 PM CDT Beulah Parra MD LABORATORY Final Resul t Performing Organization Address [facility] [address]/[facility] de Phone Number [facility] [address] [place] [address], * (ABNORMAL) LIPASE (11/02/2024 1:46 PM CDT) LIPASE 13(L) 16 - 77 UNITS/L 11/02/2024 3:10 PM CDT [facility] 11/02/2024 1:46 PM CDT us Beulah Parra MD LABORATORY Final Resul t Performing Organization Address City/[facility] [address]/[facility] Co de Phone Number [facility] [address] [place] [address], * (ABNORMAL) SALICYLATE (11/02/2024 1:46 PM CDT) Only the most recent of2 resultswithin the time period is included. SALICYLATES 1.8(L) 2.8 - 20.0 MG/DL 11/02/2024 3:06 PM CDT [facility] 11/02/2024 1:46 PM CDT us Beulah Parra MD LABORATORY Final Resul t Performing Organization Address [facility] [address]/[facility] Co de Phone Number [facility] [address] [place] [address], * ETHANOL (11/02/2024 1:46 PM CDT) Only the most recent of2 resultswithin the time period is included. ALCOHOL S/P/B <0.003 <0.003 G/DL 11/02/2024 3:08 PM CDT [facility] 11/02/2024 1:46 PM CDT us Beulah Parra MD LABORATORY Final Resul t Performing Organization Address City/[facility] [address]/ZIP Co de Phone Number [facility] [address] [place] [address], [place] [phone] * CK (CPK) (11/02/2024 1:46 PM CDT) CPK 75 26 - 192 U/L 11/02/2024 3:10 PM CDT [facility] 11/02/2024 1:46 PM CDT us Beulah Parra MD LABORATORY Final Resul t Performing Organization Address [facility] [address]/[facility] de Phone Number [facility] [place] [address], * (ABNORMAL) ACETAMINOPHEN (11/02/2024 1:46 PM CDT) Only the most recent of2 resultswithin the time period is included. ACETAMINOPHEN S/P/B 2.5(L) 10.0 - 30.0 MCG/ML 11/02/2024 3:06 PM CDT [facility] 11/02/2024 1:46 PM CDT Beulah Parra MD LABORATORY Final Resul t Performing Organization Address [facility] de Phone Number [facility] [address] [place] [address], * THYROID STIM HORMONE, TSH (10/02/2024 12:42 PM CDT) TSH 1.144 0.358 - 3.740 uIU/ML 10/02/2024 1:21 PM CDT [facility] Comment: ASSAY PERFORMED BY CHEMILUMINESCENT IMMUNOASSAY METHODOLOGY USING SIEMENS DIMENSION REAGENT. PATIENT RESULTS DETERMINED BY ASSAYS FROM DIFFERENT MANUFACTURERS AND/OR BY DIFFERENT METHODS MAY NOT BE COMPARABLE. 10/02/2024 12:4 2 PM CDT Mike Dunbar MD LABORATORY Final Result Performing Organization Address [facility] [address]/[facility] Co de Phone Number [facility] [address] [place] [address], * CORONAVIRUS (COVID-19) ANTIGEN (10/02/2024 12:30 PM CDT) CORONAVIRUS ANTIGEN IA NEGATIVE NEGATIVE 10/02/2024 1:17 PM CDT [facility] Comment: NEGATIVE RESULTS DO NOT RULE [...] SPECIMEN TYPE NASAL 10/02/2024 12:32 PM CDT [facility] NASAL NASAL STRUCTURE / Unknown 10/02/2024 12:30 PM CDT Mike Dunbar MD MICROBIOLOGY - GENERAL ORDERA BLES Final Result [facility] [address] [place] [address], * (ABNORMAL) DRUG SCREEN RAPID (10/02/2024 12:30 PM CDT) Pathologist [facility] CANNABINOIDS SCREEN (U) POSITIVE(A) NEGATIVE 10/02/2024 1:52 PM CDT [facility] PHENCYCLIDINE PCP (U) NEGATIVE NEGATIVE 10/02/2024 1:52 PM CDT [facility] COCAINE METABOLITES (U) NEGATIVE NEGATIVE 10/02/2024 1:52 PM CDT [facility] METHAMPHETAMINE SCREEN (U) NEGATIVE NEGATIVE 10/02/2024 1:52 PM CDT [facility] OPIATE SCREEN (U) NEGATIVE NEGATIVE 025 1:52 PM CDT [facility] AMPHETAMINE SCREEN (U) POSITIVE(A) NEGATIVE 10/02/2024 1:52 PM CDT [facility] BENZODIAZEPINES SCREEN (U) POSITIVE(A) NEGATIVE 10/02/2024 1:52 PM CDT [facility] TRICYCLIC ANTIDEPRESSANT SCREEN (U) POSITIVE(A) NEGATIVE 10/02/2024 1:52 PM CDT [facility] METHADONE (U) NEGATIVE NEGATIVE 10/02/2024 1:52 PM CDT [facility] BARBITURATES SCREEN (U) NEGATIVE NEGATIVE 10/02/2024 1:52 PM CDT [facility] OXYCODONE SCREEN (U) NEGATIVE NEGATIVE 10/02/2024 1:52 PM CDT [facility] URINE TOX COMMENT THIS TEST METHODOLOGY IS DESIGNED AND OFFERED A RAPID TURNAROUND, QUALITATIVE SCREENING PROCEDURE TO AID IN THE IMMEDIATE MEDICAL ASSESSMENT OF PATIENTS SUSPECTED OF SUBSTANCE ABUSE. 10/02/2024 12:44 PM CDT [facility] Comment: CLINICAL CONSIDERATION AND PROFESSIONAL JUDGMENT MUST BE APPLIED TO ANY DRUG OF ABUSE TEST RESULT, BOTH POSITIVE AND NEGATIVE. CONFIRMATORY QUANTITATIVE RESULTS ARE AVAILABLE THROUGH OUR [facility]. URINE SPECIMEN / Unknown 10/02/2024 12:30 PM CDT Mkie Dunbar MD URINE ORDERABLES Final Result Performing Organization Address City/[facility] [address]/ZIP Co de Phone Number [facility] [address] [place] [address], * (ABNORMAL) HEMOGLOBIN, GLYCOSYLATED (04/11/2024 11:15 PM ENERGY ADMINISTRATOR) HGB A1C 7.0(H) <5.7 % 04/12/2024 12:08 AM ENERGY ADMINISTRATOR [facility] ESTIMATED AVG GLUCOSE 154(H) 74 - 114 MG/DL 04/12/2024 12:08 AM ENERGY ADMINISTRATOR [facility] 04/11/2024 11:1 5 PM ENERGY ADMINISTRATOR Maris Cardenas MD LABORATORY Final Result Performing Organization Address City/[facility] [address]/ZIP Co de Phone Number [facility] [address] [place] [address], [phone] * HEPATITIS PANEL,ACUTE (08/17/2023 6:53 PM CDT) HEPATITIS B SURFACE AG NON-REACT MYCHAL NON-REACT MYCHAL 08/17/2023 8:17 PM CDT [facility] Comment:HBsAg NOT DETECTED. HEP B CORE IGM NON-REACT MYCHAL NON-REACT MYCHAL 08/17/2023 8:17 PM CDT [facility] Comment: IgM ANTI HBc NOT DETECTED. DOES NOT EXCLUDE THE POSSIBILITY OF EXPOSURE TO OR INFECTION WITH HBV. NO RETEST REQUIRED. HIGH DOSES OF BIOTIN MAY INTERFERE WITH THIS TEST RESULT. CORRELATION TO CLINICAL HISTORY AND PRESENTATION RECOMMENDED. HAV IGM NON-REACT MYCHAL NON-REACT MYCHAL 08/17/2023 8:17 PM CDT [facility] Comment: IgM ANTI HAV NOT DETECTED. DOES NOT EXCLUDE THE POSSIBILITY OF EXPOSURE TO OR INFECTION WITH HAV. LEVELS OF IgM ANTI HAV MAY BE BELOW THE CUTOFF IN EARLY INFECTION. HEPATITIS C AB NON-REACT MYCHAL NON-REACT MYCHAL 08/17/2023 8:17 PM CDT [facility] Comment: ANTIBODIES TO HCV NOT DETECTED. DOES NOT EXCLUDE THE POSSIBILITY OF EXPOSURE TO HCV. 08/17/2023 6:53 PM CDT us Wil Alexander NP LABORATORY Final Resul t [facility] [address] [place] [phone], [id number] * MG SCREENING W SREE JUAN DIGI [...] Most Recently Relevant to Health Maintenance Insurance [facility] Advance Directives * Full Code (Latest Code [...] 1:05 AM 04/28/2024 3:59 PM Care Teams Computer Teacher Relationship Specialty Start Date End Date Yvette Cunningham MD [employer] [place] [address] PCP - General FAMILY PRACTICE 07/08/24 Alethea Roberto APNP [address] [place] [address] BRIDGET RICHARD [address] Nurse Practitioner NURSE PRACTITIONER 03/09/21
--- OUTSIDE RECORDS SUMMARY | 2024-12-26 13:19 | XMS_ITS | Encounter Summary ---
Author Organization [facility] Address [address] [place] [address] Care Team Providers Care Hanger Name Role Phone Alethea Roberto Unavailable [phone] Alethea Roberto Primary Care Provider [phone] Yvette Cunningham MD Primary Care Provider [phone] Encounter Details Date Type Department Care Team (Late st Contact Info) Description 06/17/2024 enGreet Message Enc [facility] [address], [facility] [address] [place] [address] Kasey Newberry PA [address] [place] [address] Visit Follow Up Social History Tobacco Use [...] from your doctor or pharmacy? Never 04/11/2024 [facility] Utilities Answer Date Recorded In the [...] 04/11/2024 How often do you attend [facility] or tenriism services? Patient declined 04/11/2024 Do you belong to any clubs o r organizations such as latter-day groups, unions, fraternal or athletic groups, or [...] and heating? Not hard at all 04/11/2024 [facility] [place] [facility] Occupat ional Health - Occupational Stress [...] place to sleep or slept in a skilled nursing (including now)? No 08/07/2023 Housing Stability Vital Sign Answer Don e Recorded In the last 12 months, was t here a time when you were not able to pay the mortgage or rent on time? No 04/11/2024 In the past 12 months, how m any times have you moved where you were living? 0 04/11/2024 At any time in the past 12 m [facility], were you homeless or living in a skilled nursing (including now)? 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
--- OUTSIDE RECORDS SUMMARY | 2024-12-26 13:19 | XMS_ITS | Encounter Summary ---
Author Organization [facility] Address [address] [place] [address] Care Team Providers Care Process Worker Name Role Phone Alethea Roberto Primary Care Provider Alethea Roberto Unavailable [phone] Alethea Roberto Primary Care Provider Yvette Cunningham MD Primary Care Provider [phone] Encounter Details Date Type Department Care Team (Late st Contact Info) Description 12/13/2020 [employer] Message Enc [facility] [address], [address] [address] Jamil Lyons MD [address] [place], [place] [id number] Visit Follow Up Social History Tobacco Use [...] Sex Assigned at Female 06/16/2024 3:02 PM VERTICAL MILL OPERATOR Legal Sex Female 10:13 AM CDT [...] Rule Out 04/10/2024 04/10/2024 04/10/2024 12:09 PM VERTICAL MILL OPERATOR COVID-19 Rule Out 10/02/2024 10/02/2024 10/02/2024 1:17 PM CDT documented as of this encounter Care Teams Process Worker Relationship Specialty Start Date End Date Alethea Roberto APNP [address] [place] [address] PCP - General NURSE PRACTITIONER 05/06/20 03/08/21 Alethea Roberto APNP [address] [place] [address] PCP - General NURSE PRACTITIONER 02/18/23 07/07/24 Yvette Cunningham MD [address] [place] [address] PCP - General FAMILY PRACTICE 07/08/24 Alethea Roberto APNP [address] [place] [address] Nurse Practitioner NURSE PRACTITIONER 03/09/21 documented as of this encounter
--- NOTE | 2024-12-26 13:26 | ED_ITS ---
HPI - Nausea/Vomiting/Diarrhea General Chief complaint: Nausea/Vomiting/Diarrhea Stated complaint: nausea , vomiting Source: patient Mode of arrival: ambulatory Limitations: no limitations History of Present Illness HPI Narrative: 59-year-old female a history of CVA with memory loss, depression, hypertension, dyslipidemia, GERD, recent trimalleolar fracture repair,chronic low back pain on daily opiates, COPD presented to the ED on 12/23/2024 with vomiting and diarrhea. The patient was noted to have urinary tract infection and treated with cephalexin and Zofran. The patient presents to the ED with a four day history of -- ongoing nausea, vomiting and diarrhea. The patient had 2 episodes of vomiting this morning and 2 episodes of diarrhea. -- Complains of diffuse abdominal pain. No fever or chills. Severe anorexia. Blood sugar was noted to be 120. MD elicited complaint: nausea, vomiting, diarrhea and abdominal pain Pertinent past history: anorexia Onset (ago): day(s) ( 4 days) Description of vomiting: watery Description of diarrhea: watery Associated nausea: Yes Associated abdominal pain: Yes Location of pain: diffuse Pain consistency: constant Severity: mild Quality: aching Exacerbating factors: none Relieving factors: none Context: recent antibiotic use Associated symptoms: denies other symptoms and loss of appetite Treatment prior to arrival: other ( cephalexin) Related Data Home Medications ?Medication ?Instructions ?Recorded ?Confirmed ?Last Taken ?Type albuterol sulfate 90 mcg/actuation 2 puff inhalation Q4-5H PRN 04/14/21 12/14/24 11/11/24 History aerosol inhaler Shortness Of Breath cyclobenzaprine 10 mg tablet 10 mg PO TID PRN Muscle Spasm 04/14/21 12/14/24 11/07/24 History furosemide 20 mg tablet 20 mg PO DAILY 04/14/21 12/14/24 11/13/24 History insulin aspart U-100 100 unit/mL 1 sliding scale dose subcut 04/14/21 12/14/24 Unknown History subcutaneous solution (Novolog USEASDIRECTD U-100 Insulin aspart) lisinopril 30 mg tablet 30 mg PO DAILY 04/14/21 12/14/24 11/13/24 History melatonin 10 mg tablet 10 mg PO HS 04/14/21 12/14/24 11/13/24 History rosuvastatin 20 mg tablet 20 mg PO HS 04/14/21 12/14/24 11/13/24 History amlodipine 10 mg tablet 10 mg PO DAILY 10/18/24 12/14/24 11/13/24 History aspirin 81 mg chewable tablet 81 mg PO DAILY 10/18/24 12/14/24 11/13/24 History (Aspirin Childrens) calcium carbonate (Calcium 500) 500 mg PO DAILY 10/18/24 12/14/24 11/13/24 History fluticasone 500 mcg-salmeterol 50 1 inh inhalation Q12H 10/18/24 12/14/24 11/13/24 History mcg/dose blistr powdr for inhalation (Wixela Inhub) metoprolol succinate 50 mg 50 mg PO DAILY 10/18/24 12/14/24 11/13/24 History tablet,extended release 24 hr buspirone 15 mg tablet 15 mg PO BID 11/17/24 12/14/24 Unknown History fluoxetine 20 mg capsule 20 mg PO DAILY 11/17/24 12/14/24 Unknown History fluoxetine 40 mg capsule (Prozac) 40 mg PO HS 11/17/24 12/14/24 Unknown History gabapentin 100 mg capsule 100 mg PO TID 11/17/24 12/14/24 Unknown History olanzapine 5 mg tablet 5 mg PO HS 11/17/24 12/14/24 Unknown History oxycodone-acetaminophen 5 mg-325 1 tablet PO Q12H PRN pain 11/17/24 12/14/24 Unknown History mg tablet Allergies Allergy/AdvReac Type Severity Reaction Status Date / Time Sulfa (Sulfonamide Allergy Unknown Rash Verified 12/26/24 13:32 Antibiotics) Latex, Natural Rubber Allergy Swelling Verified 12/26/24 13:32 of Lip/Tongue/Throat Review of Systems 2 Review of Systems: All systems reviewed & are unremarkable except as noted in HPI and below Constitutional: Constitutional: Reports as per HPI and Reports no additional constitutional complaints Eyes: Eyes: Reports as per HPI and Reports no additional eye complaints ENT: Reports system reviewed and no additional complaints, except as documented and Reports as per HPI Cardiovascular: Cardiovascular: Reports as per HPI and Reports no additional cardiovascular complaints Respiratory: Respiratory: Reports as per HPI and Reports no additional respiratory complaints Gastrointestinal: Gastrointestinal: Reports as per HPI, Reports no additional gastrointestinal complaints, Reports abdominal pain, Reports diarrhea, Reports nausea and Reports vomiting Genitourinary: Genitourinary: Reports no additional female genitourinary complaints and Reports as per HPI Musculoskeletal: Musculoskeletal: Reports no additional musculoskeletal complaints and Reports as per HPI Integumentary/Breasts: Skin/Breast: Reports system reviewed and no additional complaints, except as docu and Reports as per HPI Neurologic: Reports system reviewed and no additional complaints, except as documented and Reports as per HPI Psychiatric: Psychiatric: Reports no additional psychiatric complaints and Reports as per HPI Endocrine: Endocrine: Reports no additional endocrine complaints and Reports as per HPI Hematologic/Lymphatic: Hematologic/Lymphatic: Reports no additional hematologic/lymphatic complaints and Reports as per HPI Allergic/Immunologic: Allergic/Immunologic: Reports no additional allergic/immunologic complaints and Reports as per HPI [facility] Past Medical History Medical History Trimalleolar fracture of right ankle Morbid obesity with BMI of 50.0-59.9, adult Arthritis Dyspnea on exertion COPD (chronic obstructive pulmonary disease) with chronic bronchitis Osteopenia Chronic back pain Fibromyalgia Displaced bimalleolar fracture of right ankle Hemorrhoids GERD (gastroesophageal reflux disease) Diabetes Torticollis Depression with suicidal ideation CVA (cerebral vascular accident) Dyslipidemia Hypertension Surgical History Surgical History Hx of cholecystectomy Family History Family History Father Alzheimer dementia Mother Parkinson's disease Mother No problems noted. Other Unknown family medical history Social History Social History Smoking status: Former smoker Tobacco type: cigarettes Smoking end date: 06/03/22 Alcohol intake: never Substance use: current Substance use type: marijuana Other substance usage details: USING [employer] Last use: 11/10/2024 Do You Feel Safe in your Home?: Yes Lack of Transportation: No Lack of Food: Never True Current Housing: I Have Housing Concerned About Future Housing: No Difficulty Paying Gas/Electric Bills: No Difficulty Paying for Meds: No Currently Unemployed: No Education: Decline to Answer Difficulty w/ Childcare or Family Care: No Spiritual care concerns: No Exam 2 Narrative: vitals are stable. Afebrile. Oxygen saturation of 95% on room air. Const: General: no acute distress Nutritional Appearance: well nourished Orientation/consciousness: patient oriented x3 Limitations: no limitations HENMT: Head: normal to inspection Ears: external ears normal F emerson/Nose/Sinus: Normal external nose present Face and sinus: normal facial exam Mouth: Yes Normal oral and palatal mucosa present Throat: posterior oropharynx normal Eyes: Conjunctivae: conjunctivae normal Cornea: corneas normal Pupils: E qual, round and reactive pupils present EOM: EOMs intact bilaterally D irect Ophthalmoscopy: no photophobia Neck: Neck: normal visual inspection, no lymphadenopathy and no meningeal signs Chest: Chest palpation & inspection: normal inspection of the chest Resp: Effort & Inspection: normal respiratory effort Auscultation: clear to auscultation bilaterally Cardio: Rate: regular rate Rhythm: regular rhythm GI: GI Palp: Yes Soft to palpation Auscultation: normal bowel sounds O ther: No tenderness/rigidity / rebound. : General: Yes no CVA tenderness Back/Spine/Pelvis: Back: no CVA tenderness Skin: General skin exam: normal color Rashes: no rashes Wounds: no wounds Neuro: General: patient oriented x3, moves all extremities, no meningeal signs, no focal motor deficits and CN's II-XI intact bilaterally Cranial nerves: Yes Nystagmus not present Speech: normal speech Gait exam (Neuro): Normal gait present Extrem: General: normal to inspection and no clubbing, cyanosis or edema Psych: Mental Status: mental status grossly normal Affect: normal affect Attitude: cooperative Course Course Emergency Course: Abdominal pain-Transaminitis with dilatation of intra and extrahepatic ducts. CBD measuring 14 mm at the head of the pancreas. White cell count is noted to be 11. 6 which is down from 16 done two days ago. Patient is on cephalexin for UTI . patient had a normal bilirubin. Alkaline phosphatase was noted to be 187, AST 92 and ALT 69 Gastroenteritis elevated lipase of 365. CT of the abdomen did not show any evidence of acute pancreatitis. Vital Signs Vital signs: Vital Signs Temperature 36.6 C 12/26/24 13:15 Pulse Rate 128 H 12/26/24 13:15 Respiratory Rate 18 12/26/24 13:15 Blood Pressure 139/83 12/26/24 13:15 Pulse Oximetry 95 12/26/24 13:15 Oxygen Delivery Room Air 12/26/24 13:15 Temperature 36.6 C 12/26/24 13:15 Pulse Rate 104 H 12/26/24 16:31 Respiratory Rate 16 12/26/24 16:30 Blood Pressure 131/63 12/26/24 16:31 Pulse Oximetry 93 12/26/24 16:31 Oxygen Delivery Room Air 12/26/24 13:15 Transfer Transfered to: Other ( [facility]) Transportation: BLS MDM - Nausea/Vomiting/Diarrhea MDM Narrative Medical decision making narrative: abdominal pain gastroenteritis dilatation of intra and extrahepatic biliary ducts Differential Diagnosis Differential diagnosis: Likely gastroenteritis Medical Records Attestation: I reviewed the patient's medical records. Lab Data Attestation: I reviewed the patient's lab results. 12/26/24 14:00 12/26/24 14:00 Labs: Lab Results 12/26/24 12/26/24 12/26/24 Range/Units 13:27 13:46 14:00 WBC 11.6 H (4.8-10.8) K/mm3 RBC 4.56 (4.20-5.40) M/mm3 Hgb 12.0 (12.0-15.0) g/dL Hct 38.6 (35.0-49.0) % MCV 84.6 (78.0-102.0) fL MCH 26.3 L (27.0-31.0) pg MCHC 31.1 L (32-36) g/dL RDW 18.5 H (11.6-14.4) % Plt Count 362 (150-420) K/mm3 MPV 10.1 (9.2-11.8) fl Immature Gran % (Auto) 0.3 H (0.0-0.0) % Neut % (Auto) 53.1 (50.0-70.0) % Lymph % (Auto) 32.7 (18.0-42.0) % [place] % (Auto) 11.2 H (2.0-11.0) % Eos % (Auto) 1.9 (1.0-6.0) % Baso % (Auto) 0.8 (0.0-1.0) % Lymph # (Auto) 3.78 (1.10-4.50) K/mm3 [place] # (Auto) 1.29 H (0.10-0.90) K/mm3 Eos # (Auto) 0.22 (0.02-0.50) K/mm3 Baso # (Auto) 0.09 (0.00-0.10) K/mm3 Abs Immat Gran (auto) 0.03 H (0.00-0.00) K/mm3 Absolute Neuts (auto) 6.14 (1.70-7.20) K/mm3 Absolute Nucleated RBC 0.00 (0.00-0.00) K/mm3 Nucleated RBC % 0.0 (0-0.0) % PT 10.5 (9.50-12.1) Seconds INR 0.9 Sodium 137 (137-145) mmol/L Potassium 3.8 (3.4-5.0) mmol/L Chloride 106 (98-107) mmol/L Carbon Dioxide 25 (22-30) mmol/L Anion Gap 6 (4-12) mmol/L BUN 8 D (7-17) mg/dL Creatinine 0.83 (0.7-1.0) mg/dL Estim Creat Clear Calc 58 ml/min Estimated GFR > 60 (59 - ) Glucose 126 H (65-110) mg/dL POC Capillary Glucose 124 H (65-105) mg/dl Calculated Osmolality 284 L (285-295) mOsm/kg Lactic Acid 0.9 (0.4-2.0) mmol/L Calcium 8.6 (8.4-10.2) mg/dL Total Bilirubin 0.5 (0.2-1.3) mg/dL AST 92 H (14-36) U/L ALT 69 H (6-35) U/L Alkaline Phosphatase 187 H (38-126) U/L Total Protein 6.5 (6.3-8.2) g/dL Albumin 3.7 (3.5-5.1) g/dL Lipase 365 H (23-300) U/L Urine Color Light yellow (Yellow) Urine Appearance Clear (Clear) Urine pH 6.0 (5.0-8.0) Ur Specific [place] 1.010 (1.010-1.020) Urine Protein Negative (Negative) Urine Glucose (UA) Negative (Negative) Urine Ketones Negative (Negative) Ur Blood (Man) Negative (Negative) Urine Nitrate Negative (Negative) Urine Bilirubin Negative (Negative) Urine Urobilinogen 0.2 (0.2-1.0) mg/dL Leukocyte Esterase Rfl 2+ H (Negative) JINA/UL Urine RBC None seen (0-2) /hpf Urine WBC 7-9 H (0-3) /hpf Ur Squamous Epith Cells Rare (Few) /hpf Urine Bacteria None seen (None) /hpf Ur Oval Fat Bodies None (None) /lpf Discharge Plan Discharge Clinical Impression: Transaminitis Abdominal pain Qualifiers: Abdominal location: generalized Qualified Code(s): R10.84 - Generalized abdominal pain Patient Disposition: Still a Patient Condition: Stable Additional Instructions: transfer patient to [facility]. Patient has been accepted by Patient Language: Senegalese Prescriptions: No Action cyclobenzaprine 10 mg tablet 10 mg PO TID PRN (Reason: Muscle Spasm) lisinopril 30 mg tablet 30 mg PO DAILY furosemide 20 mg tablet 20 mg PO DAILY albuterol sulfate 90 mcg/actuation HFA aerosol inhaler 2 puff INHALATION Q4-5H PRN (Reason: Shortness Of Breath) rosuvastatin 20 mg tablet 20 mg PO HS insulin aspart U-100 [Novolog U-100 Insulin aspart] 100 unit/mL Solution 1 sliding scale dose SUBCUT USEASDIRECTD Patient Comments: Patient states it was off for a possible back surgery Rx Instructions: pt has insulin pump pre set. 8484-2407 2.20 units/hr [id number] 1.90 units/hr ICR:7 ISF:25 TARGET:100-110 melatonin 10 mg Tablet 10 mg PO HS amlodipine 10 mg tablet 10 mg PO DAILY fluticasone propion-salmeterol [Wixela Inhub] 500-50 mcg/dose blister with device 1 inh INHALATION Q12H aspirin [Aspirin Childrens] 81 mg tablet,chewable 81 mg PO DAILY calcium carbonate [Calcium 500] 500 mg calcium (1,250 mg) tablet,chewable 500 mg PO DAILY metoprolol succinate 50 mg tablet extended release 24 hr 50 mg PO DAILY pantoprazole 40 mg Tablet,Delayed Release (Dr/Ec) 40 mg PO Q12HR Qty: 60 0RF ondansetron 4 mg tablet,disintegrating 4 mg PO Q8H PRN (Reason: nausea and vomiting) Qty: 30 0RF cephalexin 500 mg capsule 500 mg PO Q8H Qty: 15 0RF ondansetron 4 mg tablet,disintegrating 4 mg PO Q8H Qty: 20 0RF gabapentin 100 mg capsule 100 mg PO TID olanzapine 5 mg tablet 5 mg PO HS buspirone 15 mg tablet 15 mg PO BID fluoxetine 20 mg capsule 20 mg PO DAILY fluoxetine [Prozac] 40 mg capsule 40 mg PO HS oxycodone-acetaminophen 5-325 mg tablet 1 tablet PO Q12H PRN (Reason: pain) magnesium oxide 400 mg (241.3 mg magnesium) Tablet 400 mg PO BID Qty: 60 0RF insulin glargine [Lantus Solostar U-100 Insulin] 100 unit/mL (3 mL) insulin pen 28 unit subcut QPM Qty: 15 0RF Follow-up/Referrals: UNKNOWN,DOCTOR [Non-Staff] - Time of Disposition: 17:19
--- OUTSIDE RECORDS SUMMARY | 2024-12-26 13:40 | XMS_ITS | Encounter Summary ---
Author Organization [facility] Address [address] [place] [id number] Care Team Providers Care Plugging Machine Operator Name Role Phone Jed Gale MD Primary Care Provider [phone] Alethea Roberto Primary Care Provider Alethea Roberto Unavailable [phone] Alethea Roberto Primary Care Provider [phone] Yvette Cunningham MD Primary Care Provider [phone] Encounter Details Date Type Department Care Team (Late st Contact Info) Description 11/08/2018 Abstract SFL CONVERSION [address] [place] [address] , Generic Conversion, Social History Tobacco Use Types Packs/Day Years Used Date Smoking Tobacco: Never Assessed Comments Unknown Sex and Gender Information Value Date Recorded Sex Assigned at Female 06/16/2024 3:02 PM [employer] Legal Sex Female 10:13 AM CDT Gender Identity Not on file Sexual Orientation Not on file documented as of this encounter Plan of Treatment Not on file documented as of this encounter Visit Diagnoses Not on filedocumented in this encounter Additional Health Concerns Infection Onset Date Last Indicated Resolved Time COVID-19 Rule Out 05/06/2020 05/06/2020 05/06/2020 2:48 PM [facility] COVID-19 Rule Out 10/29/2020 10/29/2020 10/29/2020 7:37 PM CDT COVID-19 Rule Out 02/28/2022 02/28/2022 02/28/2022 10:20 AM CDT COVID-19 Rule Out 04/10/2024 04/10/2024 04/10/2024 12:09 PM [facility] [employer] COVID-19 Rule Out 10/02/2024 10/02/2024 10/02/2024 1:17 PM CDT documented as of this encounter Care Teams Plugging Machine Operator Relationship Specialty Start Date End Date Jed Gale MD [address] [place] [address] PCP - General FAMILY PRACTICE 03/02/19 05/05/20 [place] [address] PCP - General NURSE PRACTITIONER 05/06/20 03/08/21 [place] [address] PCP - General NURSE PRACTITIONER 02/18/23 07/07/24 Yvette Cunningham MD [address] [place] [address] PCP - General FAMILY PRACTICE 07/08/24 Alethea Roberto APNP [address] [place] [address] Nurse Practitioner NURSE PRACTITIONER 03/09/21 documented as of this encounter
--- OUTSIDE RECORDS SUMMARY | 2024-12-26 13:41 | XMS_ITS | Clinical Summary ---
Author Organization [facility] Address [address] [place] [address] Care Team Providers Care Grapple Yarder Operator Name Role Phone Yvette Cunningham MD Primary Care Provider [phone] Source Comments [facility],non-owned Affiliates and Associated Physician Practices is amultiple site organization consisting of ambulatory clinics and hospital sitesin [place], [place], [place] and [place]. This disclosure is being madepursuant to the Care Everywhere program and may not contain all information available regarding this patient. Last updated 18.[facility] Allergies Active Allergy Reactions Criticality Noted Date [...] daily Active Calcium Carbonate-Vit D-Min (CALCIUM 1200) 3561-0428 MG-UNIT CHEW Take 1 tablet by mouth [...] [facility] - Cardiology [address] [id number] Unique Valdivia RN Loop Recorder 11/11/2024 10:00 AM CDT Office Visit [facility] - Neurology [address] [place] [id number] Eleni Gtz PA-C Cerebrovascular accident (CVA), unspecified mechanism (HCC) (Primary Dx); Primary hypertension; Type 2 diabetes, controlled, with neuropathy (HCC); Moderate episode of recurrent major depressive disorder (HCC); Hallucinations; Cognitive dysfunction 11/11/2024 Travel 10/28/2024 Telephone [facility] - Cardiology [id number] [place] [phone] Provider, No Pcp Question; Loop Recorder from [...] on file Legal Sex Female 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 Gender Identity Not on file Sexual Orientation Not on file Last Filed Vital Signs Vital Sign Reading Time Taken Comments Blood Pressure 116/74 11/11/2024 9:37 AM CDT Pulse 96 11/11/2024 9:37 AM CDT Temperature 36.6 C (97.8 F) 04/18/2021 12:58 PM BUILD AUTOMATION ENGINEER Respiratory Rate 14 11/11/2024 9:37 AM CDT Oxygen Saturation 95% 04/18/2021 3:02 PM BUILD AUTOMATION ENGINEER Inhaled Oxygen Concentration - - Weight 77.6 kg (171 lb) 11/11/2024 9:37 AM CDT Height 154.9 cm (5' 1) 11/22/2021 9:51 AM CDT Body Mass Index 32.31 11/22/2021 9:51 AM CDT Plan of Treatment Upcoming Encounters Date Type Department Care Team (Late st Contact Info) Description 12/31/2024 1:00 AM CDT Clinical Support [facility] - Cardiology [address] [facility], [address] [address] 02/04/2025 1:00 AM CDT Clinical Support [facility]iology [address] [place] [address], [address] [address] Health Maintenance Due Date Last Done Comments [...] this topic Medical Devices Implanted Type Area Shredder Picker Device Identifier Shelf Expiration Date Model / Serial / Lot Sys Crd Mntr Rvl Linq [employer] Ins - [id number] Implanted:Qty : 1 on 04/18/2021 by Maico De La Cruz MD at [facility] Loop Recorder Left: Chest Wall [employer] 01/14/2022 LINQSYS DISCONTINUED / [id number] / Procedures Procedure Name Priority Date/Time Associated Diagnosis Comments BASIC METABOLIC PANEL (CALCIUM TOTAL) Routine 04/18/2021 3:51 AM BUILD AUTOMATION ENGINEER HEMOGLOBIN A1C Add on 04/16/2021 9:35 AM BUILD AUTOMATION ENGINEER from Last 3 Months or Most Recently Relevant to Health Maintenance Results * (ABNORMAL) BASIC METABOLIC PANEL (CALCIUM TOTAL) (04/18/2021 3:51 AM BUILD AUTOMATION ENGINEER) BUN 7 7 - 26 mg/dL 04/18/2021 5:15 AM [facility] Creatinine 0.80 0.56 - 0.96 mg/dL 04/18/2021 5:15 AM [facility] Sodium 141 136 - 145 mmol/L 04/18/2021 5:15 AM [facility] Potassium 3.2(L) 3.5 - 4.5 mmol/L 04/18/2021 5:15 AM [facility] Chloride 105 98 - 107 mmol/L 04/18/2021 5:15 AM [facility] CO2 21(L) 22 - 29 mmol/L 04/18/2021 5:15 AM [facility] Glucose 185(H) 70 - 115 mg/dL 04/18/2021 5:15 AM [facility] Calcium 9.7 8.4 - 10.2 mg/dL 04/18/2021 5:15 AM [facility] Anion Gap 18 8 - 18 04/18/2021 5:15 AM [facility] BUN/Creatinine Ratio 9 7 - 23 04/18/2021 5:15 AM [facility] Osmolality Calculated 295 270 - 300 mOsm/kg 04/18/2021 5:15 AM [facility] eGFR by CKD-EPI 81(L) >=90 mL/min/1.7 3 m2 04/18/2021 5:15 AM [facility] Blood BLOOD SPECIMEN / Unknown Lab Venipuncture / Unknown 04/18/2021 3:51 AM BUILD AUTOMATION ENGINEER 04/18/2021 4:52 AM [facility] us Aaron Hauser MD LAB - CHEMISTRY ORDERABLES Final Result [facility] [address] [place] [address], [facility] [phone] * (ABNORMAL) HEMOGLOBIN A1C (04/16/2021 9:35 AM [facility]) Hemoglobin A1c 7.9(H) 4.4 - 6.3 % 04/16/2021 11:10 AM [facility] Estimated Average Glucose 180 mg/dL 04/16/2021 11:10 AM [facility] Comment: HbA1c Interpretation: Treatment target values recommended by ADA and other clinical organizations should be used to evaluate metabolic control in patients. Treatment Target Values: Normal : < 5.7% Pre-diabetes: 5.7-6.4% Diabetes: Equal to or greater than 6.5% Reference: [place] [employer] Standards of Care in Diabetes -2014 In patients 70 years and older consider HbA1c target range of 7.0-7.5% Reference: Diabetes Mellitus in Older People: Position Statement on behalf of the International Association of Gerontology and Geriatrics (IAGG), the Diabetes Working Green Party for Older People (EDWPOP), and the International Task Force of Experts in Diabetes. Akash Saavedra et al. J [place] [employer]. 2012 Test results diagnostic of diabetes should be repeated for confirmation. The Sebia Capillary 2 assay for the measurement of HbA1c is a National Glycohemoglobin Standardization Program (NGSP)certified method. Blood BLOOD SPECIMEN / Unknown Venipuncture / Unknown 04/16/2021 9:35 AM BUILD AUTOMATION ENGINEER 04/16/2021 9:40 AM BUILD AUTOMATION ENGINEER us Aaron Hauser MD LAB - CHEMISTRY ORDERABLES Final Result [address] [address], [facility] [phone] from Last 3 Months or Most Recently Relevant to Health Maintenance Insurance ANTH Advance Directives * Full Code (Latest Code Status on File) Date Activated Date Inactivated Comments 04/16/2021 12:01 AM 04/18/2021 5:09 PM Care Teams Grapple Yarder Operator Relationship Specialty Start Date End Date Yvette Cunningham MD [address] [place] [id number] PCP - General Family Medicine 11/11/24
--- OUTSIDE RECORDS SUMMARY | 2024-12-26 13:41 | XMS_ITS | Encounter Summary ---
Author Organization [facility] Address [address] [place] [id number] Care Team Providers Care Legal Billing Specialist Name Role Phone Alethea Roberto Unavailable [phone] Alethea Roberto Primary Care Provider Yvette Cunningham MD Primary Care Provider [phone] Encounter Details Date Type Department Care Team (Late st Contact Info) Description 06/17/2024 XOG Message Enc [facility] [address], [facility] [address] [place] [address] Kasey Newberry PA [address] [place] [address] Visit Follow Up Social History Tobacco Use [...] from your doctor or pharmacy? Never 04/11/2024 [facility] Utilities Answer Date Recorded In the [...] week 04/11/2024 How often do you attend [facility] or alevism services? Patient declined 04/11/2024 Do you belong to any clubs o r organizations such as denominational groups, unions, fraternal or athletic groups, or [...] and heating? Not hard at all 04/11/2024 [facility] [place] [facility] - Occupational Stress [...] any time in the past 12 m [facility], were you homeless or living in a residential (including now)? 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
--- OUTSIDE RECORDS SUMMARY | 2024-12-26 13:41 | XMS_ITS | Clinical Summary ---
Author Organization [facility] Address [address] [place] [address] Care Team Providers Care Master Carpenter Name Role Phone Alethea Roberto Amando DUFFY Unavailable [phone] Yvette Cunningham MD Primary Care Provider [phone] Allergies Active Allergy Reactions Criticality Noted Date [...] Major depression with psychotic features (CMS/ [facility]) 11/03/2024 Failure to thrive in adult 11/02/2024 Spinal arachnoid cyst 08/07/2023 Cervical radiculopathy 01/25/2023 Lumbar radiculopathy 12/28/2022 HTN (hypertension) 08/30/2022 Mixed hyperlipidemia 02/18/2017 Type 2 diabetes mellitus wit h stage 3a chronic kidney disease, with long-term current use of insulin ([facility]) 02/18/2017 Resolved Problems Problem Noted Date Diagnosed Date Resolved Date Passive suicidal ideations 11/03/2024 0 11/05/2024 Left hip pain 09/22/2024 11/03/2024 Physical deconditioning 04/29/2024 06/0 08/2024 Acute hypoxic respiratory fa ilure ([facility]) 04/11/2024 11/03/2024 Back pain 08/17/2023 11/03/2024 HCAP (healthcare-associated pneumonia) 02/28/2022 11/03/2024 Pneumonia 02/28/2022 11/03/2024 Closed displaced fracture of shaft of fifth metacarpal bone of right hand, initial encounter 02/19/2022 11/03/2024 Acute ischemic stroke ([facility]) 04/14/2021 11/03/2024 Pain in right elbow 12/15/2020 11/04/19 25 Encounters Date Type Department Care Team Description 11/13/2024 12:00 PM CDT Home Care Visit [address] [place] [address] Zenaida Harper RN SN NON ADMIT SOC 11/12/2024 1:01 PM CDT - 11/12/2024 11:59 PM CDT Hospital Encounter [facility] [address] [place] [address] Yvette Cunningham MD Overberg, Rachel, PA Discharge Disposition: Home or Self Care (Routine Discharge) 11/12/2024 12:59 PM CDT - 11/12/2024 1:00 PM CDT Hospital Encounter [facility] [address] [place] [address] Yvette Cunningham MD Discharge Disposition: Home or Self Care (Routine Discharge) 11/12/2024 Orders Only [facility] [address] [place] [address] Eleni Gtz PA 11/12/2024 Travel 11/09/2024 11:30 AM CDT Home Care Visit [address] [place] [address] [place] [address] Zenaida Harper RN SN NON ADMIT SOC 11/02/2024 1:00 PM CDT - 11/05/2024 1:43 PM CDT Hospital Encounter [facility] [address] [place] [address] [place] [address] Beulah Parra MD Wheeler, Erin M, MD Fatigue; Altered Mental Status Discharge Disposition: Home or Self Care (Routine Discharge) 11/02/2024 Travel 10/08/2024 8:54 AM CDT - 10/08/2024 11:42 AM CDT Emergency [facility] [address] [place] [address] [place] [address] Mike Dunbar MD Back Pain Discharge Disposition: Home or Self Care (Routine Discharge) 10/08/2024 Travel 10/02/2024 11:52 AM CDT - 10/02/2024 4:00 PM CDT Emergency [facility] [address] [place] [address] [place] [address] Mike Dunbar MD Leg Pain Discharge Disposition: Home or Self Care (Routine Discharge) 10/02/2024 Travel 09/30/2024 9:11 AM CDT - 09/30/2024 11:59 PM CDT Hospital Encounter [facility] [address] [place] [address] Gilma Castle APNP Kovarik, Ryan A, [employer] Hip Pain Discharge Disposition: Home or Self Care (Routine Discharge) 09/30/2024 Travel 09/28/2024 9:37 AM CDT - 09/28/2024 11:59 PM CDT Hospital Encounter [facility] [address] [place] [address] Gilma Castle APNP Kovarik, Ryan A, [employer] Hip Pain Discharge Disposition: Home or Self [...] from your doctor or pharmacy? Never 04/11/2024 [facility] Utilities Answer Date Recorded In the past 12 months has th e [employer] gas, oil, or water Performable threatened to shut off services in your [...] How often do you attend chur or adventism services? Patient declined 04/11/2024 Do you belong to any clubs o r organizations such as mormonism groups, unions, fraternal or athletic groups, or [...] and heating? Not hard at all 11/02/2024 [facility] - Occupational [...] place to sleep or slept in a chcf (including now)? No 08/07/2023 Housing Stability Vital Sign Answer Don e Recorded In the last 12 months, was t here a time when you were not able to pay the mortgage or rent on time? No 11/02/2024 In the past 12 months, how m any times have you moved where you were living? 0 11/02/2024 At any time in the past 12 m [facility], were you homeless or living in a chcf (including now)? No 11/02/2024 Comments No Sex and Gender Information Value Date Recorded Sex Assigned at Female 06/16/2024 3:02 PM STOCK ANALYST Legal Sex Female 10:13 AM CDT [...] Recommended Domains Addressed Status Status Reason/Outcome Date/Time [facility] Crisis Services, Mental Health Education, Mental Health Evaluation, Mental Health Services Depression Recommended 12/20/2024 1:02 PM CDT Clinic, [facility] Pen[facility]iary Detoxification, Mental Health Hospital Treatment, Mental Health Residential Treatment, Safe Housing: Substance Use, Severe Mental Illness Senior Care, Short Term Detoxification, Sober Living Community, Substance Use Recovery Home Tobacco Use, Depression Recommended 12/20/2024 1:02 PM CDT [place] [place] [facility] Detoxification, Mental Health Hospital Treatment, Mental Health Residential Treatment, Safe Housing: Substance Use, Severe Mental Illness Senior Care, Short Term Detoxification, Sober Living Community, Substance Use Recovery Home Tobacco Use, Depression Recommended 12/20/2024 1:02 PM CDT [facility] Pen[facility]ent[facility] Detoxification, Mental Health Hospital Treatment, Mental Health Residential Treatment, Safe Housing: Substance Use, Severe Mental Illness Senior Care, Short Term Detoxification, Sober Living Community, Substance Use Recovery Home Tobacco Use, Depression Recommended 12/20/2024 1:02 PM CDT [facility] Mental Health Hospital Treatment, Mental Health Residential Treatment, Mental Health Services, Substance Use Services Tobacco Use, Depression Recommended 12/20/2024 1:02 PM CDT [facility] [employer] Detoxification, Mental Health Hospital Treatment, Mental Health Residential Treatment, Safe Housing: Substance Use, Severe Mental Illness Senior Care, Short Term Detoxification, Sober Living Community, Substance Use Recovery Home Tobacco Use, Depression Recommended 12/20/2024 1:02 PM CDT [facility] Mental [facility] Hospital Treatment Depression Recommended 12/20/2024 1:02 PM CDT [facility] Hospital Treatment Depression Recommended 12/20/2024 1:02 PM CDT [facility] Crisis Services, Mental Health Education, Mental Health Evaluation, Mental Health Hospital Treatment, Mental Health Services Depression Recommended 12/20/2024 1:02 PM CDT from Last 12 Months Medical Devices Implanted Type Area Cut In Station Operator Device Identifier Shelf Expiration Date Model / Serial / Lot Agent Hemostatic Surgiflo 8 Ml Kit - [id number] Implanted:Qty: 2 on 08/07/2023 by William Mello MD at [facility] Sealant N/A: Spine Thoracic [employer] 09/30/2024 [id number] / / [id number] Agent Hemostatic Surgiflo 8 Ml Kit - [id number] Implanted:Qty: 1 on 08/07/2023 by William Mello MD at [facility] Sealant N/A: Spine Thoracic [employer] 09/30/2024 2994 / / [id number] 1.7mm S Locking Plate T, Narrow 10 Holes Implanted:Qty: 1 on 02/21/2022 by Jamil Lyons MD at [facility] Right: Hand [employer] [id number] / / 1.7 X 11 Locking Screw Implanted:Qty: 2 on 02/21/2022 by Jamil Lyons MD at [facility] Right: Hand [employer] [id number] / / 1.7 X 9 Locking Screw Implanted:Qty: 1 on 02/21/2022 by Jamil Lyons MD at [facility] Right: Hand [employer] [id number] / / 1.7 X 7 Locking Screw Implanted:Qty: 2 on 02/21/2022 by Jamil Lyons MD at [facility] Right: Hand [employer] [id number] / / 1.7 X 6 Locking Screw Implanted:Qty: 1 on 02/21/2022 by Jamil Lyons MD at [facility] Right: Hand [employer] [id number] / / Variax 2 Non-Locking Screw 1.7mm X 7mm Implanted:Qty: 1 on 02/21/2022 by Jamil Lyons MD at [facility] Right: Hand [employer] [id number] / / [employer] 2 Non-Locking Screw 1.7mm X 8mm Implanted:Qty: 1 on 02/21/2022 by Jamil Lyons MD at [facility] Right: Hand [employer] [id number] / / Vistaseal Fibrin Sealant Implanted:Qty: 1 on 08/07/2023 by William Mello MD at [facility] N/A: Spine Thoracic [employer] [id number] 08/16/2023 [id number] / [id number] / [id number] Explanted Type Area Cut In Station Operator Device Identifier Shelf Expiration Date Model / Serial / Lot 1.4 X 27mm, Ao Twist Drill Explanted:Qty: 1 on 02/21/2022 by Jamil Lyons MD at [facility] Right: Hand [employer] [id number] / / Procedures Procedure Name Priority Date/Time [...] CDT HEMOGLOBIN, GLYCOSYLATED Routine 04/11/2024 11:15 PM STOCK ANALYST HEPATITIS PANEL,ACUTE STAT 08/17/2023 6:53 PM CDT MG SCREENING W SREE JUAN DIGI Routine 03/22/2023 10:16 AM CDT Visit for screening mammogram from Last 3 Months or Most Recently Relevant to Health Maintenance Results * VITAMIN B-12 (11/12/2024 1:58 PM CDT) VITAMIN B12 S/P/B 545 193 - 986 PG/ML 11/12/2024 8:07 PM CDT [facility] 11/12/2024 1:58 PM CDT us [facility] Final Result Performing Organization Address City/State/[facility] Co de Phone Number [facility] [address] [place] [address], [phone] * CT LUNG SCREENING (11/12/2024 1:33 PM [...] 6:14 AM Narrative 11/18/2024 6:15 AM CDT [address] [place] [address] Examination: CT LUNG SCREENING Exam time: 11/12/2024 [...] Procedure Note Shade Kumar MD - 11/18/[address] [place] [address] Examination: CT LUNG SCREENING Exam time: 11/12/2024 [...] - 99 MG/DL 11/05/2024 1:[address] [facility] 11/05/2024 11:4 8 AM CDT Yvette Cunningham MD POCT ORDERABLES - DEVICE Final Result [facility] [address] [place] [address], * (ABNORMAL) COMPREHENSIVE METABOLIC PANEL (11/05/2024 5:41 AM CDT) Only the most recent of5 resultswithin the time period is included. SODIUM S/P/B 141 136 - 145 MMOL/L 11/05/2024 6:[address] [facility] POTASSIUM S/P/B 3.3(L) 3.5 - 5.1 MMOL/L 11/05/2024 6:[address] [facility] CHLORIDE S/P/B 103 98 - 107 MMOL/L 11/05/2024 6:[address] [facility] CO2 28.1 21.0 - 32.0 MMOL/L 11/05/2024 6:[address] [facility] GLUCOSE 230(H) 70 - 99 MG/DL 11/05/2024 6:[address] [facility] Comment: FASTING GLUCOSE 100 TO 125 MG/DL IS CONSISTENT WITH IMPAIRED FASTING GLUCOSE. FASTING GLUCOSE >125 MG/DL IS CONSISTENT WITH DIABETES. RANDOM GLUCOSE >200 MG/DL WITH HYPERGLYCEMIC SYMPTOMS IS CONSISTENT WITH DIABETES. PER ADA GUIDELINES BUN 11 6 - 24 MG/DL 11/05/2024 6:[address] [facility] CREATININE S/P/B 0.95 0.55 - 1.02 MG/DL 11/05/2024 6:[address] [facility] CALCIUM S/P/B 9.3 8.4 - 10.5 MG/DL 11/05/2024 6:[address] [facility] BILIRUBIN TOTAL S/P/B 0.5 0.2 - 1.0 MG/DL 11/05/2024 6:07 AM [facility] Comment: THIS ASSAY IS NOT RECOMMENDED FOR PATIENTS UNDERGOING TREATMENT WITH ELTROMBOPAG DUE TO THE POTENTIAL FOR FALSELY ELEVATED RESULTS. ALKALINE PHOSPHATASE S/P/B 140(H) 50 - 130 U/L 11/05/2024 6:07 AM [facility] AST 11(L) 15 - 37 U/L 11/05/2024 6:07 AM [facility] ALT 15 14 - 59 U/L 11/05/2024 6:07 AM [facility] TOTAL PROTEIN S/P/B 6.7 6.4 - 8.2 G/DL 11/05/2024 6:07 AM [facility] ALBUMIN S/P/B 3.0(L) 3.4 - 5.0 G/DL 11/05/2024 6:07 AM [facility] ANION GAP 9.9 5.0 - 15.0 MMOL/L 11/05/2024 6:07 AM [facility] OSMOLALITY (CALC) 299 MOSM/KG 025 6:07 AM [facility] Comment:REFERENCE RANGE NOT ESTABLISHED GFR ESTIMATE 68(L) >89 ML/MIN/1. 73 M2 11/05/2024 6:07 AM [facility] GFR NOTES GFR REFERENCE S: 11/05/2024 6:07 AM [facility] Comment: THE ESTIMATED GFR IS [...] us Yvette Cunningham MD LABORATORY Final Result [facility] [address] [place] [address], * (ABNORMAL) CBC W/DIFF AUTOMATED (11/05/2024 5:41 AM CDT) Only the most recent of6 resultswithin the time period is included. WBC 10.63 4.00 - 10.80 x10'3/uL 11/05/2024 5:[address] [facility] RBC 4.71 4.10 - 5.40 x10'6/uL 11/05/2024 5:[address] [facility] HGB 12.0 12.0 - 16.0 G/DL 11/05/2024 5:[address] [facility] HCT 38.5 36.0 - 47.0 % 11/05/2024 5:[address] [facility] MCV 81.7 78.0 - 100.0 FL 11/05/2024 5:[address] [facility] MCH 25.5(L) 27.0 - 31.0 PG 11/05/2024 5:[address] [facility] MCHC 31.2(L) 33.0 - 36.0 G/DL 11/05/2024 5:[address] [facility] RDW 15.9(H) 11.5 - 14.5 % 11/05/2024 5:[address] [facility] PLT 356(H) 150 - 350 x10'3/uL 11/05/2024 5:[address] [facility] MPV 10.3 7.4 - 10.4 FL 11/05/2024 5:[address] [facility] CBC COMMENT NORMAL REFERENCE RANGE NOT ESTABLISHED FOR THE PROPORTIONAL LEUKOCYTE DIFFERENTIAL. 11/05/2024 5:[address] [facility] NEUTROPHILS % 45.5 % 11/05/2024 5:[address] [facility] LYMPHOCYTES % 35.0 % 11/05/2024 5:[address] [facility] MONOCYTES % 11.8 % 11/05/2024 5:[address] [facility] EOSINOPHILS % 5.9 % 11/05/2024 5:[address] [facility] BASOPHILS % 1.1 % 11/05/2024 5:[address] [facility] IMMATURE GRANS % 0.7 % 11/06/19 5:[address] [facility] NRBC % 0.0 % 11/05/2024 5:[address] [facility] ABS. NEUTROPHILS 4.84 1.60 - 8.30 x10'3/uL 11/05/2024 5:[address] [facility] ABS. LYMPHOCYTES 3.72 0.80 - 4.70 x10'3/uL 11/05/2024 5:[address] [facility] ABS. MONOCYTES 1.25 0.00 - 1.50 x10'3/uL 11/05/2024 5:[address] [facility] ABS. EOSINOPHILS 0.63(H) 0.00 - 0.40 x10'3/uL 11/05/2024 5:[address] [facility] ABS. BASOPHILS 0.12 0.00 - 0.20 x10'3/uL 11/05/2024 5:[address] [facility] ABS. IMMATURE GRANULOCYTES 0.07(H) 0.00 - 0.03 x10'3/uL 11/05/2024 5:[address] [facility] ABS. NUCLEATED RBC'S 0.00 0.00 - 0.01 x10'3/uL 11/05/2024 5:[address] [facility] 11/05/2024 5:41 AM CDT Yvette Cunningham MD LABORATORY Final Result [facility] [address] [place] [address], * MRI LUMB SPINE WO CON (11/03/2024 10:00 AM CDT) Anatomical Region Laterality Modality Spine Magnetic Resonan ce 11/03/2024 10:0 0 AM CDT Impressions 11/03/2024 10:03 AM CDT IMPRESSION: Mild to moderate multilevel lumbar spondylosis greatest at L4-5, as described above. Ordered By: BEULAH PARRA Interpreted By: Nate Aldridge MD, 11/03/2024 10:00 AM Narrative 11/03/2024 10:03 AM CDT [facility] [address] [place] [address] Examination: MRI LUMB SPINE WO CON, 11/03/2024 [...] Procedure Note Nate Aldridge MD - 11/03/2024 [facility] [address] [place] [address] Examination: MRI LUMB SPINE WO ABIMBOLA, 11/03/2024 [...] 136 - 145 MMOL/L 11/03/2024 6:17 AM [facility] POTASSIUM S/P/B 4.1 3.5 - 5.1 MMOL/L 11/03/2024 6:17 AM [facility] CHLORIDE S/P/B 105 98 - 107 MMOL/L 11/03/2024 6:17 AM [facility] CO2 27.9 21.0 - 32.0 MMOL/L 11/03/2024 6:17 AM [facility] GLUCOSE 211(H) 70 - 99 MG/DL 11/03/2024 6:17 AM [facility] Comment: FASTING GLUCOSE 100 TO 125 MG/DL IS CONSISTENT WITH IMPAIRED FASTING GLUCOSE. FASTING GLUCOSE >125 MG/DL IS CONSISTENT WITH DIABETES. RANDOM GLUCOSE >200 MG/DL WITH HYPERGLYCEMIC SYMPTOMS IS CONSISTENT WITH DIABETES. PER ADA GUIDELINES BUN 7 6 - 24 MG/DL 11/03/2024 6:17 AM [facility] CREATININE S/P/B 0.96 0.55 - 1.02 MG/DL 11/03/2024 6:17 AM [facility] CALCIUM S/P/B 9.3 8.4 - 10.5 MG/DL 11/03/2024 6:17 AM [facility] ANION GAP 7.1 5.0 - 15.0 MMOL/L 11/03/2024 6:17 AM [facility] OSMOLALITY (CALC) 294 MOSM/KG 025 6:17 AM [facility] Comment:REFERENCE RANGE NOT ESTABLISHED GFR ESTIMATE 67(L) >89 ML/MIN/1. 73 M2 11/03/2024 6:17 AM [facility] GFR NOTES GFR REFERENCE S: 11/03/2024 6:17 AM [facility] Comment: THE ESTIMATED GFR IS [...] Beulah Parra MD LABORATORY Final Resul t [facility] [address] [place] [address], * (ABNORMAL) URINALYSIS (11/02/2024 3:46 PM CDT) Only the most recent of3 resultswithin the time period is included. COLOR (U) YELLOW 11/02/2024 4:[address] [facility] TRANSPARENCY CLEAR 11/02/2024 4:[address] [facility] SPECIFIC GRAVITY (U) 1.030(H) 1.000 - 1.025 11/02/2024 4:[address] [facility] Comment:EQUAL TO OR GREATER THAN U PH 5.5 5.0 - 8.0 11/02/2024 4:[address] [facility] LEUKOCYTES (U) NEGATIVE NEGATIVE 11/02/2024 4:[address] [facility] NITRITES NEGATIVE NEGATIVE 11/02/2024 4:[address] [facility] PROTEIN RANDOM (U) 2+(A) NEGATIVE 11/02/2024 4:[address] [facility] GLUCOSE (U) TRACE(A) NEGATIVE 11/02/2024 4:[address] [facility] KETONES MG/DL (U) 2+(A) NEGATIVE 11/02/2024 4:[address] [facility] UROBILINOGEN 0.2 <1.0 EU/DL 11/02/2024 4:[address] [facility] BLOOD (U) NEGATIVE NEGATIVE 11/02/2024 4:[address] [facility] WBC/HPF OCCASIONAL(A ) 0 - 5 /HPF 11/02/2024 4:[address] [facility] RBC/HPF NONE SEEN(A) 0 - 5 /HPF 11/02/2024 4:[address] [facility] EPI/LPF 1+ /LPF 11/02/2024 4:[address] [facility] BACTERIA (U) TRACE /HPF 11/02/2024 4:[address] [facility] BILIRUBIN CONF ICTO (U) NEGATIVE NEGATIVE 11/02/2024 4:[address] [facility] URINE SPECIMEN OBTAINED BY CLEAN CATCH PROCEDURE / Unknown 11/02/2024 3:46 PM CDT Beulah Parra MD URINE ORDERABLES Final Resu lt [facility] [address] [place] [address], [place] [phone] * CULTURE URINE (11/02/2024 3:46 PM CDT) Only the most recent of2 resultswithin the time period is included. SPEC DESCRIPTION URINE CLEAN CATCH 11/02/2024 3:[address] [facility] SPECIAL REQUESTS NO SPECIAL REQUEST 11/02/2024 3:[address] [facility] CULTURE RESULT FEW CONTAMINANTS 09/2024 6:36 AM CDT [facility] URINE SPECIMEN OBTAINED BY CLEAN CATCH PROCEDURE / Unknown 11/02/2024 3:46 PM CDT 11/02/2024 6:43 PM CDT Beulah Parra MD MICROBIOLOGY - GENERAL ORDE [facility] Final Result Performing Organization Address City/[facility]/ZIP Co de Phone Number [facility] [address] [place] [address], [place] [phone] [facility] [address] [place] [address], * XR CHEST PORTABLE (11/02/2024 3:00 PM CDT) Anatomical Region Laterality Modality Chest Radiographic Keshia ging 11/02/2024 3:15 PM CDT Impressions 11/02/2024 3:15 PM CDT IMPRESSION: No radiographic evidence of active chest disease. Ordered By: BEULAH PARRA Interpreted By: Escobar Hernandez MD, 11/02/2024 3:15 PM Narrative 11/02/2024 3:15 PM CDT [address] [place] [address] Examination: XR CHEST PORTABLE Exam time: 11/02/2024 [...] Procedure Note Escobar Hernandez MD - 11/02/[address] [place] [address] Examination: XR CHEST PORTABLE Exam time: 11/02/2024 [...] SPEC DESCRIPTION BLOOD 11/02/2024 1:[address] [facility] SPECIAL REQUESTS NO SPECIAL REQUEST 11/02/2024 1:[address] [facility] CULTURE RESULT NO GROWTH 5 DAYS 11/07/2024 7:53 PM CDT [facility] BLOOD SPECIMEN OBTAINED FOR BLOOD CULTURE / Unknown 11/02/2024 2:24 PM CDT 11/02/2024 2:25 PM CDT Beulah Parra MD MICROBIOLOGY - GENERAL ORDE [facility] Final Result [facility] [address] [place] [address], [phone] [facility] [address] [place] [address], * (ABNORMAL) Blood gas, venous (11/02/2024 2:16 PM CDT) PH VENOUS 7.31(L) 7.32 - 7.43 11/02/2024 2:[address] [facility] PCO2 VENOUS 58.0 MMHG 11/02/2024 2:[address] [facility] Comment:NO REFERENCE RANGE H BEEN ESTABLISHED PO2 VENOUS <30.0 MM HG 11/02/2024 2:[address] [facility] Comment:NO REFERENCE RANGE H BEEN ESTABLISHED TOTAL CO2 VENOUS 31.0(H) 22.0 - 26.0 MMOL/L 11/02/2024 2:[address] [facility] BASE EXCESS VENOUS 1.6 MMOL/L 11/02/2024 2:[address] [facility] Comment:NO REFERENCE RANGE H BEEN ESTABLISHED O2 SAT VENOUS NOT CALCULATED % 025 2:[address] [facility] Comment:NO REFERENCE RANGE H BEEN ESTABLISHED BICARB VENOUS 29.2(H) 22.0 - 29.0 MMOL/L 11/02/2024 2:[address] [facility] O2 ADMIN VENOUS 2L 2:[address] [facility] 11/02/2024 2:16 PM CDT us Beulah Parra MD LABORATORY Final Resul t [facility] [place] [address], * CT HEAD WO CON (11/02/2024 1:59 PM CDT) Only the most recent of2 resultswithin the time period is included. Anatomical Region Laterality Modality Head Computed Tomogra phy 11/02/2024 2:11 PM CDT Impressions 11/02/2024 2:13 PM CDT IMPRESSION: 1) No acute intracranial abnormality is demonstrated. Ordered By: BEULAH PARRA Interpreted By: Adolfo Saunders MD, 11/02/2024 2:11 PM Narrative 11/02/2024 2:13 PM CDT [address] [place] [address] Examination: CT HEAD WO CON Exam time: [...] Procedure Note Adolfo Saunders MD - 11/02/[address] [place] [address] Examination: CT HEAD WO CON Exam time: [...] PM CDT) 11/02/2024 1:[address] [facility] - 11/03/2024 5:11 AM CDT [address] [place] [address] Test Date: 2024-11-02 Pat Name: PRAVIN DIMITRY Department: 3 Room: 318 Gender: Female [employer]: : 1965 Requested By: BEULAH PARRA Order Number: [id number] Reading MD: Yang Blanco Measurements Intervals Collins Rate: 104 P: 30 DC: 132 QRS: 6 QRSD: 78 T: 39 QT: 352 QTc: 464 Interpretive Statements SINUS TACHYCARDIA MINIMAL VOLTAGE CRITERIA FOR LVH, CONSIDER NORMAL VARIANT NONSPECIFIC ST & T-WAVE ABNORMALITY ABNORMAL RHYTHM ECG Procedure Note Yang Blanco MD - 11/03/[address] [place] [address] Test Date: 2024-11-02 Pat Name: PRAVIN MORAES Department: 3 Room: 318 Gender: Female [employer]: : 1965 Requested By: BEULAH PARRA Order Number: [id number] Reading MD: Yang Blanco Measurements Intervals Collins Rate: 104 P: 30 DC: 132 QRS: 6 QRSD: 78 T: 39 QT: 352 QTc: 464 Interpretive Statements SINUS TACHYCARDIA MINIMAL VOLTAGE CRITERIA FOR LVH, CONSIDER NORMAL VARIANT NONSPECIFIC ST & T-WAVE ABNORMALITY ABNORMAL RHYTHM ECG us Beulah Parra MD ECG ORDERABLES Final Resul t [facility] * LACTIC ACID W REFLEX (SEPSIS) (11/02/2024 1:46 PM CDT) LACTIC ACID VENOUS 2.0 0.4 - 2.0 MMOL/L 11/02/2024 3:[address] [facility] 11/02/2024 1:46 PM CDT us Beulah Parra MD LABORATORY Final Resul t [facility] [address] [place] [address], * TSH W/REFLEX (11/02/2024 1:46 PM CDT) [facility] TSH 1.324 0.358 - 3.740 uIU/ML 11/02/2024 3:[address] [facility] Comment: FREE T4 NOT INDICATED ASSAY PERFORMED BY CHEMILUMINESCENT IMMUNOASSAY METHODOLOGY USING SIEMENS DIMENSION REAGENT. PATIENT RESULTS DETERMINED BY ASSAYS FROM DIFFERENT MANUFACTURERS AND/OR BY DIFFERENT METHODS MAY NOT BE COMPARABLE. 11/02/2024 1:46 PM CDT us Beulah Parra MD LABORATORY Final Resul t Performing Organization Address City/[facility]/ZIP Co de Phone Number [facility] [address] [place] [address], * PRO-BRAIN NATRIURETIC PEPTIDE (11/02/2024 1:46 PM CDT) [facility] PRO-B TYPE NATRIURETIC PEPTIDE 92 <125 PG/ML 11/02/2024 3:[address] [facility] Comment: CUT POINTS ESTABLISHED BY [...] LABORATORY Final Resul t Performing Organization Address City/[facility]/ZIP Co de Phone Number [facility] [address] [place] [address], * TROPONIN, QUANT (11/02/2024 1:46 PM CDT) [facility] TROPONIN I HIGH SENSITIVITY 10 0 - 51 ng/L 11/02/2024 3:[address] [facility] 11/02/2024 1:46 PM CDT us Beulah Parra MD LABORATORY Final Resul t Performing Organization Address [facility] de Phone Number [facility] [address] [place] [address], * (ABNORMAL) AMMONIA (11/02/2024 1:46 PM CDT) AMMONIA <10(L) 11 - 32 UMOL/L 11/02/2024 2:[address] [facility] 11/02/2024 1:46 PM CDT us Beulah Parra MD LABORATORY Final Resul t Performing Organization Address [facility] de Phone Number [facility] [address] [place] [address], * (ABNORMAL) MAGNESIUM (11/02/2024 1:46 PM CDT) MAGNESIUM 1.7(L) 1.8 - 2.4 MG/DL 11/02/2024 3:[address] [facility] 11/02/2024 1:46 PM CDT Beulah Parra MD LABORATORY Final Resul t Performing Organization Address [facility] de Phone Number [facility] [address] [place] [address], * (ABNORMAL) LIPASE (11/02/2024 1:46 PM CDT) LIPASE 13(L) 16 - 77 UNITS/L 11/02/2024 3:[address] [facility] 11/02/2024 1:46 PM CDT us Beulah Parra MD LABORATORY Final Resul t Performing Organization Address City/[facility] Co de Phone Number [facility] [address] [place] [address], * (ABNORMAL) SALICYLATE (11/02/2024 1:46 PM CDT) Only the most recent of2 resultswithin the time period is included. SALICYLATES 1.8(L) 2.8 - 20.0 MG/DL 11/02/2024 3:[address] [facility] 11/02/2024 1:46 PM CDT us Beulah Parra MD LABORATORY Final Resul t Performing Organization Address [facility] Co de Phone Number [facility] [address] [place] [address], * ETHANOL (11/02/2024 1:46 PM CDT) Only the most recent of2 resultswithin the time period is included. ALCOHOL S/P/B <0.003 <0.003 G/DL 11/02/2024 3:[address] [facility] 11/02/2024 1:46 PM CDT us Beulah Parra MD LABORATORY Final Resul t Performing Organization Address City/[facility]/ZIP Co de Phone Number [facility] [address] [place] [address], [place] [phone] * CK (CPK) (11/02/2024 1:46 PM CDT) CPK 75 26 - 192 U/L 11/02/2024 3:[address] [facility] 11/02/2024 1:46 PM CDT us Beulah Parra MD LABORATORY Final Resul t Performing Organization Address [facility] de Phone Number [facility] [place] [address], * (ABNORMAL) ACETAMINOPHEN (11/02/2024 1:46 PM CDT) Only the most recent of2 resultswithin the time period is included. ACETAMINOPHEN S/P/B 2.5(L) 10.0 - 30.0 MCG/ML 11/02/2024 3:[address] [facility] 11/02/2024 1:46 PM CDT Beulah Parra MD LABORATORY Final Resul t Performing Organization Address [facility] de Phone Number [facility] [address] [place] [address], * THYROID STIM HORMONE, TSH (10/02/2024 12:42 PM CDT) TSH 1.144 0.358 - 3.740 uIU/ML 10/02/2024 1:[address] [facility] Comment: ASSAY PERFORMED BY CHEMILUMINESCENT IMMUNOASSAY METHODOLOGY USING SIEMENS DIMENSION REAGENT. PATIENT RESULTS DETERMINED BY ASSAYS FROM DIFFERENT MANUFACTURERS AND/OR BY DIFFERENT METHODS MAY NOT BE COMPARABLE. 10/02/2024 12:4 2 PM CDT Mike Dunbar MD LABORATORY Final Result Performing Organization Address [facility] Co de Phone Number [facility] [address] [place] [address], * CORONAVIRUS (COVID-19) ANTIGEN (10/02/2024 12:30 PM CDT) CORONAVIRUS ANTIGEN IA NEGATIVE NEGATIVE 10/02/2024 1:[address] [facility] Comment: NEGATIVE RESULTS DO NOT [...] SPECIMEN TYPE NASAL 10/02/2024 12:[address] [facility] NASAL NASAL STRUCTURE / Unknown 10/02/2024 12:30 PM CDT Mike Dunbar MD MICROBIOLOGY - GENERAL ORDERA BLES Final Result [facility] [address] [place] [address], * (ABNORMAL) DRUG SCREEN RAPID (10/02/2024 12:30 PM CDT) Pathologist [facility] CANNABINOIDS SCREEN (U) POSITIVE(A) NEGATIVE 10/02/2024 1:[address] [facility] PHENCYCLIDINE PCP (U) NEGATIVE NEGATIVE 10/02/2024 1:[address] [facility] COCAINE METABOLITES (U) NEGATIVE NEGATIVE 10/02/2024 1:[address] [facility] METHAMPHETAMINE SCREEN (U) NEGATIVE NEGATIVE 10/02/2024 1:[address] [facility] OPIATE SCREEN (U) NEGATIVE NEGATIVE 025 1:[address] [facility] AMPHETAMINE SCREEN (U) POSITIVE(A) NEGATIVE 10/02/2024 1:[address] [facility] BENZODIAZEPINES SCREEN (U) POSITIVE(A) NEGATIVE 10/02/2024 1:[address] [facility] TRICYCLIC ANTIDEPRESSANT SCREEN (U) POSITIVE(A) NEGATIVE 10/02/2024 1:[address] [facility] METHADONE (U) NEGATIVE NEGATIVE 10/02/2024 1:[address] [facility] BARBITURATES SCREEN (U) NEGATIVE NEGATIVE 10/02/2024 1:[address] [facility] OXYCODONE SCREEN (U) NEGATIVE NEGATIVE 10/02/2024 1:[address] [facility] URINE TOX COMMENT THIS TEST METHODOLOGY IS DESIGNED AND OFFERED A RAPID TURNAROUND, QUALITATIVE SCREENING PROCEDURE TO AID IN THE IMMEDIATE MEDICAL ASSESSMENT OF PATIENTS SUSPECTED OF SUBSTANCE ABUSE. 10/02/2024 12:[address] [facility] Comment: CLINICAL CONSIDERATION AND PROFESSIONAL JUDGMENT MUST BE APPLIED TO ANY DRUG OF ABUSE TEST RESULT, BOTH POSITIVE AND NEGATIVE. CONFIRMATORY QUANTITATIVE RESULTS ARE AVAILABLE THROUGH OUR [facility]. URINE SPECIMEN / Unknown 10/02/2024 12:30 PM CDT Mike Dunbar MD URINE ORDERABLES Final Result Performing Organization Address City/[facility]/ZIP Co de Phone Number [facility] [address] [place] [address], * (ABNORMAL) HEMOGLOBIN, GLYCOSYLATED (04/11/2024 11:15 PM STOCK ANALYST) HGB A1C 7.0(H) <5.7 % 04/12/2024 12:08 AM STOCK ANALYST [facility] ESTIMATED AVG GLUCOSE 154(H) 74 - 114 MG/DL 04/12/2024 12:08 AM STOCK ANALYST [facility] 04/11/2024 11:1 5 PM STOCK ANALYST Maris Cardenas MD LABORATORY Final Result Performing Organization Address City/[facility]/ZIP Co de Phone Number [facility] [address] [place] [address], [id number] * HEPATITIS PANEL,ACUTE (08/17/2023 6:53 PM CDT) HEPATITIS B SURFACE AG NON-REACT MYCHAL NON-REACT MYCHAL 08/17/2023 8:17 PM CDT [facility] Comment:HBsAg NOT DETECTED. HEP B CORE IGM NON-REACT MYCHAL NON-REACT MYCHAL 08/17/2023 8:17 PM CDT [facility] Comment: IgM ANTI HBc NOT DETECTED. DOES NOT EXCLUDE THE POSSIBILITY OF EXPOSURE TO OR INFECTION WITH HBV. NO RETEST REQUIRED. HIGH DOSES OF BIOTIN MAY INTERFERE WITH THIS TEST RESULT. CORRELATION TO CLINICAL HISTORY AND PRESENTATION RECOMMENDED. HAV IGM NON-REACT MYCHAL NON-REACT MYCHAL 08/17/2023 8:17 PM CDT [facility] Comment: IgM ANTI HAV NOT DETECTED. DOES NOT EXCLUDE THE POSSIBILITY OF EXPOSURE TO OR INFECTION WITH HAV. LEVELS OF IgM ANTI HAV MAY BE BELOW THE CUTOFF IN EARLY INFECTION. HEPATITIS C AB NON-REACT MYCHAL NON-REACT MYCHAL 08/17/2023 8:17 PM CDT [facility] Comment: ANTIBODIES TO HCV NOT DETECTED. DOES NOT EXCLUDE THE POSSIBILITY OF EXPOSURE TO HCV. 08/17/2023 6:53 PM CDT us Wil Alexander NP LABORATORY Final Resul t [facility] [address] [place] [phone], [id number] * MG SCREENING W SREE JUAN DIGI [...] Ordered By: ALETHEA ROBERTO Interpreted By: Pk Taedo MD, 03/22/2023 10:57 AM us Alethea DUFFY MAMMO Final Resul t from Last 3 Months or Most Recently Relevant to Health Maintenance Insurance [facility] Advance Directives * Full Code (Latest [...] 1:05 AM 04/28/2024 3:59 PM Care Teams Master Carpenter Relationship Specialty Start Date End Date Yvette Cunningham MD [employer] [place] [address] PCP - General FAMILY PRACTICE 07/08/24 Alethea Roberto APNP [address] [place] [address] BRIDGET RICHARD [address] Nurse Practitioner NURSE PRACTITIONER 03/09/21
--- OUTSIDE RECORDS SUMMARY | 2024-12-26 13:41 | XMS_ITS | Encounter Summary ---
Author Organization [facility] Address [address] [place] [address] Care Team Providers Care Finisher Hot Strip Name Role Phone Alethea Roberto Unavailable [phone] Alethea Roberto Primary Care Provider Yvette Cunningham MD Primary Care Provider [phone] Encounter Details Date Type Department Care Team (Late st Contact Info) Description 11/29/2021 [place] Message [facility] Patient Accounts [address] [place] [address] [facility] Provider Payment Plan - past due Social [...] Sex Assigned at Female 06/16/2024 3:02 PM CHURCH HISTORY PROFESSOR Legal Sex Female 10:13 AM CDT Gender [...] Rule Out 04/10/2024 04/10/2024 04/10/2024 12:09 PM CHURCH HISTORY PROFESSOR COVID-19 Rule Out 10/02/2024 10/02/2024 10/02/2024 1:17 PM CDT documented as of this encounter Care Teams Finisher Hot Strip Relationship Specialty Start Date End Date Alethea Roberto APNP [address] [place] [address] PCP - General NURSE PRACTITIONER 02/18/23 07/07/24 Yvette Cunningham MD [address] [place] [address] PCP - General FAMILY PRACTICE 07/08/24 Alethea Roberto APNP [address] [place] [address] Nurse Practitioner NURSE PRACTITIONER 03/09/21 documented as of this encounter
--- OUTSIDE RECORDS SUMMARY | 2024-12-26 13:41 | XMS_ITS | Referral Summary ---
Author Organization [facility] Address [address] [place] [address] Care Team Providers Care Real Estate Financial Analyst Name Role Phone Alethea Roberto ERNESTO Primary Care Provider Encounters Date Type Department Care Team Description 12/22/2024 Orders Only [facility] Orthopaedic Surgery [address] [place] [address] Advanced Medicine [address]th [place] [address] [place] [address] Walter Patel MD Low back pain with left-sided sciatica, unspecified back pain laterality, unspecified chronicity (Primary Dx); Spinal stenosis, unspecified spinal region; Cyst of lumbar facet joint 12/22/2024 7:15 AM CDT - 12/22/2024 11:59 PM CDT Hospital Encounter [facility] [address] [place] [address] Low back pain, unspecified back pain laterality, unspecified chronicity, unspecified whether sciatica present Discharge Disposition: Discharge to home or self care 12/22/2024 7:50 AM CDT Office Visit [facility] Orth[facility] [address] [place] [address] Advanced Medicine 6th [place] [address] [place] [address] Walter Patel MD Low back pain, unspecified back pain laterality, unspecified chronicity, unspecified whether sciatica present (Primary Dx); Spinal stenosis, unspecified spinal region; Low back pain with left-sided sciatica, unspecified back pain laterality, unspecified chronicity 12/09/2024 Telephone [facility] Orthopaedic Surgery [address] [place] [address] Goodwin Appointment Questions 12/09/2024 10:21 AM CDT - 12/09/2024 11:59 PM CDT Hospital Encounter [facility] ([facility]) [address] [place] [address] Discharge Disposition: Discharge to home or self care 12/09/2024 10:21 AM CDT - 12/09/2024 11:59 PM CDT Hospital Encounter [facility] ([facility]) [address] [place] [address] Discharge Disposition: Discharge to home or self care 12/09/2024 10:20 AM CDT - 12/09/2024 11:59 PM CDT Hospital Encounter [facility] ([facility]) [address] [place] [address] Discharge Disposition: Discharge to home or self care 12/09/2024 10:19 AM CDT - 12/09/2024 11:59 PM CDT Hospital Encounter [facility] ([facility]) [address] [place] [address] Discharge Disposition: Discharge to home or self care 12/09/2024 10:19 AM CDT - 12/09/2024 11:59 PM CDT Hospital Encounter [facility] ([facility]) [address] [place] [address] Discharge Disposition: Discharge to home or self [...] 05/11/2021 Assessment & Plan (05/01/2023 9:38 AM HANDSTITCHING MACHINE ARMHOLE FELLER): This is a chronic condition which is [...] a recent stroke. 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 No changes made to insulin pump. Assessment & Plan (06/28/2021 2:03 PM HANDSTITCHING MACHINE ARMHOLE FELLER): This is a chronic condition which is [...] pump. Assessment & Plan (05/11/2021 1:59 PM HANDSTITCHING MACHINE ARMHOLE FELLER): This is a chronic condition which is [...] 02/18/2017 Assessment & Plan (05/01/2023 9:38 AM HANDSTITCHING MACHINE ARMHOLE FELLER): This is a chronic condition which is [...] prescribed. Assessment & Plan (06/28/2021 2:03 PM HANDSTITCHING MACHINE ARMHOLE FELLER): This is a chronic condition which is at goal. Goal is less than 70. Personally reviewed lipid panel. [id number] on crestor. Encouraged to eat healthy, include fresh fruits and vegetables daily and avoid eating fried foods more than once per week. Encouraged to take medications as prescribed. Assessment & Plan (05/11/2021 1:12 PM HANDSTITCHING MACHINE ARMHOLE FELLER): This is a chronic condition which is [...] 02/18/2017 Assessment & Plan (05/01/2023 9:35 AM HANDSTITCHING MACHINE ARMHOLE FELLER): This is a chronic condition which is [...] eye exam. last dilated eye exam was [facility] in [place] Monofilament foot exam completed. protective senses intact [...] worsening and not at goal. Personally reviewed [id number] to 9% not at goal less than [...] which is not at goal. Personally reviewed [id number] to 9% not at goal less than [...] CVA Assessment & Plan (06/28/2021 2:00 PM HANDSTITCHING MACHINE ARMHOLE FELLER): This is a chronic condition which is [...] CVA Assessment & Plan (05/11/2021 1:09 PM HANDSTITCHING MACHINE ARMHOLE FELLER): This is a chronic condition which is [...] scheduled Assessment & Plan (06/28/2021 2:04 PM HANDSTITCHING MACHINE ARMHOLE FELLER): Improving. Continue to see therapy as scheduled Assessment & Plan (05/11/2021 1:10 PM HANDSTITCHING MACHINE ARMHOLE FELLER): This is a chronic condition. Seeing speech therapy. Give extra time to allow her to get her words out Hypertension 02/18/2017 05/11/2021 Assessment & Plan (05/11/2021 1:11 PM HANDSTITCHING MACHINE ARMHOLE FELLER): This is a chronic condition which is [...] on file Legal Sex Female 4:58 PM HANDSTITCHING MACHINE ARMHOLE FELLER Gender Identity Not on file Sexual Orientation Not on file Last Filed Vital Signs Vital Sign Reading Time Taken Comments Blood Pressure 134/74 05/01/2023 8:59 AM HANDSTITCHING MACHINE ARMHOLE FELLER Pulse 68 12/07/2017 5:30 PM CDT Temperature [...] HEMOGLOBIN A1C Routine 05/01/2023 9 :11 AM HANDSTITCHING MACHINE ARMHOLE FELLER Type 2 diabetes mellitus with stage 3a [...] Lumbar vertebral body heights preserved. Procedure Note Caremlo Neil MD - 12/22/2024 EXAMINATION: XR SCOLIOSIS [...] only and have not been reviewed by [facility]. There will be no report generated by a [facility] Radiologist. Narrative [facility] - 12/09/2024 10:21 AM CDT EXAMINATION: Images For Reference Purposes Only Walter Patel MD IMG XR PROCEDURES Fi nal Result [facility] * Neuro CT Outside Reference (12/09/2024 10:21 AM CDT) Impressions [facility] - 12/09/2024 10:21 AM CDT These images are for Reference purposes only and have not been reviewed by [facility]. There will be no report generated by a [facility] Radiologist. Narrative [facility] - 12/09/2024 10:21 AM CDT EXAMINATION: Images For Reference Purposes Only Walter Patel MD IMG CT PROCEDURES Fi nal Result Performing Organization Address [facility] Co de Phone Number [facility] * Neuro MR Outside Reference (12/09/2024 10:20 AM CDT) Impressions [facility] - 12/09/2024 10:20 AM CDT These images are for Reference purposes only and have not been reviewed by [facility]. There will be no report generated by a [facility] Radiologist. Narrative [facility] - 12/09/2024 10:20 AM CDT EXAMINATION: Images For Reference Purposes Only Walter Patel MD IMG MRI PROCEDURES F inal Result Performing Organization Address [facility] de Phone Number [facility] * Neuro MR Outside Reference (12/09/2024 10:19 AM CDT) Impressions [facility] - 12/09/2024 10:19 AM CDT These images are for Reference purposes only and have not been reviewed by [facility]. There will be no report generated by a [facility] Radiologist. Narrative [facility] - 12/09/2024 10:19 AM CDT EXAMINATION: Images For Reference Purposes Only Walter Patel MD IMG MRI PROCEDURES F inal Result Performing Organization Address [facility] Co de Phone Number [facility] * Neuro MR Outside Reference (12/09/2024 10:19 AM CDT) Impressions [facility] - 12/09/2024 10:19 AM CDT These images are for Reference purposes only and have not been reviewed by [facility]. There will be no report generated by a [facility] Radiologist. Narrative [facility] - 12/09/2024 10:19 AM CDT EXAMINATION: Images For Reference Purposes Only Walter Patel MD IMG MRI PROCEDURES F inal Result Performing Organization Address [facility] Co de Phone Number [facility] * POCT hemoglobin A1c (05/01/2023 9:11 AM HANDSTITCHING MACHINE ARMHOLE FELLER) Pathologist [facility] Hemoglobin A1C, POC 6.5 % Blood 05/01/2023 9:11 AM HANDSTITCHING MACHINE ARMHOLE FELLER Harleen Butler NP POINT OF CARE TEST ORDERABLES F inal Result * Diabetic Eye Exam (03/26/2023) 03/26/2023 Result [facility] Historical Provider HEALTH MAINTENANCE Final Result * Albumin Creatinine Ratio, Urine (12/19/2022) Pathologist [facility] SCRIBED Creatinine, Urine 54.6 - - - [facility] SCRIBED Microalbumin 12.1 - - - [facility] SCRIBED Microalb/Creat Ratio 22 [facility] Urine 12/19/2022 Historical Provider LAB URINE ORDERABLES Gauri l Result Performing Organization Address [facility]/ZIP Co de Phone Number [facility] * Lipid [...] - - [facility] SCRIBED eGFR in NonAfrican [place] 51 - - - [facility] Blood 12/19/2022 Historical Provider LAB BLOOD ORDERABLES Gauri l Result [facility] from Last 3 Months or Most Recently Relevant to Health Maintenance Insurance [facility] [employer] [place] [employer] [place] Care Teams Real Estate Financial Analyst Relationship Specialty Start Date End Date [place] [address] PCP - General Family Medicine 05/01/23
--- OUTSIDE RECORDS SUMMARY | 2024-12-26 13:41 | XMS_ITS | Encounter Summary ---
Author Organization [facility] Address [address] [place] [address] Care Team Providers Care Learning And Development Associate Name Role Phone Alethea Roberto Unavailable [phone] Alethea Roberto Primary Care Provider [phone] Yvette Cunningham MD Primary Care Provider [phone] Encounter Details Date Type Department Care Team (Late st Contact Info) Description 02/19/2022 [place] [facility] Enc [facility] [address], [address] [place] [address] Ericka Acosta, [facility] [address] [place] [address] [place] [address] Visit Follow Up Social History Tobacco Use [...] Sex Assigned at Female 06/16/2024 3:02 PM HOSPICE BEREAVEMENT COORDINATOR Legal Sex Female 10:13 AM CDT [...] AM PABLOT Kylie Nuñez RN Active * [place] Suicide Severity Rating Scale (Screener/Recent Self-Report) Question [...] Rule Out 04/10/2024 04/10/2024 04/10/2024 12:09 PM HOSPICE BEREAVEMENT COORDINATOR COVID-19 Rule Out 10/02/2024 10/02/2024 10/02/2024 1:17 PM CDT documented as of this encounter Care Teams Learning And Development Associate Relationship Specialty Start Date End Date [place] [address] PCP - General NURSE PRACTITIONER 02/18/23 07/07/24 Yvette Cunningham MD [address] [place] [id number] PCP - General FAMILY PRACTICE 07/08/24 Alethea Roberto APNP [address] [place] [address] Nurse Practitioner NURSE PRACTITIONER 03/09/21 documented as of this encounter
--- OUTSIDE RECORDS SUMMARY | 2024-12-26 13:41 | XMS_ITS | Encounter Summary ---
Author Organization [facility] Address [address] [place] [address] Care Team Providers Care Cadet Deck Name Role Phone Alethea Roberto Primary Care Provider Alethea Roberto Unavailable [phone] Alethea Roberto Primary Care Provider Yvette Cunningham MD Primary Care Provider [phone] Encounter Details Date Type Department Care Team (Late st Contact Info) Description 12/13/2020 boarding passt Message Enc [facility] [address], [address] [address] Jamil Lyons MD [address] [place], [place] [id number] Visit Follow Up Social History Tobacco Use [...] Sex Assigned at Female 06/16/2024 3:02 PM CLINICAL EXERCISE SPECIALIST Legal Sex Female 10:13 AM CDT [...] Rule Out 04/10/2024 04/10/2024 04/10/2024 12:09 PM CLINICAL EXERCISE SPECIALIST COVID-19 Rule Out 10/02/2024 10/02/2024 10/02/2024 1:17 PM CDT documented as of this encounter Care Teams Cadet Deck Relationship Specialty Start Date End Date Alethea Roberto APNP [address] [place] [address] PCP - General NURSE PRACTITIONER 05/06/20 03/08/21 Alethea Roberto APNP [address] [place] [address] PCP - General NURSE PRACTITIONER 02/18/23 07/07/24 Yvette Cunningham MD [address] [place] [address] PCP - General FAMILY PRACTICE 07/08/24 Alethea Roberto APNP [address] [place] [address] Nurse Practitioner NURSE PRACTITIONER 03/09/21 documented as of this encounter
--- OUTSIDE RECORDS SUMMARY | 2024-12-26 13:41 | XMS_ITS | Clinical Summary ---
Author Organization [facility] Address [address] [place] [address] Care Team Providers Care Test Preparer Name Role Phone Pardeep Alethea ERNESTO Primary Care Provider [phone] Allergies Active Allergy Reactions Criticality Noted Date [...] 05/11/2021 Assessment & Plan (05/01/2023 9:38 AM AED TRAINER): This is a chronic condition which is [...] recent stroke. 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 No changes made to insulin pump. Assessment & Plan (06/28/2021 2:03 PM AED TRAINER): This is a chronic condition which is [...] pump. Assessment & Plan (05/11/2021 1:59 PM AED TRAINER): This is a chronic condition which is stable, controlled, uncontrolled with hyperglycemia, improving, but not at goal. Download reviewed. Type of insulin pump- ArtVenues 630G Pump settings : Basal 2units IC [...] 02/18/2017 Assessment & Plan (05/01/2023 9:38 AM AED TRAINER): This is a chronic condition which is [...] prescribed. Assessment & Plan (06/28/2021 2:03 PM AED TRAINER): This is a chronic condition which is at goal. Goal is less than 70. Personally reviewed lipid panel. ldl-43 on crestor. Encouraged to eat healthy, include fresh fruits and vegetables daily and avoid eating fried foods more than once per week. Encouraged to take medications as prescribed. Assessment & Plan (05/11/2021 1:12 PM AED TRAINER): This is a chronic condition which is [...] 02/18/2017 Assessment & Plan (05/01/2023 9:35 AM AED TRAINER): This is a chronic condition which is [...] eye exam. last dilated eye exam was [facility] in [place] Monofilament foot exam completed. protective senses intact [...] worsening and not at goal. Personally reviewed [id number] to 9% not at goal less than [...] which is not at goal. Personally reviewed [id number] to 9% not at goal less than [...] CVA Assessment & Plan (06/28/2021 2:00 PM AED TRAINER): This is a chronic condition which is [...] CVA Assessment & Plan (05/11/2021 1:09 PM AED TRAINER): This is a chronic condition which is [...] scheduled Assessment & Plan (06/28/2021 2:04 PM AED TRAINER): Improving. Continue to see therapy as scheduled Assessment & Plan (05/11/2021 1:10 PM AED TRAINER): This is a chronic condition. Seeing speech therapy. Give extra time to allow her to get her words out Hypertension 02/18/2017 05/11/2021 Assessment & Plan (05/11/2021 1:11 PM AED TRAINER): This is a chronic condition which is at goal Goal is <140/90 Personally reviewed labs. B/p - 128/66. Stable on lisinopril. Avoid caffeine, caffeine will raise blood pressure and excessive alcohol consumption. Monitor your weight and B/P. Encouraged to take medications as prescribed. Encounters Date Type Department Care Team Description 12/22/2024 7:50 AM CDT Office Visit [facility] Orthopaedic Surgery [address] [facility] 6th [place] [address] [place] [address] Walter Patel MD Low back pain, unspecified back pain laterality, unspecified chronicity, unspecified whether sciatica present (Primary Dx); Spinal stenosis, unspecified spinal region; Low back pain with left-sided sciatica, unspecified back pain laterality, unspecified chronicity 12/22/2024 7:15 AM CDT - 12/22/2024 11:59 PM CDT Hospital Encounter [facility] ([facility]) [address] [place] [id number] Low back pain, unspecified back pain laterality, unspecified chronicity, unspecified whether sciatica present Discharge Disposition: Discharge to home or self care 12/22/2024 Orders Only [facility] Orthopaedic Surgery [address] [facility] 6th [place] [address] [place] [address] Walter Patel MD Low back pain with left-sided sciatica, unspecified back pain laterality, unspecified chronicity (Primary Dx); Spinal stenosis, unspecified spinal region; Cyst of lumbar facet joint 12/09/2024 10:21 AM CDT - 12/09/2024 11:59 PM CDT Hospital Encounter [facility] ([facility]) [address] [place] [address] Discharge Disposition: Discharge to home or self care 12/09/2024 10:21 AM CDT - 12/09/2024 11:59 PM CDT Hospital Encounter [facility] ([facility]) [address] [place] [address] Discharge Disposition: Discharge to home or self care 12/09/2024 10:20 AM CDT - 12/09/2024 11:59 PM CDT Hospital Encounter [facility] ([facility]) [address] [place] [address] Discharge Disposition: Discharge to home or self care 12/09/2024 10:19 AM CDT - 12/09/2024 11:59 PM CDT Hospital Encounter [facility] ([facility]) [address] [place] [address] Discharge Disposition: Discharge to home or self care 12/09/2024 10:19 AM CDT - 12/09/2024 11:59 PM CDT Hospital Encounter [facility] ([facility]) [address] [place] [address] Discharge Disposition: Discharge to home or self care 12/09/2024 Telephone [facility] Orthopaedic Surgery [address] [place] [phone] Goodwin Appointment Questions [...] on file Legal Sex Female 4:58 PM AED TRAINER Gender Identity Not on file Sexual Orientation Not on file Obstetrics History Last Filed Vital Signs Vital Sign Reading Time Taken Comments Blood Pressure 134/74 05/01/2023 8:59 AM AED TRAINER Pulse 68 12/07/2017 5:30 PM CDT Temperature [...] HEMOGLOBIN A1C Routine 05/01/2023 9 :11 AM AED TRAINER Type 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, with long-term current use of insulin ([facility]) DIABETIC EYE EXAM Routine 03/26/2023 COMPREHENSIVE METABOLIC [...] Outside Reference (12/09/2024 10:21 AM CDT) Impressions [facility] - 12/09/2024 10:21 AM CDT These images are for Reference purposes only and have not been reviewed by [facility] Radiology. There will be no report generated by a [facility] Radiologist. Narrative [facility] - 12/09/2024 10:21 AM CDT EXAMINATION: Images For Reference Purposes Only Walter HERRERA XR PROCEDURES Fi nal Result [facility] * Neuro CT Outside Reference (12/09/2024 10:21 AM CDT) Impressions [facility] - 12/09/2024 10:21 AM CDT These images are for Reference purposes only and have not been reviewed by [facility] Radiology. There will be no report generated by a [facility] Radiologist. Narrative [facility] - 12/09/2024 10:21 AM CDT EXAMINATION: Images For Reference Purposes Only Walter Patel MD IMG CT PROCEDURES Fi nal Result Performing Organization Address [facility] de Phone Number [facility] * Neuro MR Outside Reference (12/09/2024 10:20 AM CDT) Impressions [facility] - 12/09/2024 10:20 AM CDT These images are for Reference purposes only and have not been reviewed by [facility] Radiology. There will be no report generated by a [facility] Radiologist. Narrative [facility] - 12/09/2024 10:20 AM CDT EXAMINATION: Images For Reference Purposes Only Walter Patel MD IMG MRI PROCEDURES F inal Result Performing Organization Address [facility] de Phone Number [facility] * Neuro MR Outside Reference (12/09/2024 10:19 AM CDT) Impressions [facility] - 12/09/2024 10:19 AM CDT These images are for Reference purposes only and have not been reviewed by [facility] Radiology. There will be no report generated by a [facility] Radiologist. Narrative [facility] - 12/09/2024 10:19 AM CDT EXAMINATION: Images For Reference Purposes Only Walter Patel MD IMG MRI PROCEDURES F inal Result Performing Organization Address [facility] de Phone Number [facility] * Neuro MR Outside Reference (12/09/2024 10:19 AM CDT) Impressions [facility] - 12/09/2024 10:19 AM CDT These images are for Reference purposes only and have not been reviewed by [facility] Radiology. There will be no report generated by a [facility] Radiologist. Narrative [facility] - 12/09/2024 10:19 AM CDT EXAMINATION: Images For Reference Purposes Only Walter Patel MD IMG MRI PROCEDURES F inal Result Performing Organization Address City/[facility]/ZIP Co de Phone Number [facility] * POCT hemoglobin A1c (05/01/2023 9:11 AM AED TRAINER) Hemoglobin A1C, POC 6.5 % Blood 05/01/2023 9:11 AM AED TRAINER Harleen Butler NP POINT OF CARE TEST [...] - - [facility] SCRIBED eGFR in NonAfrican Chilean 51 - - - [facility] Blood 12/19/2022 Historical Provider LAB BLOOD ORDERABLES Gauri l Result [facility] from Last 3 Months or Most Recently Relevant to Health Maintenance Insurance [facility] efw-[email or web address] [place] [employer] [place] Care Teams Test Preparer Relationship Specialty Start Date End Date Alethea Roberto NP [address] [place] [address] PCP - General Family Medicine 05/01/23
[2024-12-26] MEDS: LACTATED RINGERS 1,000 ML 999 ML IV CONT (13:59)
[2024-12-26] MEDS: PROCHLORPERAZINE EDISYLATE 10 MG/2 ML VIAL IV PUSH (13:59)
[2024-12-26 14:05] LABS: Hematocrit 38.6 % (35.0-49.0); Hemoglobin 12.0 g/dL (12.0-15.0); Immature Granulocyte Percent A 0.3 % (0.0-0.0); Lymphocytes Absolute Auto 3.78 K/mm3 (1.10-4.50); Mean Corpuscular HGB Conc 31.1 g/dL (32-36); Mean Corpuscular Hemoglobin 26.3 pg (27.0-31.0); Mean Corpuscular Volume 84.6 fL (78.0-102.0); Nucleated Red Blood Cells Absolute Auto 0.00 K/mm3 (0.00-0.00); Nucleated Red Blood Cells Perc 0.0 % (0-0.0); Platelet Count Result 362 K/mm3 (150-420); Red Blood Count 4.56 M/mm3 (4.20-5.40); White Blood Count 11.6 K/mm3 (4.8-10.8)
[2024-12-26 14:17] LABS: Alanine Aminotransferase 69 U/L (6-35); Albumin Level 3.7 g/dL (3.5-5.1); Alkaline Phosphatase 187 U/L (38-126); Anion Gap 6 mmol/L (4-12); Aspartate Amino Transferase 92 U/L (14-36); Bilirubin,Total 0.5 mg/dL (0.2-1.3); Blood Urea Nitrogen 8 mg/dL (7-17); Calcium 8.6 mg/dL (8.4-10.2); Carbon Dioxide 25 mmol/L (22-30); Chloride 106 mmol/L (98-107); Estimated CRCL calculation 58 ml/min; Estimated Glomerular Filt Rate > 60; Glucose 126 mg/dL (65-110); Lipase 365 U/L (23-300); Osmolality Calculated 284 mOsm/kg (285-295); Potassium 3.8 mmol/L (3.4-5.0); Sodium 137 mmol/L (137-145); Total Protein 6.5 g/dL (6.3-8.2)
[2024-12-26 14:38] LABS: INR 0.9; Prothrombin Time 10.5 Seconds (9.50-12.1)
[2024-12-26 15:07] LABS: Add Urine Microscopic? YES; Appearance Urine Clear (Clear); Glucose Urine UA Negative (Negative); Leukocyte Esterase Ur 2+ LEU/UL (Negative); Nitrate Urine Negative (Negative); Specific Grav Ur 1.010 (1.010-1.020)
--- NOTE | 2024-12-29 13:10 | PC.NURSE ---
Final urine culture report; no growth.
== END 2024-12-26 18:33 | disposition short-term general hospital (02) ==
PROVIDERS: Emergency Provider Internal Medicine Critical Care Medicine; PCP Nurse Practitioner
DX: R74.01 Elevation of levels of liver transaminase levels (principal); R10.84 Generalized abdominal pain; I10 Essential (primary) hypertension; E78.5 Hyperlipidemia, unspecified; Z86.73 Personal history of transient ischemic attack (TIA), and cerebral infarction without residual deficits; Z87.891 Personal history of nicotine dependence
CPT/HCPCS: 36415; 74177; 80053; 81001; 82948; 83605; 83690; 85025; 85610; 87086; 96361; 96374; 99285; J0780; J7120; Q9967

== ENCOUNTER 2025-01-18 08:14 | Outpatient (CLI) | payer BC, SELFPAY ==
--- NOTE | ~2025-01-18 | XR_ITS ---
EXAMINATION: XR ankle RT min 3V DATE: 01/18/2025 08:39 INDICATION: Displaced trimalleolar fracture TECHNIQUE: 4 images of the right ankle were obtained COMPARISON: 12/14/2024 FINDINGS: Casting material has been removed since the previous study. The orthopedic hardware is grossly unchanged without radiographic evidence for loosening. Progressive, yet incomplete healing of the trimalleolar fractures about the right ankle. There is a s table alignment of the fractures. Talar dome is unremarkable. Soft tissue swelling about the right ankle. No new fracture identified. IMPRESSION: 1. Progressive, yet incomplete healing of the trimalleolar fractures about the right ankle. There is a stable alignment of the fractures. Reviewed, dictated and finalized at location A.
--- OUTSIDE RECORDS SUMMARY | 2025-01-18 08:30 | XMS_ITS | Clinical Summary ---
Author Organization [facility] Address [address] [place] [address] Care Team Providers Care Applied Behavior Science Specialist Name Role Phone Yvette Cunningham MD Primary Care Provider [phone] Source Comments [facility],non-owned Affiliates and Associated Physician Practices is amultiple site organization consisting of ambulatory clinics and hospital sitesin [place], [place], [place] and [place]. This disclosure is being madepursuant to the Care Everywhere program and may not contain all information available regarding this patient. Last updated 18.[facility] Allergies Active Allergy Reactions Criticality Noted Date [...] daily Active Calcium Carbonate-Vit D-Min (CALCIUM 1200) 7962-5790 MG-UNIT CHEW Take 1 tablet by mouth [...] [facility] - Cardiology [address] [id number] Unique Valdivia RN Loop Recorder 11/11/2024 10:00 AM CDT Office Visit [facility] - Neurology [address] [facility] [place] [phone] Eleni Gtz PA-C Cerebrovascular accident (CVA), unspecified mechanism (HCC) (Primary Dx); Primary hypertension; Type 2 diabetes, controlled, with neuropathy (HCC); Moderate episode of recurrent major depressive disorder (HCC); Hallucinations; Cognitive dysfunction 11/11/2024 Travel 10/28/2024 Telephone [facility] - Cardiology [id number] [place] [phone] Provider, No Pcp Question; Loop Recorder from [...] on file Legal Sex Female 8:31 AM DATA SCIENTIST Gender Identity Not on file Sexual Orientation Not on file Last Filed Vital Signs Vital Sign Reading Time Taken Comments Blood Pressure 116/74 11/11/2024 9:37 AM CDT Pulse 96 11/11/2024 9:37 AM CDT Temperature 36.6 C (97.8 F) 04/18/2021 12:58 PM DATA SCIENTIST Respiratory Rate 14 11/11/2024 9:37 AM CDT Oxygen Saturation 95% 04/18/2021 3:02 PM DATA SCIENTIST Inhaled Oxygen Concentration - - Weight 77.6 kg (171 lb) 11/11/2024 9:37 AM CDT Height 154.9 cm (5' 1) 11/22/2021 9:51 AM CDT Body Mass Index 32.31 11/22/2021 9:51 AM CDT Plan of Treatment Upcoming Encounters Date Type Department Care Team (Late st Contact Info) Description 02/04/2025 1:00 AM CDT Clinical Support [facility] - [facility]iology [address] [facility] [address] [place] [address] Health Maintenance Due Date Last Done Comments [...] this topic Medical Devices Implanted Type Area Digital Media Strategist Device Identifier Shelf Expiration Date Model / Serial / Lot Sys Crd Mntr Rvl Linq Mycare[employer] Ins - [id number] Implanted:Qty : 1 on 04/18/2021 by Maico De La Cruz MD at [facility] Loop Recorder Left: Chest Wall [employer] 01/14/2022 LINQSYS DISCONTINUED / [id number] / Procedures Procedure Name Priority Date/Time Associated Diagnosis Comments BASIC METABOLIC PANEL (CALCIUM TOTAL) Routine 04/18/2021 3:51 AM DATA SCIENTIST HEMOGLOBIN A1C Add on 04/16/2021 9:35 AM DATA SCIENTIST from Last 3 Months or Most Recently Relevant to Health Maintenance Results * (ABNORMAL) BASIC METABOLIC PANEL (CALCIUM TOTAL) (04/18/2021 3:51 AM DATA SCIENTIST) BUN 7 7 - 26 mg/dL 04/18/2021 5:15 AM [facility] Creatinine 0.80 0.56 - 0.96 mg/dL 04/18/2021 5:15 AM [facility] Sodium 141 136 - 145 mmol/L 04/18/2021 5:15 AM [facility] Potassium 3.2(L) 3.5 - 4.5 mmol/L 04/18/2021 5:15 AM [facility] Chloride 105 98 - 107 mmol/L 04/18/2021 5:15 AM [facility] CO2 21(L) 22 - 29 mmol/L 04/18/2021 5:15 AM [facility] Glucose 185(H) 70 - 115 mg/dL 04/18/2021 5:15 AM [facility] Calcium 9.7 8.4 - 10.2 mg/dL 04/18/2021 5:15 AM [facility] Anion Gap 18 8 - 18 04/18/2021 5:15 AM [facility] BUN/Creatinine Ratio 9 7 - 23 04/18/2021 5:15 AM [facility] Osmolality Calculated 295 270 - 300 mOsm/kg 04/18/2021 5:15 AM [facility] eGFR by CKD-EPI 81(L) >=90 mL/min/1.7 3 m2 04/18/2021 5:15 AM [facility] Blood BLOOD SPECIMEN / Unknown Lab Venipuncture / Unknown 04/18/2021 3:51 AM DATA SCIENTIST 04/18/2021 4:52 AM [facility] us Aaron Hauser MD LAB - CHEMISTRY ORDERABLES Final Result [facility] [address] [place] [address], [facility] [phone] * (ABNORMAL) HEMOGLOBIN A1C (04/16/2021 9:35 AM [facility]) Hemoglobin A1c 7.9(H) 4.4 - 6.3 % 04/16/2021 11:10 AM [facility] Estimated Average Glucose 180 mg/dL 04/16/2021 11:10 AM [facility] Comment: HbA1c Interpretation: Treatment target values recommended by ADA and other clinical organizations should be used to evaluate metabolic control in patients. Treatment Target Values: Normal : < 5.7% Pre-diabetes: 5.7-6.4% Diabetes: Equal to or greater than 6.5% Reference: [place] Diabetes Association Standards of Care in Diabetes -2014 In patients 70 years and older consider HbA1c target range of 7.0-7.5% Reference: Diabetes Mellitus in Older People: Position Statement on behalf of the International Association of Gerontology and Geriatrics (IAGG), the Diabetes Working Libertarian for Older People (EDWPOP), and the International Task Force of Experts in Diabetes. Akash Saavedra et al. J [place] Medical Directors Association. 2012 Test results diagnostic of diabetes should be repeated for confirmation. The Sebia Capillary 2 assay for the measurement of HbA1c is a National Glycohemoglobin Standardization Program (NGSP)certified method. Blood BLOOD SPECIMEN / Unknown Venipuncture / Unknown 04/16/2021 9:35 AM DATA SCIENTIST 04/16/2021 9:40 AM DATA SCIENTIST us Aaron Hauser MD LAB - CHEMISTRY ORDERABLES Final Result [facility] [address] [place] [address], [facility] [phone] from Last 3 Months or Most Recently Relevant to Health Maintenance Insurance [employer] Advance Directives * Full Code (Latest Code Status on File) Date Activated Date Inactivated Comments 04/16/2021 12:01 AM 04/18/2021 5:09 PM Care Teams Applied Behavior Science Specialist Relationship Specialty Start Date End Date Yvette Cunningham MD [address] [place] [address] PCP - General Family Medicine 11/11/24
--- OUTSIDE RECORDS SUMMARY | 2025-01-18 08:30 | XMS_ITS | Clinical Summary ---
Author Organization [facility] Address [address] [place] [address] Care Team Providers Care Engineering Clerk Name Role Phone Pardeep Alethea OROZCO Primary Care Provider [phone] Allergies Active Allergy Reactions Criticality Noted Date Comments Latex Other (See comments),Unknown Low 03/16/2019 Throat swelling Sulfa (Sulfonamide Antibiotics) Anaphylaxis,Hives High 12/07/2017 Medications aspirin 81 mg chewable tablet Take 1 tablet (81 mg total) by mouth daily 1 Active buPROPion XL (WELLBUTRIN XL) 300 mg 24 hr tablet Take 1 tablet (300 mg total) by mouth daily 1 Active FLUoxetine (PROzac) 20 mg capsule Take 3 capsules (60 mg total) by mouth daily 1 Active furosemide (LASIX) 20 mg tablet Take 1 tablet (20 mg total) by mouth daily 7 Active gabapentin (NEURONTIN) 100 mg capsule Take 1 capsule (100 mg total) by mouth 3 (three) times a day 7 Active insulin aspart (NovoLOG) 100 unit/mL vial [...] mg total) by mouth daily 2 Active albuterol HFA (PROVENTIL HFA,VENTOLIN HFA,PROAIR HFA) 90 mcg/actuation inhaler 2 puffs every 4 (four) hours as needed 3 Active Advair Diskus 500-50 mcg/dose diskus inhaler Inhale 1 puff 2 (two) times a day 3 Active acetaminophen (TYLENOL) 500 mg tablet Take 1 tablet (500 mg total) by mouth every 6 (six) hours as needed Active LANTUS 100 unit/mL (3 mL) pen [...] (20 mg) by mouth daily 5 Active Saccharomyces boulardii (FLORASTOR) 250 mg capsule Take 1 capsule (250 mg total) by mouth 2 (two) times a day 5 025 Active cyclobenzaprine (FLEXERIL) 10 mg tablet Take 1 tablet (10 mg total) by mouth 2 (two) times a day as needed for muscle spasms 1 in am, 2 in PM Active ondansetron (ZOFRAN) 4 mg tablet Take 1 tablet (4 mg total) by mouth every 8 (eight) hours as needed for nausea or vomiting. 15 tablet 8 025 Discontin ued(Alter chris therapy) clonazePAM (KlonoPIN) 0.5 mg tablet 1 025 Discontin ued(Thera py completed ) cyclobenzaprine (FLEXERIL) 10 mg tablet Take 1 tablet (10 mg total) by mouth 3 (three) times a day as needed 9 025 Discontin ued(Alter chris therapy) hydrOXYzine (ATARAX) 50 mg tablet Take 1 tablet (50 mg total) by mouth every 6 (six) hours as needed 1 025 Discontin ued(Thera py completed ) omeprazole (PriLOSEC) 20 mg capsule Take 1 capsule (20 mg total) by mouth 2 (two) times a day 1 025 Discontin ued(Alter chris therapy) dulaglutide (Trulicity) 3 mg/0.5 mL pen injectorIndication s:type 2 diabetes mellitus Inject 0.5 mL (3 mg total) under the skin every 7 days e11.65 2 mL 5 2 025 Discontin ued(Thera py completed ) cephalexin (KEFLEX) 500 mg capsule 5 025 Discontin ued(Thera py completed ) Active Problems Problem Noted Date Diagnosed Date Lumbar spondylosis 01/12/2025 Overview (01/12/2025): 11/03/2024: Lumbar spine MRI Findings: There are 5 nonrib-bearing lumbar-type vertebral [...] facet hypertrophy. No significant neural foraminal stenosis. Assessment & Plan (01/12/2025 1:47 PM CDT): Plan for intraarticular facet steroid injection with fenestration of facet cyst at the L4-[address] Patel's request. Follow up to involve discussion between care team and patient regarding next steps. Class 1 obesity due to exces s calories with serious comorbidity and body mass index (BMI) of 32.0 to 32.9 in adult 12/31/2024 Medtronic 780G Insulin pump in place 05/11/2021 Assessment & Plan (12/31/2024 1:26 PM CDT): This is a chronic condition which is at goal. Download reviewed. 12/18/2024 to 12/31/2024 Type of insulin pump- Medtronics 780G with guardian 4 sensor. auto mode-90% Pump settings : adjusted Basal - 2 units/hr decreased to 1.25 units IC- 5.4 increased to 7 ISF decreased from 100 to 30 Active insulin time - 2hrs. TARGET GLUCOSE 100-110 Avg Total daily insulin 58.5 units Avg daily basal 35 units (59%) Avg daily bolus 24 units (41%) Interpretation- above goal. In target range 96% of the time, 4% hyperglycemia, 0 hypoglycemia. Average blood sugar 123 +/- 29 mg/dL Assessment & Plan (05/01/2023 9:38 AM LANDSCAPE TECHNICIAN): This is a chronic condition which [...] pump. Assessment & Plan (06/28/2021 2:03 PM LANDSCAPE TECHNICIAN): This is a chronic condition which [...] pump. Assessment & Plan (05/11/2021 1:59 PM LANDSCAPE TECHNICIAN): This is a chronic condition which [...] 02/18/2017 Assessment & Plan (05/01/2023 9:38 AM LANDSCAPE TECHNICIAN): This is a chronic condition which [...] prescribed. Assessment & Plan (06/28/2021 2:03 PM LANDSCAPE TECHNICIAN): This is a chronic condition which is at goal. Goal is less than 70. Personally reviewed lipid panel. ldl-43 on crestor. Encouraged to eat healthy, include fresh fruits and vegetables daily and avoid eating fried foods more than once per week. Encouraged to take medications as prescribed. Assessment & Plan (05/11/2021 1:12 PM LANDSCAPE TECHNICIAN): This is a chronic condition which is at goal. Goal is less than 70. Personally reviewed lipid panel. ldl-43 on crestor. Encouraged to eat healthy, include fresh fruits and vegetables daily and avoid eating fried foods more than once per week. Encouraged to take medications as prescribed. Hypertension associated with type 2 diabetes kate litus 02/18/2017 Assessment & Plan (05/11/2021 1:11 PM LANDSCAPE TECHNICIAN): This is a chronic condition which is at goal Goal is <140/90 Personally reviewed labs. B/p - 128/66. Stable on lisinopril. Avoid caffeine, caffeine will raise blood pressure and excessive alcohol consumption. Monitor your weight and B/P. Encouraged to take medications as prescribed. Type 2 diabetes mellitus wit h stage 3a chronic kidney disease, with long-term current use of insulin 02/18/2017 Assessment & Plan (05/01/2023 9:35 AM LANDSCAPE TECHNICIAN): This is a chronic condition which [...] eye exam. last dilated eye exam was [facility] in [place] Monofilament foot exam completed. protective senses intact [...] worsening and not at goal. Personally reviewed [id number] to 9% not at goal less than [...] which is not at goal. Personally reviewed [id number] to 9% not at goal less than [...] CVA Assessment & Plan (06/28/2021 2:00 PM LANDSCAPE TECHNICIAN): This is a chronic condition which [...] CVA Assessment & Plan (05/11/2021 1:09 PM LANDSCAPE TECHNICIAN): This is a chronic condition which [...] scheduled Assessment & Plan (06/28/2021 2:04 PM LANDSCAPE TECHNICIAN): Improving. Continue to see therapy as scheduled Assessment & Plan (05/11/2021 1:10 PM LANDSCAPE TECHNICIAN): This is a chronic condition. Seeing speech therapy. Give extra time to allow her to get her words out Encounters Date Type Department Care Team Description 01/12/2025 8:39 AM CDT - 01/12/2025 11:59 PM CDT Hospital Encounter [facility] [address] [place] [id number] Ruddy Mcclain MD Lumbar spondylosis (Primary Dx) Discharge Disposition: Discharge to home or self care 12/31/2024 1:00 PM CDT Office Visit [facility] at [address] [phone] Harleen Butler, ERNESTO Type 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, with long-term current use of insulin (HCC) (Primary Dx); Mixed hyperlipidemia; Hypertension associated with type 2 diabetes mellitus (HCC); Medtronic 780G Insulin pump in place; Class 1 obesity due to excess calories with serious comorbidity and body mass index (BMI) of 32.0 to 32.9 in adult 12/22/2024 7:50 AM CDT Office Visit [facility] [address] [place] [address] Advanced Medicine [address] [place] [address] [place] [address] Walter Patel MD Low back pain, unspecified back pain laterality, unspecified chronicity, unspecified whether sciatica present (Primary Dx); Spinal stenosis, unspecified spinal region; Low back pain with left-sided sciatica, unspecified back pain laterality, unspecified chronicity 12/22/2024 7:15 AM CDT - 12/22/2024 11:59 PM CDT Hospital Encounter [facility] [address] [place] [id number] Low back pain, unspecified back pain laterality, unspecified chronicity, unspecified whether sciatica present Discharge Disposition: Discharge to home or self care 12/22/2024 Orders Only [facility] [address] [place] [address] [place] [address] [place] [address] Walter Patel MD Low back pain with left-sided sciatica, unspecified back pain laterality, unspecified chronicity (Primary Dx); Spinal stenosis, unspecified spinal region; Cyst of lumbar facet joint 12/09/2024 10:21 AM CDT - 12/09/2024 11:59 PM CDT Hospital Encounter [facility] [address] [place] [id number] Discharge Disposition: Discharge to home or self care 12/09/2024 10:21 AM CDT - 12/09/2024 11:59 PM CDT Hospital Encounter [facility]) [address] [place] [address], [place] [address] Discharge Disposition: Discharge to home or self care 12/09/2024 10:20 AM CDT - 12/09/2024 11:59 PM CDT Hospital Encounter [facility] ([facility]) [address] [place] [address] Discharge Disposition: Discharge to home or self care 12/09/2024 10:19 AM CDT - 12/09/2024 11:59 PM CDT Hospital Encounter [facility] ([facility]) [address] [place] [address] Discharge Disposition: Discharge to home or self care 12/09/2024 10:19 AM CDT - 12/09/2024 11:59 PM CDT Hospital Encounter [facility] ([facility]) [address] [place] [address] Discharge Disposition: Discharge to home or self care 12/09/2024 Telephone [facility] [address] [place] [phone] Ely Montes, KORINA Patel Appointment Questions from Last 3 Months Surgical History Surgery Date Site/Laterality Comments APPENDECTOMY Appendectomy - (Added by TW Conv) CHOLECYSTECTOMY Cholecystectomy - 1985 (Added by TW Conv) SECTION Section - 1990 (Added by Conv) Medical History Medical History Date Comments Diabetes mellitus type I (HCC) Encounter for long-term (current) use of other m edications 10/13/2021 Aphasia 04/16/2021 Stroke (HCC) 04/03/2022 aphasia Family History Medical History Relation Name Comments [...] uit: 01/10/2020 Tobacco Cessation:Counseling Given: Not Answered Alcohol Use Standard Drinks/Week Comments Never 0 (1 standard drink = 0.6 oz pur e alcohol) AUDIT-C Answer Date Recorded Q1: How often do you have a drink containing alcohol? Never 01/12/2025 Q2: How many drinks containi ng alcohol do you have on a typical day when you are drinking? Patient does not drink Q3: How often do you have si x or more drinks on one occasion? Never 01/12/2025 Comments No Sex and Gender Information Value Date Recorded Sex Assigned at Not on file Legal Sex Female 4:58 PM LANDSCAPE TECHNICIAN Gender Identity Not on file Sexual Orientation Not on file Obstetrics History Last Filed Vital Signs Vital Sign Reading Time Taken Comments Blood Pressure 111/54 01/12/2025 9:31 AM CDT Pulse 73 01/12/2025 9:31 AM CDT Temperature 36.3 C (97.3 F) 01/12/2025 9:31 AM CDT Respiratory Rate 16 01/12/2025 9:31 AM CDT Oxygen Saturation 98% 01/12/2025 9:31 AM CDT Inhaled Oxygen Concentration - - Weight 79.4 kg (175 lb) 01/12/2025 9:31 AM CDT Height 154.9 cm (5' 1) 01/12/2025 9:31 AM CDT Body Mass Index 33.07 01/12/2025 9:31 AM CDT Plan of Treatment Health Maintenance Due Date Last Done Comments Cervical Cancer Screening 1963 Colon Cancer Screening-Colonoscopy 1963 Depression Screening 1963 Hepatitis C Screening 1963 DTaP/Tdap/Td Vaccine (1 - Tdap) 1974 Hepatitis B Screening 1981 Regular Well Visit/Exam 18-64 1981 Pneumococcal vaccine <65 (1 of 2 - PCV) 1982 Zoster Vaccine (1 of 2) 2013 Albumin Creatinine Ratio, Urine 12/20/2023 3, 02/18/2017 Lipid Panel 12/20/2023 12/19/2022, 04/03, 04/16/2021, Additional history exists eGFR 12/20/2023 12/19/2022, 12/01, 06/06/2021, Additional history exists Covid-19 Vaccine (3 - 2023-2 5 season) 2024 09/06/2020, 08/09/2020 Breast Cancer Screening-Mammogram 03/22/2024 03/22/2023, 03/22/2023, 12/21/2021 Foot Exam 05/01/2024 05/01/2023, 01/02, 10/13/2021, Additional history exists Influenza Vaccine (#1) 2025 04/17/2021, 2019 Dilated Eye Exam 03/26/2025 03/26/2023, 12/29/2020 Hemoglobin A1C 07/03/2025 12/31/2024, 04/04, 01/29/2023, Additional history exists Goals Goal Patient Goal Type Associated Problems Recent Progress Patient-Stated? Author CCM Chronic Pain Care Plan Chronic Care Management No Sherly Rollins, RN Note: Problem: Chronic Pain Goals: 1. Minimize further functional decline 2. Maximize quality of life 3. Control pain Strategies: - Activity/exercise program recommendation - Conservative stepwise pain medicine strategy with multi-disciplinary approach - Recommend healthy lifestyle strategies and compensatory methods as needed Procedures Procedure Name Priority Date/Time Associated Diagnosis Comments POCT HEMOGLOBIN A1C Routine 12/31/2024 1 :08 PM CDT Type 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, with long-term current use of insulin (HCC) POCT GLUCOSE Routine 12/31/2024 1:07 PM CDT Type 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, with long-term current use of insulin (HCC) XR SCOLIOSIS 6 OR MORE VIEWS Schedule [...] OUTSIDE REFERENCE Routine 12/09/2024 10:19 AM CDT DIABETIC EYE EXAM Routine 03/26/2023 COMPREHENSIVE METABOLIC PANEL Routine 12/19/2022 LIPID PANEL Routine 12/19/2022 ALBUMIN CREATININE RATIO, URINE Routine 12/19/2022 from Last 3 Months or Most Recently Relevant to Health Maintenance Results * (ABNORMAL) POCT hemoglobin A1c (12/31/2024 1:08 PM CDT) Hemoglobin A1C, POC 7.6(A) 4.0 - 5.6 % Blood 12/31/2024 1:08 PM CDT us Harleen Butler NP POINT OF CARE TEST ORDERABLES F inal Result * POCT glucose (12/31/2024 1:07 PM CDT) Glucose Blood, POC 151 Normal Fasting 70 - 100, Random <200 mg/dL Blood 12/31/2024 1:07 PM CDT us Harleen Butler NP POINT OF CARE TEST ORDERABLES F inal Result * XR Scoliosis 6 or More Views [...] Outside Reference (12/09/2024 10:21 AM CDT) Impressions [facility] - 12/09/2024 10:21 AM CDT These images are for Reference purposes only and have not been reviewed by [facility]. There will be no report generated by a [facility]iologist. Narrative [facility] - 12/09/2024 10:21 AM CDT EXAMINATION: Images For Reference Purposes Only Walter Patel MD IMG XR PROCEDURES Fi nal Result [facility] * Neuro CT Outside Reference (12/09/2024 10:21 AM CDT) Impressions [facility] - 12/09/2024 10:21 AM CDT These images are for Reference purposes only and have not been reviewed by [facility]. There will be no report generated by a [facility]iologist. Narrative [facility] - 12/09/2024 10:21 AM CDT EXAMINATION: Images For Reference Purposes Only Walter Patel MD IMG CT PROCEDURES Fi nal Result Performing Organization Address [facility] de Phone Number [email or web address] * Neuro MR Outside Reference (12/09/2024 10:20 AM CDT) Impressions [facility] - 12/09/2024 10:20 AM CDT These images are for Reference purposes only and have not been reviewed by [facility]. There will be no report generated by a [facility] Radiologist. Narrative [facility] - 12/09/2024 10:20 AM CDT EXAMINATION: Images For Reference Purposes Only Walter Patel MD IMG MRI PROCEDURES F inal Result Performing Organization Address [facility] de Phone Number [email or web address] * Neuro MR Outside Reference (12/09/2024 10:19 AM CDT) Impressions [facility] - 12/09/2024 10:19 AM CDT These images are for Reference purposes only and have not been reviewed by [facility]. There will be no report generated by a [facility]iologist. Narrative [facility] - 12/09/2024 10:19 AM CDT EXAMINATION: Images For Reference Purposes Only Walter Patel MD IMG MRI PROCEDURES F inal Result Performing Organization Address [facility] de Phone Number [email or web address] * Neuro MR Outside Reference (12/09/2024 10:19 AM CDT) Impressions [facility] - 12/09/2024 10:19 AM CDT These images are for Reference purposes only and have not been reviewed by [facility]. There will be no report generated by a [facility]iologist. Narrative [facility] - 12/09/2024 10:19 AM CDT EXAMINATION: Images For Reference Purposes Only Walter Patel MD IMG MRI PROCEDURES F inal Result Performing Organization Address [facility] de Phone Number [email or web address] * Diabetic Eye Exam (03/26/2023) 03/26/2023 Historical Provider HEALTH MAINTENANCE Final Result * Albumin Creatinine Ratio, Urine (12/19/2022) Pathologist [facility] SCRIBED Creatinine, Urine 54.6 - - - [facility] SCRIBED Microalbumin 12.1 - - - [facility] SCRIBED Microalb/Creat Ratio 22 [facility] Urine 12/19/2022 Historical Provider LAB URINE ORDERABLES Gauri l Result Performing Organization Address [facility] de Phone Number [facility] * Lipid panel (12/19/2022) Pathologist [facility] SCRIBED Cholesterol, Total 138 - - - [facility] SCRIBED HDL 66 - - - [facility] SCRIBED LDL 46 - - - [facility] SCRIBED Triglycerides 157 - - - [facility] Blood 12/19/2022 Historical Provider LAB BLOOD ORDERABLES Gauri l Result Performing Organization Address [facility] de Phone Number [facility] * Comprehensive [...] - - [facility] SCRIBED eGFR in NonAfrican Citizen Of [place] 51 - - - [facility] Blood 12/19/2022 us Historical Provider LAB BLOOD ORDERABLES Gauri napier Result [facility] from Last 3 Months or Most Recently Relevant to Health Maintenance Insurance Gradient X AL Gradient X AL [facility] Care Teams Engineering Clerk Relationship Specialty Start Date End Date Alethea Roberto NP [address] [place] [address] PCP - General Family Medicine 05/01/23
--- OUTSIDE RECORDS SUMMARY | 2025-01-18 08:30 | XMS_ITS | Clinical Summary ---
Author Organization [facility] Address [address] [place] [address] Phone Care Team Providers Care Buckle Strap Puncher Name Role Phone Yvette Cunningham MD Primary Care Provider + Allergies Active Allergy Reactions Criticality Noted Date Comments Sulfa (Sulfonamide Antibiotics) Hives High 12/02 Medications cyclobenzaprine HCl (CYCLOBENZAPRIN E ORAL) Take by mouth. Active saccharomyces boulardii (FLORASTOR) 250 mg Capsule Take 1 Capsule (250 mg) by mouth 2 times daily. 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 Transaminitis 12/26/2024 Common bile duct obstruction 12/26/2024 Nausea vomiting and diarrhea 12/26/2024 Leukocytosis (leucocytosis) 12/26/2024 Dehydration 12/26/2024 Encounters Date Type Department Care Team Description 12/29/2024 External Device Data [facility] ABSTRACTION Provider, Abstract 12/29/2024 External Device Data [facility] ABSTRACTION Provider, Abstract 12/29/2024 External Device Data [facility] ABSTRACTION Provider, Abstract 12/28/2024 Telephone [facility] GASTROENTEROLOGY - [id number] [facility] [id number] [facility] [address] [place] [address] Rocio Katz, PATIENT MANAGER Referral (Once discharged, repeat LFTs one week after discharge/If LFTs continuing to increase or still elevated plan for outpatient EUS+/-ERCP) 12/27/2024 Travel 12/26/2024 7:49 PM CDT - 12/28/2024 3:07 PM CDT Hospital Encounter [facility] [address] [place] [address] Nish Hester DO Afzal, Soha, DO Husain, Ali, MD Common bile duct obstruction (CMS/HCC) Discharge Disposition: Home or Self Care from Last 3 Months Social History Tobacco Use Types Packs/Day Years Used Date Smoking Tobacco: Never Assessed Comments Unknown Sex and Gender Information Value Date Recorded Sex Assigned at Not on file Legal Sex Female 4:33 PM CDT Gender Identity Not on file Sexual Orientation Not on file Last Filed Vital Signs Vital Sign Reading Time Taken Comments Blood Pressure 138/60 12/28/2024 7:18 AM CDT Pulse 96 12/28/2024 7:18 AM CDT Temperature 36.8 C (98.3 F) 12/28/2024 7:18 AM CDT Respiratory Rate 16 12/28/2024 7:18 AM CDT Oxygen Saturation 92% 12/28/2024 7:18 AM CDT Inhaled Oxygen Concentration - - Weight 78.5 kg (173 lb) 12/28/2024 7:21 AM CDT Height 154.9 cm (5' 1) 12/26/2024 9:00 PM CDT Body Mass Index 32.69 12/26/2024 9:00 PM CDT Plan of Treatment Health Maintenance Due Date Last Done Comments DIABETES ANNUAL RETINAL EXAM 1981 DIABETES MICROALBUMIN ANNUAL SCREEN 1981 LDL CHOLESTEROL ANNUAL 1981 DTAP/TDAP/TD VACCINES (1 - Tdap) 1982 HPV/Cotest (21-29) 02/06/1984 CERVICAL CANCER SCREENING 1993 HPV/Cotest (30-65) 1993 PAP SMEAR 1993 COLORECTAL SCREENING 02/06/2008 Colorectal Cancer Screening 02/06/2008 FIT-DNA Q 3 years 02/06/2008 FIT/FOBT Q 1 year 02/06/2008 Flex Sig/CT Colonography Q 5 years 02/06/2008 ZOSTER VACCINE (1 of 2) 2013 RSV VACCINE (60+ or ) (1 - Risk 60-74 years 1-dose series) 2023 BREAST CANCER SCREENING 03/22/2024 03/22/20 23, 03/22/2023, 12/21/2021 DIABETES ANNUAL FOOT EXAM 05/01/2024 05/01/2023 DIABETES HBA1C Q 6 MONTHS 10/10/20242023, 04/11/2024, 05/01/2023, Additional history exists INFLUENZA VACCINE (#1) 2025 04/17/2021 Procedures Procedure Name Priority Date/Time Associated Diagnosis Comments COMPREHENSIVE METABOLIC PANEL Routine 12/28/2024 10:27 AM CDT CBC WITH DIFFERENTIAL Routine 12/28/2024 10:27 AM CDT MRI MRCP W AND WO CONTRAST Routine 12/28/2024 9:38 AM CDT US ABDOMEN LIMITED Routine 12/27/2024 7: 00 AM CDT POC GLUCOSE Routine 12/27/2024 5:10 AM CDT FERRITIN Routine 12/27/2024 3:04 AM CDT IRON, TIBC, AND PERCENT SATURATION Routine 12/27/2024 3:04 AM CDT BASIC METABOLIC PANEL Routine 12/27/2024 3:04 AM CDT CBC WITH DIFFERENTIAL Routine 12/27/2024 3:04 AM CDT EKG 12-LEAD Stat 12/26/2024 10:31 PM CDT COMPREHENSIVE METABOLIC PANEL Stat 12/26/2024 9:24 PM CDT PHOSPHORUS Stat 12/26/2024 9:24 PM CDT MAGNESIUM LEVEL Stat 12/26/2024 9:24 PM CDT CBC WITH DIFFERENTIAL Stat 12/26/2024 9:24 PM CDT from Last 3 Months Results * (ABNORMAL) CBC WITH DIFFERENTIAL (12/28/2024 10:27 AM CDT) Only the most recent of3 resultswithin the time period is included. WBC 12.0(H) 4.0 - 9.8 K/uL 12/28/2024 10:48 AM CDT [facility] RBC 4.66 3.90 - 4.90 M/uL 12/28/2024 10:48 AM CDT [facility] HEMOGLOBIN 12.2 11.8 - 14.8 g/dL 12/28/2024 10:48 AM CDT [facility] HEMATOCRIT 39.5 35.5 - 44.0 % 12/28/2024 10:48 AM CDT [facility] MCV 84.8 82.0 - 99.0 fL 12/28/2024 10:48 AM CDT [facility] MCH 26.2(L) 27.2 - 32.6 pg 12/28/2024 10:48 AM CDT [facility] MCHC 30.9(L) 31.5 - 35.5 g/dL 12/28/2024 10:48 AM CDT [facility] RDW 18.6(H) 11.5 - 14.5 % 12/28/2024 10:48 AM CDT [facility] [employer] RDW-STDEV 57.3(H) 37.1 - 48.7 fL 12/28/2024 10:48 AM CDT [facility] [employer] PLATELETS 342 140 - 350 K/uL 12/28/2024 10:48 AM CDT [facility] [employer] [facility] MPV 10.3 9.3 - 12.4 fL 12/28/2024 10:48 AM CDT [facility] NEUTROPHILS 50 % 12/28/2024 10:48 AM CDT [facility] LYMPHOCYTES 34 % 12/28/2024 10:48 AM CDT [facility] MONOCYTES 11 % 12/28/2024 10:48 AM CDT [facility] EOSINOPHILS 5 % 12/28/2024 10:48 AM CDT [facility] BASOPHILS 1 % 12/28/2024 10:48 AM CDT [facility] IMMATURE GRANULOCYTES 0 % 12/28/2024 10:48 AM CDT [facility] NEUTROPHIL ABSOLUTE 5.99 1.90 - 7.00 K/uL 12/28/2024 10:48 AM CDT [facility] LYMPHOCYTE ABSOLUTE 4.12 0.70 - 4.50 K/uL 12/28/2024 10:48 AM CDT [facility] MONOCYTE ABSOLUTE 1.26 0.10 - 1.30 K/uL 12/28/2024 10:48 AM CDT [facility] EOSINOPHIL ABSOLUTE 0.55 0.00 - 0.70 K/uL 12/28/2024 10:48 AM CDT [facility] BASOPHILS ABSOLUTE 0.08 0.00 - 0.20 K/uL 12/28/2024 10:48 AM CDT [facility] IMMATURE GRANULOCYTES ABSOLUTE 0.03 0.00 - 0.03 K/uL 12/28/2024 10:48 AM CDT [facility] Blood Venipuncture / Unknown 12/28/2024 10:27 AM CDT 12/28/2024 10:46 AM CDT Rocio Katz NP HEMATOLOGY ORDERABLES Final Result [facility] CLIA# [id number] [place] [address] * (ABNORMAL) COMPREHENSIVE METABOLIC PANEL (12/28/2024 10:27 AM CDT) Only the most recent of2 resultswithin the time period is included. SODIUM 138 136 - 145 mmol/L 12/28/2024 11:14 AM CDT [facility] POTASSIUM 3.7 3.4 - 5.1 mmol/L 12/28/2024 11:14 AM [facility] CHLORIDE 103 98 - 107 mmol/L 12/28/2024 11:14 AM [facility] CO2 22 22 - 29 mmol/L 12/28/2024 11:14 AM [facility] CALCIUM 9.4 8.6 - 10.4 mg/dL 12/28/2024 11:14 AM [facility] BUN 7 6 - 20 mg/dL 12/28/2024 11:14 AM [facility] CREATININE 0.76 0.51 - 0.95 mg/dL 12/28/2024 11:14 AM [facility] GLUCOSE 150(H) 74 - 99 mg/dL 12/28/2024 11:14 AM [facility] TOTAL PROTEIN 6.4 6.3 - 8.7 g/dL 12/28/2024 11:14 AM [facility] ALBUMIN 3.7 3.5 - 5.2 g/dL 12/28/2024 11:14 AM [facility] BILIRUBIN TOTAL 0.3 0.0 - 1.1 mg/dL 12/28/2024 11:14 AM [facility] ALKALINE PHOSPHATASE 326(H) 40 - 150 U/L 12/28/2024 11:14 AM [facility] AST 116(H) 0 - 33 U/L 12/28/2024 11:14 AM [facility] ALT 97(H) 0 - 33 U/L 12/28/2024 11:14 AM [facility] GFR >60 >=60 mL/min/1.7 3 sq meter 12/28/2024 11:14 AM [facility] Comment:eGFR calculated with 2020 CKD-EPI equation. Vegetarian diet, extremely high or low muscle mass, and may affect results. Cystatin C with Glomerular Filtration Rate is a suitable alternative for these patients. ANION GAP 13 8 - 16 mmol/L 12/28/2024 11:14 AM CDT [facility] Blood Venipuncture / Unknown 12/28/2024 10:27 AM CDT 12/28/2024 10:44 AM CDT Rocio Katz NP CHEMISTRY ORDERABLES Final R esult [facility] CLIA# [id number] [place] [address] * MRI MRCP W AND WO CONTRAST (12/28/2024 9:38 AM CDT) Anatomical Region Laterality Modality Abdomen Magnetic Resonan ce 12/28/2024 9:38 AM CDT Impressions 12/28/2024 10:50 AM CDT IMPRESSION: Nonspecific biliary duct dilatation postcholecystectomy without detectable mass or choledocholithiasis. DICTATION LOCATION: Location [address] [place] [address] Narrative 12/28/2024 10:50 AM CDT EXAMINATION: MRI MRCP W AND WO CONTRAST DATE: 12/28/2024 9:38 AM HISTORY: RUQ abdominal pain,, cholecystectomy, and dilated common bile duct on yesterday's abdomen ultrasound FINDINGS: Multiplanar magnetic resonance imaging of the abdomen is performed without and with 16 mL intravenous MultiHance. MRCP is performed. Comparison is made to the above sonogram. Cholecystectomy, obesity, 2.5 mm diameter pancreatic duct, and diffuse biliary duct dilatation are observed. Maximal common bile duct diameter is 15 mm. The liver, adrenals, kidneys, spleen, and pancreas are normal. There is no mass, choledocholithiasis, inflammatory process, or lymphadenopathy. Procedure Note Mike Woods MD - 12/28/2024 EXAMINATION: MRI MRCP W AND WO CONTRAST DATE: 12/28/2024 9:38 AM HISTORY: RUQ abdominal pain,, cholecystectomy, and dilated common bile duct on yesterday's abdomen ultrasound FINDINGS: Multiplanar magnetic resonance imaging of the abdomen is performed without and with 16 mL intravenous MultiHance. MRCP is performed. Comparison is made to the above sonogram. Cholecystectomy, obesity, 2.5 mm diameter pancreatic duct, and diffuse biliary duct dilatation are observed. Maximal common bile duct diameter is 15 mm. The liver, adrenals, kidneys, spleen, and pancreas are normal. There is no mass, choledocholithiasis, inflammatory process, or lymphadenopathy. IMPRESSION: Nonspecific biliary duct dilatation postcholecystectomy without detectable mass or choledocholithiasis. DICTATION LOCATION: [address] us Darby Deninson MD MR ORDERABLES Final Result * US ABDOMEN LIMITED (12/27/2024 7:00 AM CDT) Anatomical Region Laterality Modality Abdomen Ultrasound 12/27/2024 7:09 AM CDT Impressions 12/27/2024 7:32 AM CDT IMPRESSION: Cholecystectomy Dilated extrahepatic common bile duct DICTATION LOCATION: [address] Narrative 12/27/2024 7:32 AM CDT ULTRASOUND RIGHT UPPER QUADRANT DATE: 12/27/2024 7:00 AM HISTORY: Elevated LFT's, Epigastric Pain See Reason for Exam COMPARISON: No prior studies are available for comparison. TECHNIQUE: Real time ultrasonography was performed of the right upper quadrant with freeze frame recording of the images. FINDINGS: The pancreas is within normal limits. The liver is normal. The right kidney is within normal limits. There is no ascites. The portal vein shows normal flow. The gallbladder is been removed. Common bile duct measures 11 mm. I NCIDENTAL FINDINGS: None. Procedure Note Quinton Pedroza MD - 12/27/2024 ULTRASOUND RIGHT UPPER QUADRANT DATE: 12/27/2024 7:00 AM HISTORY: Elevated LFT's, Epigastric Pain See Reason for Exam COMPARISON: No prior studies are available for comparison. TECHNIQUE: Real time ultrasonography was performed of the right upper quadrant with freeze frame recording of the images. FINDINGS: The pancreas is within normal limits. The liver is normal. The right kidney is within normal limits. There is no ascites. The portal vein shows normal flow. The gallbladder is been removed. Common bile duct measures 11 mm. I NCIDENTAL FINDINGS: None. IMPRESSION: Cholecystectomy Dilated extrahepatic common bile duct DICTATION LOCATION: Location [address] [place] [address] us Abby Keke DO US ORDERABLES Final Result * POC GLUCOSE (12/27/2024 5:10 AM CDT) Pathologist [facility] GLUCOSE POC 97 74 - 99 mg/dL 12/27/2024 5:10 AM CDT [facility] POINT OF CARE SPECIMEN SOURCE, GLUCOSE POC Whole Blood 12/27/2024 5:10 AM CDT [facility] POINT OF CARE Blood, whole 12/27/2024 5:10 AM CDT 12/27/2024 5:17 AM CDT us Abby Keke DO POINT OF CARE TESTING Final Resu lt [facility] POINT OF CARE CLIA # [id number] [place] [address] * (ABNORMAL) IRON, TIBC, AND PERCENT SATURATION (12/27/2024 3:04 AM CDT) [facility] IRON 22(L) 37 - 145 ug/dL 12/28/2024 11:49 AM CDT [facility] TIBC 330 265 - 497 ug/dL 12/28/2024 11:49 AM CDT [facility] IRON % SATURATION 7(L) 20 - 55 % 12/28/2024 11:49 AM CDT [facility] TRANSFERRIN 260 200 - 360 mg/dL 12/28/2024 11:49 AM CDT [facility] Blood Venipuncture / Unknown 12/27/2024 3:04 AM CDT 12/27/2024 3:42 AM CDT Rocio Katz PATIENT MANAGER CHEMISTRY ORDERABLES Final R esult [facility] CLIA# [id number] [place] [address] * FERRITIN (12/27/2024 3:04 AM CDT) [facility] FERRITIN 29.5 13.0 - 150.0 ng/mL 12/28/2024 11:49 AM T [facility] Blood Venipuncture / Unknown 12/27/2024 3:04 AM CDT 12/27/2024 3:42 AM CDT Rocio Katz NP CHEMISTRY ORDERABLES Final R esult [facility] CLIA# [id number] [place] [address] * BASIC METABOLIC PANEL (12/27/2024 3:04 AM CDT) SODIUM 139 136 - 145 mmol/L 12/27/2024 4:19 AM [facility] POTASSIUM 3.5 3.4 - 5.1 mmol/L 12/27/2024 4:19 AM [facility] CHLORIDE 104 98 - 107 mmol/L 12/27/2024 4:19 AM [facility] CO2 22 22 - 29 mmol/L 12/27/2024 4:19 AM [facility] CALCIUM 8.6 8.6 - 10.4 mg/dL 12/27/2024 4:19 AM [facility] BUN 9 6 - 20 mg/dL 12/27/2024 4:19 AM [facility] CREATININE 0.82 0.51 - 0.95 mg/dL 12/27/2024 4:19 AM [facility] GLUCOSE 86 74 - 99 mg/dL 12/27/2024 4:19 AM T [facility] GFR >60 >=60 mL/min/1.7 3 sq meter 12/27/2024 4:19 AM [facility] Comment:eGFR calculated with 2020 CKD-EPI equation. Vegetarian diet, extremely high or low muscle mass, and may affect results. Cystatin C with Glomerular Filtration Rate is a suitable alternative for these patients. ANION GAP 13 8 - 16 mmol/L 12/27/2024 4:19 AM CDT [facility] Blood Venipuncture / Unknown 12/27/2024 3:04 AM CDT 12/27/2024 3:42 AM CDT us Abby Davies DO CHEMISTRY ORDERABLES Final Resul t [facility] CLIA# [id number] [address] [place] [address] * EKG 12-LEAD (12/26/2024 10:31 PM CDT) 12/26/2024 10:3 1 PM CDT Narrative INTERFACE SYSTEM - 12/27/2024 1:19 [place] [address] Test Date: 2024-12-26 Pat Name: PRAVIN MORAES Department: 98 Room: [address] [place] [address] Gender: Female Utility Bag Assembler: [place] : 1965 Requested By: NISH HESTER Order Number: [id number] Reading MD: Chavo Iraheta Measurements Intervals [place] Rate: 100 P: 35 VA: 118 QRS: 14 QRSD: 72 T: 82 QT: 340 QTc: 438 Interpretive Statements Normal sinus rhythm Nonspecific ST and T wave abnormality Abnormal ECG No previous ECG available for comparison Electronically Signed On 12-27-2024 13:19:59 CDT by Chavo Iraheta Procedure Note Provider, Historical - 12/27/2024 [place] [address] Test Date: 2024-12-26 Pat Name: PRAVIN MORAES Department: 98 Room: [address] [place] [address] Gender: Female Utility Bag Assembler: ST2 : 1965 Requested By: NISH HESTER Order Number: [id number] Reading MD: Chavo Iraheta Measurements Intervals [place] Rate: 100 P: 35 VA: 118 QRS: 14 QRSD: 72 T: 82 QT: 340 QTc: 438 Interpretive Statements Normal sinus rhythm Nonspecific ST and T wave abnormality Abnormal ECG No previous ECG available for comparison Electronically Signed On 12-27-2024 13:19:59 CDT by Chavo Iraheta Abby Keke DO ECG ORDERABLES Final Result Performing Organization Address City/[facility]/ZIP Co de Phone Number INTERFACE SYSTEM Refer to clinic/hospital department * PHOSPHORUS (12/26/2024 9:24 PM CDT) PHOSPHORUS 4.1 2.5 - 4.5 mg/dL 12/26/2024 9:59 PM CDT [facility] Blood Venipuncture / Unknown 12/26/2024 9:24 PM CDT 12/26/2024 9:29 PM CDT Abby Keke DO CHEMISTRY ORDERABLES Final Resul t Performing Organization Address [facility] Co de Phone Number [facility] CLIA# [id number] [place] [address] * MAGNESIUM LEVEL (12/26/2024 9:24 PM CDT) MAGNESIUM 1.8 1.6 - 2.6 mg/dL 12/26/2024 9:59 PM CDT [facility] Blood Venipuncture / Unknown 12/26/2024 9:24 PM CDT 12/26/2024 9:29 PM CDT Abby Keke DO CHEMISTRY ORDERABLES Final Resul t Performing Organization Address City/[facility]/ZIP Co de Phone Number [facility] CLIA# [id number] [place] [address] from Last 3 Months Insurance BCBS OUT OF STATE Advance Directives For more information, please contact: [phone] * Full Code (Latest Code Status on File) Date Activated Date Inactivated Comments 12/26/2024 9:08 PM 12/28/2024 5:17 PM Care Teams Buckle Strap Puncher Relationship Specialty Start Date End Date Yvette Cunningham MD [address] [place] [address] PCP - General Family Practice 12/27/24
== END 2025-01-18 08:15 | disposition home or self-care (01) ==
LOC: CHSIMG 08:19
PROVIDERS: Visit Provider Orthopaedic Surgery
DX: S82.851D Displaced trimalleolar fracture of right lower leg, subsequent encounter for closed fracture with routine healing (principal)
CPT/HCPCS: 73610

== ENCOUNTER 2025-01-28 13:26 | Emergency (ER) | payer BC, SELFPAY ==
[2025-01-28] VITALS (19 sets, daily range): BP systolic 113–147; BP diastolic 62–95; PULSE 89–112; RESP 13–25; TEMP 36.8–36.9; O2SAT 95–100
--- NOTE | ~2025-01-28 | CT_ITS ---
EXAMINATION: Retrograde DATE: 01/28/2025 14:23 INDICATION: Altered mental status TECHNIQUE: Computed tomography (CT) of the head was performed without intravenous contrast. The dose-length product was 605.33 mGy-cm. COMPARISON: 10/18/2024 FINDINGS: No acute intracranial hemorrhage. No midline shift. No hydrocephalus. Stable low-density region in the left temporal frontal lobe as compared to the CT study from 10/18/2024 suggested a an old infarction. No skull fracture. Visualized paranasal sinuses and mastoid air cells are clear. IMPRESSION: 1. No acute intracranial hemorrhage. No mass effect. 2. Stable old infarction in the left frontotemporal lobe Reviewed, dictated and finalized at location Q.
--- NOTE | ~2025-01-28 | XR_ITS ---
EXAMINATION: XR chest 1V portable 01/28/2025 14:23 INDICATION: Altered mental status TECHNIQUE:A single AP portable upright frontal image of the chest was obtained. COMPARISON: 02/16/2022 FINDINGS: Cardiomediastinal silhouette is enlarged, unchanged. No pneumothorax. No pleural effusion. No free air under the diaphragm. IMPRESSION: 1: NO ACUTE CARDIOPULMONARY DISEASE. Reviewed, dictated and finalized at location Q.
--- NOTE | 2025-01-28 13:30 | ECG_ITS ---
Test Date: 2025-01-28 13:31:23 Measurements Intervals [place] Rate: 108 P: 42 ME: 132 QRS: 38 QRSD: 82 T: 60 QT: 372 QTc: 499 Interpretive Statements SINUS TACHYCARDIA VOLTAGE CRITERIA FOR LVH MINIMAL Q WAVES- INFERIOR LEADS BORDERLINE ST-T WAVE ABNORMALITY- ANTERIOR LEADS ABNORMAL ECG Compared to ECG 10/18/2024 14:42:15 HEART RATE HAS INCREASED Electronically Signed On 01-28-2025 14:25:34 CDT by Ronny Woods D.O.
--- OUTSIDE RECORDS SUMMARY | 2025-01-28 13:31 | XMS_ITS | Clinical Summary ---
Author Organization [facility] Address [address] [place] [address] Care Team Providers Care Wheel Press Clerk Name Role Phone Alethea Roberto Amando DUFFY Unavailable [phone] Yvette Cunningham MD Primary Care Provider [phone] Allergies Active Allergy Reactions Criticality Noted Date [...] Major depression with psychotic features (CMS/ C [facility]) 11/03/2024 Failure to thrive in adult 11/02/2024 Spinal arachnoid cyst 08/07/2023 Cervical radiculopathy 01/25/2023 Lumbar radiculopathy 12/28/2022 HTN (hypertension) 08/30/2022 Mixed hyperlipidemia 02/18/2017 Type 2 diabetes mellitus wit h stage 3a chronic kidney disease, with long-term current use of insulin ([facility]) 02/18/2017 Resolved Problems Problem Noted Date Diagnosed Date Resolved Date Passive suicidal ideations 11/03/2024 0 11/05/2024 Left hip pain 09/22/2024 11/03/2024 Physical deconditioning 04/29/2024 06/0 08/2024 Acute hypoxic respiratory fa ilure ([facility]) 04/11/2024 11/03/2024 Back pain 08/17/2023 11/03/2024 HCAP (healthcare-associated pneumonia) 02/28/2022 11/03/2024 Pneumonia 02/28/2022 11/03/2024 Closed displaced fracture of shaft of fifth metacarpal bone of right hand, initial encounter 02/19/2022 11/03/2024 Acute ischemic stroke ([facility]) 04/14/2021 11/03/2024 Pain in right elbow 12/15/2020 11/04/19 25 Encounters Date Type Department Care Team Description 11/13/2024 12:00 PM CDT Home Care Visit [address] [place] [address] [place] [address] Zenaiad Harper RN SN NON ADMIT SOC 11/12/2024 1:01 PM CDT - 11/12/2024 11:59 PM CDT Hospital Encounter [facility] [address] [place] [place] [address] Yvette Cunningham MD Overberg, Rachel, PA Discharge Disposition: Home or Self Care (Routine Discharge) 11/12/2024 12:59 PM CDT - 11/12/2024 1:00 PM CDT Hospital Encounter [facility] [address] [place] [address] Yvette Cunningham MD Discharge Disposition: Home or Self Care (Routine Discharge) 11/12/2024 Orders Only [facility] [address] [place] [address] Eleni Gtz PA 11/12/2024 Travel 11/09/2024 11:30 AM CDT Home Care Visit [address] [place] [address] [place] [address] Zenaida Harper RN SN NON ADMIT SOC 11/02/2024 1:00 PM CDT - 11/05/2024 1:43 PM CDT Hospital Encounter [facility] [address] [place] [address] Beulah Parra MD Wheeler, Erin M, MD Fatigue; Altered Mental Status Discharge Disposition: Home or Self Care (Routine Discharge) 11/02/2024 Travel from Last 3 Months Family History [...] Recorded In the past 12 months has [facility] [employer], gas, oil, or water [employer] threatened to shut off services in your [...] often do you attend chur ch or yazdanism services? Patient declined 04/11/2024 Do you belong to any clubs o r organizations such as jain groups, unions, fraternal or athletic groups, or [...] and heating? Not hard at all 11/02/2024 [facility] of Occupat ional Health - Occupational Stress [...] place to sleep or slept in a long-term (including now)? No 08/07/2023 Housing Stability Vital Sign Answer Don e Recorded In the last 12 months, was t here a time when you were not able to pay the mortgage or rent on time? No 11/02/2024 In the past 12 months, how m any times have you moved where you were living? 0 11/02/2024 At any time in the past 12 m [facility], were you homeless or living in a long-term (including now)? No 11/02/2024 Comments No Sex and Gender Information Value Date Recorded Sex Assigned at Female 06/16/2024 3:02 PM MEDICAL RECORDS SPECIALIST Legal Sex Female 10:13 AM CDT [...] Recommended Domains Addressed Status Status Reason/Outcome Date/Time [facility] Crisis Services, Mental Health Education, Mental Health Evaluation, Mental Health Services Depression Recommended 12/20/2024 1:02 PM CDT Clinic, [facility] Group Home Detoxification, Mental Health Hospital Treatment, Mental Health Residential Treatment, Safe Housing: Substance Use, Severe Mental Illness Shelter, Short Term Detoxification, Sober Living Community, Substance Use Recovery Home Tobacco Use, Depression Recommended 12/20/2024 1:02 PM CDT [place] [place] Group Home Detoxification, Mental Health Hospital Treatment, Mental Health Residential Treatment, Safe Housing: Substance Use, Severe Mental Illness Shelter, Short Term Detoxification, Sober Living Community, Substance Use Recovery Home Tobacco Use, Depression Recommended 12/20/2024 1:02 PM CDT [facility] Group Home Detoxification, Mental Health Hospital Treatment, Mental Health Residential Treatment, Safe Housing: Substance Use, Severe Mental Illness Shelter, Short Term Detoxification, Sober Living Community, Substance Use Recovery Home Tobacco Use, Depression Recommended 12/20/2024 1:02 PM CDT [facility] Mental Health Hospital Treatment, Mental Health Residential Treatment, Mental Health Services, Substance Use Services Tobacco Use, Depression Recommended 12/20/2024 1:02 PM CDT [facility] Group Home Detoxification, Mental Health Hospital Treatment, Mental Health Residential Treatment, Safe Housing: Substance Use, Severe Mental Illness Shelter, Short Term Detoxification, Sober Living Community, Substance Use Recovery Home Tobacco Use, Depression Recommended 12/20/2024 1:02 PM CDT [facility] Hospital Treatment Depression Recommended 12/20/2024 1:02 PM CDT [facility] Hospital Treatment Depression Recommended 12/20/2024 1:02 PM CDT [facility] Crisis Services, Mental Health Education, Mental Health Evaluation, Mental Health Hospital Treatment, Mental Health Services Depression Recommended 12/20/2024 1:02 PM CDT from Last 12 Months Medical Devices Implanted Type Area Appellate Court Judge Device Identifier Shelf Expiration Date Model / Serial / Lot Agent Hemostatic Surgiflo 8 Ml Kit - [id number] Implanted:Qty: 2 on 08/07/2023 by William Mello MD at [facility] Sealant N/A: Spine Thoracic [employer] 09/30/2024 [id number] / / [id number] Agent Hemostatic Surgiflo 8 Ml Kit - [id number] Implanted:Qty: 1 on 08/07/2023 by William Mello MD at [facility] Sealant N/A: Spine Thoracic [employer] 09/30/2024 2994 / / [id number] 1.7mm S Locking Plate T, Narrow 10 Holes Implanted:Qty: 1 on 02/21/2022 by Jamli Lyons MD at [facility] Right: Hand [employer] [id number] / / 1.7 X 11 Locking Screw Implanted:Qty: 2 on 02/21/2022 by Jamil Lyons MD at [facility] Right: Hand [employer] [id number] / / 1.7 X 9 Locking Screw Implanted:Qty: 1 on 02/21/2022 by Jamil Lyons MD at [facility] Right: Hand [employer] [id number] / / 1.7 X 7 Locking Screw Implanted:Qty: 2 on 02/21/2022 by Jamil Lyons MD at [facility] Right: Hand [employer] [id number] / / 1.7 X 6 Locking Screw Implanted:Qty: 1 on 02/21/2022 by Jamil Lyons MD at [facility] Right: Hand [employer] [id number] / / Variax 2 Non-Locking Screw 1.7mm X 7mm Implanted:Qty: 1 on 02/21/2022 by Jamil Lyons MD at [facility] Right: Hand [employer] [id number] / / Variax 2 Non-Locking Screw 1.7mm X 8mm Implanted:Qty: 1 on 02/21/2022 by Jamil Lyons MD at [facility] Right: Hand [employer] [id number] / / Vistaseal Fibrin Sealant Implanted:Qty: 1 on 08/07/2023 by William Mello MD at [facility] N/A: Spine Thoracic [employer] [id number] 08/16/2023 [id number] / [id number] / [id number] Explanted [address] Area Appellate [address] Judge Device Identifier Shelf Expiration Date Model / Serial / Lot 1.4 X 27mm, Ao Twist Drill Explanted:Qty: 1 on 02/21/2022 by Jamil Lyons MD at [facility] Right: Hand [employer] [id number] / / Procedures Procedure Name Priority Date/Time [...] W/DIFF AUTOMATED STAT 11/02/2024 1:46 PM CDT HEMOGLOBIN, GLYCOSYLATED Routine 04/11/2024 11:15 PM MEDICAL RECORDS SPECIALIST HEPATITIS PANEL,ACUTE STAT 08/17/2023 6:53 PM CDT MG SCREENING W SREE JUAN DIGI Routine 03/22/2023 10:16 AM CDT Visit for screening mammogram from Last 3 Months or Most Recently Relevant to Health Maintenance Results * VITAMIN B-12 (11/12/2024 1:58 PM CDT) VITAMIN B12 S/P/B 545 193 - 986 PG/ML 11/12/2024 8:07 PM CDT [facility] 11/12/2024 1:58 PM CDT us Eleni [facility] Final Result [facility] [address] [place] [address], [id number] * CT LUNG SCREENING (11/12/2024 1:33 PM [...] 6:14 AM Narrative 11/18/2024 6:15 AM CDT [address] [place] [address] Examination: CT LUNG SCREENING Exam time: 11/12/2024 [...] Procedure Note Shade Kumar MD - 11/18/2024 [address] [place] [address] Examination: CT LUNG SCREENING Exam time: 11/12/2024 [...] - 99 MG/DL 11/05/2024 1:44 PM CDT [facility] 11/05/2024 11:4 8 AM CDT Yvette Cunningham MD POCT ORDERABLES - DEVICE Final Result [facility] [place] [address], * (ABNORMAL) COMPREHENSIVE METABOLIC PANEL (11/05/2024 5:41 AM CDT) Only the most recent of3 resultswithin the time period is included. SODIUM S/P/B 141 136 - 145 MMOL/L 11/05/2024 6:07 AM CDT [facility] POTASSIUM S/P/B 3.3(L) 3.5 - 5.1 MMOL/L 11/05/2024 6:07 AM CDT [facility] CHLORIDE S/P/B 103 98 - 107 MMOL/L 11/05/2024 6:07 AM [facility] CO2 28.1 21.0 - 32.0 MMOL/L 11/05/2024 6:07 AM [facility] GLUCOSE 230(H) 70 - 99 MG/DL 11/05/2024 6:07 AM [facility] Comment: FASTING GLUCOSE 100 TO 125 MG/DL IS CONSISTENT WITH IMPAIRED FASTING GLUCOSE. FASTING GLUCOSE >125 MG/DL IS CONSISTENT WITH DIABETES. RANDOM GLUCOSE >200 MG/DL WITH HYPERGLYCEMIC SYMPTOMS IS CONSISTENT WITH DIABETES. PER ADA GUIDELINES BUN 11 6 - 24 MG/DL 11/05/2024 6:07 AM [facility] CREATININE S/P/B 0.95 0.55 - 1.02 MG/DL 11/05/2024 6:07 AM [facility] CALCIUM S/P/B 9.3 8.4 - 10.5 MG/DL 11/05/2024 6:07 AM [facility] BILIRUBIN TOTAL S/P/B 0.5 0.2 - 1.0 MG/DL 11/05/2024 6:07 AM [facility] Comment: THIS ASSAY IS NOT RECOMMENDED FOR PATIENTS UNDERGOING TREATMENT WITH ELTROMBOPAG DUE TO THE POTENTIAL FOR FALSELY ELEVATED RESULTS. ALKALINE PHOSPHATASE S/P/B 140(H) 50 - 130 U/L 11/05/2024 6:07 AM [facility] AST 11(L) 15 - 37 U/L 11/05/2024 6:07 AM [facility] ALT 15 14 - 59 U/L 11/05/2024 6:07 AM [facility] TOTAL PROTEIN S/P/B 6.7 6.4 - 8.2 G/DL 11/05/2024 6:07 AM [facility] ALBUMIN S/P/B 3.0(L) 3.4 - 5.0 G/DL 11/05/2024 6:07 AM [facility] ANION GAP 9.9 5.0 - 15.0 MMOL/L 11/05/2024 6:07 AM CDT [facility] OSMOLALITY (CALC) 299 MOSM/KG 025 6:07 AM CDT [facility] Comment:REFERENCE RANGE NOT ESTABLISHED GFR ESTIMATE 68(L) >89 ML/MIN/1. 73 M2 11/05/2024 6:07 AM CDT [facility] GFR NOTES GFR REFERENCE S: 11/05/2024 6:07 AM CDT [facility] Comment: THE ESTIMATED GFR IS [...] us Yvette Cunningham MD LABORATORY Final Result [facility] [place] [address], * (ABNORMAL) CBC W/DIFF AUTOMATED (11/05/2024 5:41 AM CDT) Only the most recent of4 resultswithin the time period is included. WBC 10.63 4.00 - 10.80 x10'3/uL 11/05/2024 5:50 AM CDT [facility] RBC 4.71 4.10 - 5.40 x10'6/uL 11/05/2024 5:50 AM CDT [facility] HGB 12.0 12.0 - 16.0 G/DL 11/05/2024 5:50 AM CDT [facility] HCT 38.5 36.0 - 47.0 % 11/05/2024 5:50 AM CDT [facility] MCV 81.7 78.0 - 100.0 FL 11/05/2024 5:50 AM CDT [facility] MCH 25.5(L) 27.0 - 31.0 PG 11/05/2024 5:50 AM CDT [facility] MCHC 31.2(L) 33.0 - 36.0 G/DL 11/05/2024 5:50 AM CDT [facility] RDW 15.9(H) 11.5 - 14.5 % 11/05/2024 5:50 AM CDT [facility] PLT 356(H) 150 - 350 x10'3/uL 11/05/2024 5:50 AM CDT [facility] MPV 10.3 7.4 - 10.4 FL 11/05/2024 5:50 AM CDT [facility] CBC COMMENT NORMAL REFERENCE RANGE NOT ESTABLISHED FOR THE PROPORTIONAL LEUKOCYTE DIFFERENTIAL. 11/05/2024 5:50 AM CDT [facility] NEUTROPHILS % 45.5 % 11/05/2024 5:50 AM CDT [facility] LYMPHOCYTES % 35.0 % 11/05/2024 5:50 AM CDT [facility] MONOCYTES % 11.8 % 11/05/2024 5:50 AM CDT [facility] EOSINOPHILS % 5.9 % 11/05/2024 5:50 AM CDT [facility] BASOPHILS % 1.1 % 11/05/2024 5:50 AM CDT [facility] IMMATURE GRANS % 0.7 % 11/06/19 5:50 AM CDT [facility] NRBC % 0.0 % 11/05/2024 5:50 AM CDT [facility] ABS. NEUTROPHILS 4.84 1.60 - 8.30 x10'3/uL 11/05/2024 5:50 AM CDT [facility] ABS. LYMPHOCYTES 3.72 0.80 - 4.70 x10'3/uL 11/05/2024 5:50 AM CDT [facility] ABS. MONOCYTES 1.25 0.00 - 1.50 x10'3/uL 11/05/2024 5:50 AM CDT [facility] ABS. EOSINOPHILS 0.63(H) 0.00 - 0.40 x10'3/uL 11/05/2024 5:50 AM CDT [facility] ABS. BASOPHILS 0.12 0.00 - 0.20 x10'3/uL 11/05/2024 5:50 AM CDT [facility] ABS. IMMATURE GRANULOCYTES 0.07(H) 0.00 - 0.03 x10'3/uL 11/05/2024 5:50 AM CDT [facility] ABS. NUCLEATED RBC'S 0.00 0.00 - 0.01 x10'3/uL 11/05/2024 5:50 AM CDT [facility] 11/05/2024 5:41 AM CDT us Yvette Cunningham MD LABORATORY Final Result [facility] [place] [address], * MRI LUMB SPINE WO CON (11/03/2024 10:00 AM CDT) Anatomical Region Laterality Modality Spine Magnetic Resonan ce 11/03/2024 10:0 0 AM CDT Impressions 11/03/2024 10:03 AM CDT IMPRESSION: Mild to moderate multilevel lumbar spondylosis greatest at L4-5, as described above. Ordered By: BEULAH PARRA Interpreted By: Nate Aldridge MD, 11/03/2024 10:00 AM Narrative 11/03/2024 10:03 AM CDT [address] [place] [address] Examination: MRI LUMB SPINE WO CON, 11/03/2024 [...] Procedure Note Nate Aldridge MD - 11/03/[address] [place] [address] Examination: MRI LUMB SPINE WO [facility], 11/03/2024 10:00 AM. Technique: Multiplanar multisequence magnetic [...] - 145 MMOL/L 11/03/2024 6:17 AM CDT [facility] POTASSIUM S/P/B 4.1 3.5 - 5.1 MMOL/L 11/03/2024 6:17 AM CDT [facility] CHLORIDE S/P/B 105 98 - 107 MMOL/L 11/03/2024 6:17 AM CDT [facility] CO2 27.9 21.0 - 32.0 MMOL/L 11/03/2024 6:17 AM CDT [facility] GLUCOSE 211(H) 70 - 99 MG/DL 11/03/2024 6:17 AM CDT [facility] Comment: FASTING GLUCOSE 100 TO 125 MG/DL IS CONSISTENT WITH IMPAIRED FASTING GLUCOSE. FASTING GLUCOSE >125 MG/DL IS CONSISTENT WITH DIABETES. RANDOM GLUCOSE >200 MG/DL WITH HYPERGLYCEMIC SYMPTOMS IS CONSISTENT WITH DIABETES. PER ADA GUIDELINES BUN 7 6 - 24 MG/DL 11/03/2024 6:17 AM CDT [facility] CREATININE S/P/B 0.96 0.55 - 1.02 MG/DL 11/03/2024 6:17 AM CDT [facility] CALCIUM S/P/B 9.3 8.4 - 10.5 MG/DL 11/03/2024 6:17 AM CDT [facility] ANION GAP 7.1 5.0 - 15.0 MMOL/L 11/03/2024 6:17 AM CDT [facility] OSMOLALITY (CALC) 294 MOSM/KG 025 6:17 AM CDT [facility] Comment:REFERENCE RANGE NOT ESTABLISHED GFR ESTIMATE 67(L) >89 ML/MIN/1. 73 M2 11/03/2024 6:17 AM CDT [facility] GFR NOTES GFR REFERENCE S: 11/03/2024 6:17 AM CDT [facility] Comment: THE ESTIMATED GFR IS [...] Beulah Parra MD LABORATORY Final Resul t [facility] [address] [place] [address], * (ABNORMAL) URINALYSIS (11/02/2024 3:46 PM CDT) COLOR (U) YELLOW 11/02/2024 4:08 PM CDT [facility] TRANSPARENCY CLEAR 11/02/2024 4:08 PM CDT [facility] SPECIFIC GRAVITY (U) 1.030(H) 1.000 - 1.025 11/02/2024 4:08 PM CDT [facility] Comment:EQUAL TO OR GREATER THAN U PH 5.5 5.0 - 8.0 11/02/2024 4:08 PM CDT [facility] LEUKOCYTES (U) NEGATIVE NEGATIVE 11/02/2024 4:08 PM CDT [facility] NITRITES NEGATIVE NEGATIVE 11/02/2024 4:08 PM CDT [facility] PROTEIN RANDOM (U) 2+(A) NEGATIVE 11/02/2024 4:08 PM CDT [facility] GLUCOSE (U) TRACE(A) NEGATIVE 11/02/2024 4:08 PM CDT [facility] KETONES MG/DL (U) 2+(A) NEGATIVE 11/02/2024 4:08 PM CDT [facility] UROBILINOGEN 0.2 <1.0 EU/DL 11/02/2024 4:08 PM CDT [facility] BLOOD (U) NEGATIVE NEGATIVE 11/02/2024 4:08 PM CDT [facility] WBC/HPF OCCASIONAL(A ) 0 - 5 /HPF 11/02/2024 4:08 PM CDT [facility] RBC/HPF NONE SEEN(A) 0 - 5 /HPF 11/02/2024 4:08 PM CDT [facility] EPI/LPF 1+ /LPF 11/02/2024 4:08 PM CDT [facility] BACTERIA (U) TRACE /HPF 11/02/2024 4:08 PM CDT [facility] BILIRUBIN CONF ICTO (U) NEGATIVE NEGATIVE 11/02/2024 4:08 PM CDT [facility] URINE SPECIMEN OBTAINED BY CLEAN CATCH PROCEDURE / Unknown 11/02/2024 3:46 PM CDT us Beulah Parra MD URINE ORDERABLES Final Resu lt [facility] [address] [place] [address], [place] [phone] * CULTURE URINE (11/02/2024 3:46 PM CDT) SPEC DESCRIPTION URINE CLEAN CATCH 11/02/2024 3:46 PM CDT [facility] SPECIAL REQUESTS NO SPECIAL REQUEST 11/02/2024 3:46 PM CDT [facility] CULTURE RESULT FEW CONTAMINANTS 09/2024 6:36 AM CDT [facility] URINE SPECIMEN OBTAINED BY CLEAN CATCH PROCEDURE / Unknown 11/02/2024 3:46 PM CDT 11/02/2024 6:43 PM CDT us Beulah Parra MD MICROBIOLOGY - GENERAL ORDAmando TAYLOR Final Result [facility] [address] [place] [address], [place] [phone] [facility] [address] [place] [address], [place] [phone] * XR CHEST PORTABLE (11/02/2024 3:00 PM CDT) Anatomical Region Laterality Modality Chest Radiographic Keshia ging 11/02/2024 3:15 PM CDT Impressions 11/02/2024 3:15 PM CDT IMPRESSION: No radiographic evidence of active chest disease. Ordered By: BEULAH PARRA Interpreted By: Escobar Hernandez MD, 11/02/2024 3:15 PM Narrative 11/02/2024 3:15 PM CDT [address] [place] [address] Examination: XR CHEST PORTABLE Exam time: 11/02/2024 [...] Procedure Note Escobar Hernandez MD - 11/02/[address] [place] [address] Examination: XR CHEST PORTABLE Exam time: 11/02/2024 [...] SPEC DESCRIPTION BLOOD 11/02/2024 1:21 PM CDT [facility] SPECIAL REQUESTS NO SPECIAL REQUEST 11/02/2024 1:21 PM CDT [facility] CULTURE RESULT NO GROWTH 5 DAYS 11/07/2024 7:53 PM CDT [facility] BLOOD SPECIMEN OBTAINED FOR BLOOD CULTURE / Unknown 11/02/2024 2:24 PM CDT 11/02/2024 2:25 PM CDT Beulah Parra MD MICROBIOLOGY - GENERAL ORDE [facility] Final Result [facility] [address] [place] [address], [id number] [facility] [address] [place] [address] [place] [address], * (ABNORMAL) Blood gas, venous (11/02/2024 2:16 PM CDT) PH VENOUS 7.31(L) 7.32 - 7.43 11/02/2024 2:28 PM CDT [facility] PCO2 VENOUS 58.0 MMHG 11/02/2024 2:28 PM CDT [facility] Comment:NO REFERENCE RANGE H BEEN ESTABLISHED PO2 VENOUS <30.0 MM HG 11/02/2024 2:28 PM CDT [facility] Comment:NO REFERENCE RANGE H BEEN ESTABLISHED TOTAL CO2 VENOUS 31.0(H) 22.0 - 26.0 MMOL/L 11/02/2024 2:28 PM CDT [facility] BASE EXCESS VENOUS 1.6 MMOL/L 11/02/2024 2:28 PM CDT [facility] Comment:NO REFERENCE RANGE H BEEN ESTABLISHED O2 SAT VENOUS NOT CALCULATED % 025 2:28 PM CDT [facility] Comment:NO REFERENCE RANGE H BEEN ESTABLISHED BICARB VENOUS 29.2(H) 22.0 - 29.0 MMOL/L 11/02/2024 2:28 PM CDT [facility] O2 ADMIN VENOUS 2L 2:16 PM CDT [facility] 11/02/2024 2:16 PM CDT us Beulah Parra MD LABORATORY Final Resul t [facility] [place] [address], [place] [phone] * CT HEAD WO CON (11/02/2024 1:59 PM CDT) Anatomical Region Laterality Modality Head Computed Tomogra phy 11/02/2024 2:11 PM CDT Impressions 11/02/2024 2:13 PM CDT IMPRESSION: 1) No acute intracranial abnormality is demonstrated. Ordered By: BEULAH PARRA Interpreted By: Adolfo Saunders MD, 11/02/2024 2:11 PM Narrative 11/02/2024 2:13 PM CDT [address] [place] [address] Examination: CT HEAD WO CON Exam time: [...] Procedure Note Adolfo Saunders MD - 11/02/[address] [place] [address] Examination: CT HEAD WO CON Exam time: [...] PM CDT) 11/02/2024 1:51 PM CDT Narrative [facility] - 11/03/2024 5:11 AM CDT [address] [place] [address] Test Date: 2024-11-02 Pat Name: PRAVIN MORAES Department: 3 Room: 318 Gender: Female Childcare Attendant: : 1965 Requested By: BEULAH PARRA Order Number: [id number] Reading MD: Yang Blanco Measurements Intervals [place] Rate: 104 P: 30 SD: 132 QRS: 6 QRSD: 78 T: 39 QT: 352 QTc: 464 Interpretive Statements SINUS TACHYCARDIA MINIMAL VOLTAGE CRITERIA FOR LVH, CONSIDER NORMAL VARIANT NONSPECIFIC ST & T-WAVE ABNORMALITY ABNORMAL RHYTHM ECG Procedure Note Yang Blanco MD - 11/03/[address] [place] [address] Test Date: 2024-11-02 Pat Name: PRAVIN MORAES Department: 3 Room: 318 Gender: Female Childcare Attendant: : 1965 Requested By: BEULAH PARRA Order Number: [id number] Reading MD: Yang Blanco Measurements Intervals [place] Rate: 104 P: 30 SD: 132 QRS: 6 QRSD: 78 T: 39 QT: 352 QTc: 464 Interpretive Statements SINUS TACHYCARDIA MINIMAL VOLTAGE CRITERIA FOR LVH, CONSIDER NORMAL VARIANT NONSPECIFIC ST & T-WAVE ABNORMALITY ABNORMAL RHYTHM ECG us Beulah Parra MD ECG ORDERABLES Final Resul t Performing Organization Address City/[facility]/ZIP Co de Phone Number [facility] * LACTIC ACID W REFLEX (SEPSIS) (11/02/2024 1:46 PM CDT) LACTIC ACID VENOUS 2.0 0.4 - 2.0 MMOL/L 11/02/2024 3:04 PM CDT [facility] 11/02/2024 1:46 PM CDT us Beulah Parra MD LABORATORY Final Resul t Performing Organization Address [facility]/[place] de Phone Number [facility] [place] [address], [place] [phone] * TSH W/REFLEX (11/02/2024 1:46 PM CDT) TSH 1.324 0.358 - 3.740 uIU/ML 11/02/2024 3:06 PM CDT [facility] Comment: FREE T4 NOT INDICATED ASSAY PERFORMED BY CHEMILUMINESCENT IMMUNOASSAY METHODOLOGY USING SIEMENS DIMENSION REAGENT. PATIENT RESULTS DETERMINED BY ASSAYS FROM DIFFERENT MANUFACTURERS AND/OR BY DIFFERENT METHODS MAY NOT BE COMPARABLE. 11/02/2024 1:46 PM CDT us Beulah Parra MD LABORATORY Final Resul t Performing Organization Address [facility] Co de Phone Number [facility] [place] [address], [place] [phone] * PRO-BRAIN NATRIURETIC PEPTIDE (11/02/2024 1:46 PM CDT) PRO-B TYPE NATRIURETIC PEPTIDE 92 <125 PG/ML 11/02/2024 3:10 PM CDT [facility] Comment: CUT POINTS ESTABLISHED BY [...] LABORATORY Final Resul t Performing Organization Address City/[facility]/ZIP Co de Phone Number [facility] [address] [place] [address], * TROPONIN, QUANT (11/02/2024 1:46 PM CDT) TROPONIN I HIGH SENSITIVITY 10 0 - 51 ng/L 11/02/2024 3:10 PM CDT [facility] 11/02/2024 1:46 PM CDT us Beulah Parra MD LABORATORY Final Resul t Performing Organization Address [facility] Co de Phone Number [facility] [address] [place] [address], * (ABNORMAL) AMMONIA (11/02/2024 1:46 PM CDT) AMMONIA <10(L) 11 - 32 UMOL/L 11/02/2024 2:52 PM CDT [facility] 11/02/2024 1:46 PM CDT us Beulah Parra MD LABORATORY Final Resul t Performing Organization Address City/[facility] Co de Phone Number [facility] [address] [place] [address], * (ABNORMAL) MAGNESIUM (11/02/2024 1:46 PM CDT) MAGNESIUM 1.7(L) 1.8 - 2.4 MG/DL 11/02/2024 3:10 PM CDT [facility] 11/02/2024 1:46 PM CDT Beulah Parra MD LABORATORY Final Resul t Performing Organization Address City/[facility]/ZIP Co de Phone Number [facility] [address] [place] [address], * (ABNORMAL) LIPASE (11/02/2024 1:46 PM CDT) LIPASE 13(L) 16 - 77 UNITS/L 11/02/2024 3:10 PM CDT [facility] 11/02/2024 1:46 PM CDT Beulah Parra MD LABORATORY Final Resul t Performing Organization Address [facility] Co de Phone Number [facility] [address] [place] [address], * (ABNORMAL) SALICYLATE (11/02/2024 1:46 PM CDT) SALICYLATES 1.8(L) 2.8 - 20.0 MG/DL 11/02/2024 3:06 PM CDT [facility] 11/02/2024 1:46 PM CDT us Beulah Parra MD LABORATORY Final Resul t Performing Organization Address [facility] Co de Phone Number [facility] [address] [place] [address], * ETHANOL (11/02/2024 1:46 PM CDT) ALCOHOL S/P/B <0.003 <0.003 G/DL 11/02/2024 3:08 PM CDT [facility] 11/02/2024 1:46 PM CDT us Beulah Parra MD LABORATORY Final Resul t Performing Organization Address [facility] Co de Phone Number [facility] [address] [place] [address], [place] [phone] * CK (CPK) (11/02/2024 1:46 PM CDT) CPK 75 26 - 192 U/L 11/02/2024 3:10 PM CDT [facility] 11/02/2024 1:46 PM CDT us Beulah Parra MD LABORATORY Final Resul t Performing Organization Address [facility]/[place] de Phone Number [facility] [address] [place] [address], * (ABNORMAL) ACETAMINOPHEN (11/02/2024 1:46 PM CDT) ACETAMINOPHEN S/P/B 2.5(L) 10.0 - 30.0 MCG/ML 11/02/2024 3:06 PM CDT [facility] 11/02/2024 1:46 PM CDT us Beulah Parra MD LABORATORY Final Resul t Performing Organization Address [facility] Co de Phone Number [facility] [address] [place] [address], [place] [phone] * (ABNORMAL) HEMOGLOBIN, GLYCOSYLATED (04/11/2024 11:15 PM MEDICAL RECORDS SPECIALIST) HGB A1C 7.0(H) <5.7 % 04/12/2024 12:08 AM MEDICAL RECORDS SPECIALIST [facility] ESTIMATED AVG GLUCOSE 154(H) 74 - 114 MG/DL 04/12/2024 12:08 AM MEDICAL RECORDS SPECIALIST [facility] 04/11/2024 11:1 5 PM MEDICAL RECORDS SPECIALIST Maris Cardenas MD LABORATORY Final Result Performing Organization Address [facility] Co de Phone Number [facility] [address] [place] [address], [phone] * HEPATITIS PANEL,ACUTE (08/17/2023 6:53 PM CDT) HEPATITIS B SURFACE AG NON-REACT MYCHAL NON-REACT MYCHAL 08/17/2023 8:17 PM CDT [facility] Comment:HBsAg NOT DETECTED. HEP B CORE IGM NON-REACT MYCHAL NON-REACT MYCHAL 08/17/2023 8:17 PM CDT [facility] Comment: IgM ANTI HBc NOT DETECTED. DOES NOT EXCLUDE THE POSSIBILITY OF EXPOSURE TO OR INFECTION WITH HBV. NO RETEST REQUIRED. HIGH DOSES OF BIOTIN MAY INTERFERE WITH THIS TEST RESULT. CORRELATION TO CLINICAL HISTORY AND PRESENTATION RECOMMENDED. HAV IGM NON-REACT MYCHAL NON-REACT MYCHAL 08/17/2023 8:17 PM CDT [facility] Comment: IgM ANTI HAV NOT DETECTED. DOES NOT EXCLUDE THE POSSIBILITY OF EXPOSURE TO OR INFECTION WITH HAV. LEVELS OF IgM ANTI HAV MAY BE BELOW THE CUTOFF IN EARLY INFECTION. HEPATITIS C AB NON-REACT MYCHAL NON-REACT MYCHAL 08/17/2023 8:17 PM CDT [facility] Comment: ANTIBODIES TO HCV NOT DETECTED. DOES NOT EXCLUDE THE POSSIBILITY OF EXPOSURE TO HCV. 08/17/2023 6:53 PM CDT Wil Alexander NP LABORATORY Final Resul t Performing Organization Address City/[facility]/ZIP Co de Phone Number [facility] [address] [place] [address], [phone] * MG SCREENING W SREE JUAN DIGI [...] By: Pk Tadeo MD, 03/22/2023 10:57 AM Alethea Roberto APNP MAMMO Final Resul t from Last 3 Months or Most Recently Relevant to Health Maintenance Insurance [facility] Advance Directives * Full Code [...] 1:05 AM 04/28/2024 3:59 PM Care Teams Wheel Press Clerk Relationship Specialty Start Date End Date Yvette Cunningham MD [address] [place] [address] PCP - General FAMILY PRACTICE 07/08/24 Alethea Roberto APNP [address] [place] [address] Nurse Practitioner NURSE PRACTITIONER 03/09/21
--- OUTSIDE RECORDS SUMMARY | 2025-01-28 13:31 | XMS_ITS | Encounter Summary ---
Author Organization [facility] Address [address] [place] [address] Care Team Providers Care Value Stream Leader Name Role Phone Alethea Roberto Unavailable [phone] Alethea Roberto Primary Care Provider Yvette Cunningham MD Primary Care Provider [phone] Encounter Details Date Type Department Care Team (Late st Contact Info) Description 11/29/2021 [employer] Message [facility] Patient Accounts [address] [place] [address] [facility] Provider Payment Plan - past due Social [...] Assigned at Female 06/16/2024 3:02 PM STOCK MANAGER Legal Sex Female 10:13 AM CDT [...] Rule Out 04/10/2024 04/10/2024 04/10/2024 12:09 PM STOCK MANAGER COVID-19 Rule Out 10/02/2024 10/02/2024 10/02/2024 1:17 PM CDT documented as of this encounter Care Teams Value Stream Leader Relationship Specialty Start Date End Date Alethea Roberto APNP [address] [place] [address] PCP - General NURSE PRACTITIONER 02/18/23 07/07/24 Yvette Cunningham MD [address] [place] [address] PCP - General FAMILY PRACTICE 07/08/24 Alethea Roberto APNP [address] [place] [address] Nurse Practitioner NURSE PRACTITIONER 03/09/21 documented as of this encounter
--- OUTSIDE RECORDS SUMMARY | 2025-01-28 13:31 | XMS_ITS | Encounter Summary ---
Author Organization [facility] Address [address] [place] [address] Care Team Providers Care Line Installer Name Role Phone Jed Gale MD Primary Care Provider [phone] Alethea Roberto Primary Care Provider Alethea Roberto Unavailable [phone] Alethea Roberto Primary Care Provider Yvette Cunningham MD Primary Care Provider [phone] Encounter Details Date Type Department Care Team (Late st Contact Info) Description 11/08/2018 Abstract [facility]FL CONVERSION [address] [place] [address] , Generic Conversion, Social History Tobacco Use Types Packs/Day Years Used Date Smoking Tobacco: Never Assessed Comments Unknown Sex and Gender Information Value Date Recorded Sex Assigned at Female 06/16/2024 3:02 PM SLAG PRODUCTION WORKER Legal Sex Female 10:13 AM CDT Gender Identity Not on file Sexual Orientation Not on file documented as of this encounter Plan of Treatment Not on file documented as of this encounter Visit Diagnoses Not on filedocumented in this encounter Additional Health Concerns Infection Onset Date Last Indicated Resolved Time COVID-19 Rule Out 05/06/2020 05/06/2020 05/06/2020 2:48 PM SLAG PRODUCTION WORKER COVID-19 Rule Out 10/29/2020 10/29/2020 10/29/2020 7:37 PM CDT COVID-19 Rule Out 02/28/2022 02/28/2022 02/28/2022 10:20 AM CDT COVID-19 Rule Out 04/10/2024 04/10/2024 04/10/2024 12:09 PM SLAG PRODUCTION WORKER COVID-19 Rule Out 10/02/2024 10/02/2024 10/02/2024 1:17 PM CDT documented as of this encounter Care Teams Line Installer Relationship Specialty Start Date End Date Jed Gale MD [address] [place] [address] PCP - General FAMILY PRACTICE 03/02/19 05/05/20 Alethea Roberto APNP [address] [place] [address] PCP - General NURSE PRACTITIONER 05/06/20 03/08/21 Alethea Roberto APNP [address] [place] [address] PCP - General NURSE PRACTITIONER 02/18/23 07/07/24 Yvette Cunningham MD [address] [place] [address] PCP - General FAMILY PRACTICE 07/08/24 Alethea Roberto APNP [address] [place] [address] Nurse Practitioner NURSE PRACTITIONER 03/09/21 documented as of this encounter
--- OUTSIDE RECORDS SUMMARY | 2025-01-28 13:31 | XMS_ITS | Clinical Summary ---
Author Organization [facility] Address [address] [place] [address] Care Team Providers Care Cork Cutter Name Role Phone Pardeep Alethea OROZCO Primary Care Provider [phone] Allergies Active Allergy Reactions Criticality Noted Date [...] 2 (two) times a day 5 Active cyclobenzaprine (FLEXERIL) 10 mg tablet Take 1 tablet (10 mg total) by mouth 2 (two) times a day as needed for muscle spasms 1 in am, 2 in PM Active clonazePAM (KlonoPIN) 0.5 mg tablet 1 025 Discontin ued(Thera py completed ) hydrOXYzine (ATARAX) 50 mg tablet Take 1 tablet (50 mg total) by mouth every 6 (six) hours as needed 1 025 Discontin ued(Thera py completed ) dulaglutide (Trulicity) 3 mg/0.5 mL pen injectorIndication [...] mg/dL Assessment & Plan (05/01/2023 9:38 AM 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 No changes made to insulin pump. 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 Download reviewed. Type of insulin pump- SpinX [employer] 630G Pump settings : Basal 2units IC [...] 02/18/2017 Assessment & Plan (05/01/2023 9:38 AM DEPUTY OF COUNTER INTELLIGENCE): This is a chronic condition which is [...] prescribed. Assessment & Plan (06/28/2021 2:03 PM DEPUTY OF COUNTER INTELLIGENCE): This is a chronic condition which is at goal. Goal is less than 70. Personally reviewed lipid panel. ldl-43 on crestor. Encouraged to eat healthy, include fresh fruits and vegetables daily and avoid eating fried foods more than once per week. Encouraged to take medications as prescribed. Assessment & Plan (05/11/2021 1:12 PM DEPUTY OF COUNTER INTELLIGENCE): This is a chronic condition which is at goal. Goal is less than 70. Personally reviewed lipid panel. ldl-43 on crestor. Encouraged to eat healthy, include fresh fruits and vegetables daily and avoid eating fried foods more than once per week. Encouraged to take medications as prescribed. Hypertension associated with type 2 diabetes kate litus 02/18/2017 Assessment & Plan (05/11/2021 1:11 PM DEPUTY OF COUNTER INTELLIGENCE): This is a chronic condition which is [...] 02/18/2017 Assessment & Plan (05/01/2023 9:35 AM DEPUTY OF COUNTER INTELLIGENCE): This is a chronic condition which is [...] eye exam was [facility] [place] Monofilament foot exam completed. protective senses intact [...] worsening and not at goal. Personally reviewed I4y-loqmxofta to 9% not at goal less than 7% Personally reviewed blood sugar -129, not at goal 80-180 Medication- Continue Medtronic insulin pump. continue Trulicity 3mg weekly Monitor blood sugar continuously with TravelPi[employer] jennie 2 Encouraged annual eye exam. Monofilament [...] which is not at goal. Personally reviewed [id number]-[id number] to 9% not at goal less than [...] CVA Assessment & Plan (06/28/2021 2:00 PM DEPUTY OF COUNTER INTELLIGENCE): This is a chronic condition which is [...] CVA Assessment & Plan (05/11/2021 1:09 PM DEPUTY OF COUNTER INTELLIGENCE): This is a chronic condition which is [...] scheduled Assessment & Plan (06/28/2021 2:04 PM DEPUTY OF COUNTER INTELLIGENCE): Improving. 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 Seeing speech therapy. Give extra time to allow her to get her words out Encounters Date Type Department Care Team Description 01/12/2025 8:39 AM CDT - 01/12/2025 11:59 PM CDT Hospital Encounter [facility] at the [facility] Medicine [facility] [address] [place] [address] Ruddy Mcclain MD Lumbar spondylosis (Primary Dx) Discharge Disposition: Discharge to home or self care 12/31/2024 1:00 PM CDT Office Visit [facility] Diabetes Endocrine Care at [address] [address] Harleen Butler, ERNESTO Type 2 diabetes mellitus [...] adult 12/22/2024 7:50 AM CDT Office Visit [facility] Medicine Orthopaedic Surgery [facility] 6th [place] [address] [place] [address] Walter Patel MD Low back pain, unspecified back pain laterality, unspecified chronicity, unspecified whether sciatica present (Primary Dx); Spinal stenosis, unspecified spinal region; Low back pain with left-sided sciatica, unspecified back pain laterality, unspecified chronicity 12/22/2024 7:15 AM CDT - 12/22/2024 11:59 PM CDT Hospital Encounter [facility]) [address] [place] [address] Low back pain, unspecified back pain laterality, unspecified chronicity, unspecified whether sciatica present Discharge Disposition: Discharge to home or self care 12/22/2024 Orders Only [facility] Orthopaedic Surgery [address] [place] [address] for Advanced Medicine 6th [place] [address] [place] [address] Walter Patel MD Low back pain with left-sided sciatica, unspecified back pain laterality, unspecified chronicity (Primary Dx); Spinal stenosis, unspecified spinal region; Cyst of lumbar facet joint 12/09/2024 10:21 AM CDT - 12/09/2024 11:59 PM CDT Hospital Encounter [facility] ([facility]) [address] [place] [address] Discharge Disposition: Discharge to home or self care 12/09/2024 10:21 AM CDT - 12/09/2024 11:59 PM CDT Hospital Encounter [facility]) [address] [place] [address] Discharge Disposition: Discharge to home or self care 12/09/2024 10:20 AM CDT - 12/09/2024 11:59 PM CDT Hospital Encounter [facility]) [address] [place] [address] Discharge Disposition: Discharge to home or self care 12/09/2024 10:19 AM CDT - 12/09/2024 11:59 PM CDT Hospital Encounter [facility]) [address] [place] [address] Discharge Disposition: Discharge to home or self care 12/09/2024 10:19 AM CDT - 12/09/2024 11:59 PM CDT Hospital Encounter [facility]) [address] [place] [address] Discharge Disposition: Discharge to home or self care 12/09/2024 Telephone [facility] Medicine Orthopaedic Surgery [address] [place] [phone] Goodwin Appointment Questions [...] on file Legal Sex Female 4:58 PM DEPUTY OF COUNTER INTELLIGENCE Gender Identity Not on file Sexual Orientation [...] 2) 2013 Albumin Creatinine Ratio, Urine 12/20/2023 , 02/18/2017 [...] Chronic Pain Care Plan Chronic Care Management Sherly Rajan, RN Note: Problem: Chronic Pain Goals: 1. [...] 5.6 % Blood 12/31/2024 1:08 PM CDT Harleen Butler PUMPER GAUGER POINT OF CARE TEST ORDERABLES F inal Result * POCT glucose (12/31/2024 1:07 PM CDT) Glucose Blood, POC 151 Normal Fasting 70 - 100, Random <200 mg/dL Blood 12/31/2024 1:07 PM CDT Harleen Butler PUMPER GAUGER POINT OF CARE TEST ORDERABLES F inal [...] only and have not been reviewed by [facility]. There will be no report generated by a [facility] Radiologist. Narrative RAD_PACS_BJ - 12/09/2024 10:21 AM CDT EXAMINATION: Images For Reference Purposes Only Walter Patel MD IMG XR PROCEDURES Fi nal Result Performing Organization Address [facility] Co de Phone Number [email or web address] * Neuro CT Outside Reference (12/09/2024 10:21 AM CDT) Impressions RAD_PACS_[facility] - 12/09/2024 10:21 AM CDT These images are for Reference purposes only and have not been reviewed by [facility]. There will be no report generated by a [facility] Radiologist. Narrative RAD_PACS_BJ - 12/09/2024 10:21 AM CDT EXAMINATION: Images For Reference Purposes Only Walter Patel MD IMG CT PROCEDURES Fi nal Result Performing Organization Address City/[facility] Co de Phone Number [email or web address] * Neuro MR Outside Reference (12/09/2024 10:20 AM CDT) Impressions RAD_PACS_[facility] - 12/09/2024 10:20 AM CDT These images are for Reference purposes only and have not been reviewed by [facility]. There will be no report generated by a [facility] Radiologist. Narrative RAD_PACS_BJ - 12/09/2024 10:20 AM CDT EXAMINATION: Images For Reference Purposes Only Result [facility] Walter Patel MD IMG MRI PROCEDURES F inal Result Performing Organization Address [facility] de Phone Number [email or web address] * Neuro MR Outside Reference (12/09/2024 10:19 AM CDT) Impressions RAD_PACS_EULALIA - 12/09/2024 10:19 AM CDT These images are for Reference purposes only and have not been reviewed by [facility]. There will be no report generated by a [facility] Radiologist. Narrative RAD_PACS_EULALIA - 12/09/2024 10:19 AM CDT EXAMINATION: Images For Reference Purposes Only Walter Patel MD IMG MRI PROCEDURES F inal Result Performing Organization Address [facility] de Phone Number [email or web address] * Neuro MR Outside Reference (12/09/2024 10:19 AM CDT) Impressions RAD_PACWendy_EULALIA - 12/09/2024 10:19 AM CDT These images are for Reference purposes only and have not been reviewed by [facility]. There will be no report generated by a [facility] Radiologist. Narrative RAD_PACS_EULALIA - 12/09/2024 10:19 AM CDT EXAMINATION: Images For Reference Purposes Only Result [facility] Walter Patel MD IMG MRI PROCEDURES F inal Result Performing Organization Address [facility] de Phone Number [email or web address] * Diabetic Eye Exam (03/26/2023) 03/26/2023 Historical Provider HEALTH MAINTENANCE Final Result * Albumin Creatinine Ratio, Urine (12/19/2022) Pathologist [facility] SCRIBED Creatinine, Urine 54.6 - - - [facility] SCRIBED Microalbumin 12.1 - - - [facility] SCRIBED Microalb/Creat Ratio 22 [facility] Urine 12/19/2022 [facility] Provider MD LAB URINE ORDERABLES Gauri l Result Performing Organization Address [facility] de Phone Number [facility] * Lipid panel (12/19/2022) Pathologist [facility] SCRIBED Cholesterol, Total 138 - - - [facility] SCRIBED HDL 66 - - - [facility] SCRIBED LDL 46 - - - [facility] SCRIBED Triglycerides 157 - - - [facility] Blood 12/19/2022 [facility] Provider LAB BLOOD ORDERABLES Gauri l Result Performing Organization Address [facility] de Phone Number [facility] * Comprehensive metabolic panel (12/19/2022) Pathologist [facility] SCRIBED Sodium 133 - - [...] - - [facility] SCRIBED eGFR in NonAfrican [place]er 51 - - - [facility] Blood 12/19/2022 us Historical Provider LAB BLOOD ORDERABLES Gauri napier Result [facility] from Last 3 Months or Most Recently Relevant to Health Maintenance [place] [employer] [place] Care Teams Cork Cutter Relationship Specialty Start Date End Date Alethea Roberto NP [address] [place] [address] PCP - General Family Medicine 05/01/23
--- OUTSIDE RECORDS SUMMARY | 2025-01-28 13:31 | XMS_ITS | Encounter Summary ---
Author Organization [employer] Address [address] [place] [address] Care Team Providers Care Consulting Actuary Name Role Phone Yvette Cunningham MD Primary Care Provider + Encounter Details Date Type Department Care Team (Late st Contact Info) Description 01/26/2025 External Device Data [facility] ABSTRACTION Provider, Abstract NO ADDRESS ON FILE Social History Tobacco Use Types Packs/Day Years Used Date Smoking Tobacco: Never Assessed Feeling Safe Answer Date Recorded Are you in a relationship wi th someone who hurts you emotionally and/or physically? No 12/27/2024 Food Insecurity Answer Date Recorded Patient needs follow up regardin 12/27/2024 Transportation Needs Answer Date Record ed Patient needs follow up regardin 12/27/2024 Utility Needs Answer Date Recorded Patient needs follow up regardin 12/27/2024 Comments Unknown Sex and Gender Information Value Date Recorded Sex Assigned at Not on file Legal Sex Female 4:33 PM CDT Gender Identity Not on file Sexual Orientation Not on file documented as of this encounter Plan of Treatment Not on file documented as of this encounter Visit Diagnoses Not on filedocumented in this encounter Care Teams Consulting Actuary Relationship Specialty Start Date End Date Yvette Cunningham MD [address] [place] [address] PCP - General Family Practice 12/27/24 documented as of this encounter
--- OUTSIDE RECORDS SUMMARY | 2025-01-28 13:31 | XMS_ITS | Clinical Summary ---
Author Organization [facility] Address [address] [place] [address] Phone Care Team Providers Care Registered Nurse Hh Case Manager Name Role Phone Yvette Cunningham MD Primary Care Provider + Allergies Active Allergy Reactions Criticality Noted Date Comments Sulfa (Sulfonamide Antibiotics) Hives High 12/02 Medications cyclobenzaprine HCl (CYCLOBENZAPRIN E ORAL) Take by mouth. Active saccharomyces boulardii (FLORASTOR) 250 mg Capsule Take 1 Capsule (250 mg) by mouth 2 times daily. 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 2024 Transaminitis 12/26/2024 Common bile duct obstruction 12/26/2024 Nausea vomiting and diarrhea 12/26/2024 Leukocytosis (leucocytosis) 12/26/2024 Dehydration 12/26/2024 Encounters Date Type Department Care Team Description 01/27/2025 External Device Data STL ABSTRACTION Provider, Abstract 01/26/2025 External Device Data STL ABSTRACTION Provider, Abstract 01/26/2025 External Device Data STL ABSTRACTION Provider, Abstract 12/29/2024 External Device Data STL ABSTRACTION Provider, Abstract 12/29/2024 External Device Data STL ABSTRACTION Provider, Abstract 12/29/2024 External Device Data STL ABSTRACTION Provider, Abstract 12/28/2024 Telephone [facility] GASTROENTEROLOGY - [address] [facility] [address] [address] [address] [facility] [address] [place] [address] Rocio Katz, INTERIOR DESIGN TEACHER Referral (Once discharged, repeat LFTs one week after discharge/If LFTs continuing to increase or still elevated plan for outpatient EUS+/-ERCP) 12/27/2024 Travel 12/26/2024 7:49 PM CDT - 12/28/2024 3:07 PM CDT Hospital Encounter [facility] [address] [place] [address] Nish Hester, Abby Alejandra, Darby Klein MD Common bile duct obstruction (CMS/HCC) Discharge [...] of3 resultswithin the time period is included. [facility] WBC 12.0(H) 4.0 - 9.8 K/uL 12/28/2024 10:48 AM CDT [facility] RBC 4.66 3.90 - 4.90 M/uL 12/28/2024 10:48 AM CDT [facility] HEMOGLOBIN 12.2 11.8 - 14.8 g/dL 12/28/2024 10:48 AM CDT [facility] HEMATOCRIT 39.5 35.5 - 44.0 % 12/28/2024 10:48 AM CDT [facility] MCV 84.8 82.0 - 99.0 fL 12/28/2024 10:48 AM CDT [facility] MCH 26.2(L) 27.2 - 32.6 pg 12/28/2024 10:48 AM CDT [facility] MCHC 30.9(L) 31.5 - 35.5 g/dL 12/28/2024 10:48 AM CDT [facility] RDW 18.6(H) 11.5 - 14.5 % 12/28/2024 10:48 AM CDT [facility] RDW-STDEV 57.3(H) 37.1 - 48.7 fL 12/28/2024 10:48 AM CDT [facility] PLATELETS 342 140 - 350 K/uL 12/28/2024 10:48 AM CDT [facility] MPV 10.3 9.3 - 12.4 fL 12/28/2024 10:48 AM CDT [facility] NEUTROPHILS 50 % 12/28/2024 10:48 AM CDT [facility] LYMPHOCYTES 34 % 12/28/2024 10:48 AM CDT [facility] MONOCYTES 11 % 12/28/2024 10:48 AM CDT [facility] EOSINOPHILS 5 % 12/28/2024 10:48 AM CDT [facility] BASOPHILS 1 % 12/28/2024 10:48 AM CDT [facility] IMMATURE GRANULOCYTES 0 % 12/28/2024 10:48 AM CDT [facility] NEUTROPHIL ABSOLUTE 5.99 1.90 - 7.00 K/uL 12/28/2024 10:48 AM CDT [facility] LYMPHOCYTE ABSOLUTE 4.12 0.70 - 4.50 K/uL 12/28/2024 10:48 AM CDT [facility] MONOCYTE ABSOLUTE 1.26 0.10 - 1.30 K/uL 12/28/2024 10:48 AM CDT [facility] EOSINOPHIL ABSOLUTE 0.55 0.00 - 0.70 K/uL 12/28/2024 10:48 AM CDT [facility] BASOPHILS ABSOLUTE 0.08 0.00 - 0.20 K/uL 12/28/2024 10:48 AM CDT [facility] IMMATURE GRANULOCYTES ABSOLUTE 0.03 0.00 - 0.03 K/uL 12/28/2024 10:48 AM CDT [facility] Blood Venipuncture / Unknown 12/28/2024 10:27 AM CDT 12/28/2024 10:46 AM CDT Rocio Katz NP HEMATOLOGY ORDERABLES Final Result [facility] CLIA# [id number] [place] [address] * (ABNORMAL) COMPREHENSIVE METABOLIC PANEL (12/28/2024 10:27 AM CDT) Only the most recent of2 resultswithin the time period is included. SODIUM 138 136 - 145 mmol/L 12/28/2024 11:14 AM CDT [facility] POTASSIUM 3.7 3.4 - 5.1 mmol/L 12/28/2024 11:14 AM CDT [facility] CHLORIDE 103 98 - 107 mmol/L 12/28/2024 11:14 AM CDT [facility] CO2 22 22 - 29 mmol/L 12/28/2024 11:14 AM CDT [facility] CALCIUM 9.4 8.6 - 10.4 mg/dL 12/28/2024 11:14 AM CDT [facility] BUN 7 6 - 20 mg/dL 12/28/2024 11:14 AM CDT [facility] CREATININE 0.76 0.51 - 0.95 mg/dL 12/28/2024 11:14 AM CDT [facility] GLUCOSE 150(H) 74 - 99 mg/dL 12/28/2024 11:14 AM CDT [facility] TOTAL PROTEIN 6.4 6.3 - 8.7 g/dL 12/28/2024 11:14 AM CDT [facility] ALBUMIN 3.7 3.5 - 5.2 g/dL 12/28/2024 11:14 AM CDT [facility] BILIRUBIN TOTAL 0.3 0.0 - 1.1 mg/dL 12/28/2024 11:14 AM CDT [facility] ALKALINE PHOSPHATASE 326(H) 40 - 150 U/L 12/28/2024 11:14 AM CDT [facility] AST 116(H) 0 - 33 U/L 12/28/2024 11:14 AM CDT [facility] ALT 97(H) 0 - 33 U/L 12/28/2024 11:14 AM CDT [facility] GFR >60 >=60 mL/min/1.7 3 sq meter 12/28/2024 11:14 AM T [facility] Comment:eGFR calculated with 2020 CKD-EPI equation. Vegetarian diet, extremely high or low muscle mass, and may affect results. Cystatin C with Glomerular Filtration Rate is a suitable alternative for these patients. ANION GAP 13 8 - 16 mmol/L 12/28/2024 11:14 AM CDT [facility] Blood Venipuncture / Unknown 12/28/2024 10:27 AM CDT 12/28/2024 10:44 AM CDT us Rocio Katz NP CHEMISTRY ORDERABLES Final R esult [facility] [id number] [place] [address] * MRI MRCP W AND WO CONTRAST (12/28/2024 9:38 AM CDT) Anatomical Region Laterality Modality Abdomen Magnetic Resonan ce 12/28/2024 9:38 AM CDT Impressions 12/28/2024 10:50 AM CDT IMPRESSION: Nonspecific biliary duct dilatation postcholecystectomy without detectable mass or choledocholithiasis. DICTATION LOCATION: Location [address] [place] [address] Narrative 12/28/2024 10:50 AM CDT EXAMINATION: MRI [...] without detectable mass or choledocholithiasis. DICTATION LOCATION: [address] Darby Dennison MD MR ORDERABLES Final Result * US ABDOMEN LIMITED (12/27/2024 7:00 AM CDT) Anatomical Region Laterality Modality Abdomen Ultrasound 12/27/2024 7:09 AM CDT Impressions 12/27/2024 7:32 AM CDT IMPRESSION: Cholecystectomy Dilated extrahepatic common bile duct DICTATION LOCATION: [address] Narrative 12/27/2024 7:32 AM CDT ULTRASOUND [...] extrahepatic common bile duct DICTATION LOCATION: Location - [facility] Abby Keke DO US ORDERABLES Final Result * POC GLUCOSE (12/27/2024 5:10 AM CDT) GLUCOSE POC 97 74 - 99 mg/dL 12/27/2024 5:10 AM CDT [facility] POINT OF CARE SPECIMEN SOURCE, GLUCOSE POC Whole Blood 12/27/2024 5:10 AM CDT [facility] POINT OF CARE Blood, whole 12/27/2024 5:10 AM CDT 12/27/2024 5:17 AM CDT [facility] POINT OF CARE TESTING Final Resu lt [facility] POINT OF CARE CLIA # [id number] [place] [address] * (ABNORMAL) IRON, TIBC, AND PERCENT SATURATION (12/27/2024 3:04 AM CDT) IRON 22(L) 37 - 145 ug/dL 12/28/2024 11:49 AM CDT [facility] TIBC 330 265 - 497 ug/dL 12/28/2024 11:49 AM CDT [facility] IRON % SATURATION 7(L) 20 - 55 % 12/28/2024 11:49 AM CDT [facility] TRANSFERRIN 260 200 - 360 mg/dL 12/28/2024 11:49 AM CDT [facility] Blood Venipuncture / Unknown 12/27/2024 3:04 AM CDT 12/27/2024 3:42 AM CDT Rocio Katz INTERIOR DESIGN TEACHER CHEMISTRY ORDERABLES Final R [facility] Performing Organization Address City/[facility]/ZIP Co de Phone Number [facility]# [id number] [place] [address] * FERRITIN (12/27/2024 3:04 AM CDT) Pathologist [facility] FERRITIN 29.5 13.0 - 150.0 ng/mL 12/28/2024 11:49 AM CDT [facility] Blood Venipuncture / Unknown 12/27/2024 3:04 AM CDT 12/27/2024 3:42 AM CDT Rocio Katz INTERIOR DESIGN TEACHER CHEMISTRY ORDERABLES Final [facility] Performing Organization Address City/[facility] Co de Phone Number [facility] [id number] [place] [address] * BASIC METABOLIC PANEL (12/27/2024 3:04 AM CDT) Pathologist [facility] SODIUM 139 136 - 145 mmol/L 12/27/2024 4:19 AM CDT [facility] POTASSIUM 3.5 3.4 - 5.1 mmol/L 12/27/2024 4:19 AM CDT [facility] CHLORIDE 104 98 - 107 mmol/L 12/27/2024 4:19 AM CDT [facility] CO2 22 22 - 29 mmol/L 12/27/2024 4:19 AM CDT [facility] CALCIUM 8.6 8.6 - 10.4 mg/dL 12/27/2024 4:19 AM CDT [facility] BUN 9 6 - 20 mg/dL 12/27/2024 4:19 AM CDT [facility] CREATININE 0.82 0.51 - 0.95 mg/dL 12/27/2024 4:19 AM CDT [facility] GLUCOSE 86 74 - 99 mg/dL 12/27/2024 4:19 AM CDT [facility] GFR >60 >=60 mL/min/1.7 3 sq meter 12/27/2024 4:19 AM CDT [facility] Comment:eGFR calculated with 2020 CKD-EPI equation. Vegetarian diet, extremely high or low muscle mass, and may affect results. Cystatin C with Glomerular Filtration Rate is a suitable alternative for these patients. ANION GAP 13 8 - 16 mmol/L 12/27/2024 4:19 AM CDT [facility] Blood Venipuncture / Unknown 12/27/2024 3:04 AM CDT 12/27/2024 3:42 AM CDT us Abby Davies DO CHEMISTRY ORDERABLES Final Resul t [facility] CLIA# [id number] [address] [place] [address] * EKG 12-LEAD (12/26/2024 10:31 PM CDT) 12/26/2024 10:3 1 PM CDT Narrative INTERFACE SYSTEM - 12/27/2024 1:19 [place] [address] Test Date: 2024-12-26 Pat Name: PRAVIN MORAES Department: 98 Room: [address] [place] [address] Gender: Female Fresh Foods Technician: ST2 : 1965 Requested By: NISH HESTER Order Number: [id number] Reading MD: Chavo Iraheta Measurements Intervals [place] Rate: 100 P: 35 AK: 118 QRS: 14 QRSD: 72 T: 82 QT: 340 QTc: 438 Interpretive Statements Normal sinus rhythm Nonspecific ST and T wave abnormality Abnormal ECG No previous ECG available for comparison Electronically Signed On 12-27-2024 13:19:59 CDT by Edward Coverstone Procedure Note Provider, Historical - 12/27/2024 [place] [address] Test Date: 2024-12-26 Pat Name: PRAVIN MORAES Department: 98 Room: 5216 01 Gender: Female Fresh Foods Technician: ST2 : 1965 Requested By: NISH HESTER Order Number: [id number] Reading MD: Chavo Iraheta Measurements Intervals [place] Rate: 100 P: 35 AK: 118 QRS: 14 QRSD: 72 T: 82 QT: 340 QTc: 438 Interpretive Statements Normal sinus rhythm Nonspecific ST and T wave abnormality Abnormal ECG No previous ECG available for comparison Electronically Signed On 12-27-2024 13:19:59 CDT by Chavo Iraheta us Abby Keke DO ECG ORDERABLES Final Result INTERFACE SYSTEM Refer to clinic/hospital department * PHOSPHORUS (12/26/2024 9:24 PM CDT) PHOSPHORUS 4.1 2.5 - 4.5 mg/dL 12/26/2024 9:59 PM CDT [facility] Blood Venipuncture / Unknown 12/26/2024 9:24 PM CDT 12/26/2024 9:29 PM CDT us Abby Keke DO CHEMISTRY ORDERABLES Final Resul t [facility] CLIA# [id number] [place] [address] * MAGNESIUM LEVEL (12/26/2024 9:24 PM CDT) MAGNESIUM 1.8 1.6 - 2.6 mg/dL 12/26/2024 9:59 PM CDT [facility] Blood Venipuncture / Unknown 12/26/2024 9:24 PM CDT 12/26/2024 9:29 PM CDT us Abby Keke DO CHEMISTRY ORDERABLES Final Resul t [facility]# [id number] [place] [address] from Last 3 Months Insurance BCBS OUT OF STATE Advance Directives For more information, please contact: [phone] * Full Code (Latest Code Status on File) Date Activated Date Inactivated Comments 12/26/2024 9:08 PM 12/28/2024 5:17 PM Care Teams Registered Nurse Hh Case Manager Relationship Specialty Start Date End Date Yvette Cunningham MD [address] [place] [address] PCP - General Family Practice 12/27/24
--- OUTSIDE RECORDS SUMMARY | 2025-01-28 13:31 | XMS_ITS | Encounter Summary ---
Author Organization [facility] Address [address] [place] [address] Care Team Providers Care Outboard Motors Experimental Mechanic Name Role Phone Yvette Cunningham MD Primary Care Provider + Encounter Details Date Type Department Care Team (Late st Contact Info) Description 01/27/2025 External Device Data [facility] ABSTRACTION [...] on filedocumented in this encounter Care Teams Outboard Motors Experimental Mechanic Relationship Specialty Start Date End Date Yvette Cunningham MD [address] [place] [address] PCP - General Family Practice 12/27/24 documented as of this encounter
--- OUTSIDE RECORDS SUMMARY | 2025-01-28 13:31 | XMS_ITS | Encounter Summary ---
Author Organization [facility] Address [address] [place] [address] Care Team Providers Care Wire Products Inspector Name Role Phone Alethea Roberto Unavailable [phone] Alethea Roberto Primary Care Provider Yvette Cunningham MD Primary Care Provider [phone] Encounter Details Date Type Department Care Team (Late st Contact Info) Description 06/17/2024 Pet Wireless Message Enc [facility] [address], [facility] [address] [place] [address] Kasey Newberry PA [address] [place] [address] Visit Follow Up Social History Tobacco Use [...] from your doctor or pharmacy? Never 04/11/2024 [facility] Utilities Answer Date Recorded In the [...] week 04/11/2024 How often do you attend [facility] or yazdanism services? Patient declined 04/11/2024 Do you belong to any clubs o r organizations such as tenriism groups, unions, fraternal or athletic groups, or [...] and heating? Not hard at all 04/11/2024 [facility] [place] of Occupat ional Health - Occupational Stress [...] any time in the past 12 m [facility], were you homeless or living in a alf (including now)? No 04/11/2024 Comments No Sex and Gender Information Value Date Recorded Sex Assigned at Female 06/16/2024 3:02 PM GRIP Legal Sex Female 10:13 AM CDT Gender [...] documented as of this encounter Care Teams Wire Products Inspector Relationship Specialty Start Date End Date Alethea Roberto APNP [address] [place] [address] PCP - General NURSE PRACTITIONER 02/18/23 07/07/24 Yvette Cunningham MD [address] [place] [address] PCP - General FAMILY PRACTICE 07/08/24 Alethea Roberto APNP [address] [place], [place] [address] [address] Nurse Practitioner NURSE PRACTITIONER 03/09/21 documented as of this encounter
--- OUTSIDE RECORDS SUMMARY | 2025-01-28 13:31 | XMS_ITS | Encounter Summary ---
Author Organization [facility] Address [address] [place] [address] Care Team Providers Care Water Filter Cleaner Name Role Phone Alethea Roberto Unavailable [phone] Alethea Roberto Primary Care Provider Yvette Cunningham MD Primary Care Provider [phone] Encounter Details Date Type Department Care Team (Late st Contact Info) Description 02/19/2022 SegundoHogar Message Enc [facility] [address], [address] [place] [address] Ericka Acosta, [facility] [address] [place] [address] [place] [address] Visit Follow Up Social History Tobacco Use [...] Sex Assigned at Female 06/16/2024 3:02 PM CHANGE RELEASE MANAGER Legal Sex Female 10:13 AM CDT [...] AM PABLOT Kylie Nuñez RN Active * [place] Suicide Severity Rating Scale (Screener/Recent Self-Report) Question [...] Rule Out 04/10/2024 04/10/2024 04/10/2024 12:09 PM CHANGE RELEASE MANAGER COVID-19 Rule Out 10/02/2024 10/02/2024 10/02/2024 1:17 PM CDT documented as of this encounter Care Teams Water Filter Cleaner Relationship Specialty Start Date End Date Alethea Roberto APNP [address] [place] [address] PCP - General NURSE PRACTITIONER 02/18/23 07/07/24 Yvette Cunningham MD [address] [place] [address] PCP - General FAMILY PRACTICE 07/08/24 Alethea Roberto APNP [address] [place] [address] Nurse Practitioner NURSE PRACTITIONER 03/09/21 documented as of this encounter
--- OUTSIDE RECORDS SUMMARY | 2025-01-28 13:31 | XMS_ITS | Encounter Summary ---
Author Organization [facility] Address [address] [place] [address] Care Team Providers Care Clinical Trial Manager Name Role Phone Alethea Roberto Primary Care Provider Alethea Roberto Unavailable [phone] Alethea Roberto Primary Care Provider Yvette Cunningham MD Primary Care Provider [phone] Encounter Details Date Type Department Care Team (Late st Contact Info) Description 12/13/2020 AppwoRxt Message Enc [facility] [address], [address] [address] Jamil Lyons MD [address] [place], [place] [id number] Visit Follow Up Social History Tobacco Use [...] Sex Assigned at Female 06/16/2024 3:02 PM PROSTHETIC LAB TECHNICIAN Legal Sex Female 10:13 AM CDT [...] Rule Out 04/10/2024 04/10/2024 04/10/2024 12:09 PM PROSTHETIC LAB TECHNICIAN COVID-19 Rule Out 10/02/2024 10/02/2024 10/02/2024 1:17 PM CDT documented as of this encounter Care Teams Clinical Trial Manager Relationship Specialty Start Date End Date Alethea Roberto APNP [address] [place] [address] PCP - General NURSE PRACTITIONER 05/06/20 03/08/21 Alethea Roberto APNP [address] [place] [address] PCP - General NURSE PRACTITIONER 02/18/23 07/07/24 Yvette Cunningham MD [address] [place] [address] PCP - General FAMILY PRACTICE 07/08/24 Alethea Roberto APNP [address] [place] [address] Nurse Practitioner NURSE PRACTITIONER 03/09/21 documented as of this encounter
--- OUTSIDE RECORDS SUMMARY | 2025-01-28 13:31 | XMS_ITS | Clinical Summary ---
Author Organization [facility] Address [address] [place] [address] Care Team Providers Care Scientific Publications Editor Name Role Phone Yvette Cunningham MD Primary Care Provider [phone] [facility],non-owned Affiliates and Associated Physician Practices is amultiple site organization consisting of ambulatory clinics and hospital sitesin [place], [place], [place] and [place]. This disclosure is being madepursuant to the Care Everywhere program and may not contain all information available regarding this patient. Last updated 18.[facility] Allergies Active Allergy Reactions Criticality Noted Date [...] daily Active Calcium Carbonate-Vit D-Min (CALCIUM 1200) 0189-4117 MG-UNIT CHEW Take 1 tablet by mouth [...] [facility] - Cardiology [address] [id number] Unique Valdivia RN Loop Recorder 11/11/2024 10:00 AM CDT Office Visit [facility] - Neurology [address] [place] [id number] Eleni Gtz PA-C Cerebrovascular accident (CVA), unspecified mechanism (HCC) (Primary Dx); Primary hypertension; Type 2 diabetes, controlled, with neuropathy (HCC); Moderate episode of recurrent major depressive disorder (HCC); Hallucinations; Cognitive dysfunction 11/11/2024 Travel 10/28/2024 Telephone [facility] - Cardiology [address] [place] [id number] Provider, No Pcp Question; Loop Recorder from [...] on file Legal Sex Female 8:31 AM ADOPTION COUNSELOR Gender Identity Not on file Sexual Orientation Not on file Last Filed Vital Signs Vital Sign Reading Time Taken Comments Blood Pressure 116/74 11/11/2024 9:37 AM CDT Pulse 96 11/11/2024 9:37 AM CDT Temperature 36.6 C (97.8 F) 04/18/2021 12:58 PM ADOPTION COUNSELOR Respiratory Rate 14 11/11/2024 9:37 AM CDT Oxygen Saturation 95% 04/18/2021 3:02 PM ADOPTION COUNSELOR Inhaled Oxygen Concentration - - Weight 77.6 kg (171 lb) 11/11/2024 9:37 AM CDT Height 154.9 cm (5' 1) 11/22/2021 9:51 AM CDT Body Mass Index 32.31 11/22/2021 9:51 AM CDT Plan of Treatment Upcoming Encounters Date Type Department Care Team (Late st Contact Info) Description 02/04/2025 1:00 AM CDT Clinical Support [facility] - Cardiology [address] [facility] [facility] [address] [place] [address] Health Maintenance Due Date Last [...] this topic Medical Devices Implanted Type Area Acoustical Logging Engineer Device Identifier Shelf Expiration Date Model / Serial / Lot Sys Crd Mntr Rvl Linq [employer] Ins - [id number] Implanted:Qty : 1 on 04/18/2021 by Maico De La Cruz MD at [facility] Loop Recorder Left: Chest Wall [employer] 01/14/2022 [employer] DISCONTINUED / [id number] / Procedures Procedure Name Priority Date/Time Associated Diagnosis Comments BASIC METABOLIC PANEL (CALCIUM TOTAL) Routine 04/18/2021 3:51 AM ADOPTION COUNSELOR HEMOGLOBIN A1C Add on 04/16/2021 9:35 AM ADOPTION COUNSELOR from Last 3 Months or Most Recently Relevant to Health Maintenance Results * (ABNORMAL) BASIC METABOLIC PANEL (CALCIUM TOTAL) (04/18/2021 3:51 AM ADOPTION COUNSELOR) BUN 7 7 - 26 mg/dL 04/18/2021 5:15 AM [facility] Creatinine 0.80 0.56 - 0.96 mg/dL 04/18/2021 5:15 AM [facility] Sodium 141 136 - 145 mmol/L 04/18/2021 5:15 AM [facility] Potassium 3.2(L) 3.5 - 4.5 mmol/L 04/18/2021 5:15 AM [facility] Chloride 105 98 - 107 mmol/L 04/18/2021 5:15 AM [facility] CO2 21(L) 22 - 29 mmol/L 04/18/2021 5:15 AM [facility] Glucose 185(H) 70 - 115 mg/dL 04/18/2021 5:15 AM [facility] Calcium 9.7 8.4 - 10.2 mg/dL 04/18/2021 5:15 AM [facility] Anion Gap 18 8 - 18 04/18/2021 5:15 AM [facility] BUN/Creatinine Ratio 9 7 - 23 04/18/2021 5:15 AM [facility] Osmolality Calculated 295 270 - 300 mOsm/kg 04/18/2021 5:15 AM [facility] eGFR by CKD-EPI 81(L) >=90 mL/min/1.7 3 m2 04/18/2021 5:15 AM [facility] Blood BLOOD SPECIMEN / Unknown Lab Venipuncture / Unknown 04/18/2021 3:51 AM ADOPTION COUNSELOR 04/18/2021 4:52 AM [facility] us Aaron Hauser MD LAB - CHEMISTRY ORDERABLES Final Result [facility] [address] [place] [address], [facility] [phone] * (ABNORMAL) HEMOGLOBIN A1C (04/16/2021 9:35 AM [facility]) Hemoglobin A1c 7.9(H) 4.4 - 6.3 % 04/16/2021 11:10 AM [facility] Estimated Average Glucose 180 mg/dL 04/16/2021 11:10 AM [facility] Comment: HbA1c Interpretation: Treatment target values recommended by ADA and other clinical organizations should be used to evaluate metabolic control in patients. Treatment Target Values: Normal : < 5.7% Pre-diabetes: 5.7-6.4% Diabetes: Equal to or greater than 6.5% Reference: [place] Diabetes Association Standards of Care in Diabetes -2014 In patients 70 years and older consider HbA1c target range of 7.0-7.5% Reference: Diabetes Mellitus in Older People: Position Statement on behalf of the International Association of Gerontology and Geriatrics (IAGG), the Diabetes Working Green Party for Older People (EDWPOP), and the International Task Force of Experts in Diabetes. Akash Saavedra et al. J [place] Medical Directors Association. 2012 Test results diagnostic of diabetes should be repeated for confirmation. The Sebia Capillary 2 assay for the measurement of HbA1c is a National Glycohemoglobin Standardization Program (NGSP)certified method. Blood BLOOD SPECIMEN / Unknown Venipuncture / Unknown 04/16/2021 9:35 AM ADOPTION COUNSELOR 04/16/2021 9:40 AM ADOPTION COUNSELOR us Aaron Hauser MD LAB - CHEMISTRY ORDERABLES Final Result [facility] [address] [place] [address], [facility] [phone] from Last 3 Months or Most Recently Relevant to Health Maintenance Insurance ANTH Advance Directives * Full Code (Latest Code Status on File) Date Activated Date Inactivated Comments 04/16/2021 12:01 AM 04/18/2021 5:09 PM Care Teams Scientific Publications Editor Relationship Specialty Start Date End Date Yvette Cunningham MD [address] [place] [address] PCP - General Family Medicine 11/11/24
[2025-01-28] MEDS: SODIUM CHLORIDE 0.9% IV 1,000 ML 999 ML IV CONT (13:47)
[2025-01-28] MEDS: ONDANSETRON INJ 4 MG/2 ML VIAL IV PUSH ×2 (13:47→14:53)
--- OUTSIDE RECORDS SUMMARY | 2025-01-28 14:16 | XMS_ITS | Encounter Summary ---
Author Organization [facility] Address [address] [place] [id number] Care Team Providers Care Pricing Clerk Name Role Phone Alethea Roberto Unavailable [phone] Alethea Roberto Primary Care Provider [phone] Yvette Cunningham MD Primary Care Provider [phone] Encounter Details Date Type Department Care Team (Late st Contact Info) Description 11/29/2021 [employer] Message [facility] Patient Accounts [address] [place] [address] [facility] Provider Payment Plan - past due [...] Sex Assigned at Female 06/16/2024 3:02 PM POLISHING MACHINE OPERATOR Legal Sex Female 10:13 AM [...] Rule Out 04/10/2024 04/10/2024 04/10/2024 12:09 PM POLISHING MACHINE OPERATOR COVID-19 Rule Out 10/02/2024 10/02/2024 10/02/2024 1:17 PM CDT documented as of this encounter Care Teams Pricing Clerk Relationship Specialty Start Date End Date Alethea Roberto APNP [address] [place] [address] PCP - General NURSE PRACTITIONER 02/18/23 07/07/24 Yvette Cunningham MD [address] [place] [address] PCP - General FAMILY PRACTICE 07/08/24 Alethea Roberto APNP [address] [place] [address] Nurse Practitioner NURSE PRACTITIONER 03/09/21 documented as of this encounter
--- OUTSIDE RECORDS SUMMARY | 2025-01-28 14:16 | XMS_ITS | Clinical Summary ---
Author Organization [facility] Address [address] [place] [address] Care Team Providers Care Application Packaging Consultant Name Role Phone Alethea Roberot Amando DUFFY Unavailable [phone] Yvette Cunningham MD Primary Care Provider [phone] Allergies Active Allergy Reactions Criticality Noted Date [...] Major depression with psychotic features (CMS/ C [facility]) 11/03/2024 Failure to thrive in adult 11/02/2024 Spinal arachnoid cyst 08/07/2023 Cervical radiculopathy 01/25/2023 Lumbar radiculopathy 12/28/2022 HTN (hypertension) 08/30/2022 Mixed hyperlipidemia 02/18/2017 Type 2 diabetes mellitus wit h stage 3a chronic kidney disease, with long-term current use of insulin ([facility]) 02/18/2017 Resolved Problems Problem Noted Date Diagnosed Date Resolved Date Passive suicidal ideations 11/03/2024 0 11/05/2024 Left hip pain 09/22/2024 11/03/2024 Physical deconditioning 04/29/2024 06/0 08/2024 Acute hypoxic respiratory fa ilure ([facility]) 04/11/2024 11/03/2024 Back pain 08/17/2023 11/03/2024 HCAP (healthcare-associated pneumonia) 02/28/2022 11/03/2024 Pneumonia 02/28/2022 11/03/2024 Closed displaced fracture of shaft of fifth metacarpal bone of right hand, initial encounter 02/19/2022 11/03/2024 Acute ischemic stroke ([facility]) 04/14/2021 11/03/2024 Pain in right elbow 12/15/2020 11/04/19 25 Encounters Date Type Department Care Team Description 11/13/2024 12:00 PM CDT Home Care Visit [address] [place] [address] [place] [address] Zenaida Harper RN SN NON ADMIT SOC 11/12/2024 1:01 PM CDT - 11/12/2024 11:59 PM CDT Hospital Encounter [facility] [address] [place] [place] [address] Yvette Cunningham MD Overberg, Rachel, PA Discharge Disposition: Home or Self Care (Routine Discharge) 11/12/2024 12:59 PM CDT - 11/12/2024 1:00 PM CDT Hospital Encounter [facility] [address] [place] [address] Yvette Cunninhgam MD Discharge Disposition: Home or Self Care (Routine Discharge) 11/12/2024 Orders Only [facility] [address] [place] [address] Eleni Gtz PA 11/12/2024 Travel 11/09/2024 11:30 AM CDT Home Care Visit [address] [place] [address] [place] [address] Zenaida Harper RN SN NON ADMIT SOC 11/02/2024 1:00 PM CDT - 11/05/2024 1:43 PM CDT Hospital Encounter [facility] [address] [place] [place] [address] Beulah Parra MD Wheeler, Erin M, MD [...] your doctor or pharmacy? Never 04/11/2024 [facility] Utilities Answer Date Recorded In the past 12 months has [facility] [employer], gas, oil, or water [employer] threatened to shut off services in your [...] often do you attend chur ch or jew services? Patient declined 04/11/2024 Do you belong to any clubs o r organizations such as orthodox groups, unions, fraternal or athletic groups, or [...] and heating? Not hard at all 11/02/2024 [facility] [place] of Occupat ional Health - Occupational Stress [...] place to sleep or slept in a jail (including now)? No 08/07/2023 Housing Stability Vital Sign Answer Don e Recorded In the last 12 months, was t here a time when you were not able to pay the mortgage or rent on time? No 11/02/2024 In the past 12 months, how m any times have you moved where you were living? 0 11/02/2024 At any time in the past 12 m [facility], were you homeless or living in a jail (including now)? No 11/02/2024 Comments No Sex and Gender Information Value Date Recorded Sex Assigned at Female 06/16/2024 3:02 PM [facility] Legal Sex Female 10:13 AM CDT Gender [...] Recommended Domains Addressed Status Status Reason/Outcome Date/Time Merged With [facility] Crisis Services, Mental Health Education, Mental Health Evaluation, Mental Health Services Depression Recommended 12/20/2024 1:02 PM CDT Clinic, [facility] Detoxification, Mental Health Hospital Treatment, Mental Health Residential Treatment, Safe Housing: Substance Use, Severe Mental Illness Longterm, Short Term Detoxification, Sober Living Community, Substance Use Recovery Home Tobacco Use, Depression Recommended 12/20/2024 1:02 PM CDT [place] [place] [facility] Detoxification, Mental Health Hospital Treatment, Mental Health Residential Treatment, Safe Housing: Substance Use, Severe Mental Illness Longterm, Short Term Detoxification, Sober Living Community, Substance Use Recovery Home Tobacco Use, Depression Recommended 12/20/2024 1:02 PM CDT [facility] Pen[facility]entiary Detoxification, Mental Health Hospital Treatment, Mental Health Residential Treatment, Safe Housing: Substance Use, Severe Mental Illness Longterm, Short Term Detoxification, Sober Living Community, Substance Use Recovery Home Tobacco Use, Depression Recommended 12/20/2024 1:02 PM CDT [facility] Mental Health Hospital Treatment, Mental Health Residential Treatment, Mental Health Services, Substance Use Services Tobacco Use, Depression Recommended 12/20/2024 1:02 PM CDT [facility] Detoxification, Mental Health Hospital Treatment, Mental Health Residential Treatment, Safe Housing: Substance Use, Severe Mental Illness Longterm, Short Term Detoxification, Sober Living Community, Substance Use Recovery Home Tobacco Use, Depression Recommended 12/20/2024 1:02 PM CDT [facility] Mental [facility] Treatment Depression Recommended 12/20/2024 1:02 PM CDT [facility] Hospital Treatment Depression Recommended 12/20/2024 1:02 PM CDT [facility] Crisis Services, Mental Health Education, Mental Health Evaluation, Mental Health Hospital Treatment, Mental Health Services Depression Recommended 12/20/2024 1:02 PM CDT from Last 12 Months Medical Devices Implanted Type Area Automatic Chief Device Identifier Shelf Expiration Date Model / Serial / Lot Agent Hemostatic Surgiflo 8 Ml Kit - [id number] Implanted:Qty: 2 on 08/07/2023 by William Mello MD at [facility] Sealant N/A: Spine Thoracic [employer] 09/30/2024 [id number] / / [id number] Agent Hemostatic Surgiflo 8 Ml Kit - [id number] Implanted:Qty: 1 on 08/07/2023 by William Mello MD at [facility] Sealant N/A: Spine Thoracic [employer] 09/30/2024 2994 / / [id number] 1.7mm S Locking Plate T, Narrow 10 Holes Implanted:Qty: 1 on 02/21/2022 by Jamil Lyons MD at [facility] Right: Hand [employer] [id number] / / 1.7 X 11 Locking Screw Implanted:Qty: 2 on 02/21/2022 by Jamil Lyons MD at [facility] Right: Hand [employer] [id number] / / 1.7 X 9 Locking Screw Implanted:Qty: 1 on 02/21/2022 by Jamil Lyons MD at [facility] Right: Hand [employer] [id number] / / 1.7 X 7 Locking Screw Implanted:Qty: 2 on 02/21/2022 by Jamil Lyons MD at [facility] Right: Hand [employer] [id number] / / 1.7 X 6 Locking Screw Implanted:Qty: 1 on 02/21/2022 by Jamil Lyons MD at [facility] Right: Hand [employer] [id number] / / Variax 2 Non-Locking Screw 1.7mm X 7mm Implanted:Qty: 1 on 02/21/2022 by Jamil Lyons MD at [facility] Right: Hand [employer] [id number] / / [employer] 2 Non-Locking Screw 1.7mm X 8mm Implanted:Qty: 1 on 02/21/2022 by Jamil Lyons MD at [facility] Right: Hand [employer] [id number] / / Vistaseal Fibrin Sealant Implanted:Qty: 1 on 08/07/2023 by William Mello MD at [facility] N/A: Spine Thoracic [employer] [id number] 08/16/2023 [id number] / [id number] / [id number] Explanted Type Area Automatic Chief Device Identifier Shelf Expiration Date Model / Serial / Lot 1.4 X 27mm, Ao Twist Drill Explanted:Qty: 1 on 02/21/2022 by Jamil Lyons MD at [facility] Right: Hand [employer] [id number] / / Procedures Procedure Name Priority Date/Time [...] CDT HEMOGLOBIN, GLYCOSYLATED Routine 04/11/2024 11:15 PM [facility] HEPATITIS PANEL,ACUTE STAT 08/17/2023 6:53 PM CDT MG SCREENING W SREE JUAN DIGI Routine 03/22/2023 10:16 AM CDT Visit for screening mammogram from Last 3 Months or Most Recently Relevant to Health Maintenance Results * VITAMIN B-12 (11/12/2024 1:58 PM CDT) VITAMIN B12 S/P/B 545 193 - 986 PG/ML 11/12/2024 8:07 PM CDT [facility] 11/12/2024 1:58 PM CDT us Eleni [facility] Final Result [facility] [address] [place] [address], [id number] * CT LUNG SCREENING (11/12/2024 1:33 PM [...] 6:14 AM Narrative 11/18/2024 6:15 AM CDT [address] [place] [address] Examination: CT LUNG SCREENING Exam time: 11/12/2024 [...] Procedure Note Shade Kumar MD - 11/18/2024 [address] [place] [address] Examination: CT LUNG SCREENING Exam time: 11/12/2024 [...] - 99 MG/DL 11/05/2024 1:44 PM CDT [facility] 11/05/2024 11:4 8 AM CDT Yvette Cunningham MD POCT ORDERABLES - DEVICE Final Result [facility] Critical access hospital[address] [place] [address], * (ABNORMAL) COMPREHENSIVE METABOLIC PANEL (11/05/2024 5:41 AM CDT) Only the most recent of3 resultswithin the time period is included. SODIUM S/P/B 141 136 - 145 MMOL/L 11/05/2024 6:07 AM CDT [facility] POTASSIUM S/P/B 3.3(L) 3.5 - 5.1 MMOL/L 11/05/2024 6:07 AM CDT [facility] CHLORIDE S/P/B 103 98 - 107 MMOL/L 11/05/2024 6:07 AM [facility] CO2 28.1 21.0 - 32.0 MMOL/L 11/05/2024 6:07 AM [facility] GLUCOSE 230(H) 70 - 99 MG/DL 11/05/2024 6:07 AM [facility] Comment: FASTING GLUCOSE 100 TO 125 MG/DL IS CONSISTENT WITH IMPAIRED FASTING GLUCOSE. FASTING GLUCOSE >125 MG/DL IS CONSISTENT WITH DIABETES. RANDOM GLUCOSE >200 MG/DL WITH HYPERGLYCEMIC SYMPTOMS IS CONSISTENT WITH DIABETES. PER ADA GUIDELINES BUN 11 6 - 24 MG/DL 11/05/2024 6:07 AM [facility] CREATININE S/P/B 0.95 0.55 - 1.02 MG/DL 11/05/2024 6:07 AM [facility] CALCIUM S/P/B 9.3 8.4 - 10.5 MG/DL 11/05/2024 6:07 AM [facility] BILIRUBIN TOTAL S/P/B 0.5 0.2 - 1.0 MG/DL 11/05/2024 6:07 AM [facility] Comment: THIS ASSAY IS NOT RECOMMENDED FOR PATIENTS UNDERGOING TREATMENT WITH ELTROMBOPAG DUE TO THE POTENTIAL FOR FALSELY ELEVATED RESULTS. ALKALINE PHOSPHATASE S/P/B 140(H) 50 - 130 U/L 11/05/2024 6:07 AM [facility] AST 11(L) 15 - 37 U/L 11/05/2024 6:07 AM [facility] ALT 15 14 - 59 U/L 11/05/2024 6:07 AM [facility] TOTAL PROTEIN S/P/B 6.7 6.4 - 8.2 G/DL 11/05/2024 6:07 AM [facility] ALBUMIN S/P/B 3.0(L) 3.4 - 5.0 G/DL 11/05/2024 6:07 AM [facility] ANION GAP 9.9 5.0 - 15.0 MMOL/L 11/05/2024 6:07 AM CDT [facility] OSMOLALITY (CALC) 299 MOSM/KG 025 6:07 AM CDT [facility] Comment:REFERENCE RANGE NOT ESTABLISHED GFR ESTIMATE 68(L) >89 ML/MIN/1. 73 M2 11/05/2024 6:07 AM CDT [facility] GFR NOTES GFR REFERENCE S: 11/05/2024 6:07 AM CDT [facility] Comment: THE ESTIMATED GFR IS [...] us Yvette Cunningham MD LABORATORY Final Result [facility] Critical access hospital[address] [place] [address], * (ABNORMAL) CBC W/DIFF AUTOMATED (11/05/2024 5:41 AM CDT) Only the most recent of4 resultswithin the time period is included. WBC 10.63 4.00 - 10.80 x10'3/uL 11/05/2024 5:50 AM CDT [facility] RBC 4.71 4.10 - 5.40 x10'6/uL 11/05/2024 5:50 AM CDT [facility] HGB 12.0 12.0 - 16.0 G/DL 11/05/2024 5:50 AM CDT [facility] HCT 38.5 36.0 - 47.0 % 11/05/2024 5:50 AM CDT [facility] MCV 81.7 78.0 - 100.0 FL 11/05/2024 5:50 AM CDT [facility] MCH 25.5(L) 27.0 - 31.0 PG 11/05/2024 5:50 AM CDT [facility] MCHC 31.2(L) 33.0 - 36.0 G/DL 11/05/2024 5:50 AM CDT [facility] RDW 15.9(H) 11.5 - 14.5 % 11/05/2024 5:50 AM CDT [facility] PLT 356(H) 150 - 350 x10'3/uL 11/05/2024 5:50 AM CDT [facility] MPV 10.3 7.4 - 10.4 FL 11/05/2024 5:50 AM CDT [facility] CBC COMMENT NORMAL REFERENCE RANGE NOT ESTABLISHED FOR THE PROPORTIONAL LEUKOCYTE DIFFERENTIAL. 11/05/2024 5:50 AM CDT [facility] NEUTROPHILS % 45.5 % 11/05/2024 5:50 AM CDT [facility] LYMPHOCYTES % 35.0 % 11/05/2024 5:50 AM CDT [facility] MONOCYTES % 11.8 % 11/05/2024 5:50 AM CDT [facility] EOSINOPHILS % 5.9 % 11/05/2024 5:50 AM CDT [facility] BASOPHILS % 1.1 % 11/05/2024 5:50 AM CDT [facility] IMMATURE GRANS % 0.7 % 11/06/19 5:50 AM CDT [facility] NRBC % 0.0 % 11/05/2024 5:50 AM CDT [facility] ABS. NEUTROPHILS 4.84 1.60 - 8.30 x10'3/uL 11/05/2024 5:50 AM CDT [facility] ABS. LYMPHOCYTES 3.72 0.80 - 4.70 x10'3/uL 11/05/2024 5:50 AM CDT [facility] ABS. MONOCYTES 1.25 0.00 - 1.50 x10'3/uL 11/05/2024 5:50 AM CDT [facility] ABS. EOSINOPHILS 0.63(H) 0.00 - 0.40 x10'3/uL 11/05/2024 5:50 AM CDT [facility] ABS. BASOPHILS 0.12 0.00 - 0.20 x10'3/uL 11/05/2024 5:50 AM CDT [facility] ABS. IMMATURE GRANULOCYTES 0.07(H) 0.00 - 0.03 x10'3/uL 11/05/2024 5:50 AM CDT [facility] ABS. NUCLEATED RBC'S 0.00 0.00 - 0.01 x10'3/uL 11/05/2024 5:50 AM CDT [facility] 11/05/2024 5:41 AM CDT us Yvette Cunningham MD LABORATORY Final Result [facility] [place] [address], * MRI LUMB SPINE WO CON (11/03/2024 10:00 AM CDT) Anatomical Region Laterality Modality Spine Magnetic Resonan ce 11/03/2024 10:0 0 AM CDT Impressions 11/03/2024 10:03 AM CDT IMPRESSION: Mild to moderate multilevel lumbar spondylosis greatest at L4-5, as described above. Ordered By: BEULAH PARRA Interpreted By: Nate Aldridge MD, 11/03/2024 10:00 AM Narrative 11/03/2024 10:03 AM CDT [address] [place] [address] Examination: MRI LUMB SPINE WO CON, 11/03/2024 [...] Procedure Note Nate Aldridge MD - 11/03/[address] [place] [address] Examination: MRI LUMB SPINE WO [facility], 11/03/2024 10:00 AM. Technique: Multiplanar multisequence magnetic [...] - 145 MMOL/L 11/03/2024 6:17 AM CDT [facility] POTASSIUM S/P/B 4.1 3.5 - 5.1 MMOL/L 11/03/2024 6:17 AM CDT [facility] CHLORIDE S/P/B 105 98 - 107 MMOL/L 11/03/2024 6:17 AM CDT [facility] CO2 27.9 21.0 - 32.0 MMOL/L 11/03/2024 6:17 AM CDT [facility] GLUCOSE 211(H) 70 - 99 MG/DL 11/03/2024 6:17 AM CDT [facility] Comment: FASTING GLUCOSE 100 TO 125 MG/DL IS CONSISTENT WITH IMPAIRED FASTING GLUCOSE. FASTING GLUCOSE >125 MG/DL IS CONSISTENT WITH DIABETES. RANDOM GLUCOSE >200 MG/DL WITH HYPERGLYCEMIC SYMPTOMS IS CONSISTENT WITH DIABETES. PER ADA GUIDELINES BUN 7 6 - 24 MG/DL 11/03/2024 6:17 AM CDT [facility] CREATININE S/P/B 0.96 0.55 - 1.02 MG/DL 11/03/2024 6:17 AM CDT [facility] CALCIUM S/P/B 9.3 8.4 - 10.5 MG/DL 11/03/2024 6:17 AM CDT [facility] ANION GAP 7.1 5.0 - 15.0 MMOL/L 11/03/2024 6:17 AM CDT [facility] OSMOLALITY (CALC) 294 MOSM/KG 025 6:17 AM CDT [facility] Comment:REFERENCE RANGE NOT ESTABLISHED GFR ESTIMATE 67(L) >89 ML/MIN/1. 73 M2 11/03/2024 6:17 AM CDT [facility] GFR NOTES GFR REFERENCE S: 11/03/2024 6:17 AM CDT [facility] Comment: THE ESTIMATED GFR IS [...] Beulah Parra MD LABORATORY Final Resul t [facility] [address] [email or web address] [address], * (ABNORMAL) URINALYSIS (11/02/2024 3:46 PM CDT) COLOR (U) YELLOW 11/02/2024 4:08 PM CDT [facility] TRANSPARENCY CLEAR 11/02/2024 4:08 PM CDT [facility] SPECIFIC GRAVITY (U) 1.030(H) 1.000 - 1.025 11/02/2024 4:08 PM CDT [facility] Comment:EQUAL TO OR GREATER THAN U PH 5.5 5.0 - 8.0 11/02/2024 4:08 PM CDT [facility] LEUKOCYTES (U) NEGATIVE NEGATIVE 11/02/2024 4:08 PM CDT [facility] NITRITES NEGATIVE NEGATIVE 11/02/2024 4:08 PM CDT [facility] PROTEIN RANDOM (U) 2+(A) NEGATIVE 11/02/2024 4:08 PM CDT [facility] GLUCOSE (U) TRACE(A) NEGATIVE 11/02/2024 4:08 PM CDT [facility] KETONES MG/DL (U) 2+(A) NEGATIVE 11/02/2024 4:08 PM CDT [facility] UROBILINOGEN 0.2 <1.0 EU/DL 11/02/2024 4:08 PM CDT [facility] BLOOD (U) NEGATIVE NEGATIVE 11/02/2024 4:08 PM CDT [facility] WBC/HPF OCCASIONAL(A ) 0 - 5 /HPF 11/02/2024 4:08 PM CDT [facility] RBC/HPF NONE SEEN(A) 0 - 5 /HPF 11/02/2024 4:08 PM CDT [facility] EPI/LPF 1+ /LPF 11/02/2024 4:08 PM CDT [facility] BACTERIA (U) TRACE /HPF 11/02/2024 4:08 PM CDT [facility] BILIRUBIN CONF ICTO (U) NEGATIVE NEGATIVE 11/02/2024 4:08 PM CDT [facility] URINE SPECIMEN OBTAINED BY CLEAN CATCH PROCEDURE / Unknown 11/02/2024 3:46 PM CDT us Beulah Parra MD URINE ORDERABLES Final Resu lt [facility] [address] [place] [address], [place] [phone] * CULTURE URINE (11/02/2024 3:46 PM CDT) SPEC DESCRIPTION URINE CLEAN CATCH 11/02/2024 3:46 PM CDT [facility] SPECIAL REQUESTS NO SPECIAL REQUEST 11/02/2024 3:46 PM CDT [facility] CULTURE RESULT FEW CONTAMINANTS 09/2024 6:36 AM CDT [facility] URINE SPECIMEN OBTAINED BY CLEAN CATCH PROCEDURE / Unknown 11/02/2024 3:46 PM CDT 11/02/2024 6:43 PM CDT us Beulah Parra MD MICROBIOLOGY - GENERAL ORDAmando TAYLOR Final Result [facility] [address] [place] [address], [place] [phone] [facility] [address] [place] [address], [place] [phone] * XR CHEST PORTABLE (11/02/2024 3:00 PM CDT) Anatomical Region Laterality Modality Chest Radiographic Keshia ging 11/02/2024 3:15 PM CDT Impressions 11/02/2024 3:15 PM CDT IMPRESSION: No radiographic evidence of active chest disease. Ordered By: BEULAH PARRA Interpreted By: Escobar Hernandez MD, 11/02/2024 3:15 PM Narrative 11/02/2024 3:15 PM CDT [address] [place] [address] Examination: XR CHEST PORTABLE Exam time: 11/02/2024 [...] Procedure Note Escobar Hernandez MD - 11/02/[address] [place] [address] Examination: XR CHEST PORTABLE Exam time: 11/02/2024 [...] SPEC DESCRIPTION BLOOD 11/02/2024 1:21 PM CDT [facility] SPECIAL REQUESTS NO SPECIAL REQUEST 11/02/2024 1:21 PM CDT [facility] CULTURE RESULT NO GROWTH 5 DAYS 11/07/2024 7:53 PM CDT [facility] BLOOD SPECIMEN OBTAINED FOR BLOOD CULTURE / Unknown 11/02/2024 2:24 PM CDT 11/02/2024 2:25 PM CDT Beulah Parra MD MICROBIOLOGY - GENERAL ORDE [facility] Final Result [facility] [address] [place] [address], [phone] [facility] [address] [place] [address] [place] [address], * (ABNORMAL) Blood gas, venous (11/02/2024 2:16 PM CDT) PH VENOUS 7.31(L) 7.32 - 7.43 11/02/2024 2:28 PM CDT [facility] PCO2 VENOUS 58.0 MMHG 11/02/2024 2:28 PM CDT [facility] Comment:NO REFERENCE RANGE H BEEN ESTABLISHED PO2 VENOUS <30.0 MM HG 11/02/2024 2:28 PM CDT [facility] Comment:NO REFERENCE RANGE H BEEN ESTABLISHED TOTAL CO2 VENOUS 31.0(H) 22.0 - 26.0 MMOL/L 11/02/2024 2:28 PM CDT [facility] BASE EXCESS VENOUS 1.6 MMOL/L 11/02/2024 2:28 PM CDT [facility] Comment:NO REFERENCE RANGE H BEEN ESTABLISHED O2 SAT VENOUS NOT CALCULATED % 025 2:28 PM CDT [facility] Comment:NO REFERENCE RANGE H BEEN ESTABLISHED BICARB VENOUS 29.2(H) 22.0 - 29.0 MMOL/L 11/02/2024 2:28 PM CDT [facility] O2 ADMIN VENOUS 2L 2:16 PM CDT [facility] 11/02/2024 2:16 PM CDT us Beulah Parra MD LABORATORY Final Resul t [facility] Critical access hospital[address] [email or web address] [address], [place] [phone] * CT HEAD WO CON (11/02/2024 1:59 PM CDT) Anatomical Region Laterality Modality Head Computed Tomogra phy 11/02/2024 2:11 PM CDT Impressions 11/02/2024 2:13 PM CDT IMPRESSION: 1) No acute intracranial abnormality is demonstrated. Ordered By: BEULAH PARRA Interpreted By: Adolfo Saunders MD, 11/02/2024 2:11 PM Narrative 11/02/2024 2:13 PM [address]T [address] [place] [address] Examination: CT HEAD WO CON Exam time: [...] Procedure Note Adolfo Saunders MD - 11/02/[address] [place] [address] Examination: CT HEAD WO CON Exam time: [...] CDT) 11/02/2024 1:51 PM CDT Narrative [facility] - 11/03/2024 5:11 AM CDT [address] 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 Manager: : 1965 Requested By: BEULAH PARRA Order Number: [id number] Reading MD: Yang Blanco Measurements Intervals [place] Rate: 104 P: 30 ND: 132 QRS: 6 QRSD: 78 T: 39 QT: 352 QTc: 464 Interpretive Statements SINUS TACHYCARDIA MINIMAL VOLTAGE CRITERIA FOR LVH, CONSIDER NORMAL VARIANT NONSPECIFIC ST & T-WAVE ABNORMALITY ABNORMAL RHYTHM ECG us Beulah Parra MD ECG ORDERABLES Final Resul t Performing Organization Address City/[facility]/ZIP Co de Phone Number [facility] * LACTIC ACID W REFLEX (SEPSIS) (11/02/2024 1:46 PM CDT) LACTIC ACID VENOUS 2.0 0.4 - 2.0 MMOL/L 11/02/2024 3:04 PM CDT [facility] 11/02/2024 1:46 PM CDT us Beulah Parra MD LABORATORY Final Resul t Performing Organization Address [facility] de Phone Number [facility] Critical access hospital[address] [place] [address], [place] [phone] * TSH W/REFLEX (11/02/2024 1:46 PM CDT) TSH 1.324 0.358 - 3.740 uIU/ML 11/02/2024 3:06 PM CDT [facility] Comment: FREE T4 NOT INDICATED ASSAY PERFORMED BY CHEMILUMINESCENT IMMUNOASSAY METHODOLOGY USING SIEMENS DIMENSION REAGENT. PATIENT RESULTS DETERMINED BY ASSAYS FROM DIFFERENT MANUFACTURERS AND/OR BY DIFFERENT METHODS MAY NOT BE COMPARABLE. 11/02/2024 1:46 PM CDT us Beulah Parra MD LABORATORY Final Resul t Performing Organization Address [facility] Co de Phone Number [facility] Critical access hospital[address] [place], [place] [address], [place] [phone] * PRO-BRAIN NATRIURETIC PEPTIDE (11/02/2024 1:46 PM CDT) PRO-B TYPE NATRIURETIC PEPTIDE 92 <125 PG/ML 11/02/2024 3:10 PM CDT [facility] Comment: CUT POINTS ESTABLISHED BY [...] LABORATORY Final Resul t Performing Organization Address City/[facility]/ZIP Co de Phone Number [facility] [address] [place] [address], * TROPONIN, QUANT (11/02/2024 1:46 PM CDT) TROPONIN I HIGH SENSITIVITY 10 0 - 51 ng/L 11/02/2024 3:10 PM CDT [facility] 11/02/2024 1:46 PM CDT us Beulah Parra MD LABORATORY Final Resul t Performing Organization Address [facility] Co de Phone Number [facility] [address] [place] [address], * (ABNORMAL) AMMONIA (11/02/2024 1:46 PM CDT) AMMONIA <10(L) 11 - 32 UMOL/L 11/02/2024 2:52 PM CDT [facility] 11/02/2024 1:46 PM CDT us Beulah Parra MD LABORATORY Final Resul t Performing Organization Address City/[facility] Co de Phone Number [facility] [address] [place] [address], * (ABNORMAL) MAGNESIUM (11/02/2024 1:46 PM CDT) MAGNESIUM 1.7(L) 1.8 - 2.4 MG/DL 11/02/2024 3:10 PM CDT [facility] 11/02/2024 1:46 PM CDT Beulah Parra MD LABORATORY Final Resul t Performing Organization Address City/[facility]/ZIP Co de Phone Number [facility] [address] [place] [address], * (ABNORMAL) LIPASE (11/02/2024 1:46 PM CDT) LIPASE 13(L) 16 - 77 UNITS/L 11/02/2024 3:10 PM CDT [facility] 11/02/2024 1:46 PM CDT Beulah Parra MD LABORATORY Final Resul t Performing Organization Address [facility] Co de Phone Number [facility] [address] [place] [address], * (ABNORMAL) SALICYLATE (11/02/2024 1:46 PM CDT) SALICYLATES 1.8(L) 2.8 - 20.0 MG/DL 11/02/2024 3:06 PM CDT [facility] 11/02/2024 1:46 PM CDT us Beulah Parra MD LABORATORY Final Resul t Performing Organization Address [facility] Co de Phone Number [facility] [address] [place] [address], * ETHANOL (11/02/2024 1:46 PM CDT) ALCOHOL S/P/B <0.003 <0.003 G/DL 11/02/2024 3:08 PM CDT [facility] 11/02/2024 1:46 PM CDT us Beulah Parra MD LABORATORY Final Resul t Performing Organization Address [facility] Co de Phone Number [facility] [address] [place] [address], [place] [phone] * CK (CPK) (11/02/2024 1:46 PM CDT) CPK 75 26 - 192 U/L 11/02/2024 3:10 PM CDT [facility] 11/02/2024 1:46 PM CDT us Beulah Parra MD LABORATORY Final Resul t Performing Organization Address [facility] de Phone Number [facility] [address] [place] [address], * (ABNORMAL) ACETAMINOPHEN (11/02/2024 1:46 PM CDT) ACETAMINOPHEN S/P/B 2.5(L) 10.0 - 30.0 MCG/ML 11/02/2024 3:06 PM CDT [facility] 11/02/2024 1:46 PM CDT us Beulah Parra MD LABORATORY Final Resul t Performing Organization Address [facility] Co de Phone Number [facility] [address] [place] [address], [place] [phone] * (ABNORMAL) HEMOGLOBIN, GLYCOSYLATED (04/11/2024 11:15 PM [facility]) HGB A1C 7.0(H) <5.7 % 04/12/2024 12:08 AM [facility] ESTIMATED AVG GLUCOSE 154(H) 74 - 114 MG/DL 04/12/2024 12:08 AM [facility] 04/11/2024 11:1 5 PM [facility] Maris Cardenas MD LABORATORY Final Result Performing Organization Address [facility] Co de Phone Number [facility] [address] [place] [address], [phone] * HEPATITIS PANEL,ACUTE (08/17/2023 6:53 PM CDT) HEPATITIS B SURFACE AG NON-REACT MYCHAL NON-REACT MYCHAL 08/17/2023 8:17 PM CDT [facility] Comment:HBsAg NOT DETECTED. HEP B CORE IGM NON-REACT MYCHAL NON-REACT MYCHAL 08/17/2023 8:17 PM CDT [facility] Comment: IgM ANTI HBc NOT DETECTED. DOES NOT EXCLUDE THE POSSIBILITY OF EXPOSURE TO OR INFECTION WITH HBV. NO RETEST REQUIRED. HIGH DOSES OF BIOTIN MAY INTERFERE WITH THIS TEST RESULT. CORRELATION TO CLINICAL HISTORY AND PRESENTATION RECOMMENDED. HAV IGM NON-REACT MYCHAL NON-REACT MYCHAL 08/17/2023 8:17 PM CDT [facility] Comment: IgM ANTI HAV NOT DETECTED. DOES NOT EXCLUDE THE POSSIBILITY OF EXPOSURE TO OR INFECTION WITH HAV. LEVELS OF IgM ANTI HAV MAY BE BELOW THE CUTOFF IN EARLY INFECTION. HEPATITIS C AB NON-REACT MYCHAL NON-REACT MYCHAL 08/17/2023 8:17 PM CDT [facility] Comment: ANTIBODIES TO HCV NOT DETECTED. DOES NOT EXCLUDE THE POSSIBILITY OF EXPOSURE TO HCV. 08/17/2023 6:53 PM CDT Wil Alexander NP LABORATORY Final Resul t Performing Organization Address City/[facility]/ZIP Co de Phone Number [facility] [address] [place] [address], [phone] * MG SCREENING W SREE JUAN DIGI [...] Most Recently Relevant to Health Maintenance Insurance [facility] Advance Directives * Full Code (Latest Code [...] 1:05 AM 04/28/2024 3:59 PM Care Teams Application Packaging Consultant Relationship Specialty Start Date End Date Yvette Cunningham MD [address] [place] [address] PCP - General FAMILY PRACTICE 07/08/24 Alethea Roberto APNP [address] [place] [address] Nurse Practitioner NURSE PRACTITIONER 03/09/21
--- OUTSIDE RECORDS SUMMARY | 2025-01-28 14:16 | XMS_ITS | Encounter Summary ---
Author Organization [facility] Address [address] [place] [address] Care Team Providers Care Spar Cap Beveler Name Role Phone Alethea Roberto Unavailable [phone] Alethea Roberto Primary Care Provider Yvette Cunningham MD Primary Care Provider [phone] Encounter Details Date Type Department Care Team (Late st Contact Info) Description 02/19/2022 [employer] Message Enc [facility] [address], [address] [place] [address] Ericka Acosta, [facility] [address] [place] [address] [place] [address] Visit Follow Up Social History Tobacco Use [...] Sex Assigned at Female 06/16/2024 3:02 PM CIRCUS SUPERVISOR Legal Sex Female 10:13 AM CDT [...] AM PABLOT Kylie Nuñez RN Active * [place] Suicide Severity Rating Scale (Screener/Recent Self-Report) Question [...] Rule Out 04/10/2024 04/10/2024 04/10/2024 12:09 PM CIRCUS SUPERVISOR COVID-19 Rule Out 10/02/2024 10/02/2024 10/02/2024 1:17 PM CDT documented as of this encounter Care Teams Spar Cap Beveler Relationship Specialty Start Date End Date Alethea Roberto APNP [address] [place] [address] PCP - General NURSE PRACTITIONER 02/18/23 07/07/24 Yvette Cunningham MD [address] [place] [address] PCP - General FAMILY PRACTICE 07/08/24 Alethea Roberto APNP [address] [place] [address] Nurse Practitioner NURSE PRACTITIONER 03/09/21 documented as of this encounter
--- OUTSIDE RECORDS SUMMARY | 2025-01-28 14:16 | XMS_ITS | Clinical Summary ---
Author Organization [facility] Address [address] [place] [address] Care Team Providers Care Horologist Apprentice Name Role Phone Pardeep Alethea OROZCO Primary Care Provider [phone] Allergies Active Allergy Reactions Criticality Noted Date [...] mg/dL Assessment & Plan (05/01/2023 9:38 AM AUTOMOTIVE GLAZIER): This is a chronic condition which is [...] a recent stroke. 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 No changes made to insulin pump. Assessment & Plan (06/28/2021 2:03 PM AUTOMOTIVE GLAZIER): This is a chronic condition which is [...] pump. Assessment & Plan (05/11/2021 1:59 PM AUTOMOTIVE GLAZIER): This is a chronic condition which is stable, controlled, uncontrolled with hyperglycemia, improving, but not at goal. Download reviewed. Type of insulin pump- Vurbs 630G Pump settings : Basal 2units IC [...] 02/18/2017 Assessment & Plan (05/01/2023 9:38 AM AUTOMOTIVE GLAZIER): This is a chronic condition which is [...] prescribed. Assessment & Plan (06/28/2021 2:03 PM AUTOMOTIVE GLAZIER): This is a chronic condition which is at goal. Goal is less than 70. Personally reviewed lipid panel. ldl-43 on crestor. Encouraged to eat healthy, include fresh fruits and vegetables daily and avoid eating fried foods more than once per week. Encouraged to take medications as prescribed. Assessment & Plan (05/11/2021 1:12 PM AUTOMOTIVE GLAZIER): This is a chronic condition which is at goal. Goal is less than 70. Personally reviewed lipid panel. ldl-43 on crestor. Encouraged to eat healthy, include fresh fruits and vegetables daily and avoid eating fried foods more than once per week. Encouraged to take medications as prescribed. Hypertension associated with type 2 diabetes kate litus 02/18/2017 Assessment & Plan (05/11/2021 1:11 PM AUTOMOTIVE GLAZIER): This is a chronic condition which is [...] 02/18/2017 Assessment & Plan (05/01/2023 9:35 AM AUTOMOTIVE GLAZIER): This is a chronic condition which is [...] eye exam was [facility] in [place] Monofilament foot exam completed. protective senses intact [...] worsening and not at goal. Personally reviewed Q9a-egrnbtrte to 9% not at goal less than 7% Personally reviewed blood sugar -129, not at goal 80-180 Medication- Continue Medtronic insulin pump. continue Trulicity 3mg weekly Monitor blood sugar continuously with Vessix Vascularyle jennie 2 Encouraged annual eye exam. Monofilament [...] which is not at goal. Personally reviewed S6u-sssscbiod to 9% not at goal less than [...] CVA Assessment & Plan (06/28/2021 2:00 PM AUTOMOTIVE GLAZIER): This is a chronic condition which is [...] CVA Assessment & Plan (05/11/2021 1:09 PM AUTOMOTIVE GLAZIER): This is a chronic condition which is [...] scheduled Assessment & Plan (06/28/2021 2:04 PM AUTOMOTIVE GLAZIER): Improving. Continue to see therapy as scheduled Assessment & Plan (05/11/2021 1:10 PM AUTOMOTIVE GLAZIER): This is a chronic condition. Seeing speech therapy. Give extra time to allow her to get her words out Encounters Date Type Department Care Team Description 01/28/2025 Telephone [facility] the [facility] Advanced Medicine [address] [place] [address] Advanced Medicine [address] [place] [address] Ruddy Mcclain MD [facility] Preprocedure 01/28/2025 Telephone [facility] the [facility] Advanced Medicine [address] [place] [address] Advanced Medicine [address] [place] [address] Ruddy Mcclain MD Pre Procedure 01/12/2025 8:39 AM CDT - 01/12/2025 11:59 PM CDT Hospital Encounter [facility] at the [facility] Medicine [address] [place] [address] [place] [address] Ruddy Mcclain MD Lumbar spondylosis (Primary Dx) Discharge Disposition: Discharge to home or self care 12/31/2024 1:00 PM CDT Office Visit [facility] at [address] [address] Harleen Butler, UNDERWRITER Type 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, with long-term current use of insulin (HCC) (Primary Dx); Mixed hyperlipidemia; Hypertension associated with type 2 diabetes mellitus (HCC); Medtronic 780G Insulin pump in place; Class 1 obesity due to excess calories with serious comorbidity and body mass index (BMI) of 32.0 to 32.9 in adult 12/22/2024 7:50 AM CDT Office Visit [facility] [address] [facility] 6th [place] [address] [place] [address] Walter Patel MD Low back pain, unspecified back pain laterality, unspecified chronicity, unspecified whether sciatica present (Primary Dx); Spinal stenosis, unspecified spinal region; Low back pain with left-sided sciatica, unspecified back pain laterality, unspecified chronicity 12/22/2024 7:15 AM CDT - 12/22/2024 11:59 PM CDT Hospital Encounter [facility] ([facility]) [address] [place] [address] Low back pain, unspecified back pain laterality, unspecified chronicity, unspecified whether sciatica present Discharge Disposition: Discharge to home or self care 12/22/2024 Orders Only [facility] Surgery [address] [place] [address] [address] [place] [address] [place] [address] Walter Patel MD Low back pain with left-sided sciatica, unspecified back pain laterality, unspecified chronicity (Primary Dx); Spinal stenosis, unspecified spinal region; Cyst of lumbar facet joint 12/09/2024 10:21 AM CDT - 12/09/2024 11:59 PM CDT Hospital Encounter [facility] ([facility]) [address] [place] [address] Discharge Disposition: Discharge to home or self care 12/09/2024 10:21 AM CDT - 12/09/2024 11:59 PM CDT Hospital Encounter [facility] ([facility]) [address] [place] [address] Discharge Disposition: Discharge to home or self care 12/09/2024 10:20 AM CDT - 12/09/2024 11:59 PM CDT Hospital Encounter [facility] ([facility]) [address] [place] [address] Discharge Disposition: Discharge to home or self care 12/09/2024 10:19 AM CDT - 12/09/2024 11:59 PM CDT Hospital Encounter [facility] ([facility]) [address] [place] [address] Discharge Disposition: Discharge to home or self care 12/09/2024 10:19 AM CDT - 12/09/2024 11:59 PM CDT Hospital Encounter [facility] ([facility]) [address] [place] [address] Discharge Disposition: Discharge to home or self care 12/09/2024 Telephone [facility] Medicine Orthopaedic Surgery [address] [place] [address] Goodwin Appointment Questions [...] on file Legal Sex Female 4:58 PM AUTOMOTIVE GLAZIER Gender Identity Not on file Sexual Orientation [...] Blood 12/31/2024 1:08 PM CDT Harleen Butler UNDERWRITER POINT OF CARE TEST ORDERABLES F inal Result * POCT glucose (12/31/2024 1:07 PM CDT) Glucose Blood, POC 151 Normal Fasting 70 - 100, Random <200 mg/dL Blood 12/31/2024 1:07 PM CDT us Harleen Butler UNDERWRITER POINT OF CARE TEST ORDERABLES F inal [...] and have not been reviewed by [facility]. There will be no report generated by a [facility]iologist. Narrative [facility] - 12/09/2024 10:21 AM CDT EXAMINATION: Images For Reference Purposes Only Walter Patel MD IMG XR PROCEDURES Fi nal Result [facility] * Neuro CT Outside Reference (12/09/2024 10:21 AM CDT) Impressions [facility] - 12/09/2024 10:21 AM CDT These images are for Reference purposes only and have not been reviewed by [facility]. There will be no report generated by a [facility]iologist. Narrative [facility]_P[facility] - 12/09/2024 10:21 AM CDT EXAMINATION: Images For Reference Purposes Only Walter Patel MD IMG CT PROCEDURES Fi nal Result Performing Organization Address [facility] de Phone Number [email or web address] * Neuro MR Outside Reference (12/09/2024 10:20 AM CDT) Impressions [facility] - 12/09/2024 10:20 AM CDT These images are for Reference purposes only and have not been reviewed by [facility]. There will be no report generated by a [facility] Radiologist. Narrative [facility] - 12/09/2024 10:20 AM CDT EXAMINATION: Images For Reference Purposes Only Walter Patel MD IMG MRI PROCEDURES F inal Result Performing Organization Address [facility] de Phone Number [email or web address] * Neuro MR Outside Reference (12/09/2024 10:19 AM CDT) Impressions [facility] - 12/09/2024 10:19 AM CDT These images are for Reference purposes only and have not been reviewed by [facility]. There will be no report generated by a [facility] Radiologist. Narrative [facility] - 12/09/2024 10:19 AM CDT EXAMINATION: Images For Reference Purposes Only Result [facility] Walter Patel MD IMG MRI PROCEDURES F inal Result Performing Organization Address [facility] de Phone Number [email or web address] * Neuro MR Outside Reference (12/09/2024 10:19 AM CDT) Impressions [facility] - 12/09/2024 10:19 AM CDT These images are for Reference purposes only and have not been reviewed by [facility]. There will be no report generated by a [facility] Radiologist. Narrative [facility] - 12/09/2024 10:19 AM CDT EXAMINATION: Images For Reference Purposes Only Walter Patel MD IMG MRI PROCEDURES F inal Result Performing Organization Address City/[facility]/ZIP Co de Phone Number [email or web address] * Diabetic Eye Exam (03/26/2023) 03/26/2023 Result [facility] Historical Provider HEALTH MAINTENANCE Final Result * Albumin Creatinine Ratio, Urine (12/19/2022) Pathologist [facility] SCRIBED Creatinine, Urine 54.6 - - - [facility] SCRIBED Microalbumin 12.1 - - - [facility] SCRIBED Microalb/Creat Ratio 22 [facility] Urine 12/19/2022 Result [facility] Historical Provider LAB URINE ORDERABLES Gauri l Result Performing Organization Address [facility]/ZIP Co de Phone Number [facility] * Lipid panel (12/19/2022) Pathologist [facility] SCRIBED Cholesterol, Total 138 - - - [facility] SCRIBED HDL 66 - - - [facility] SCRIBED LDL 46 - - - [facility] SCRIBED Triglycerides 157 - - - [facility] Blood 12/19/2022 Result [facility] Historical Provider LAB BLOOD ORDERABLES Gauri l Result Performing Organization Address [facility]/ZIP Co de Phone Number [facility] * [...] - - [facility] SCRIBED eGFR in NonAfrican Singaporean 51 - - - [facility] Blood 12/19/2022 us Historical Provider LAB BLOOD ORDERABLES Gauri napier Result [facility] from Last 3 Months or Most Recently Relevant to Health Maintenance Insurance [place] [place] [facility] Care Teams Horologist Apprentice Relationship Specialty Start Date End Date Alethea Roberto NP [address] [place] [address] PCP - General Family Medicine 05/01/23
--- OUTSIDE RECORDS SUMMARY | 2025-01-28 14:16 | XMS_ITS | Encounter Summary ---
Author Organization [facility] Address [address] [place] [address] Care Team Providers Care Beet Flumer Name Role Phone Jed Gale MD Primary Care Provider [phone] Alethea Roberto Primary Care Provider Alethea Roberto Unavailable [phone] Alethea Roberto Primary Care Provider Yvette Cunningham MD Primary Care Provider [phone] Encounter Details Date Type Department Care Team (Late st Contact Info) Description 11/08/2018 Abstract [facility] CONVERSION [address] [place] [address] , Generic Conversion, Social History Tobacco Use Types Packs/Day Years Used Date Smoking Tobacco: Never Assessed Comments Unknown Sex and Gender Information Value Date Recorded Sex Assigned at Female 06/16/2024 3:02 PM PORTABLE PINCH RIVETER Legal Sex Female 10:13 AM CDT Gender Identity Not on file Sexual Orientation Not on file documented as of this encounter Plan of Treatment Not on file documented as of this encounter Visit Diagnoses Not on filedocumented in this encounter Additional Health Concerns Infection Onset Date Last Indicated Resolved Time COVID-19 Rule Out 05/06/2020 05/06/2020 05/06/2020 2:48 PM PORTABLE PINCH RIVETER COVID-19 Rule Out 10/29/2020 10/29/2020 10/29/2020 7:37 PM CDT COVID-19 Rule Out 02/28/2022 02/28/2022 02/28/2022 10:20 AM CDT COVID-19 Rule Out 04/10/2024 04/10/2024 04/10/2024 12:09 PM PORTABLE PINCH RIVETER COVID-19 Rule Out 10/02/2024 10/02/2024 10/02/2024 1:17 PM CDT documented as of this encounter Care Teams Beet Flumer Relationship Specialty Start Date End Date Jed Gale MD [address] [place] [address] PCP - General FAMILY PRACTICE 03/02/19 05/05/20 Alethea Roberto APNP [address] [place] [address] PCP - General NURSE PRACTITIONER 05/06/20 03/08/21 Alethea Roberto APNP [address] [place] [address] PCP - General NURSE PRACTITIONER 02/18/23 07/07/24 Yvette Cunningham MD [address] [place] [address] PCP - General FAMILY PRACTICE 07/08/24 Alethea Roberto APNP [address] [place] [address] Nurse Practitioner NURSE PRACTITIONER 03/09/21 documented as of this encounter
--- OUTSIDE RECORDS SUMMARY | 2025-01-28 14:16 | XMS_ITS | Encounter Summary ---
Author Organization [facility] Address [address] [place] [address] Care Team Providers Care Adult Day Care Worker Name Role Phone Yvette Cunningham MD Primary [...] on filedocumented in this encounter Care Teams Adult Day Care Worker Relationship Specialty Start Date End Date Yvette Cunningham MD [address] [place] [address] PCP - General Family Practice 12/27/24 documented as of this encounter
--- OUTSIDE RECORDS SUMMARY | 2025-01-28 14:16 | XMS_ITS | Clinical Summary ---
Author Organization [facility] Address [address] [address] Care Team Providers Care Tooling Inspector Name Role Phone Yvette Cunningham MD Primary Care Provider [phone] Source Comments [facility],non-owned Affiliates and Associated Physician Practices is amultiple site organization consisting of ambulatory clinics and hospital sitesin [place], [place] and [place]. This disclosure is being madepursuant to the Care Everywhere program and may not contain all information available regarding this patient. Last updated 18.[facility] Allergies Active Allergy Reactions Criticality Noted Date [...] daily Active Calcium Carbonate-Vit D-Min (CALCIUM 1200) 7369-6209 MG-UNIT CHEW Take 1 tablet by mouth [...] [facility] - Cardiology [address] [phone] Unique Valdivia RN Loop Recorder 11/11/2024 10:00 AM CDT Office Visit [facility] - Neurology [address] [facility], [place] [phone] Eleni Gtz PA-C Cerebrovascular accident (CVA), unspecified mechanism (HCC) (Primary Dx); Primary hypertension; Type 2 diabetes, controlled, with neuropathy (HCC); Moderate episode of recurrent major depressive disorder (HCC); Hallucinations; Cognitive dysfunction 11/11/2024 Travel 10/28/2024 Telephone [facility] - Cardiology [address] [place] [phone] Provider, No Pcp Question; Loop Recorder from [...] on file Legal Sex Female 8:31 AM VINYL DIPPER Gender Identity Not on file Sexual Orientation Not on file Last Filed Vital Signs Vital Sign Reading Time Taken Comments Blood Pressure 116/74 11/11/2024 9:37 AM CDT Pulse 96 11/11/2024 9:37 AM CDT Temperature 36.6 C (97.8 F) 04/18/2021 12:58 PM VINYL DIPPER Respiratory Rate 14 11/11/2024 9:37 AM CDT Oxygen Saturation 95% 04/18/2021 3:02 PM VINYL DIPPER Inhaled Oxygen Concentration - - Weight 77.6 kg (171 lb) 11/11/2024 9:37 AM CDT Height 154.9 cm (5' 1) 11/22/2021 9:51 AM CDT Body Mass Index 32.31 11/22/2021 9:51 AM CDT Plan of Treatment Upcoming Encounters Date Type Department Care Team (Late st Contact Info) Description 02/04/2025 1:00 AM CDT Clinical Support [facility] [address] [facility], [facility] [address] [place] [address] Health Maintenance Due Date Last [...] this topic Medical Devices Implanted Type Area Clinical Services Specialist Device Identifier Shelf Expiration Date Model / Serial / Lot Sys Crd Mntr Rvl Linq Mycarelink Ins - [id number] Implanted:Qty : 1 on 04/18/2021 by Maico De La Cruz MD at [facility] Loop Recorder Left: Chest Wall [employer] 01/14/2022 LINQSYS DISCONTINUED / [id number] / Procedures Procedure Name Priority Date/Time Associated Diagnosis Comments BASIC METABOLIC PANEL (CALCIUM TOTAL) Routine 04/18/2021 3:51 AM VINYL DIPPER HEMOGLOBIN A1C Add on 04/16/2021 9:35 AM VINYL DIPPER from Last 3 Months or Most Recently Relevant to Health Maintenance Results * (ABNORMAL) BASIC METABOLIC PANEL (CALCIUM TOTAL) (04/18/2021 3:51 AM VINYL DIPPER) BUN 7 7 - 26 mg/dL 04/18/2021 5:15 AM [facility] Creatinine 0.80 0.56 - 0.96 mg/dL 04/18/2021 5:15 AM [facility] Sodium 141 136 - 145 mmol/L 04/18/2021 5:15 AM [facility] Potassium 3.2(L) 3.5 - 4.5 mmol/L 04/18/2021 5:15 AM [facility] Chloride 105 98 - 107 mmol/L 04/18/2021 5:15 AM [facility] CO2 21(L) 22 - 29 mmol/L 04/18/2021 5:15 AM [facility] Glucose 185(H) 70 - 115 [...] Lab Venipuncture / Unknown 04/18/2021 3:51 AM VINYL DIPPER 04/18/2021 4:52 AM [facility] us Aaron Hauser MD LAB - CHEMISTRY ORDERABLES Final Result [facility] [address] [place] [address], [facility] [phone] * (ABNORMAL) HEMOGLOBIN A1C (04/16/2021 9:35 AM [facility]) Hemoglobin A1c 7.9(H) 4.4 - 6.3 % 04/16/2021 11:10 AM [facility] Estimated Average Glucose 180 mg/dL 04/16/2021 11:10 AM [facility] Comment: HbA1c Interpretation: Treatment target values recommended by ADA and other clinical organizations should be used to evaluate metabolic control in patients. Treatment Target Values: Normal : < 5.7% Pre-diabetes: 5.7-6.4% Diabetes: Equal to or greater than 6.5% Reference: Citizen Of [place] Diabetes Association Standards of Care in Diabetes -2014 In patients 70 years and older consider HbA1c target range of 7.0-7.5% Reference: Diabetes Mellitus in Older People: Position Statement on behalf of the International Association of Gerontology and Geriatrics (IAGG), the Diabetes Working Green Party for Older People (EDWPOP), and the International Task Force of Experts in Diabetes. Akash Saavedra et al. J Citizen Of [place] Medical Directors Association. 2012 Test results diagnostic of diabetes should be repeated for confirmation. The Sebia Capillary 2 assay for the measurement of HbA1c is a National Glycohemoglobin Standardization Program (NGSP)certified method. Blood BLOOD SPECIMEN / Unknown Venipuncture / Unknown 04/16/2021 9:35 AM VINYL DIPPER 04/16/2021 9:40 AM VINYL DIPPER us Aaron Hauser MD LAB - CHEMISTRY ORDERABLES Final Result [facility] [address] [place] [address], [facility] [phone] from Last 3 Months or Most Recently Relevant to Health Maintenance Insurance ANTH Advance Directives * Full Code (Latest Code Status on File) Date Activated Date Inactivated Comments 04/16/2021 12:01 AM 04/18/2021 5:09 PM Care Teams Tooling Inspector Relationship Specialty Start Date End Date Yvette Cunningham MD [address] [address] PCP - General Family Medicine 11/11/24
--- OUTSIDE RECORDS SUMMARY | 2025-01-28 14:16 | XMS_ITS | Clinical Summary ---
Author Organization [facility] Address [address] [place] [address] Phone Care Team Providers Care Insulation Technician Name Role Phone Yvette Cunningham MD Primary [...] Data STL ABSTRACTION Provider, Abstract 12/28/2024 Telephone [facility] [address] [facility] [address] [address] [address] [facility] [address] [place] [address] Rocio Katz, SERVICE CENTER COORDINATOR Referral (Once discharged, repeat LFTs one week after discharge/If LFTs continuing to increase or still elevated plan for outpatient EUS+/-ERCP) 12/27/2024 Travel 12/26/2024 7:49 PM CDT - 12/28/2024 3:07 PM CDT Hospital Encounter [facility] [address] [place] [address] Nish Hester, Abby Alejandra, Darby [...] of3 resultswithin the time period is included. [facility] WBC 12.0(H) 4.0 - 9.8 K/uL 12/28/2024 10:48 AM CDT [facility] RBC 4.66 3.90 - 4.90 M/uL 12/28/2024 10:48 AM CDT [facility] HEMOGLOBIN 12.2 11.8 - 14.8 g/dL 12/28/2024 10:48 AM CDT [facility] HEMATOCRIT 39.5 35.5 - 44.0 % 12/28/2024 10:48 AM CDT [facility] MCV 84.8 82.0 - 99.0 fL 12/28/2024 10:48 AM CDT [facility] MCH 26.2(L) 27.2 - 32.6 pg 12/28/2024 10:48 AM CDT [facility] MCHC 30.9(L) 31.5 - 35.5 g/dL 12/28/2024 10:48 AM CDT [facility] RDW 18.6(H) 11.5 - 14.5 % 12/28/2024 10:48 AM CDT [facility] RDW-STDEV 57.3(H) 37.1 - 48.7 fL 12/28/2024 10:48 AM CDT [facility] - [facility] PLATELETS 342 140 - 350 K/uL 12/28/2024 10:48 AM CDT [facility] MPV 10.3 9.3 - 12.4 fL 12/28/2024 10:48 AM CDT [facility] NEUTROPHILS 50 % 12/28/2024 10:48 AM CDT [facility] LYMPHOCYTES 34 % 12/28/2024 10:48 AM CDT [facility] MONOCYTES 11 % 12/28/2024 10:48 AM CDT [facility] EOSINOPHILS 5 % 12/28/2024 10:48 AM CDT [facility] BASOPHILS 1 % 12/28/2024 10:48 AM CDT [facility] IMMATURE GRANULOCYTES 0 % 12/28/2024 10:48 AM CDT [facility] NEUTROPHIL ABSOLUTE 5.99 1.90 - 7.00 K/uL 12/28/2024 10:48 AM CDT [facility] LYMPHOCYTE ABSOLUTE 4.12 0.70 - 4.50 K/uL 12/28/2024 10:48 AM CDT [facility] MONOCYTE ABSOLUTE 1.26 0.10 - 1.30 K/uL 12/28/2024 10:48 AM CDT [facility] EOSINOPHIL ABSOLUTE 0.55 0.00 - 0.70 K/uL 12/28/2024 10:48 AM CDT [facility] BASOPHILS ABSOLUTE 0.08 0.00 - 0.20 K/uL 12/28/2024 10:48 AM CDT [facility] IMMATURE GRANULOCYTES ABSOLUTE 0.03 0.00 - 0.03 K/uL 12/28/2024 10:48 AM CDT [facility] Blood Venipuncture / Unknown 12/28/2024 10:27 AM CDT 12/28/2024 10:46 AM CDT Rocio Katz NP HEMATOLOGY ORDERABLES Final Result [facility] CLIA# [id number] [place] [address] * (ABNORMAL) COMPREHENSIVE METABOLIC PANEL (12/28/2024 10:27 AM CDT) Only the most recent of2 resultswithin the time period is included. SODIUM 138 136 - 145 mmol/L 12/28/2024 11:14 AM CDT [facility] POTASSIUM 3.7 3.4 - 5.1 mmol/L 12/28/2024 11:14 AM CDT [facility] CHLORIDE 103 98 - 107 mmol/L 12/28/2024 11:14 AM CDT [facility] CO2 22 22 - 29 mmol/L 12/28/2024 11:14 AM CDT [facility] CALCIUM 9.4 8.6 - 10.4 mg/dL 12/28/2024 11:14 AM CDT [facility] BUN 7 6 - 20 mg/dL 12/28/2024 11:14 AM CDT [facility] CREATININE 0.76 0.51 - 0.95 mg/dL 12/28/2024 11:14 AM CDT [facility] GLUCOSE 150(H) 74 - 99 mg/dL 12/28/2024 11:14 AM CDT [facility] TOTAL PROTEIN 6.4 6.3 - 8.7 g/dL 12/28/2024 11:14 AM CDT [facility] ALBUMIN 3.7 3.5 - 5.2 g/dL 12/28/2024 11:14 AM CDT [facility] BILIRUBIN TOTAL 0.3 0.0 - 1.1 mg/dL 12/28/2024 11:14 AM CDT [facility] ALKALINE PHOSPHATASE 326(H) 40 - 150 U/L 12/28/2024 11:14 AM CDT [facility] AST 116(H) 0 - 33 U/L 12/28/2024 11:14 AM CDT [facility] ALT 97(H) 0 - 33 U/L 12/28/2024 11:14 AM CDT [facility] GFR >60 >=60 mL/min/1.7 3 sq meter 12/28/2024 11:14 AM T [facility] Comment:eGFR calculated with 2020 CKD-EPI equation. Vegetarian diet, extremely high or low muscle mass, and may affect results. Cystatin C with Glomerular Filtration Rate is a suitable alternative for these patients. ANION GAP 13 8 - 16 mmol/L 12/28/2024 11:14 AM CDT [facility] Blood Venipuncture / Unknown 12/28/2024 10:27 AM CDT 12/28/2024 10:44 AM CDT us Rocio Katz NP CHEMISTRY ORDERABLES Final R esult [id number] [address] [place] [address] * MRI MRCP W AND WO CONTRAST (12/28/2024 9:38 AM CDT) Anatomical Region Laterality Modality Abdomen Magnetic Resonan ce 12/28/2024 9:38 AM CDT Impressions 12/28/2024 10:50 AM CDT IMPRESSION: Nonspecific biliary duct dilatation postcholecystectomy without detectable mass or choledocholithiasis. DICTATION LOCATION: Location [address] [place] [address] Narrative 12/28/2024 10:50 AM CDT EXAMINATION: MRI [...] without detectable mass or choledocholithiasis. DICTATION LOCATION: [address] Darby Dennison MD MR ORDERABLES Final Result * US ABDOMEN LIMITED (12/27/2024 7:00 AM CDT) Anatomical Region Laterality Modality Abdomen Ultrasound 12/27/2024 7:09 AM CDT Impressions 12/27/2024 7:32 AM CDT IMPRESSION: Cholecystectomy Dilated extrahepatic common bile duct DICTATION LOCATION: [address] Narrative 12/27/2024 7:32 AM CDT ULTRASOUND [...] common bile duct DICTATION LOCATION: Location - [facility] Abby Keke DO US ORDERABLES Final Result * POC GLUCOSE (12/27/2024 5:10 AM CDT) GLUCOSE POC 97 74 - 99 mg/dL 12/27/2024 5:10 AM CDT [facility] POINT OF CARE SPECIMEN SOURCE, GLUCOSE POC Whole Blood 12/27/2024 5:10 AM CDT [facility] POINT OF CARE Blood, whole 12/27/2024 5:10 AM CDT 12/27/2024 5:17 AM CDT [facility] POINT OF CARE TESTING Final Resu lt [facility] POINT OF CARE CLIA # [id number] [address] [place] [address] * (ABNORMAL) IRON, TIBC, AND PERCENT SATURATION (12/27/2024 3:04 AM CDT) IRON 22(L) 37 - 145 ug/dL 12/28/2024 11:49 AM CDT [facility] TIBC 330 265 - 497 ug/dL 12/28/2024 11:49 AM CDT [facility] IRON % SATURATION 7(L) 20 - 55 % 12/28/2024 11:49 AM CDT [facility] TRANSFERRIN 260 200 - 360 mg/dL 12/28/2024 11:49 AM CDT [facility] - [facility] Blood Venipuncture / Unknown 12/27/2024 3:04 AM CDT 12/27/2024 3:42 AM CDT Rocio Katz SERVICE CENTER COORDINATOR CHEMISTRY ORDERABLES Final [facility] Performing Organization Address City/[facility]/ZIP Co de Phone Number [facility] [id number] [address] [place] [address] * FERRITIN (12/27/2024 3:04 AM CDT) Pathologist [facility] FERRITIN 29.5 13.0 - 150.0 ng/mL 12/28/2024 11:49 AM CDT [facility] Blood Venipuncture / Unknown 12/27/2024 3:04 AM CDT 12/27/2024 3:42 AM CDT Rocio Katz SERVICE CENTER COORDINATOR CHEMISTRY ORDERABLES Final [facility] Performing Organization Address City/[facility] Co de Phone Number [facility] [id number] [place] [address] * BASIC METABOLIC PANEL (12/27/2024 3:04 AM CDT) Pathologist [facility] SODIUM 139 136 - 145 mmol/L 12/27/2024 4:19 AM CDT [facility] POTASSIUM 3.5 3.4 - 5.1 mmol/L 12/27/2024 4:19 AM CDT [facility] - [facility] CHLORIDE 104 98 - 107 mmol/L 12/27/2024 4:19 AM CDT [facility] - [facility] CO2 22 22 - 29 mmol/L 12/27/2024 4:19 AM CDT [facility] CALCIUM 8.6 8.6 - 10.4 mg/dL 12/27/2024 4:19 AM CDT [facility] - [facility] BUN 9 6 - 20 mg/dL 12/27/2024 4:19 AM CDT [facility] CREATININE 0.82 0.51 - 0.95 mg/dL 12/27/2024 4:19 AM CDT [facility] GLUCOSE 86 74 - 99 mg/dL 12/27/2024 4:19 AM CDT [facility] GFR >60 >=60 mL/min/1.7 3 sq meter 12/27/2024 4:19 AM CDT [facility] Comment:eGFR calculated with 2020 CKD-EPI equation. Vegetarian diet, extremely high or low muscle mass, and may affect results. Cystatin C with Glomerular Filtration Rate is a suitable alternative for these patients. ANION GAP 13 8 - 16 mmol/L 12/27/2024 4:19 AM CDT [facility] Blood Venipuncture / Unknown 12/27/2024 3:04 AM CDT 12/27/2024 3:42 AM CDT us Abby Davies DO CHEMISTRY ORDERABLES Final Resul t [facility] CLIA# [id number] [address] [place] [address] * EKG 12-LEAD (12/26/2024 10:31 PM CDT) 12/26/2024 10:3 1 PM CDT Narrative INTERFACE SYSTEM - 12/27/2024 1:19 [place] [address] Test Date: 2024-12-26 Pat Name: PRAVIN MORAES Department: 98 Room: [address] [place] [address] Gender: Female Board Writer: ST2 : 1965 Requested By: NISH HESTER Order Number: [id number] Reading MD: Chavo Iraheta Measurements Intervals [place] Rate: 100 P: 35 DE: 118 QRS: 14 QRSD: 72 T: 82 QT: 340 QTc: 438 Interpretive Statements Normal sinus rhythm Nonspecific ST and T wave abnormality Abnormal ECG No previous ECG available for comparison Electronically Signed On 12-27-2024 13:19:59 CDT by Edward Coverstone Procedure Note Provider, Historical - 12/27/2024 [place] [address] Test Date: 2024-12-26 Pat Name: PRAVIN MORAES Department: 98 Room: 5216 01 Gender: Female Board Writer: ST2 : 1965 Requested By: NISH HESTER Order Number: [id number] Reading MD: Chavo Iraheta Measurements Intervals [place] Rate: 100 P: 35 DE: 118 QRS: 14 QRSD: 72 T: 82 [...] - 4.5 mg/dL 12/26/2024 9:59 PM CDT [facility] Blood Venipuncture / Unknown 12/26/2024 9:24 PM CDT 12/26/2024 9:29 PM CDT us Abby Keke DO CHEMISTRY ORDERABLES Final Resul t [facility] CLIA# [id number] [place] [address] * MAGNESIUM LEVEL (12/26/2024 9:24 PM CDT) MAGNESIUM 1.8 1.6 - 2.6 mg/dL 12/26/2024 9:59 PM CDT [facility] Blood Venipuncture / Unknown 12/26/2024 9:24 PM CDT 12/26/2024 9:29 PM CDT us Abby Keke DO CHEMISTRY ORDERABLES Final Resul t [facility]# [id number] [place] [address] from Last 3 Months Insurance BCBS OUT OF STATE Advance Directives For more information, please contact: [phone] * Full Code (Latest Code Status on File) Date Activated Date Inactivated Comments 12/26/2024 9:08 PM 12/28/2024 5:17 PM Care Teams Insulation Technician Relationship Specialty Start Date End Date Yvette Cunningham MD [address] [place] [address] PCP - General Family Practice 12/27/24
--- OUTSIDE RECORDS SUMMARY | 2025-01-28 14:16 | XMS_ITS | Encounter Summary ---
Author Organization [facility] Address [address] [place] [address] Care Team Providers Care Medical Chemist Name Role Phone Yvette Cunningham MD Primary [...] on filedocumented in this encounter Care Teams Medical Chemist Relationship Specialty Start Date End Date Yvette Cunningham MD [address] [place] [address] PCP - General Family Practice 12/27/24 documented as of this encounter
--- OUTSIDE RECORDS SUMMARY | 2025-01-28 14:16 | XMS_ITS | Encounter Summary ---
Author Organization [facility] Address [address] [place] [address] Care Team Providers Care Log Cut Off Sawyer Name Role Phone Alethea Roberto Unavailable [phone] Alethea Roberto Primary Care Provider Yvette Cunningham MD Primary Care Provider [phone] Encounter Details Date Type Department Care Team (Late st Contact Info) Description 06/17/2024 Lozo Message Enc [facility] [address], [facility] [address] [place] [address] Kasey Newberry PA [address] [place] [address] Visit Follow Up Social History Tobacco Use [...] from your doctor or pharmacy? Never 04/11/2024 [facility] Utilities Answer Date Recorded In the past [...] week 04/11/2024 How often do you attend [facility] or evangelical services? Patient declined 04/11/2024 Do you belong to any clubs o r organizations such as nondenominational groups, unions, fraternal or athletic groups, or [...] and heating? Not hard at all 04/11/2024 [facility] [place] of Occupat ional Health - Occupational Stress [...] place to sleep or slept in a prison (including now)? No 08/07/2023 Housing Stability Vital Sign Answer Don e Recorded In the last 12 months, was t here a time when you were not able to pay the mortgage or rent on time? No 04/11/2024 In the past 12 months, how m any times have you moved where you were living? 0 04/11/2024 At any time in the past 12 m [facility], were you homeless or living in a prison (including now)? No 04/11/2024 Comments No Sex and Gender Information Value Date Recorded Sex Assigned at Female 06/16/2024 3:02 PM STAGE TECHNICIAN Legal Sex Female 10:13 AM CDT [...] documented as of this encounter Care Teams Log Cut Off Sawyer Relationship Specialty Start Date End Date Alethea Roberto APNP [address] [address] PCP - General NURSE PRACTITIONER 02/18/23 07/07/24 Yvette Cunningham MD [address] [place] [address] PCP - General FAMILY PRACTICE 07/08/24 Alethea Roberto APNP [address] [place], [place] [address] [address] Nurse Practitioner NURSE PRACTITIONER 03/09/21 documented as of this encounter
--- OUTSIDE RECORDS SUMMARY | 2025-01-28 14:16 | XMS_ITS | Encounter Summary ---
Author Organization [facility] Address [address] [place] [address] Care Team Providers Care Equipment Worker Name Role Phone Alethea Roberto PATIENT ACCOUNTS COORDINATOR Primary Care Provider Reason for Visit * Reason Onset Date Comments Pre Procedure 01/28/2025 Encounter Details Date Type Department Care Team (Late st Contact Info) Description 01/28/2025 Telephone [facility] [address] [facility] Advanced [facility] [address] [place] [address] Ruddy Mcclain MD [address] [place], [place] [address] Pre Procedure Social History Tobacco Use Types Packs/Day Years Used Date Smoking Tobacco: Former Cigarettes Q uit: 01/10/2020 Alcohol Use Standard Drinks/Week Comments Never 0 [...] on file Legal Sex 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
--- OUTSIDE RECORDS SUMMARY | 2025-01-28 14:16 | XMS_ITS | Encounter Summary ---
Author Organization [facility] Address [address] [place] [id number] Care Team Providers Care Non Ferrous Material Handler Name Role Phone Alethea Roberto Primary Care Provider Alethea Roberto Unavailable [phone] Alethea Roberto Primary Care Provider Yvette Cunningham MD Primary Care Provider [phone] Encounter Details Date Type Department Care Team (Late st Contact Info) Description 12/13/2020 Big Super Searcht Message Enc [facility] [address], [address] [address] Jamil Lyons MD [address] [place], [place] [id number] Visit Follow Up Social History Tobacco Use [...] Sex Assigned at Female 06/16/2024 3:02 PM DIGITAL PRINT OPERATOR Legal Sex Female 10:13 AM CDT [...] Rule Out 04/10/2024 04/10/2024 04/10/2024 12:09 PM DIGITAL PRINT OPERATOR COVID-19 Rule Out 10/02/2024 10/02/2024 10/02/2024 1:17 PM CDT documented as of this encounter Care Teams Non Ferrous Material Handler Relationship Specialty Start Date End Date Aleteha Roberto APNP [address] [place] [address] PCP - General NURSE PRACTITIONER 05/06/20 03/08/21 Alethea Roberto APNP [address] [place] [address] PCP - General NURSE PRACTITIONER 02/18/23 07/07/24 Yvette Cunningham MD [address] [place] [address] PCP - General FAMILY PRACTICE 07/08/24 Alethea Roberto APNP [address] [place] [address] Nurse Practitioner NURSE PRACTITIONER 03/09/21 documented as of this encounter
--- OUTSIDE RECORDS SUMMARY | 2025-01-28 14:16 | XMS_ITS | Encounter Summary ---
Author Organization [facility] Address [address] [place] [address] Care Team Providers Care Artillery Specialist Name Role Phone Alethea Roberto CREW MEMBER Primary Care Provider [phone] Reason for Visit * Reason Onset Date Comments PMC Preprocedure 01/28/2025 Encounter Details Date Type Department Care Team (Late st Contact Info) Description 01/28/2025 Telephone [facility] [address] [facility] [address] [place] [address] Ruddy Mcclain MD [address] [place] [address] PMC Preprocedure Social History Tobacco Use Types Packs/Day Years [...] on file Legal 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
[2025-01-28 14:17] LABS: Hematocrit 38.1 % (35.0-49.0); Hemoglobin 10.6 g/dL (12.0-15.0); Immature Granulocyte Percent A 0.7 % (0.0-0.0); Immature Platelet Fraction Pct 1.8 % (1.0-7.0); Lymphocytes Absolute Auto 2.16 K/mm3 (1.10-4.50); Mean Corpuscular HGB Conc 27.8 g/dL (32-36); Mean Corpuscular Hemoglobin 26.2 pg (27.0-31.0); Mean Corpuscular Volume 94.3 fL (78.0-102.0); Nucleated Red Blood Cells Absolute Auto 0.00 K/mm3 (0.00-0.00); Nucleated Red Blood Cells Perc 0.0 % (0-0.0); Platelet Count Result 197 K/mm3 (150-420); Red Blood Count 4.04 M/mm3 (4.20-5.40); White Blood Count 10.0 K/mm3 (4.8-10.8)
[2025-01-28 14:23] LABS: Alanine Aminotransferase 13 U/L (6-35); Albumin Level 3.7 g/dL (3.5-5.1); Alkaline Phosphatase 122 U/L (38-126); Anion Gap 11 mmol/L (4-12); Aspartate Amino Transferase 17 U/L (14-36); Bilirubin,Total 0.4 mg/dL (0.2-1.3); Blood Urea Nitrogen 13 mg/dL (7-17); Calcium 9.3 mg/dL (8.4-10.2); Carbon Dioxide 23 mmol/L (22-30); Chloride 107 mmol/L (98-107); Estimated CRCL calculation 75 ml/min; Estimated Glomerular Filt Rate > 60; Glucose 166 mg/dL (65-110); Osmolality Calculated 296 mOsm/kg (285-295); Potassium 3.8 mmol/L (3.4-5.0); Sodium 141 mmol/L (137-145); Total Protein 6.3 g/dL (6.3-8.2)
[2025-01-28 14:32] LABS: CRP 1.0 mg/dL (<1.0)
[2025-01-28 14:33] LABS: Influenza A QL RT-PCR Negative (Negative); Influenza B QL RT-PCR Negative (Negative); RSV RNA, RT-PCR Negative (Negative); SARS-CoV-2 RNA PCR Negative (Negative)
[2025-01-28 14:39] LABS: Troponin I < 0.012 ng/mL (0.000-0.034)
[2025-01-28 14:40] LABS: NT Pro B Type Natriuretic Pept 299 pg/mL (19.9-100)
[2025-01-28 14:41] LABS: Add Urine Microscopic? YES; Appearance Urine Clear (Clear); Glucose Urine UA Negative (Negative); Leukocyte Esterase Ur Negative LEU/UL (Negative); Nitrate Urine Negative (Negative); Specific Grav Ur 1.015 (1.010-1.020)
[2025-01-28 14:45] LABS: INR 0.9; Partial Thromboplastin Time 23.2 Sec (23.9-30.70); Prothrombin Time 10.2 Seconds (9.50-12.1)
[2025-01-28 14:59] LABS: Cannabinoid Screen Urine Negative (Negative)
--- NOTE | 2025-01-28 15:11 | ED.AMS ---
HPI - Altered Mental Status General Chief Complaint: Altered Mental Status Stated Complaint: ALTERED Time Seen by Provider: 01/28/25 13:30 Source: patient and family Mode of arrival: ambulatory Limitations: no limitations History of Present Illness HPI narrative: This is a 59-year-old known diabetic presents after she felt dehydrated and wanted her son to take her to an IV infusion center but he brought her to the emergency room instead and she became altered in her mental status. Patient denied any chest pain no shortness of breath does have some nausea with no episodes of vomiting no chest pain no shortness of breath no abdominal pain no flank pain no neurological deficits. MD complaint: altered mental status and confusion Onset (ago): hour(s) Timing confirmed by: family member Severity: mild Associated symptoms: nausea/vomiting Related Data Home Medications ?Medication ?Instructions ?Recorded ?Confirmed ?Last Taken ?Type albuterol sulfate 90 mcg/actuation 2 puff inhalation Q4-5H PRN 04/14/21 01/18/25 11/11/24 History aerosol inhaler Shortness Of Breath cyclobenzaprine 10 mg tablet 10 mg PO TID PRN Muscle Spasm 04/14/21 01/18/25 11/07/24 History furosemide 20 mg tablet 20 mg PO DAILY 04/14/21 01/18/25 11/13/24 History insulin aspart U-100 100 unit/mL 1 sliding scale dose subcut 04/14/21 01/18/25 Unknown History subcutaneous solution (Novolog USEASDIRECTD U-100 Insulin aspart) lisinopril 30 mg tablet 30 mg PO DAILY 04/14/21 01/18/25 11/13/24 History melatonin 10 mg tablet 10 mg PO HS 04/14/21 01/18/25 11/13/24 History rosuvastatin 20 mg tablet 20 mg PO HS 04/14/21 01/18/25 11/13/24 History amlodipine 10 mg tablet 10 mg PO DAILY 10/18/24 01/18/25 11/13/24 History aspirin 81 mg chewable tablet 81 mg PO DAILY 10/18/24 01/18/25 11/13/24 History (Aspirin Childrens) calcium carbonate (Calcium 500) 500 mg PO DAILY 10/18/24 01/18/25 11/13/24 History fluticasone 500 mcg-salmeterol 50 1 inh inhalation Q12H 0501/18/25 11/13/24 History mcg/dose blistr powdr for inhalation (Wixela Inhub) metoprolol succinate 50 mg 50 mg PO DAILY 10/18/24 01/18/25 11/13/24 History tablet,extended release 24 hr buspirone 15 mg tablet 15 mg PO BID 11/17/24 01/18/25 Unknown History fluoxetine 20 mg capsule 20 mg PO DAILY 11/17/24 01/18/25 Unknown History fluoxetine 40 mg capsule (Prozac) 40 mg PO HS 11/17/24 01/18/25 Unknown History gabapentin 100 mg capsule 100 mg PO TID 11/17/24 01/18/25 Unknown History olanzapine 5 mg tablet 5 mg PO HS 11/17/24 01/18/25 Unknown History oxycodone-acetaminophen 5 mg-325 1 tablet PO Q12H PRN pain 11/17/24 01/18/25 Unknown History mg tablet Allergies Allergy/AdvReac Type Severity Reaction Status Date / Time Sulfa (Sulfonamide Allergy Unknown Rash Verified 01/28/25 13:40 Antibiotics) Latex, Natural Rubber Allergy Swelling Verified 01/28/25 13:40 of Lip/Tongue/Throat Review of Systems Review of Systems: All systems reviewed & are unremarkable except as noted in HPI and below PMFSH Past Medical History Medical History Trimalleolar fracture of right ankle Morbid obesity with BMI of 50.0-59.9, adult Arthritis Dyspnea on exertion COPD (chronic obstructive pulmonary disease) with chronic bronchitis Osteopenia Chronic back pain Fibromyalgia Displaced bimalleolar fracture of right ankle Hemorrhoids GERD (gastroesophageal reflux disease) Diabetes Torticollis Depression with suicidal ideation CVA (cerebral vascular accident) Dyslipidemia Hypertension Surgical History Surgical History Hx of cholecystectomy Family History Family History Father Alzheimer dementia Mother Parkinson's disease Mother No problems noted. Other Unknown family medical history Social History Social History Smoking status: Former smoker Tobacco type: cigarettes Smoking end date: 06/03/22 Alcohol intake: never Substance use: current Substance use type: marijuana Other substance usage details: USING [employer] Last use: 11/10/2024 Do You Feel Safe in your Home?: Yes Lack of Transportation: No Lack of Food: Never True Current Housing: I Have Housing Concerned About Future Housing: No Difficulty Paying Gas/Electric Bills: No Difficulty Paying for Meds: No Currently Unemployed: No Education: Decline to Answer Difficulty w/ Childcare or Family Care: No Spiritual care concerns: No Exam Const: General: healthy appearing, no acute distress and alert Nutritional Appearance: well nourished and obese Orientation/consciousness: patient oriented x3 Limitations: no limitations HENMT: Head: normal to inspection Eyes: Conjunctivae: conjunctivae normal Pupils: Equal, round and reactive pupils present EOM: EOMs intact bilaterally Neck: Neck: normal visual inspection and no lymphadenopathy Resp: Effort & Inspection: normal respiratory effort Auscultation: clear to auscultation bilaterally Cardio: Rate: regular rate Rhythm: regular rhythm GI: GI Palp: Yes Soft to palpation Auscultation: normal bowel sounds : General: Yes bladder normal to palpation Urinary Catheter: Urinary Catheter: patent and draining Back/Spine/Pelvis: Back: no CVA tenderness Skin: General skin exam: normal color Rashes: no rashes Wounds: no wounds Neuro: General: patient oriented x3, moves all extremities, no meningeal signs and no focal motor deficits Extrem: General: normal to inspection and no clubbing, cyanosis or edema Psych: Mental Status: mental status grossly normal Course Course Emergency Course: Patient had an EKG which showed normal sinus rhythm, blood sugars were 170, blood workup performed and reviewed showed no acute abnormalities urinalysis was negative troponins were negative chest x-ray showed no acute cardiopulmonary abnormality. CT scan showed no acute intracranial process. Patient received IV fluids and 2 doses of IV Zofran and after the IV fluids the patient is back to her baseline and wants to go home. Vital Signs Vital signs: Vital Signs Temperature 36.8 C 01/28/25 13:28 Pulse Rate 108 H 01/28/25 13:28 Respiratory Rate 16 01/28/25 13:28 Blood Pressure 118/88 01/28/25 13:28 Oxygen Delivery Room Air 01/28/25 13:28 Temperature 36.9 C 01/28/25 15:02 Pulse Rate 90 01/28/25 15:04 Respiratory Rate 24 H 01/28/25 15:02 Blood Pressure 145/89 H 01/28/25 15:02 Pulse Oximetry 100 01/28/25 15:02 Oxygen Delivery Room Air 01/28/25 13:35 MDM - Altered Mental Status Lab Data 01/28/25 13:40 01/28/25 14:13 Labs: Lab Results 01/28/25 01/28/25 01/28/25 Range/Units 13:40 13:48 14:13 WBC 10.0 (4.8-10.8) K/mm3 RBC 4.04 L (4.20-5.40) M/mm3 Hgb 10.6 L (12.0-15.0) g/dL Hct 38.1 (35.0-49.0) % MCV 94.3 (78.0-102.0) fL MCH 26.2 L (27.0-31.0) pg MCHC 27.8 L (32-36) g/dL RDW 18.3 H (11.6-14.4) % Plt Count 197 (150-420) K/mm3 MPV 10.9 (9.2-11.8) fl Immature Gran % (Auto) 0.7 H (0.0-0.0) % Neut % (Auto) 68.4 (50.0-70.0) % Lymph % (Auto) 21.5 (18.0-42.0) % [place] % (Auto) 8.6 (2.0-11.0) % Eos % (Auto) 0.2 L (1.0-6.0) % Baso % (Auto) 0.6 (0.0-1.0) % Lymph # (Auto) 2.16 (1.10-4.50) K/mm3 [place] # (Auto) 0.86 (0.10-0.90) K/mm3 Eos # (Auto) 0.02 (0.02-0.50) K/mm3 Baso # (Auto) 0.06 (0.00-0.10) K/mm3 Abs Immat Gran (auto) 0.07 H (0.00-0.00) K/mm3 Absolute Neuts (auto) 6.86 (1.70-7.20) K/mm3 Absolute Nucleated RBC 0.00 (0.00-0.00) K/mm3 Nucleated RBC % 0.0 (0-0.0) % % Immature Plt Fraction 1.8 (1.0-7.0) % PT (9.50-12.1) Seconds INR APTT (23.9-30.70) Sec Sodium 141 (137-145) mmol/L Potassium 3.8 (3.4-5.0) mmol/L Chloride 107 (98-107) mmol/L Carbon Dioxide 23 (22-30) mmol/L Anion Gap 11 (4-12) mmol/L BUN 13 D (7-17) mg/dL Creatinine 0.65 L (0.7-1.0) mg/dL Estim Creat Clear Calc 75 ml/min Estimated GFR > 60 (59 - ) Glucose 166 H (65-110) mg/dL Calculated Osmolality 296 H (285-295) mOsm/kg Lactic Acid (0.4-2.0) mmol/L Calcium 9.3 (8.4-10.2) mg/dL Total Bilirubin 0.4 (0.2-1.3) mg/dL AST 17 (14-36) U/L ALT 13 (6-35) U/L Alkaline Phosphatase 122 (38-126) U/L Troponin I (0.000-0.034) ng/mL C-Reactive Protein (<1.0) mg/dL NT-Pro-B Natriuret Pep 299 H (19.9-100) pg/mL Total Protein 6.3 (6.3-8.2) g/dL Albumin 3.7 (3.5-5.1) g/dL Urine Color (Yellow) Urine Appearance (Clear) Urine pH (5.0-8.0) Ur Specific [place] (1.010-1.020) Urine Protein (Negative) Urine Glucose (UA) (Negative) Urine Ketones (Negative) Ur Blood (Man) (Negative) Urine Nitrate (Negative) Urine Bilirubin (Negative) Urine Urobilinogen (0.2-1.0) mg/dL Leukocyte Esterase Rfl (Negative) JINA/UL Urine RBC (0-2) /hpf Urine WBC (0-3) /hpf Ur Squamous Epith Cells (Few) /hpf Urine Bacteria (None) /hpf Urine Opiates Screen (Negative) Urine Methadone Screen (Negative) Ur Barbiturates Screen (Negative) Ur Phencyclidine Scrn (Negative) Ur Amphetamine Screen (Negative) U Benzodiazepines Scrn (Negative) Urine Cocaine Screen (Negative) U Cannabinoids Screen (Negative) Influenza A (RT-PCR) Negative (Negative) Influenza B (RT-PCR) Negative (Negative) RSV (RT-PCR) Negative (Negative) SARS-CoV-2 RNA (RT-PCR) Negative (Negative) 01/28/25 01/28/25 01/28/25 Range/Units 14:14 14:26 14:34 WBC (4.8-10.8) K/mm3 RBC (4.20-5.40) M/mm3 Hgb (12.0-15.0) g/dL Hct (35.0-49.0) % MCV (78.0-102.0) fL MCH (27.0-31.0) pg MCHC (32-36) g/dL RDW (11.6-14.4) % Plt Count (150-420) K/mm3 MPV (9.2-11.8) fl Immature Gran % (Auto) (0.0-0.0) % Neut % (Auto) (50.0-70.0) % Lymph % (Auto) (18.0-42.0) % [place] % (Auto) (2.0-11.0) % Eos % (Auto) (1.0-6.0) % Baso % (Auto) (0.0-1.0) % Lymph # (Auto) (1.10-4.50) K/mm3 [place] # (Auto) (0.10-0.90) K/mm3 Eos # (Auto) (0.02-0.50) K/mm3 Baso # (Auto) (0.00-0.10) K/mm3 Abs Immat Gran (auto) (0.00-0.00) K/mm3 Absolute Neuts (auto) (1.70-7.20) K/mm3 Absolute Nucleated RBC (0.00-0.00) K/mm3 Nucleated RBC % (0-0.0) % % Immature Plt Fraction (1.0-7.0) % PT 10.2 (9.50-12.1) Seconds INR 0.9 APTT 23.2 L (23.9-30.70) Sec Sodium (137-145) mmol/L Potassium (3.4-5.0) mmol/L Chloride (98-107) mmol/L Carbon Dioxide (22-30) mmol/L Anion Gap (4-12) mmol/L BUN (7-17) mg/dL Creatinine (0.7-1.0) mg/dL Estim Creat Clear Calc ml/min Estimated GFR (59 - ) Glucose (65-110) mg/dL Calculated Osmolality (285-295) mOsm/kg Lactic Acid 1.7 (0.4-2.0) mmol/L Calcium (8.4-10.2) mg/dL Total Bilirubin (0.2-1.3) mg/dL AST (14-36) U/L ALT (6-35) U/L Alkaline Phosphatase (38-126) U/L Troponin I < 0.012 (0.000-0.034) ng/mL C-Reactive Protein 1.0 (<1.0) mg/dL NT-Pro-B Natriuret Pep (19.9-100) pg/mL Total Protein (6.3-8.2) g/dL Albumin (3.5-5.1) g/dL Urine Color Light yellow (Yellow) Urine Appearance Clear (Clear) Urine pH 7.0 (5.0-8.0) Ur Specific [place] 1.015 (1.010-1.020) Urine Protein 1+ H (Negative) Urine Glucose (UA) Negative (Negative) Urine Ketones Negative (Negative) Ur Blood (Man) Negative (Negative) Urine Nitrate Negative (Negative) Urine Bilirubin Negative (Negative) Urine Urobilinogen 1.0 (0.2-1.0) mg/dL Leukocyte Esterase Rfl Negative (Negative) JINA/UL Urine RBC 0-2 (0-2) /hpf Urine WBC 0-3 (0-3) /hpf Ur Squamous Epith Cells Rare (Few) /hpf Urine Bacteria Trace (None) /hpf Urine Opiates Screen Negative (Negative) Urine Methadone Screen Negative (Negative) Ur Barbiturates Screen Negative (Negative) Ur Phencyclidine Scrn Negative (Negative) Ur Amphetamine Screen Negative (Negative) U Benzodiazepines Scrn Negative (Negative) Urine Cocaine Screen Negative (Negative) U Cannabinoids Screen Negative (Negative) Influenza A (RT-PCR) (Negative) Influenza B (RT-PCR) (Negative) RSV (RT-PCR) (Negative) SARS-CoV-2 RNA (RT-PCR) (Negative) Critical Care Time Critical Care Time Critical Care Time: No Discharge Plan Discharge Clinical Impression: Dehydration, Gastroenteritis Patient Disposition: Home Condition: Stable Instructions: Antibiotic Form, Dehydration (ED), Gastroenteritis (ED) Additional Instructions: advised patient to take medication as prescribed drink plenty of fluids and follow up with primary within the next 3 to 5 days for further evaluation and treatment. Patient Language: Senegalese Prescriptions: New ondansetron 4 mg tablet,disintegrating 4 mg PO Q6H PRN (Reason: nausea and vomiting) Qty: 14 0RF No Action cyclobenzaprine 10 mg tablet 10 mg PO TID PRN (Reason: Muscle Spasm) lisinopril 30 mg tablet 30 mg PO DAILY furosemide 20 mg tablet 20 mg PO DAILY albuterol sulfate 90 mcg/actuation HFA aerosol inhaler 2 puff INHALATION Q4-5H PRN (Reason: Shortness Of Breath) rosuvastatin 20 mg tablet 20 mg PO HS insulin aspart U-100 [Novolog U-100 Insulin aspart] 100 unit/mL Solution 1 sliding scale dose SUBCUT USEASDIRECTD Patient Comments: Patient states it was off for a possible back surgery Rx Instructions: pt has insulin pump pre set. 8033-0161 2.20 units/hr [id number] 1.90 units/hr ICR:7 ISF:25 TARGET:100-110 melatonin 10 mg Tablet 10 mg PO HS amlodipine 10 mg tablet 10 mg PO DAILY fluticasone propion-salmeterol [Wixela Inhub] 500-50 mcg/dose blister with device 1 inh INHALATION Q12H aspirin [Aspirin Childrens] 81 mg tablet,chewable 81 mg PO DAILY calcium carbonate [Calcium 500] 500 mg calcium (1,250 mg) tablet,chewable 500 mg PO DAILY metoprolol succinate 50 mg tablet extended release 24 hr 50 mg PO DAILY pantoprazole 40 mg Tablet,Delayed Release (Dr/Ec) 40 mg PO Q12HR Qty: 60 0RF ondansetron 4 mg tablet,disintegrating 4 mg PO Q8H PRN (Reason: nausea and vomiting) Qty: 30 0RF cephalexin 500 mg capsule 500 mg PO Q8H Qty: 15 0RF ondansetron 4 mg tablet,disintegrating 4 mg PO Q8H Qty: 20 0RF gabapentin 100 mg capsule 100 mg PO TID olanzapine 5 mg tablet 5 mg PO HS buspirone 15 mg tablet 15 mg PO BID fluoxetine 20 mg capsule 20 mg PO DAILY fluoxetine [Prozac] 40 mg capsule 40 mg PO HS oxycodone-acetaminophen 5-325 mg tablet 1 tablet PO Q12H PRN (Reason: pain) magnesium oxide 400 mg (241.3 mg magnesium) Tablet 400 mg PO BID Qty: 60 0RF insulin glargine [Lantus Solostar U-100 Insulin] 100 unit/mL (3 mL) insulin pen 28 unit subcut QPM Qty: 15 0RF Follow-up/Referrals: Marisa,Yvette Oreilly [Other] Time of Disposition: 15:17
--- NOTE | 2025-01-30 17:25 | PC.NURSE ---
Preliminary blood culture report; no growth in 24 hours.
--- NOTE | 2025-02-01 17:06 | PC.NURSE ---
Addendum entered by Megha Trinidad RN 02/01/25 17:07: Preliminary blood culture report; no growth in 48 hours Original Note: Preliminary blood culture report; no growth in 24 hours
--- NOTE | 2025-02-04 12:12 | PC.NURSE ---
FINAL BLOOD CULTURE NO GROWTH IN 5 DAYS
== END 2025-01-28 15:19 | disposition home or self-care (01) ==
PROVIDERS: Emergency Provider Emergency Medicine
DX: K52.9 Noninfective gastroenteritis and colitis, unspecified (principal); J44.9 Chronic obstructive pulmonary disease, unspecified; E11.9 Type 2 diabetes mellitus without complications; I10 Essential (primary) hypertension; E78.5 Hyperlipidemia, unspecified; Z86.73 Personal history of transient ischemic attack (TIA), and cerebral infarction without residual deficits; Z87.891 Personal history of nicotine dependence; Z20.822 Contact with and (suspected) exposure to COVID-19
CPT/HCPCS: 36415; 70450; 71045; 80053; 80307; 81001; 82948; 83605; 83880; 84484; 85025; 85055; 85610; 85730; 86140; 87637; 93005; 96361; 96374; 96376; 99284; J2405; J7030